=== PATIENT | female | born 1980 | race Caucasian/White ===

== ENCOUNTER 2020-01-27 12:45 | Emergency (ER) | payer MEDICAID, SELFPAY ==
[2020-01-27 12:55] VITALS: BP 124/86; PULSE 84; RESP 16; TEMP 36.6; O2SAT 98; BMI 25.4
--- NOTE | 2020-01-27 13:06 | CT_ITS ---
PROCEDURE: CT HEAD/BRAIN WO CON CLINICAL INDICATION: recheck hx subdural 01/21 continue headache Subdural hematoma follow up COMPARISON: No exams were available for comparison TECHNIQUE: Axial images obtained. All CT scans at the facility use one or more dose reduction, viz: automated exposure control, ma/kV adjustment per patient size (including targeted exams where dose is matched to indication, i.e. head), or iterative reconstruction technique. FINDINGS: No midline shift or mass effect is evident. The exam is follow-up for subdural hematoma however there are no previous studies available at this institution for comparison. There is increased density in the cortical region of the left frontal area which could be due to cortical contusion. There is some subdural I so density noted at this area which may reflect a subacute hematoma. This is difficult to quantitate without IV contrast. However, the there is no midline shift or mass effect. Mucosal thickening is present involving the left sphenoid sinus. No acute calvarial fracture. IMPRESSION: 1. Suspect small subacute subdural hematoma in the left frontal region somewhat difficult to quantitate without IV contrast. There is no midline shift or mass effect. Also suspect cortical contusion in the left frontal area 2. Left sphenoid sinus disease Dictated by: Nelson Garcia MD 01/27/2020 13:47 Nelson Garcia MD in [place] 01/27/2020 13:47
--- NOTE | 2020-01-27 13:06 | HMH.EDHA ---
ED Disposition Clinical Impression: Postconcussion syndrome Disposition: Home, Self-Care Condition on Discharge: Good Instructions: DI for Postconcussion Syndrome Referrals: Sergey Oh MD [Primary Care Provider] - 3 days - Critical Care Critical Care Time: No Attestation: On , the high probability of a clinically significant, sudden or life threatening deterioration of the following system(s) required my full and direct attention, intervention and personal management. The time I documented below is in addition to time spent performing reported procedures but includes the following listed in this critical care notation. Medical Decision Making - Medical Records Medical records reviewed: Yes: I reviewed the patient's medical records. - Anmol Inquiry Pt receiving controlled substance: No Vital Signs: 01/27/20 12:55 Temperature 98 F Temperature Source Oral Pulse Rate [Radial] 84 Respiratory Rate 16 Blood Pressure [Right Arm] 124/86 Blood Pressure Mean [Right Arm] 98 Blood Pressure Position [Right Arm] Sitting 02 Sat by Pulse Oximetry 98 Oxygen Delivery Method Room Air - Lab Data Lab results reviewed: Yes: I reviewed the patient's lab results. Lab Results 01/27/20 12:49: Urine HCG, Qual Negative - CT Data CT Scan: Head Time Received: 14:[address] Reviewed: Yes: I have reviewed the patient's CT results Findings Narrative: 1. Suspect small subacute subdural hematoma in the left frontal region somewhat difficult to quantitate without IV contrast. There is no midline shift or mass effect. Also suspect cortical contusion in the left frontal area 2. Left sphenoid sinus disease Medical Decision Narrative: Patient with subacute subdural. No acute findings. Likely postconcussive syndrome. Advised follow-up with primary care provider. I discussed this with her PCP, Dr. Oh, who agrees with plan and will follow up with the patient. Patient is neurologically intact at discharge. Headache HPI - General Chief Complaint: Headache Stated Complaint: referred by steve for head CT Time Seen by Provider: 01/27/20 13:06 Mode of Arrival: Ambulatory Limitations: No Limitations Description of Symptoms (Recalled from ER Triage Doc. by RN): to ed per pvt car pt sent by pcp for repeat head ct. pt states hx of subdural hematoma dx 01/21 due to fall at [facility] ed transferred to and d/ravi 01/22. pt states she continues with pressure type headache and hearing a continuous buzzing sound. c/o salena connell. states no relief of headache with tylenol - History of Present Illness HPI Narrative: This is a 39-year-old female with a past medical history significant for hypothyroidism who presents to the emergency department for concern of persistent headaches and hearing disturbances post fall on January 20. She had a subdural hemorrhage at that time, was discharged after admission at [facility] and advised to follow-up outpatient. However she has had persistent headaches and hearing disturbances and is sent here by her primary care provider for CT scan of the head. She denies any lateralizing motor or sensory symptoms, confusion, visual disturbances. Not take blood thinners. No exacerbating or alleviating factors. - Related Data Previous Rx's Medication Instructions Recorded levothyroxine 100 mcg tablet 100 mcg PO DAILY #120 tab 01/27/20 Allergies Allergy/AdvReac Type Severity Reaction Status Date / Time No Known Allergies Allergy Verified 01/27/20 11:17 [facility] History - Hepatitis A Screen Drug use history?: No High risk sexual behaviors?: No History of sexually transmitted infection?: No Currently employed?: No Childcare worker?: No Do you have indoor plumbing?: Yes Do you have electricity?: Yes Attestation statement:: This patient has been screened for Hepatitis A risk factors. I have reviewed the patient's past medical history: Yes Medical History: Reports
[2020-01-27 13:28] LABS: Urine Pregnancy, HCG Qual. Negative (Negative)
--- NOTE | 2020-01-27 15:11 | PC.NURSE ---
dr hammonds just spoke with dr wilson
[2020-01-27 15:20] VITALS: BP 122/74; PULSE 78; RESP 16; TEMP 36.6; O2SAT 98
== END 2020-01-27 15:21 | disposition home or self-care (01) ==
PROVIDERS: Emergency Provider Emergency Medicine; PCP Family Medicine
DX: G44.319 Acute post-traumatic headache, not intractable (principal); F07.81 Postconcussional syndrome; S06.5X9D Traumatic subdural hemorrhage with loss of consciousness of unspecified duration, subsequent encounter; E03.9 Hypothyroidism, unspecified; F17.210 Nicotine dependence, cigarettes, uncomplicated; Z85.850 Personal history of malignant neoplasm of thyroid
CPT/HCPCS: 70450; 81025; 99282

== ENCOUNTER 2020-02-25 10:31 | Emergency (ER) | payer MEDICAID, SELFPAY ==
[2020-02-25 10:36] VITALS: BP 132/81; PULSE 86; RESP 18; TEMP 36.6; O2SAT 99; BMI 25.4
[2020-02-25 10:54] VITALS: BP 132/81; PULSE 86; RESP 18; TEMP 36.6; O2SAT 99; BMI 25.2
--- NOTE | 2020-02-25 10:56 | HMH.EDUTC ---
[facility] [place] Clinical Impression: Generalized pruritus Disposition: Home, Self-Care Condition on Discharge: Good Instructions: DI for Scabies Additional Instructions: Use the medications as prescribed. Follow up with your primary care doctor. Don't pick at your skin or the irritated places on your skin. GO TO THE ER FOR ANY WORSENING SYMPTOMS OR CONCERNS Prescriptions: diphenhydrAMINE HCL [Diphenhydramine HCl] 25 mg PO Q6HP PRN #30 cap PRN Reason: Itching Transmission Status: Received by [id number] Permethrin [Elimite] 1 applicatio TP ONCE #1 bottle Transmission Status: Received by [id number] Referrals: Sergey Oh MD [Primary Care Provider] - Time of Disposition: 11:07 Medical Decision Making - Medical Records Medical records reviewed: No: I reviewed the patient's medical records. - Anmol Inquiry Pt receiving controlled substance: No Vital Signs: 02/25/20 10:36 02/25/20 10:54 02/25/20 11:27 Temperature 97.9 F 97.9 F 98.2 F Temperature Source Oral Oral Oral Pulse Rate 84 Pulse Rate [Radial] 86 86 Respiratory Rate 18 18 16 Blood Pressure 0/0 L Blood Pressure [Right Arm] 132/81 132/81 Blood Pressure Mean [Right Arm] 98 98 Blood Pressure Source Automatic Cuff Blood Pressure Source [Right Arm] Automatic Cuff Automatic Cuff Blood Pressure Position Sitting Blood Pressure Position [Right Arm] Sitting Sitting 02 Sat by Pulse Oximetry 99 99 Oxygen Delivery Method Room Air Room Air Room Air [facility] HPI - General Stated complaint: Possible parasite in skin Time Seen by Provider: 02/25/20 10:56 Mode of Arrival: Ambulatory Source of Information: Patient Limitations: No Limitations Description of Symptoms (Recalled from Triage Doc. by RN): States she has something under her skin that showed up after she showered. - History of Present Illness Provider Complaint: She states that she has a parasite under her skin. She has had itching of her arms, upper back and multiple areas on arms and legs. She denies any fever or chills. - Related Data Previous Rx's Medication Instructions Recorded levothyroxine 100 mcg tablet 100 mcg PO DAILY #120 tab 01/27/20 Permethrin [Elimite] 1 applicatio TP ONCE #1 bottle 02/25/20 diphenhydrAMINE HCL 25 mg PO Q6HP PRN #30 cap 02/25/20 [Diphenhydramine HCl] Allergies Allergy/AdvReac Type Severity Reaction Status Date / Time No Known Allergies Allergy Verified 01/27/20 11:17 [facility] History - Hepatitis A Screen Attestation statement:: This patient has been screened for Hepatitis A risk factors. I have reviewed the patient's past medical history: Yes Medical History: Reports:: Cancer (thyroid cancer dx 08/2019) Other Medical History: Reports: Hypothyroidism Laterality Cases: Right: Arthroscopy Knee, Bilateral: Tonsillectomy Other Surgeries: Yes: Cholecystectomy, Comment: total thyroidectomy - Social History Smoking Status: Current every day smoker # Packs/Day (cigarettes): 1 Alcohol Intake: current Alcohol Intake Frequency:: holidays/special occasions only Substance Use Type: denies use Occupational Status: unemployed Household Members: family ROS Obtained: Yes All systems reviewed & no additional complaints - Constitutional Constitutional: Denies chills, Denies fever(s) - Eyes Eyes: Denies eye discharge - ENT Ears, Nose, Mouth, and Throat: Denies dizziness, Denies otalgia, Denies sore throat - Cardiovascular Cardiovascular: Denies chest pain - Respiratory Respiratory: No chest congestion, No cough - Integumentary/Breasts Skin/Breast: Reports as per HPI Physical Exam - General General appearance: alert, in no apparent distress - Head Head exam: atraumatic, normocephalic, normal inspection - Eye Eye exam: Present: normal appearance, PERRL, EOMI - ENT ENT exam: Present: normal exam, normal oropharynx, mucous membranes moist, TM's normal bilaterally, normal ext
[2020-02-25 11:27] VITALS: BP 0/0; PULSE 84; RESP 16; TEMP 36.8; O2SAT 98
--- NOTE | 2020-02-25 11:29 | PC.NURSE ---
Pt upset at discharge and advises that she will not sign papers because she wanted us to remove parasite from her skin. No evidence of any bigs on pt skin at this time. Advise pt Fletcher had called medicine in for her she replies with Fine fuck you whatever and leaves without signing d/c papers.
== END 2020-02-25 11:30 | disposition home or self-care (01) ==
PROVIDERS: Emergency Provider Nurse Practitioner Family; PCP Family Medicine
DX: L29.8 Other pruritus (principal)
CPT/HCPCS: 99201

== ENCOUNTER → 2020-04-07 16:06 | Outpatient (CLI) | payer MEDICAID, SELFPAY ==
[2020-04-07 16:22] LABS: Amphetamine/Metha Screen,Urine Positive ng/ml (<1000)
[2020-04-07 16:23] LABS: Barbiturates Screen,Urine Negative ng/ml (<200); Benzodiazepines Screen,Urine Negative ng/ml (<200)
[2020-04-07 16:24] LABS: Cannabinoid Screen,Urine Negative ng/ml (<50); Cocaine Screen,Urine Negative ng/ml (<300)
[2020-04-07 16:25] LABS: Methadone Screen,Urine Negative ng/ml (<300)
[2020-04-07 16:26] LABS: Opiate Screen,Urine Negative ng/ml (<300); Phencyclidine Screen,Urine Negative ng/ml (<25)
[2020-04-11 10:49] LABS: Neisseria gonorrhoeae, NAA Negative (Negative)
== END ==
PROVIDERS: Visit Provider Family Medicine
DX: L29.9 Pruritus, unspecified (principal); N89.8 Other specified noninflammatory disorders of vagina; Z79.899 Other long term (current) drug therapy
CPT/HCPCS: 80305; 87491; 87591

== ENCOUNTER → 2021-06-22 19:49 | Outpatient (CLI) | payer MEDICAID, SELFPAY ==
[2021-06-22 19:24] LABS: Opiate Screen,Urine Negative ng/ml (<300)
[2021-06-22 19:25] LABS: Phencyclidine Screen,Urine Negative ng/ml (<25)
[2021-06-22 19:36] LABS: Barbiturates Screen,Urine Negative ng/ml (<200)
[2021-06-22 19:37] LABS: Benzodiazepines Screen,Urine Negative ng/ml (<200)
[2021-06-22 19:38] LABS: Amphetamine/Metha Screen,Urine Negative ng/ml (<1000); Cannabinoid Screen,Urine Positive ng/ml (<50)
[2021-06-22 19:39] LABS: Cocaine Screen,Urine Negative ng/ml (<300); Methadone Screen,Urine Negative ng/ml (<300)
== END ==
PROVIDERS: Visit Provider Family Medicine
DX: F19.11 Other psychoactive substance abuse, in remission (principal); C73 Malignant neoplasm of thyroid gland
CPT/HCPCS: 80305; 84443

== ENCOUNTER → 2022-05-16 15:54 | Outpatient (CLI) | payer MEDICAID, SELFPAY ==
--- NOTE | 2022-05-16 16:02 | XR_ITS ---
FINAL REPORT CLINICAL HISTORY: pulm lesion FINDINGS: PA and lateral views of the chest are obtained. There is no prior exam for comparison. The cardiac and mediastinal silhouettes are within normal limits. The lungs are hyperinflated but clear. There is no pleural effusion, pneumothorax, or acute osseous abnormality. IMPRESSION: No radiographic evidence of acute cardiac or pulmonary disease. Reviewed, Interpreted and Dictated by Linh Vines MD Transcribed by Kasia Mon Authenticated and [facility]
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
== END ==
PROVIDERS: PCP Family Medicine; Visit Provider Family Medicine
DX: J98.4 Other disorders of lung (principal); T14.8XXA Other injury of unspecified body region, initial encounter
CPT/HCPCS: 71046; 73030

== ENCOUNTER → 2023-01-13 23:38 | Outpatient (CLI) | payer SELFPAY ==
[2023-01-13 18:26] LABS: Alanine Aminotransferase 23 U/L (12-78); Albumin Level 4.2 g/dl (3.5-5.0); Albumin/Globulin Ratio 1.4 (1.1-1.8); Alkaline Phosphatase 94 U/L (38-126); Anion Gap 10.1 mEq/L (5-15); Aspartate Amino Transferase 40 U/L (14-36); Blood Urea Nitrogen 12 mg/dl (7-17); Calcium 8.7 mg/dl (8.4-10.2); Carbon Dioxide 32 mmol/L (22.0-30.0); Chloride 105 mmol/L (98-107); Estimated Glomerular Filt Rate 91 ml/min (>60); GFR (African American) 110 ML/MIN (>60); Globulin 3.1 g/dL (1.3-3.2); Glucose 77 mg/dl (74-100); Potassium 4.1 mmoL/L (3.5-5.1); Sodium 143 mmol/L (136-145); Total Protein,Serum 7.3 g/dl (6.3-8.2)
[2023-01-13 18:33] LABS: Bilirubin,Total 0.1 mg/dl (0.2-1.3)
[2023-01-13 18:39] LABS: T4 (Thyroxine) 13.4 ug/dl (5.53-11.0)
== END ==
PROVIDERS: PCP Family Medicine; Visit Provider Family Medicine
DX: Z00.00 Encounter for general adult medical examination without abnormal findings (principal)
CPT/HCPCS: 80053; 84436; 84443

== ENCOUNTER 2024-09-07 13:08 | Outpatient (CLI) | payer OTHER, SELFPAY ==
--- OUTSIDE RECORDS SUMMARY | 2024-09-07 13:24 | XMS_ITS | Encounter Summary ---
Author Organization Healthcare Address [address] [place] [address] Care Team Providers Care Kennel Staff Member Name Role Phone Sergey Oh MD Primary Care Provider [phone] Jean Mak MD Unavailable [phone] Encounter Details Date Type Department Care Team (Late st Contact Info) Description 12/06/2023 Orders Only External Location [address] [place] [address] Provider, External Social History Tobacco Use Types Packs/Day Years Used Date Smoking Tobacco: Every Day Cigarettes 1 32 Started: 03/31/1994 Passive Smoke Exposure: Current Smokeless Tobacco: Never Comments:Vaping Alcohol Use Standard Drinks/Week Comments Not Currently 2 (1 standard drink = 0.6 oz pur e alcohol) Occasional PHQ-2 Answer Date Recorded Patient Health Questionnaire-2 Score 0 09/04/2023 PHQ-2A Answer Date Recorded Patient Health Questionnaire-2 Score 1 07/11/2022 Education Answer Date Recorded What is the highest level of school you have completed or the highest degree you have received? 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 [phone] 09/23/2024 10:00 AM EDT Clinical Support [facility] [address] [facility] [address] [place] [phone] 09/23/2024 10:50 AM EDT Office Visit [facility] [address] [place] [phone] Moris Valente MD [address] [place], [place] [phone] 09/29/2024 9:40 AM EDT Office Visit [facility] [address] [facility] [address] [place] [phone] Danny Coon MD [address] [place] [phone] 09/29/2024 11:30 AM EDT Appointment [facility] Radiology [address] [place] [phone] 12/23/2024 2:00 PM EDT Office Visit [facility] [address], [address] [place] [phone] Radha Montelongo, BILLING AND QUALITY TECHNICIAN [address] [facility] [address] [place] [address] documented as of this encounter Procedures Procedure Name Priority Date/Time Associated Diagnosis Comments CT THORACIC OUTSIDE IMAGES 12/06/2023 5:26 PM EDT documented in this encounter Results * CT THORACIC OUTSIDE IMAGES (12/06/2023 5:26 PM EDT) Anatomical Region Laterality Modality Computed Tomogra phy 12/06/2023 5:26 PM EDT us External Provider IMG CT PROCEDURES Final Result documented in this encounter Visit Diagnoses Not on filedocumented in this encounter Additional Health Concerns Assessment Noted Time PHQ-9 Depression Total Score: 11 022 9:07 AM EDT A fall risk assessment has been complete d for the patient 10/29/2023 12:12 PM EDT A Body Mass Index follow-up plan has been documented for the patient 09/10/2023 11:55 AM EDT documented as of this encounter Care Teams Kennel Staff Member Relationship Specialty Start Date End Date Sergey Oh MD PCP - General 11/13/21 Jean Mak MD [address] [place] [address] [phone] Surgeon Otolaryngology 11/21/21 documented as of this encounter
--- OUTSIDE RECORDS SUMMARY | 2024-09-07 13:24 | XMS_ITS | Encounter Summary ---
Author Organization Healthcare Address [address] [place] [address] Care Team Providers Care Dope Heater Name Role Phone Sergey Oh MD Primary Care Provider [phone] Jean Mak MD Unavailable [phone] Encounter Details Date Type Department Care Team (Late st Contact Info) Description 12/11/2023 Orders Only External Location [address] [place] [address] Provider, External Social History Tobacco Use Types [...] Info) Description 09/23/2024 8:40 AM EDT Appointment [facility] [address] [phone] 09/23/2024 10:00 AM EDT Clinical Support [facility] [address] [facility] [address] [place] [phone] 09/23/2024 10:50 AM EDT Office Visit [facility] [address] [place] [phone] Moris Valente MD [address] [place], [place] [phone] 09/29/2024 9:40 AM EDT Office Visit [facility] [address] [facility] [address] [place] [phone] Danny Coon MD [address] [place] [phone] 09/29/2024 11:30 AM EDT Appointment [facility] Radiology [address] [place] [phone] 12/23/2024 2:00 PM EDT Office Visit [facility] [address] [place] [phone] Radha Montelongo, LITHOPONE MILL WORKER [address] [facility] [address] [place] [phone] documented as of this encounter Procedures Procedure Name Priority Date/Time Associated Diagnosis Comments XR THORACIC OUTSIDE IMAGES 12/11/2023 10:31 PM EDT documented in this encounter Results * XR THORACIC OUTSIDE IMAGES (12/11/2023 10:31 PM EDT) Anatomical Region Laterality Modality Radiographic Jeniffer ging 12/11/2023 10:3 1 PM EDT us External Provider IMG XR PROCEDURES Final Result documented in this encounter [...] documented as of this encounter Care Teams Dope Heater Relationship Specialty Start Date End Date Sergey Oh MD PCP - General 11/13/21 Jean Mak MD [address] [place] [address] [phone] Surgeon Otolaryngology 11/21/21 documented as of this encounter
--- OUTSIDE RECORDS SUMMARY | 2024-09-07 13:24 | XMS_ITS | Data Portability ---
Author Organization [facility] Address [address] [place] [address] Assessment No assessment recorded. 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 Referral None recorde d. Procedures nebuliz er treatme nt (PROC) 2024 025 [email or web address] Not available 06/18/2024 16:45:16 Surgeries None recorde d. Imaging XR, thoraci c spine, 2 view 2024 025 [facility] [address], [place], [address], 05/27/2024 14:48:25 XR, lumbar spine, 2 view 2024 025 [facility]), [facility] [address], [place], [address], 05/27/2024 14:48:25 Medication Orders hydroco done 7.5 mg-acet aminoph en 325 mg tablet 2024 025 [facility], [address] [place] [address], [place], [address], 06/18/2024 16:54:41 ceftria xone 1 gram solutio n for injecti on 2024 025 [email or web address] Not available 06/23/2024 16:06:41 ipratro pium 0.5 mg-albu terol 3 mg (2.5 mg base)/3 mL nebuliz ation soln 2024 [facility] [place] [facility], [address] [place] [address], [address], 06/18/2024 16:26:12 hydroco done 7.5 mg-acet aminoph en 325 mg tablet 2024 025 [facility] [place] [facility], [address] [place] [address], [place], [address], 05/27/2024 13:47:00 ketorol ac 60 mg/2 mL intramu scular solutio n 2024 025 [email or web address] Not available 06/28/2024 08:31:55 ketorol ac 10 mg tablet 2024 025 [facility] [place] [facility], [address] [place] [address], [address], 05/27/2024 14:07:59 hydroco done 7.5 mg-acet aminoph en 325 mg tablet [address], [address], 03/25/2024 10:29:34 olanzap ine 10 mg tablet [address], [address], 05/27/2024 13:52:26 Ventoli n HFA 90 mcg/act uation aerosol inhaler 2023 024 [facility], [address] [place], [address], 03/04/2024 17:01:03 hydroco done 7.5 mg-acet aminoph en 325 mg tablet 2023 024 MARK [facility], [address] [place], [address], 03/04/2024 17:01:01 Patient TargetsNo targets recorded. Patient InstructionsNo instructions recorded. Reason for Referral None Reported. Results Created Date Observation Date Name Description Value Unit Range Abnormal Flag Note LastModifiedBy Organization Detail LastModifiedTime 01/20/20 24 12/06/2023 CT, abdom en + pelvi s, w/ contr ast No observ ation record ed. [email or web address] Not Available 2023 08:01:47 01/20/20 24 12/06/2023 CT, abdom en + pelvi s, w/ contr ast No observ ation record ed. [email or web address] Not Available 2023 08:01:48 01/20/20 24 12/11/2023 CT, abdom en + pelvi s, w/ contr ast No observ ation record ed. [email or web address] Not Available 12/30 16:34:15 02/16/20 24 02/13/2024 MAMMO , scree kendall, digit al, bilat eral [facility] Name: MARJAN FERNY Caruso [facility] Phys: [address] [employer] [employer]) ,[place] [address] : 1980 Age: 43 Sex: F Acct: [id number] Loc: G.MAMM PHONE #: [phone] Exam Date: 2023 Status : DEP CLI FAX #: Rad# [id number] Unit# [id number] Admit Date: 2023 EXAMS: CPT CODE: [id number] SCN DIG BREAST TOMOSY N ALLEN 19345 BILATE RAL DIGITA L SCREEN ING MAMMOG AMANDO WITH CAD AND 3D TOMOSY NTHESI S, 2023: CLINIC AL HISTOR Y: Routin e screen ing. No breast proble ms. [place] al aunt with breast carcin tiffany COMPAR DOMINICK: Prior mammog amando, 022 and 07/01/19 21 FINDIN GS: Bilate ral digita l MLO and CC views with CAD and 3D tomosy nthesi s were perfor med by Bree kebede, RT. These demons trate scatte red fibrog landul ar densit ies, unchan ged in config uratio n from prior exams. There is no domina nt mass, chioma ectura l distor tion, or suspic ious calcif icatio n, bilate rally. IMPRES LAMONTE: STABLE NEGATI VE MAMMOG ROSALINDA. RECOMM END ANNUAL SCREEN ING MAMMOG AMANDO. CAT1 - CATEGO RY 1, NEGATI VE 1YR - 1 YEAR DISCLA MINA: *The patien t with a palpab le abnorm ality, unexpl ained by breast imagin benji, should be manage d on clinic al basis by the attend ing physic blanca. *Niki kebede najma leblanc has a false negati ve rate of 15%. *The patien t was notifi ed by mail of the result s of this examin ation. *The patien t's inform ation was entere d into a remind er system with a target due date for the next mammog aliyah. *The mammog aliyah was review ed by a radiol ogist and CAD. Electr onical ly Signed by CHEIKH KILLIAN MD on 2023 at 1739 Report ed and signed by: CHEIKH KILLIAN MD PAGE 1 Signed Report (SALOMON NUED) [facility] Name: FERNY INGRAM [facility] [place] Phys: Cisco ([employer]) ,[place] [address] : 1980 Age: 43 Sex: F Acct: [id number] Loc: G.MAMM PHONE #: [phone] Exam Date: 2023 Status : DEP CLI FAX #: Rad# [id number] Unit# [id number] Admit Date: 2023 EXAMS: CPT CODE: [id number] SCN DIG BREAST TOMOSY N ALLEN 26200 CC: Altaf Peck (Apple ton) ; VINCENT MAYER MD; Sergey Oh MD Dictat ed Date/T sinan: 2023 (1739) Techno logist : JARRET BECKET T Transc ribed Date/T sinan: 2023 (1739) Transc riptio nist: DR.HAG SHANIA Johnson onic Signat ure Date/T sinan: 2023 (1739) Printe d Date/T sinan: 2023 (1714) BATCH NO: N/A PAGE 2 Signed Report CC'ed Logic: Orderi ng Provid er: APPLET ON ALTAF Attend ing Provid er: APPLET ON ALTAF Referr ing Provid er: APPLET ON ALTAF Consul ting Provid er: MORENO ARANA [address] [place], [address], 03/16/2024 12:50:29 05/27/19 25 05/27/2024 XR, thora cic spine , 2 view No observ ation record ed. [address] (Centralized Scheduling) [address] [place] [address] [place], [address], 05/28/2024 12:57:58 05/27/19 25 05/27/2024 XR, lumba r spine , 2 view No observ ation record ed. [address] (Centralized Scheduling) [address] [place] [address] [place], [address], 05/28/2024 12:57:59 Result Notes None recorded. Problems Name Problem SNOMED Code Status Onset Date Resolution Date Notes Provider Name and Address Organization Details Recorded Time Sinusitis 86368392 Completed 201705/19/2020 MAURICE Cox - [facility] 1 14:56:18 Malignant tumor of thyroid gland 629655268 Active Lori MAURICE Burrows - [facility] 3 14:13:49 Suspected COVID-19 107547361 Completed 05/19/2020 Removal Reason: Problem added by user [email or web address] from the COVID-19 watch flag Shi Sneed null, [place] - [facility] 1 14:56:55 History of hepatitis B 484049092 Active 2020 Lori rosenberg, [place] - [facility] 3 14:13:41 Cervical intraepit helial neoplasia grade III with severe dysplasia 597136830 Active 2022 MAURICE Win - [facility] 3 14:13:36 Adult health examinati on Completed 201609/15/2017 Riddhi Knox MD [address], [place], [address], [place] - [facility] 8 17:07:52 Malignant neoplasm of rectum 894966804 Active 2023 Rosalee [place]berg, [place] - [facility] 4 17:03:09 Problem Notes None recorded. Procedures Surgical History Date Name Laterality Status Provider Name and Address Organization Details Recorded Time 02/02/20 24 IV Infusion completed Rosalee Florentino [place] - [facility] 02/02/2024 17:07:58 12/19/19 24 Medication Reconcilliation completed Daria Sullivan [place] - [facility] 12/19/2023 16:26:21 07/22/19 24 Date of Last Pap Smear completed Avelina Lamas APRN [address], [place], [address], [place] - [facility] 07/29/2023 08:30:14 04/24/19 23 Cold Knife Cone completed Lori Langley [place] - [facility] 05/02/2022 14:15:02 04/04/19 23 Colposcopy completed Avelina Lamas APRN [address], [place], [address], [place] - [facility] 04/04/2022 13:08:25 04/04/19 23 Colposcopy completed Avelina Lamas APRN [address], [place], [address], [place] - [facility] 04/04/2022 13:08:55 04/04/19 23 Colposcopy completed Avelina Lamas APRN [address], [place], [address], [place] - [facility] 04/04/2022 13:09:12 09/21/19 22 Date of Last Mammogram completed Avelina Lamas, [employer] [address], [place], [address], [place] - [facility] 03/13/2022 09:55:52 08/15/19 21 Colposcopy cancelled Miguelina Durand [place] - [facility] 07/26/2020 08:35:54 06/03/19 21 Systolic B/P less than 130 mm Hg completed Avelina Lamas, [employer] [address], [place], [address], [place] - [facility] 06/05/2020 06:02:52 06/03/19 21 Diastolic B/P less than 80 mm Hg completed Avelina Lamas, [employer] [address], [place], [address], [place] - [facility] 06/05/2020 06:02:56 05/19/19 21 Systolic B/P less than 130 mm Hg completed Shi Naren [place] - [facility] 05/19/2020 15:01:32 05/19/19 21 Diastolic B/P less than 80 mm Hg completed Shi Priceshruthi RICHARDS - [facility] 05/19/2020 15:01:35 03/29/20 02 delivery completed Archana Frederick MAURICE - [facility] 06/02/2020 16:11:04 03/29/20 01 Tubal Ligation completed Isabela Martinez MAURICE - [facility] 04/05/2016 10:34:26 03/31/18 99 Cholecystectomy, laparoscopic completed Isabela Martinez MAURICE - [facility] 04/05/2016 10:33:43 03/31/18 80 Tonsillectomy completed Isabela Martinez MAURICE - [facility] 04/05/2016 10:34:43 thyroidectomy completed Archana Frederick MAURICE - [facility] 06/02/2020 16:18:00 excision of lymph node completed Archana RICHARDS - [facility] 03/12/2022 15:32:16 Knee Surgery completed Archana RICHARDS - [facility] 07/22/2023 16:25:32 Imaging Results None recorded. Procedure Notes None recorded. Medical Equipment None Reported. Allergies No known drug allergies Medications Name Sig Start Date Stop Date Status Note LastModified by Organization Details LastModified Time cyclobenz aprine 10 mg tablet TAKE ONE (1) TABLET THREE (3) TIMES A DAY BY ORAL ROUTE FOR 14 DAYS. active Not Available Not Available No t Available fluconazo le 100 mg tablet TAKE 1 TABLET BY MOUTH ONCE DAILY 02/01 completed Not Available Not Available Not Available methocarb nalini 500 mg tablet 07/21 completed Not Available Not Available Not Available Nicotrol NS 10 mg/mL nasal spray ADMINIST ER ONE (1) SPRAY INTO EACH NOSTRIL EVERY ONE (1) HOUR IF NEEDED (NICOTIN E CRAVINGS ). 06/28 completed Not Available Not Available Not Available levothyro xine 137 mcg tablet TAKE 1 TABLET BY MOUTH DAILY 07/21 completed Not Available Not Available Not Available ipratropi um 0.5 mg-albute rol 3 mg (2.5 mg base)/3 mL nebulizat ion soln INHALE THREE (3) ML FOUR (4) TIMES A DAY BY NEBULIZA TION ROUTE DIRECTED FOR 30 DAYS. active Not Available Not Available No t Available Depo-Medr ol 40 mg/mL suspensio n for injection Take 40 mg by injectio n route. 05/19 completed Not Available Not Available Not Available albuterol sulfate 2.5 mg/3 mL (0.083 %) solution for nebulizat ion INHALE 3ML VIA NEBULIZE R EVERY SIX HOURS active Not Available Not Available No t Available loperamid e 2 mg capsule active Not Available Not Available Not Available Cortispor in 3.5 mg/mL-10, 000 unit/mL-1 % ear drops,medhat pension instill 4 drops into affected ear(s) by otic route 3 times per day 07/30 completed Cortispo rin 3.5-10,0 00-1 mg/mL-un it/mL-% otic drops,montoya spension ;Recorde d Status: Recorded on: 03/20/20 11 4:05PM;D iscontin ued Status: Disconti nued on: 07/31/19 12 1:41PM;U ser: gillisa; Indicati on: Otitis Externa - ( 00);Prin lisbet: 03/20/20 11 Not Available Not Available Not Available azithromy jered 250 mg tablet 03/06 completed Not Available Not Available Not Available pravastat in 40 mg tablet take 1 tablet (40 mg) by oral route once daily for 30 days 10/21 completed pravasta tin 40 mg oral tablet;R ecorded Status: Recorded on: 03/18/20 13 9:41AM;D iscontin ued Status: Disconti nued on: 10/22/19 15 3:12PM;U ser: [email or web address] ;Est. Completi on: 06/17/19 14;Indic ation: Hypercho lesterol emia - ();Prin lisbet: 03/30/20 13 Not Available Not Available Not Available ibuprofen 800 mg tablet TAKE 1 TABLET BY MOUTH THREE TIMES DAILY FOR 15 DAYS NEEDED 03/12 completed Not Available Not Available Not Available hydrocodo ne 5 mg-acetam inophen 325 mg tablet TAKE 1 TO 2 TABLETS BY MOUTH EVERY 6 HOURS NEEDED FOR PAIN 02/01 completed Not Available Not Available Not Available meloxicam 15 mg tablet Take 1 tablet every day by oral route. 05/19 completed Not Available Not Available Not Available ondansetr on HCl 4 mg tablet 01/30 completed Not Available Not Available Not Available prednison e 20 mg tablet 03/06 completed Not Available Not Available Not Available betametha aris, augmented 0.05 % topical cream 09/15 completed Not Available Not Available Not Available sertralin e 100 mg tablet 1 tab daily 09/15 completed Not Available Not Available Not Available permethri n 5 % topical cream APPLY FROM THE NECK DOWN AND LEAVE ON FOR 8 TO 12 HOURS. IF NOT RESOLVED REPEAT IN 14 DAYS 05/19 completed Not Available Not Available Not Available penicilli n V potassium 500 mg tablet take 1 tablet (500 mg) by oral route 2 times per day for 10 days 01/13 completed penicill in V potassiu m 500 mg oral tablet;R ecorded Status: Recorded on: 07/31/19 12 1:53PM;D iscontin ued Status: Disconti nued on: 01/14/20 12 4:53PM;U ser: gillisa; Est. Completi on: 08/10/19 12;Print ed: 05/02/20 12 Not Available Not Available Not Available olanzapin e 10 mg tablet TAKE ONE (1) TABLET EVERY DAY BY ORAL ROUTE AFTER A MEAL FOR 30 DAYS. 05/27 completed Not Available Not Available Not Available Calcium Antacid 200 mg (as calcium carbonate 500 mg) chewable tablet CHEW 2 TABLETS PO BID 05/19 completed Not Available Not Available Not Available metronida zole 500 mg tablet TAKE 1 TABLET BY MOUTH TWICE DAILY 05/02 completed Not Available Not Available Not Available hydroxyzi ne HCl 50 mg tablet TAKE ONE (1) TABLET BY MOUTH TWICE DAILY AT BEDTIME active Not Available Not Available No t Available prochlorp erazine maleate 10 mg tablet active Not Available Not Available Not Available tramadol 50 mg tablet TAKE 1 TABLET BY MOUTH EVERY 4 HOURS NEEDED FOR PAIN OR CRAMPS OR SEVERE PAIN 07/21 completed Not Available Not Available Not Available Robitussi n-DM 10 mg-100 mg/5 mL oral syrup take 10 millilit ers by oral route every 4 hours as needed 07/30 completed Hawkituss in-DM 10-100 mg/5 mL oral syrup;Re corded Status: Recorded on: 03/20/20 11 4:05PM;D iscontin ued Status: Disconti nued on: 07/31/19 12 1:41PM;U ser: gillisa; Indicati on: Cough - ([phone]);Prin lisbet: 03/20/20 11 Not Available Not Available Not Available ondansetr on 8 mg disintegr ating tablet PLACE ONE (1) TABLET TWICE A DAY BY TRANSLIN GUAL ROUTE NEEDED FOR 7 DAYS, FOR NAUSEA. 06/28 completed Not Available Not Available Not Available ketorolac 10 mg tablet TAKE ONE (1) TABLET FOUR (4) TIMES A DAY BY ORAL ROUTE AFTER MEAL(S) FOR FIVE (5) DAYS. active Not Available Not Available No t Available levothyro xine 100 mcg tablet TAKE 1 TABLET BY MOUTH EVERY DAY IN THE MORNING ON AN EMPTY STOMACH 03/12 completed Not Available Not Available Not Available levothyro xine 88 mcg tablet TAKE 1 TABLET BY MOUTH EVERY MORNING BEFORE BREAKFAS T 05/19 completed Not Available Not Available Not Available ceftriaxo ne 1 gram solution for injection Take 1 g by injectio n route. 06/23 completed Not Available Not Available Not Available famotidin e 20 mg tablet 06/28 completed Not Available Not Available Not Available dicyclomi ne 20 mg tablet 04/19 completed Not Available Not Available Not Available lorazepam 2 mg tablet TAKE 1 TABLET BY MOUTH EVERY NIGHT AT BEDTIME NEEDED FOR ANXIETY 07/21 completed Not Available Not Available Not Available benzonata te 100 mg capsule 01/30 completed Not Available Not Available Not Available hydrocodo ne 7.5 mg-acetam inophen 325 mg tablet TAKE ONE (1) TABLET BY MOUTH THREE (3) TIMES DAILY AFTER MEALS active Not Available Not Available No t Available pantopraz ole 40 mg tablet,de layed release 07/21 completed Not Available Not Available Not Available cyanocoba josee (vit B-12) 1,000 mcg/mL injection solution Inject 1 mL every month by subcutan eous route for 1 day. 06/28 completed Not Available Not Available Not Available oseltamiv ir 75 mg capsule 01/30 completed Not Available Not Available Not Available calcitrio l 0.5 mcg capsule TAKE 1 CAPSULE BY MOUTH DAILY 05/19 completed Not Available Not Available Not Available levothyro xine 125 mcg tablet TAKE 1 TABLET BY MOUTH EVERY DAY active Not Available Not Available No t Available tobramyci n 0.3 % eye drops 04/05 completed Not Available Not Available Not Available Lincocin 300 mg/mL injection solution Take 1 mL by injectio n route. 06/02 completed Not Available Not Available Not Available ranitidin e 150 mg tablet Take 1 tablet twice a day by oral route as needed. 05/19 completed Not Available Not Available Not Available dexametha sone 4 mg tablet 06/23 completed Not Available Not Available Not Available clotrimaz ole-betam ethasone 1 %-0.05 % topical cream APPLY TOPICALL Y TO THE AFFECTED AND SURROUND ING AREAS TWICE DAILY IN THE MORNING AND IN THE EVENING FOR 2 WEEKS 07/21 completed Not Available Not Available Not Available albendazo le 200 mg tablet TAKE 4 TABLETS BY MOUTH 1 TIME FOR 1 DOSE 05/19 completed Not Available Not Available Not Available promethaz ine 25 mg tablet Take 1 tablet every 6-8 hours by oral route. 04/19 completed Not Available Not Available Not Available ibuprofen 200 mg tablet Pt is taking 5 tablets 1000mg daily 01/13 completed ibuprofe n 200 mg oral tablet;R ecorded Status: Recorded on: 07/31/19 12 1:41PM;D iscontin ued Status: Disconti nued on: 01/14/20 12 4:53PM;U ser: earlywin ec Not Available Not Available Not Available betametha sone dipropion ate 0.05 % topical cream APPLY A THIN LAYER TO THE AFFECTED AREA(S) BY TOPICAL ROUTE ONCE DAILY 05/19 completed Not Available Not Available Not Available omeprazol e 20 mg capsule,d elayed release take 1 capsule (20 mg) by oral route once daily before a meal 07/30 completed omeprazo le 20 mg oral capsule, delayed release( DR/EC);R ecorded Status: Recorded on: 03/20/20 11 4:06PM;D iscontin ued Status: Disconti nued on: 07/31/19 12 1:41PM;U ser: [email or web address]; Est. Completi on: 05/19/19 12;Indic ation: Gastroes ophageal Reflux - (.[phone]);Prin lisbet: 03/20/20 11 Not Available Not Available Not Available Banophen 25 mg capsule TK 1 C PO Q 6 H PRN 05/19 completed Not Available Not Available Not Available tenofovir disoproxi l fumarate 300 mg tablet TAKE 1 TABLET BY MOUTH ONCE DAILY active Not Available Not Available No t Available mupirocin 2 % topical ointment JONATHAN EXT AA Q 12 H FOR 5 DAYS 05/19 completed Not Available Not Available Not Available ergocalci ferol (vitamin D2) 1,250 mcg (50,000 unit) capsule TAKE ONE (1) CAPSULE BY MOUTH ONE (1) TIME PER WEEK. active Not Available Not Available No t Available dexametha sone sodium phosphate 4 mg/mL injection solution Inject 1 mL by intramus cular route. 06/02 completed Not Available Not Available Not Available ibuprofen 600 mg tablet TAKE 1 TABLET BY MOUTH EVERY 6 HOURS WITH FOOD NEEDED FOR PAIN OR CRAMPS 05/21 completed Not Available Not Available Not Available levofloxa jered 500 mg tablet Take 1 tablet every day by oral route. 04/24 completed Not Available Not Available Not Available methylpre dnisolone 4 mg tablets in a dose pack FOLLOW PACKAGE DIRECTIO NS 03/12 completed Not Available Not Available Not Available ketorolac 60 mg/2 mL intramusc ular solution Inject 2 mL every 6 hours by intramus cular route for 1 day. 06/28 completed Not Available Not Available Not Available ondansetr on 4 mg disintegr ating tablet 04/19 completed Not Available Not Available Not Available fluticaso ne propionat e 50 mcg/actua tion nasal spray,medhat pension [place] 1 spray every day by intranas al route. 05/19 completed Not Available Not Available Not Available doxycycli ne hyclate 100 mg tablet TAKE 1 TABLET BY MOUTH TWICE A DAY 05/19 completed Not Available Not Available Not Available levothyro xine 112 mcg tablet TAKE 1 TABLET BY MOUTH ONCE DAILY 11/03 completed Not Available Not Available Not Available amoxicill in 875 mg-potass ium clavulana te 125 mg tablet TAKE 1 TABLET BY MOUTH EVERY 12 HOURS FOR 7 DAYS 06/02 completed Not Available Not Available Not Available Ventolin HFA 90 mcg/actua tion aerosol inhaler INHALE TWO (2) PUFFS FOUR (4) TIMES DAILY NEEDED FOR SHORTNES S OF BREATH OR WHEEZING active Not Available Not Available No t Available olanzapin e 5 mg disintegr ating tablet 05/27 completed Not Available Not Available Not Available Bactrim DS 800 mg-160 mg tablet take 1 tablet by oral route 2 times per day for 10 days 10/21 completed Bactrim DS 800-160 mg oral tablet;R ecorded Status: Recorded on: 02/24/20 14 2:08PM;D iscontin ued Status: Disconti nued on: 10/22/19 15 3:12PM;U ser: [email or web address];Es t. Completi on: 03/05/20 14;Print ed: 02/24/20 14 Not Available Not Available Not Available azithromy jered 500 mg tablet TAKE 1 TABLET BY MOUTH DAILY FOR 3 DAYS 03/12 completed Not Available Not Available Not Available nicotine (polacril ex) 4 mg buccal lozenge DISSOLVE 1 LOZENGE BY MOUTH EVERY 2 HOURS IF NEEDED 07/21 completed Not Available Not Available Not Available clobetaso l 0.05 % lotion APPLY A THIN LAYER TO THE AFFECTED AREA(S) BY TOPICAL ROUTE TWO (2) TIMES PER DAY 02/01 completed Not Available Not Available Not Available lactulose 10 gram/15 mL oral solution TAKE 15 ML THREE (3) TIMES A DAY BY ORAL ROUTE DIRECTED FOR FIVE (5) DAYS. 02/01 completed Not Available Not Available Not Available Paxil 1 qd 04/19 completed paxil 20mg;Rec orded Status: Recorded on: 10/20/19 09 10:04AM; Disconti nued Status: Disconti nued on: 04/19/19 11 2:04PM;U ser: [email or web address] anderson;Est. Completi on: 02/17/20 09;Indic ation: - (-5) Not Available Not Available Not Available Tums 04/19 completed Not Available Not Available Not Available Prilosec OTC 01/30 completed Not Available Not Available Not Available varenicli ne tartrate 0.5 mg (11)-1 mg (42) tablets in a dose pack TAKE 0.5 MG EACH MORNING FOR 3 DAYS, THEN 0.5 MG TWICE DAILY FOR 4 DAYS, THEN ONE (1) MG TWICE DAILY FOR 3 WEEKS DIRECTED ON PACKAGE 06/28 completed Not Available Not Available Not Available Durezol 0.05 % eye drops 04/05 completed Not Available Not Available Not Available Besivance 0.6 % eye drops,medhat pension 04/05 completed Not Available Not Available Not Available Chantix Continuin g Month Box 1 mg tablet Take 1 tablet twice a day by oral route for 28 days. 05/19 completed Not Available Not Available Not Available Vitals Date Recorded Body height Body mass index (BMI) Body weight Heart rate Oxygen saturation Oxygen saturation in Arterial blood by Pulse oximetry Respiratory rate Systolic blood pressure Diastolic blood pressure Provider Name and Address Organization Details Last Updated DateTime 5 162.56 cm 24.7 kg/m2 26881.3 g 98 /min 94 % 94 % 18 /min 110 mm[Hg] 78 mm[Hg] Daria Walker [facility] 5 13:39:51 Date Recorded Body height Body mass index (BMI) Body weight Body temperature Heart rate Oxygen saturation Oxygen saturation in Arterial blood by Pulse oximetry Respiratory rate Systolic blood pressure Diastolic blood pressure Provider Name and Address Organization Details Last Updated DateTime 5 162.56 cm 25.2 kg/m2 03511.0 8 g 97.5 [degF] 90 /min 95 % 95 % 18 /min 114 mm[Hg] 76 mm[Hg] Daria Walker [facility] 5 16:14:55 Date Recorded Body height Body mass index (BMI) Body weight Body temperature Heart rate Oxygen saturation Oxygen saturation in Arterial blood by Pulse oximetry Respiratory rate Systolic blood pressure Diastolic blood pressure Provider Name and Address Organization Details Last Updated DateTime 4 162.56 cm 25 kg/m2 28424.9 9 g 98.2 [degF] 94 /min 97 % 97 % 18 /min 100 mm[Hg] 72 mm[Hg] Vincent Mayer MD [address], [place], [address], [place] - [facility] 4 16:49:18 Date Recorded Body height Body mass index (BMI) Body weight Body temperature Heart rate Oxygen saturation Oxygen saturation in Arterial blood by Pulse oximetry Respiratory rate Systolic blood pressure Diastolic blood pressure Provider Name and Address Organization Details Last Updated DateTime 4 162.56 cm 23.5 kg/m2 14562.1 5 g 97.8 [degF] 53 /min 91 % 91 % 18 /min 110 mm[Hg] 76 mm[Hg] Daria Walker [facility] 4 10:03:54 Social History Question Answer Notes LastModified by Organizat ion Details LastModified Time Tobacco Smoking Status Current Every Day Smoker Isabela rosenberg, [place] - [facility] 04/05/2016 10:31:38 Do You Have An Advance Directive? No Information not available 04/05/2016 Are You Blind Or Do You Have Difficulty Seeing? No [email or web address] Information not available 06/02/2020 Is Blood Transfusion Acceptable In An Emergency? Yes Information not available 06/02/2020 What Is Your Level Of Caffeine Consumption? Heavy Information not available 04/05/2016 How Much Tobacco Do You Chew? None Information not available 04/05/2016 In The 14 Days Before Symptom Onset, Have You Had Close Contact With A Laboratory-confir med COVID-19 While That Case Was Ill? No [email or web address] Information not available 03/12/2022 In The 14 Days Before Symptom Onset, Have You Had Close Contact With A Person Who Is Under Investigation For COVID-19 While That Person Was Ill? No [email or web address] Information not available 03/12/2022 Have You Been To An Area Known To Be High Risk For COVID-19? No [email or web address] Information not available 03/12/2022 Are You Deaf Or Do You Have Serious Difficulty Hearing? No [email or web address] Information not available 06/02/2020 What Type Of Diet Are You Following? REGULAR [email or web address] Information not available 06/02/2020 Have You Processed Blood Or Body Fluids From An Ebola Virus Disease Patient Without Appropriate PPE? No [email or web address] Information not available 03/12/2022 Do You Reside In Or Have You Traveled To An Area Where Ebola Virus Transmission Is Active? No [email or web address] Information not available 03/12/2022 What Is The Highest Grade Or Level Of School You Have Completed Or The Highest Degree You Have Received? [id number] [email or web address] Information not available 06/02/2020 How Many Days Of Moderate To Strenuous Exercise, Like A Brisk Walk, Did You Do In The Last 7 Days? 0 Information not available 06/02/2020 On Those Days That You Engage In Moderate To Strenuous Exercise, How Many Minutes, On Average, Do You Exercise? 0 [email or web address] Information not available 06/02/2020 Have There Been Any Changes To Your Family Or Social Situation? No [email or web address] Information no t available 03/12/2022 How Hard Is It For You To Pay For The Very Basics Like Food, Housing, Medical Care, And Heating? Not Very Hard Information not available 03/12/2022 What Is The Fluoride Status Of Your Home? Fluoridated [email or web address] Information not available 03/12/2022 Hard Of Hearing Or Deaf In One Or Both Ears? No Information not available 04/05/2016 Have You Recently Or Are You Planning To Travel To An Area With Zika Virus? No [email or web address] Information not available 03/12/2022 Legally Blind In One Or Both Eyes? No Information no t available 04/05/2016 Live Alone Or With Others? With Others Information not available 04/05/2016 Last Menstrual Period? 10/29/2021 [email or web address] Information not available 03/12/2022 Do You Have A Medical Power Of Welcome Wagon Hostess? No Information not available 03/12/2022 What Was The Date Of Your Most Recent Tobacco Screening? 06/18/2024 Information not available 06/18/2024 How Many Children Do You Have? 4 Information not available 04/05/2016 What Is Your Current Pack Years? 20-29packyears [email or web address] Information not available 03/12/2022 Performs Monthly Self-breast Exam? Yes [email or web address] Information no t available 06/02/2020 Do You Use Protection During Sex? Always [email or web address] Information not available 06/02/2020 Do You Use Protection Against STDs? No [email or web address] Information not available 03/12/2022 What Is Your Relationship Status? Information not available 03/12/2022 Seat Belts Used Routinely Yes Information not available 04/05/2016 Are You Sexually Active? Yes [email or web address] Information not available 06/02/2020 Do You Have Smoke And Carbon Monoxide Detectors In Your Home? Yes [email or web address] Information not available 03/12/2022 At What Age Did You Start Smoking Tobacco? 11 [email or web address] Information not available 06/02/2020 Are You Passively Exposed To Smoke? Yes [email or web address] Information no t available 03/12/2022 How Much Tobacco Do You Smoke? 1 PPD Information not available 04/05/2016 General Stress Level Low Information not available 06/02/2020 Do You Use Sunscreen Routinely? No [email or web address] Information not available 06/02/2020 Has Tobacco Cessation Counseling Been Provided? Yes [email or web address] Information not available 07/22/2023 On What Date Was Tobacco Cessation Counseling Provided? 06/18/2024 Information not available 06/18/2024 How Many Years Have You Smoked Tobacco? 30 Information not available 03/12/2022 Do You Have Difficulty Walking Or Climbing Stairs? No [email or web address] Information not available 06/02/2020 What Contraceptive Method Was Reported At Start Of This Visit? Female Sterilization [email or web address] Information not available 03/12/2022 What Contraceptive Method Was Reported At End Of This Visit? Female Sterilization [email or web address] Information not available 03/12/2022 Do You Want To Talk About Contraception Or Prevention During Your Visit Today? No - I Do Not Want To Talk About Contraception Today Because I Am Here For Something Else Information not available 03/12/2022 How Was The Contraceptive Method Provided? Provided On Site [email or web address] Information no t available 03/12/2022 Do You Have Any Future Plans To Get ? No, I Don't Want To Become [email or web address] Information not available 03/12/2022 Sex: Female Functional Status Question Answer Note LastModified by [employer] ion Details LastModified Time Do you or have you ever used smokeless tobacco? Never used smokeless tobacco [email or web address] Information not available 06/02/2020 Are you currently employed? No Information not available 04/05/2016 Do you have transportation difficulties? No [email or web address] Information not available 03/12/2022 Are you able to care for yourself? Yes Information n ot available 04/05/2016 Do you have difficulty dressing or bathing? No [email or web address] Information not available 06/02/2020 Do you or have you ever used e-cigarettes or vape? Current user of electronic cigarettes [email or web address] Information not available 03/12/2022 What is your exercise level? None Information not available 04/05/2016 Do you use any illicit or recreational drugs? No [email or web address] Information not available 03/12/2022 Do you or have you ever used any other forms of tobacco or nicotine? Yes [email or web address] Information not available 03/12/2022 What is your level of alcohol consumption? Occasional Information not available 04/05/2016 What is your status? Not [email or web address] Information no t available 03/12/2022 Are you able to walk? [email or web address] Information not available 06/02/2020 Do you have difficulty doing errands alone? No [email or web address] Information not available 06/02/2020 Mental Status Question Answer Note LastModified by Organizat ion Details LastModified Time Do you feel stressed (tense, restless, nervous, or anxious, or unable to sleep at night)? [id number] [email or web address] Information not available 06/02/2020 Do you have difficulty concentrating, remembering or making decisions? No Information no t available 06/02/2020 Family History Relationship Description Onset Age of this Age Resolved Age Notes LastModified by Organization Details LastModified Time Mother Congestive heart failure [email or web address] Not available 2016 08:11:25 Mother Essential hypertension [email or web address] Not available 08:11:34 Mother Hypercholest erolemia [email or web address] Not available 2016 08:13:32 Mother Malignant neoplasm of lung [email or web address] Not available 2021 15:28:55 Father Family history of stroke [email or web address] Not available 2016 08:11:57 Father Stented artery [email or web address] Not available 2016 08:12:10 Father Hypercholest erolemia [email or web address] Not available 2016 08:13:32 Paternal Aunt Malignant tumor of breast [email or web address] Not available 2016 08:12:41 Maternal Grandmother Myocardial infarction [email or web address] Not available 04/19 08:13:14 Maternal Aunt Myocardial infarction [email or web address] Not available 04/19 08:13:14 Maternal Grandfather Malignant neoplasm of lung [email or web address] Not available 2016 08:13:53 Medical History Condition Response Pancreatitis N Coronary Artery Disease N Other N Gout N Atrial Fibrillation N congenital heart disease N Blood Diseases N Kidney Stones N Hyperthyroidism N Blood Transfusion N Rheumatoid arthritis N Erectile Dysfunction N amputation N Colonoscopy N Skin Lesions N COPD N Depression N Pneumonia N Incontinence N Murmur N Edema N Alzheimer's Disease N Migraine Headaches N Tobacco Abuse N Anxiety Disorder N Hemorrhoids N Muscle, Joint, or Bone Problems N Obesity N Vision or Eye Problems N Arthritis N Restless Leg Syndrome N Polyps N Infertility N Mental Disorder N Carpal Tunnel N Acid Reflux (GERD) Y Cancer N Varicosities N Stroke N Tendonitis N Crohn's Disease N Hypercholesterolemia N Skin Cancer N Headaches N Fibromyalgia N Anal Fissure N Irritable Bowel Syndrome N Kidney Disease N Heart Problems N Ear or Hearing Problems N Hospitalizations N Gallstones N Kidney or Bladder Problems N Goiter N Acne N Skin Problems N Eating Disorder N Mack's Esophagus N Hypertriglyceridemia N MRSA exposure N Constipation Y Embolism N Vitamin B12 Deficiency N Deviated Septum N Tuberculosis N AIDS/HIV N Myocardial Infarction N Asthma N Mitral Valve Disorders N Vertigo N Hepatitis N Thyroid Cancer N Neuropathy N Pulmonary Embolism N History of DVT N Herniated Disc N Chronic Ear Infections N Chicken Pox N Autism Spectrum Disorder (ASD) N Von Willebrands Disease N Thrombophilias N Breast Cancer N Hernia N Plantar Fasciitis N Hospital Admission Other Than N Lung Disease N Hypothyroidism N Defects or Inherited Disease N Developmental or Behavioral Disorders N Breast Problem N Difficulty Swallowing N Ovarian Cyst N Anesthesia Complications N Testosterone Deficiency N Meniere's disease N Head Injury/Concussion N Interstitial Cystitis N Congenital Anomalies N Hypoglycemia N Blood clot N Vitamin D Deficiency N Cellulitis N Endometriosis N Fracture N Bladder or Kidney Problems N Liver Disease N Panic Disorder N Schizophrenia N Concussion N Spina Bifida N Allergies/Hayfever N Osteoarthritis N Parkinson's Disease N Disc Protrusion N STI N Esophagitis N Angina N Thyroid Problems N GI Problems N ADD/ADHD N Anemia N Multiple Sclerosis N Abnormal PAP N Lumbago N Mental Illness N Psychiatric Illness N Diabetes N Ovarian Cancer N Bedwetting N Degenerative Disc Disease N Seizures/Epilepsy N Congestive Heart Failure (CHF) N Hyperlipidemia N Syncope N Insomnia N Eczema N Abuse/Domestic Violence N Attention Deficient Disorder N Diverticulitis N Dementia N Ulcerative colitis N Cerebrovascular Disease N Depression N Guillain-Harmony N Sleep Apnea N Aneurysm N Bronchitis N Heart Disease N Suicidal Ideation N Pre-Eclampsia N Hypertension N Osteoporosis N Gynecological History Statement/Question Response Abnormal Pap Y Date of Last Mammogram 09/20/2021 Date of LMP 10/15/2023 On BCP's at Conception? N Post Menopausal Bleeding N STIs/STDs N Colposcopy 04/04/2022 HPV Vaccine N Current Control Method Tubal Ligat ion Age at First Child 14 Last Annual Exam/Provider 07-22-23/MAY Sexually Active? Y Date of Last Cervical Culture 03/12/2022 Menses Monthly N Date of Last Pap Smear 07/22/2023 Sexual Problems? N LMP Approximate Desired Control Method Sterilizati on Hormone Replacement Therapy N Obstetrics History GPAL:G 5 P 1 3 0 4 Type Value Full Term 1 Premature 3 Living 4 Total 5 Immunizations Vaccine Type Date Status Note Provider Nam e and Address Organization Details Recorded Time Tdap 6 completed Not Available [facility] 05/01/2019 02:21:37 Influenza, split virus, quadrivalent, preservative 7 completed Not Available [facility] 04/17/2019 03:54:43 Influenza, split virus, trivalent, preservative 4 completed Daria Sullivan null, [place] - [facility] 02/20/2024 14:53:30 COVID-19, mRNA, LNP-S, PF, 100 mcg/0.5mL dose or 50 mcg/0.25mL dose 2 completed Archana Frederick null, [place] - [facility] 07/22/2023 16:21:29 Pneumococcal conjugate PCV20, polysaccharide NPC113 conjugate, adjuvant, PF 2 completed Archana Frederick null, [place] - [facility] 07/22/2023 16:21:29 Influenza, split virus, quadrivalent, PF 2 completed Archana rosenberg, [place] - [facility] 07/22/2023 16:21:29 Tdap 4 completed Avelina Lamas, [employer] [address], [place], [address], [place] - [facility] 07/23/2023 05:21:42 Hep A, adult 4 completed Avelina Lamas, [employer] [address], [place], [address], [place] - [facility] 07/23/2023 05:22:06 Past Encounters Encounter ID Performer Location Encounter Start Date Encounter Closed Date Diagnosis/Indication Diagnosis SNOMED-CT Code Diagnosis ICD10 Code Diagnosis Note [id number] Gregory Elizalde DO [address] [place] [address] 04/05/2016 10:05:22 04/05/2016 11:01:43 Epigastric pain 87026441 R10.13 Start Prilosec 20mg twice daily. [id number] Gregory Elizalde DO [address] [place] [id number] 04/19/2016 07:52:22 04/19/2016 08:44:27 Type B viral hepatitis 53276977 B19.10 [id number] Riddhi Knox MD [address] [place] [id number] 04/25/2016 08:30:39 04/25/2016 09:40:52 Adult health examination 747039340 Z00.00 [id number] Riddhi Knox MD [address] [place] [id number] 01/30/2017 14:56:11 01/30/2017 15:56:54 Influenza vaccine needed 2579407714 106 Z23 Major depr essive disorder 123903735 F32.9 Hyperglycemia 27847921 R 73.9 [id number] Cody Swann MD [address] [place] [id number] 03/06/2017 10:38:42 03/06/2017 11:11:28 Upper respiratory infection 68824431 J06.9 Acute bron chitis with bronchospasm 02536568 J20.9 Pruritic rash 68547173 L 28.2 [id number] Riddhi Knox MD [address] [place] [id number] 04/24/2017 15:36:54 04/24/2017 16:35:48 Adult health examination 161850669 Z00.00 Sinusitis 11317811 J32.9 Hyperlipid emia screening 415779542 Z13.354 [id number] Riddhi Knox MD [address] [place] [id number] 05/14/2017 08:59:46 05/14/2017 09:49:48 Blood glucose outside reference range 429748231 R73.09 Mixed hyperlipidemia 267 568404 E78.2 Tobacco user 714311633 Z 72.0 [id number] Riddhi Knox MD [address] [place] [id number] 09/15/2017 16:51:43 09/15/2017 17:34:12 Pain of multiple joints 29031522 M25.50 Nicotine dependence 5629 4008 F17.200 Lateral epicondylitis 20 3258357 M77.12 Pruritic rash 79274850 L 28.2 [id number] Riddhi Knox MD [address] [place] [id number] 10/13/2017 16:55:14 10/13/2017 17:48:28 Pain of multiple joints 76735842 M25.50 Gastroesop hageal reflux disease without esophagitis 674795656 K21.9 Asthma 103400456 J45.90 9 Nicotine dependence 5629 4008 F17.412 [id number] Karen Durán [employer] [facility] [address] [facility] [facility] [place] [id number] 05/19/2020 14:24:48 05/19/2020 15:15:26 Viral screening 649023993 Z11.52 Body mass index 20-24 - normal 385617667 Z68.22 Streptococ kasey sore throat 95767010 J02.0 [id number] CASSIUS Matt BEHAVIORAL PEDIATRICIAN [address] [place] [address] [place] [id number] 06/02/2020 16:01:47 06/02/2020 16:56:06 Routine gynecologic examination done 5926134440 9101 Z01.419 Examinatio n of blood pressure 168804675 Z01.30 BP goal < 140/90 Depression screening 171 676581 Z13.31 Diet education 17065526 Z71.3 8575-2184 calorie diet recommende d with emphasis on low saturated fat, low carbohydra te, and adequate protein intake. She does not require dietary consult. Counseling 035487441 Z71 .82 Exercise counsellin benji. Patient encouraged to exercise 30 minutes 5 days a week. Screening for malignant neoplasm of cervix 382846911 Z12.4 Z11.51 Z11.8 History of tubal ligation 184700069 Z98.51 Screening mammography 24 069902 Z12.31 Malignant tumor of thyroid gland 263731430 C73 History of hepatitis B 707089152 Z86.19 Body mass index 20-24 - normal 732438070 Z68.23 Venereal d isease screening 834751333 Z11.3 Cigarette smoker 0701811 7 F17.210 Tobacco use discourage d. Techniques for quitting smoking discussed including pharmaceut icals (Nicotine patches, gum, Zyban, and Chantix) and behavioral therapy (Otoniel Almeida). Immediate and terminal computer operator cardiovasc ular and respirator y benefits of smoking cessation discussed. Lung cancer risk reduction also discussed. [id number] CASSIUS Matt BEHAVIORAL PEDIATRICIAN [address] [place] [address] [place] [id number] 03/12/2022 14:53:10 03/12/2022 16:15:31 Routine gynecologic examination done 6629741805 9101 Z01.419 Examinatio n of blood pressure 203018201 Z01.30 BP goal < 140/90 Depression screening 171 445639 Z13.31 Diet education 50614614 Z71.3 5245-0364 calorie diet recommende d with an emphasis on reducing sugar and refined carbohydra [place], avoiding highly processed foods and decreasing saturated fats. She does not require dietary consult. Counseling 736360709 Z71 .82 Exercise counseleric urban Patient encouraged to exercise 30 minutes 5 days a week. Vaccine de clined by patient 6226332821 02 Z28.21 Screening for malignant neoplasm of cervix 683943835 Z12.4 Z11.8 Abnormal u terine bleeding 9662869354 9100 N93.9 Screening for malignant neoplasm of breast 163985929 Z12.39 Body mass index 20-24 - normal 521253279 Z68.23 History of tubal ligation 235838059 Z98.51 History of malignant neoplasm of thyroid 618055808 Z85.850 Cigarette smoker 7519403 7 F17.210 Tobacco use discourage d. Techniques for quitting smoking discussed including pharmaceut icals (Nicotine patches, gum, Zyban, and Chantix) and behavioral therapy (Otoniel Almeida). Immediate and terminal computer operator cardiovasc ular and respirator y benefits of smoking cessation discussed. Lung cancer risk reduction also discussed. [id number] CASSIUS Matt BEHAVIORAL PEDIATRICIAN [address] [place] [address] [place] [id number] 04/04/2022 11:08:39 04/04/2022 12:07:54 High grade squamous intraepithelial lesion on cervical Papanicolaou smear 8870797607 9107 R87.613 R87.810 Malignant tumor of thyroid gland 121008821 C73 [id number] DO Jose E Dorsey BEHAVIORAL PEDIATRICIAN [address] [place] [address] [place] [id number] 04/19/2022 11:43:37 04/19/2022 12:06:06 Pre-surgery evaluation 095773204 Z01.818 High grade squamous intraepithelial lesion on cervical Papanicolaou smear 7441851848 9107 R87.613 Cervical intraepithelial neoplasia grade III with severe dysplasia 642869159 D06.9 Scheduled for [facility] [place] [id number] DO Jose E Dorsey BEHAVIORAL PEDIATRICIAN [address] [place] [address] [place] [id number] 05/02/2022 14:03:40 05/02/2022 14:35:56 Surgical follow-up 005556404 Z09 Cervical intraepithelial neoplasia grade III with severe dysplasia 496594632 D06.9 [id number] DO Leslie [place] BEHAVIORAL PEDIATRICIAN [address] [place] [address] [place] [id number] 05/21/2022 13:57:29 05/21/2022 14:56:25 Surgical follow-up 380648829 Z09 Candidiasis of skin 4988 3006 B37.2 [id number] CASSIUS Matt BEHAVIORAL PEDIATRICIAN [address] [place] [address] [place] [id number] 07/22/2023 16:03:21 07/22/2023 17:13:03 Screening for malignant neoplasm of cervix 024674946 Z12.4 Z11.8 History of tubal ligation 877076121 Z98.51 History of dysplasia of cervix 517578208 Z87.410 JERED 3 in 2021 Dyspareunia 98943142 N94 .10 Menopausal syndrome 1237 07715 N95.9 Cigarette smoker 1487381 7 F17.210 Tobacco use discourage d. Techniques for quitting smoking discussed including pharmaceut icals (Nicotine patches, gum, Zyban, and Chantix) and behavioral therapy (Otoniel Almeida). Immediate and terminal computer operator cardiovasc ular and respirator y benefits of smoking cessation discussed. Lung cancer risk reduction also discussed. History of hepatitis B 051323718 Z86.19 History of malignant neoplasm of thyroid 330643197 Z85.267 [id number] Vincent Mayer MD [address] [address] 10/14/2023 09:10:06 10/14/2023 10:42:44 Abdominal pain 72340095 R10.9 XR showed significan t constipati on [id number] Vincent Mayer MD [address] [place] [address] 10/16/2023 10:36:23 10/16/2023 12:43:15 Menometrorrhagia 923632532 N92.1 [id number] Vincent Mayer MD [address] [place] [address] 11/04/2023 16:42:17 11/04/2023 17:44:28 Abdominal pain 80656746 R10.9 Pt is following with ObGyn at this time; imaging reviewed with Pt; no anatomic abnormalit ies at this time. Will continue to follow closely. [id number] MD Jose E Ortiz BEHAVIORAL PEDIATRICIAN [address] [facility] [place] [id number] 11/13/2023 13:41:41 11/13/2023 14:29:43 History of dysplasia of cervix 723298185 Z87.410 Contact de rmatitis caused by urushiol from [place] 527343752 L25.5 Postmenopa usal bleeding 38818152 N95.0 Screening for malignant neoplasm of colon 633241717 Z12.11 Screening for malignant neoplasm of breast 990400792 Z12.39 [id number] Vincent Mayer MD [address] [address] 12/19/2023 16:23:07 12/31/2023 14:36:58 Pain due to neoplastic disease 6318319745 9102 G89.3 [id number] Vincent Mayer MD [address] [place] [address] 01/02/2024 09:11:10 01/02/2024 10:29:44 Malignant tumor of thyroid gland 088583319 C73 actively following with Onc; chemo regimen to be decided in the next 2 weeks. Pain due t o neoplastic disease 1989264734 9102 G89.3 Long-term drug therapy 207514438 Z79.430 [id number] Vincent Mayer MD [address] [address] 01/12/2024 13:57:05 01/12/2024 15:40:14 Pain due to neoplastic disease 1663394578 9102 G89.3 Chemotherapy 903723445 Z 51.11 [id number] Vincent Mayer MD [address] [place] [address] 02/02/2024 16:30:31 02/04/2024 11:43:12 Chemotherapy 431195748 Z51.11 Pt tolerated well [id number] Vincent Mayer MD [address] [place] [address] 02/20/2024 14:34:57 02/20/2024 14:53:38 Influenza vaccine needed 7720786743 106 Z23 [id number] Vincent Mayer MD [address] [place] [address] 03/04/2024 16:42:19 03/04/2024 17:02:28 Asthma 488422553 J45.909 Pain due t o neoplastic disease 6711451904 9102 G89.3 [id number] Vincent Mayer MD [address] [place] [address] 03/25/2024 09:58:39 03/25/2024 10:35:14 Pain due to neoplastic disease 3496708754 9102 G89.3 Chronic anxiety 95116944 9 F41.9 [id number] Vincent Mayer MD [facility] [address] [place] [address] 05/27/2024 13:32:48 05/27/2024 14:48:25 Chronic back pain 198200123 G89.29 Pain due t o neoplastic disease 4883815411 9102 G89.3 [id number] Vincent Mayer MD [facility] [address] [place] [address] 06/18/2024 16:04:50 06/18/2024 16:45:54 Bronchitis 73094595 J40 Pain due t o neoplastic disease 9719568908 9102 G89.3 refill requested so Pt does not have to return in 4 days Health Concerns Section Related Observation LastModified by Organization Detai ls LastModified Time None Recorded Concern Status LastModified by Organization Details LastModified Time None Recorded Advance Directives Directive N: Payers Insurance Date Sequence Insurance Name Policy Number Policy Bernard Covered Member ID Bernard Member ID Guarantor Name 07/22/2023 1 [employer] [place] (MEDICA[place]PLACEMENT - [place]MO) Latrice Finnegan [id number] Latrice Finnegan 05/19/2020 1 *SELF PAY* Ca kervin Finnegan 04/19/[address] [facility] [id number] Latrice Finnegan [id number] Latrice Finnegan 06/18/2024 1 [place] [id number] Latrice Finnegan [id number] Latrice Finnegan 06/29/2024 1 [facility] Latrice Finnegan [id number] Latrice Finnegan 06/29/[address] 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 Primary is unknown at this time but workup is pending for pulmonary and renal lesions. Pt states next cycle of chemo to start in about a week . Pt following closely with Onc at this time. Pt describes polyarticular pain as dull and grinding, without radiation, constant with a waxing and waning course, worst in low back and knees, associated swelling with knees, relieved by rest, NSAIDs, warmth. Denies recent imaging. KAY reviewed and appropriate. Vincent Mayer MD [address], [place], [address], [facility] 03/25/2024 13:30:14 03/25/2024 text/html Pt presents for f/u opiate therapy for metastatic cancer. Primary is unknown at this time but workup is pending for pulmonary and renal lesions. Pt states next cycle of chemo to start in about a week . Pt following closely with Onc at this time. Pt describes polyarticular pain as dull and grinding, without radiation, constant with a waxing and waning course, worst in low back and knees, associated swelling with knees, relieved by rest, NSAIDs, warmth. Denies recent imaging. KAY reviewed and appropriate. Vincent Mayer MD [address], [place], [address], [facility] 03/25/2024 10:46:47 05/27/2024 text/html Pt presents for f/u opiate therapy for metastatic cancer. Primary is unknown at this time but workup is pending for pulmonary and renal lesions. Pt states next cycle of chemo to start in about a week . Pt following closely with Onc at this time. Pt describes polyarticular pain as dull and grinding, without radiation, constant with a waxing and waning course, worst in low back and knees, associated swelling with knees, relieved by rest, NSAIDs, warmth. Denies recent imaging. KAY reviewed and appropriate. Vincent Mayer MD [address], [place], [address], [facility] 05/27/2024 14:40:14 06/18/2024 text/html Pt presents for 3-5 days of worsening cough (mostly dry, occasionally productive of donald sputum, no hemoptysis), associated congestion and sore throat. Pt endorses subjective fevers and chills, intermittent wheezing and SoB but denies arthralgias, diarrhea, rashes, lymphadenopathy. Pt is not a smoker. States did get Flu and Covid vaccs; endorses multiple sick contacts. Vincent Mayer MD [address], [place], [address], [facility] 06/18/2024 18:36:50 OBGyn Episode No OBEpisode recorded.
--- OUTSIDE RECORDS SUMMARY | 2024-09-07 13:24 | XMS_ITS ---
Author Organization [facility] Address [address] 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 Hepatitis B 01/15/2024 Overview (01/15/2024): not infectious Hearing trouble 01/15/2024 Fractured hand 01/15/2024 Overview (01/15/2024): Left Diverticulitis 01/15/2024 Anemia 01/15/2024 Colon cancer 01/15/2024 Cancer Staging:Clinical stage from 01/15/2024:Stage IIA(cT3, cN0, cM0) - Unsigned Cyst of uterus 01/15/2024 Depression 01/15/2024 Drug abuse 01/15/2024 Cluster headaches 01/15/2024 Postconcussion syndrome 01/25/2023 01/26/20 23 Second hand smoke exposure 03/13/2022 Dysphonia 02/25/2022 Recurrent thyroid cancer 12/10/2021 Chronic viral hepatitis 11/27/20[address] lung nodules on CT 11/23/2021 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 Past Treatment and Therapy Plans Infusion Treatment 1 Plan Name Start Date Discontinue Date Treatment Medications Discontinue Reason Plan Provider THYROTROPIN GEOFFREY (THYROGEN) 11/19/2021 01/15/2024 No medications scheduled. Therapy Complete Austin Rhodes MD Oncology Treatment Plan Name Start Date Discontinue Date Treatment Medications Discontinue Reason Plan Provider Cycles [id number]: Leucovorin + Fluorouracil + OXALIplatin Every 14 Days x 2 Every 28 Days 4 06/23/2024 5-FU (Adrucil) infusion - for home use ([facility] supplied) CADD 100MLfluoroura cil (Adrucil)OXALI platin (Eloxatin) IVPB Therapy Complete Franchesca Delacruz MD 3 of 3 cycles started Lifetime Dose Tracking * Chemical Lifetime Dose Automatic Entry Manual Entr y Fluoro Time 0.053 minutes 0.053 minutes 0 minutes Air Kerma 0.15 mGy 0.15 mGy 0 mGy
--- OUTSIDE RECORDS SUMMARY | 2024-09-07 13:24 | XMS_ITS | Encounter Summary ---
Author Organization Healthcare Address [address] [place] [address] Care Team Providers Care Disbursing Officer Name Role Phone Sergey Oh MD Primary Care Provider [phone] Jean Mak MD Unavailable [phone] Encounter Details Date Type Department Care Team (Late st Contact Info) Description 12/13/2023 Orders Only External Location [address] [place] [address] Provider, External Social History Tobacco Use Types [...] Info) Description 09/23/2024 8:40 AM EDT Appointment [facility] [place] [address] [phone] 09/23/2024 10:00 AM EDT Clinical Support [facility] [address] [facility] [place] [address] [place] [address] 09/23/2024 10:50 AM EDT Office Visit [facility] [address] [place] [address] Moris Valente MD [address] [place], [place] [phone] 09/29/2024 9:40 AM EDT Office Visit [facility] [address] [facility] [place] [address] [place] [address] Danny Coon MD [address] [facility] [address] [place] [address] 09/29/2024 11:30 AM EDT Appointment [facility] [address] [place] [address] 12/23/2024 2:00 PM EDT Office Visit [facility] [address], [address] [place] [phone] Radha Montelongo, CABLE INSPECTOR [address] [facility] [address] [place] [address] documented as of this encounter Procedures Procedure Name Priority Date/Time Associated Diagnosis Comments XR OUTSIDE IMAGES 12/13/2023 9:56 AM EDT documented in this encounter Results * XR OUTSIDE IMAGES (12/13/2023 9:56 AM EDT) Anatomical Region Laterality Modality Radiographic Jeniffer ging 12/13/2023 9:56 AM EDT us External Provider IMG XR PROCEDURES [...] documented as of this encounter Care Teams Disbursing Officer Relationship Specialty Start Date End Date Sergey Oh MD PCP - General 11/13/21 Jean Mak MD [address] [place] [address] [phone] Surgeon Otolaryngology 11/21/21 documented as of this encounter
--- OUTSIDE RECORDS SUMMARY | 2024-09-07 13:24 | XMS_ITS | Encounter Summary ---
Author Organization Healthcare Address [address] [place] [address] Care Team Providers Care Timber Buyer Name Role Phone Sergey Oh MD Primary Care Provider [phone] Jean Mak MD Unavailable [phone] Reason for Visit * Reason Comments Med Refill Encounter Details Date Type Department Care Team (Late st Contact Info) Description 05/12/2024 Refill [facility] [address] [place] [address] Danny Coon MD [facility] [address] [address] Social History Tobacco Use Types Packs/Day Years Used Date Smoking Tobacco: Every Day Cigarettes 1 32 Started: 03/31/1994 Passive Smoke Exposure: Current Smokeless Tobacco: Never Comments:Vaping Alcohol Use Standard Drinks/Week Comments Yes 2 (1 standard drink = 0.6 oz pur e alcohol) Occasional PHQ-2 Answer Date Recorded Patient Health Questionnaire-2 Score 0 01/19/2024 PHQ-9 Answer Date Recorded Patient Health Questionnaire-9 Score 0 01/15/2024 PHQ-2A Answer Date Recorded Patient Health Questionnaire-2 [...] on file documented as of this encounter Miscellaneous Notes * Telephone Encounter - Archana Vargas RN - 05/12/2024 3:51 PM EST Patient needs appointment with Dr Coon. documented in this encounter Plan of Treatment Upcoming Encounters Date Type Department Care Team ([facility] Contact Info) Description 09/23/2024 8:40 AM EDT Appointment [facility] [place] [address] [address] 09/23/2024 10:00 AM EDT Clinical Support [facility] [address] [address] 09/23/2024 10:50 AM EDT Office Visit [facility] [address] [place] [phone] Moris Valente MD [address] [place] [address] 09/29/2024 9:40 AM EDT Office Visit [facility] [address] [phone] Danny Coon MD [address] [facility] [address] [place] [address] 09/29/2024 11:30 AM EDT Appointment [facility] Radiology [address] [place] [address] 12/23/2024 2:00 PM EDT Office Visit [place] [facility] [address], [address] [place] [address] [place] [address] Radha Montelongo D, MERCHANDISE COORDINATOR [address] [place] [address] documented as of this encounter Visit Diagnoses Not on filedocumented in this encounter Additional Health Concerns Assessment Noted Time PHQ-9 Depression Total Score: 0 01/15/20 8:53 AM EDT A fall risk assessment has been complete d for the patient 04/17/2024 11:15 AM EST A Body Mass Index follow-up plan has been documented for the patient 01/22/2024 3:29 PM EDT documented as of this encounter Care Teams Timber Buyer Relationship Specialty Start Date End Date Sergey Oh MD PCP - General 11/13/21 Jean Mak MD [address] [facility] Cancer [address] [phone] Surgeon Otolaryngology 11/21/21 documented as of this encounter
--- OUTSIDE RECORDS SUMMARY | 2024-09-07 13:24 | XMS_ITS | Encounter Summary ---
Author Organization Healthcare Address [address] [place] [address] Care Team Providers Care Carbon Sequestration Plant Engineer Name Role Phone Pcp, No Primary Care Provider Sergey Oswald MD Primary Care Provider [phone] Jean Mak MD Unavailable [phone] Encounter Details Date Type Department Care Team (Late st Contact Info) Description 08/09/2021 Orders Only External Location [address] [place] [address] Provider, External Social History Tobacco Use Types Packs/Day Years Used Date Smoking Tobacco: Never Assessed Comments Unknown Sex and Gender Information Value Date Recorded Sex Assigned at Female 02/19/2022 3:22 PM EST Legal Sex Female 8:15 PM EDT Gender Identity Female 02/19/2022 3:22 PM EST Sexual Orientation Straight 02/19/2022 3: 22 PM EST documented as of this encounter Plan of Treatment Upcoming Encounters Date Type Department Care Team (Late Contact Info) Description 09/23/2024 8:40 AM EDT Appointment [facility] [address] [place] [address] 09/23/2024 10:00 AM EDT Clinical Support [facility] [address] [facility] 2nd [place] [address] 09/23/2024 10:50 AM EDT Office Visit [facility] [address] [place] [address] Moris Valente MD [address] [place] [address] 09/29/2024 9:40 AM EDT Office Visit [facility] [address] [facility], [address] [place] [address] Danny Coon MD [address] [place] [address] 09/29/2024 11:30 AM EDT Appointment [facility] [address] [place] [phone] 12/23/2024 2:00 PM EDT Office Visit [facility] [address] [place] [address] Radha Montelongo D, MANAGER TAX [address] [facility] [address] [place] [phone] documented as of this encounter Procedures Procedure Name Priority Date/Time Associated Diagnosis Comments US OUTSIDE IMAGES 08/09/2021 3:14 PM EDT documented in this encounter Results * US OUTSIDE IMAGES (08/09/2021 3:14 PM EDT) Anatomical Region Laterality Modality Ultrasound 08/09/2021 3:14 PM EDT us External Provider IMG US PROCEDURES Final Result documented in this encounter Visit Diagnoses Not on filedocumented in this encounter Care Teams Carbon Sequestration Plant Engineer Relationship Specialty Start Date End Date Pcp, No [address] [place] [address] PCP - General Family Medicine 03/31/21 11/12/21 Sergey Oh MD [address] [place] [address] PCP - General 11/13/21 Jean Mak MD [address] [facility] [address] [place] [address] Surgeon Otolaryngology 11/21/21 documented as of this encounter
--- OUTSIDE RECORDS SUMMARY | 2024-09-07 13:24 | XMS_ITS | Clinical Summary ---
Author Organization [facility] Address [address] [place] [address] Care Team Providers Care Traffic Control Flagger Name Role Phone Sergey Oh MD Primary Care Provider [phone] Jean Mak MD Unavailable [phone] Allergies No known active allergies Medications albuterol 108 (90 Base) MCG/ACT inhaler INHALE 2 PUFFS BY MOUTH FOUR TIMES DAILY NEEDED FOR SHORTNESS OF BREATH OR WHEEZING 09/19/19 24 Active HYDROcodone-acetam inophen ([place]) 7.5-325 MG tablet TAKE ONE (1) TABLET THREE (3) TIMES A DAY BY ORAL ROUTE AFTER MEAL(S) FOR 30 DAYS. Active ergocalciferol (Drisdol) 1.25 MG (48821 UT) capsule Take 1 capsule (50,000 Units) by mouth 1 (one) time per week. 12 capsule 3 02/04/20 24 Active OLANZapine zydis (ZyPREXA ZYDIS) 5 MG disintegrating tablet Take 1 tablet (5 mg) by mouth every night. 30 tablet 02/19/20 24 Active cyclobenzaprine (Flexeril) 10 MG tablet Take 1 tablet (10 mg) by mouth 3 (three) times a day if needed for muscle spasms. Active hydrOXYzine HCl (Atarax) 50 MG tablet Take by mouth. Activ e tenofovir disoproxil fumarate (Viread) 300 MG tabletIndications: Chronic viral hepatitis B without delta agent and without coma (CMS/HCC) Take 1 tablet (300 mg) by mouth daily. 30 tablet 11 06/22/19 25 026 Active ipratropium-albute rol (Duo-Neb) 0.5-2.5 mg/3 mL nebulizer solution Inhale 3 mL 4 times a day by nebulization route as directed for 30 days. 06/19/19 25 Active ketorolac (Toradol) 10 MG tablet TAKE ONE (1) TABLET FOUR (4) TIMES A DAY BY ORAL ROUTE AFTER MEAL(S) FOR FIVE (5) DAYS. Active levothyroxine (Synthroid, Levoxyl) 125 MCG tablet Take 1 tablet by mouth daily. 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); Multiple lung nodules on CT; Post-surgical hypothyroidism; Vitamin D deficiency 06/30/2024 3:15 PM EDT Clinical Support [facility] [address] [phone] 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 Results Follow-Up [facility] [address] [phone] Danny Coon MD 06/30/2024 Results Follow-Up [facility] [address] [phone] Danny Coon MD 06/30/2024 Travel 06/24/2024 10:20 AM EDT Office Visit [facility] [address] [place] [address] Moris Valente MD Malignant neoplasm of sigmoid colon (CMS/HCC) (Primary Dx) 06/24/2024 7:59 AM EDT - 06/24/2024 11:59 PM EDT Hospital Encounter [facility] [address] [place] [phone] Malignant neoplasm of sigmoid colon (CMS/HCC); Multiple lung nodules on CT; Papillary microcarcinoma of thyroid (CMS/HCC) Discharge Disposition: Home or Self Care 06/24/2024 Travel 06/22/2024 Results Follow-Up [facility] [address], [address] [place] [address] Radha Montelongo APRN 06/21/2024 2:00 PM EDT Office Visit [facility] [address], [address] [place] [address] Radha Montelongo, CORD CUTTER Chronic viral hepatitis B without delta agent and without coma (CMS/HCC) (Primary Dx); Cirrhosis of liver without ascites, unspecified hepatic cirrhosis type (CMS/HCC) 06/21/2024 Travel from Last 3 Months Immunizations Immunization Administration Dates Next Due Hep A, Adult 05/21/2023 Influenza, injectable, quadrivalent 01/30/2017 Influenza, injectable, quadrivalent, preservativ e free 11/16/2021 Influenza, seasonal, injectable 02/20/2024 Pneumococcal 20-cosme Conj Vaccine 11/16/2021 Tdap 06/29/2015,02/23/2014 Family History Medical History Relation Name Comments Hypercholesterolemia Father Brian Serrano Hypertension Father Brian Serrano Thyroid disease Father Brian Serrano Hypercholesterolemia Mother Zara Cárdenas Hypertension Mother Zara Cárdenas Lung cancer Mother Zara Cárdenas Malig Hyperthermia Neg Hx Thyroid cancer Neg Hx Relation Name Status Comments Father Brian Serrnao Mother Zara Cárdenas Social History Tobacco Use Types Packs/Day Years Used Date Smoking Tobacco: Every Day Cigarettes 1 32 Started: 03/31/1994 Passive Smoke Exposure: Current Smokeless Tobacco: Never Tobacco Cessation:Ready to Q uit: Yes; Counseling Given: Yes Comments:Vaping Alcohol Use Standard Drinks/Week Comments Yes 2 (1 standard drink = 0.6 oz pur e alcohol) Occasional PHQ-2 Answer Date Recorded Patient Health Questionnaire-2 Score 0 06/21/2024 PHQ-9 Answer Date Recorded Patient Health Questionnaire-9 Score 0 06/21/2024 PHQ-2A Answer Date Recorded Patient Health Questionnaire-2 [...] file Not on file Not on file Last Filed Vital Signs Vital Sign Reading Time Taken Comments Blood Pressure 101/70 06/30/2024 2:55 PM EDT Pulse 86 06/30/2024 2:55 PM EDT Temperature 36.8 C (98.2 F) 06/30/2024 2:55 PM EDT Respiratory Rate 16 06/30/2024 2:55 PM EDT Oxygen Saturation 94% 06/30/2024 2:55 PM EDT Inhaled Oxygen Concentration - - Weight 66.9 kg (147 lb 7.8 oz) 06/30/2024 2:55 P M EDT Height 157.5 cm (5' 2 ) 06/30/2024 2:55 PM EDT Body Mass Index 26.98 06/30/2024 2:55 PM EDT Plan of Treatment Upcoming Encounters Date Type Department Care Team ([facility] st Contact Info) Description 09/23/2024 8:40 AM EDT [facility]ointment [facility], [address] [place] [phone] 09/23/2024 10:00 AM EDT Clinical Support [facility] [address] [phone] 09/23/2024 10:50 AM EDT Office Visit [facility] 800 [place] [address] Moris Valente MD 800 [place] [address] 09/29/2024 9:40 AM EDT Office Visit [facility] [address] [phone] Danny Coon MD [address] [place] [phone] 09/29/2024 11:30 AM EDT Appointment [facility] [address] [place] [phone] 12/23/2024 2:00 PM EDT [facility] Visit [facility] [address], [address] [place] [address] Radha Montelongo D, CORD CUTTER [address] [place] [phone] Health Maintenance Due Date Last Done Comments [facility]-HIV Screening 1978 [facility]-Infant/Child/Adol SDOH Screenings 1978 [facility]- SDOH Screenings 1996 [facility]-Adult SDOH Screenings 1996 [facility]-Hepatitis B Vaccines (1 of 3 - 19+ 3-dose series) 1997 06/21/2024, 06/21/2024, 02/16/2024, Additional history exists [facility]-Zoster Vaccines (1 of 2) 1997 [facility]-Pap Smear 1999 [facility]-Cervical Cancer Screening 2008 [facility]-HPV/Cotest 2008 [id number] Vaccine (2 - Moderna risk series) 12/14/2021 11/16/2021 CT Colonography 2023 Colonoscopy 2023 FIT-DNA 2023 FIT 2023 FOBT 2023 Sigmoidoscopy 2023 [facility]-Colorectal Cancer Screening 2023 [facility]-Hepatitis A Vaccines (2 of 2 - Risk 2-dose series) 11/19/2023 05/21/2023 [facility]-Depression Screening 06/21/2025 025, 06/21/2024, 01/08/2022 [facility]-DTaP,Tdap,and Td Vaccines (3 - Td or Tdap) 06/28/2025 06/29/2015, 02/23/2014 [facility]-Hepatitis C Screening Completed 11/02/2021 [facility]-Pneumococcal Vaccine: Pediatrics (0 to 5 Years) and At-Risk Patients (6 to 49 Years) Completed 11/16/2021 [facility]-Influenza Vaccine Completed 02/20/2024 , 11/16/2021, 01/30/2017 [facility]-Obesity Intervention Completed 025, 01/19/2024, 09/04/2023, Additional history exists HPV Vaccines Aged Out No longer eligi ble based on patient's age to complete this topic [facility]-HIB Vaccines Aged Out No longer e ligible based on patient's age to complete this topic [facility]-IPV Vaccines Aged Out No longer e ligible based on patient's age to complete this topic [facility]-Rotavirus Vaccines Aged Out No lo nger eligible based on patient's age to complete this topic Medical Devices Implanted Type Area Carbon Brushes Assembler Device Identifier Shelf Expiration Date Model / Serial / Lot Port Clearvue Power 8fr - [id number] Implanted:Qt y: 1 on 01/22/2024 by lCay in, Whitney Smith MD at [facility] Catheter Right: Subclavian [employer]-[id number] MEDIPORT 05/28/2025 [id number] / / [id number] Procedures Procedure Name Priority Date/Time Associated Diagnosis Comments THYROGLOBULIN (INHOUSE- REFLEX ONLY) Routine 06/30/2024 3:08 PM EDT Papillary microcarcinoma of thyroid (CMS/HCC) THYROGLOBULIN ANTIBODY AND THYROGLOBULIN (MARIA TERESA OR LC-MSMS) Routine 06/30/2024 3:08 PM EDT Papillary microcarcinoma of thyroid (CMS/HCC) TSH Routine 06/30/2024 3:08 PM EDT Papillary microcarcinoma of thyroid (CMS/HCC) FREE T4, PLASMA Routine 06/30/2024 3:08 PM EDT Papillary microcarcinoma of thyroid (CMS/HCC) CT ABDOMEN PELVIS W IV CONTRAST Routine 06/24/2024 9:02 AM EDT Malignant neoplasm of sigmoid colon (CMS/HCC) Multiple lung nodules on CT Papillary microcarcinoma of thyroid (CMS/HCC) CT CHEST W IV CONTRAST Routine 06/24/2024 9:02 AM EDT Malignant neoplasm of sigmoid colon (CMS/HCC) Multiple lung nodules on CT Papillary microcarcinoma of thyroid (CMS/HCC) COMPREHENSIVE METABOLIC PANEL, PLASMA Routine 06/21/2024 2:49 PM EDT Chronic viral hepatitis B without delta agent and without coma (CMS/HCC) CBC W/O DIFFERENTIAL Routine 06/21/2024 2:49 PM EDT Chronic viral hepatitis B without delta agent and without coma (CMS/HCC) PROTHROMBIN TIME(PT) / INR Routine 06/21/2024 2:49 PM EDT Chronic viral hepatitis B without delta agent and without coma (CMS/HCC) ALPHA FETOPROTEIN, SERUM Routine 06/21/2024 2:49 PM EDT Chronic viral hepatitis B without delta agent and without coma (CMS/HCC) HEPATITIS B SURFACE ANTIGEN Routine 06/21/2024 2:49 PM EDT Chronic viral hepatitis B without delta agent and without coma (CMS/HCC) HEPATITIS B VIRUS (HBV) QUANTITATIVE PCR Routine 06/21/2024 2:49 PM EDT Chronic viral hepatitis B without delta agent and without coma (CMS/HCC) HEPATITIS BE VIRUS ANTIBODY (SO) Routine 06/21/2024 2:49 PM EDT Chronic viral hepatitis B without delta agent and without coma (CMS/HCC) HEPATITIS BE VIRUS ANTIGEN (SO) Routine 06/21/2024 2:49 PM EDT Chronic viral hepatitis B without delta agent and without coma (CMS/HCC) HEPATITIS B SURFACE ANTIBODY, QUANTITATIVE Routine 06/21/2024 2:49 PM EDT Chronic viral hepatitis B without delta agent and without coma (CMS/HCC) ACUTE HEPATITIS PANEL Routine 11/02/2021 2:42 PM EDT Thyroid cancer (CMS/HCC) from Last 3 Months or Most Recently Relevant to Health Maintenance Results * Thyroglobulin Antibody and Thyroglobulin (MARIA TERESA or LC-MSMS) (06/30/2024 3:08 PM EDT) Thyroglobulin Antibody <1.0 <4.0 IU/mL 06/30/2024 5:[address] [facility] Blood Venous blood specimen / Unknown Venipuncture / Unknown 06/30/2024 3:08 PM EDT 06/30/2024 3:24 PM EDT us Danny Coon MD LAB BLOOD ORDERABLES Final Resu lt Performing Organization Address [facility]/[place] [address] * Thyroglobulin (06/30/2024 3:08 PM EDT) Thyroglobulin (Inhouse) 0.2 <=31.8 ng/mL 06/30/2024 5:[address] [facility] Blood Venous blood specimen / Unknown Venipuncture / Unknown 06/30/2024 3:08 PM EDT 06/30/2024 3:[address] [facility] - 06/30/2024 5:59 PM EDT Performed by [employer] [place] 2nd generation TG chemiluminescent immunoassay. Results obtained with different test methods or kits cannot be used interchangeably. us Danny Coon MD LAB BLOOD ORDERABLES Final Resu lt Performing Organization Address [facility]/ZIP Co de Phone Number [facility] [address] [place] [address] * (ABNORMAL) Thyroid Stimulating Hormone, Plasma (06/30/2024 3:08 PM EDT) Thyroid Stimulating Hormone, Plasma 0.06(L) 0.40 - 4.20 uIU/mL 06/30/2024 4:[address] [facility] Blood Venous blood specimen / Unknown Venipuncture / Unknown 06/30/2024 3:08 PM EDT 06/30/2024 3:[address] [facility] - 06/30/2024 4:01 PM EDT Trimester Specific Ranges TSH ( IU/mL) 1st Trimester 0.1 - 3.0 2nd Trimester 0.19 - 4.06 3rd Trimester 0.3 - 3.7 us Danny Coon MD LAB BLOOD ORDERABLES Final Resu lt Performing Organization Address [facility] [place] [address] * Free T4, Plasma (06/30/2024 3:08 PM EDT) Free T4, Plasma 1.6 0.8 - 1.7 ng/dL 06/30/2024 4:01 PM EDT [facility] Blood Venous blood specimen / Unknown Venipuncture / Unknown 06/30/2024 3:08 PM EDT 06/30/2024 3:24 PM EDT Narrative [facility] - 06/30/2024 4:01 PM EDT Free T4 Trimester Specific Ranges 1st Trimester 0.9 - 1.50 ng/dL 2nd Trimester 0.7 - 1.40 ng/dL 3rd Trimester 0.7 - 1.24 ng/dL us Danny Coon MD LAB BLOOD ORDERABLES Final Resu lt Performing Organization Address [facility] [place] [address] * CT Abdomen Pelvis w IV Contrast (06/24/2024 9:02 AM EDT) Anatomical Region Laterality Modality Abdomen, Pelvis Computed Tomogra phy Impressions 06/24/2024 9:53 AM EDT Presumed post procedural changes along the right lobe of the liver. No evidence of metastatic disease within the abdomen or pelvis CRITICAL RESULT: No. COMMUNICATION: Per this written report. Drafted by Porter Ha MD on 06/24/2024 9:46 AM Final report signed by Porter Ha MD on 06/24/2024 9:53 AM Narrative 06/24/2024 9:53 AM EDT CLINICAL INDICATION: colon cancer thyroid cancer TECHNIQUE: Multiple axial CT images were obtained from lung bases through pubic symphysis following administration of IV contrast, Omnipaque 300, 100 mL. Delayed images of abdomen and kidneys were also obtained. Reformatted images in the coronal and sagittal planes were generated from the axial data set to facilitate diagnostic accuracy. Total DLP (Dose-Length Product): 382.51 mGy.cm. Please note: The reported value represents the total of one or more individual components during the CT acquisition on this date and at this time, and as such, the same value may appear in more than one CT report depending on the interpreting/reporting physicians. COMPARISON: Outside CT from January 25, 2024 FINDINGS: Lower Chest: Please see separate report Solid Abdominal Organs: Contour deformity along the right peripheral liver with presumed surgical clips consistent with prior wedge resection (series 3 image 33). No discrete liver lesion is detected. Absent gallbladder. Unremarkable pancreas. Unremarkable spleen. Unremarkable adrenal glands. No hydronephrosis. No suspicious renal mass. Small left renal cyst is noted. GI Tract/Mesentery/Peritoneum: Large and small bowel appear normal in caliber. Sigmoid anastomosis is noted. No obvious recurrent mass at the anastomosis. No mesenteric mass. Pelvic Viscera: Unremarkable urinary bladder. Unremarkable uterus and ovaries. Lymph Nodes/Vasculature: Aortoiliac vasculature is normal in caliber. Mild atherosclerotic changes are present. No lymphadenopathy. Free Fluid: No ascites Musculoskeletal and Body Wall: No clearly aggressive bone lesions. Diastasis of rectus abdominis with broad-based herniation of fat within the epigastric region (series 3 image 85). Procedure Note Porter Ha MD - 06/24/2024 CLINICAL INDICATION: colon cancer thyroid cancer TECHNIQUE: Multiple axial CT images were obtained from lung bases through pubicsymphysis following administration of IV contrast, Omnipaque 300, 100 mL.Delayed images of abdomen and kidneys were also obtained. Reformattedimages in the coronal and sagittal planes were generated from the axialdata set to facilitate diagnostic accuracy. Total DLP (Dose-Length Product): 382.51 mGy.cm. Please note: The reportedvalue represents the total of one or more individual components during theCT acquisition on this date and at this time, and as such, the same valuemay appear in more than one CT report depending on theinterpreting/reporting physicians. COMPARISON: Outside CT from January 25, 2024 FINDINGS: Lower Chest: Please see separate report Solid Abdominal Organs: Contour deformity along the right peripheral liverwith presumed surgical clips consistent with prior wedge resection (series3 image 33). No discrete liver lesion is detected. Absent gallbladder.Unremarkable pancreas. Unremarkable spleen. Unremarkable adrenal glands.No hydronephrosis. No suspicious renal mass. Small left renal cyst isnoted. GI Tract/Mesentery/Peritoneum: Large and small bowel appear normal incaliber. Sigmoid anastomosis is noted. No obvious recurrent mass at theanastomosis. No mesenteric mass. Pelvic Viscera: Unremarkable urinary bladder. Unremarkable uterus andovaries. Lymph Nodes/Vasculature: Aortoiliac vasculature is normal in caliber. Mildatherosclerotic changes are present. No lymphadenopathy. Free Fluid: No ascites Musculoskeletal and Body Wall: No clearly aggressive bone lesions.Diastasis of rectus abdominis with broad-based herniation of fat withinthe epigastric region (series 3 image 85). IMPRESSION: Presumed post procedural changes along the right lobe of the liver. Noevidence of metastatic disease within the abdomen or pelvis CRITICAL RESULT: No. COMMUNICATION: Per this written report. Drafted by Porter Ha MD on 06/24/2024 9:46 AM Final report signed by Porter Ha MD on 06/24/2024 9:53 AM Broderick Taylor MD IMG CT PROCEDURES Final Resu lt * CT Chest w IV Contrast (06/24/2024 9:02 AM EDT) Anatomical Region Laterality Modality Chest Computed Tomogra phy Impressions 06/24/2024 10:29 AM EDT New tiny right lower lobe nodule and marginal increase in size of precarinal lymph node. Short-term Follow-up CT chest in 3 months recommended. CRITICAL RESULT: No. COMMUNICATION: Per this written report. Drafted by Georgi Ortiz MD on 06/24/2024 10:21 AM Final report signed by Georgi Ortiz MD on 06/24/2024 10:29 AM Narrative 06/24/2024 10:29 AM EDT CLINICAL INDICATION: thyroid cancer colon cancer TECHNIQUE: Multiple CT helical images were obtained from thoracic inlet through upper abdomen with administration of IV contrast. 90 mL of Omnipaque-300 were administered intravenously. Total DLP (Dose-Length Product): 382.51 mGy.cm. Please note: The reported value represents the total of one or more individual components during the CT acquisition on this date and at this time, and as such, the same value may appear in more than one CT report depending on the interpreting/reporting physicians. COMPARISON: 03/18/2024 FINDINGS: Mediastinum and Pleura: Stable or marginal increase in size of the mediastinal and right hilar lymph nodes. For instance, there is a 0.9 cm precarinal lymph node, previously 0.7 cm and a 0.9 cm right hilar lymph node which is stable. No pleural effusion. Moderate coronary artery calcification. Lungs: Moderate centrilobular emphysema. Mild diffuse bronchial wall thickening. There is a new tiny 3 mm right lower lobe nodule adjacent to the fissure (series 2 image 75). There are few tiny nodules that are stable such as a 5 mm right lower lobe nodule (series 2 image 81) and additional tiny right lung base nodule (series 2 image 89). Some mucous plugging in the left lower lobe. Small to debris in the distal trachea is concerning for aspiration. Upper Abdomen: Please see separate report for findings of the concurrently performed abdominal CT. Musculoskeletal: No suspicious lytic or sclerotic lesion. Procedure Note Georgi Ortiz MD - 06/24/2024 CLINICAL INDICATION: thyroid cancer colon cancer TECHNIQUE: Multiple CT helical images were obtained from thoracic inlet through upperabdomen with administration of IV contrast. 90 mL of Omnipaque-300 wereadministered intravenously. Total DLP (Dose-Length Product): 382.51 mGy.cm. Please note: The reportedvalue represents the total of one or more individual components during theCT acquisition on this date and at this time, and as such, the same valuemay appear in more than one CT report depending on theinterpreting/reporting physicians. COMPARISON: 03/18/2024 FINDINGS: Mediastinum and Pleura: Stable or marginal increase in size of themediastinal and right hilar lymph nodes. For instance, there is a 0.9 cmprecarinal lymph node, previously 0.7 cm and a 0.9 cm right hilar lymphnode which is stable. No pleural effusion. Moderate coronary arterycalcification. Lungs: Moderate centrilobular emphysema. Mild diffuse bronchial wallthickening. There is a new tiny 3 mm right lower lobe nodule adjacent tothe fissure (series 2 image 75). There are few tiny nodules that arestable such as a 5 mm right lower lobe nodule (series 2 image 81) andadditional tiny right lung base nodule (series 2 image 89). Some mucousplugging in the left lower lobe. Small to debris in the distal trachea isconcerning for aspiration. Upper Abdomen: Please see separate report for findings of the concurrentlyperformed abdominal CT. Musculoskeletal: No suspicious lytic or sclerotic lesion. IMPRESSION: New tiny right lower lobe nodule and marginal increase in size ofprecarinal lymph node. Short-term Follow-up CT chest in 3 monthsrecommended. CRITICAL RESULT: No. COMMUNICATION: Per this written report. Drafted by Georgi Ortiz MD on 06/24/2024 10:21 AM Final report signed by Georgi Ortiz MD on 06/24/2024 10:29 AM Broderick Taylor MD IMG CT PROCEDURES Final Resu lt * Hepatitis B Surface Antibody, Quantitative (06/21/2024 2:49 PM EDT) [facility] Hepatitis B Surface Antibody, Quantitative <8.00 NonReactiv e: <8, Grayzone: 8 - <12, Reactive: >= 12 mIU/mL 06/21/2024 6:[address] [facility] Comment: Nonreactive. Individual is considered not immune to HBV infection. Blood Venous blood specimen / Unknown Venipuncture / Unknown 06/21/2024 2:49 PM EDT 06/21/2024 2:49 PM EDT Radha Montelongo CORD CUTTER LAB BLOOD ORDERABLES Final Result [facility] [address] [place] [address] * Alpha Fetoprotein, Serum (06/21/2024 2:49 PM EDT) Alpha Fetoprotein, Serum <2.3 <10.0 ng/mL 06/21/2024 5:[address] [facility] Blood Venous blood specimen / Unknown Venipuncture / Unknown 06/21/2024 2:49 PM EDT 06/21/2024 2:[address] [facility] - 06/21/2024 5:34 PM EDT Performed by [employer] electrochemiluminescent immunoassay which is traceable to the [address] [place] [address] IRP WHO Reference standard 72/255. Results obtained with different test methods or kits cannot be used interchangeably. [employer] LAB BLOOD ORDERABLES Final Result Performing Organization Address [facility] [place] [address] * Hepatitis B Virus (HBV) Quantitative PCR (06/21/2024 2:49 PM EDT) [facility] Hepatitis B Virus (HBV) Quantitative Interpretation Not Detected Not Detected 06/24/2024 5:05 AM EDT [facility] Blood Venous blood specimen / Unknown Venipuncture / Unknown 06/21/2024 2:49 PM EDT 06/21/2024 2:[address] [facility] - 06/24/2024 5:05 AM EDT The [employer] M2000 HBV Assay is a Real Time in vitro nucleic acid amplification of Hepatitis B Virus (HBV) DNA in human serum in HBV infected individuals. It is intended to quantify HBV in patients who are infected with this virus. The dynamic range for this test is 1.0 to 9.0 log10 and/or 10 to 1,000,000,000 IU/mL. The limit of detection (LOD) for this assay is 10 IU/mL. This assay is FDA approved for clinical use. us Radha D Jayda CORD CUTTER LAB BLOOD ORDERABLES Final Result Performing Organization Address [facility] [place] [address] * (ABNORMAL) Hepatitis B e antibody (06/21/2024 2:49 PM EDT) [facility] Hepatitis Be Antibody Positive(A ) Negative 06/23/2024 10:54 PM EDT [facility] ([facility]) Blood Venous blood specimen / Unknown Venipuncture / Unknown 06/21/2024 2:49 PM EDT 06/21/2024 2:49 PM EDT Narrative [facility] (DEA) - 06/23/2024 10:54 PM EDT The anti-HBe is reactive, which is consistent with recent or remote hepatitis B infection. Anti-HBe can be present in a small proportion of chronic HBV infections, but its presence usually indicates resolution. If HBeAg is also positive, this may represent the transition between the appearance of anti-HBe and decline of HBeAg and retesting in a month may be useful. Performed By: [employer] [address] [place] [address] Electronic Imaging System Operator: Jose Gan MD, PhD CLIA Number: [id number] Radha Montelongo [facility] BLOOD ORDERABLES Final Result Performing Organization Address [facility] Co de Phone Number [facility]) [address] [place] [address] * Hepatitis B e antigen (06/21/2024 2:49 PM EDT) [facility] Hepatitis Be Antigen Negative Negative 06/23/2024 10:56 PM EDT [facility] (DEA) Blood Venous blood specimen / Unknown Venipuncture / Unknown 06/21/2024 2:49 PM EDT 06/21/2024 2:49 PM EDT Narrative [facility] ([facility]A) - 06/23/2024 10:56 PM EDT Performed By: [employer] [address] [place] [address] Electronic Imaging System Operator: Jose Gan MD, PhD CLIA Number: [id number] Radha Jesus Montelongo [facility] BLOOD ORDERABLES Final Result Performing Organization Address City/[facility]/ZIP Co de Phone Number [facility]) [address] [place] [address] * (ABNORMAL) Hepatitis B Surface Antigen (06/21/2024 2:49 PM EDT) Hepatitis B Surf Antigen Positive(A ) Negative 06/22/2024 10:[address] [facility] Blood Venous blood specimen / Unknown Venipuncture / Unknown 06/21/2024 2:49 PM EDT 06/21/2024 2:49 PM EDT us Rdaha Gilesrel [facility] BLOOD ORDERABLES Final Result Performing Organization Address City/[facility]/ZIP Co de Phone Number [facility] [address] [place] [address] * Prothrombin Time/INR (06/21/2024 2:49 PM EDT) Prothrombin Time 12.9 12.0 - 14.3 sec LAB COAGULATION METHOD 06/21/2024 4:[address] [facility] INR 1.0 0.9 - 1.1 LAB COAGULATION METHOD 06/21/2024 4:[address] [facility] Blood Venous blood specimen / Unknown Venipuncture / Unknown 06/21/2024 2:49 PM EDT 06/21/2024 2:[address] [facility] - 06/21/2024 4:20 PM EDT OPTIMAL INR RANGES FOR PATIENT ON ORAL ANTICOAGULANT THERAPY Prevention of venous thromboembolism INR 2.0 to 3.0 In patients with heart disease: Atrial fibrillation INR 2.0 to 3.0 Valvular heart disease INR 2.0 to 3.0 Tissue heart valves INR 2.0 to 3.0 Mechanical prosthetic valves INR 2.5 to 3.5 Prevention of recurrent AZ INR 2.5 to 3.5 us Radha Gilesrel [facility] BLOOD ORDERABLES Final Result Performing Organization Address City/[facility]/ZIP Co de Phone Number [facility] [address] [place] [address] * (ABNORMAL) CBC W/O Differential (06/21/2024 2:49 PM EDT) WBC Count 6.38 3.70 - 10.30 10*3/uL LAB HEMATOLOGY METHOD 06/21/2024 4:[address] [facility] RBC Count 4.87 3.90 - 5.20 10*6/uL LAB HEMATOLOGY METHOD 06/21/2024 4:[address] [facility] HGB 14.3 11.2 - 15.7 g/dL LAB HEMATOLOGY METHOD 06/21/2024 4:[address] [facility] HCT 44.8 34.0 - 45.0 % LAB HEMATOLOGY METHOD 06/21/2024 4:[address] [facility] Platelet Count 253 155 - 369 10*3/uL LAB HEMATOLOGY METHOD 06/21/2024 4:[address] [facility] MCV 92 79 - 98 fL LAB HEMATOLOGY METHOD 06/21/2024 4:[address] [facility] MCH 29.4 26.0 - 32.0 pg LAB HEMATOLOGY METHOD 06/21/2024 4:[address] [facility] MCHC 31.9 30.7 - 35.5 g/dL LAB HEMATOLOGY METHOD 06/21/2024 4:[address] [facility] RDW 16.9(H) 11.5 - 14.5 % LAB HEMATOLOGY METHOD 06/21/2024 4:[address] [facility] MPV 10.0 8.8 - 12.5 fL LAB HEMATOLOGY METHOD 06/21/2024 4:[address] [facility] nRBC 0.0 <=0.0 per 100 WBCs LAB HEMATOLOGY METHOD 06/21/2024 4:[address] [facility] Blood Venous blood specimen / Unknown Venipuncture / Unknown 06/21/2024 2:49 PM EDT 06/21/2024 2:49 PM EDT us Radha Montelongo APRN LAB BLOOD ORDERABLES Final Result [facility] [address] [place] [address] * (ABNORMAL) Comprehensive Metabolic Panel, Plasma (06/21/2024 2:49 PM EDT) Pathologist [facility] Glucose, Plasma 78 74 - 99 mg/dL 06/21/2024 4:[address] [facility] BUN, Plasma 15 7 - 21 mg/dL 06/21/2024 4:[address] [facility] Creatinine, Plasma 0.76 0.60 - 1.10 mg/dL 06/21/2024 4:[address] [facility] BUN/Creatinine Ratio 20 06/21/2024 4:[address] [facility] Sodium, Plasma 140 136 - 145 mmol/L 06/21/2024 4:[address] [facility] Potassium, Plasma 4.2 3.6 - 4.9 mmol/L 06/21/2024 4:[address] [facility] Chloride, Plasma 99 97 - 107 mmol/L 06/21/2024 4:[address] [facility] CO2, Plasma 27 22 - 29 mmol/L 06/21/2024 4:[address] [facility] Anion Gap 14 6 - 16 mmol/L 06/21/2024 4:[address] [facility] Total Calcium, Plasma 9.7 8.9 - 10.2 mg/dL 06/21/2024 4:[address] [facility] Total Protein 7.8 6.3 - 7.9 g/dL 06/21/2024 4:[address] [facility] Albumin, Plasma 4.3 3.5 - 5.2 g/dL 06/21/2024 4:[address] [facility] AST, Plasma 38(H) 10 - 35 U/L 06/21/2024 4:[address] [facility] Comment:Hemolyzed, result ma y be falsely increased. ALT, Plasma 33 10 - 35 U/L 06/21/2024 4:[address] [facility] Alkaline Phosphatase, Plasma 148(H) 35 - 104 U/L 06/21/2024 4:[address] [facility] Total Bilirubin, Plasma <0.2(L) 0.2 - 1.1 mg/dL 06/21/2024 4:[address] [facility] eGFRcr 98.0 mL/min/1.7 3m*2 06/21/2024 4:[address] [facility] Comment:Reported eGFRcr in m L/min/1.73m2 is based the CKD-EPI 2020 equation that does not use a race coefficient. Blood Venous blood specimen / Unknown Venipuncture / Unknown 06/21/2024 2:49 PM EDT 06/21/2024 2:49 PM EDT Radha Montelongo APRN LAB BLOOD ORDERABLES Final Result Performing Organization Address [facility] Co de Phone Number [facility] [address] [place] [address] * (ABNORMAL) Hepatitis panel, acute (11/02/2021 2:42 PM EDT) Hepatitis B Surf Antigen Positive(A) Negative 11/02/2021 6:08 PM EDT [facility] Hepatitis C Antibody Negative Negative 11/02/2021 6:08 PM EDT [facility] Hepatitis A Antibody IgM Negative Negative 11/02/2021 6:08 PM EDT [facility] Hepatitis B Core Antibody IgM Negative Negative 11/02/2021 6:08 PM EDT [facility] Blood Venous blood specimen / Unknown Venipuncture / Unknown 11/02/2021 2:42 PM EDT 11/02/2021 2:50 PM EDT Jean Mak MD LAB BLOOD ORDERABLES Final R esult Performing Organization Address City/[facility] Co de Phone Number [facility] [address] [place] [address] from Last 3 Months or Most Recently Relevant to Health Maintenance Insurance [facility] MEDICA[facility] Advance Directives * Full Code (Latest Code Status on File) Date Activated Date Inactivated Comments 12/10/2021 3:22 PM 12/11/2021 9:56 PM Question Answer Comments Patient has decision-making capacity? Yes Care Teams Traffic Control Flagger Relationship Specialty Start Date End Date Sergey Oh MD PCP - General 11/13/21 Jean Mak MD 800 [facility] [address] [address] Surgeon Otolaryngology 11/21/21
--- OUTSIDE RECORDS SUMMARY | 2024-09-07 13:24 | XMS_ITS | Encounter Summary ---
Author Organization Healthcare Address [address] [place] [address] Care Team Providers Care Postage Machine Operator Name Role Phone Pcp, No Primary Care Provider Sergey Oswald MD Primary Care Provider [phone] Jean Mka MD Unavailable [phone] Encounter Details Date Type Department Care Team (Late st Contact Info) Description 10/13/2018 Orders Only External Location [address] [place] [address] Provider, External Social History Tobacco [...] Info) Description 09/23/2024 8:40 AM EDT Appointment [facility] [address] [place] [address] 09/23/2024 10:00 AM EDT Clinical Support [facility] 800 [facility] 2nd [place] [address] 09/23/2024 10:50 AM EDT Office Visit [facility] [address] [place] [address] Moris Valente MD 800 [place] [address] 09/29/2024 9:40 AM EDT Office Visit [facility] 800 [facility], 2nd [place] [phone] Danny Coon MD [address] [place] [phone] 09/29/2024 11:30 AM EDT Appointment [facility] Radiology [address] [place] [address] 12/23/2024 2:00 PM EDT Office Visit [place] [facility] [address]nd [place] [phone] Radha Montelongo, ROOFING PLANT SUPERVISOR [address] [facility] [address] [place] [phone] documented as of this encounter Procedures Procedure Name Priority Date/Time Associated Diagnosis Comments XR THORACIC OUTSIDE IMAGES 10/13/2018 11:01 PM EDT documented in this encounter Results * XR THORACIC OUTSIDE IMAGES (10/13/2018 11:01 PM EDT) Anatomical Region Laterality Modality Radiographic Jeniffer ging 10/13/2018 11:0 1 PM EDT us External Provider IMG XR PROCEDURES Final Result documented in this encounter Visit Diagnoses Not on filedocumented in this encounter Care Teams Postage Machine Operator Relationship Specialty Start Date End Date Pcp, No [address] [place] [address] PCP - General Family Medicine 03/31/21 11/12/21 Sergey Oh MD 800 [place], [place] [phone] PCP - General 11/13/21 Jean Mak MD 800 [facility] [address] [place] [phone] Surgeon Otolaryngology 11/21/21 documented as of this encounter
--- OUTSIDE RECORDS SUMMARY | 2024-09-07 13:24 | XMS_ITS | Encounter Summary ---
Author Organization Healthcare Address [address] [place] [address] Care Team Providers Care Barber Name Role Phone Sergey Oh MD Primary Care Provider [phone] Jean Mak MD Unavailable [phone] Encounter Details Date Type Department Care Team (Late st Contact Info) Description 01/08/2024 Lab Requisition [facility] 800 [place] [address] Broderick Taylor MD [address] [address] Polyp of colon Social History Tobacco Use Types Packs/Day Years [...] Upcoming Encounters Date Type Department Care Team ([facility] Contact Info) Description 09/23/2024 8:40 AM EDT Appointment [facility] [address] [place] [address] 09/23/2024 10:00 AM EDT Clinical Support [facility] [address] [place] [phone] 09/23/2024 10:50 AM EDT Office Visit [facility] [address] [place] [phone] Moris Valente MD 800 [place] [address] 09/29/2024 9:40 AM EDT Office Visit [facility] 800 [facility] [address]nd [place] [phone] Danny Coon MD [address] [facility] [address] [place] [phone] 09/29/2024 11:30 AM EDT Appointment [facility] Radiology [address] [place] [phone] 12/23/2024 2:00 PM EDT Office Visit [place] [facility] [address], [address]nd [place] [phone] Radha Montelongo, BUILDING MAINTENANCE CUSTODIAN [address] [facility] [address] [place] [phone] documented as of this encounter Procedures Procedure Name Priority Date/Time Associated Diagnosis Comments SURGICAL PATHOLOGY CONSULT Routine 01/08/2024 10:42 AM EDT Polyp of colon documented in this encounter Results * Surgical Pathology Consult (01/08/2024 10:42 AM EDT) Case Report Sugical Pathology Consult Case: [id number] Authorizing Provider: Broderick Taylor MD Collected: 01/08/20241041 Ordering Location: [facility] Received: 01/08/20241041 Pathologist: Dimas Becker DO Specimen: Sigmoid Colon, [id number] 1:22 PM EDT [facility] Final Diagnosis OUTSIDE SLIDES; [id number], A-C; 12/12/23 A. COLON, POLYP AT 25 CM, BIOPSY: - TUBULAR ADENOMA. B. COLON, DESIGNATED FLAT POLYP AT 25 CM, BIOPSY: - COLONIC MUCOSA WITH LYMPHOID AGGREGATE. C. LARGE INTESTINE, SIGMOID COLON, RESECTION: - ADENOCARCINOMA, MODERATELY TO POORLY DIFFERENTIATED, AJCC: pT3N0. - EXTRAMURAL LARGE VESSEL (VENOUS) INVASION IDENTIFIED. - TUMOR BUDDING PRESENT (REPORTED HIGH, >10). - MACROSCOPIC TUMOR PERFORATION NOT IDENTIFIED (PER REPORT). - MARGINS NEGATIVE FOR INVASIVE TUMOR. - TUMOR FOCUS PRESENT WITHIN LARGE VESSEL IN MESENTERIC MARGIN. - TWENTY-ONE LYMPH NODES NEGATIVE FOR METASTATIC CARCINOMA (0/21). - TUMOR ASSOCIATED WITH MURAL ABSCESS. MMR BY IHC (PER REPORT): - INTACT NUCLEAR EXPRESSION OF ALL FOUR PROTEINS (MLH1, PMS2, MSH2 AND MSH6). 1:22 PM EDT [facility] at 1321 EDT Clinical Information K63.5 - Polyp of colon [ICD-10-CM] 1:22 PM EDT [facility] Special and Immunohistochemical Stains Special Stain: A2-1 Elastic Trichrome IHC: A2-2 CDX-2: Positive in tumor cells. A3-1 CK7: Focal/rare positive cells. A3-2 CK20: Positive in tumor cells. A3-3 CDX-2: Positive in tumor cells. A3-4 SATB2: Positive in tumor cells. A3-5 PAX8: Negative in tumor cells. A3-6 TTF-1: Negative in tumor cells. All controls show appropriate reactivity. All immunohistochemis try, in situ hybridization, and histochemical tests were developed by and are performed at the [facility], [address] [place] [address]. All tests reported here, except those addressing HER2 (breast) and PD-L1 expression as predictive markers, have not been cleared by or approved by the US Food and Drug Administration (FDA). The FDA has determined that such clearance or approval is not necessary. The laboratory is regulated under CLIA as qualified to perform high-complexity testing. The tests are used for clinical purposes. They should not be regarded as investigational or for research. This assay has not been validated on decalcified tissues. Results should be interpreted with caution given the likelihood of false negativity on decalcified specimens. 1:22 PM EDT [facility] Gross Description A. [id number] Received along with a corresponding pathology report from [facility] ([place]) are 47 slide(s) labeled outside case: [id number] collected on 12/12/23. Also received 2 blocks as noted per Dr. Becker on 01/15/2024. 1:22 PM EDT [facility] Intradepartmental Consultation with Agreement Dr. Palmer (vascular invasion, staging and mesenteric margin). 1:22 PM EDT [facility] Note: A resident was involved in the service. I attest I examined the relevant preparations for the specimens and confirmed the diagnosis or interpretation. 1:22 PM EDT [facility] Tissue Sigmoid colon structure / Unknown 01/08/2024 10:42 AM EDT 01/08/2024 10:42 AM EDT us Broderick Taylor MD LAB PATHOLOGY [place] [address] documented in this encounter Visit Diagnoses Diagnosis Polyp of colon Benign neoplasm of colon documented in this encounter Additional Health Concerns Assessment Noted Time PHQ-9 Depression Total Score: 11 022 9:07 AM EDT A fall risk assessment has been complete d for the patient 10/29/2023 12:12 PM EDT A Body Mass Index follow-up plan has been documented for the patient 09/10/2023 11:55 AM EDT documented as of this encounter Care Teams Barber Relationship Specialty Start Date End Date Sergey hO MD PCP - General 11/13/21 Jean Mak MD 800 [facility] [address] [address] Surgeon Otolaryngology 11/21/21 documented as of this encounter
--- OUTSIDE RECORDS SUMMARY | 2024-09-07 13:24 | XMS_ITS | Encounter Summary ---
Author Organization Healthcare Address [address] [place] [address] Care Team Providers Care Logistics Engineer Name Role Phone Pcp, No Primary Care Provider Sergey Oswald MD Primary Care Provider [phone] Jean Mak MD Unavailable [phone] Encounter Details Date Type Department Care Team (Late st Contact Info) Description 06/06/2016 Orders Only External Location 800 [place] [address] Provider, External Social History Tobacco [...] Info) Description 09/23/2024 8:40 AM EDT Appointment [facility] [address] [place] [address] 09/23/2024 10:00 AM EDT Clinical Support [facility] 800 [facility] 2nd [place] [address] 09/23/2024 10:50 AM EDT Office Visit [facility] [address] [place] [address] Moris Valente MD 800 [place] [address] 09/29/2024 9:40 AM EDT Office Visit [facility] 800 [facility], 2nd [place] [phone] Danny Coon MD [address] [place] [phone] 09/29/2024 11:30 AM EDT Appointment [facility] Rad[facility] [address] [place] [phone] 12/23/2024 2:00 PM EDT Office Visit [place] [facility] [address], [address] [place] [phone] Radha Montelongo D, SWEAT BAND SEPARATOR [address] [facility] [address] [place] [phone] documented as of this encounter Procedures Procedure Name Priority Date/Time Associated Diagnosis Comments XR OUTSIDE IMAGES 06/06/2016 11:19 PM EST documented in this encounter Results * XR OUTSIDE IMAGES (06/06/2016 11:19 PM EST) Anatomical Region Laterality Modality Radiographic Jeniffer ging 06/06/2016 11:1 9 PM EST us External Provider IMG XR PROCEDURES Final Result documented in this encounter Visit Diagnoses Not on filedocumented in this encounter Care Teams Logistics Engineer Relationship Specialty Start Date End Date Pcp, No 800 [place] [address] PCP - General Family Medicine 03/31/21 11/12/21 Sergey Oh MD 800 [place], [place] [phone] PCP - General 11/13/21 Jean Mak MD 800 [facility] 2nd [place] [address] Surgeon Otolaryngology 11/21/21 documented as of this encounter
--- OUTSIDE RECORDS SUMMARY | 2024-09-07 13:24 | XMS_ITS | Encounter Summary ---
Author Organization Healthcare Address [address] [place] [address] Care Team Providers Care Sewage Plant Attendant Name Role Phone Pcp, No Primary Care Provider Sergey Oswald MD Primary Care Provider [phone] Jean Mak MD Unavailable [phone] Encounter Details Date Type Department Care Team (Late st Contact Info) Description 08/11/2020 Orders Only External Location 800 [place] [address] Provider, External Social History Tobacco [...] Info) Description 09/23/2024 8:40 AM EDT Appointment [facility] [address]nd [place] [address] 09/23/2024 10:00 AM EDT Clinical Support Pav [facility] 800 [facility] 2nd [place] [address] 09/23/2024 10:50 AM EDT Office Visit [facility] [address] [place] [address] Moris Valente MD 800 [place] [address] 09/29/2024 9:40 AM EDT Office Visit [facility] 800 [facility], 2nd [place] [phone] Danny Coon MD [address] [place] [address] 09/29/2024 11:30 AM EDT Appointment [facility] [address] [place] [phone] 12/23/2024 2:00 PM EDT Office Visit [place] [facility] [address] [place] [phone] Radha Montelongo D, SALES SERVICE COORDINATOR [address] [facility] [address] [place] [phone] documented as of this encounter Procedures Procedure Name Priority Date/Time Associated Diagnosis Comments CT NEURO OUTSIDE IMAGES 08/11/2020 10:22 PM EDT documented in this encounter Results * CT NEURO OUTSIDE IMAGES (08/11/2020 10:22 PM EDT) Anatomical Region Laterality Modality Computed Tomogra phy 08/11/2020 10:2 2 PM EDT us External Provider IMG CT PROCEDURES Final Result documented in this encounter Visit Diagnoses Not on filedocumented in this encounter Care Teams Sewage Plant Attendant Relationship Specialty Start Date End Date Pcp, No 800 [place] [address] PCP - General Family Medicine 03/31/21 11/12/21 Sergey Oh MD 800 [place] [address] PCP - General 11/13/21 Jean Mak MD 800 [facility] [address] [phone] Surgeon Otolaryngology 11/21/21 documented as of this encounter
--- OUTSIDE RECORDS SUMMARY | 2024-09-07 13:24 | XMS_ITS | Encounter Summary ---
Author Organization Healthcare Address [address] [place] [address] Care Team Providers Care Reconditioner Name Role Phone Sergey Oh MD Primary Care Provider [phone] Jean Mak MD Unavailable [phone] Encounter Details Date Type Department Care Team (Late st Contact Info) Description 12/06/2023 Orders Only External Location 800 [place] [address] Provider, External Social History Tobacco Use Types [...] Info) Description 09/23/2024 8:[address] [facility] [address] [phone] 09/23/2024 10:00 AM EDT Clinical Support Pav [facility] 800 [facility] [address]nd [place] [phone] 09/23/2024 10:50 AM EDT Office Visit [facility] 800 [place] [phone] Moris Valente MD 800 [place], [place] [phone] 09/29/2024 9:40 AM EDT Office Visit [facility] [address] [facility] [address] [place] [phone] Danny Coon MD [address] [facility] [address] [place] [phone] 09/29/2024 11:30 AM EDT Appointment [facility] [address] [place] [phone] 12/23/2024 2:00 PM EDT Office Visit [place] [facility] [address], [address]nd [place] [phone] Radha Montelongo, BUSINESS INTEGRATION ANALYST [address] [facility] [address] [place] [phone] documented as of this encounter Procedures Procedure Name Priority Date/Time Associated Diagnosis Comments XR ABDOMEN OUTSIDE IMAGES 12/06/2023 2:57 PM EDT documented in this encounter Results * XR ABDOMEN OUTSIDE IMAGES (12/06/2023 2:57 PM EDT) Anatomical Region Laterality Modality Radiographic Jeniffer ging 12/06/2023 2:57 PM EDT us External Provider IMG XR [...] documented as of this encounter Care Teams Reconditioner Relationship Specialty Start Date End Date Sergey Oh MD PCP - General 11/13/21 Jean Mak MD [address] [place] [address] [address] Surgeon Otolaryngology 11/21/21 documented as of this encounter
--- OUTSIDE RECORDS SUMMARY | 2024-09-07 13:24 | XMS_ITS | Clinical Summary ---
Author Organization [facility] DIAG X R Address [address] [place] [address] [place] [address] Phone Care Team Providers Care Portable Track Crew Chief Name Role Phone Riddhi Knox Dia Primary Care Provider [phone] Allergies No known active allergies Medications albuterol (PROVENTIL) 2.5 mg /3 mL (0.083 %) Inhl Solution for Nebulization INHALE 3ML VIA NEBULIZER EVERY SIX HOURS Active albuterol (PROVENTIL HFA;VENTOLIN HFA) 90 mcg/actuation Inhl HFA Aerosol Inhaler INHALE 2 PUFFS BY MOUTH FOUR TIMES DAILY NEEDED FOR SHORTNESS OF BREATH OR WHEEZING Active LEVOthyroxine (SYNTHROID) 112 mcg Oral Tablet Take 125 mcg by mouth daily. 4 Active tenofovir disoproxil fumarate (VIREAD) 300 mg Oral Tablet Take 1 Tablet by mouth daily. 4 Active calcium carbonate/vitamin D3 (VITAMIN D-3 ORAL) Take 25 mcg by mouth daily. Active CALCIUM-MAGNESIUM -ZINC ORAL Take 2 Tablets by mouth daily. Active BLACK COHOSH ORAL Take 540 mg by mouth daily. 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 Post-surgical hypothyroidism 10/23/2019 Malignant neoplasm of thyroid gland 09/22/2019 Surgical History Surgery Date Site/Laterality Comments CHOLECYSTECTOMY SECTION TONSILLECTOMY KNEE SURGERY Right TUBAL LIGATION CERVIX SURGERY conization UPPER GASTROINTESTINAL ENDOSCOPY Medical History Medical History Date Comments Cancer (HCC) 2019 thyroid with met s to neck lymph nodes Cirrhosis of liver (HCC) Hepatitis B COPD (chronic obstructive pu lmonary disease) (HCC) Arthritis neck and hands Thyroid disease Family History Medical History Relation Name Comments High Cholesterol Father Hypertension Father Stroke Father Cancer Mother lung Heart Disease Mother chf High Cholesterol Mother Hypertension Mother Anesth Problems Neg Hx Relation Name Status Comments Father Mother Social History Tobacco Use Types Packs/Day Years Used Date Smoking Tobacco: Every Day Cigarettes 1 34.4 Started: 03/31/1990 Smokeless Tobacco: Never Alcohol Use Standard Drinks/Week Comments Yes 0 (1 standard drink = 0.6 oz pur e alcohol) special occasions Sexually Active Control Partners Comments Yes Post-menopausal Male Comments No Sex and Gender Information Value Date Recorded Sex Assigned at Not on file Legal Sex Female 9:01 PM EDT Gender Identity Not on file Sexual Orientation Not on file Obstetrics History Para Term AB IAB SAB Ectopic Multiple Livin g Live Births 5 4 1 3 1 1 4 4 Date Outcome GA Total Labor Labor/2nd/3rd Weight Sex Type Anes PTL Michelle A1 A5 Name Clin SAB Term Vag-S pont Living Vag-S pont Living Vag-S pont Living CSP Living Last Filed Vital Signs Vital Sign Reading Time Taken Comments Blood Pressure 104/60 12/04/2023 8:33 AM EDT Pulse 70 11/27/2023 12:55 PM EDT Temperature 36.6 C (97.8 F) 11/27/2023 12:55 PM EDT Respiratory Rate 16 11/27/2023 12:55 PM EDT Oxygen Saturation 99% 11/27/2023 12:55 PM EDT Inhaled Oxygen Concentration - - Weight 65.8 kg (145 lb) 12/04/2023 8:33 AM EDT Height 162.6 cm (5' 4 ) 12/04/2023 8:33 AM EDT Body Mass Index 24.89 12/04/2023 8:33 AM EDT Plan of Treatment Health Maintenance Due Date Last Done Comments Annual Wellness Exam 1981 Hepatitis B Vaccine (1 of 3 - 19+ 3-dose series) 1997 Cervical Cancer Screening 1999 Pap Smear 1999 HPV/Pap Cotest 2008 Breast Cancer Screening 2018 Cologuard 2023 Colon Cancer Screening 2023 Colonoscopy 2023 FIT 2023 Sigmoidoscopy 2023 Virtual Colonography 2023 Hepatitis A Vaccine (2 of 2 - Risk 2-dose series) 11/19/2023 05/21/2023 COVID-19 Vaccine (2 - 2023-2 5 season) 2023 11/16/2021 Influenza Vaccine (Season Ended) 2024 11/16/2021, 01/30/2017 DTaP/TDaP/Td (3 - Td or Tdap) 06/28/2025, 02/23/2014 Pneumococcal Vaccine 0-49 Completed 11/16/2021 Meningococcal B Vaccine Aged Out No l onger eligible based on patient's age to complete this topic Insurance [address] [place] [address] [place] [facility] [address] [place] [address] MEDICAID Care Teams Portable Track Crew Chief Relationship Specialty Start Date End Date Riddhi Knox [address] [place] [id number] PCP - General Fine Arts Model 03/01/13
--- OUTSIDE RECORDS SUMMARY | 2024-09-07 13:24 | XMS_ITS | Encounter Summary ---
Author Organization Healthcare Address [address] [place] [address] Care Team Providers Care Rhythmic Gymnastics Coach Name Role Phone Sergey Oh MD Primary Care Provider [phone] Jean Mak MD Unavailable [phone] Encounter Details Date Type Department Care Team (Late st Contact Info) Description 06/22/2024 Results Follow-Up [facility] Medicine Specialties [address], [address] [place] [address] Radha Montelongo D, PERIODONTIST [address] [place] [address] Social History Tobacco Use Types Packs/Day Years [...] Upcoming Encounters Date Type Department Care Team ([facility] st Contact Info) Description 09/23/2024 8:40 AM EDT Appointment [facility] [address] [address] 09/23/2024 10:00 AM EDT Clinical Support [facility] Res[facility] [address] [address] 09/23/2024 10:50 AM EDT Office Visit [facility] [address] [place] [address] Moris Valente MD 800 [place] [address] 09/29/2024 9:40 AM EDT Office Visit [facility] Res[facility] [address] [phone] Danny Coon MD 2[address] [facility] 125 [place] [address] 09/29/2024 11:30 AM EDT Appointment [facility] A Radiology [address] [place] [address] 12/23/2024 2:00 PM EDT Office Visit [facility] Medicine [facility] [address] [facility] 2nd [facility] [place] [address] Radha Montelongo, PERIODONTIST [address] [facility] [address] [place] [address] documented as of this encounter Visit Diagnoses Not on filedocumented in this encounter Additional Health Concerns Assessment Noted Time PHQ-9 Depression Total Score: 0 06/22/19 25 1:53 PM EDT A fall risk assessment has been complete d for the patient 06/21/2024 1:54 PM EDT A Body Mass Index follow-up plan has been documented for the patient 06/23/2024 9:55 AM EDT documented as of this encounter Care Teams Rhythmic Gymnastics Coach Relationship Specialty Start Date End Date Sergey Oh MD PCP - General 11/13/21 Jean Mak MD 800 [facility] Cancer [address] [address] Surgeon Otolaryngology 11/21/21 documented as of this encounter
--- OUTSIDE RECORDS SUMMARY | 2024-09-07 13:24 | XMS_ITS | Encounter Summary ---
Author Organization Healthcare Address [address] [place] [address] Care Team Providers Care Supervisor Fusing Room Name Role Phone Sergey Oh MD Primary Care Provider [phone] Jean Mak MD Unavailable [phone] Encounter Details Date Type Department Care Team (Late st Contact Info) Description 12/06/2023 Orders Only External Location [address] [place] [address] Daryl Pina MD [address] [place] [address] Social History Tobacco Use Types Packs/Day Years [...] Upcoming Encounters Date Type Department Care Team ([facility] st Contact Info) Description 09/23/2024 8:40 AM EDT Appointment [facility] [address] [place] [address] 09/23/2024 10:00 AM EDT Clinical Support [facility] Res[facility] [address] [phone] 09/23/2024 10:50 AM EDT Office Visit [facility] [address] [place] [phone] Moris Valente MD 800 [place] [address] 09/29/2024 9:40 AM EDT Office Visit [facility] Respiratory 800 [facility] 2nd [place] [address] Danny Coon MD [address] [place] [address] 09/29/2024 11:30 AM EDT Appointment [facility] A Radiology [address] [place] [address] 12/23/2024 2:00 PM EDT Office Visit [facility] Medicine Specialties [address] [place] [address] Radha Montelongo, ADJUNCT WRITING INSTRUCTOR [address] [facility] [address] [place] [phone] documented as of this encounter Procedures Procedure Name Priority Date/Time Associated Diagnosis Comments CT OUTSIDE IMAGES 12/06/2023 6:42 PM EDT documented in this encounter Results * CT OUTSIDE IMAGES (12/06/2023 6:42 PM EDT) Anatomical Region Laterality Modality Computed Tomogra phy 12/06/2023 6:42 PM EDT Daryl Pian MD IMG CT PROCEDURES Final Res ult documented in this encounter Visit Diagnoses Not [...] documented as of this encounter Care Teams Supervisor Fusing Room Relationship Specialty Start Date End Date Sergey Oh MD PCP - General 11/13/21 Jean Mak MD 800 [facility] Cancer [address] [phone] Surgeon Otolaryngology 11/21/21 documented as of this encounter
--- OUTSIDE RECORDS SUMMARY | 2024-09-07 13:24 | XMS_ITS | Encounter Summary ---
Author Organization Healthcare Address [address] [place] [address] Care Team Providers Care Extrusion Process Operator Name Role Phone Pcp, No Primary Care Provider Sergey Oswald MD Primary Care Provider [phone] Jean Mak MD Unavailable [phone] Encounter Details Date Type Department Care Team (Late st Contact Info) Description 06/30/2020 Orders Only External Location 800 [place] [address] Provider, External Social History Tobacco [...] Info) Description 09/23/2024 8:40 AM EDT Appointment [facility] [address]nd [place] [address] 09/23/2024 10:00 AM EDT Clinical Support Pav [facility] Head[facility] Neck & Respiratory 800 [facility] 2nd [place] [address] 09/23/2024 10:50 AM EDT Office Visit [facility] 800 [place] [address] Moris Vaelnte MD 800 [place] [address] 09/29/2024 9:40 AM EDT Office Visit Pav [facility] Neck [facility] Respiratory 800 [facility], 2nd [place] [address] Danny Coon MD [address] [place] [address] 09/29/2024 11:30 AM EDT Appointment [facility] A Radiology [address] [place] [address] 12/23/2024 2:00 PM EDT Office Visit [facility] Medicine Specialties [address], [address] [place] [address] Radha Montelongo, NO EXPERIENCE [address] [facility] [address] [place] [phone] documented as of this encounter Procedures Procedure Name Priority Date/Time Associated Diagnosis Comments MAMMOGRAPHY OUTSIDE IMAGES 06/30/2020 1:31 PM EDT documented in this encounter Results * MAMMOGRAPHY OUTSIDE IMAGES (06/30/2020 1:31 PM EDT) Anatomical Region Laterality Modality Breast Mammography 06/30/2020 1:31 PM EDT External Provider IMG BI PROCEDURES Final Result documented in this encounter Visit Diagnoses Not on filedocumented in this encounter Care Teams Extrusion Process Operator Relationship Specialty Start Date End Date Pcp, No 800 [place] [address] PCP - General Family Medicine 03/31/21 11/12/21 Sergey Oh MD 800 [place] [address] PCP - General 11/13/21 Jean Mak MD 800 [facility] [address] [place] [phone] Surgeon Otolaryngology 11/21/21 documented as of this encounter
--- OUTSIDE RECORDS SUMMARY | 2024-09-07 13:24 | XMS_ITS | Encounter Summary ---
Author Organization Healthcare Address [address] [place] [address] Care Team Providers Care Air Bag Curer Name Role Phone Pcp, No Primary Care Provider Sergey Oswald MD Primary Care Provider [phone] Jean Mak MD Unavailable [phone] Encounter Details Date Type Department Care Team (Late st Contact Info) Description 07/05/2020 Orders Only External Location 800 [place] [address] Provider, External Social History Tobacco [...] Info) Description 09/23/2024 8:40 AM EDT Appointment [facility] [address]nd [place] [address] 09/23/2024 10:00 AM EDT Clinical Support Pav [facility] Head[facility] Respiratory 800 [facility] 2nd [place] [address] 09/23/2024 10:50 AM EDT Office Visit [facility] 800 [place] [address] Moris Valente MD 800 [place] [address] 09/29/2024 9:40 AM EDT Office Visit Pav [facility] Head[facility] Neck & Respiratory 800 [facility], 2nd [place] [address] Danny Coon MD [address] [place] [address] 09/29/2024 11:30 AM EDT Appointment [facility] A Radiology [address] [place] [address] 12/23/2024 2:00 PM EDT Office Visit [place] [facility] Medicine Specialties [address], [address]nd [place] [address] Radha Montelongo, DIRECTOR OF CARDIAC CATH LAB [address] [facility] [address] [place] [address] documented as of this encounter Procedures Procedure Name Priority Date/Time Associated Diagnosis Comments US BREAST OUTSIDE IMAGES 07/05/2020 1:11 PM EDT documented in this encounter Results * US BREAST OUTSIDE IMAGES (07/05/2020 1:11 PM EDT) Anatomical Region Laterality Modality Breast Mammography 07/05/2020 1:11 PM EDT us External Provider IMG BI PROCEDURES Final Result documented in this encounter Visit Diagnoses Not on filedocumented in this encounter Care Teams Air Bag Curer Relationship Specialty Start Date End Date Pcp, No 800 [place] [address] PCP - General Family Medicine 03/31/21 11/12/21 Sergey Oh MD 800 [place], [place] [phone] PCP - General 11/13/21 Jean Mak MD 800 [facility] 2nd [place] [address] Surgeon Otolaryngology 11/21/21 documented as of this encounter
--- OUTSIDE RECORDS SUMMARY | 2024-09-07 13:24 | XMS_ITS | Encounter Summary ---
Author Organization Healthcare Address [address] [place] [address] Care Team Providers Care Prepress Supervisor Name Role Phone Sergey Oh MD Primary Care Provider [phone] Jean Mak MD Unavailable [phone] Encounter Details Date Type Department Care Team (Late st Contact Info) Description 11/23/2021 Lab Requisition [facility] H Lab 800 [place] [address] Jean Mak MD 800 [facility] 2nd [place] [address] Malignant neoplasm of thyroid gland (CMS/HCC) Social History Tobacco Use Types Packs/Day Years Used Date Smoking Tobacco: Every Day Cigarettes 2 30.4 Started: 1994 Smokeless Tobacco: Former Comments:Vaping Alcohol Use Standard Drinks/Week Comments Yes 0 (1 standard drink = 0.6 oz pur e alcohol) PHQ-2 Answer Date Recorded Patient Health Questionnaire-2 Score 2 11/02/2021 Education Answer Date Recorded What is the highest level of school you have completed or the highest degree you have received? Associate degree: academic program 11/14/2021 Comments Unknown Sex and Gender Information Value [...] file Not on file Not on file COVID-19 Exposure Response Date Recorded In the last 10 days, have yo u been in contact with someone who was confirmed or suspected to have Coronavirus/COVID-19? No / Unsure 11/23/2021 8:59 AM EDT documented as of this encounter Plan of Treatment Upcoming Encounters Date Type Department Care Team ([facility] st Contact Info) Description 09/23/2024 8:40 AM EDT Appointment [facility] CT [address] [address] 09/23/2024 10:00 AM EDT Clinical Support Pav [facility] Head[facility] Neck [facility] Respiratory [address] [phone] 09/23/2024 10:50 AM EDT Office Visit [facility] 800 [place] [address] Moris Valente MD 800 [place], [place] [phone] 09/29/2024 9:40 AM EDT Office Visit Pav [facility] Head[facility] Neck [facility] Respiratory [address] [address] Danny Coon MD 2195 [facility] 125 [place] [address] 09/29/2024 11:30 AM EDT Appointment [facility] A Radiology [address] [place] [address] 12/23/2024 2:00 PM EDT Office Visit [place] [facility] Medicine Specialties [address] [place] [address] Radha Montelongo, CASSIUS [address] [facility] [address] [place] [phone] documented as of this encounter Procedures Procedure Name Priority Date/Time Associated Diagnosis Comments SURGICAL PATHOLOGY CONSULT Routine 11/23/2021 10:54 AM EDT Malignant neoplasm of thyroid gland (CMS/HCC) documented in this encounter Results * Surgical Pathology Consult (11/23/2021 10:54 AM EDT) Case Report Sugical Pathology Consult Case: [id number] Authorizing Provider: Jean Mak MD Collected: 11/23/2021 1056 Ordering Location: [facility] Lab Received: 11/23/2021 1055 Pathologist: Sona Montiel MD Specimen: Thyroid, [id number] 11/27/2021 5:00 PM EDT [facility] Final Diagnosis A. 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 B. LYMPH NODES, RIGHT NECK LEVELS 2A, 3, 4 AND 5, DISSECTION: - SIX OF TWENTY LYMPH NODES POSITIVE FOR METASTATIC CARCINOMA (6+/20). - NEGATIVE FOR EXTRANODAL EXTENSION. C. THYROID, LEFT LOBE, HEMITHYROIDECTOMY : - PAPILLARY THYROID CARCINOMA, MULTIFOCAL (SEE CHECKLIST FOR DETAILS). - METASTATIC PAPILLARY THYROID CARCINOMA INVOLVING ONE OF TWO PERITHYROIDAL LYMPH NODES (1+/2) D. LYMPH NODES, LEFT NECK LEVELS 3, 4, AND 5, DISSECTION: - TWO OF TEN LYMPH NODES ARE POSITIVE FOR METASTATIC CARCINOMA (2+/10). - NEGATIVE FOR EXTRANODAL EXTENSION. 11/27/2021 5:00 PM EDT [facility] at 1700 EDT Synoptic Checklist THYROID GLAND THYROID GLAND: RESECTION - All Specimens 8th Edition - Protocol posted: 09/27/2020 SPECIMEN Procedure: Total thyroidectomy TUMOR Tumor Focality: Multifocal Tumor Characteristics: Tumor Site: Right lobe Tumor Site: Left lobe Tumor Size: Greatest Dimension (Centimeters): 0.4 cm Histologic Type: Papillary carcinoma, classic (usual, conventional) Angioinvasion (vascular invasion): Not identified Lymphatic Invasion: Not identified Perineural Invasion: Not identified Extrathyroidal Extension: Not identified Margin Status: All margins negative for carcinoma Distance from Invasive Carcinoma to Closest Margin: Less than 1 mm REGIONAL LYMPH NODES Regional Lymph Node Status: : Tumor present in regional lymph node(s) Number of Lymph Nodes with Tumor: 10 Donaldo Level(s) Involved: Level Donaldo Level(s) Involved: Right Lateral Level II Donaldo Level(s) Involved: Right Lateral Level III Donaldo Level(s) Involved: Right Lateral Level IV Donaldo Level(s) Involved: Right Lateral Level V Donaldo Level(s) Involved: Left Lateral Level III Donaldo Level(s) Involved: Left Lateral Level IV Donaldo Level(s) Involved: Left Lateral Level V Size of Largest Metastatic Deposit: 1.5 cm Extranodal Extension (LEX): Not identified Number of Lymph Nodes Examined: 33 Donaldo Level(s) Examined: Level Donaldo Level(s) Examined: Right Lateral Level II Donaldo Level(s) Examined: Right Lateral Level III Donaldo Level(s) Examined: Right Lateral Level IV Donaldo Level(s) Examined: Right Lateral Level V Donaldo Level(s) Examined: Left Lateral Level III Donaldo Level(s) Examined: Left Lateral Level IV Donaldo Level(s) Examined: Left Lateral Level V PATHOLOGIC STAGE CLASSIFICATION (pTNM, AJCC 8th Edition) Reporting of pT, pN, and (when applicable) pM categories is based on information available to the pathologist at the time the report is issued. As per the AJCC (Chapter 1, 8th Ed.) it is the managing physician s responsibility to establish the final pathologic stage based upon all pertinent information, including but potentially not limited to this pathology report. TNM Descriptors: m (multiple primary tumors) pT Category: pT1a pN Category: pN1b ADDITIONAL FINDINGS Additional Findings: Adenomatoid nodule(s) or nodular follicular disease Additional Findings: Parathyroid gland(s) present Number of Parathyroid Glands: 1 Location of Parathyroid Gland(s): RIGHT Comment(s): 3 FOCI OF ptc IN RIGHT LOBE AND 2 FOCI IN LEFT LOBE. 11/27/2021 5:00 PM EDT [facility] Clinical Information C73 - Malignant neoplasm of thyroid gland [ICD-10-CM] 11/27/2021 5:00 PM EDT [facility] Gross Description A. [id number] Received along with a corresponding pathology report from [facility] are 39 slide(s) labeled outside case: [id number] collected on 09/09/2019. 11/27/2021 5:00 PM EDT [facility] Note: A resident was involved in the service. I attest I examined the relevant preparations for the specimens and confirmed the diagnosis or interpretation. 11/27/2021 5:00 PM EDT [facility] Tissue Thyroid structure / Unknown 11/23/2021 10:54 AM EDT 11/23/2021 10:55 AM EDT us Jean Mak MD LAB PATHOLOGY ORDERABLES Fin al Result [facility] 800 [place] [address] documented in this encounter Visit Diagnoses Diagnosis Malignant neoplasm of thyroid gland (CMS/HCC) Malignant neoplasm of thyroid gland documented in this encounter Additional Health Concerns Assessment Noted Time A fall risk assessment has been complete d for the patient 11/23/2021 12:37 PM EDT documented as of this encounter Care Teams Prepress Supervisor Relationship Specialty Start Date End Date Sergey Oh MD PCP - General 11/13/21 Jean Mak MD 800 [facility] Cancer [address] [address] Surgeon Otolaryngology 11/21/21 documented as of this encounter
--- OUTSIDE RECORDS SUMMARY | 2024-09-07 13:24 | XMS_ITS | Encounter Summary ---
Author Organization Healthcare Address [address] [place] [address] Care Team Providers Care Photo Tech Name Role Phone Pcp, No Primary Care Provider Sergey Oswald MD Primary Care Provider [phone] Jean Mak MD Unavailable [phone] Encounter Details Date Type Department Care Team (Late st Contact Info) Description 05/22/2021 Orders Only External Location 800 [place] [address] Provider, External Social History Tobacco [...] Info) Description 09/23/2024 8:40 AM EDT Appointment [facility] [address]nd [place] [address] 09/23/2024 10:00 AM EDT Clinical Support [facility] Respiratory [address] [facility] 2nd [place] [address] 09/23/2024 10:50 AM EDT Office Visit [facility] 800 [place] [address] Moris Valente MD 800 [place] [address] 09/29/2024 9:40 AM EDT Office Visit [facility] Head[facility] Neck [facility] Respiratory 800 [facility], 2nd [place] [address] Danny Coon MD [address] [place] [address] 09/29/2024 11:30 AM EDT Appointment [facility] A Radiology [address] [place] [address] 12/23/2024 2:00 PM EDT Office Visit [place] [facility] Medicine Specialties [address], [address] [place] [address] Radha Montelongo, CREW CALLER [address] [facility] [address] [place] [address] documented as of this encounter Procedures Procedure Name Priority Date/Time Associated Diagnosis Comments XR OUTSIDE IMAGES 05/22/2021 5:02 PM EST documented in this encounter Results * XR OUTSIDE IMAGES (05/22/2021 5:02 PM EST) Anatomical Region Laterality Modality Radiographic Jeniffer ging 05/22/2021 5:02 PM EST us External Provider IMG XR PROCEDURES Final Result documented in this encounter Visit Diagnoses Not on filedocumented in this encounter Care Teams Photo Tech Relationship Specialty Start Date End Date Pcp, No 800 [place] [address] PCP - General Family Medicine 03/31/21 11/12/21 Sergey Oh MD 800 [place] [address] PCP - General 11/13/21 Jean Mak MD 800 [facility] 2nd [place] [address] Surgeon Otolaryngology 11/21/21 documented as of this encounter
--- OUTSIDE RECORDS SUMMARY | 2024-09-07 13:24 | XMS_ITS | Encounter Summary ---
Author Organization Healthcare Address [address] [place] [address] Care Team Providers Care Nurse Practitioner Home Assessments Name Role Phone Pcp, No Primary Care Provider Sergey Oswald MD Primary Care Provider [phone] Jean Mak MD Unavailable [phone] Encounter Details Date Type Department Care Team (Late st Contact Info) Description 02/12/2017 Orders Only External Location 800 [place] [address] Provider, External Social History Tobacco [...] Info) Description 09/23/2024 8:40 AM EDT Appointment [facility] [address], [address]nd [place] [address] 09/23/2024 10:00 AM EDT Clinical Support Pav [facility] Respiratory 800 [facility] 2nd [place] [address] 09/23/2024 10:50 AM EDT Office Visit [facility] 800 [place] [address] Moris Valente MD 800 [place] [address] 09/29/2024 9:40 AM EDT Office Visit Pav [facility] Head, Neck & Respiratory 800 [facility], 2nd [place] [address] Danny Coon MD [address] [place] [address] 09/29/2024 11:30 AM EDT Appointment PAV A Radiology [address] [place] [address] 12/23/2024 2:00 PM EDT Office Visit [facility] [address], 2nd [place] [address] Rdaha Montelongo D, HARBOR PILOT [address] [facility] [address] [place] [address] documented as of this encounter Procedures Procedure Name Priority Date/Time Associated Diagnosis Comments XR OUTSIDE IMAGES 02/12/2017 12:23 AM EST documented in this encounter Results * XR OUTSIDE IMAGES (02/12/2017 12:23 AM EST) Anatomical Region Laterality Modality Radiographic Jeniffer ging 02/12/2017 12:2 3 AM EST us External Provider IMG XR PROCEDURES Final Result documented in this encounter Visit Diagnoses Not on filedocumented in this encounter Care Teams Nurse Practitioner Home Assessments Relationship Specialty Start Date End Date Pcp, No 800 [place] [address] PCP - General Family Medicine 03/31/21 11/12/21 Sergey Oh MD 800 [place], [place] [phone] PCP - General 11/13/21 Jean Mak MD 800 [facility] 2nd [place] [address] Surgeon Otolaryngology 11/21/21 documented as of this encounter
--- OUTSIDE RECORDS SUMMARY | 2024-09-07 13:24 | XMS_ITS | Encounter Summary ---
Author Organization Healthcare Address [address] [place] [address] Care Team Providers Care Tool And Die Maker/Designer Name Role Phone Sergey Oh MD Primary Care Provider [phone] Jean Mak MD Unavailable [phone] Encounter Details Date Type Department Care Team (Late st Contact Info) Description 12/13/2023 Orders Only External Location 800 [place] [address] Provider, External Social History Tobacco Use Types [...] Info) Description 09/23/2024 8:40 AM EDT Appointment [facility] [address] [address] 09/23/2024 10:00 AM EDT Clinical Support Pav CC Head, Neck & Respiratory 800 [facility] 2nd [place] [address] 09/23/2024 10:50 AM EDT Office Visit [facility] 800 [place] [address] Moris Valente MD 800 [place], [place] [phone] 09/29/2024 9:40 AM EDT Office Visit Pav CC Head, Neck & Respiratory 800 [facility] 2nd [place] [address] Danny Coon MD [address] [facility] [address] [place] [address] 09/29/2024 11:30 AM EDT Appointment [facility] A Radiology [address] [place] [address] 12/23/2024 2:00 PM EDT Office Visit [place] [facility] [address], 2nd [place] [address] Radha Montelongo, PATIENT ADMITTING CLERK [address] [facility] [address] [place] [address] documented as of this encounter Procedures Procedure Name Priority Date/Time Associated Diagnosis Comments XR OUTSIDE IMAGES 12/13/2023 10:49 AM EDT documented in this encounter Results * XR OUTSIDE IMAGES (12/13/2023 10:49 AM EDT) Anatomical Region Laterality Modality Radiographic Jeniffer ging 12/13/2023 10:4 9 AM EDT us External Provider IMG XR [...] documented as of this encounter Care Teams Tool And Die Maker/Designer Relationship Specialty Start Date End Date Sergey Oh MD PCP - General 11/13/21 Jean Mak MD [address] [place] [address] [phone] Surgeon Otolaryngology 11/21/21 documented as of this encounter
--- OUTSIDE RECORDS SUMMARY | 2024-09-07 13:24 | XMS_ITS | Encounter Summary ---
Author Organization Healthcare Address [address] [place] [address] Care Team Providers Care Terra Cotta Mason Name Role Phone Pcp, No Primary Care Provider Sergey Oswald MD Primary Care Provider [phone] Jean Mak MD Unavailable [phone] Encounter Details Date Type Department Care Team (Late st Contact Info) Description 10/29/2021 Lab Requisition P[facility] H Lab 800 [place] [address] Jean Mak MD 800 [facility] 2nd [place] [address] Localized swelling, mass and lump, neck Social History Tobacco Use Types Packs/Day Years Used Date Smoking Tobacco: Never Assessed PHQ-2 Answer Date Recorded Patient Health Questionnaire-2 Score 2 11/02/2021 Comments Unknown Sex and Gender Information Value [...] 8:40 AM EDT Appointment [facility] [address], 2nd [place] [address] 09/23/2024 10:00 AM EDT Clinical Support Pav CC Head, Neck & Respiratory 800 [facility], 2nd [place] [address] 09/23/2024 10:50 AM EDT Office Visit [facility] 800 [place] [address] Moris Valente MD 800 [place], [place] [phone] 09/29/2024 9:40 AM EDT Office Visit Pav CC Head, Neck & Respiratory 800 [facility], 2nd [place] [address] Danny Coon MD [facility] 125 [place] [address] 09/29/2024 11:30 AM EDT Appointment PAV A Radiology [address] [place] [address] 12/23/2024 2:00 PM EDT Office Visit [place] [facility] [address], 2nd [place] [address] Radha Montelongo D, DIRECTOR OF ALUMNI RELATIONS [address] [facility] [address] [place] [address] documented as of this encounter Procedures Procedure Name Priority Date/Time Associated Diagnosis Comments CYTOLOGY CONSULT Routine 10/29/2021 10:3 1 AM EDT Localized swelling, mass and lump, neck documented in this encounter Results * Cytology Consult (10/29/2021 10:31 AM EDT) Case Report Cytology Case: [id number] Authorizing Provider: Jean Mak MD Collected: 10/29/2021 1031 Ordering Location: [facility] Lab Received: 10/29/2021 1031 Pathologist: Sourav Olvera MD Specimen: Neck, FNA, [id number] 10/30/2021 12:43 PM EDT [facility] Final Diagnosis A. NECK, RIGHT, FINE NEEDLE ASPIRATION (OUTSIDE CASE [id number], COLLECTED 09/04/2021): - MARKEDLY ATYPICAL CELLS, SUSPICIOUS FOR INVOLVEMENT BY PAPILLARY THYROID CARCINOMA 10/30/2021 12:43 PM EDT [facility]ALTH[facility]ARE [facility] at 1243 EDT Clinical Information R22.1 - Localized swelling, mass and lump, neck [ICD-10-CM] 10/30/2021 12:43 PM EDT [facility] Gross Description A. [id number] For clinical data and diagnosis (SUSPICIOUS) for this specimen ([id number]/FN A) see final report issued by [facility] Pathology Department. 10/30/2021 12:43 PM EDT [facility] Fine Needle Aspirate Neck structure / Unknown 10/29/2021 10:31 AM EDT 10/29/2021 10:31 AM EDT us Jean Mak MD LAB PATHOLOGY ORDERABLES Fin al Result [facility] 800 [place] [address] documented in this encounter Visit Diagnoses Diagnosis Localized swelling, mass and lump, neck Swelling, mass, or lump in head and neck documented in this encounter Care Teams Terra Cotta Mason Relationship Specialty Start Date End Date Pcp, No 800 [place] [address] PCP - General Family Medicine 03/31/21 11/12/21 Sergey Oh MD [address] [place] [address] PCP - General 11/13/21 Jean Mak MD [address] [place] [address] [address] Surgeon Otolaryngology 11/21/21 documented as of this encounter
--- OUTSIDE RECORDS SUMMARY | 2024-09-07 13:25 | XMS_ITS | Encounter Summary ---
Author Organization Healthcare Address [address] [place] [address] Care Team Providers Care Civil Technician Name Role Phone Pcp, No Primary Care Provider Sergey Oswald MD Primary Care Provider [phone] Jean Mak MD Unavailable [phone] Encounter Details Date Type Department Care Team (Late st Contact Info) Description 11/24/2019 Orders Only External Location 800 [place] [address] Provider, External Social History Tobacco [...] Info) Description 09/23/2024 8:40 AM EDT Appointment [facility] [address], [address]nd [place] [address] 09/23/2024 10:00 AM EDT Clinical Support Pav CC Head, Neck & Respiratory 800 [facility] 2nd [place] [address] 09/23/2024 10:50 AM EDT Office Visit [facility] 800 [place] [address] Moris Valente MD 800 [place] [address] 09/29/2024 9:40 AM EDT Office Visit Pav CC Head, Neck & Respiratory 800 [facility], 2nd [place] [address] Danny Coon MD [address] [place] [address] 09/29/2024 11:30 AM EDT Appointment [facility] A Radiology [address] [place] [address] 12/23/2024 2:00 PM EDT Office Visit [place] [facility] [address], 2nd [place] [address] Radha Montelongo D, CAR ESCORT [address] [facility] [address] [place] [address] documented as of this encounter Procedures Procedure Name Priority Date/Time Associated Diagnosis Comments NM OUTSIDE IMAGES 11/24/2019 11:02 AM EDT documented in this encounter Results * NM OUTSIDE IMAGES (11/24/2019 11:02 AM EDT) Anatomical Region Laterality Modality Nuclear Medicine 11/24/2019 11:0 2 AM EDT us External Provider IMG NM PROCEDURES Final Result documented in this encounter Visit Diagnoses Not on filedocumented in this encounter Care Teams Civil Technician Relationship Specialty Start Date End Date Pcp, No 800 [place] [address] PCP - General Family Medicine 03/31/21 11/12/21 Sergey Oh MD 800 [place], [place] [phone] PCP - General 11/13/21 Jean Mak MD 800 [facility] 2nd [place] [address] Surgeon Otolaryngology 11/21/21 documented as of this encounter
--- OUTSIDE RECORDS SUMMARY | 2024-09-07 13:25 | XMS_ITS | Encounter Summary ---
Author Organization Healthcare Address [address] [place] [address] Care Team Providers Care Compensator Name Role Phone Pcp, No Primary Care Provider Sergey Oswald MD Primary Care Provider [phone] Jean Mak MD Unavailable [phone] Encounter Details Date Type Department Care Team (Late st Contact Info) Description 01/22/2020 Orders Only External Location 800 [place] [address] Provider, External Social History Tobacco [...] Info) Description 09/23/2024 8:40 AM EDT Appointment [facility] [address], 2nd [place] [address] 09/23/2024 10:00 AM EDT Clinical Support Pav CC Head, Neck & Respiratory 800 [facility] 2nd [place] [address] 09/23/2024 10:50 AM EDT Office Visit [facility] 800 [place] [address] Moris Valente MD 800 [place] [address] 09/29/2024 9:40 AM EDT Office Visit Pav CC Head, Neck & Respiratory 800 [facility], 2nd [place] [address] Danny Coon MD [address] [place] [address] 09/29/2024 11:30 AM EDT Appointment [facility] A Radiology [address] [place] [address] 12/23/2024 2:00 PM EDT Office Visit [place] [facility] [address], 2nd [place] [address] Radha Montelongo D, JIGGER OPERATOR [address] [facility] [address] [place] [address] documented as of this encounter Procedures Procedure Name Priority Date/Time Associated Diagnosis Comments CT NEURO OUTSIDE IMAGES 01/22/2020 5:45 PM EDT documented in this encounter Results * CT NEURO OUTSIDE IMAGES (01/22/2020 5:45 PM EDT) Anatomical Region Laterality Modality Computed Tomogra phy 01/22/2020 5:45 PM EDT us External Provider IMG CT PROCEDURES Final Result documented in this encounter Visit Diagnoses Not on filedocumented in this encounter Care Teams Compensator Relationship Specialty Start Date End Date Pcp, No 800 [place] [address] PCP - General Family Medicine 03/31/21 11/12/21 Sergey Oh MD 800 [place], [place] [address] PCP - General 11/13/21 Jean Mak MD 800 [facility] 2nd [place] [address] Surgeon Otolaryngology 11/21/21 documented as of this encounter
--- OUTSIDE RECORDS SUMMARY | 2024-09-07 13:25 | XMS_ITS | Encounter Summary ---
Author Organization Healthcare Address [address] [place] [address] Care Team Providers Care Display Artist Name Role Phone Pcp, No Primary Care Provider Sergey Oswald MD Primary Care Provider [phone] Jean Mak MD Unavailable [phone] Encounter Details Date Type Department Care Team (Late st Contact Info) Description 11/19/2019 Orders Only External Location 800 [place] [address] Provider, External Social History Tobacco [...] Info) Description 09/23/2024 8:40 AM EDT Appointment [facility] [address], 2nd [place] [address] 09/23/2024 10:00 AM EDT Clinical Support Pav CC Head, Neck & Respiratory 800 [facility] 2nd [place] [address] 09/23/2024 10:50 AM EDT Office Visit [facility] 800 [place] [address] Moris Valente MD 800 [place] [address] 09/29/2024 9:40 AM EDT Office Visit Pav CC Head, Neck & Respiratory 800 [facility], 2nd [place] [address] Danny Coon MD [address] [place] [address] 09/29/2024 11:30 AM EDT Appointment [facility] A Radiology [address] [place] [address] 12/23/2024 2:00 PM EDT Office Visit [place] [facility] [address], 2nd [place] [address] Radha Montelongo, SUPERVISOR HARVESTING [address] [facility] [address] [place] [address] documented as of this encounter Procedures Procedure Name Priority Date/Time Associated Diagnosis Comments NM OUTSIDE IMAGES 11/19/2019 2:46 PM EDT documented in this encounter Results * NM OUTSIDE IMAGES (11/19/2019 2:46 PM EDT) Anatomical Region Laterality Modality Nuclear Medicine 11/19/2019 2:46 PM EDT External Provider IMG NM PROCEDURES Final Result documented in this encounter Visit Diagnoses Not on filedocumented in this encounter Care Teams Display Artist Relationship Specialty Start Date End Date Pcp, No 800 [place] [address] PCP - General Family Medicine 03/31/21 11/12/21 Sergey Oh MD 800 [place], [place] [phone] PCP - General 11/13/21 Jean Mak MD 800 [facility] 2nd [place] [address] Surgeon Otolaryngology 11/21/21 documented as of this encounter
--- OUTSIDE RECORDS SUMMARY | 2024-09-07 13:25 | XMS_ITS | Encounter Summary ---
Author Organization Healthcare Address [address] [place] [address] Care Team Providers Care Master Electrician Name Role Phone Pcp, No Primary Care Provider Sergey Oswald MD Primary Care Provider [phone] Jean Mak MD Unavailable [phone] Encounter Details Date Type Department Care Team (Late st Contact Info) Description 11/19/2019 Orders Only External Location 800 [place] [address] Provider, External Social History Tobacco [...] Info) Description 09/23/2024 8:40 AM EDT Appointment [facility] [address], 2nd [place] [address] 09/23/2024 10:00 AM EDT Clinical Support Pav CC Head, Neck & Respiratory 800 [facility] 2nd [place] [address] 09/23/2024 10:50 AM EDT Office Visit [facility] 800 [place] [address] Moris Valente MD 800 [place] [address] 09/29/2024 9:40 AM EDT Office Visit Pav CC Head, Neck & Respiratory [facility], 2nd [place] [address] Danny Coon MD [address] [place] [address] 09/29/2024 11:30 AM EDT Appointment [facility] A Radiology [address] [place] [address] 12/23/2024 2:00 PM EDT Office Visit [place] [facility] [address], 2nd [place] [address] Radha Montelongo, MACHINE HOSE CUTTER [address] [facility] [address] [place] [address] documented as of this encounter Procedures Procedure Name Priority Date/Time Associated Diagnosis Comments NM OUTSIDE IMAGES 11/19/2019 9:41 AM EDT documented in this encounter Results * NM OUTSIDE IMAGES (11/19/2019 9:41 AM EDT) Anatomical Region Laterality Modality Nuclear Medicine 11/19/2019 9:41 AM EDT us External Provider IMG NM PROCEDURES Final Result documented in this encounter Visit Diagnoses Not on filedocumented in this encounter Care Teams Master Electrician Relationship Specialty Start Date End Date Pcp, No 800 [place] [address] PCP - General Family Medicine 03/31/21 11/12/21 Sergey Oh MD 800 [place], [place] [phone] PCP - General 11/13/21 Jean Mak MD 800 [facility] 2nd [place] [address] Surgeon Otolaryngology 11/21/21 documented as of this encounter
--- OUTSIDE RECORDS SUMMARY | 2024-09-07 13:25 | XMS_ITS | Encounter Summary ---
Author Organization Healthcare Address [address] [place] [address] Care Team Providers Care Tubing Oiler Name Role Phone Sergey Oh MD Primary Care Provider [phone] Jean Mak MD Unavailable [phone] Encounter Details Date Type Department Care Team (Late st Contact Info) Description 06/30/2024 Results Follow-Up Pav CC Head, Neck & Respiratory [address], 2nd [place] [address] Danny Coon MD [address] [place] [address] 125 [place] [address] Social History Tobacco Use Types Packs/Day [...] Info) Description 09/23/2024 8:40 AM EDT Appointment [facility] [address] [facility] 2nd [place] [address] 09/23/2024 10:00 AM EDT Clinical Support Pav CC Head, Neck & Respiratory [address] [address] 09/23/2024 10:50 AM EDT Office Visit [facility] 800 [place] [address] Moris Valente MD 800 [place] [address] 09/29/2024 9:40 AM EDT Office Visit Pav CC Head, Neck & Respiratory [address] [address] Danny Coon MD 2195 [facility] 125 [place] [address] 09/29/2024 11:30 AM EDT Appointment [facility] A Radiology [address] [place] [address] 12/23/2024 2:00 PM EDT Office Visit [place] [facility] [address] [facility] 2nd [facility] [place] [address] Radha Montelongo, MARKETING SUPPORT COORDINATOR [address] [facility] [address] [place] [address] documented as of this encounter Visit Diagnoses Not on filedocumented in this encounter Additional Health Concerns Assessment Noted Time PHQ-9 Depression Total Score: 0 03/24/20 25 1:53 PM EDT A fall risk assessment has been complete d for the patient 06/30/2024 2:58 PM EDT A Body Mass Index follow-up plan has been documented for the patient 06/23/2024 9:55 AM EDT documented as of this encounter Care Teams Tubing Oiler Relationship Specialty Start Date End Date Sergey Oh MD PCP - General 11/13/21 Jean Mak MD 800 [facility] Cancer [address] [address] Surgeon Otolaryngology 11/21/21 documented as of this encounter
--- OUTSIDE RECORDS SUMMARY | 2024-09-07 13:25 | XMS_ITS | Encounter Summary ---
Author Organization Healthcare Address [address] [place] [address] Care Team Providers Care Gate Watchman Name Role Phone Pcp, No Primary Care Provider Sergey Oswald MD Primary Care Provider [phone] Jean Mak MD Unavailable [phone] Encounter Details Date Type Department Care Team (Late st Contact Info) Description 10/31/2021 Lab Requisition PAV H Lab 800 [place] [address] Jean Mak MD 800 [facility] [address] [place] [address] Nontoxic single thyroid nodule Social History Tobacco Use Types Packs/Day Years Used Date Smoking Tobacco: Never Assessed PHQ-2 Answer Date Recorded Patient Health Questionnaire-2 Score 2 11/02/2021 Comments Unknown Sex and Gender Information Value Date Recorded Sex Assigned at Female 02/19/2022 3:22 PM EST Legal Sex Female 8:15 PM EDT Gender Identity Female 02/19/2022 3:22 PM EST Sexual Orientation Straight 02/19/2022 3: 22 PM EST COVID-19 Exposure Response Date Recorded In the last 10 days, have yo u been in contact with someone who was confirmed or suspected to have Coronavirus/COVID-19? No / Unsure 11/02/2021 12:45 PM EDT documented as of this encounter Functional Status * Over the past 2 weeks, how often have you been bothered by any of the following problems? Question Answer Date of Assessment Author Little interest or pleasure in doing things Not at all 11/02/2021 1:13 PM EDT Suzanna Hathaway Feeling down, depressed, or hopeless More than half the days 11/02/2021 1:13 PM EDT Anna Hathaway Patient Health Questionnaire-2 Score 2 11/02/2021 1:13 PM EDT Reyna Hathaway * Calculated C-SSRS Risk Score (Lifetime/Recent) Answer Date of Assessment Author No Risk Indicated 11/02/2021 1:13 PM EDT Anna Aguilar * Question Answer Date of Assessment Author 1. Wish to be (Past 1 Month) No 11/02/2021 1:13 PM EDT Suzanna Hathaway 2. Non-Specific Active Suici juanis Thoughts (Past 1 Month) No 11/02/2021 1:13 PM EDT Kendal Hathaway 6. Suicidal Behavior (Lifetime) No 1:13 PM EDT Anna Hathaway documented as of this encounter Plan of Treatment Upcoming Encounters Date Type Department Care Team (Late st Contact Info) Description 09/23/2024 8:40 AM EDT Appointment [facility] [address], [address] [place] [address] 09/23/2024 10:00 AM EDT Clinical Support Pav CC Head, Neck & Respiratory [address] [address] 09/23/2024 10:50 AM EDT Office Visit [facility] 800 [place] [address] Moris Valente MD 800 [place] [address] 09/29/2024 9:40 AM EDT Office Visit Pav CC Head, Neck & Respiratory [address] [address] Danny Coon MD [address] [place] [address] 09/29/2024 11:30 AM EDT Appointment [facility] A Radiology [address] [place] [address] 12/23/2024 2:00 PM EDT Office Visit [place] [facility] [address], 2nd [place] [address] Radha Montelongo, HEALTH AND SAFETY ADVISOR [address] [place] [address] documented as of this encounter Visit Diagnoses Diagnosis Nontoxic single thyroid nodule Nontoxic uninodular goiter documented in this encounter Care Teams Gate Watchman Relationship Specialty Start Date End Date Pcp, No 800 [place] [address] PCP - General Family Medicine 03/31/21 11/12/21 Sergey Oh MD 800 [place] [address] PCP - General 11/13/21 Jean Mak MD 800 [facility] 2nd [place] [address] Surgeon Otolaryngology 11/21/21 documented as of this encounter
--- OUTSIDE RECORDS SUMMARY | 2024-09-07 13:25 | XMS_ITS | Encounter Summary ---
Author Organization Healthcare Address [address] [place] [address] Care Team Providers Care Automotive Glass Specialist Name Role Phone Sergey Oh MD Primary Care Provider [phone] Jean Mak MD Unavailable [phone] Encounter Details Date Type Department Care Team (Late st Contact Info) Description 10/21/2023 Orders Only External Location 800 [place] [address] Provider, External Social History Tobacco Use Types [...] 09/23/2024 8:40 AM EDT Appointment [facility] [address] [phone] 09/23/2024 10:00 AM EDT Clinical Support [facility] [address] [facility] 2nd [place] [address] 09/23/2024 10:50 AM EDT Office Visit [facility] [address] [place] [address] Moris Valente MD 800 [place], [place] [phone] 09/29/2024 9:40 AM EDT Office Visit [facility] [address] [facility] 2nd [place] [address] Danny Coon MD [address] [facility] [address] [place] [address] 09/29/2024 11:30 AM EDT Appointment [facility] A Radiology [address] [place] [address] 12/23/2024 2:00 PM EDT Office Visit [facility] [address], [address]nd [place] [address] Radha Montelongo, SENIOR INFORMATICA DEVELOPER [address] [facility] [address] [place] [address] documented as of this encounter Procedures Procedure Name Priority Date/Time Associated Diagnosis Comments US OUTSIDE IMAGES 10/21/2023 3:51 PM EDT documented in this encounter Results * US OUTSIDE IMAGES (10/21/2023 3:51 PM EDT) Anatomical Region Laterality Modality Ultrasound 10/21/2023 3:51 PM EDT us External Provider IMG US PROCEDURES Final Result documented in this encounter Visit Diagnoses Not on filedocumented in this encounter Additional Health Concerns Assessment Noted Time PHQ-9 Depression Total Score: 11 022 9:07 AM EDT A fall risk assessment has been complete d for the patient 09/04/2023 12:57 PM EDT A Body Mass Index follow-up plan has been documented for the patient 09/10/2023 11:55 AM EDT documented as of this encounter Care Teams Automotive Glass Specialist Relationship Specialty Start Date End Date Sergey Oh MD PCP - General 11/13/21 Jean Mak MD [address] [place] [address] [phone] Surgeon Otolaryngology 11/21/21 documented as of this encounter
--- OUTSIDE RECORDS SUMMARY | 2024-09-07 13:25 | XMS_ITS | Encounter Summary ---
Author Organization Healthcare Address [address] [place] [address] Care Team Providers Care Medical Case Manager Name Role Phone Pcp, No Primary Care Provider Sergey Oswald MD Primary Care Provider [phone] Jean Mak MD Unavailable [phone] Encounter Details Date Type Department Care Team (Late st Contact Info) Description 09/04/2021 Orders Only External Location 800 [place] [address] Cristian Griffith MD [address] [place] [address] Social History Tobacco Use Types Packs/Day Years [...] Info) Description 09/23/2024 8:40 AM EDT Appointment [facility] CT [address], 2nd [place] [address] 09/23/2024 10:00 AM EDT Clinical Support [facility] [address] , 2nd [place] [address] 09/23/2024 10:50 AM EDT Office Visit [facility] [address] [place] [address] Moris Valente MD 800 [place], [place] [phone] 09/29/2024 9:40 AM EDT Office Visit [facility] Res[facility] 800 [facility], 2nd [place] [address] Danny Coon MD [address] [place] [address] 09/29/2024 11:30 AM EDT Appointment [facility] A Radiology [address] [place] [address] 12/23/2024 2:00 PM EDT Office Visit [place] [facility] [address], 2nd [place] [address] Radha Montelongo D, MACHINE SETTER [address] [facility] [address] [place] [address] documented as of this encounter Procedures Procedure Name Priority Date/Time Associated Diagnosis Comments US ABDOMEN 09/04/2021 1:38 PM EDT documented in this encounter Results * US Abdomen (09/04/2021 1:38 PM EDT) Anatomical Region Laterality Modality Abdomen Ultrasound 09/04/2021 1:38 PM EDT us Cristian Griffith MD IMG US PROCEDURES Final Re sult documented in this encounter Visit Diagnoses Not on filedocumented in this encounter Care Teams Medical Case Manager Relationship Specialty Start Date End Date Pcp, No 800 [place] [address] PCP - General Family Medicine 03/31/21 11/12/21 Sergey Oh MD 800 [place], [place] [phone] PCP - General 11/13/21 Jean Mak MD 800 [facility] Cancer [address] [address] Surgeon Otolaryngology 11/21/21 documented as of this encounter
--- OUTSIDE RECORDS SUMMARY | 2024-09-07 13:25 | XMS_ITS | Encounter Summary ---
Author Organization Healthcare Address [address] [place] [address] Care Team Providers Care Java Lead Name Role Phone Pcp, No Primary Care Provider Sergey Oswald MD Primary Care Provider [phone] Jean Mak MD Unavailable [phone] Encounter Details Date Type Department Care Team (Late st Contact Info) Description 09/20/2021 Orders Only External Location 800 [place] [address] Cristian Griffith MD [address] [place] [address] Social History Tobacco Use Types Packs/Day Years [...] Info) Description 09/23/2024 8:40 AM EDT Appointment [facility] CT [address] 2nd [place] [address] 09/23/2024 10:00 AM EDT Clinical Support [facility] [address] , 2nd [place] [address] 09/23/2024 10:50 AM EDT Office Visit [facility] [address] [place] [address] Moris Valente MD 800 [place], [place] [phone] 09/29/2024 9:40 AM EDT Office Visit [facility] Res[facility] 800 [facility], 2nd [place] [address] Danny Coon MD [address] [place] [address] 09/29/2024 11:30 AM EDT Appointment [facility] Rad[facility] [address] [place] [address] 12/23/2024 2:00 PM EDT Office Visit [place] [facility] [address], [address]nd [place] [address] Radha Montelongo D, MAIL EXAMINER [address] [facility] [address] [place] [address] documented as of this encounter Procedures Procedure Name Priority Date/Time Associated Diagnosis Comments MAMMOGRAPHY OUTSIDE IMAGES UPLOAD 09/20/2021 3:55 PM EDT documented in this encounter Results * Mammography Outside Images Upload (09/20/2021 3:55 PM EDT) Anatomical Region Laterality Modality Mammography 09/20/2021 3:55 PM EDT us Cristian Griffith MD IMG BI PROCEDURES Final Re sult documented in this encounter Visit Diagnoses Not on filedocumented in this encounter Care Teams Java Lead Relationship Specialty Start Date End Date Pcp, No 800 [place] [address] PCP - General Family Medicine 03/31/21 11/12/21 Sergey Oh MD 800 [place], [place] [phone] PCP - General 11/13/21 Jean Mak MD [address] [place] [address] [address] Surgeon Otolaryngology 11/21/21 documented as of this encounter
--- OUTSIDE RECORDS SUMMARY | 2024-09-07 13:25 | XMS_ITS | Encounter Summary ---
Author Organization Healthcare Address [address] [place] [address] Care Team Providers Care Armorer Technician Name Role Phone Pcp, No Primary Care Provider Sergey Oswald MD Primary Care Provider [phone] Jean Mak MD Unavailable [phone] Encounter Details Date Type Department Care Team (Late st Contact Info) Description 08/30/2019 Orders Only External Location 800 [place] [address] Provider, External Social History Tobacco [...] Info) Description 09/23/2024 8:40 AM EDT Appointment [facility] [address], [address]nd [place] [address] 09/23/2024 10:00 AM EDT Clinical Support [facility] 800 [facility] 2nd [place] [address] 09/23/2024 10:50 AM EDT Office Visit [facility] 800 [place] [address] Moris Valente MD 800 [place] [address] 09/29/2024 9:40 AM EDT Office Visit [facility] Res[facility] 800 [facility], 2nd [place] [address] Danny Coon MD [address] [place] [address] 09/29/2024 11:30 AM EDT Appointment [facility] A Radiology [address] [place] [address] 12/23/2024 2:00 PM EDT Office Visit [place] [facility] [address], 2nd [place] [address] Radha Montelongo, PIPE WELDER [address] [facility] [address] [place] [address] documented as of this encounter Procedures Procedure Name Priority Date/Time Associated Diagnosis Comments XR MSK OUTSIDE IMAGES 08/30/2019 8:40 PM EDT documented in this encounter Results * XR MSK OUTSIDE IMAGES (08/30/2019 8:40 PM EDT) Anatomical Region Laterality Modality Radiographic Jeniffer ging 08/30/2019 8:40 PM EDT us External Provider IMG XR PROCEDURES Final Result documented in this encounter Visit Diagnoses Not on filedocumented in this encounter Care Teams Armorer Technician Relationship Specialty Start Date End Date Pcp, No [address] [place] [address] PCP - General Family Medicine 03/31/21 11/12/21 Sergey Oh MD 800 [place], [place] [phone] PCP - General 11/13/21 Jean Mak MD 800 [facility] 2nd [place] [address] Surgeon Otolaryngology 11/21/21 documented as of this encounter
--- OUTSIDE RECORDS SUMMARY | 2024-09-07 13:25 | XMS_ITS | Encounter Summary ---
Author Organization Healthcare Address [address] [place] [address] Care Team Providers Care Gaming Host Name Role Phone Pcp, No Primary Care Provider Sergey Oswald MD Primary Care Provider [phone] Jean Mak MD Unavailable [phone] Encounter Details Date Type Department Care Team (Late st Contact Info) Description 02/14/2020 Orders Only External Location 800 [place] [address] Provider, External Social History Tobacco [...] Info) Description 09/23/2024 8:40 AM EDT Appointment [facility] [address], [address]nd [place] [address] 09/23/2024 10:00 AM EDT Clinical Support [facility] Respiratory 800 [facility] 2nd [place] [address] 09/23/2024 10:50 AM EDT Office Visit [facility] 800 [place] [address] Moris Valente MD 800 [place] [address] 09/29/2024 9:40 AM EDT Office Visit [facility] Respiratory 800 [facility], 2nd [place] [address] Danny Coon MD [address] [place] [address] 09/29/2024 11:30 AM EDT Appointment [facility] A Radiology [address] [place] [address] 12/23/2024 2:00 PM EDT Office Visit [place] [facility] [address], [address]nd [place] [address] Radha Montelongo, NETWORK OPERATIONS CENTER TECHNICIAN [address] [facility] [address] [place] [address] documented as of this encounter Procedures Procedure Name Priority Date/Time Associated Diagnosis Comments XR MSK OUTSIDE IMAGES 02/14/2020 9:34 PM EST documented in this encounter Results * XR MSK OUTSIDE IMAGES (02/14/2020 9:34 PM EST) Anatomical Region Laterality Modality Radiographic Jeniffer ging 02/14/2020 9:34 PM EST us External Provider IMG XR PROCEDURES Final Result documented in this encounter Visit Diagnoses Not on filedocumented in this encounter Care Teams Gaming Host Relationship Specialty Start Date End Date Pcp, No 800 [place] [address] PCP - General Family Medicine 03/31/21 11/12/21 Sergey Oh MD 800 [place], [place] [phone] PCP - General 11/13/21 Jean Mak MD 800 [facility] [address]nd [place] [address] Surgeon Otolaryngology 11/21/21 documented as of this encounter
--- OUTSIDE RECORDS SUMMARY | 2024-09-07 13:25 | XMS_ITS | Encounter Summary ---
Author Organization Healthcare Address [address] [place] [address] Care Team Providers Care Noc Analyst Name Role Phone Pcp, No Primary Care Provider Sergey Oswald MD Primary Care Provider [phone] Jean Mak MD Unavailable [phone] Encounter Details Date Type Department Care Team (Late st Contact Info) Description 01/22/2020 Orders Only External Location 800 [place] [address] Provider, External Social History Tobacco [...] Info) Description 09/23/2024 8:40 AM EDT Appointment [facility] [address], [address] [place] [address] 09/23/2024 10:00 AM EDT Clinical Support Pav [facility] Res[facility] 800 [facility] 2nd [place] [address] 09/23/2024 10:50 AM EDT Office Visit [facility] 800 [place] [address] Moris Valenet MD 800 [place] [address] 09/29/2024 9:40 AM EDT Office Visit Pav [facility] Respiratory 800 [facility], 2nd [place] [address] Danny Coon MD [address] [place] [address] 09/29/2024 11:30 AM EDT Appointment [facility] Radiology [address] [place] [address] 12/23/2024 2:00 PM EDT Office Visit [place] [facility] [address], [address] [place] [address] Radha Montelongo, SUPERINTENDENT LOCAL [address] [facility] [address] [place] [address] documented as of this encounter Procedures Procedure Name Priority Date/Time Associated Diagnosis Comments XR MSK OUTSIDE IMAGES 01/22/2020 5:54 PM EDT documented in this encounter Results * XR MSK OUTSIDE IMAGES (01/22/2020 5:54 PM EDT) Anatomical Region Laterality Modality Radiographic Jeniffer ging 01/22/2020 5:54 PM EDT us External Provider IMG XR PROCEDURES Final Result documented in this encounter Visit Diagnoses Not on filedocumented in this encounter Care Teams Noc Analyst Relationship Specialty Start Date End Date Pcp, No 800 [place] [address] PCP - General Family Medicine 03/31/21 11/12/21 Sergey Oh MD 800 [place], [place] [phone] PCP - General 11/13/21 Jean Mak MD 800 [facility] 2nd [place] [address] Surgeon Otolaryngology 11/21/21 documented as of this encounter
--- OUTSIDE RECORDS SUMMARY | 2024-09-07 13:25 | XMS_ITS | Encounter Summary ---
Author Organization Healthcare Address [address] [place] [address] Care Team Providers Care Compensation Consultant Name Role Phone Sergey Oh MD Primary Care Provider [phone] Jean Mak MD Unavailable [phone] Encounter Details Date Type Department Care Team (Late st Contact Info) Description 06/30/2024 Results Follow-Up Pav [facility] Res[facility] [address], [address]nd [place] [address] Danny Coon MD [address] [place] [address] 125 [place] [address] Social History Tobacco Use Types [...] Upcoming Encounters Date Type Department Care Team ([facility] st Contact Info) Description 09/23/2024 8:40 AM EDT Appointment [facility] [address] [facility] [place] [facility] 2nd [place] [address] 09/23/2024 10:00 AM EDT Clinical Support [facility] [address] [address] 09/23/2024 10:50 AM EDT Office Visit [facility] 800 [place] [address] Moris Valente MD 800 [place] [address] 09/29/2024 9:40 AM EDT Office Visit [facility] Res[facility] [address] [address] Danny Coon MD [address] [facility] 125 [place] [address] 09/29/2024 11:30 AM EDT Appointment [facility] A Radiology [address] [place] [address] 12/23/2024 2:00 PM EDT Office Visit [place] [facility] [address] [facility] [place] [facility] 2nd [facility] [place] [address] Radha Montelongo, STAGE HAND [address] [facility] [address] [place] [address] documented as of this encounter Visit Diagnoses [...] documented as of this encounter Care Teams Compensation Consultant Relationship Specialty Start Date End Date Sergey Oh MD PCP - General 11/13/21 Jean Mak MD 800 [facility] Cancer [address] [address] Surgeon Otolaryngology 11/21/21 documented as of this encounter
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
--- OUTSIDE RECORDS SUMMARY | 2024-09-07 13:25 | XMS_ITS | Encounter Summary ---
Author Organization Healthcare Address [address] [place] [address] Care Team Providers Care Rn Cardiac Name Role Phone Pcp, No Primary Care Provider Sergey Oswald MD Primary Care Provider [phone] Jean Mak MD Unavailable [phone] Encounter Details Date Type Department Care Team (Late st Contact Info) Description 07/15/2019 Orders Only External Location [address] [place] [address] Provider, External Social History Tobacco [...] Info) Description 09/23/2024 8:40 AM EDT Appointment [facility] [address] [place] [address] 09/23/2024 10:00 AM EDT Clinical Support [facility] [address] [facility] 2nd [place] [address] 09/23/2024 10:50 AM EDT Office Visit [facility] [address] [place] [address] Moris Valente MD [address] [place] [address] 09/29/2024 9:40 AM EDT Office Visit [facility] [address] [facility], 2nd [place] [address] Danny Coon MD [address] [place] [address] 09/29/2024 11:30 AM EDT Appointment [facility] A Radiology [address] [place] [phone] 12/23/2024 2:00 PM EDT Office Visit [facility] [address], [address] [place] [address] Radha Montelongo D, POWER LINE INSTALLER AND REPAIRER [address] [facility] [address] [place] [address] documented as of this encounter Procedures Procedure Name Priority Date/Time Associated Diagnosis Comments CT NEURO OUTSIDE IMAGES 07/15/2019 11:55 AM EDT documented in this encounter Results * CT NEURO OUTSIDE IMAGES (07/15/2019 11:55 AM EDT) Anatomical Region Laterality Modality Computed Tomogra phy 07/15/2019 11:5 5 AM EDT us External Provider IMG CT PROCEDURES Final Result documented in this encounter Visit Diagnoses Not on filedocumented in this encounter Care Teams Rn Cardiac Relationship Specialty Start Date End Date Pcp, No [address] [place] [address] PCP - General Family Medicine 03/31/21 11/12/21 Sergey Oh MD [address] [place] [address] PCP - General 11/13/21 Jean Mak MD [address] [place] [address] [facility] 2nd [place] [address] Surgeon Otolaryngology 11/21/21 documented as of this encounter
--- OUTSIDE RECORDS SUMMARY | 2024-09-07 13:25 | XMS_ITS | Clinical Summary ---
Author Organization [facility] Address [address] [place] [address] Care Team Providers Care Health Informatics Instructor Name Role Phone Melia Knox Primary Care Provider [phone] Medications OTHER - BILL ONLY Ac tive OTHER - BILL ONLY Ac tive OTHER - BILL ONLY Ac tive Social History Tobacco Use Types Packs/Day Years Used Date Smoking Tobacco: Never Assessed Alcohol Use Standard Drinks/Week Comments Not Asked 0 (1 standard drink = 0.6 oz pur e alcohol) Comments Unknown Sex and Gender Information Value Date Recorded Sex Assigned at Not on file Legal Sex Female 4:21 PM EST Gender Identity Not on file Sexual Orientation Not on file Plan of Treatment Health Maintenance Due Date Last Done Comments Cologuard 1978 Colonoscopy 1978 Colorectal Cancer Screening 1978 FIT 1978 Lipid Screening 1996 Tetanus Vaccination (Every 10 Years) 1996 Cervical Cancer Screening 1999 COVID-19 Vaccine ( season) 2023 Depression Screening 03/31/2024 Influenza Vaccination (Season Ended) 2024 Care Teams Health Informatics Instructor Relationship Specialty Start Date End Date Melia Knox [address] [facility] [place] [address] PCP - General Family Medicine 09/29/17
--- OUTSIDE RECORDS SUMMARY | 2024-09-07 13:25 | XMS_ITS | Encounter Summary ---
Author Organization Healthcare Address [address] [place] [address] Care Team Providers Care Groundhand Name Role Phone Pcp, No Primary Care Provider Sergey Oswald MD Primary Care Provider [phone] Jean Mak MD Unavailable [phone] Encounter Details Date Type Department Care Team (Late st Contact Info) Description 01/23/2020 Orders Only External Location [address] [place] [address] Provider, External Social History Tobacco [...] Info) Description 09/23/2024 8:40 AM EDT Appointment [facility] [address] [place] [address] 09/23/2024 10:00 AM EDT Clinical Support [facility] [address] [facility] 2nd [place] [address] 09/23/2024 10:50 AM EDT Office Visit [facility] [address] [place] [address] Moris Valente MD [address] [place] [address] 09/29/2024 9:40 AM EDT Office Visit [facility] [address] [facility], 2nd [place] [address] Danny Coon MD [address] [place] [address] 09/29/2024 11:30 AM EDT Appointment [facility] Radiology [address] [place] [address] 12/23/2024 2:00 PM EDT Office Visit [facility] [address], [address] [place] [address] Radha Montelongo D, ASSOCIATE PROFESSOR OF BIBLICAL STUDIES [address] [facility] [address] [place] [address] documented as of this encounter Procedures Procedure Name Priority Date/Time Associated Diagnosis Comments CT OUTSIDE IMAGES 01/23/2020 12:07 AM EDT documented in this encounter Results * CT OUTSIDE IMAGES (01/23/2020 12:07 AM EDT) Anatomical Region Laterality Modality Computed Tomogra phy 01/23/2020 12:0 7 AM EDT External Provider IMG CT PROCEDURES Final Result documented in this encounter Visit Diagnoses Not on filedocumented in this encounter Care Teams Groundhand Relationship Specialty Start Date End Date Pcp, No [address] [place] [address] PCP - General Family Medicine 03/31/21 11/12/21 Sergey Oh MD [address] [place], [place] [phone] PCP - General 11/13/21 Jean Mak MD 800 [facility] [address] [place] [phone] Surgeon Otolaryngology 11/21/21 documented as of this encounter
--- NOTE | 2024-09-07 13:30 | CT_ITS ---
FINAL REPORT TECHNIQUE: Pre-and postcontrast axial CT images of the abdomen and pelvis were obtained. Coronal reformatted images were also obtained and reviewed. This study was performed with techniques to keep radiation doses as low as reasonably achievable (ALARA). Individualized dose reduction techniques using automated exposure control or adjustment of mA and/or kV according to the patient's size were employed. CLINICAL HISTORY: RUQ pain; colon cancer COMPARISON: None FINDINGS: Preinfusion images demonstrate no kidney stones. Calcified granulomas are seen in the liver and spleen. Postinfusion images demonstrate scar in the right middle lobe and left lung base. There is mild fatty infiltration of the liver. No intra or extrahepatic biliary ductal dilatation is noted. The gallbladder is surgically absent. The spleen, pancreas, adrenal glands, and kidneys are unremarkable. There is a fat-containing hernia in the midline anterior abdominal wall. Dense vascular calcifications are noted at the iliac bifurcation. The appendix is unremarkable. There are postoperative changes from prior proximal sigmoid anastomosis. IMPRESSION: Mild fatty liver. Fat-containing midline abdominal wall hernia. Reviewed, Interpreted and Dictated by Monico Camacho MD Transcribed by Nannette Michaud Authenticated and [facility]
[2024-09-07] MEDS: SODIUM CHLORIDE 0.9% 10ML SYR (RAD ONLY) 10 ML IV (13:55)
[2024-09-07] MEDS: IOPAMIDOL-370 (76%);100ML BOTTLE 75 ML IV (13:55)
== END 2024-09-07 23:59 | disposition home or self-care (01) ==
LOC: RAD 13:08
PROVIDERS: PCP Family Medicine; Visit Provider Family Medicine
DX: K76.0 Fatty (change of) liver, not elsewhere classified (principal); K43.9 Ventral hernia without obstruction or gangrene; K75.3 Granulomatous hepatitis, not elsewhere classified; Z90.49 Acquired absence of other specified parts of digestive tract
CPT/HCPCS: 74178; Q9967

== ENCOUNTER 2024-11-01 12:25 | Outpatient (CLI) | payer OTHER, SELFPAY ==
--- OUTSIDE RECORDS SUMMARY | 2024-09-23 07:48 | XMS_ITS | Encounter Summary ---
Author Organization [facility] Address [address] 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) Procedures CT Soft Tissue Neck w IV Contrast Danny Coon MD [address] [facility] [address] [place] [address] Phone: tel: fax: Referral ID Status Reason Start Date Expiration Date Visits Re quested Visits Authorized [id number] Closed 06/30/2024 12/30/2025 1 1 * Imaging (Routine) - Closed Specialty Diagnoses / Procedures Referred By Contsarah t Referred To Contact Radiology Diagnoses Malignant neoplasm of sigmoid colon (CMS/HCC) Procedures CT Abdomen Pelvis w IV Contrast Broderick Taylor MD [address] [facility] [address] [place] [address] Phone: tel: fax: Referral ID Status Reason Start Date Expiration Date Visits Re quested Visits Authorized [id number] Closed 06/24/2024 12/24/2025 1 1 * Imaging (Routine) - Closed Specialty Diagnoses / Procedures Referred By Contac t Referred To Contact Radiology Diagnoses Malignant neoplasm of sigmoid colon (CMS/HCC) Procedures CT Chest w IV Contrast Broderick Taylor MD [address] [place] [facility] [address] [place] [address] Phone: tel: fax: Referral ID Status Reason Start Date Expiration Date Visits Re quested Visits Authorized [id number] Closed 06/24/2024 12/24/2025 1 1 Reason for Visit * Imaging (Routine) - Closed Specialty Diagnoses / Procedures Referred By Dhruv kebede Referred To Contact Radiology Diagnoses Malignant neoplasm of sigmoid colon (CMS/HCC) Procedures CT Abdomen Pelvis w IV Contrast Broderick Taylor MD [address] [place] [address] [address] Phone: tel: fax: Referral ID Status Reason Start Date Expiration Date Visits Re quested Visits Authorized [id number] Closed 06/24/2024 12/24/2025 1 1 Encounter Details Date Type Department Care Team (Latest Contact Info) Description 09/23/2024 7:48 AM EDT - 09/23/2024 11:59 PM EDT Hospital Encounter [facility] 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) Discharge Disposition: Home or Self Care Social History Tobacco Use Types Packs/Day Years Used Date Smoking Tobacco: Every Day Cigarettes 1 32.2 Started: 03/31/1994 Passive Smoke Exposure: Current Smokeless Tobacco: Never Comments:Vaping Alcohol Use Standard Drinks/Week Comments Yes 2 (1 standard drink = 0.6 oz pur e alcohol) Occasional PHQ-2 Answer Date Recorded Patient Health Questionnaire-2 Score 0 09/23/2024 PHQ-9 Answer Date Recorded Patient Health Questionnaire-9 [...] on file documented as of this encounter Functional Status * Over the past 2 weeks, how often have you been bothered by any of the following problems? Question Answer Date of Assessment Author Little interest or pleasure in doing things Not at all 09/23/2024 11:05 AM EDT Hailey Cai Feeling down, depressed, or hopeless Not at all 09/23/2024 11:05 AM EDT Hailey Cai Patient Health Questionnaire -2 Score 0 09/23/2024 11:05 AM EDT Hailey Cai * Question Answer Date of Assessment Author Thoughts that you would be b anel off or hurting yourself in some way Not at all 09/23/2024 11:05 AM EDT Hailey Cai documented as of this encounter Medications at Time of Discharge albuterol 108 (90 Base) MCG/ACT inhaler INHALE 2 PUFFS BY MOUTH FOUR TIMES DAILY NEEDED FOR SHORTNESS OF BREATH OR WHEEZING 4 cyclobenzaprine (Flexeril) 10 MG tablet Take 1 tablet (10 mg) by mouth 3 (three) times a day if needed for muscle spasms. ergocalciferol (Drisdol) 1.25 MG (04911 UT) capsule Take 1 capsule (50,000 Units) by mouth 1 (one) time per week. 12 capsule 3 4 HYDROcodone-acetami nophen (Barnum) 7.5-325 MG tablet TAKE ONE (1) TABLET THREE (3) TIMES A DAY BY ORAL ROUTE AFTER MEAL(S) FOR 30 DAYS. hydrOXYzine HCl (Atarax) 50 MG tablet Take by mouth. ipratropium-albuter ol (Duo-Neb) 0.5-2.5 mg/3 mL nebulizer solution Inhale 3 mL 4 times a day by nebulization route as directed for 30 days. 5 ketorolac (Toradol) 10 MG tablet TAKE ONE (1) TABLET FOUR (4) TIMES A DAY BY ORAL ROUTE AFTER MEAL(S) FOR FIVE (5) DAYS. loperamide (Imodium) 2 MG capsule OLANZapine zydis (ZyPREXA ZYDIS) 5 MG disintegrating tablet Take 1 tablet (5 mg) by mouth every night. 30 tablet 4 prochlorperazine (Compazine) 10 MG tablet tenofovir disoproxil fumarate (Viread) 300 MG tabletIndications:C hronic viral hepatitis B without delta agent and without coma (CMS/HCC) Take 1 tablet (300 mg) by mouth daily. 30 tablet 5 06/22/19 26 levothyroxine (Synthroid, Levoxyl) 125 MCG tablet Take 1 tablet by mouth daily. 30 tablet 5 10/07/19 25 documented as of this encounter Miscellaneous Notes * Sara Mckeon - 09/23/2024 7:51 AM EDT Images from the original note were not included. 1639 Caring for Yourself after Contrast Imaging If you had ORAL contrast: ? You can go back to your normal diet and activities as tolerated. ? Drink plenty of fluids, unless told otherwise. If you had IV contrast: ? You can go back to your normal diet and activities as tolerated. ? Drink plenty of fluids, unless told otherwise. ? Leave a bandage on the site for 30 minutes (where the IV was inserted or blood was drawn). If you had Intravesical (bladder) contrast: ? Return to normal diet and activity. What you need to know about delayed reaction to IV contrast What is IV Contrast? ? Contrast is a dye that is put into your body through an IV. ? It is used for imaging scans such as CT scans and MRIs. ? The contrast makes blood vessels, organs and other parts of your body show up better on the scan. What do I need to do after IV contrast? ? Drink lots of fluids. This will help flush the contrast out of your system. ? Drink 2-3 extra glasses or bottles of water within 4 hours of your scan. What is a contrast reaction? ? A contrast reaction is a bad side effect from the contrast dye. ? It is rare but it does happen. ? They can be mild - such as sneezing, itching, or hives. ? They can be severe - such as trouble breathing, throat swelling, and irregular heart beat. When do these reactions happen? ? They often happen right after the contrast is injected. ? Some happen hours after going home. Go to the nearest Emergency Department right away if you have any of these symptoms after you leavethe clinic or hospital. ? Sneezing ? Itching in your mouth, throat, eyes, ears, or skin ? Rash or hives ? Throwing up or stomach sickness ? High heart rate or ?racing? of your heart ? Feeling dizzy or woozy ? Feeling short of breath or like you can?t take a deep breath ? Feeling very anxious for no other reason It is very important that these reactions be treated. Tell the doctor or nurse that you are having a reaction to IV contrast dye. Do not ignore any sign of a reaction! All reactions must be assessed by a doctor. Call 911 if you are alone and your reaction is more than mild sneezing or itching. If you have a mild reaction, call to speak with a Radiologist, explain that you havehad a contrast reaction, as this needs to be added to your medical record. documented in this encounter Plan of Treatment Upcoming Encounters Date Type Department Care Team (Late st Contact Info) Description 12/23/2024 11:00 AM EDT Office Visit [facility] [address] [place] [phone] Edison Skaggs MD [address] [place] [address] 12/23/2024 11:00 AM EDT Clinical Support [facility] [address] [place] [phone] 12/23/2024 2:00 PM EDT Office Visit [facility] [address] [place] [address] Radha Montelongo D, RESHIPPING CLERK [address] [place] [address] 12/29/2024 1:00 PM EDT Clinical Support [facility] [address] [facility]nd [place] [address] 12/29/2024 1:30 PM EDT Office Visit [facility] [address] [facility] [address] [place] [phone] Danny Coon MD [address] [facility] [address] [place] [address] documented as of this encounter Procedures Procedure Name Priority Date/Time Associated Diagnosis Comments CT ABDOMEN PELVIS W IV CONTRAST Routine 09/23/2024 8:36 AM EDT Malignant neoplasm of sigmoid colon (CMS/HCC) CT CHEST W IV CONTRAST Routine 09/23/2024 8:36 AM EDT Malignant neoplasm of sigmoid colon (CMS/HCC) CT SOFT TISSUE NECK W IV CONTRAST Routine 09/23/2024 8:36 AM EDT 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 Patient is status post total thyroidectomy and right-sided neck dissection. No soft tissue at the thyroidectomy bed. No enlarged lymph nodes. Denny Leon M.D. This report has been electronically signed and verified by the Radiologist whose name is printed above. This report contains privileged and confidential information and is intended solely for the use of the individual or entity to which it is addressed. If you are not the intended recipient of this report, you are hereby notified that any copying, distribution, dissemination or action taken in relation to the contents of this report is strictly prohibited and may be unlawful. If you have received this report in error, please notify the sender immediately at [phone] and permanently delete the original report and destroy any copies or printouts. 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 09/23/24 (note in progress): 43-year-old woman who presents for follow up after completion of adjuvant FOLFOX for high risk stage II colon cancer. She continues to have some occasional abdominal pain, but otherwise feels well, weight stable, appetite good, bowel mvmnts normal... Indication: Thyroid cancer. Technique: Contrast-enhanced CT of the neck with, as well as sagittal reformats Comparison: Neck CT from 07/20/2022. Findings: Patient is status post total thyroidectomy and right-sided neck dissection. No soft tissue at the thyroidectomy bed. No enlarged lymph nodes. No enhancing masses or focal fluid collections involving floor of the mouth, base of the tongue, pharynx, or the larynx. Subglottic larynx is patent. Neck vessels are patent. No inflammatory changes around the parotid or the submandibular glands. Emphysematous changes of the lungs. Posterior paraspinal musculature appear unremarkable. No suspicious osseous lesions. Degenerative changes of the cervical spine. 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 Indication: Thyroid cancer. Technique: Contrast-enhanced CT of the neck with, as well as sagittalreformats Comparison: Neck CT from 07/20/2022. Findings: Patient is status post total thyroidectomy and right-sided neckdissection. No soft tissue at the thyroidectomy bed. No enlarged lymphnodes. No enhancing masses or focal fluid collections involving floor of themouth, base of the tongue, pharynx, or the larynx. Subglottic larynx ispatent. Neck vessels are patent. No inflammatory changes around the parotid or the submandibular glands. Emphysematous changes of the lungs. Posterior paraspinal musculatureappear unremarkable. No suspicious osseous lesions. Degenerative changesof the cervical spine. IMPRESSION: Overall, no significant change since prior study. Patient is status post total thyroidectomy and right-sided neckdissection. No soft tissue at the thyroidectomy bed. No enlarged lymphnodes. Denny Leon M.D. This report has been electronically signed and verified by the Radiologistwhose name is printed above. This report contains privileged and confidential information and isintended solely for the use of the individual or entity to which it isaddressed. If you are not the intended recipient of this report, you arehereby notified that any copying, distribution, dissemination or actiontaken in relation to the contents of this report is strictly prohibitedand may be unlawful. If you have received this report in error, pleasenotify the sender immediately at [phone] and permanently delete theoriginal report and destroy any copies or printouts. us Danny Coon MD IM CT PROCEDURES Final Result * CT Abdomen Pelvis w IV Contrast (09/23/2024 8:36 AM EDT) Anatomical Region Laterality Modality Abdomen, Pelvis Computed Tomogra phy Impressions 09/23/2024 11:38 AM EDT Chest: Mild increase in size and number in bilateral lung nodules compared to prior dated June 24, 2024 concerning for metastatic disease progression. Recommend attention on follow-up. Abdomen/Pelvis: No evidence of recurrent or metastatic disease in the abdomen or pelvis. CRITICAL RESULT: No. COMMUNICATION: Per this written report. By electronically signing this report, I, the attending physician, attest that I have personally reviewed the images/data for the above examination(s) and agree with the final edited report. Drafted by Gala Love DO on 09/23/2024 9:28 AM Final report signed by Geno Henriquez DO on 09/23/2024 11:38 AM Narrative 09/23/2024 11:38 AM EDT CLINICAL INDICATION: colon cancer surveillance TECHNIQUE: Multiple axial CT images were obtained from thoracic inlet through pubic symphysis following administration of IV contrast, Omnipaque 300, 100 mL. Reformatted images in the coronal and sagittal planes were generated from the axial data set to facilitate diagnostic accuracy. Total DLP (Dose-Length Product): 1638.66 mGy.cm (accession [id number]), 1638.66 mGy.cm (accession [id number]) Please note: The reported value represents the total of one or more individual components during the CT acquisition on this date and at this time, and as such, the same value may appear in more than one CT report depending on the interpreting/reporting physicians. COMPARISON: CT chest abdomen pelvis dated June 14, 2024 CT abdomen pelvis from outside hospital dated January 25, 2024 FINDINGS: Chest: Lymph Nodes and Mediastinum: No substantial change in right paratracheal lymph node measures 10 mm (series 4 image 145) and right hilar lymph node measuring 8 mm (series 4 image 169). No new suspicious lymph nodes in the chest. Cardiovascular: The heart is normal in caliber. Thoracic great vessels are patent. Right chest wall Port-A-Cath with tip in the lower SVC. Lungs and Pleura: Redemonstration of multiple bilateral less than 5 mm nodules, with some demonstrating slight interval enlargement and some new from prior dated June 24, 2024. For example, right lung nodule measures 6 mm (series 3 image 48), compared to prior in which it measured 3 mm when remeasured similarly. There are two new nodules in the posterior right lower lobe measuring less than 5 mm (series 3 images 66 and 67). A medial left lower lobe pulmonary nodule is unchanged measuring 6 mm (series 3 image 54). Upper lobe predominant emphysematous changes. No pleural effusions or suspicious thickening. Musculoskeletal and Body Wall: No clearly aggressive bone lesions. Abdomen/Pelvis: Solid Abdominal Organs: Contour deformity along the right peripheral liver with presumed surgical clips consistent with prior wedge resection. No discrete liver lesion detected. Cholecystectomy. Splenic granulomas in otherwise unremarkable spleen. No intra or extrahepatic biliary ductal dilatation. Homogeneous enhancement of the pancreas. No contour deforming pancreatic mass. Small left renal cyst. No suspicious renal lesions. No hydronephrosis. No definite renal calculi. GI Tract/Mesentery/Peritoneum: Expected postsurgical changes of sigmoidectomy with colorectal anastomosis. No suspicious findings along the anastomosis. No suspicious peritoneal/mesenteric findings. Otherwise, the large and small bowel appear normal in caliber. No evidence of inflammatory change. Normal appendix. Pelvic Viscera: No suspicious pelvic mass lesions. Lymph Nodes/Vasculature: No lymphadenopathy by CT size criteria. The aortoiliac vasculature is patent and normal in caliber with moderate atherosclerosis. Free Fluid: No ascites. Musculoskeletal and Body Wall: No aggressive or suspicious findings. Small supraumbilical fat-containing hernia. Procedure Note Geno Henriquez, DO - 09/23/2024 CLINICAL INDICATION: colon cancer surveillance TECHNIQUE: Multiple axial CT images were obtained from thoracic inlet through pubicsymphysis following administration of IV contrast, Omnipaque 300, 100 mL.Reformatted images in the coronal and sagittal planes were generated fromthe axial data set to facilitate diagnostic accuracy. Total DLP (Dose-Length Product): 1638.66 mGy.cm (accession [id number]),1638.66 mGy.cm (accession [id number]) Please note: The reported valuerepresents the total of one or more individual components during the CTacquisition on this date and at this time, and as such, the same value mayappear in more than one CT report depending on the interpreting/reportingphysicians. COMPARISON: CT chest abdomen pelvis dated June 14, 2024 CT abdomen pelvis from outside hospital dated January 25, 2024 FINDINGS: Chest: Lymph Nodes and Mediastinum: No substantial change in right paratracheallymph node measures 10 mm (series 4 image 145) and right hilar lymph nodemeasuring 8 mm (series 4 image 169). No new suspicious lymph nodes in thechest. Cardiovascular: The heart is normal in caliber. Thoracic great vessels arepatent. Right chest wall Port-A-Cath with tip in the lower SVC. Lungs and Pleura: Redemonstration of multiple bilateral less than 5 mmnodules, with some demonstrating slight interval enlargement and some newfrom prior dated June 24, 2024. For example, right lung nodule measures 6mm (series 3 image 48), compared to prior in which it measured 3 mm whenremeasured similarly. There are two new nodules in the posterior rightlower lobe measuring less than 5 mm (series 3 images 66 and 67). A medialleft lower lobe pulmonary nodule is unchanged measuring 6 mm (series 3image 54). Upper lobe predominant emphysematous changes. No pleuraleffusions or suspicious thickening. Musculoskeletal and Body Wall: No clearly aggressive bone lesions. Abdomen/Pelvis: Solid Abdominal Organs: Contour deformity along the right peripheral liverwith presumed surgical clips consistent with prior wedge resection. Nodiscrete liver lesion detected. Cholecystectomy. Splenic granulomas inotherwise unremarkable spleen. No intra or extrahepatic biliary ductaldilatation. Homogeneous enhancement of the pancreas. No contour deformingpancreatic mass. Small left renal cyst. No suspicious renal lesions. Nohydronephrosis. No definite renal calculi. GI Tract/Mesentery/Peritoneum: Expected postsurgical changes ofsigmoidectomy with colorectal anastomosis. No suspicious findings alongthe anastomosis. No suspicious peritoneal/mesenteric findings. Otherwise,the large and small bowel appear normal in caliber. No evidence ofinflammatory change. Normal appendix. Pelvic Viscera: No suspicious pelvic mass lesions. Lymph Nodes/Vasculature: No lymphadenopathy by CT size criteria. Theaortoiliac vasculature is patent and normal in caliber with moderateatherosclerosis. Free Fluid: No ascites. Musculoskeletal and Body Wall: No aggressive or suspicious findings. Smallsupraumbilical fat-containing hernia. IMPRESSION: Chest: Mild increase in size and number in bilateral lung nodules compared toprior dated June 24, 2024 concerning for metastatic disease progression.Recommend attention on follow-up. Abdomen/Pelvis: No evidence of recurrent or metastatic disease in the abdomen or pelvis. CRITICAL RESULT: No. COMMUNICATION: Per this written report. By electronically signing this report, I, the attending physician, attestthat I have personally reviewed the images/data for the aboveexamination(s) and agree with the final edited report. Drafted by Gala Love DO on 09/23/2024 9:28 AM Final report signed by Geno Henriquez DO on 09/23/2024 11:38 AM us Broderick Taylor MD IMG CT PROCEDURES Final Resu lt * CT Chest w IV Contrast (09/23/2024 8:36 AM EDT) Anatomical Region Laterality Modality Chest Computed Tomogra phy Impressions 09/23/2024 11:38 AM EDT Chest: Mild increase in size and number in bilateral lung nodules compared to prior dated June 24, 2024 concerning for metastatic disease progression. Recommend attention on follow-up. Abdomen/Pelvis: No evidence of recurrent or metastatic disease in the abdomen or pelvis. CRITICAL RESULT: No. COMMUNICATION: Per this written report. By electronically signing this report, I, the attending physician, attest that I have personally reviewed the images/data for the above examination(s) and agree with the final edited report. Drafted by Gala Love DO on 09/23/2024 9:28 AM Final report signed by Geno Henriquez DO on 09/23/2024 11:38 AM Narrative 09/23/2024 11:38 AM EDT CLINICAL INDICATION: colon cancer surveillance TECHNIQUE: Multiple axial CT images were obtained from thoracic inlet through pubic symphysis following administration of IV contrast, Omnipaque 300, 100 mL. Reformatted images in the coronal and sagittal planes were generated from the axial data set to facilitate diagnostic accuracy. Total DLP (Dose-Length Product): 1638.66 mGy.cm (accession [id number]), 1638.66 mGy.cm (accession [id number]) Please note: The reported value represents the total of one or more individual components during the CT acquisition on this date and at this time, and as such, the same value may appear in more than one CT report depending on the interpreting/reporting physicians. COMPARISON: CT chest abdomen pelvis dated June 14, 2024 CT abdomen pelvis from outside hospital dated January 25, 2024 FINDINGS: Chest: Lymph Nodes and Mediastinum: No substantial change in right paratracheal lymph node measures 10 mm (series 4 image 145) and right hilar lymph node measuring 8 mm (series 4 image 169). No new suspicious lymph nodes in the chest. Cardiovascular: The heart is normal in caliber. Thoracic great vessels are patent. Right chest wall Port-A-Cath with tip in the lower SVC. Lungs and Pleura: Redemonstration of multiple bilateral less than 5 mm nodules, with some demonstrating slight interval enlargement and some new from prior dated June 24, 2024. For example, right lung nodule measures 6 mm (series 3 image 48), compared to prior in which it measured 3 mm when remeasured similarly. There are two new nodules in the posterior right lower lobe measuring less than 5 mm (series 3 images 66 and 67). A medial left lower lobe pulmonary nodule is unchanged measuring 6 mm (series 3 image 54). Upper lobe predominant emphysematous changes. No pleural effusions or suspicious thickening. Musculoskeletal and Body Wall: No clearly aggressive bone lesions. Abdomen/Pelvis: Solid Abdominal Organs: Contour deformity along the right peripheral liver with presumed surgical clips consistent with prior wedge resection. No discrete liver lesion detected. Cholecystectomy. Splenic granulomas in otherwise unremarkable spleen. No intra or extrahepatic biliary ductal dilatation. Homogeneous enhancement of the pancreas. No contour deforming pancreatic mass. Small left renal cyst. No suspicious renal lesions. No hydronephrosis. No definite renal calculi. GI Tract/Mesentery/Peritoneum: Expected postsurgical changes of sigmoidectomy with colorectal anastomosis. No suspicious findings along the anastomosis. No suspicious peritoneal/mesenteric findings. Otherwise, the large and small bowel appear normal in caliber. No evidence of inflammatory change. Normal appendix. Pelvic Viscera: No suspicious pelvic mass lesions. Lymph Nodes/Vasculature: No lymphadenopathy by CT size criteria. The aortoiliac vasculature is patent and normal in caliber with moderate atherosclerosis. Free Fluid: No ascites. Musculoskeletal and Body Wall: No aggressive or suspicious findings. Small supraumbilical fat-containing hernia. Procedure Note Geno Henriquez, DO - 09/23/2024 CLINICAL INDICATION: colon cancer surveillance TECHNIQUE: Multiple axial CT images were obtained from thoracic inlet through pubicsymphysis following administration of IV contrast, Omnipaque 300, 100 mL.Reformatted images in the coronal and sagittal planes were generated fromthe axial data set to facilitate diagnostic accuracy. Total DLP (Dose-Length Product): 1638.66 mGy.cm (accession [id number]),1638.66 mGy.cm (accession [id number]) Please note: The reported valuerepresents the total of one or more individual components during the CTacquisition on this date and at this time, and as such, the same value mayappear in more than one CT report depending on the interpreting/reportingphysicians. COMPARISON: CT chest abdomen pelvis dated June 14, 2024 CT abdomen pelvis from outside hospital dated January 25, 2024 FINDINGS: Chest: Lymph Nodes and Mediastinum: No substantial change in right paratracheallymph node measures 10 mm (series 4 image 145) and right hilar lymph nodemeasuring 8 mm (series 4 image 169). No new suspicious lymph nodes in thechest. Cardiovascular: The heart is normal in caliber. Thoracic great vessels arepatent. Right chest wall Port-A-Cath with tip in the lower SVC. Lungs and Pleura: Redemonstration of multiple bilateral less than 5 mmnodules, with some demonstrating slight interval enlargement and some newfrom prior dated June 24, 2024. For example, right lung nodule measures 6mm (series 3 image 48), compared to prior in which it measured 3 mm whenremeasured similarly. There are two new nodules in the posterior rightlower lobe measuring less than 5 mm (series 3 images 66 and 67). A medialleft lower lobe pulmonary nodule is unchanged measuring 6 mm (series 3image 54). Upper lobe predominant emphysematous changes. No pleuraleffusions or suspicious thickening. Musculoskeletal and Body Wall: No clearly aggressive bone lesions. Abdomen/Pelvis: Solid Abdominal Organs: Contour deformity along the right peripheral liverwith presumed surgical clips consistent with prior wedge resection. Nodiscrete liver lesion detected. Cholecystectomy. Splenic granulomas inotherwise unremarkable spleen. No intra or extrahepatic biliary ductaldilatation. Homogeneous enhancement of the pancreas. No contour deformingpancreatic mass. Small left renal cyst. No suspicious renal lesions. Nohydronephrosis. No definite renal calculi. GI Tract/Mesentery/Peritoneum: Expected postsurgical changes ofsigmoidectomy with colorectal anastomosis. No suspicious findings alongthe anastomosis. No suspicious peritoneal/mesenteric findings. Otherwise,the large and small bowel appear normal in caliber. No evidence ofinflammatory change. Normal appendix. Pelvic Viscera: No suspicious pelvic mass lesions. Lymph Nodes/Vasculature: No lymphadenopathy by CT size criteria. Theaortoiliac vasculature is patent and normal in caliber with moderateatherosclerosis. Free Fluid: No ascites. Musculoskeletal and Body Wall: No aggressive or suspicious findings. Smallsupraumbilical fat-containing hernia. IMPRESSION: Chest: Mild increase in size and number in bilateral lung nodules compared toprior dated June 24, 2024 concerning for metastatic disease progression.Recommend attention on follow-up. Abdomen/Pelvis: No evidence of recurrent or metastatic disease in the abdomen or pelvis. CRITICAL RESULT: No. COMMUNICATION: Per this written report. By electronically signing this report, I, the attending physician, paulie I have personally reviewed the images/data for the aboveexamination(s) and agree with the final edited report. 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) documented in this encounter Administered Medications Inactive Administered Medications - up to 3 most recent administrations Medication Order MAR Action Action Date Dose Rate Site iohexol (OMNIPaque) 300 MG/ML injection 100 mL 100 mL, Intravenous, Once in imaging, 1 dose, Starting on Peg 09/23/24 at 0751, Until Peg 09/23/24 at 0836, Routine, Imaging Protocol Orders Given 09/23/2024 8:36 AM EDT 100 mL iohexol (OMNIPaque) 9 MG/ML oral contrast 500 mL 500 mL, Oral, Once in imaging, 1 dose, Starting on Peg 09/23/24 at 0751, Until Peg 09/23/24 at 0755, Routine, Imaging Protocol Orders Given 09/23/2024 7:55 AM EDT 500 mL documented in this encounter Additional Health Concerns Assessment Noted Time PHQ-9 Depression Total Score: 0 06/22/19 1:53 PM EDT A fall risk assessment has been complete d for the patient 09/23/2024 11:05 AM EDT A Body Mass Index follow-up plan has been documented for the patient 06/23/2024 9:55 AM EDT documented as of this encounter Care Teams Photostat Operator Helper Relationship Specialty Start Date End Date Sergey Oh MD PCP - General 11/13/21 Jean Mak MD [address] [place] [address] [phone] Surgeon Otolaryngology 11/21/21 documented as of this encounter
--- OUTSIDE RECORDS SUMMARY | 2024-09-23 10:00 | XMS_ITS | Encounter Summary ---
Author Organization Healthcare Address [address] [place] [address] Care Team Providers Care Machine Stemmer Name Role Phone Sergey Oh MD Primary Care Provider [phone] Jean Mak MD Unavailable [phone] Reason for Visit * Reason Comments Labs Peripheral stick, le ft arm Encounter Details Date Type Department Care Team (Latest Contact Info) Description 09/23/2024 10:00 AM EDT Clinical Support [facility] [address] [place] [address] Vitamin D deficiency; Post-surgical hypothyroidism; Malignant neoplasm of sigmoid colon (CMS/HCC) Social History Tobacco Use Types Packs/Day [...] as of this encounter Miscellaneous Notes * Progress Notes - Archana Vargas RN - 09/23/2024 10:00 AM EDT Got blood return. But unable to draw enough blood for labs. Flushed port and deassecced documented in this encounter Plan of Treatment Upcoming Encounters Date Type Department Care Team (Late st Contact Info) Description 12/23/2024 11:00 AM EDT Office Visit [facility] On[facility] [address] [place] [address] Edison Skaggs MD [address] [place] [address] 12/23/2024 11:00 AM EDT Clinical Support [facility] [address] [place] [phone] 12/23/2024 2:00 PM EDT Office Visit [facility] [address] [place] [address] Radha Montelongo D, PANEL SEWER [address] [facility] [address] [place] [address] 12/29/2024 1:00 PM EDT Clinical Support [facility] [address] [facility] [place] [phone] 12/29/2024 1:30 PM EDT Office Visit [facility] [address] [facility] [address] [place] [phone] Danny Coon MD [address] [facility] [address] [place] [phone] (work) documented as of this encounter Procedures Procedure Name Priority Date/Time Associated Diagnosis Comments VITAMIN D 25 HYDROXY Routine 09/23/2024 10:34 AM EDT Vitamin D deficiency CBC WITH AUTO DIFFERENTIAL Routine 09/23/2024 10:34 AM EDT Malignant neoplasm of sigmoid colon (CMS/HCC) TSH Routine 09/23/2024 10:34 AM EDT Post-surgical hypothyroidism FREE T4, PLASMA Routine 09/23/2024 10:34 AM EDT Post-surgical hypothyroidism COMPREHENSIVE METABOLIC PANEL, PLASMA Routine 09/23/2024 10:34 AM EDT Malignant neoplasm of sigmoid colon (CMS/HCC) documented in this encounter Results * (ABNORMAL) Comprehensive metabolic panel (09/23/2024 10:34 AM EDT) Glucose, Plasma 83 74 - 99 mg/dL 09/23/2024 11:35 AM EDT [facility] BUN, Plasma 16 7 - 21 mg/dL 09/23/2024 11:35 AM EDT [facility] Creatinine, Plasma 0.79 0.60 - 1.10 mg/dL 09/23/2024 11:35 AM EDT [facility] BUN/Creatinine Ratio 20 09/23/2024 11:35 AM EDT [facility] Sodium, Plasma 140 136 - 145 mmol/L 09/23/2024 11:35 AM EDT [facility] Potassium, Plasma 4.1 3.6 - 4.9 mmol/L 09/23/2024 11:35 AM EDT [facility] Chloride, Plasma 100 97 - 107 mmol/L 09/23/2024 11:35 AM EDT [facility] CO2, Plasma 27 22 - 29 mmol/L 09/23/2024 11:35 AM EDT [facility] Anion Gap 13 6 - 16 mmol/L 09/23/2024 11:35 AM EDT [facility] Total Calcium, Plasma 8.8(L) 8.9 - 10.2 mg/dL 09/23/2024 11:35 AM EDT [facility] Total Protein 7.0 6.3 - 7.9 g/dL 09/23/2024 11:35 AM EDT [facility] Albumin, Plasma 4.2 3.5 - 5.2 g/dL 09/23/2024 11:35 AM EDT [facility] AST, Plasma 29 10 - 35 U/L 09/23/2024 11:35 AM EDT [facility] ALT, Plasma 26 10 - 35 U/L 09/23/2024 11:35 AM EDT [facility] Alkaline Phosphatase, Plasma 151(H) 35 - 104 U/L 09/23/2024 11:35 AM EDT [facility] Total Bilirubin, Plasma 0.3 0.2 - 1.1 mg/dL 09/23/2024 11:35 AM EDT [facility] eGFRcr 93.6 mL/min/1.7 3m*2 09/23/2024 11:35 AM EDT [facility] Comment:Reported eGFRcr in m L/min/1.73m2 is based the CKD-EPI 2020 equation that does not use a race coefficient. Blood Venous blood specimen / Unknown Venipuncture / Unknown 09/23/2024 10:34 AM EDT 09/23/2024 10:56 AM EDT us Caroline Means MD LAB BLOOD ORDERABLES Final Resul t [facility] [address] [place] [address] * (ABNORMAL) CBC and Differential (09/23/2024 10:34 AM EDT) WBC Count 8.04 3.70 - 10.30 10*3/uL LAB HEMATOLOGY METHOD 09/23/2024 11:11 AM EDT [facility] RBC Count 4.50 3.90 - 5.20 10*6/uL LAB HEMATOLOGY METHOD 09/23/2024 11:11 AM EDT [facility] HGB 12.8 11.2 - 15.7 g/dL LAB HEMATOLOGY METHOD 09/23/2024 11:11 AM EDT [facility] HCT 40.1 34.0 - 45.0 % LAB HEMATOLOGY METHOD 09/23/2024 11:11 AM EDT [facility] Platelet Count 266 155 - 369 10*3/uL LAB HEMATOLOGY METHOD 09/23/2024 11:11 AM EDT [facility] MCV 89 79 - 98 fL LAB HEMATOLOGY METHOD 09/23/2024 11:11 AM EDT [facility] MCH 28.4 26.0 - 32.0 pg LAB HEMATOLOGY METHOD 09/23/2024 11:11 AM EDT [facility] MCHC 31.9 30.7 - 35.5 g/dL LAB HEMATOLOGY METHOD 09/23/2024 11:11 AM EDT [facility] RDW 16.7(H) 11.5 - 14.5 % LAB HEMATOLOGY METHOD 09/23/2024 11:11 AM EDT [facility] MPV 9.3 8.8 - 12.5 fL LAB HEMATOLOGY METHOD 09/23/2024 11:11 AM EDT [facility] nRBC 0.0 <=0.0 per 100 WBCs LAB HEMATOLOGY METHOD 09/23/2024 11:11 AM EDT [facility] Differential Type Automated LAB HEMATOLOGY METHOD 09/23/2024 11:11 AM EDT [facility] Neutrophils % 55 % LAB HEMATOLOGY METHOD 09/23/2024 11:11 AM EDT [facility] Lymphocytes % 29 % LAB HEMATOLOGY METHOD 09/23/2024 11:11 AM EDT [facility] Monocytes % 9 % LAB HEMATOLOGY METHOD 09/23/2024 11:11 AM EDT [facility] Eosinophils % 6 % LAB HEMATOLOGY METHOD 09/23/2024 11:11 AM EDT [facility] Basophils % 1 % LAB HEMATOLOGY METHOD 09/23/2024 11:11 AM EDT [facility] Immature Granulocytes % 0 % LAB HEMATOLOGY METHOD 09/23/2024 11:11 AM EDT [facility] Neutrophils Absolute 4.45 1.60 - 6.10 10*3/uL LAB HEMATOLOGY METHOD 09/23/2024 11:11 AM EDT [facility] Lymphocytes Absolute 2.30 1.20 - 3.90 10*3/uL LAB HEMATOLOGY METHOD 09/23/2024 11:11 AM EDT [facility] Monocytes Absolute 0.73 0.30 - 0.90 10*3/uL LAB HEMATOLOGY METHOD 09/23/2024 11:11 AM EDT [facility] Eosinophils Absolute 0.50 0.00 - 0.50 10*3/uL LAB HEMATOLOGY METHOD 09/23/2024 11:11 AM EDT [facility] Basophils Absolute 0.05 0.00 - 0.10 10*3/uL LAB HEMATOLOGY METHOD 09/23/2024 11:11 AM EDT [facility] Immature Granulocytes Absolute 0.01 0.00 - 0.06 10*3/uL LAB HEMATOLOGY METHOD 09/23/2024 11:11 AM EDT [facility] Blood Venous blood specimen / Unknown Venipuncture / Unknown 09/23/2024 10:34 AM EDT 09/23/2024 10:59 AM EDT Narrative [facility] - 09/23/2024 11:11 AM EDT Therapeutic decision making should be based on absolute values, rather than percentages. us Caroline Means MD LAB BLOOD ORDERABLES Final Resul t [facility] [address] [place] [address] * Free T4, Plasma (09/23/2024 10:34 AM EDT) Free T4, Plasma 1.6 0.8 - 1.7 ng/dL 09/23/2024 11:35 AM EDT [facility] Blood Venous blood specimen / Unknown Venipuncture / Unknown 09/23/2024 10:34 AM EDT 09/23/2024 10:56 AM EDT Narrative [facility] - 09/23/2024 11:35 AM EDT Free T4 Trimester Specific Ranges 1st Trimester 0.9 - 1.50 ng/dL 2nd Trimester 0.7 - 1.40 ng/dL 3rd Trimester 0.7 - 1.24 ng/dL us Danny Coon MD LAB BLOOD ORDERABLES Final Resu lt [facility] [address] [place] [address] * (ABNORMAL) Thyroid Stimulating Hormone, Plasma (09/23/2024 10:34 AM EDT) Thyroid Stimulating Hormone, Plasma 0.08(L) 0.40 - 4.20 uIU/mL 09/23/2024 11:35 AM EDT [facility] Blood Venous blood specimen / Unknown Venipuncture / Unknown 09/23/2024 10:34 AM EDT 09/23/2024 10:56 AM EDT Narrative [facility] - 09/23/2024 11:35 AM EDT Trimester Specific Ranges TSH ( IU/mL) 1st Trimester 0.1 - 3.0 2nd Trimester 0.19 - 4.06 3rd Trimester 0.3 - 3.7 us Danny Coon MD LAB BLOOD ORDERABLES Final Resu lt [facility] [address] [place] [address] * Vitamin D 25 Hydroxy (09/23/2024 10:34 AM EDT) Vitamin D 25 Hydroxy 31.9 20.0 - 80.0 ng/mL 09/23/2024 12:53 PM EDT [facility] Blood Venous blood specimen / Unknown Venipuncture / Unknown 09/23/2024 10:34 AM EDT 09/23/2024 10:56 AM EDT [facility] - 09/23/2024 12:53 PM EDT Testing performed on [employer], standardized against NIST SRM 2972. When testing samples from patients whose predominant form of vitamin D is vitamin D2, such as patients receiving vitamin D2 supplementation, results that are subtherapeutic should be confirmed with another method, such as LC-MS/MS, before being used for patient management. Vitamin D, 25-Hydroxy reference range, age 18 years and up: Deficiency: <12 ng/mL Insufficiency: 12 to 19 ng/mL Sufficiency: 20 to 80 ng/mL Possible toxicity: >100 ng/mL us Danny Coon MD LAB BLOOD ORDERABLES Final Resu lt [facility] [address] [place] [address] documented in this encounter Visit Diagnoses Diagnosis Vitamin D deficiency Post-surgical hypothyroidism Postsurgical hypothyroidism Malignant neoplasm of sigmoid colon (CMS/HCC) Malignant neoplasm of sigmoid colon documented in this encounter Additional Health Concerns Assessment Noted Time PHQ-9 Depression Total Score: 0 06/22/19 25 1:53 PM EDT A fall risk assessment has been complete d for the patient 09/23/2024 11:05 AM EDT A Body Mass Index follow-up plan has been documented for the patient 06/23/2024 9:55 AM EDT documented as of this encounter Care Teams Machine Stemmer Relationship Specialty Start Date End Date Sergey Oh MD PCP - General 11/13/21 Jean Mak MD [address] [facility] [address] [place] [phone] Surgeon Otolaryngology 11/21/21 documented as of this encounter
--- OUTSIDE RECORDS SUMMARY | 2024-09-23 10:50 | XMS_ITS | Encounter Summary ---
Author Organization Healthcare Address [address] [place] [address] Care Team Providers Care English Faculty Member Name Role Phone Sergey Oh MD Primary Care Provider [phone] Jean Mak MD Unavailable [phone] Reason for Visit * Reason Comments Follow-up Malignant neoplasm o f sigmoid colon Encounter Details Date Type Department Care Team (Latest Contact Info) Description 09/23/2024 10:50 AM EDT Office Visit [facility] [address] [place] [phone] Moris Valente MD [address] [place] [id number] Malignant neoplasm of sigmoid colon (CMS/HCC) (Primary Dx); Encounter for follow-up surveillance of colon cancer Social History Tobacco Use Types Packs/Day Years [...] on file documented as of this encounter Last Filed Vital Signs Vital Sign Reading Time Taken Comments Blood Pressure 108/76 09/23/2024 11:01 AM EDT Pulse 82 09/23/2024 11:01 AM EDT Temperature 36.6 C (97.9 F) 09/23/2024 11:01 AM EDT Respiratory Rate 16 09/23/2024 11:01 AM EDT Oxygen Saturation 95% 09/23/2024 11:01 AM EDT Inhaled Oxygen Concentration - - Weight 70.9 kg (156 lb 4.9 oz) 09/23/2024 11:01 AM EDT Height 157.5 cm (5' 2 ) 09/23/2024 11:01 AM EDT Body Mass Index 28.59 09/23/2024 11:01 AM EDT documented in this encounter Functional Status * Over the [...] Hailey Cai documented as of this encounter Miscellaneous Notes * Progress Notes - Moris Valente MD - 09/23/2024 10:50 AM EDT General Medical Oncology Clinic Note: Cancer Staging Colon cancer (CMS/HCC) Staging form: Colon and Rectum, AJCC 8th Edition - Clinical stage from 01/15/2024: Stage IIA (cT3, cN0, cM0) - Unsigned Papillary microcarcinoma of thyroid (CMS/HCC) Staging form: Thyroid - Differentiated, AJCC 8th Edition - Clinical stage from 09/09/2019: Stage I (cT1a, cN1b, cM0, Age at diagnosis: < 55 years) - Signed by Jean Mak MD on 11/04/2021 Treatment Plans No treatment plans exist Referring provider: No referring provider defined for this encounter. Subjective Interval history: Mrs. Finnegan is a 43-year-old woman who presents for follow up after completion of adjuvant FOLFOX for high risk stage II colon cancer. She continues to have some occasional abdominal pain, but otherwise feels well, weight stable, appetite good, bowel mvmnts normal. Now new concerns. Review of systems: A 14 point review of systems is conducted and is negative except as documented above in the HPI. Oncology History Overview Note Mrs. Finnegan is a 43-year-old female with a history of papillary thyroid carcinoma and a new diagnosis of adenocarcinoma of the colon. 09/09/19: Total thyroidectomy with bilateral modified neck dissection. Followed by radioactive iodine ablation. 11/23/21: 13 mm right level 3 node clinically evident on exam. Underwent biopsy and confirmed positive metastatic disease of the thyroid. 12/10/21: Right side neck dissection, 5 nodes-resected. 10/01/23: Neck ultrasound negative for recurrence. 10/29/23: Last visit with thyroid Oncology, continues on levothyroxine 125 mcg daily with a goal TSHof around 0.1. 12/06/23: Patient presented to her local ER in [facility] with 2-3 weeks of progressive abdominal pain and malaise. CT imaging revealed suspected sigmoid diverticulitis with 2 areas of localized perforation. Several subcentimeter pulmonary nodules were also noted, many of which has been followed previously given her smoking history, the largest was a right lower lobe lesion 7 mm in size ofthe cavitary nature. There was some nodularity to the liver but no discrete lesions. There was alsoan area of thickening and inflammatory changes noted in the mid transverse colon on CT. 12/12/23: Patient went to the operating room for colectomy for presumed sigmoid diverticulitis. Intraoperatively sigmoid diverticulitis with diverticular abscess was noted with inflammatory response in the left lower quadrant and adhesions from the omentum. Flexible sigmoidoscopy performed at the time was not able to pass said adhesions and so only the distal colon was examined. Patient underwent sigmoid colectomy with final pathology showing invasive adenocarcinoma moderately to poorly differentiated, 2.8 cm primary tumor with invasion into the pericolic fat, lymphovascular invasion present, perineural invasion present, 21 lymph nodes examined all negative for tumor final pathologic stagingT3, N0. MMR intact by IHC. 01/15/24: Initial med-onc consultation. Consented for FOLFOX. Papillary microcarcinoma of thyroid (CMS/HCC) 09/09/2019 Cancer Staged Staging form: Thyroid - Differentiated, AJCC 8th Edition, Clinical stage from 09/09/2019: Stage I (cT1a, cN1b, cM0, Age at diagnosis: < 55 years) - Signed by Jean Mak MD on 11/04/2021 09/09/2019 Surgery total thyroidectomy with central, left, and right neck dissection [facility]. Dr. Zelalem Lazar. Path: 10 lymph nodes involving left, right, and central neck were found to be positive, with largest node 1.5 cm. 10/2019 - 11/19/2019 Radiation Therapy I131: 128.8 miCu residual uptake in the anterior neck therapeutic treatment. 09/04/2021 Imaging 06/2021 Pt notes new right level 3 anterior neck mass 09/04/21 Dr. Cristian Griffith performed ultrasound FNA of 15mm cystic neck mass in the right neck. [facility] Path: follicular cells in a background of colloid and macrophages. [facility] read highly suspicious for PTC. 11/23/2021 - Radiation Therapy I 131 scan. NO tracer in neck at all, No distant disease, no formal therapy after scan with 5 mCu Disease is non I131 avid MRI scan only tumor seen is level [address] chest. 4mm middle and lower lobe nodules. NO LAD. Colon cancer (CMS/HCC) 01/15/2024 Initial Diagnosis Colon cancer (CMS/HCC) 02/05/2024 - 04/17/2024 Chemotherapy leucovorin (Wellcovorin) 656 mg in dextrose 5 % 100 mL IVPB, 400 mg/m2 = 656 mg, Intravenous, Once,1 of 1 cycle Administration: 656 mg (02/05/2024) OXALIplatin (Eloxatin) 140 mg in dextrose 5 % 250 mL chemo IVPB, 85 mg/m2 = 140 mg, Intravenous, Once, 3 of 3 cycles Administration: 140 mg (02/05/2024), 140 mg (02/19/2024), 140 mg (03/04/2024), 140 mg (03/18/2024), 140 mg (2024), 140 mg (04/15/2024) fluorouracil (Adrucil) chemo injection 650 mg, 400 mg/m2 = 650 mg, Intravenous, Once, 1 of 1 cycle Administration: 650 mg (02/05/2024) fluorouracil (Adrucil) 3,950 mg in sodium chloride 0.9 % 100 mL chemo infusion - for home use, 2,400 mg/m2 = 3,950 mg, Intravenous, Over 46 hours, 3 of 3 cycles Administration: 3,950 mg (02/05/2024), 3,950 mg (02/19/2024), 3,950 mg (03/04/2024), 3,950 mg (03/18/2024), 3,950 mg (2024), 3,950 mg (04/15/2024) Past medical history: Past Medical History: Diagnosis Date Anemia When i was in low grade school 1-4 Arthritis Colon cancer (CMS/HCC) Colon cancer (CMS/HCC) COPD (chronic obstructive pulmonary disease) (CMS/HCC) Cyst of uterus DDD (degenerative disc disease), cervical 01/21/2024 Dental disease 01/21/2024 full upper plate. 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 Hyperlipidemia Hypothyroidism IV drug abuse Left breast mass 7 mm Lung cancer (CMS/HCC) Nicotine addiction Ovarian cyst Traumatic subdural hematoma (CMS/HCC) 12/2019 with left nasal bone fracture Family history: Family History Problem Relation Name Age of Onset Lung cancer Mother Zara Cárdenas Hypercholesterolemia Mother Zara Cárdenas Hypertension Mother Zara Cárdenas Hypertension Father Brian Serrano Hypercholesterolemia Father Brian Serrano Thyroid disease Father Brian Serrano Thyroid cancer Neg Hx Malig Hyperthermia Neg Hx Social history: Social History Socioeconomic History Marital status: Spouse name: Gal Manuel Number of children: 4 Years of education: Not on file Highest education level: Associate degree: academic program Occupational History Occupation: Unemployed 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 Tobacco Use Smoking status: Every Day Current packs/day: 1.00 Average packs/day: 1 pack/day for 32.1 years (32.1 ttl pk-yrs) Types: Cigarettes Start date: 03/31/1994 Passive exposure: Current Smokeless tobacco: Never Tobacco comments: Vaping Vaping Use Vaping status: Former Start date: 03/31/2021 Substances: Nicotine, Flavoring Devices: Refillable tank Substance and Sexual Activity Alcohol use: Yes Alcohol/week: 2.0 standard drinks of alcohol Types: 2 Shots of liquor per week Comment: Occasional Drug use: Not Currently Types: Marijuana Comment: 01/21/24 no use for last 2 months Sexual activity: Not Currently Partners: Male control/protection: Female Sterilization Comment: Tubes tied Other Topics Concern Occupational Exposure No Social History Narrative Not on file Social Drivers of Health Financial Resource Strain: Not on file Food Insecurity: Not on file Transportation Needs: Not on file Physical Activity: Not on file Stress: Not on file Social Connections: Not on file Intimate Partner Violence: Not on file Housing Stability: Not on file Objective Medications: Reviewed and updated in this Epic encounter Vitals: 09/23/24 1101 BP: 108/76 Pulse: 82 Resp: 16 Temp: 36.6 ??C (97.9 ??F) SpO2: 95% Physical exam: Physical Exam Constitutional: General: She is not in acute distress. HENT: Head: Normocephalic and atraumatic. Mouth/Throat: Mouth: Mucous membranes are moist. Pharynx: Oropharynx is clear. Eyes: General: No scleral icterus. Pupils: Pupils are equal, round, and reactive to light. Cardiovascular: Rate and Rhythm: Normal rate and regular rhythm. Heart sounds: No murmur heard. Pulmonary: Effort: Pulmonary effort is normal. No respiratory distress. Breath sounds: No wheezing. Chest: Chest wall: No tenderness. Abdominal: Tenderness: There is no abdominal tenderness. There is no guarding. Musculoskeletal: General: No swelling or deformity. Skin: General: Skin is warm and dry. Comments: R chest port site clean, no erythema or induration Neurological: General: No focal deficit present. Mental Status: She is alert and oriented to person, place, and time. Psychiatric: Mood and Affect: Mood normal. Behavior: Behavior normal. Radiology: Reports of recent scans 09/24/24 reviewed by me personally with findings as described above in the onc history and below in the assessment. Laboratory studies: Recent laboratory studies reviewed by me personally. Normal CBC & CMP. Assessment and Plan Adenocarcinoma of the sigmoid colon Stage: IIA - pT3, pN0, cM0 Pathologic/genetic features: Perforation, lymphovascular and perineural invasion present. MMR intact. Next generation sequencing not obtained at this time given presumed early stage disease. Treatment history: Sigmoid colectomy 12/12/2023 FOLFOX 02/05/24 - 04/15/24 Cancer management: 43-year-old female with recent diagnosis of adenocarcinoma of the sigmoid colon status post colectomy with negative lymph nodes. No clear evidence of metastatic disease on CT scan of the chest abdomen and pelvis, though she does have several small subcentimeter pulmonary nodules, some of which havebeen stable for quite some time and has been serially monitored given her smoking and thyroid cancer history, the of the smaller lesions were reported to be new. The largest lesion is 7 mm and cavitary in nature, personal review of prior CT scans of the chest reveals that this lesion was there backin October and roughly 6 mm in size. These lesions are too small to further characterize reliably via PET scan. We discussed briefly with thoracic surgery who noted that none of them are at present safely amenable to biopsy or wedge resection. We will opt to monitor these very closely for the time being and we will still consider her disease localized. It was also noteworthy that her CT scan in November did note an area of colonic thickening and inflammatory changes in the mid transverse colon that was not visualized on intraoperative colonoscopy due to difficulty passing inflammatory adhesions in the left lower quadrant of the abdomen. Overall, Ms. Finnegan has stage II A disease based on present data. We discussed that the benefit ofadjuvant chemotherapy is unclear in this setting for all comers, however in her particular situation, I believe she is of particularly high-risk for disease recurrence given the high-risk pathologic features noted above, lack of complete evaluation of the colon, unclear nature of small pulmonary lesions, personal history of thyroid cancer, and ongoing tobacco use. After discussing this with the patient we agreed it would be best to pursue adjuvant chemotherapy to lessen her risk of recurrence and she was consented for adjuvant FOLFOX and completed 3 months of treatment in March 2024. She returned today for repeat surveillance imaging with special attention to the pulmonary nodules of unclear etiology. The majority of her lung nodules remain stable, a few have subtly increased in size, the largest from 3 to 6 mm. Abdomen and pelvis showed no evidence of metastatic disease. We discussed these findings and will continue with surveillance with clinic visit and repeat imaging in 3 months. 2. Tobacco use - Complicates care currently given now her 2nd cancer. Discussed cessation, she was very motivated. Started Chantix. 3. Papillary thyroid cancer - pT1, N1, M0 Previously followed with Dr. Rhodes, now Dr. Coon, status post thyroidectomy and neck dissection followed by radioactive iodine with recurrence in 2021 followed by repeat right neck dissection, most recent ultrasound and thyroid studies showing no evidence ofdisease recurrence. Continues on levothyroxine. 4. Chemotherapy induced nausea and vomiting - resolved after treatment 5. Atypical Chest pain Port malfunction - resolved, CT angio previously ordered and negative. No evidence of port related DVT Patient was seen and examined with attending physician, Dr. Means, who assisted with formulation of the plan as described. Moris Valenet MD Fellow, Hematology and Oncology I, Caroline Means MD, saw and evaluated the patient. I discussed the case with the medical student and resident/fellow and agree with the findings and plan as documented. I personally performed the Exam and Medical Decision Making. documented in this encounter Plan of Treatment Upcoming Encounters Date Type Department Care Team (Late st Contact Info) Description 12/23/2024 11:00 AM EDT Office Visit [facility] [address] [place] [phone] Edison Skaggs MD [address] [place] [address] 12/23/2024 11:00 AM EDT Clinical Support [facility] [address] [place] [phone] 12/23/2024 2:00 PM EDT Office Visit [facility] [address] [place] [phone] Radha Montelongo D, BILINGUAL ACCOUNT MANAGER [address] [facility] [address] [place] [phone] 12/29/2024 1:00 PM EDT Clinical Support [facility] [address] [facility]nd [place] [phone] 12/29/2024 1:30 PM EDT Office Visit [facility] [address] [place] [address], [address] [place] [phone] Danny Coon MD [address] [facility] [address] [place] [phone] documented as of this encounter Results * (ABNORMAL) CEA (10/06/2024 11:21 AM EDT) CEA, Serum 21.9(H) <4.0 ng/mL 10/06/2024 1:00 PM EDT [facility] Blood Venous blood specimen / Unknown Venipuncture / Unknown 10/06/2024 11:21 AM EDT 10/06/2024 11:32 AM EDT Narrative [facility] - 10/06/2024 1:00 PM EDT Normal range for smokers: < 5.5 ng/ml Normal range for non-smokers: <=4.0 ng/ml Performed by [employer] electrochemiluminescent immunoassay. Results obtained with different test methods or kits cannot be used interchangeably. us Caroline Means MD LAB BLOOD ORDERABLES Final Resul t [facility] [address] [place] [address] * (ABNORMAL) Comprehensive metabolic panel (09/23/2024 10:34 AM EDT) Glucose, Plasma 83 74 - 99 mg/dL 09/23/2024 11:35 AM EDT [facility] BUN, Plasma 16 7 - 21 mg/dL 09/23/2024 11:35 AM EDT [facility] Creatinine, Plasma 0.79 0.60 - 1.10 mg/dL 09/23/2024 11:35 AM EDT [facility] BUN/Creatinine Ratio 20 09/23/2024 11:35 AM EDT [facility] Sodium, Plasma 140 136 - 145 mmol/L 09/23/2024 11:35 AM EDT [facility] Potassium, Plasma 4.1 3.6 - 4.9 mmol/L 09/23/2024 11:35 AM EDT [facility] Chloride, Plasma 100 97 - 107 mmol/L 09/23/2024 11:35 AM EDT [facility] CO2, Plasma 27 22 - 29 mmol/L 09/23/2024 11:35 AM EDT [facility] Anion Gap 13 6 - 16 mmol/L 09/23/2024 11:35 AM EDT [facility] Total Calcium, Plasma 8.8(L) 8.9 - 10.2 mg/dL 09/23/2024 11:35 AM EDT [facility] Total Protein 7.0 6.3 - 7.9 g/dL 09/23/2024 11:35 AM EDT [facility] Albumin, Plasma 4.2 3.5 - 5.2 g/dL 09/23/2024 11:35 AM EDT [facility] AST, Plasma 29 10 - 35 U/L 09/23/2024 11:35 AM EDT [facility] ALT, Plasma 26 10 - 35 U/L 09/23/2024 11:35 AM EDT [facility] Alkaline Phosphatase, Plasma 151(H) 35 - 104 U/L 09/23/2024 11:35 AM EDT [facility] Total Bilirubin, Plasma 0.3 0.2 - 1.1 mg/dL 09/23/2024 11:35 AM EDT [facility] eGFRcr 93.6 mL/min/1.7 3m*2 09/23/2024 11:35 AM EDT [facility] Comment:Reported eGFRcr in m L/min/1.73m2 is based the CKD-EPI 2020 equation that does not use a race coefficient. Blood Venous blood specimen / Unknown Venipuncture / Unknown 09/23/2024 10:34 AM EDT 09/23/2024 10:56 AM EDT us Caroline Means MD LAB BLOOD ORDERABLES Final Resul t [facility] [address] [place] [address] * (ABNORMAL) CBC and Differential (09/23/2024 10:34 AM EDT) WBC Count 8.04 3.70 - 10.30 10*3/uL LAB HEMATOLOGY METHOD 09/23/2024 11:11 AM EDT [facility] RBC Count 4.50 3.90 - 5.20 10*6/uL LAB HEMATOLOGY METHOD 09/23/2024 11:11 AM EDT [facility] HGB 12.8 11.2 - 15.7 g/dL LAB HEMATOLOGY METHOD 09/23/2024 11:11 AM EDT [facility] HCT 40.1 34.0 - 45.0 % LAB HEMATOLOGY METHOD 09/23/2024 11:11 AM EDT [facility] Platelet Count 266 155 - 369 10*3/uL LAB HEMATOLOGY METHOD 09/23/2024 11:11 AM EDT [facility] MCV 89 79 - 98 fL LAB HEMATOLOGY METHOD 09/23/2024 11:11 AM EDT [facility] MCH 28.4 26.0 - 32.0 pg LAB HEMATOLOGY METHOD 09/23/2024 11:11 AM EDT [facility] MCHC 31.9 30.7 - 35.5 g/dL LAB HEMATOLOGY METHOD 09/23/2024 11:11 AM EDT [facility] RDW 16.7(H) 11.5 - 14.5 % LAB HEMATOLOGY METHOD 09/23/2024 11:11 AM EDT [facility] MPV 9.3 8.8 - 12.5 fL LAB HEMATOLOGY METHOD 09/23/2024 11:11 AM EDT [facility] nRBC 0.0 <=0.0 per 100 WBCs LAB HEMATOLOGY METHOD 09/23/2024 11:11 AM EDT [facility] Differential Type Automated LAB HEMATOLOGY METHOD 09/23/2024 11:11 AM EDT [facility] Neutrophils % 55 % LAB HEMATOLOGY METHOD 09/23/2024 11:11 AM EDT [facility] Lymphocytes % 29 % LAB HEMATOLOGY METHOD 09/23/2024 11:11 AM EDT [facility] Monocytes % 9 % LAB HEMATOLOGY METHOD 09/23/2024 11:11 AM EDT [facility] Eosinophils % 6 % LAB HEMATOLOGY METHOD 09/23/2024 11:11 AM EDT [facility] Basophils % 1 % LAB HEMATOLOGY METHOD 09/23/2024 11:11 AM EDT [facility] Immature Granulocytes % 0 % LAB HEMATOLOGY METHOD 09/23/2024 11:11 AM EDT [facility] Neutrophils Absolute 4.45 1.60 - 6.10 10*3/uL LAB HEMATOLOGY METHOD 09/23/2024 11:11 AM EDT [facility] Lymphocytes Absolute 2.30 1.20 - 3.90 10*3/uL LAB HEMATOLOGY METHOD 09/23/2024 11:11 AM EDT [facility] Monocytes Absolute 0.73 0.30 - 0.90 10*3/uL LAB HEMATOLOGY METHOD 09/23/2024 11:11 AM EDT [facility] Eosinophils Absolute 0.50 0.00 - 0.50 10*3/uL LAB HEMATOLOGY METHOD 09/23/2024 11:11 AM EDT [facility] Basophils Absolute 0.05 0.00 - 0.10 10*3/uL LAB HEMATOLOGY METHOD 09/23/2024 11:11 AM EDT [facility] Immature Granulocytes Absolute 0.01 0.00 - 0.06 10*3/uL LAB HEMATOLOGY METHOD 09/23/2024 11:11 AM EDT [facility] Blood Venous blood specimen / Unknown Venipuncture / Unknown 09/23/2024 10:34 AM EDT 09/23/2024 10:59 AM EDT Narrative [facility] - 09/23/2024 11:11 AM EDT Therapeutic decision making should be based on absolute values, rather than percentages. us Caroline Means MD LAB BLOOD ORDERABLES Final Resul t [facility] [address] [place] [address] documented in this encounter Visit Diagnoses Diagnosis Malignant neoplasm of sigmoid colon (CMS/HCC)- Primary Malignant neoplasm of sigmoid colon Encounter for follow-up surveillance of colon cancer documented in this encounter Additional Health Concerns Assessment Noted Time PHQ-9 Depression Total Score: 0 06/22/19 25 1:53 PM EDT A fall risk assessment has been complete d for the patient 09/23/2024 11:05 AM EDT A Body Mass Index follow-up plan has been documented for the patient 06/23/2024 9:55 AM EDT documented as of this encounter Care Teams English Faculty Member Relationship Specialty Start Date End Date Sergey Oh MD PCP - General 11/13/21 Jean Mak MD [address] [facility] [address] [place] [phone] Surgeon Otolaryngology 11/21/21 documented as of this encounter
--- OUTSIDE RECORDS SUMMARY | 2024-09-29 10:59 | XMS_ITS | Encounter Summary ---
Author Organization Healthcare Address [address] [place] [address] Care Team Providers Care County Health Officer Name Role Phone Sergey Oh MD Primary Care Provider Jean Mak MD Unavailable [phone] Reason for Referral * Imaging (Routine) - Closed Specialty Diagnoses / Procedures Referred By Contac delio Referred To Contact Radiology Diagnoses Chronic viral hepatitis B without delta agent and without coma (CMS/HCC) Procedures US Liver Screen Radha Montelongo, SLED MAKER [address] [address] Phone: tel: fax: Referral ID Status Reason Start Date Expiration Date Visits Re quested Visits Authorized [id number] Closed 06/21/2024 12/21/2025 1 1 Reason for Visit * Imaging (Routine) - Closed Specialty Diagnoses / Procedures Referred By Contsarah kebede Referred To Contact Radiology Diagnoses Chronic viral hepatitis B without delta agent and without coma (CMS/HCC) Procedures US Liver Screen Radha Montelongo, SLED MAKER [address] [address] Phone: tel: fax: Referral ID Status Reason Start Date Expiration Date Visits Re quested Visits Authorized [id number] Closed 06/21/2024 12/21/2025 1 1 Encounter Details Date Type Department Care Team (Latest Contact Info) Description 09/29/2024 10:59 AM EDT - 09/29/2024 11:59 PM EDT Hospital Encounter [facility] Radiology [address] [place] [address] Chronic viral hepatitis B without delta agent and without coma (CMS/HCC) Discharge Disposition: Home or Self Care [...] on file documented as of this encounter Medications at Time of Discharge albuterol 108 (90 Base) MCG/ACT inhaler INHALE 2 PUFFS BY MOUTH FOUR TIMES DAILY NEEDED FOR SHORTNESS OF BREATH OR WHEEZING 4 cyclobenzaprine (Flexeril) 10 MG tablet Take 1 tablet (10 mg) by mouth 3 (three) times a day if needed for muscle spasms. ergocalciferol (Drisdol) 1.25 MG (03329 UT) capsule Take 1 capsule (50,000 Units) by mouth 1 (one) time per week. 12 capsule 3 4 HYDROcodone-acetami nophen ([place]) 7.5-325 MG tablet TAKE ONE (1) TABLET [...] mg) by mouth daily. 30 tablet 11 5 06/22/19 26 levothyroxine (Synthroid, Levoxyl) 125 MCG tablet Take 1 tablet by mouth daily. 30 tablet 5 10/07/19 25 documented as of this encounter Plan of Treatment Upcoming Encounters Date Type Department Care Team (Late st Contact Info) Description 12/23/2024 11:00 AM EDT Office Visit [facility] Multidisciplinary Oncology Clinic [address] [place] [phone] Edison Skaggs MD [address] [place] [address] 12/23/2024 11:00 AM EDT Clinical Support [facility] Multidisciplinary Oncology Clinic [address] [place] [phone] 12/23/2024 2:00 PM EDT Office Visit [facility] Medicine Specialties [address] [place] [address] Radha Montelongo D, SLED MAKER [address] [place] [address] 12/29/2024 1:00 PM EDT Clinical Support [facility] [address] [facility], 2nd [place] [address] 12/29/2024 1:30 PM EDT Office Visit [facility] [address] [facility], [address]nd [place] [address] Danny Coon MD [address] [place] [address] documented as of this encounter Procedures Procedure Name Priority Date/Time Associated Diagnosis Comments US LIVER SCREEN Routine 09/29/2024 11:29 AM EDT Chronic viral hepatitis B without delta agent and without coma (CMS/HCC) documented in this encounter Results * US Liver Screen (09/29/2024 11:29 AM EDT) Anatomical Region Laterality Modality Abdomen, Liver Ultrasound Impressions 09/29/2024 1:12 PM EDT Morphologic changes of chronic liver disease. No sonographically detectable hepatic lesion. No splenomegaly or ascites. Category Score US-1 Negative. No US evidence of HCC. No observation or Only definitely benign observation(s). Continue with regular screening. Visualization Score Vis B. Moderate limitations. Limitations may obscure small masses. The above scoring system and recommendations are based on Ultrasound LI-RADS version 2017. [email or web address]/-/[email or web address] CRITICAL RESULT: No. COMMUNICATION: Per this written report. Drafted by Dilan Ruiz MD on 09/29/2024 1:09 PM Final report signed by Dilan Ruiz MD on 09/29/2024 1:12 PM Narrative 09/29/2024 1:12 PM EDT CLINICAL INDICATION: hcc screening TECHNIQUE: Multiplanar static and cine randle scale ultrasound images of the abdomen were obtained, accompanied by selective color Doppler ultrasound images. COMPARISON: CT dated 09/23/2024 FINDINGS: Grayscale: Liver: The liver is coarse and heterogenous consistent with parenchymal disease. This limits the visualization of focal lesions though no focal lesions are detected. Few tiny echogenic foci which may represent calcific granulomas. Portal Vein: There is antegrade flow within the main portal vein. Gallbladder: The gallbladder is absent Common Duct: 6 mm Spleen: The spleen is normal in size measuring 9.4 cm. Echogenic foci favored to represent costal granulomas. Free Fluid: There is no ascites Other: N/A Procedure Note Dilan Ruiz MD - 09/29/2024 CLINICAL INDICATION: hcc screening TECHNIQUE: Multiplanar static and cine randle scale ultrasound images of the abdomenwere obtained, accompanied by selective color Doppler ultrasound images. COMPARISON: CT dated 09/23/2024 FINDINGS: Grayscale: Liver: The liver is coarse and heterogenous consistent with parenchymaldisease. This limits the visualization of focal lesions though no focallesions are detected. Few tiny echogenic foci which may represent calcificgranulomas. Portal Vein: There is antegrade flow within the main portal vein. Gallbladder: The gallbladder is absent Common Duct: 6 mm Spleen: The spleen is normal in size measuring 9.4 cm. Echogenic focifavored to represent costal granulomas. Free Fluid: There is no ascites Other: N/A IMPRESSION: Morphologic changes of chronic liver disease. No sonographicallydetectable hepatic lesion. No splenomegaly or ascites. Category Score US-1 Negative. No US evidence of HCC. No observation orOnly definitely benign observation(s). Continue with regular screening. Visualization Score Vis B. Moderate limitations. Limitations may obscuresmall masses. The above scoring system and recommendations are based on UltrasoundLI-RADS version 2017. [email or web address]/-/[email or web address] CRITICAL RESULT: No. COMMUNICATION: Per this written report. Drafted by Dilan Ruiz MD on 09/29/2024 1:09 PM Final report signed by Dilan Ruiz MD on 09/29/2024 1:12 PM us Radha Montelongo SLED MAKER IMG US PROCEDURES Final Re sult documented in this encounter Visit Diagnoses Diagnosis Chronic viral hepatitis B without delta agent and without coma (CMS/HCC) documented in this encounter Additional Health Concerns Assessment Noted Time PHQ-9 Depression Total Score: 0 06/22/19 25 1:53 PM EDT A fall risk assessment has been complete d for the patient 09/23/2024 11:05 AM EDT A Body Mass Index follow-up plan has been documented for the patient 06/23/2024 9:55 AM EDT documented as of this encounter Care Teams County Health Officer Relationship Specialty Start Date End Date Sergey Oh MD PCP - General 11/13/21 Jean Mak MD [address] [place] [address] [address] Surgeon Otolaryngology 11/21/21 documented as of this encounter
--- OUTSIDE RECORDS SUMMARY | 2024-10-06 10:00 | XMS_ITS | Encounter Summary ---
Author Organization [facility] Address [address] 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); Multiple lung nodules on CT; Post-surgical hypothyroidism; Vasomotor symptoms due to menopause; Vitamin D deficiency Social History Tobacco Use Types Packs/Day Years [...] 3:22 PM EST Sexual Orientation Straight 02/19/2022 3 :22 PM EST Occupation Industry Job Start Date Job End Date Unemployed Not on file Not on file 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 Not on file Not on file Not on file documented as of this encounter Last Filed Vital Signs Vital Sign Reading Time Taken Comments Blood Pressure 101/76 10/06/2024 10:02 AM EDT Pulse 94 10/06/2024 10:02 AM EDT Temperature 36.6 C (97.9 F) 10/06/2024 10:02 AM EDT Respiratory Rate 16 10/06/2024 10:0 2 AM EDT Oxygen Saturation 96% 10/06/2024 10: 02 AM EDT Inhaled Oxygen Concentration - - Weight 68.9 kg (151 lb 14.4 oz) 025 10:02 AM EDT Height 157.5 cm (5' 2 ) 10/06/2024 10:0 2 AM EDT Body Mass Index 27.78 10/06/2024 10:02 AM EDT documented in this encounter Miscellaneous Notes * Progress Notes - Danny Coon MD - 10/06/2024 10:00 AM EDT Reason for visit: Follow-up on Hypothyroidism and Thyroid cancer. Thyroid Related Surgeries: Date: 09/09/2019, [facility], [place], [place]. Type: Total Thyroidectomy Node Resection: Left Modified, Right Modified, and Central Neck Pathology Description: Pathology is reported as showing bilateral, multifocal papillary thyroid microcarcinoma (foci at 4 mm or smaller). All foci were intrathyroidal without vascular or lymphatic invasion and the surgical margins were negative. There were 33 resected bilateral cervical lymph nodesand 10 contained metastases. Positive nodes were seen in right levels 2a to 6 and left levels 3 to 5, with the largest tumor deposit measuring 1.5 cm and there was no extranodal extension. Pathology Results: Papillary Carcinoma: Typical Type Resection Extent: R0: No residual tumor Complications: Hypocalcemia Thyroid Related Surgeries: Date: 12/10/2021, [facility] Node Resection: Right Modified Pathology Description: Pathology reported that one metastatic right level 3 node was seen out of 5 total right neck nodes resected. Pathology Results: Papillary Carcinoma: Typical Type Resection Extent: R0: No residual tumor Complications: Right jugular vein incised and repaired. Radioiodine Therapy Date: 11/19/2019, [facility], [place], [place]. 131I Therapy Dose (MCi): 128.8 mCi Prep Method Thyrogen:Thyrogen [Thyrogen given days #1&2] and 131I Tx on day 3 Diet: Diet Unknwon Iodine Exposure: Possible Intent: Initial ablative, Thyroglobulin level: Not Done ng/ml, and - TG antibodies Subjective Anita Finnegan is a 44 y.o. female. The Patient's last visit at [facility] was on 06/30/2024. She was diagnosed w/ stage II A colon cancer in 2023. She is S/P colectomy on December 12, 2023 and FOLFOX from 02/05/24 to 04/15/24. I reviewed the office note in [facility] by Dr. Moris Valente / Dr. Caroline Means (Oncology) dated 09/23/24. THE PLAN IS TO CONTINUE SURVEILLANCE. She was counseled about smoking cessation and was prescribed Chantix. She reports swallowing problem sometimes. She denies voice change. There is lump feeling in the posterior L neck which she had since she was 7 yo. There is no perioral numbness / tingling. The patient reports hot flashes and heat intolerance. The patient denies tremulousness and palpitations. The patient is on Levothyroxine (generic) 125 mcg daily. She has a cyst on the R ovary and a fibroid (she was considering having a hysterectomy but this hadto be put off d/t her colon ca DX). She says she has a follow-up scheduled with gynecology. Objective Visit Vitals BP 101/76 (BP Location: Right arm) Pulse 94 Temp 36.6 ??C (97.9 ??F) (Oral) Resp 16 Ht 1.575 m (5' 2 ) Wt 68.9 kg (151 lb 14.4 oz) LMP 04/07/2022 (Approximate) Comment: last period a couple years ago SpO2 96% BMI 27.78 kg/m?? OB Status Postmenopausal Smoking Status Every Day BSA 1.74 m?? 06/30/24 wt 66.9 kg (147 lb 7.8 oz) 01/27/23 Wt 61.4 kg (135 lb 5.8 oz) PE Constitutional: Appearance: not ill-appearing. HENT: NL voice. Eyes: Extraocular Movements: intact. Neck: Thyroidectomy and neck dissection scars. Cardiovascular: Heart Rate: hi-Normal. NL S1 S2. Pulmonary: Effort: Pulmonary effort is normal. No crackles. Musculoskeletal: Right lower leg: No edema. Left lower leg: No edema. Lymphadenopathy: Cervical: No cervical adenopathy. Small knot L posterior neck (had it for yrs). Skin: Warm. Neurological: Mental Status: alert. No tremor. Tests Reviewed Lab Results Component Value Date TSH 0.08 (L) 09/23/2024 FREET4 1.6 09/23/2024 WBC 8.04 09/23/2024 HGB 12.8 09/23/2024 HCT 40.1 09/23/2024 NA 140 09/23/2024 K 4.1 09/23/2024 CREATININE 0.79 09/23/2024 CALCIUM 8.8 (L) 09/23/2024 ALBUMIN 4.2 09/23/2024 AST 29 09/23/2024 ALT 26 09/23/2024 TSH Thyroglobulin Thyroglobulin Antibody 11/02/2021 4.08 11/19/2021 0.30 (L) 11/23/2021 7.66 (H) 1.3 <1.0 01/18/2022 0.28 (L) 0.1 <1.0 04/10/2022 0.08 (L) 0.2 <1.0 01/27/2023 0.20 (L) 05/21/2023 1.88 0.1 <1.0 10/29/2023 17.40 (H) 0.2 <1.0 02/04/2024 0.10 (L) 06/30/2024 0.06 (L) 0.[address] neck w/ IV contrast 09/24/24 Patient is status post total thyroidectomy and [...] lesions. Degenerative changes of the cervical spine. CT Chest w/ IV contrast 09/24/24 Lymph Nodes and Mediastinum: No substantial change in right paratracheal lymph node measures 10 mm (series 4 image 145) and right hilar lymph node measuring 8 mm (series 4 image 169). No new suspicious lymph nodes in the chest. Cardiovascular: The heart is normal in caliber. Thoracic great vessels are patent. Right chest [id number]-[id number]-[id number] with tip in the lower SVC. Lungs [...] A medial left lower lobe pulmonary nodule isunchanged measuring 6 mm (series 3 image 54). Upper lobe predominant emphysematous changes. No pleural effusions or suspicious thickening. Musculoskeletal and Body Wall: No clearly aggressive bone lesions. CT ABDOMEN PELVIS W IV CONTRAST 09/24/24 Solid Abdominal Organs: Contour deformity along the right peripheral liver with presumed surgical clips consistent with prior wedge resection. No discrete liver lesion detected. Cholecystectomy. Splenic granulomas in otherwise unremarkable spleen. No intra or extrahepatic biliary ductal dilatation.Homogeneous enhancement of the pancreas. No contour deforming [...] or suspicious findings. Small supraumbilical fat-containing hernia. 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 This was followed by a 128.8 mCi I-131 ablationshowing only thyroid bed activity (thyroglobulin not obtained, Thyrogen preparation). The patient was subsequently non-compliant with levothyroxine and sustained a prolonged period of hypothyroidism prior to noting a palpable right neck metastatic lymph node in mid-2021. She was first seen in this clinic on 11/14/21. The patient underwent a Thyrogen-prepped 5 mCi I-131 scanning and thyroglobulin assessment on 11/23/21 demonstrating the absence of iodine avidity in the 13 mm right level 3 metastati c node evident on neck examination and verified positive by biopsy (stimulated thyroglobulin 1.3 ng/mL). The patient underwent a right neck dissection on 12/10/21 and Pathology reported that one metastatic right level 3 node was seen out of 5 total right neck nodes resected. Structural imaging studies have been monitored. Neck ultrasound on 04/03/22 denoted an enlarged left neck node that proved to be benign lymphoid tissue on biopsy. Last neck US on 10/29/23 was reported (-) for recurrence. Neck CT with IV contrast in 08/2024 reported no soft tissue at the thyroidectomy bed. No enlarged lymph nodes. A non-contrast Chest CT on 11/21/21 revealed a 4 mm lung nodule in the right middle lobe and the right lower lobe that were iodine non-avid on the I-131 scan and stable on a 03/13/[address] However, a new tiny nodule versus soft tissue surrounding the bronchus of the right apex was reported on CTof chest on 03/13/22. Chest CT on 11/03/23 showed a new RLL nodule. Chest CT on 06/24/24 showed a new tiny RLL nodule and marginal increase in size of precarinal lymph node. Chest CT in 08/2024 REPORTED mild increase in size and number in bilateral lung nodules compared to prior dated June 24, 2024 concerning for metastatic disease progression. Recommend attention on follow-up. Tg on LT4 0.1-0.2, last 1 in 06/2024, recheck. Lung Nodules: As above. Less likely thyroid cancer related given her thyroglobulin level but will continue to monitor. Hypothyroidism: Her levothyroxine dosage is 125 mcg daily. Goal TSH around 0.1- 0.5. TSH suppressed in 08/2024. She is agreeable to decrease levothyroxine 125 mcg by half tablet weekly and not decrease it to 112 mcg daily. Vasomotor symptoms Decrease levothyroxine as above. Discussed clonidine but the concern is low blood pressure. Will follow-up with Face Worker. D def w/ Osteopenia on DXA 07/03/23: Ensure taking adequate ca and D. She has a h/o D def w/ 25OHD 12.8 on 05/21/23 (she was prescribed Ergocalciferol 50k IU wkly x 3 months by Radha Montelongo APRN, [facility]resent a RX in 01/2024). 25 hydroxy vitamin-D 31.9 on 09/23/2024, at goal. She also has a h/o borderline low serum calcium. RTC: 3 months. Tests ordered: Tg TSH and Free T4 3 months. Thyroglobulin today. Electronically signed by: Danny Coon MD [facility] [address] [place] [address]. [address] [place]. [address] PHONE [phone] FAX: [phone] documented in this encounter Plan of Treatment Upcoming Encounters Date Type Department Care Team (Late st Contact Info) Description 12/23/2024 11:00 AM EDT Office Visit [facility] Multidisciplinary Oncology Clinic [address] [place] [address] Edison Skaggs MD [address] [place] [address] 12/23/2024 11:00 AM EDT Clinical Support [facility] Multidisciplinary Oncology Clinic [address] [place] [address] 12/23/2024 2:00 PM EDT Office Visit [facility] Medicine Specialties [address], [address] [place] [phone] Jayda Radha D, DRIFT MINER [address] [place] [address] 12/29/2024 1:00 PM EDT Clinical Support [facility] [address] [facility], [address] [place] [address] 12/29/2024 1:30 PM EDT Office Visit [facility] [address] [facility], [address] [place] [address] Danny Coon MD [address] [facility] [address] [place] [address] Scheduled Orders Name Type Priority Associated Diagnoses Orde r Schedule Free T4, Plasma Lab Routine Post-surgical hypothyroidism Expected: 12/29/2024 (Approximate), Expires: 04/13/2026 Thyroid Stimulating Hormone, Plasma Lab Routine Post-surgical hypothyroidism Expected: 12/29/2024 (Approximate), Expires: 04/13/2026 Thyroglobulin Antibody and Thyroglobulin (MARIA TERESA or LC-MSMS) Lab Routine 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) Expected: 12/29/2024 (Approximate), Expires: 04/13/2026 documented as of this encounter Results * Thyroglobulin Antibody and Thyroglobulin (MARIA TERESA or LC-MSMS) (10/06/2024 11:21 AM EDT) Thyroglobulin Antibody <1.0 <4.0 IU/mL 10/06/2024 12:51 PM EDT [facility] Blood Venous blood specimen / Unknown Venipuncture / Unknown 10/06/2024 11:21 AM EDT 10/06/2024 11:32 AM EDT us Danny Coon MD LAB BLOOD ORDERABLES Final Resu lt [facility] [address] [place] [address] documented in this encounter Visit Diagnoses Diagnosis 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)- Primary Multiple lung nodules on CT Post-surgical hypothyroidism Postsurgical hypothyroidism Vasomotor symptoms due to menopause Vitamin D deficiency documented in this encounter Additional Health Concerns Assessment Noted Time PHQ-9 Depression Total Score: 0 06/22/19 25 1:53 PM EDT A fall risk assessment has been complete d for the patient 10/06/2024 10:03 AM EDT A Body Mass Index follow-up plan has been documented for the patient 06/23/2024 9:55 AM EDT documented as of this encounter Care Teams Service Secretary Relationship Specialty Start Date End Date Sergey Oh MD PCP - General 11/13/21 Jean Mak MD [address] [facility] Cancer [address] [address] Surgeon Otolaryngology 11/21/21 documented as of this encounter
--- OUTSIDE RECORDS SUMMARY | 2024-10-06 11:15 | XMS_ITS | Encounter Summary ---
Author Organization Healthcare Address [address] [place] [address] Care Team Providers Care Rug Hooker Name Role Phone Sergey Oh MD Primary Care Provider [phone] Jean Mak MD Unavailable [phone] Reason for Visit * Reason Comments Labs Peripheral stick [place] Encounter Details Date Type Department Care Team (Latest Contact Info) Description 10/06/2024 11:15 AM EDT Clinical Support [facility] [address], [address]nd [place] [address] Papillary microcarcinoma of thyroid (CMS/HCC); Malignant neoplasm of sigmoid colon (CMS/HCC) Social [...] Upcoming Encounters Date Type Department Care Team ([facility] st Contact Info) Description 12/23/2024 11:00 AM EDT Office Visit [facility] [address] [place] [phone] Edison Skaggs MD 800 [place] [address] 12/23/2024 11:00 AM EDT Clinical Support [facility] [address] [place] [phone] 12/23/2024 2:00 PM EDT Office Visit [facility] Medicine Specialties [address], 2nd [place] [address] Radha Montelongo D, TRAVEL COUNSELOR [address] [facility] [address] [place] [address] 12/29/2024 1:00 PM EDT Clinical Support [facility] [address] [place] [phone] 12/29/2024 1:30 PM EDT Office Visit [facility] [address] [place] [phone] Danny Coon MD 2195 [facility] 125 [place] [address] documented as of this encounter Procedures Procedure Name Priority Date/Time Associated Diagnosis Comments THYROGLOBULIN ANTIBODY AND THYROGLOBULIN (MARIA TERESA OR LC-MSMS) Routine 10/06/2024 11:21 AM EDT Papillary microcarcinoma of thyroid (CMS/HCC) THYROGLOBULIN (INHOUSE- REFLEX ONLY) Routine 10/06/2024 11:21 AM EDT Papillary microcarcinoma of thyroid (CMS/HCC) CEA, SERUM Routine 10/06/2024 11:21 AM EDT Malignant neoplasm of sigmoid colon (CMS/HCC) documented in this encounter Results * Thyroglobulin (10/06/2024 11:21 AM EDT) Thyroglobulin (Inhouse) 0.1 <=31.8 ng/mL 10/06/2024 1:32 PM EDT [facility] Blood Venous blood specimen / Unknown Venipuncture / Unknown 10/06/2024 11:21 AM EDT 10/06/2024 11:32 AM EDT Narrative [facility] - 10/06/2024 1:32 PM EDT Performed by Fransico Fairview 2nd generation TG chemiluminescent immunoassay. Results obtained with different test methods or kits cannot be used interchangeably. us Danny Coon MD LAB BLOOD ORDERABLES Final Resu lt Performing Organization Address City/[facility]/ZIP Co de Phone Number [facility] [address] [place] [address] * (ABNORMAL) CEA (10/06/2024 11:21 AM EDT) CEA, Serum 21.9(H) <4.0 ng/mL 10/06/2024 1:00 PM EDT [facility] Blood Venous blood specimen / Unknown Venipuncture / Unknown 10/06/2024 11:21 AM EDT 10/06/2024 11:32 AM EDT Narrative [facility] - 10/06/2024 1:00 PM EDT Normal range for smokers: < 5.5 ng/ml Normal range for non-smokers: <=4.0 ng/ml Performed by Brendon electrochemiluminescent immunoassay. Results obtained with different test methods or kits cannot be used interchangeably. us Caroline Means MD LAB BLOOD ORDERABLES Final Resul t Performing Organization Address City/[facility]/ZIP Co de Phone Number [facility] [address] [place] [address] * Thyroglobulin Antibody and Thyroglobulin (MARIA TERESA or LC-MSMS) (10/06/2024 11:21 AM EDT) Thyroglobulin Antibody <1.0 <4.0 IU/mL 10/06/2024 12:51 PM EDT [facility] Blood Venous blood specimen / Unknown Venipuncture / Unknown 10/06/2024 11:21 AM EDT 10/06/2024 11:32 AM EDT us Danny Coon MD LAB BLOOD ORDERABLES Final Resu lt [facility] [address] [place] [address] documented in this encounter Visit Diagnoses Diagnosis Papillary microcarcinoma of thyroid (CMS/HCC) Malignant neoplasm of sigmoid colon (CMS/HCC) Malignant [...] documented as of this encounter Care Teams Rug Hooker Relationship Specialty Start Date End Date Sergey Oh MD PCP - General 11/13/21 Jean Mak MD 800 [facility] [place] [facility] [address] [place] [phone] Surgeon Otolaryngology 11/21/21 documented as of this encounter
--- OUTSIDE RECORDS SUMMARY | 2024-11-01 12:28 | XMS_ITS ---
Author Organization [facility] Address [address] [place] [address] Care Team Providers Care Dry Wall Finisher Name Role Phone Sergey Oh MD Primary Care Provider [phone] Jean Mak MD Unavailable [phone] Active Problems Problem Noted Date Diagnosed Date [...] 5-FU (Adrucil) infusion - for home use ([facility] supplied) CADD 100MLfluoroura cil (Adrucil)OXALI platin (Eloxatin) IVPB Therapy Complete Franchesca Delacruz MD 3 of 3 cycles started Lifetime Dose Tracking * Chemical Lifetime Dose Automatic Entry Manual Entr y Fluoro Time 0.053 minutes 0.053 minutes 0 minutes Air Kerma 0.15 mGy 0.15 mGy 0 mGy
--- OUTSIDE RECORDS SUMMARY | 2024-11-01 12:28 | XMS_ITS | Encounter Summary ---
Author Organization Healthcare Address [address] [id number] Care Team Providers Care Power Regulator Name Role Phone Pcp, No Primary Care Provider Sergey Oswald MD Primary Care Provider [phone] Jean Mak MD Unavailable [phone] Encounter Details Date Type Department Care Team (Late Contact Info) Description 06/06/2016 Orders Only External Location [address] [place] [phone] Provider, External Social History Tobacco Use Types [...] Department Care Team (Late Contact Info) Description 12/23/2024 11:00 AM EDT Office Visit [facility] Multidisciplinary Oncology Clinic 800 [place] [phone] Edison Skaggs MD 800 [place] [address] 12/23/2024 11:00 AM EDT Clinical Support [facility] Mult[facility]isciplinary Oncology Clinic 800 [place] [phone] 12/23/2024 2:00 PM EDT Office Visit [place] [facility] [address], 2[address] [place] [address] Radha Montelongo, DYNAMITER [address] [facility] [address] [place] [phone] 12/29/2024 1:00 PM EDT Clinical Support [facility] 800 [facility], 2nd [place] [address] 12/29/2024 1:30 PM EDT Office Visit [facility] 800 [facility], [address] [place] [phone] Danny Coon MD 2195 [facility] [address] [place] [address] documented as of this encounter Procedures Procedure [...] on filedocumented in this encounter Care Teams Power Regulator Relationship Specialty Start Date End Date Pcp, No 800 [place] [address] PCP - General Family Medicine 03/31/21 11/12/21 Sergey Oh MD 800 [place] [address] PCP - General 11/13/21 Jean Mak MD 800 [facility] 2nd [place] [phone] Surgeon Otolaryngology 11/21/21 documented as of this encounter
--- OUTSIDE RECORDS SUMMARY | 2024-11-01 12:28 | XMS_ITS | Encounter Summary ---
Author Organization Healthcare Address [address] [place] [address] Care Team Providers Care Scarfing Machine Operator Name Role Phone Sergey Oh MD Primary Care Provider [phone] Jean Mak MD Unavailable [phone] Encounter Details Date Type Department Care Team (Late st Contact Info) Description 12/06/2023 Orders Only External Location 800 [place] [address] Daryl Pina MD [address] [place] [address] Social History Tobacco Use Types Packs/Day [...] Upcoming Encounters Date Type Department Care Team ([facility] Contact Info) Description 12/23/2024 11:00 AM EDT Office Visit [facility] [address] [place] [phone] Edison Skaggs MD 800 [place] [address] 12/23/2024 11:00 AM EDT Clinical Support [facility] [address] [place] [phone] 12/23/2024 2:00 PM EDT Office Visit [facility] Medicine Specialties [address], 2nd [place] [address] Radha Montelongo D, ACCESS SERVICES ASSISTANT [address] [facility] [address] [place] [address] 12/29/2024 1:00 PM EDT Clinical Support [facility] [address] [address] 12/29/2024 1:30 PM EDT Office Visit [facility] [address] [phone] Danny Coon MD 2195 [facility] 125 [place] [address] documented as of this encounter Procedures Procedure Name Priority Date/Time Associated Diagnosis Comments CT OUTSIDE IMAGES 12/06/2023 6:42 PM EDT documented in this encounter Results * CT OUTSIDE IMAGES (12/06/2023 6:42 PM EDT) Anatomical Region Laterality Modality Computed Tomogra phy 12/06/2023 6:42 PM EDT Daryl Pina MD IMG CT PROCEDURES Final Res ult [...] documented as of this encounter Care Teams Scarfing Machine Operator Relationship Specialty Start Date End Date Sergey Oh MD PCP - General 11/13/21 Jean Mak MD [address] [place] [address] [address] Surgeon Otolaryngology 11/21/21 documented as of this encounter
--- OUTSIDE RECORDS SUMMARY | 2024-11-01 12:28 | XMS_ITS | Encounter Summary ---
Author Organization Healthcare Address [address] [place] [address] Care Team Providers Care Tissue Coordinator Name Role Phone Sergey Oh MD Primary Care Provider [phone] Jean Mak MD Unavailable Encounter Details Date Type Department Care Team (Late st Contact Info) Description 06/22/2024 Results [facility] [place] [facility] [address], [address]nd [place] [address] Radha Montelongo D, CHIEF PROJECTIONIST [address] [place] [address] Social History Tobacco Use Types [...] Hailey Cai documented as of this encounter Plan of Treatment Upcoming Encounters Date Type Department Care Team (Late st Contact Info) Description 12/23/2024 11:00 AM EDT Office Visit [facility] On[facility] Clinic 800 [place] [address] Edison Skaggs MD 800 [place] [address] 12/23/2024 11:00 AM EDT Clinical Support [facility] 800 [place] [address] 12/23/2024 2:00 PM EDT Office Visit [facility] Medicine Specialties [address], 2nd [place] [address] Radha Montelongo, CHIEF PROJECTIONIST [address] [place] [address] 12/29/2024 1:00 PM EDT Clinical Support [facility] 800 [facility], 2nd [place] [phone] 12/29/2024 1:30 PM EDT Office Visit [facility] 800 [facility], 2nd [place] [phone] Danny Coon MD [address] [place] [address] documented as of this encounter Visit Diagnoses [...] documented as of this encounter Care Teams Tissue Coordinator Relationship Specialty Start Date End Date Sergey Oh MD PCP - General 11/13/21 Jean Mak MD 800 [facility] 2nd [place] [address] Surgeon Otolaryngology 11/21/21 documented as of this encounter
--- OUTSIDE RECORDS SUMMARY | 2024-11-01 12:28 | XMS_ITS | Encounter Summary ---
Author Organization Healthcare Address [address] [place] [address] Care Team Providers Care Pattern Finisher Name Role Phone Sergey Oh MD Primary Care Provider [phone] Jean Mak MD Unavailable [phone] Encounter Details Date Type Department Care Team (Late st Contact Info) Description 12/06/2023 Orders Only External Location 800 [place] [address] Provider, External Social History Tobacco Use Types [...] Upcoming Encounters Date Type Department Care Team ([facility] st Contact Info) Description 12/23/2024 11:00 AM EDT Office Visit [facility] [address] [place] [phone] Edison Skaggs MD 800 [place] [address] 12/23/2024 11:00 AM EDT Clinical Support [facility] [address] [place] [phone] 12/23/2024 2:00 PM EDT Office Visit [facility] Medicine Specialties [address], 2nd [place] [address] Radha Montelongo D, BEHAVIORAL INSTRUCTOR [address] [facility] [address] [place] [address] 12/29/2024 1:00 PM EDT Clinical Support [facility] [address] [place] [address] 12/29/2024 1:30 PM EDT Office Visit [facility] [address] [place] [phone] Danny Coon MD 2195 [facility] 125 [place] [address] documented as of this encounter Procedures Procedure [...] documented as of this encounter Care Teams Pattern Finisher Relationship Specialty Start Date End Date Sergey Oh MD PCP - General 11/13/21 Jean Mak MD 800 [facility] Cancer [address] [address] Surgeon Otolaryngology 11/21/21 documented as of this encounter
--- OUTSIDE RECORDS SUMMARY | 2024-11-01 12:28 | XMS_ITS | Encounter Summary ---
Author Organization Healthcare Address [address] [id number] Care Team Providers Care Bottle House Quality Control Technician Name Role Phone Pcp, No Primary Care Provider Sergey Oswald MD Primary Care Provider [phone] Jean Mak MD Unavailable [phone] Encounter Details Date Type Department Care Team (Late Contact Info) Description 05/22/2021 Orders Only External Location [address] [place] [phone] Provider, External Social History Tobacco Use Types [...] Description 12/23/2024 11:00 AM EDT Office Visit [facility] Multidisciplinary Oncology Clinic 800 [place] [phone] Edison Skaggs MD 800 [place] [address] 12/23/2024 11:00 AM EDT Clinical Support [facility] Multidisciplinary Oncology Clinic [address] [place] [phone] 12/23/2024 2:00 PM EDT Office Visit [place] [facility] [address], 2nd [place] [address] Radha Montelongo, DINING ROOM HOST/HOSTESS [address] [facility] [address] [place] [address] 12/29/2024 1:00 PM EDT Clinical Support [facility] 800 [facility], 2nd [place] [address] 12/29/2024 1:30 PM EDT Office Visit [facility] 800 [facility], [address] [place] [address] Danny Coon MD 2195 [facility] 125 [place] [address] documented as of this encounter Procedures Procedure [...] on filedocumented in this encounter Care Teams Bottle House Quality Control Technician Relationship Specialty Start Date End Date Pcp, No 800 [place] [address] PCP - General Family Medicine 03/31/21 11/12/21 Sergey Oh MD 800 [place] [address] PCP - General 11/13/21 Jean Mak MD 800 [facility] 2nd [place] [address] Surgeon Otolaryngology 11/21/21 documented as of this encounter
--- OUTSIDE RECORDS SUMMARY | 2024-11-01 12:28 | XMS_ITS | Encounter Summary ---
Author Organization Healthcare Address [address] [place] [address] Care Team Providers Care Pharmacovigilance Scientist Name Role Phone Sergey Oh MD Primary Care Provider [phone] Jean Mak MD Unavailable [phone] Encounter Details Date Type Department Care Team (Latest Contact Info) Description 09/29/2024 Travel Social History Tobacco Use Types Packs/Day Years [...] EDT Office Visit [facility] [address] [place] [phone] Edison Skaggs MD 800 [place] [address] 12/23/2024 11:00 AM EDT Clinical Support [facility] [address] [place] [phone] 12/23/2024 2:00 PM EDT Office Visit [facility] Medicine Specialties [address], 2nd [place] [address] Radha Montelongo D, INTERPRETATIVE DANCER [address] [facility] [address] [place] [address] 12/29/2024 1:00 PM EDT Clinical Support [facility] [address] [place] [phone] 12/29/2024 1:30 PM EDT Office Visit [facility] [address] [place] [phone] Danny Coon MD [address] [place] [address] 125 [place] [phone] documented as of this encounter Visit Diagnoses [...] documented as of this encounter Care Teams Pharmacovigilance Scientist Relationship Specialty Start Date End Date Sergey Oh MD PCP - General 11/13/21 Jean Mak MD 800 [facility] [address] [address] Surgeon Otolaryngology 11/21/21 documented as of this encounter
--- OUTSIDE RECORDS SUMMARY | 2024-11-01 12:28 | XMS_ITS | Encounter Summary ---
Author Organization Healthcare Address [address] [place] [address] Care Team Providers Care Guide Domestic Tour Name Role Phone Sergey Oh MD Primary Care Provider [phone] Jean Mak MD Unavailable [phone] Encounter Details Date Type Department Care Team (Late st Contact Info) Description 12/11/2023 Orders Only External Location 800 [place] [address] Provider, External Social History Tobacco Use Types [...] Upcoming Encounters Date Type Department Care Team ([facility] st Contact Info) Description 12/23/2024 11:00 AM EDT Office Visit [facility] [address] [place] [phone] Edison Skaggs MD 800 [place] [address] 12/23/2024 11:00 AM EDT Clinical Support [facility] [address] [place] [phone] 12/23/2024 2:00 PM EDT Office Visit [facility] Medicine Specialties [address], 2nd [place] [address] Radha Montelongo D, MOTHERS HELPER [address] [facility] [address] [place] [address] 12/29/2024 1:00 PM EDT Clinical Support [facility] [address] [place] [phone] 12/29/2024 1:30 PM EDT Office Visit [facility] [address] [place] [phone] Danny Coon MD 2195 [facility] 125 [place] [address] documented as of this encounter Procedures Procedure [...] documented as of this encounter Care Teams Guide Domestic Tour Relationship Specialty Start Date End Date Sergey Oh MD PCP - General 11/13/21 Jean Mak MD 800 [facility] Cancer [address] [address] Surgeon Otolaryngology 11/21/21 documented as of this encounter
--- OUTSIDE RECORDS SUMMARY | 2024-11-01 12:28 | XMS_ITS | Encounter Summary ---
Author Organization Healthcare Address [address] [id number] Care Team Providers Care Automobile Mechanic Name Role Phone Pcp, No Primary Care Provider Sergey Oswald MD Primary Care Provider [phone] Jean Mak MD Unavailable [phone] Encounter Details Date Type Department Care Team (Late Contact Info) Description 08/11/2020 Orders Only External Location [address] [place] [phone] Provider, External Social History Tobacco Use Types [...] Description 12/23/2024 11:00 AM EDT Office Visit [facility] Multidisciplinary Oncology Clinic [address] [place] [phone] Edison Skaggs MD 800 [place] [address] 12/23/2024 11:00 AM EDT Clinical Support [facility] Multidisciplinary Oncology Clinic [address] [place] [phone] 12/23/2024 2:00 PM EDT Office Visit [place] [facility] [address], 2nd [place] [phone] Radha Montelongo, CLERK OF SCALES [address] [facility] [address] [place] [phone] 12/29/2024 1:00 PM EDT Clinical Support [facility] 800 [facility], 2nd [place] [phone] 12/29/2024 1:30 PM EDT Office Visit [facility] 800 [facility], [address]nd [place] [address] Danny Coon MD 2195 [facility] 125 [place] [phone] documented as of this encounter Procedures Procedure [...] on filedocumented in this encounter Care Teams Automobile Mechanic Relationship Specialty Start Date End Date Pcp, No 800 [place] [address] PCP - General Family Medicine 03/31/21 11/12/21 Sergey hO MD 800 [place] [address] PCP - General 11/13/21 Jean Mak MD 800 [facility] 2nd [place] [phone] Surgeon Otolaryngology 11/21/21 documented as of this encounter
--- OUTSIDE RECORDS SUMMARY | 2024-11-01 12:28 | XMS_ITS | Encounter Summary ---
Author Organization Healthcare Address [address] [place] [address] Care Team Providers Care Extraction Machine Operator Name Role Phone Sregey Oh MD Primary Care Provider [phone] Jean Mak MD Unavailable [phone] Encounter Details Date Type Department Care Team (Late st Contact Info) Description 12/13/2023 Orders Only External Location 800 [place] [address] Provider, External Social History Tobacco Use Types [...] Upcoming Encounters Date Type Department Care Team ([facility] st Contact Info) Description 12/23/2024 11:00 AM EDT Office Visit [facility] [address] [place] [phone] Edison Skaggs MD 800 [place] [address] 12/23/2024 11:00 AM EDT Clinical Support [facility] [address] [place] [phone] 12/23/2024 2:00 PM EDT Office Visit [facility] Medicine Specialties [address], 2nd [place] [address] Radha Montelongo D, FOUNDRY TENDER [address] [place] [address] 12/29/2024 1:00 PM EDT Clinical Support [facility] [address] [place] [phone] 12/29/2024 1:30 PM EDT Office Visit [facility] [address] [place] [phone] Danny Coon MD 2195 [facility] 125 [place] [address] documented as of this encounter Procedures Procedure [...] documented as of this encounter Care Teams Extraction Machine Operator Relationship Specialty Start Date End Date Sergey Oh MD PCP - General 11/13/21 Jean Mak MD [address] [place] [address] [address] Surgeon Otolaryngology 11/21/21 documented as of this encounter
--- OUTSIDE RECORDS SUMMARY | 2024-11-01 12:28 | XMS_ITS | Encounter Summary ---
Author Organization Healthcare Address [address] [id number] Care Team Providers Care Cafeteria Assistant Name Role Phone Sergey Oh MD Primary Care Provider [phone] Jean Mak MD Unavailable [phone] Encounter Details Date Type Department Care Team (Late st Contact Info) Description 01/08/2024 Lab Requisition [facility] 800 [place] [address] Broderick Taylor MD 800 [facility] 134 [place] [address] Polyp of colon Social History Tobacco [...] ([facility] st Contact Info) Description 12/23/2024 11:00 AM EDT Office Visit [facility] Multidisciplinary Oncology Clinic [address] [place] [phone] Edison Skaggs MD 800 [place] [address] 12/23/2024 11:00 AM EDT Clinical Support [facility] Multidisciplinary Oncology Clinic [address] [place] [phone] 12/23/2024 2:00 PM EDT Office Visit [facility] Medicine [facility]ties [address], 2nd [place] [address] Radha Montelongo D, WOODWORKING MACHINE OPERATOR [address] [facility] [address] [place] [address] 12/29/2024 1:00 PM EDT Clinical Support [facility] [address] [address] 12/29/2024 1:30 PM EDT Office Visit [facility] [address] [place] [address] Danny Coon MD 2195 [facility] 125 [place] [address] documented as of this encounter Procedures Procedure Name Priority Date/Time Associated Diagnosis Comments SURGICAL PATHOLOGY CONSULT Routine 01/08/2024 10:42 AM EDT Polyp of colon documented in this encounter Results * Surgical Pathology Consult (01/08/2024 10:42 AM EDT) Case Report Sugical Pathology Consult Case: [id number] Authorizing Provider: Broderick Taylor MD Collected: 01/08/20241041 Ordering Location: [facility] Lab Received: 01/08/20241041 Pathologist: Dimas Becker DO Specimen: Sigmoid Colon, [id number] 1:22 PM EDT [facility] Final Diagnosis OUTSIDE SLIDES; [id number], A-C; 12/12/23 A. COLON, POLYP AT 25 [...] PMS2, MSH2 AND MSH6). 1:22 PM EDT [facility] at 1321 EDT Clinical Information K63.5 - Polyp of colon [ICD-10-CM] 1:22 PM EDT [facility] Special and Immunohistochemical Stains Special Stain: [...] developed by and are performed at the [facility], [address] [place] [address]. All tests reported here, except those addressing [...] negativity on decalcified specimens. 1:22 PM EDT [facility] Gross Description A. [id number] Received along with a corresponding pathology report from [facility] ([place]) are 47 slide(s) labeled outside case: [id number] collected on 12/12/23. Also received 2 blocks as noted per Dr. Becker on 01/15/2024. 1:22 PM EDT [facility] Intradepartmental Consultation with Agreement Dr. Palmer (vascular invasion, staging and mesenteric margin). 1:22 PM EDT [facility] Note: A resident was involved in the service. I attest I examined the relevant preparations for the specimens and confirmed the diagnosis or interpretation. 1:22 PM EDT [facility] Tissue Sigmoid colon structure / Unknown 01/08/2024 10:42 AM EDT 01/08/2024 10:42 AM EDT Broderick Taylor MD LAB PATHOLOGY ORDERABLES Fin al Result [facility] 800 [place] [address] documented in this encounter Visit Diagnoses Diagnosis [...] documented as of this encounter Care Teams Cafeteria Assistant Relationship Specialty Start Date End Date Sergey Oh MD PCP - General 11/13/21 Jean Mak MD [address] [place] [address] [address] Surgeon Otolaryngology 11/21/21 documented as of this encounter
--- OUTSIDE RECORDS SUMMARY | 2024-11-01 12:28 | XMS_ITS | Encounter Summary ---
Author Organization Healthcare Address [address] [id number] Care Team Providers Care Ammunition And Explosives Handler Name Role Phone Pcp, No Primary Care Provider Sergey Oswald MD Primary Care Provider [phone] Jean Mak MD Unavailable [phone] Encounter Details Date Type Department Care Team (Late Contact Info) Description 02/12/2017 Orders Only External Location [address] [place] [phone] Provider, External Social History Tobacco Use Types [...] Description 12/23/2024 11:00 AM EDT Office Visit [facility] Multidisciplinary Oncology Clinic 800 [place] [phone] Edison Skaggs MD 800 [place] [address] 12/23/2024 11:00 AM EDT Clinical Support [facility] Multidisciplinary Oncology Clinic 800 [place] [phone] 12/23/2024 2:00 PM EDT Office Visit [place] [facility] [address] [place] [address] Radha Montelongo, AUTOMATIC GLUING MACHINE OPERATOR [address] [facility] [address] [place] [phone] 12/29/2024 1:00 PM EDT Clinical Support [facility] 800 [facility], 2nd [place] [address] 12/29/2024 1:30 PM EDT Office Visit [facility] 800 [facility], [address] [place] [address] Danny Coon MD 2195 [facility] 125 [place] [address] documented as of this encounter Procedures Procedure [...] on filedocumented in this encounter Care Teams Ammunition And Explosives Handler Relationship Specialty Start Date End Date Pcp, No 800 [place] [address] PCP - General Family Medicine 03/31/21 11/12/21 Sergey Oh MD 800 [place] [address] PCP - General 11/13/21 Jean Mak MD 800 [facility] 2nd [place] [phone] Surgeon Otolaryngology 11/21/21 documented as of this encounter
--- OUTSIDE RECORDS SUMMARY | 2024-11-01 12:28 | XMS_ITS | Encounter Summary ---
Author Organization Healthcare Address [address] [place] [address] Care Team Providers Care Sand Mill Operator Core Sand Name Role Phone Sergey Oh MD Primary Care Provider [phone] Jean Mak MD Unavailable Encounter Details Date Type Department Care Team (Late st Contact Info) Description 12/06/2023 Orders Only External Location 800 [place] [address] Provider, External Social History Tobacco Use Types [...] Upcoming Encounters Date Type Department Care Team ([facility] st Contact Info) Description 12/23/2024 11:00 AM EDT Office Visit [facility] [address] [place] [phone] Edison Skaggs MD 800 [place] [address] 12/23/2024 11:00 AM EDT Clinical Support [facility] [address] [place] [address] 12/23/2024 2:00 PM EDT Office Visit [facility] Medicine Specialties [address] 2[address] [place] [phone] Radha Montelongo D, RDA [address] [facility] [address] [place] [address] 12/29/2024 1:00 PM EDT Clinical Support [facility] [address] [place] [phone] 12/29/2024 1:30 PM EDT Office Visit [facility] [address] [place] [phone] Danny Coon MD 2195 [facility] 125 [place] [address] documented as of this encounter Procedures Procedure [...] documented as of this encounter Care Teams Sand Mill Operator Core Sand Relationship Specialty Start Date End Date Sergey Oh MD PCP - General 11/13/21 Jean Mak MD 800 [facility] Cancer [address] [address] Surgeon Otolaryngology 11/21/21 documented as of this encounter
--- OUTSIDE RECORDS SUMMARY | 2024-11-01 12:28 | XMS_ITS | Encounter Summary ---
Author Organization Healthcare Address [address] [id number] Care Team Providers Care Residential Appraiser Name Role Phone Pcp, No Primary Care Provider Sergey Oswald MD Primary Care Provider [phone] Jean Mak MD Unavailable [phone] Encounter Details Date Type Department Care Team (Late Contact Info) Description 10/13/2018 Orders Only External Location [address] [place] [phone] Provider, External Social History Tobacco Use Types [...] Description 12/23/2024 11:00 AM EDT Office Visit [facility] Multidisciplinary Oncology Clinic 800 [place] [phone] Edison Skaggs MD 800 [place] [address] 12/23/2024 11:00 AM EDT Clinical Support [facility] Multidisciplinary Oncology Clinic [address] [place] [phone] 12/23/2024 2:00 PM EDT Office Visit [place] [facility] [address] 2nd [place] [address] Radha Montelongo, CLINICAL TRAINING SPECIALIST [address] [facility] [address] [place] [phone] 12/29/2024 1:00 PM EDT Clinical Support [facility] 800 [facility], 2nd [place] [address] 12/29/2024 1:30 PM EDT Office Visit [facility] 800 [facility], [address]nd [place] [address] Danny Coon MD 2195 [facility] 125 [place] [phone] documented as of this encounter Procedures Procedure [...] on filedocumented in this encounter Care Teams Residential Appraiser Relationship Specialty Start Date End Date Pcp, No 800 [place] [address] PCP - General Family Medicine 03/31/21 11/12/21 Sergey Oh MD 800 [place] [address] PCP - General 11/13/21 Jean Mak MD 800 [facility] 2nd [place] [address] Surgeon Otolaryngology 11/21/21 documented as of this encounter
--- OUTSIDE RECORDS SUMMARY | 2024-11-01 12:28 | XMS_ITS | Encounter Summary ---
Author Organization Healthcare Address [address] [place] [address] Care Team Providers Care Powder Blender Name Role Phone Sergey Oh MD Primary Care Provider [phone] Jean Mak MD Unavailable [phone] Encounter Details Date Type Department Care Team (Late st Contact Info) Description 12/13/2023 Orders Only External Location 800 [place] [address] Provider, External Social History Tobacco Use Types [...] Upcoming Encounters Date Type Department Care Team ([facility] st Contact Info) Description 12/23/2024 11:00 AM EDT Office Visit [facility] [address] [place] [phone] Edison Skaggs MD 800 [place] [address] 12/23/2024 11:00 AM EDT Clinical Support [facility] [address] [place] [phone] 12/23/2024 2:00 PM EDT Office Visit [facility] Medicine Specialties [address]nd [place] [address] Radha Montelongo D, AGRICULTURAL PURCHASING AGENT [address] [facility] [address] [place] [address] 12/29/2024 1:00 PM EDT Clinical Support [facility] [address] [place] [phone] 12/29/2024 1:30 PM EDT Office Visit [facility] [address] [place] [phone] Danny Coon MD 2195 [facility] 125 [place] [address] documented as of this encounter Procedures Procedure [...] documented as of this encounter Care Teams Powder Blender Relationship Specialty Start Date End Date Sergey Oh MD PCP - General 11/13/21 Jean Mak MD [address] [place] [address] [address] Surgeon Otolaryngology 11/21/21 documented as of this encounter
--- OUTSIDE RECORDS SUMMARY | 2024-11-01 12:28 | XMS_ITS | Encounter Summary ---
Author Organization Healthcare Address [address] [place] [address] Care Team Providers Care Cheese Cutter Name Role Phone Sergey Oh MD Primary Care Provider [phone] Jean Mak MD Unavailable [phone] Reason for Visit * Reason Comments Med Refill Encounter Details Date Type Department Care Team (Late st Contact Info) Description 05/12/2024 Refill [facility] [address]nd [place] [address] Danny Coon MD [facility]5 [facility] 125 [place] [address] Social History Tobacco Use Types [...] Upcoming Encounters Date Type Department Care Team ([facility] st Contact Info) Description 12/23/2024 11:00 AM EDT Office Visit [facility] Multidisciplinary Oncology Clinic 800 [place] [address] Edison Skaggs MD 800 [place] [address] 12/23/2024 11:00 AM EDT Clinical Support [facility] 800 [place] [address] 12/23/2024 2:00 PM EDT Office Visit [facility] [address] 2nd [place] [address] Radha Montelongo D, E COMMERCE MERCHANT [address] [facility] [address] [place] [address] 12/29/2024 1:00 PM EDT Clinical Support [facility] 800 [facility] 2nd [place] [phone] 12/29/2024 1:30 PM EDT Office Visit [facility] [address] [phone] Danyn Coon MD 2195 [facility] 125 [place] [address] documented as of this encounter Visit Diagnoses [...] documented as of this encounter Care Teams Cheese Cutter Relationship Specialty Start Date End Date Sergey Oh MD PCP - General 11/13/21 Jean Mak MD [address] [place] [address] [address] Surgeon Otolaryngology 11/21/21 documented as of this encounter
--- OUTSIDE RECORDS SUMMARY | 2024-11-01 12:28 | XMS_ITS | Encounter Summary ---
Author Organization Healthcare Address [address] [place] [address] Care Team Providers Care Machine Deicer Element Winder Name Role Phone Sergey Oh MD Primary Care Provider [phone] Jean Mak MD Unavailable [phone] Encounter Details Date Type Department Care Team (Late st Contact Info) Description 11/23/2021 Lab Requisition [facility] 800 [place] [address] Jean Mak MD 800 [facility] [address] [place] [address] Malignant neoplasm of thyroid gland (CMS/HCC) Social History Tobacco Use Types Packs/Day Years Used Date Smoking Tobacco: Every Day Cigarettes 2 30.6 Started: 1994 Smokeless Tobacco: Former Comments:Vaping Alcohol [...] 12/23/2024 11:[address] EDT [address] [facility] Multidisciplinary Oncology Clinic [address] [place] [address] Edison Skaggs MD 800 [place] [address] 12/23/2024 11:00 AM EDT Clinical Support [facility] Multidisciplinary Oncology Clinic [address] [place] [phone] 12/23/2024 2:00 PM EDT Office Visit [facility] Medicine Specialties [address] 2[address] [place] [address] Radha Montelongo D, INTERNAL CONTROL ANALYST [address] [facility] [address] [place] [address] 12/29/2024 1:00 PM EDT Clinical Support [facility] [address] [address] 12/29/2024 1:30 PM EDT Office Visit [facility] [address] [address] Danny Coon MD 2195 [facility] 125 [place] [address] documented as of this encounter Procedures Procedure Name Priority Date/Time Associated Diagnosis Comments SURGICAL PATHOLOGY CONSULT Routine 11/23/2021 10:54 AM EDT Malignant neoplasm of thyroid gland (CMS/HCC) documented in this encounter Results * Surgical Pathology Consult (11/23/2021 10:54 AM EDT) Case Report Sugical Pathology Consult Case: [id number] Authorizing Provider: Jean Mak MD Collected: 11/23/2021 1054 Ordering Location: [facility] Lab Received: 11/23/2021 1055 Pathologist: Sona Montiel MD Specimen: Thyroid, [id number] 11/27/2021 5:00 PM EDT [facility] Final Diagnosis A. THYROID, RIGHT LOBE, HEMITHYROIDECTOMY : (OUTSIDE CASE #[id number], COLLECTED DATED: 09/09/2019) - PAPILLARY THYROID CARCINOMA, [...] FOR EXTRANODAL EXTENSION. 11/27/2021 5:00 PM EDT [facility] at 1700 EDT Synoptic Checklist THYROID [...] IN LEFT LOBE. 11/27/2021 5:00 PM EDT [facility] Clinical Information C73 - Malignant neoplasm of thyroid gland [ICD-10-CM] 11/27/2021 5:00 PM EDT [facility] Gross Description A. [id number] Received along with a corresponding pathology report from [facility] are 39 slide(s) labeled outside case: [id number] collected on 09/09/2019. 11/27/2021 5:00 PM EDT [facility] Note: A resident was involved in the service. I attest I examined the relevant preparations for the specimens and confirmed the diagnosis or interpretation. 11/27/2021 5:00 PM EDT [facility] Tissue Thyroid structure / Unknown 11/23/2021 10:54 AM EDT 11/23/2021 10:55 AM EDT us Jean Mak MD LAB PATHOLOGY ORDERABLES [facility] 800 [place] [address] documented in this encounter Visit Diagnoses Diagnosis Malignant neoplasm of thyroid gland (CMS/HCC) Malignant neoplasm of thyroid gland documented in this encounter Additional Health Concerns Assessment Noted Time A fall risk assessment has been complete d for the patient 11/23/2021 12:37 PM EDT documented as of this encounter Care Teams Machine Deicer Element Winder Relationship Specialty Start Date End Date Sergey Oh MD PCP - General 11/13/21 Jean Mak MD 800 [facility] Cancer [address] [address] Surgeon Otolaryngology 11/21/21 documented as of this encounter
--- OUTSIDE RECORDS SUMMARY | 2024-11-01 12:28 | XMS_ITS | Clinical Summary ---
Author Organization [facility] Address [address] [place] [address] Care Team Providers Care Thermometer Production Worker Name Role Phone Sergey Oh MD Primary Care Provider [phone] Jean Mak MD Unavailable [phone] Allergies No known active allergies Medications albuterol 108 (90 Base) MCG/ACT inhaler INHALE 2 PUFFS BY MOUTH FOUR TIMES DAILY NEEDED FOR SHORTNESS OF BREATH OR WHEEZING 09/19/19 24 Active HYDROcodone-acetam inophen ([place]) 7.5-325 MG tablet TAKE ONE (1) TABLET THREE (3) TIMES A DAY BY ORAL ROUTE AFTER MEAL(S) FOR 30 DAYS. Active ergocalciferol (Drisdol) 1.25 MG (63588 UT) capsule Take 1 capsule (50,000 Units) by mouth 1 (one) time per week. 12 capsule 3 02/04/20 24 Active OLANZapine zydis (ZyPREXA ZYDIS) 5 MG disintegrating tablet Take 1 tablet (5 mg) by mouth every night. 30 tablet 02/19/20 24 Active Additional Information Patient not taking.Reported on 10/06/2024 cyclobenzaprine (Flexeril) 10 MG tablet Take 1 [...] AFTER MEAL(S) FOR FIVE (5) DAYS. Active loperamide (Imodium) 2 MG capsule Active prochlorperazine (Compazine) 10 MG tablet Active levothyroxine (Synthroid, Levoxyl) 125 MCG tablet Take 1 tablet by mouth daily. 90 tablet 1 10/07/19 25 Active levothyroxine (Synthroid, Levoxyl) 125 MCG tablet Take 1 tablet by mouth daily. 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); Multiple lung nodules on CT; Post-surgical hypothyroidism; Vasomotor symptoms due to menopause; Vitamin D deficiency 10/06/2024 Results Follow-Up [facility] [address] [phone] Danny Coon MD 10/06/2024 Results Follow-Up [facility] [address] [address] Danny Coon MD 10/06/2024 Travel 09/29/2024 10:59 AM EDT - 09/29/2024 11:59 PM EDT Hospital Encounter [facility] [address] [place] [address] Chronic viral hepatitis B without delta agent and without coma (CMS/HCC) Discharge Disposition: Home or Self Care 09/29/2024 Travel 09/23/2024 10:50 AM EDT Office Visit [facility] [address] [place] [address] Moris Valente MD Malignant neoplasm of sigmoid colon (CMS/HCC) (Primary Dx); Encounter for follow-up surveillance of colon cancer 09/23/2024 10:00 AM EDT Clinical Support [facility] [address] [facility], [address]nd [place] [address] Vitamin D deficiency; Post-surgical hypothyroidism; Malignant neoplasm of sigmoid colon (CMS/HCC) 09/23/2024 7:48 AM EDT - 09/23/2024 11:59 PM EDT Hospital Encounter [facility] 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) Discharge Disposition: Home or Self Care 09/23/2024 Travel 09/14/2024 Orders Only [facility] [address] [facility], [address]nd [place] [address] Archana Vargas RN from Last 3 Months Immunizations Immunization Administration [...] Hx Relation Name Status Comments Father Brian Serrano Mother Zara Cárdenas Social History Tobacco Use [...] Mass Index 27.78 10/06/2024 10:02 AM EDT Plan of Treatment Upcoming Encounters Date Type Department Care Team (Late st Contact Info) Description 12/23/2024 11:00 AM EDT Office Visit [facility] Multidisciplinary Oncology Clinic [address] [place] [phone] Edison Skaggs MD [address] [place] [address] 12/23/2024 11:00 AM EDT Clinical Support [facility] [address] [place] [address] 12/23/2024 2:00 PM EDT [facility] [address] [place] [address] Radha Montelongo, SIGNAL OPERATOR LINGUIST [address] [place] [address] 12/29/2024 1:00 PM EDT Clinical Support [facility] [address] [facility], [address]nd [place] [address] 12/29/2024 1:30 PM EDT Office Visit [facility] [address] [facility], [address]nd [place] [address] Danny Coon MD [address] [facility] [address] [place] [address] Health Maintenance Due Date Last Done Comments [facility]-HIV Screening 1978 [facility]-/Child/Adol SDOH Screenings 1978 [facility]- SDOH Screenings 1996 [facility]-Adult SDOH Screenings 1996 [facility]-Hepatitis B Vaccines (1 of 3 - 19+ 3-dose series) 1997 09/29/2024, 06/21/2024, 06/21/2024, Additional history exists [facility]-Zoster Vaccines (1 of 2) 1997 [facility]-Pap Smear 1999 [facility]-Cervical Cancer Screening 2008 [facility]-HPV/Cotest 2008 [id number]-69 Vaccine (2 - Moderna risk series) 12/14/2021 11/16/2021 CT Colonography 2023 Colonoscopy 2023 FIT-DNA 2023 FIT 2023 FOBT 2023 Sigmoidoscopy 2023 [facility]-Colorectal Cancer Screening 2023 [facility]-Hepatitis A Vaccines (2 of 2 - Risk 2-dose series) 11/19/2023 05/21/2023 [facility]-Influenza Vaccine (#1) 11/29/202402/19, 11/16/2021, 01/30/2017 [facility]-DTaP,Tdap,and Td Vaccines (3 - Td or Tdap) 06/28/2025 06/29/2015, 02/23/2014 [facility]-Depression Screening 09/23/2025 025, 06/21/2024, 01/08/2022 [facility]-Hepatitis C Screening Completed 11/02/2021 [facility]-Pneumococcal Vaccine: Pediatrics (0 to 5 Years) and At-Risk Patients (6 to 49 Years) Completed 11/16/2021 [facility]-Obesity Intervention Completed 025, 01/19/2024, 09/04/2023, Additional [...] this topic Medical Devices Implanted Type Area Chemist Inorganic Device Identifier Shelf Expiration Date Model / Serial / Lot Port Clearvue Power 8fr - [id number] Implanted:Qt y: 1 on 01/22/2024 by Clay in, Whitney Smith MD at [facility] Catheter Right: Subclavian Bard Perip[employer] V[employer]-[id number] MEDIPORT 05/28/2025 [id number] / / [id number] Procedures Procedure Name Priority Date/Time Associated Diagnosis Comments THYROGLOBULIN (INHOUSE- REFLEX ONLY) Routine 10/06/2024 11:21 AM EDT Papillary microcarcinoma of thyroid (CMS/HCC) CEA, SERUM Routine 10/06/2024 11:21 AM EDT Malignant neoplasm of sigmoid colon (CMS/HCC) THYROGLOBULIN ANTIBODY AND THYROGLOBULIN (MARIA TERESA OR LC-MSMS) Routine 10/06/2024 11:21 AM EDT Papillary microcarcinoma of thyroid (CMS/HCC) US LIVER SCREEN Routine 09/29/2024 11:29 AM EDT Chronic viral hepatitis B without delta agent and without coma (CMS/HCC) COMPREHENSIVE METABOLIC PANEL, PLASMA Routine 09/23/2024 10:34 AM EDT Malignant neoplasm of sigmoid colon (CMS/HCC) CBC WITH AUTO DIFFERENTIAL Routine 09/23/2024 10:34 AM EDT Malignant neoplasm of sigmoid colon (CMS/HCC) FREE T4, PLASMA Routine 09/23/2024 10:34 AM EDT Post-surgical hypothyroidism TSH Routine 09/23/2024 10:34 AM EDT Post-surgical hypothyroidism VITAMIN D 25 HYDROXY Routine 09/23/2024 10:34 AM EDT Vitamin D deficiency CT SOFT TISSUE NECK W IV CONTRAST Routine 09/23/2024 8:36 AM EDT 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) CT ABDOMEN PELVIS W IV CONTRAST Routine 09/23/2024 8:36 AM EDT Malignant neoplasm of sigmoid colon (CMS/HCC) CT CHEST W IV CONTRAST Routine 09/23/2024 8:36 AM EDT Malignant neoplasm of sigmoid colon (CMS/HCC) ACUTE HEPATITIS PANEL Routine 11/02/2021 2:42 PM EDT Thyroid cancer (CMS/HCC) from Last 3 Months or Most Recently Relevant to Health Maintenance Results * Thyroglobulin Antibody and Thyroglobulin (MARIA TERESA or LC-MSMS) (10/06/2024 11:21 AM EDT) Thyroglobulin Antibody <1.0 <4.0 IU/mL 10/06/2024 12:51 PM EDT [facility] Blood Venous blood specimen / Unknown Venipuncture / Unknown 10/06/2024 11:21 AM EDT 10/06/2024 11:32 AM EDT us Danny Coon MD LAB BLOOD ORDERABLES Final Resu lt Performing Organization Address City/[facility]/[place] [address] * Thyroglobulin (10/06/2024 11:21 AM EDT) Thyroglobulin (Inhouse) 0.1 <=31.8 ng/mL 10/06/2024 1:32 PM EDT [facility] Blood Venous blood specimen / Unknown Venipuncture / Unknown 10/06/2024 11:21 AM EDT 10/06/2024 11:32 AM EDT Narrative [facility] - 10/06/2024 1:32 PM EDT Performed by Buxfer 2nd generation TG chemiluminescent immunoassay. Results obtained with different test methods or kits cannot be used interchangeably. us Danny Coon MD LAB BLOOD ORDERABLES Final Resu lt Performing Organization Address [facility] [place] [address] * (ABNORMAL) CEA (10/06/2024 11:21 AM EDT) CEA, Serum 21.9(H) <4.0 ng/mL 10/06/2024 1:00 PM EDT [facility] Blood Venous blood specimen / Unknown Venipuncture / Unknown 10/06/2024 11:21 AM EDT 10/06/2024 11:32 AM EDT Narrative [facility] - 10/06/2024 1:00 PM EDT Normal range for smokers: < 5.5 ng/ml Normal range for non-smokers: <=4.0 ng/ml Performed by Brendon electrochemiluminescent immunoassay. Results obtained with different test methods or kits cannot be used interchangeably. us Caroline Means MD LAB BLOOD ORDERABLES Final Resul t [facility] [address] [place] [address] * US Liver Screen (09/29/2024 11:29 AM [...] are based on Ultrasound LI-RADS version 2017. [email or web address] CRITICAL RESULT: No. COMMUNICATION: Per [...] recommendations are based on UltrasoundLI-RADS version 2017. [email or web address] -[email or web address] .[email or web address] CRITICAL RESULT: No. COMMUNICATION: Per this written report. Drafted by Dilan Ruiz MD on 09/29/2024 1:09 PM Final report signed by Dilan Ruiz MD on 09/29/2024 1:12 PM us Radha Montelongo SIGNAL OPERATOR LINGUIST IMG US PROCEDURES Final Re sult * Vitamin D 25 Hydroxy (09/23/2024 10:34 AM EDT) Vitamin D 25 Hydroxy 31.9 20.0 - 80.0 ng/mL 09/23/2024 12:53 PM EDT [facility] Blood Venous blood specimen / Unknown Venipuncture / Unknown 09/23/2024 10:34 AM EDT 09/23/2024 10:56 AM EDT Narrative [facility] - 09/23/2024 12:53 PM EDT Testing performed on [employer], standardized against NIST SRM 2972. When testing [...] MD LAB BLOOD ORDERABLES Final Resu lt [facility] [address] [place] [address] * (ABNORMAL) CBC and Differential (09/23/2024 10:34 AM EDT) WBC Count 8.04 3.70 - 10.30 10*3/uL LAB HEMATOLOGY METHOD 09/23/2024 11:11 AM EDT [facility] RBC Count 4.50 3.90 - 5.20 10*6/uL LAB HEMATOLOGY METHOD 09/23/2024 11:11 AM EDT [facility] HGB 12.8 11.2 - 15.7 g/dL LAB HEMATOLOGY METHOD 09/23/2024 11:11 AM EDT [facility] HCT 40.1 34.0 - 45.0 % LAB HEMATOLOGY METHOD 09/23/2024 11:11 AM EDT [facility] Platelet Count 266 155 - 369 10*3/uL LAB HEMATOLOGY METHOD 09/23/2024 11:11 AM EDT [facility] MCV 89 79 - 98 fL LAB HEMATOLOGY METHOD 09/23/2024 11:11 AM EDT [facility] MCH 28.4 26.0 - 32.0 pg LAB HEMATOLOGY METHOD 09/23/2024 11:11 AM EDT [facility] MCHC 31.9 30.7 - 35.5 g/dL LAB HEMATOLOGY METHOD 09/23/2024 11:11 AM EDT [facility] RDW 16.7(H) 11.5 - 14.5 % LAB HEMATOLOGY METHOD 09/23/2024 11:11 AM EDT [facility] MPV 9.3 8.8 - 12.5 fL LAB HEMATOLOGY METHOD 09/23/2024 11:11 AM EDT [facility] nRBC 0.0 <=0.0 per 100 WBCs LAB HEMATOLOGY METHOD 09/23/2024 11:11 AM EDT [facility] Differential Type Automated LAB HEMATOLOGY METHOD 09/23/2024 11:11 AM EDT [facility] Neutrophils % 55 % LAB HEMATOLOGY METHOD 09/23/2024 11:11 AM EDT [facility] Lymphocytes % 29 % LAB HEMATOLOGY METHOD 09/23/2024 11:11 AM EDT [facility] Monocytes % 9 % LAB HEMATOLOGY METHOD 09/23/2024 11:11 AM EDT [facility] Eosinophils % 6 % LAB HEMATOLOGY METHOD 09/23/2024 11:11 AM EDT [facility] Basophils % 1 % LAB HEMATOLOGY METHOD 09/23/2024 11:11 AM EDT [facility] Immature Granulocytes % 0 % LAB HEMATOLOGY METHOD 09/23/2024 11:11 AM EDT [facility] Neutrophils Absolute 4.45 1.60 - 6.10 10*3/uL LAB HEMATOLOGY METHOD 09/23/2024 11:11 AM EDT [facility] Lymphocytes Absolute 2.30 1.20 - 3.90 10*3/uL LAB HEMATOLOGY METHOD 09/23/2024 11:11 AM EDT [facility] Monocytes Absolute 0.73 0.30 - 0.90 10*3/uL LAB HEMATOLOGY METHOD 09/23/2024 11:11 AM EDT [facility] Eosinophils Absolute 0.50 0.00 - 0.50 10*3/uL LAB HEMATOLOGY METHOD 09/23/2024 11:11 AM EDT [facility] Basophils Absolute 0.05 0.00 - 0.10 10*3/uL LAB HEMATOLOGY METHOD 09/23/2024 11:11 AM EDT [facility] Immature Granulocytes Absolute 0.01 0.00 - 0.06 10*3/uL LAB HEMATOLOGY METHOD 09/23/2024 11:11 AM EDT [facility] Blood Venous blood specimen / Unknown Venipuncture / Unknown 09/23/2024 10:34 AM EDT 09/23/2024 10:59 AM EDT [facility] - 09/23/2024 11:11 AM EDT Therapeutic decision making should be based on absolute values, rather than percentages. us Caroline Maens MD LAB BLOOD ORDERABLES Final Resul t Performing Organization Address [facility] Co de Phone Number [facility] [address] [place] [address] * (ABNORMAL) Thyroid Stimulating Hormone, Plasma (09/23/2024 10:34 AM EDT) Thyroid Stimulating Hormone, Plasma 0.08(L) 0.40 - 4.20 uIU/mL 09/23/2024 11:35 AM EDT [facility] Blood Venous blood specimen / Unknown Venipuncture / Unknown 09/23/2024 10:34 AM EDT 09/23/2024 10:56 AM EDT Narrative [facility] - 09/23/2024 11:35 AM EDT Trimester Specific Ranges TSH ( IU/mL) 1st Trimester 0.1 - 3.0 2nd Trimester 0.19 - 4.06 3rd Trimester 0.3 - 3.7 us Danny Coon MD LAB BLOOD ORDERABLES Final Resu lt Performing Organization Address [facility] Co de Phone Number [facility] [address] [place] [address] * Free T4, Plasma (09/23/2024 10:34 AM EDT) Free T4, Plasma 1.6 0.8 - 1.7 ng/dL 09/23/2024 11:35 AM EDT [facility] Blood Venous blood specimen / Unknown Venipuncture / Unknown 09/23/2024 10:34 AM EDT 09/23/2024 10:56 AM EDT Narrative [facility] - 09/23/2024 11:35 AM EDT Free T4 Trimester Specific Ranges 1st Trimester 0.9 - 1.50 ng/dL 2nd Trimester 0.7 - 1.40 ng/dL 3rd Trimester 0.7 - 1.24 ng/dL us Danny Coon MD LAB BLOOD ORDERABLES Final Resu lt Performing Organization Address City/[facility]/ZIP Co de Phone Number [facility] [address] [place] [address] * (ABNORMAL) Comprehensive metabolic panel (09/23/2024 10:34 AM EDT) Glucose, Plasma 83 74 - 99 mg/dL 09/23/2024 11:35 AM EDT [facility] BUN, Plasma 16 7 - 21 mg/dL 09/23/2024 11:35 AM EDT [facility] Creatinine, Plasma 0.79 0.60 - 1.10 mg/dL 09/23/2024 11:35 AM EDT [facility] BUN/Creatinine Ratio 20 09/23/2024 11:35 AM EDT [facility] Sodium, Plasma 140 136 - 145 mmol/L 09/23/2024 11:35 AM EDT [facility] Potassium, Plasma 4.1 3.6 - 4.9 mmol/L 09/23/2024 11:35 AM EDT [facility] Chloride, Plasma 100 97 - 107 mmol/L 09/23/2024 11:35 AM EDT [facility] CO2, Plasma 27 22 - 29 mmol/L 09/23/2024 11:35 AM EDT [facility] Anion Gap 13 6 - 16 mmol/L 09/23/2024 11:35 AM EDT [facility] Total Calcium, Plasma 8.8(L) 8.9 - 10.2 mg/dL 09/23/2024 11:35 AM EDT [facility] Total Protein 7.0 6.3 - 7.9 g/dL 09/23/2024 11:35 AM EDT [facility] Albumin, Plasma 4.2 3.5 - 5.2 g/dL 09/23/2024 11:35 AM EDT [facility] AST, Plasma 29 10 - 35 U/L 09/23/2024 11:35 AM EDT [facility] ALT, Plasma 26 10 - 35 U/L 09/23/2024 11:35 AM EDT [facility] Alkaline Phosphatase, Plasma 151(H) 35 - 104 U/L 09/23/2024 11:35 AM EDT [facility] Total Bilirubin, Plasma 0.3 0.2 - 1.1 mg/dL 09/23/2024 11:35 AM EDT [facility] eGFRcr 93.6 mL/min/1.7 3m*2 09/23/2024 11:35 AM EDT [facility] Comment:Reported eGFRcr in m L/min/1.73m2 is based the CKD-EPI 2020 equation that does not use a race coefficient. Blood Venous blood specimen / Unknown Venipuncture / Unknown 09/23/2024 10:34 AM EDT 09/23/2024 10:56 AM EDT us Caroline Means MD LAB BLOOD ORDERABLES Final Resul t [facility] [address] [place] [address] * CT Abdomen Pelvis w IV Contrast [...] Total DLP (Dose-Length Product): 1638.66 mGy.cm (accession [id number]), 1638.66 mGy.cm (accession [id number]) Please note: The reported value represents the [...] supraumbilical fat-containing hernia. Procedure Note Geno Henriquez, - 09/23/2024 CLINICAL INDICATION: colon cancer surveillance TECHNIQUE: Multiple axial CT images were obtained from thoracic inlet through pubicsymphysis following administration of IV contrast, Omnipaque 300, 100 mL.Reformatted images in the coronal and sagittal planes were generated fromthe axial data set to facilitate diagnostic accuracy. Total DLP (Dose-Length Product): 1638.66 mGy.cm (accession [id number]),1638.66 mGy.cm (accession [id number]) Please note: The reported valuerepresents the total [...] MD IMAle CT PROCEDURES Final Resu lt * CT [...] Total DLP (Dose-Length Product): 1638.66 mGy.cm (accession [id number]), 1638.66 mGy.cm (accession [id number]) Please note: The reported value represents the [...] Total DLP (Dose-Length Product): 1638.66 mGy.cm (accession [id number]),1638.66 mGy.cm (accession [id number]) Please note: The reported valuerepresents the total [...] CT PROCEDURES Final Resu lt * CT Soft Tissue Neck w IV [...] error, please notify the sender immediately at [phone] and permanently delete the original report and destroy any copies or printouts. Narrative 09/24/2024 7:53 AM EDT [facility] - Phone Outpatient NAME: Latrice Finnegan DATE OF EXAM: 09/23/2024 Patient No: [id number] Physician: Harper^Rosa Date of : 1980 Past [...] changes of the cervical spine. Procedure Note Denny Leon MD - 09/24/2024 [facility] - Phone Outpatient NAME: Latrice Finnegan DATE OF EXAM: 09/23/2024 Patient No: [id number] Physician: Jaymie^Danny^Rosa Date of : 1980 Past [...] in error, pleasenotify the sender immediately at [phone] and permanently delete theoriginal report and destroy any copies or printouts. us Danny Coon MD IMG CT PROCEDURES Final Result * (ABNORMAL) Hepatitis panel, acute (11/02/2021 2:42 PM EDT) Hepatitis B Surf Antigen Positive(A) Negative 11/02/2021 6:08 PM EDT [facility] Hepatitis C Antibody Negative Negative 11/02/2021 6:08 PM EDT [facility] Hepatitis A Antibody IgM Negative Negative 11/02/2021 6:08 PM EDT [facility] Hepatitis B Core Antibody IgM Negative Negative 11/02/2021 6:08 PM EDT [facility] Blood Venous blood specimen / Unknown Venipuncture / Unknown 11/02/2021 2:42 PM EDT 11/02/2021 2:50 PM EDT us Jean Mak MD LAB BLOOD ORDERABLES Final R esult [facility] [address] [place] [address] from Last 3 Months or Most Recently Relevant to Health Maintenance Insurance [facility] MEDICAID Advance Directives * Full Code (Latest Code Status on File) Date Activated Date Inactivated Comments 12/10/2021 3:22 PM 12/11/2021 9:56 PM Question Answer Comments Patient has decision-making capacity? Yes Care Teams Thermometer Production Worker Relationship Specialty Start Date End Date Sergey Oh MD PCP - General 11/13/21 Jean Mak MD [address] [place] [address] [address] Surgeon Otolaryngology 11/21/21
--- OUTSIDE RECORDS SUMMARY | 2024-11-01 12:28 | XMS_ITS | Clinical Summary ---
Author Organization [facility] Address [address] [place] [address] [place] [address] Phone Care Team Providers Care Pinball Machine Repairer Name Role Phone Riddhi Knox Dia Primary Care Provider [phone] Allergies No known active allergies Medications albuterol [...] Date Smoking Tobacco: Every Day Cigarettes 1 34.6 Started: 03/31/1990 Smokeless Tobacco: Never Alcohol Use [...] 2023-2 5 season) 2023 11/16/2021 Influenza Vaccine (#1) 2024 , 01/30/2017 DTaP/TDaP/Td (3 - Td or Tdap) 06/28/2025, 02/23/2014 Pneumococcal Vaccine 0-49 Completed 11/16/2021 Meningococcal B Vaccine Aged Out No l onger eligible based on patient's age to complete this topic Insurance [address] [place] [address] [place] [facility] [address] [place] [address] MEDICAID Care Teams Pinball Machine Repairer Relationship Specialty Start Date End Date Riddhi Knox [address] [place] [id number] PCP - General Can Cutter 03/01/13
--- OUTSIDE RECORDS SUMMARY | 2024-11-01 12:29 | XMS_ITS | Encounter Summary ---
Author Organization Healthcare Address [address] [place] [address] Care Team Providers Care Computer Aide Name Role Phone Sergey Oh MD Primary Care Provider [phone] Jean Mak MD Unavailable [phone] Encounter Details Date Type Department Care Team (Latest Contact Info) Description 09/23/2024 Travel Social History Tobacco Use Types Packs/Day [...] ([facility] st Contact Info) Description 12/23/2024 11:00 AM EDT Office Visit [facility] Multidisciplinary Oncology Clinic [address] [place] [address] Edison Skgags MD [address] [place] [address] 12/23/2024 11:00 AM EDT Clinical Support [facility] Mult[facility] Oncology Clinic [address] [place] [phone] 12/23/2024 2:00 PM EDT Office Visit [facility] [address] [place] [address] Radha Montelongo, SALES SUPERVISOR [address] [facility] [address] [place] [address] 12/29/2024 1:00 PM EDT Clinical Support [facility] [address] [facility] 2nd [place] [address] 12/29/2024 1:30 PM EDT Office Visit [facility] [address] [facility] [address] [place] [address] Danny Coon MD [address] [facility] [address] [place] [phone] documented as of this encounter Visit Diagnoses [...] documented as of this encounter Care Teams Computer Aide Relationship Specialty Start Date End Date Sergey Oh MD PCP - General 11/13/21 Jean Mak MD [address] [place] [address] [address] Surgeon Otolaryngology 11/21/21 documented as of this encounter
--- OUTSIDE RECORDS SUMMARY | 2024-11-01 12:29 | XMS_ITS | Encounter Summary ---
Author Organization Healthcare Address [address] [id number] Care Team Providers Care Kitchen Chef Name Role Phone Pcp, No Primary Care Provider Sergey Oswald MD Primary Care Provider [phone] Jean Mak MD Unavailable [phone] Encounter Details Date Type Department Care Team (Late Contact Info) Description 11/24/2019 Orders Only External Location [address] [place] [phone] Provider, External Social History Tobacco Use Types [...] Description 12/23/2024 11:00 AM EDT Office Visit [facility] Multidisciplinary Oncology Clinic 800 [place] [phone] Edison Skaggs MD 800 [place] [address] 12/23/2024 11:00 AM EDT Clinical Support [facility] Multidisciplinary Oncology Clinic 800 [place] [phone] 12/23/2024 2:00 PM EDT Office Visit [place] [facility] [address], 2nd [place] [address] Radha Montelongo, WILDLIFE BIOLOGIST [address] [facility] [address] [place] [address] 12/29/2024 1:00 PM EDT Clinical Support [facility] 800 [facility], 2nd [place] [address] 12/29/2024 1:30 PM EDT Office Visit [facility] 800 [facility], 2nd [place] [address] Danny Coon MD 2195 [facility] 125 [place] [address] documented as of this encounter Procedures Procedure Name Priority Date/Time Associated Diagnosis Comments NM OUTSIDE IMAGES 11/24/2019 11:02 AM EDT documented in this encounter Results * NM OUTSIDE IMAGES (11/24/2019 11:02 AM EDT) Anatomical Region Laterality Modality Nuclear Medicine 11/24/2019 11:0 2 AM EDT External Provider IMG NM PROCEDURES Final Result documented in this encounter Visit Diagnoses Not on filedocumented in this encounter Care Teams Kitchen Chef Relationship Specialty Start Date End Date Pcp, No 800 [place] [address] PCP - General Family Medicine 03/31/21 11/12/21 Sergey Oh MD 800 [place] [address] PCP - General 11/13/21 Jean Mak MD 800 [facility] 2nd [place] [address] Surgeon Otolaryngology 11/21/21 documented as of this encounter
--- OUTSIDE RECORDS SUMMARY | 2024-11-01 12:29 | XMS_ITS | Encounter Summary ---
Author Organization Healthcare Address [address] [id number] Care Team Providers Care Air Dispatcher Name Role Phone Pcp, No Primary Care Provider Sergey Oswald MD Primary Care Provider [phone] Jean Mak MD Unavailable [phone] Encounter Details Date Type Department Care Team (Late Contact Info) Description 06/30/2020 Orders Only External Location [address] [place] [phone] Provider, External Social History Tobacco Use Types [...] Description 12/23/2024 11:00 AM EDT Office Visit [facility] Multidisciplinary Oncology Clinic 800 [place] [address] Edison Skaggs MD 800 [place] [address] 12/23/2024 11:00 AM EDT Clinical Support [facility] Multidisciplinary Oncology Clinic [address] [place] [phone] 12/23/2024 2:00 PM EDT Office Visit [place] [facility] [address], 2nd [place] [phone] Radha Montelongo, ASSISTANT WOMEN'S ROWING COACH [address] [facility] [address] [place] [address] 12/29/2024 1:00 PM EDT Clinical Support [facility] 800 [facility], 2nd [place] [address] 12/29/2024 1:30 PM EDT Office Visit [facility] 800 [facility], [address]nd [place] [address] Danny Coon MD [address] [facility] 125 [place] [address] documented as of this encounter Procedures Procedure Name Priority Date/Time Associated Diagnosis Comments MAMMOGRAPHY OUTSIDE IMAGES 06/30/2020 1:31 PM EDT documented in this encounter Results * MAMMOGRAPHY OUTSIDE IMAGES (06/30/2020 1:31 PM EDT) Anatomical Region Laterality Modality Breast Mammography 06/30/2020 1:31 PM EDT us External Provider IMG BI PROCEDURES Final Result documented in this encounter Visit Diagnoses Not on filedocumented in this encounter Care Teams Air Dispatcher Relationship Specialty Start Date End Date Pcp, No 800 [place] [address] PCP - General Family Medicine 03/31/21 11/12/21 Sergey Oh MD 800 [place] [address] PCP - General 11/13/21 Jean Mak MD 800 [facility] [address]nd [place] [address] Surgeon Otolaryngology 11/21/21 documented as of this encounter
--- OUTSIDE RECORDS SUMMARY | 2024-11-01 12:29 | XMS_ITS | Encounter Summary ---
Author Organization Healthcare Address [address] [id number] Care Team Providers Care Supervisor Paint Name Role Phone Pcp, No Primary Care Provider Sergey Oswald MD Primary Care Provider [phone] Jean Mak MD Unavailable [phone] Encounter Details Date Type Department Care Team (Late Contact Info) Description 07/05/2020 Orders Only External Location [address] [place] [phone] Provider, External Social History Tobacco Use Types [...] Description 12/23/2024 11:00 AM EDT Office Visit [facility] Multidisciplinary Oncology Clinic 800 [place] [phone] Edison Skaggs MD 800 [place] [address] 12/23/2024 11:00 AM EDT Clinical Support [facility] Multidisciplinary Oncology Clinic [address] [place] [phone] 12/23/2024 2:00 PM EDT Office Visit [place] [facility] [address], 2nd [place] [address] Radha Montelongo, PORCELAIN ENAMEL REPAIRER [address] [facility] [address] [place] [phone] 12/29/2024 1:00 PM EDT Clinical Support [facility] 800 [facility], 2nd [place] [address] 12/29/2024 1:30 PM EDT Office Visit [facility] [address] [address] Danny Coon MD 2195 [facility] 125 [place] [address] documented as of this encounter Procedures Procedure [...] on filedocumented in this encounter Care Teams Supervisor Paint Relationship Specialty Start Date End Date Pcp, No 800 [place] [address] PCP - General Family Medicine 03/31/21 11/12/21 Sergey Oh MD 800 [place] [address] PCP - General 11/13/21 Jean Mak MD 800 [facility] 2nd [place] [address] Surgeon Otolaryngology 11/21/21 documented as of this encounter
--- OUTSIDE RECORDS SUMMARY | 2024-11-01 12:29 | XMS_ITS | Encounter Summary ---
Author Organization Healthcare Address [address] [id number] Care Team Providers Care Vision Impaired Teacher Name Role Phone Pcp, No Primary Care Provider Sergey Oswald MD Primary Care Provider [phone] Jean Mak MD Unavailable [phone] Encounter Details Date Type Department Care Team (Late Contact Info) Description 08/09/2021 Orders Only External Location [address] [place] [phone] Provider, External Social History Tobacco Use Types [...] Description 12/23/2024 11:00 AM EDT Office Visit [facility] Multidisciplinary Oncology Clinic [address] [place] [phone] Edison Skaggs MD 800 [place] [address] 12/23/2024 11:00 AM EDT Clinical Support [facility] Multidisciplinary Oncology Clinic [address] [place] [phone] 12/23/2024 2:00 PM EDT Office Visit [place] [facility] [address], 2nd [place] [address] Radha Montelongo, CARDIOPULMONARY TECHNICIAN AND EEG TECH [address] [facility] [address] [place] [phone] 12/29/2024 1:00 PM EDT Clinical Support [facility] 800 [facility], 2nd [place] [address] 12/29/2024 1:30 PM EDT Office Visit [facility] 800 [facility], 2nd [place] [address] Danny Coon MD 2195 [facility] 125 [place] [address] documented as of this encounter Procedures Procedure [...] on filedocumented in this encounter Care Teams Vision Impaired Teacher Relationship Specialty Start Date End Date Pcp, No 800 [place] [address] PCP - General Family Medicine 03/31/21 11/12/21 Sergey Oh MD 800 [place] [address] PCP - General 11/13/21 Jean Mak MD 800 [facility] 2nd [place] [address] Surgeon Otolaryngology 11/21/21 documented as of this encounter
--- OUTSIDE RECORDS SUMMARY | 2024-11-01 12:29 | XMS_ITS | Encounter Summary ---
Author Organization Healthcare Address [address] [place] [address] Care Team Providers Care Operating Room Assistant Name Role Phone Pcp, No Primary Care Provider Sergey Oswald MD Primary Care Provider [phone] Jean Mak MD Unavailable [phone] Encounter Details Date Type Department Care Team (Late st Contact Info) Description 09/20/2021 Orders Only External Location 800 [place] [phone] Cristian Griffith MD [address] [place] [address] Social History Tobacco Use Types Packs/Day Years [...] Office Visit [facility] 800 [place] [address] Edison Skaggs MD 800 [place], [place] [phone] 12/23/2024 11:00 AM EDT Clinical Support [facility]cology [facility] 800 [place] [phone] 12/23/2024 2:00 PM EDT Office Visit [place] [facility] [address], 2nd [place] [address] Radha Montelongo, CLINICAL TRAINING SPECIALIST [address] [place] [address] 12/29/2024 1:00 PM EDT Clinical Support [facility] 800 [facility], 2nd [place] [address] 12/29/2024 1:30 PM EDT Office Visit [facility] 800 [facility], [address]nd [place] [address] Danny Coon MD 2195 [facility] 125 [place] [address] documented as of this encounter Procedures Procedure Name Priority Date/Time Associated Diagnosis Comments MAMMOGRAPHY OUTSIDE IMAGES UPLOAD 09/20/2021 3:55 PM EDT documented in this encounter Results * Mammography Outside Images Upload (09/20/2021 3:55 PM EDT) Anatomical Region Laterality Modality Mammography 09/20/2021 3:55 PM EDT Cristian Griffith MD IMG BI PROCEDURES Final Re sult documented in this encounter Visit Diagnoses Not on filedocumented in this encounter Care Teams Operating Room Assistant Relationship Specialty Start Date End Date Pcp, No 800 [place] [address] PCP - General Family Medicine 03/31/21 11/12/21 Sergey Oh MD 800 [place] [address] PCP - General 11/13/21 Jean Mak MD 800 [facility] 2nd [place] [address] Surgeon Otolaryngology 11/21/21 documented as of this encounter
--- OUTSIDE RECORDS SUMMARY | 2024-11-01 12:29 | XMS_ITS | Encounter Summary ---
Author Organization Healthcare Address [address] [id number] Care Team Providers Care Grain Roaster Name Role Phone Pcp, No Primary Care Provider Sergey Oswald MD Primary Care Provider [phone] Jean Mak MD Unavailable [phone] Encounter Details Date Type Department Care Team (Late Contact Info) Description 01/22/2020 Orders Only External Location [address] [place] [phone] Provider, External Social History Tobacco Use Types [...] Description 12/23/2024 11:00 AM EDT Office Visit [facility] Multidisciplinary Oncology Clinic 800 [place] [phone] Edison Skaggs MD 800 [place] [address] 12/23/2024 11:00 AM EDT Clinical Support [facility] Multidisciplinary Oncology Clinic [address] [place] [phone] 12/23/2024 2:00 PM EDT Office Visit [place] [facility] [address], 2nd [place] [phone] Radha Montelongo, CONTRACTING EXECUTIVE [address] [place] [address] 12/29/2024 1:00 PM EDT Clinical Support [facility] 800 [facility], 2nd [place] [address] 12/29/2024 1:30 PM EDT Office Visit [facility] 800 [facility], [address]nd [place] [address] Danny Coon MD 2195 [facility] 125 [place] [address] documented as of this encounter Procedures Procedure Name Priority Date/Time Associated Diagnosis Comments CT NEURO OUTSIDE IMAGES 01/22/2020 5:45 PM EDT documented in this encounter Results * CT NEURO OUTSIDE IMAGES (01/22/2020 5:45 PM EDT) Anatomical Region Laterality Modality Computed Tomogra phy 01/22/2020 5:45 PM EDT External Provider IMG CT PROCEDURES Final Result documented in this encounter Visit Diagnoses Not on filedocumented in this encounter Care Teams Grain Roaster Relationship Specialty Start Date End Date Pcp, No 800 [place] [address] PCP - General Family Medicine 03/31/21 11/12/21 Sergey Oh MD 800 [place] [address] PCP - General 11/13/21 Jean Mak MD 800 [facility] 2nd [place] [address] Surgeon Otolaryngology 11/21/21 documented as of this encounter
--- OUTSIDE RECORDS SUMMARY | 2024-11-01 12:29 | XMS_ITS | Encounter Summary ---
Author Organization Healthcare Address [address] [place] [address] Care Team Providers Care Monkey Trainer Name Role Phone Sergey Oh MD Primary Care Provider [phone] Jean Mak MD Unavailable Encounter Details Date Type Department Care Team (Late st Contact Info) Description 10/06/2024 Results Follow-Up [facility] [address], 2nd [place] [phone] Danny Coon MD 2195 [facility] 125 [place] [address] Social History Tobacco Use Types [...] Upcoming Encounters Date Type Department Care Team ([facility] st Contact Info) Description 12/23/2024 11:00 AM EDT Office Visit [facility] Oncology [facility] [address] [place] [address] Edison Skaggs MD 800 [place] [address] 12/23/2024 11:00 AM EDT Clinical Support [facility] [address] [place] [address] 12/23/2024 2:00 PM EDT Office Visit [facility] Medicine Specialties [address], 2nd [place] [address] Radha Montelongo D, TALENT ACQUISITION DIRECTOR [address] [place] [address] 12/29/2024 1:00 PM EDT Clinical Support [facility] [address] [address] 12/29/2024 1:30 PM EDT Office Visit [facility] [address] [address] Danny Coon MD [address] [place] [address] documented as of this encounter Visit Diagnoses [...] documented as of this encounter Care Teams Monkey Trainer Relationship Specialty Start Date End Date Sergey Oh MD PCP - General 11/13/21 Jean Mak MD 800 [facility] Cancer [address] [address] Surgeon Otolaryngology 11/21/21 documented as of this encounter
--- OUTSIDE RECORDS SUMMARY | 2024-11-01 12:29 | XMS_ITS | Encounter Summary ---
Author Organization Healthcare Address [address] [place] [address] Care Team Providers Care Senior Chemical Engineer Name Role Phone Pcp, No Primary Care Provider Sergey Oswald MD Primary Care Provider [phone] Jean Mak MD Unavailable [phone] Encounter Details Date Type Department Care Team (Late st Contact Info) Description 10/31/2021 Lab Requisition [facility] H [facility] 800 [place] [address] Jean Mak MD 800 [facility] [address] [place] [phone] Nontoxic single thyroid nodule Social History Tobacco [...] Description 12/23/2024 11:00 AM EDT Office Visit [facility] Multidisciplinary Oncology Clinic 800 [place] [phone] Edison Skaggs MD 800 [place] [address] 12/23/2024 11:00 AM EDT Clinical Support [facility] 800 [place] [address] 12/23/2024 2:00 PM EDT Office Visit [place] [facility] [address], 2nd [place] [address] Radha Montelongo, FOOD STAND MANAGER [address] [place] [address] 12/29/2024 1:00 PM EDT Clinical Support [facility] 800 [facility], 2nd [place] [address] 12/29/2024 1:30 PM EDT Office Visit [facility] 800 [facility], 2nd [place] [address] Danny Coon MD 2195 [facility] [address] 125 [place] [address] documented as of this encounter Visit Diagnoses Diagnosis Nontoxic single thyroid nodule Nontoxic uninodular goiter documented in this encounter Care Teams Senior Chemical Engineer Relationship Specialty Start Date End Date Pcp, No 800 [place] [address] PCP - General Family Medicine 03/31/21 11/12/21 Sergey Oh MD 800 [place] [address] PCP - General 11/13/21 Jean Mak MD 800 [facility] 2nd [place] [address] Surgeon Otolaryngology 11/21/21 documented as of this encounter
--- OUTSIDE RECORDS SUMMARY | 2024-11-01 12:29 | XMS_ITS | Encounter Summary ---
Author Organization Healthcare Address [address] [id number] Care Team Providers Care Vascular Manager Name Role Phone Pcp, No Primary Care Provider Sergey Oswald MD Primary Care Provider [phone] Jean Mak MD Unavailable [phone] Encounter Details Date Type Department Care Team (Late Contact Info) Description 01/23/2020 Orders Only External Location [address] [place] [phone] Provider, External Social History Tobacco Use Types [...] Description 12/23/2024 11:00 AM EDT Office Visit [facility] Multidisciplinary Oncology Clinic 800 [place] [phone] Edison Skaggs MD 800 [place] [address] 12/23/2024 11:00 AM EDT Clinical Support [facility] Multidisciplinary Oncology Clinic [address] [place] [phone] 12/23/2024 2:00 PM EDT Office Visit [place] [facility] [address], 2nd [place] [address] Radha Montelongo, ROOFING PLANT SUPERVISOR [address] [place] [address] 12/29/2024 1:00 PM EDT Clinical Support [facility] 800 [facility], 2nd [place] [address] 12/29/2024 1:30 PM EDT Office Visit [facility] 800 [facility], 2nd [place] [address] Danny Coon MD 2195 [facility] 125 [place] [address] documented as of this encounter Procedures Procedure [...] on filedocumented in this encounter Care Teams Vascular Manager Relationship Specialty Start Date End Date Pcp, No 800 [place] [address] PCP - General Family Medicine 03/31/21 11/12/21 Sergey Oh MD 800 [place] [address] PCP - General 11/13/21 Jean Mak MD 800 [facility] 2nd [place] [address] Surgeon Otolaryngology 11/21/21 documented as of this encounter
--- OUTSIDE RECORDS SUMMARY | 2024-11-01 12:29 | XMS_ITS | Encounter Summary ---
Author Organization Healthcare Address [address] [place] [address] Care Team Providers Care Central Sterile Technician Name Role Phone Sergey Oh MD Primary Care Provider [phone] Jean Mak MD Unavailable [phone] Encounter Details Date Type Department Care Team (Late st Contact Info) Description 10/21/2023 Orders Only External Location 800 [place] [address] Provider, External Social History Tobacco Use Types [...] EDT Office Visit [facility] [address] [place] [phone] Edison Skaggs MD 800 [place] [address] 12/23/2024 11:00 AM EDT Clinical Support [facility] [address] [place] [phone] 12/23/2024 2:00 PM EDT Office Visit [facility] Medicine Specialties [address], 2nd [place] [address] Radha Montelongo D, CUSTOM LEATHER PRODUCTS MAKER [address] [facility] [address] [place] [address] 12/29/2024 1:00 PM EDT Clinical Support [facility] [address] [place] [phone] 12/29/2024 1:30 PM EDT Office Visit [facility] [address] [place] [phone] Danny Coon MD 2195 [facility] 125 [place] [address] documented as of this encounter Procedures Procedure [...] documented as of this encounter Care Teams Central Sterile Technician Relationship Specialty Start Date End Date Sergey Oh MD PCP - General 11/13/21 Jean Mak MD 800 [facility] Cancer [address] [phone] Surgeon Otolaryngology 11/21/21 documented as of this encounter
--- OUTSIDE RECORDS SUMMARY | 2024-11-01 12:29 | XMS_ITS | Encounter Summary ---
Author Organization Healthcare Address [address] [place] [address] Care Team Providers Care Document Advisor Name Role Phone Pcp, No Primary Care Provider Sergey Oswald MD Primary Care Provider [phone] Jean Mak MD Unavailable [phone] Encounter Details Date Type Department Care Team (Late Contact Info) Description 10/29/2021 Lab Requisition [facility] H Lab 800 [place] [phone] Jean Mak MD 800 [facility] Cancer [address] [address] Localized swelling, mass and lump, neck Social [...] Office Visit [facility]cology [facility] 800 [place] [address] Edison Skaggs MD 800 [place] [address] 12/23/2024 11:00 AM EDT Clinical Support [facility] 800 [place] [phone] 12/23/2024 2:00 PM EDT Office Visit [place] [facility] Medicine [facility] [address], 2[address] [place] [address] Radha Montelongo D, OUTSIDE SALESPERSON [address] [place] [phone] 12/29/2024 1:00 PM EDT Clinical Support [facility] 800 [facility], 2nd [place] [address] 12/29/2024 1:30 PM EDT Office Visit [facility] 800 [facility], [address]nd [place] [phone] Danny Coon MD 2195 [facility] 125 [place] [phone] documented as of this encounter Procedures Procedure Name Priority Date/Time Associated Diagnosis Comments CYTOLOGY CONSULT Routine 10/29/2021 10:3 1 AM EDT Localized swelling, mass and lump, neck documented in this encounter Results * Cytology Consult (10/29/2021 10:31 AM EDT) Case Report Cytology Case: [id number] Authorizing Provider: Jean Mak MD Collected: 10/29/2021 1031 Ordering Location: [facility] Lab Received: 10/29/2021 1031 Pathologist: Sourav Olvera MD Specimen: Neck, FNA, [id number] 10/30/2021 12:43 PM EDT [facility] Final Diagnosis A. 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 [id number] For clinical data and diagnosis (SUSPICIOUS) for this specimen ([id number]/FN A) see final report issued by [facility] Pathology Department. 10/30/2021 12:43 PM EDT [facility] Fine Needle Aspirate Neck structure / Unknown 10/29/2021 10:31 AM EDT 10/29/2021 10:31 AM EDT Jean Mak MD LAB PATHOLOGY ORDERABLES Fin al Result [facility] 800 [place] [address] documented in this encounter Visit Diagnoses Diagnosis Localized swelling, mass and lump, neck Swelling, mass, or lump in head and neck documented in this encounter Care Teams Document Advisor Relationship Specialty Start Date End Date Pcp, No 800 [place] [address] PCP - General Family Medicine 03/31/21 11/12/21 Sergey Oh MD [address] [place] [address] PCP - General 11/13/21 Jean Mak MD [address] [place] [address] [address] Surgeon Otolaryngology 11/21/21 documented as of this encounter
--- OUTSIDE RECORDS SUMMARY | 2024-11-01 12:29 | XMS_ITS | Encounter Summary ---
Author Organization Healthcare Address [address] [id number] Care Team Providers Care Receiving Associate Store Name Role Phone Pcp, No Primary Care Provider Sergey Oswald MD Primary Care Provider [phone] Jean Mak MD Unavailable [phone] Encounter Details Date Type Department Care Team (Late Contact Info) Description 11/19/2019 Orders Only External Location [address] [place] [phone] Provider, External Social History Tobacco Use Types [...] Description 12/23/2024 11:00 AM EDT Office Visit [facility] Multidisciplinary Oncology Clinic 800 [place] [phone] Edison Skaggs MD 800 [place] [address] 12/23/2024 11:00 AM EDT Clinical Support [facility] Multid[facility] Oncology Clinic 800 [place] [phone] 12/23/2024 2:00 PM EDT Office Visit [place] [facility] [address], 2nd [place] [address] Radha Montelongo, FIBERGLASS PRODUCT TESTER [address] [facility] [address] [place] [address] 12/29/2024 1:00 PM EDT Clinical Support [facility] 800 [facility], 2nd [place] [address] 12/29/2024 1:30 PM EDT Office Visit [facility] 800 [facility], [address]nd [place] [address] Danny Coon MD 2195 [facility] 125 [place] [address] documented as of this encounter Procedures Procedure [...] on filedocumented in this encounter Care Teams Receiving Associate Store Relationship Specialty Start Date End Date Pcp, No 800 [place] [address] PCP - General Family Medicine 03/31/21 11/12/21 Sergey Oh MD 800 [place] [address] PCP - General 11/13/21 Jean Mak MD 800 [facility] [address]nd [place] [address] Surgeon Otolaryngology 11/21/21 documented as of this encounter
--- OUTSIDE RECORDS SUMMARY | 2024-11-01 12:29 | XMS_ITS | Encounter Summary ---
Author Organization Healthcare Address [address] [place] [address] Care Team Providers Care Executive Housekeeper Name Role Phone Sergey Oh MD Primary Care Provider [phone] Jean Mak MD Unavailable [phone] Encounter Details Date Type Department Care Team (Latest Contact Info) Description 10/06/2024 Travel Social History Tobacco Use Types Packs/Day [...] EDT Office Visit [facility] [address] [place] [address] Edison Skaggs MD 800 [place] [address] 12/23/2024 11:00 AM EDT Clinical Support [facility] [address] [place] [phone] 12/23/2024 2:00 PM EDT Office Visit [facility] Medicine Specialties [address], 2nd [place] [address] Radha Montelongo D, MASTER NAVAL PARACHUTIST [address] [facility] [address] [place] [address] 12/29/2024 1:00 PM EDT Clinical Support [facility] [address] [place] [address] 12/29/2024 1:30 PM EDT Office Visit [facility] [address] [place] [phone] Danny Coon MD [address] [place] [address] 125 [place] [phone] documented as of this encounter Visit Diagnoses [...] documented as of this encounter Care Teams Executive Housekeeper Relationship Specialty Start Date End Date Sergey Oh MD PCP - General 11/13/21 Jean Mak MD 800 [facility] Cancer [address] [address] Surgeon Otolaryngology 11/21/21 documented as of this encounter
--- OUTSIDE RECORDS SUMMARY | 2024-11-01 12:29 | XMS_ITS | Encounter Summary ---
Author Organization Healthcare Address [address] [id number] Care Team Providers Care Secondary Teacher Name Role Phone Pcp, No Primary Care Provider Sergey Oswald MD Primary Care Provider [phone] Jean Mak MD Unavailable [phone] Encounter Details Date Type Department Care Team (Late Contact Info) Description 08/30/2019 Orders Only External Location [address] [place] [phone] Provider, External Social History Tobacco Use Types [...] 11:00 AM EDT Office Visit [facility] Multidisciplinary Oncology Clinic 800 [place] [phone] Edison Skaggs MD 800 [place] [address] 12/23/2024 11:00 AM EDT Clinical Support [facility] Multidisciplinary Oncology Clinic 800 [place] [phone] 12/23/2024 2:00 PM EDT Office Visit [place] [facility] [address], 2nd [place] [phone] Radha Montelongo, STUMP BLOWER [address] [facility] [address] [place] [phone] 12/29/2024 1:00 PM EDT Clinical Support [facility] 800 [facility], 2nd [place] [address] 12/29/2024 1:30 PM EDT Office Visit [facility] 800 [facility], 2nd [place] [address] Danny Coon MD 2195 [facility] 125 [place] [address] documented as of this encounter Procedures Procedure Name Priority Date/Time Associated Diagnosis Comments XR MSK OUTSIDE IMAGES 08/30/2019 8:40 PM EDT documented in this encounter Results * XR MSK OUTSIDE IMAGES (08/30/2019 8:40 PM EDT) Anatomical Region Laterality Modality Radiographic Jeniffer ging 08/30/2019 8:40 PM EDT External Provider IMG XR PROCEDURES Final Result documented in this encounter Visit Diagnoses Not on filedocumented in this encounter Care Teams Secondary Teacher Relationship Specialty Start Date End Date Pcp, No 800 [place] [address] PCP - General Family Medicine 03/31/21 11/12/21 Sergey Oh MD 800 [place] [address] PCP - General 11/13/21 Jean Mak MD 800 [facility] [address]nd [place] [phone] Surgeon Otolaryngology 11/21/21 documented as of this encounter
--- OUTSIDE RECORDS SUMMARY | 2024-11-01 12:29 | XMS_ITS | Clinical Summary ---
Author Organization [facility] Address [address] [place] [address] Care Team Providers Care Sewer And Drain Technician Name Role Phone Melia Knox Primary Care Provider [phone] Medications OTHER - BILL ONLY Ac tive [...] season) 2023 Depression Screening 03/31/2024 Influenza Vaccination (#1) 2024 Care Teams Sewer And Drain Technician Relationship Specialty Start Date End Date Melia Knox 7 [facility] [place] [address] PCP - General Family Medicine 09/29/17
--- OUTSIDE RECORDS SUMMARY | 2024-11-01 12:29 | XMS_ITS | Encounter Summary ---
Author Organization Healthcare Address [address] [id number] Care Team Providers Care Concrete Floater Name Role Phone Pcp, No Primary Care Provider Sergey Oswald MD Primary Care Provider [phone] Jean Mak MD Unavailable [phone] Encounter Details Date Type Department Care Team (Late Contact Info) Description 02/14/2020 Orders Only External Location [address] [place] [phone] Provider, External Social History Tobacco Use Types [...] Description 12/23/2024 11:00 AM EDT Office Visit [facility] Multidisciplinary Oncology Clinic 800 [place] [phone] Edison Skaggs MD 800 [place] [address] 12/23/2024 11:00 AM EDT Clinical Support [facility] Multidisciplinary Oncology Clinic [address] [place] [phone] 12/23/2024 2:00 PM EDT Office Visit [place] [facility] [address], 2nd [place] [address] Radha Montelongo, BLOCKER POLISHING [address] [facility] [address] [place] [phone] 12/29/2024 1:00 PM EDT Clinical Support [facility] [address] [facility], 2nd [place] [address] 12/29/2024 1:30 PM EDT Office Visit [facility] [address] [facility], [address]nd [place] [address] Danny Coon MD 2195 [facility] [address] [place] [address] documented as of this encounter Procedures Procedure [...] on filedocumented in this encounter Care Teams Concrete Floater Relationship Specialty Start Date End Date Pcp, No 800 [place] [address] PCP - General Family Medicine 03/31/21 11/12/21 Sergey Oh MD 800 [place] [address] PCP - General 11/13/21 Jean Mak MD 800 [facility] [address]nd [place] [address] Surgeon Otolaryngology 11/21/21 documented as of this encounter
--- OUTSIDE RECORDS SUMMARY | 2024-11-01 12:29 | XMS_ITS | Encounter Summary ---
Author Organization Healthcare Address [address] [place] [address] Care Team Providers Care Paralegal Name Role Phone Pcp, No Primary Care Provider Sergey Oswald MD Primary Care Provider [phone] Jean Mak MD Unavailable [phone] Encounter Details Date Type Department Care Team (Late st Contact Info) Description 09/04/2021 Orders Only External Location 800 [place] [phone] Cristian Griffith MD [address] [place] [address] Social History Tobacco Use Types Packs/Day Years [...] Office Visit [facility] 800 [place] [phone] Edison Skaggs MD 800 [place], [place] [address] 12/23/2024 11:00 AM EDT Clinical Support [facility] 800 [place] [address] 12/23/2024 2:00 PM EDT Office Visit [place] [facility] [address], 2nd [place] [address] Radha Montelongo, SEWER BUILDER [address] [place] [address] 12/29/2024 1:00 PM EDT Clinical Support [facility] 800 [facility], 2nd [place] [address] 12/29/2024 1:30 PM EDT Office Visit [facility] 800 [facility], [address]nd [place] [address] Danny Coon MD 2195 [facility] 125 [place] [address] documented as of this encounter [...] on filedocumented in this encounter Care Teams Paralegal Relationship Specialty Start Date End Date Pcp, No 800 [place] [address] PCP - General Family Medicine 03/31/21 11/12/21 Sergey Oh MD 800 [place] [address] PCP - General 11/13/21 Jean Mak MD 800 [facility] 2nd [place] [address] Surgeon Otolaryngology 11/21/21 documented as of this encounter
--- OUTSIDE RECORDS SUMMARY | 2024-11-01 12:29 | XMS_ITS | Encounter Summary ---
Author Organization Healthcare Address [address] [id number] Care Team Providers Care Baker Name Role Phone Pcp, No Primary Care Provider Sergey Oswald MD Primary Care Provider [phone] Jean Mak MD Unavailable [phone] Encounter Details Date Type Department Care Team (Late Contact Info) Description 07/15/2019 Orders Only External Location [address] [place] [phone] Provider, External Social History Tobacco Use Types [...] [facility] 800 [place] [phone] Edison Skaggs MD 800 [place] [address] 12/23/2024 11:00 AM EDT Clinical Support [facility] Multidisciplinary Oncology Clinic [address] [place] [phone] 12/23/2024 2:00 PM EDT Office Visit [place] [facility] [address], 2nd [place] [address] Radha Montelongo, TRAP OPERATOR [address] [facility] [address] [place] [address] 12/29/2024 1:00 PM EDT Clinical Support [facility] 800 [facility], 2nd [place] [address] 12/29/2024 1:30 PM EDT Office Visit [facility] 800 [facility], [address]nd [place] [address] Danny Coon MD 2195 [facility] 125 [place] [address] documented as of this encounter Procedures Procedure Name Priority Date/Time Associated Diagnosis Comments CT NEURO OUTSIDE IMAGES 07/15/2019 11:55 AM EDT documented in this encounter Results * CT NEURO OUTSIDE IMAGES (07/15/2019 11:55 AM EDT) Anatomical Region Laterality Modality Computed Tomogra phy 07/15/2019 11:5 5 AM EDT External Provider IMG CT PROCEDURES Final Result documented in this encounter Visit Diagnoses Not on filedocumented in this encounter Care Teams Baker Relationship Specialty Start Date End Date Pcp, No 800 [place] [address] PCP - General Family Medicine 03/31/21 11/12/21 Sergey Oh MD 800 [place] [address] PCP - General 11/13/21 Jean Mak MD 800 [facility] [address]nd [place] [address] Surgeon Otolaryngology 11/21/21 documented as of this encounter
--- OUTSIDE RECORDS SUMMARY | 2024-11-01 12:29 | XMS_ITS | Encounter Summary ---
Author Organization Healthcare Address [address] [id number] Care Team Providers Care Structural Architect Name Role Phone Pcp, No Primary Care Provider Sergey Oswald MD Primary Care Provider [phone] Jean Mak MD Unavailable [phone] Encounter Details Date Type Department Care Team (Late Contact Info) Description 11/19/2019 Orders Only External Location [address] [place] [phone] Provider, External Social History Tobacco Use Types [...] 12/23/2024 11:00 AM EDT Office Visit [facility] Multidisciplinary Oncology Clinic 800 [place] [phone] Edison Skaggs MD 800 [place] [address] 12/23/2024 11:00 AM EDT Clinical Support [facility] Multidisciplinary Oncology Clinic 800 [place] [phone] 12/23/2024 2:00 PM EDT Office Visit [place] [facility] [address], 2nd [place] [address] Radha Montelongo, ROPE LAYING MACHINE OPERATOR [address] [facility] [address] [place] [address] 12/29/2024 1:00 PM EDT Clinical Support [facility] 800 [facility], [address] [place] [address] 12/29/2024 1:30 PM EDT Office Visit [facility] 800 [facility], [address] [place] [address] Danny Coon MD 2[address] [facility] 125 [place] [address] documented as of this encounter Procedures Procedure Name Priority Date/Time Associated Diagnosis Comments NM OUTSIDE IMAGES 11/19/2019 9:41 AM EDT documented in this encounter Results * NM OUTSIDE IMAGES (11/19/2019 9:41 AM EDT) Anatomical Region Laterality Modality Nuclear Medicine 11/19/2019 9:41 AM EDT External Provider IMG NM PROCEDURES Final Result documented in this encounter Visit Diagnoses Not on filedocumented in this encounter Care Teams Structural Architect Relationship Specialty Start Date End Date Pcp, No 800 [place] [address] PCP - General Family Medicine 03/31/21 11/12/21 Sergey Oh MD 800 [place] [address] PCP - General 11/13/21 Jean Mak MD 800 [facility] 2nd [place] [address] Surgeon Otolaryngology 11/21/21 documented as of this encounter
--- OUTSIDE RECORDS SUMMARY | 2024-11-01 12:29 | XMS_ITS | Encounter Summary ---
Author Organization Healthcare Address [address] [place] [address] Care Team Providers Care Healthcare Management Consultant Name Role Phone Sergey Oh MD Primary Care Provider [phone] Jean Mak MD Unavailable [phone] Encounter Details Date Type Department Care Team (Late st Contact Info) Description 10/06/2024 Results Follow-Up [facility] [address], [address]nd [place] [address] Danny Coon MD 2195 [facility] 125 [place] [address] Social History Tobacco Use Types [...] Upcoming Encounters Date Type Department Care Team ([facility] st Contact Info) Description 12/23/2024 11:00 AM EDT Office Visit [facility] [address] [place] [address] Edison Skaggs MD 800 [place] [address] 12/23/2024 11:00 AM EDT Clinical Support [facility] [address] [place] [address] 12/23/2024 2:00 PM EDT Office Visit [facility] Medicine Specialties [address], 2nd [place] [address] Radha Montelongo D, FUR FINISHER [address] [place] [address] 12/29/2024 1:00 PM EDT Clinical Support [facility] [address] [address] 12/29/2024 1:30 PM EDT Office Visit [facility] [address] [address] Danny Coon MD [address] 125 [place] [address] documented as of this encounter Visit Diagnoses [...] documented as of this encounter Care Teams Healthcare Management Consultant Relationship Specialty Start Date End Date Sergey Oh MD PCP - General 11/13/21 Jean Mak MD 800 [facility] Cancer [address] [address] Surgeon Otolaryngology 11/21/21 documented as of this encounter
--- OUTSIDE RECORDS SUMMARY | 2024-11-01 12:29 | XMS_ITS | Encounter Summary ---
Author Organization Healthcare Address [address] [id number] Care Team Providers Care Picker Tender Helper Name Role Phone Pcp, No Primary Care Provider Sergey Oswald MD Primary Care Provider [phone] Jean Mak MD Unavailable [phone] Encounter Details Date Type Department Care Team (Late Contact Info) Description 01/22/2020 Orders Only External Location [address] [place] [phone] Provider, External Social History Tobacco Use Types [...] Description 12/23/2024 11:00 AM EDT Office Visit [facility] Multidisciplinary Oncology Clinic 800 [place] [phone] Edison Skaggs MD 800 [place] [address] 12/23/2024 11:00 AM EDT Clinical Support [facility] Multidisciplinary Oncology Clinic [address] [place] [phone] 12/23/2024 2:00 PM EDT Office Visit [place] [facility] [address], 2nd [place] [address] Radha Montelongo, DRESSING ROOM PORTER [address] [facility] D201 [place] [address] 12/29/2024 1:00 PM EDT Clinical Support [facility] 800 [facility], 2nd [place] [address] 12/29/2024 1:30 PM EDT Office Visit [facility] 800 [facility], [address]nd [place] [address] Danny Coon MD 2195 [facility] 125 [place] [address] documented as of this encounter Procedures Procedure Name Priority Date/Time Associated Diagnosis Comments XR MSK OUTSIDE IMAGES 01/22/2020 5:54 PM EDT documented in this encounter Results * XR MSK OUTSIDE IMAGES (01/22/2020 5:54 PM EDT) Anatomical Region Laterality Modality Radiographic Jeniffer ging 01/22/2020 5:54 PM EDT External Provider IMG XR PROCEDURES Final Result documented in this encounter Visit Diagnoses Not on filedocumented in this encounter Care Teams Picker Tender Helper Relationship Specialty Start Date End Date Pcp, No 800 [place] [address] PCP - General Family Medicine 03/31/21 11/12/21 Sergey Oh MD 800 [place] [address] PCP - General 11/13/21 Jean Mak MD 800 [facility] [address]nd [place] [address] Surgeon Otolaryngology 11/21/21 documented as of this encounter
--- OUTSIDE RECORDS SUMMARY | 2024-11-01 12:29 | XMS_ITS | Encounter Summary ---
Author Organization Healthcare Address [address] [place] [address] Care Team Providers Care Telegraphic Service Dispatcher Name Role Phone Sergey Oh MD Primary Care Provider [phone] Jean Mak MD Unavailable [phone] Encounter Details Date Type Department Care Team (Late st Contact Info) Description 09/14/2024 Orders Only [facility] [address] 2nd [place] [address] Archana Vargas, RN [facility] Social History Tobacco Use Types Packs/Day Years [...] Upcoming Encounters Date Type Department Care Team ([facility] Contact Info) Description 12/23/2024 11:00 AM EDT Office Visit [facility] 800 [place] [address] Edison Skaggs MD 800 [place] [address] 12/23/2024 11:00 AM EDT Clinical Support [facility] [address] [place] [address] 12/23/2024 2:00 PM EDT Office Visit [place] [facility] [address], [address]nd [place] [address] Radha Montelongo D, BULK PIGMENT REDUCER [address] [facility] [address] [place] [address] 12/29/2024 1:00 PM EDT Clinical Support [facility] [address] [address] 12/29/2024 1:30 PM EDT Office Visit [facility] [address] [phone] Danny Coon MD 2195 [facility] 125 [place] [address] documented as of this encounter Visit Diagnoses [...] documented as of this encounter Care Teams Telegraphic Service Dispatcher Relationship Specialty Start Date End Date Sergey Oh MD PCP - General 11/13/21 Jean Mak MD [address] [place] [address] [phone] Surgeon Otolaryngology 11/21/21 documented as of this encounter
[2024-11-05 19:10] LABS: Histoplasma Antibody Quant Negative (Neg:<1:1)
== END 2024-11-01 23:59 | disposition home or self-care (01) ==
LOC: LAB 12:26
PROVIDERS: PCP Family Medicine; Visit Provider Internal Medicine Pulmonary Disease
DX: J84.10 Pulmonary fibrosis, unspecified (principal); R91.1 Solitary pulmonary nodule; J43.9 Emphysema, unspecified
CPT/HCPCS: 36415; 82103; 82104; 86606; 86612; 86698

== ENCOUNTER 2024-12-27 07:41 | Outpatient (CLI) | payer OTHER, SELFPAY ==
--- OUTSIDE RECORDS SUMMARY | 2024-12-23 11:00 | XMS_ITS | Encounter Summary ---
Author Organization [facility] Address [address] [id number] Care Team Providers Care Chicken Picker Name Role Phone Sergey Oh MD Primary Care Provider [phone] Jean Mak MD Unavailable [phone] Reason for Referral * Imaging (Routine) - Pending Review Specialty Diagnoses / Procedures Referred By Contac t Referred To Contact Radiology Diagnoses History of colon cancer, stage II Procedures CT Chest w IV Contrast Franchesca Delacruz MD [address] [address] Phone: tel: fax: Referral ID Status Reason Start Date Expiration Date V isits Requested Visits Authorized [id number] Pending Review 12/23/2024 06/24/2026 1 1 * Imaging (Routine) - Pending Review Specialty Diagnoses / Procedures Referred By Contac t Referred To Contact Radiology Diagnoses History of colon cancer, stage II Procedures CT Abdomen Pelvis w IV Contrast Franchesca Delacruz MD [address] [address] Phone: tel: fax: Referral ID Status Reason Start Date Expiration Date V isits Requested Visits Authorized [id number] Pending Review 12/23/2024 06/24/2026 1 1 * Imaging (Routine) - Pending Review Specialty Diagnoses / Procedures Referred By Contac t Referred To Contact Radiology Diagnoses History of colon cancer, stage II Procedures CT Chest w IV Contrast Broderick Taylor MD [address] [place] [phone] Phone: tel: fax: Referral ID Status Reason Start Date Expiration Date V isits Requested Visits Authorized [id number] Pending Review 12/22/2024 06/23/2026 1 1 * Imaging (Routine) - Pending Review Specialty Diagnoses / Procedures Referred By Dhruv kebede Referred To Contact Radiology Diagnoses History of colon cancer, stage II Procedures CT Abdomen Pelvis w IV Contrast Broderick Taylor MD [address] [place] [phone] Phone: tel: fax: Referral ID Status Reason Start Date Expiration Date V isits Requested Visits Authorized [id number] Pending Review 12/22/2024 06/23/2026 1 1 Reason for Visit * Reason Comments Follow-up 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 Encounter Details Date Type Department Care Team (Latest Contact Info) Description 12/23/2024 11:00 AM EDT Office Visit [facility] Multidisciplinary Oncology Clinic [address] [place] [phone] Edison Skaggs MD [address] [place] [phone] History of colon cancer, stage II (Primary Dx) Social History Tobacco Use Types Packs/Day Years Used Date Smoking Tobacco: Every Day Cigarettes 1 32.3 Started: 03/31/1994 Passive Smoke Exposure: Current Smokeless [...] all 12/23/2024 11:46 AM EDT Cassie Felton documented as of this encounter Plan of Treatment Upcoming Encounters Date Type Department Care Team (Late st Contact Info) Description 12/29/2024 1:00 PM EDT Clinical Support [facility] [address] [place] [phone] 12/29/2024 1:30 PM EDT Office Visit [facility] [address] [place] [phone] Danny Coon MD [address] [place] [phone] 03/10/2025 10:50 AM EST Clinical Support [facility] [address] [place] [phone] 03/10/2025 11:00 AM EST Office Visit [facility] [address] [place] [phone] Edison Skaggs MD [address] [place] [address] [phone] Scheduled Orders Name Type Priority Associated Diagnoses Orde r Schedule CT Abdomen Pelvis w IV Contrast Imaging Routine History of colon cancer, stage II Expected: 12/23/2024 (Approximate), Expires: 06/25/2026 CT Chest w IV Contrast Imaging Routine History of colon cancer, stage II Expected: 12/23/2024 (Approximate), Expires: 06/25/2026 CT Abdomen Pelvis w IV Contrast Imaging Routine History of colon cancer, stage II Expected: 03/24/2025 (Approximate), Expires: 06/26/2026 CT Chest w IV Contrast Imaging Routine History of colon cancer, stage II Expected: 03/24/2025 (Approximate), Expires: 06/26/2026 documented as of this encounter Results * (ABNORMAL) CEA (12/23/2024 10:57 AM EDT) CEA, Serum 16.6(H) <4.0 ng/mL 12/23/2024 12:25 PM EDT [facility] Blood Venous blood specimen / Unknown (Port) Long-term Catheter / Unknown 12/23/2024 10:57 AM EDT 12/23/2024 11:44 AM EDT Narrative [facility] - 12/23/2024 12:25 PM EDT Normal range for smokers: < 5.5 ng/ml Normal range for non-smokers: <=4.0 ng/ml Performed by Brendon electrochemiluminescent immunoassay. Results obtained with different test methods or kits cannot be used interchangeably. us Broderick Taylor MD LAB BLOOD ORDERABLES Final R esult [facility] [address] [place] [address] documented in this encounter Visit Diagnoses Diagnosis [...] documented as of this encounter Care Teams Chicken Picker Relationship Specialty Start Date End Date Sergey Oh MD PCP - General 11/13/21 Jean Mak MD 800 [facility] [address] [address] Surgeon Otolaryngology 11/21/21 documented as of this encounter
--- OUTSIDE RECORDS SUMMARY | 2024-12-23 11:00 | XMS_ITS | Encounter Summary ---
Author Organization Healthcare Address [address] [place] [address] Care Team Providers Care Financial Compliance Manager Name Role Phone Sergey Oh MD Primary Care Provider [phone] Jean Mak MD Unavailable [phone] Encounter Details Date Type Department Care Team (Latest Contact Info) Description 12/23/2024 11:00 AM EDT Clinical Support [facility] Multidisciplinary Oncology Clinic [address] [place] [address] History of colon cancer, stage II Social [...] Miscellaneous Notes * Clinician Note - Carmita Villalobos, RN - 12/23/2024 11:00 AM EDT Port labs documented in this encounter Plan of Treatment Upcoming Encounters Date Type Department Care Team (Late st Contact Info) Description 12/29/2024 1:00 PM EDT Clinical Support [facility] [address] [place] [phone] 12/29/2024 1:30 PM EDT Office Visit [facility] [address] [place] [phone] Danny Coon MD [address] [place] [phone] 03/10/2025 10:50 AM EST Clinical Support [facility] [address] [place] [phone] 03/10/2025 11:00 AM EST Office Visit [facility] [address] [place] [phone] Edison Skaggs MD 800 [place], [place] [phone] documented as of this encounter Procedures Procedure Name Priority Date/Time Associated Diagnosis Comments CEA, SERUM Routine 12/23/2024 10:57 AM EDT History of colon cancer, stage II documented in this encounter Results * (ABNORMAL) CEA (12/23/2024 10:57 AM EDT) CEA, Serum 16.6(H) <4.0 ng/mL 12/23/2024 12:25 PM EDT [facility] Blood Venous blood specimen / Unknown (Port) Long-term Catheter / Unknown 12/23/2024 10:57 AM EDT 12/23/2024 11:44 AM EDT Narrative [facility] - 12/23/2024 12:25 PM EDT Normal range for smokers: < 5.5 ng/ml Normal range for non-smokers: <=4.0 ng/ml Performed by Brendon electrochemiluminescent immunoassay. Results obtained with different test methods or kits cannot be used interchangeably. us Broderick Tyalor MD LAB BLOOD ORDERABLES Final R esult [facility] [address] [place] [address] documented in this encounter Visit Diagnoses Diagnosis [...] documented as of this encounter Care Teams Financial Compliance Manager Relationship Specialty Start Date End Date Sergey Oh MD PCP - General 11/13/21 Jean Mak MD 800 [facility] [address] [phone] Surgeon Otolaryngology 11/21/21 documented as of this encounter
--- OUTSIDE RECORDS SUMMARY | 2024-12-27 07:43 | XMS_ITS | Encounter Summary ---
Author Organization Healthcare Address [address] [place] [address] Care Team Providers Care Mechanical Technician Name Role Phone Pcp, No Primary Care Provider Sergey Oswald MD Primary Care Provider [phone] Jean Mak MD Unavailable [phone] Encounter Details Date Type Department Care Team (Late Contact Info) Description 10/13/2018 Orders Only External Location 800 [place] [phone] Provider, External Social History Tobacco Use Types [...] Department Care Team (Late Contact Info) Description 12/29/2024 1:00 PM EDT Clinical Support [facility] 800 [facility], 2nd [place] [phone] 12/29/2024 1:30 PM EDT Office Visit [facility] 800 [facility], 2nd [place] [phone] Danny Coon MD [address] [phone] 03/10/2025 10:50 AM EST Clinical Support [facility] [address] [place] [address] 03/10/2025 11:00 AM EST Office Visit [facility] [address] [place] [address] Edison Skaggs MD 800 [place] [address] documented as of this encounter Procedures Procedure [...] on filedocumented in this encounter Care Teams Mechanical Technician Relationship Specialty Start Date End Date Pcp, No 800 [place] [address] PCP - General Family Medicine 03/31/21 11/12/21 Sergey Oh MD [address] [place] [address] PCP - General 11/13/21 Jean Mak MD 800 [facility] [address] [place] [phone] Surgeon Otolaryngology 11/21/21 documented as of this encounter
--- OUTSIDE RECORDS SUMMARY | 2024-12-27 07:43 | XMS_ITS | Encounter Summary ---
Author Organization Healthcare Address [address] [place] [address] Care Team Providers Care Office Auditor Name Role Phone Sergey Oh MD Primary Care Provider [phone] Jean Mak MD Unavailable [phone] Reason for Visit * Reason Comments Med Refill Encounter Details Date Type Department Care Team (Late st Contact Info) Description 05/12/2024 Refill [facility] [address] [place] [address] Danny Coon MD [facility] [address] [phone] Social History Tobacco Use Types [...] Upcoming Encounters Date Type Department Care Team ([facility] st Contact Info) Description 12/29/2024 1:00 PM EDT Clinical Support [facility] [address] [place] [phone] 12/29/2024 1:30 PM EDT Office Visit [facility] [address] [place] [phone] Danny Coon MD [address] [place] [phone] 03/10/2025 10:50 AM EST Clinical Support [facility] [address] [place] [phone] 03/10/2025 11:00 AM EST Office Visit [facility] [address] [place] [phone] Edison Skaggs MD 800 [place] [address] documented as of this encounter Visit Diagnoses [...] documented as of this encounter Care Teams Office Auditor Relationship Specialty Start Date End Date Sergey Oh MD PCP - General 11/13/21 Jean Mak MD [address] [phone] Surgeon Otolaryngology 11/21/21 documented as of this encounter
--- OUTSIDE RECORDS SUMMARY | 2024-12-27 07:43 | XMS_ITS | Encounter Summary ---
Author Organization Healthcare Address [address] [place] [address] Care Team Providers Care In Room Dining Server Name Role Phone Pcp, No Primary Care Provider Sergey Oswald MD Primary Care Provider [phone] Jean Mak MD Unavailable [phone] Encounter Details Date Type Department Care Team (Late Contact Info) Description 02/12/2017 Orders Only External Location [address] [place] [phone] Provider, External Social History Tobacco Use Types [...] [facility] 800 [facility], 2nd [place] [phone] 12/29/2024 1:30 PM EDT Office Visit [facility] 800 [facility], [address] [place] [phone] Danny Coon MD [address] [phone] 03/10/2025 10:50 AM EST Clinical Support [facility] [address] [place] [phone] 03/10/2025 11:00 AM EST Office Visit [facility] [address] [place] [phone] Edison Skaggs MD 800 [place] [address] documented as of this encounter Procedures Procedure [...] on filedocumented in this encounter Care Teams In Room Dining Server Relationship Specialty Start Date End Date Pcp, No 800 [place] [address] PCP - General Family Medicine 03/31/21 11/12/21 Sergey Oh MD [address] [place] [address] PCP - General 11/13/21 Jean Mak MD [address] [place] [address] Cancer Ctr [address] [place] [address] Surgeon Otolaryngology 11/21/21 documented as of this encounter
--- OUTSIDE RECORDS SUMMARY | 2024-12-27 07:43 | XMS_ITS | Encounter Summary ---
Author Organization Healthcare Address [address] [place] [address] Care Team Providers Care Records Clerk Name Role Phone Sergey Oh MD Primary Care Provider [phone] Jean Mak MD Unavailable [phone] Encounter Details Date Type Department Care Team (Late st Contact Info) Description 11/23/2021 Lab Requisition [facility] 800 [place] [address] Jean Mak MD 800 [facility] [address] [place] [phone] Malignant neoplasm of thyroid gland (CMS/HCC) Social History Tobacco Use Types Packs/Day Years Used Date Smoking Tobacco: Every Day Cigarettes 2 30.7 Started: 1994 Smokeless Tobacco: Former Comments:Vaping Alcohol [...] [facility] [address] [phone] 12/29/2024 1:30 PM EDT Office Visit [facility] [address] [phone] Danny Coon MD [address] [phone] 03/10/2025 10:50 AM EST Clinical Support [facility] Multidisciplinary Oncology Clinic [address] [place] [phone] 03/10/2025 11:00 AM EST Office Visit [facility] Multidisciplinary Oncology Clinic [address] [place] [phone] Edison Skaggs MD 800 [place], [place] [phone] documented as of this encounter Procedures Procedure Name Priority Date/Time Associated Diagnosis Comments SURGICAL PATHOLOGY CONSULT Routine 11/23/2021 10:54 AM EDT Malignant neoplasm of thyroid gland (CMS/HCC) documented in this encounter Results * Surgical Pathology Consult (11/23/2021 10:54 AM EDT) Case Report Sugical Pathology Consult Case: [id number] Authorizing Provider: Jean Mak MD Collected: 11/23/2021 1053 Ordering Location: [facility] Lab Received: 11/23/2021 1055 Pathologist: Sona Montiel MD Specimen: Thyroid, [id number] 11/27/2021 5:00 PM EDT [facility] Final Diagnosis A. THYROID, RIGHT LOBE, HEMITHYROIDECTOMY : (OUTSIDE CASE #[id number], COLLECTED DATED: 09/09/2019) - PAPILLARY THYROID CARCINOMA, [...] FOR EXTRANODAL EXTENSION. 11/27/2021 5:00 PM EDT [email or web address] at 1700 EDT Synoptic Checklist THYROID [...] IN LEFT LOBE. 11/27/2021 5:00 PM EDT [email or web address] Clinical Information C73 - Malignant neoplasm of thyroid gland [ICD-10-CM] 11/27/2021 5:00 PM EDT [email or web address] Gross Description A. [id number] Received along with a corresponding pathology report from [facility] are 39 slide(s) labeled outside case: [id number] collected on 09/09/2019. 11/27/2021 5:00 PM EDT [email or web address] Note: A resident was involved in the service. I attest I examined the relevant preparations for the specimens and confirmed the diagnosis or interpretation. 11/27/2021 5:00 PM EDT [email or web address] Tissue Thyroid structure / Unknown 11/23/2021 10:54 AM EDT 11/23/2021 10:55 AM EDT us Jean Mak MD LAB PATHOLOGY ORDERABLES Fin al Result [facility] [address] [place] [address] documented in this encounter Visit Diagnoses Diagnosis Malignant neoplasm of thyroid gland (CMS/HCC) Malignant neoplasm of thyroid gland documented in this encounter Additional Health Concerns Assessment Noted Time A fall risk assessment has been complete d for the patient 11/23/2021 12:37 PM EDT documented as of this encounter Care Teams Records Clerk Relationship Specialty Start Date End Date Sergey Oh MD PCP - General 11/13/21 Jean Mak MD 800 [facility] [address] [phone] Surgeon Otolaryngology 11/21/21 documented as of this encounter
--- OUTSIDE RECORDS SUMMARY | 2024-12-27 07:43 | XMS_ITS ---
Author Organization [facility] Address [address] 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 Cancer [...] 5-FU (Adrucil) infusion - for home use ([facility] supplied) CADD 100MLfluoroura cil (Adrucil)OXALI platin (Eloxatin) IVPB Therapy Complete Franchesca Delacruz MD 3 of 3 cycles started Lifetime Dose Tracking * Chemical Lifetime Dose Automatic Entry Manual Entr y Fluoro Time 0.053 minutes 0.053 minutes 0 minutes Air Kerma 0.15 mGy 0.15 mGy 0 mGy Resolved Problems Problem Noted Date Diagnosed Date Resolved Date Second hand smoke exposure 03/13/2022 0 12/19/2024 Dysphonia 02/25/2022 12/19/[address] 11/23/2021 12/19/2024 Arthritis 11/13/2021 12/19/2024
--- OUTSIDE RECORDS SUMMARY | 2024-12-27 07:43 | XMS_ITS | Encounter Summary ---
Author Organization Healthcare Address [address] [place] [address] Care Team Providers Care Toll Bridge Operator Name Role Phone Sergey Oh MD Primary Care Provider [phone] Jean Mak MD Unavailable [phone] Reason for Visit * Reason Comments Med Refill Encounter Details Date Type Department Care Team (Late st Contact Info) Description 12/17/2024 Refill Pav [facility] Head, Neck & Respiratory [address], [address]nd [place] [address] Danny Coon MD [facility] [address] Social History Tobacco Use Types [...] Upcoming Encounters Date Type Department Care Team ([facility] st Contact Info) Description 12/29/2024 1:00 PM EDT Clinical Support Pav CC Head, Neck & Respiratory 800 [facility], [address]nd [place] [address] 12/29/2024 1:30 PM EDT Office Visit Pav [facility] Head[facility] Neck & Respiratory [address] [address] [place] [address] [place] [phone] 03/10/2025 10:50 AM EST Clinical Support [facility] [address] [place] [phone] 03/10/2025 11:00 AM EST Office Visit [facility] [address] [place] [address] Edison Skaggs MD [address] [place] [address] documented as of this encounter Visit Diagnoses [...] documented as of this encounter Care Teams Toll Bridge Operator Relationship Specialty Start Date End Date Sergey Oh MD PCP - General 11/13/21 Jean Mak MD [address] [place], [place] [address]ach Cancer [address] [address] Surgeon Otolaryngology 11/21/21 documented as of this encounter
--- OUTSIDE RECORDS SUMMARY | 2024-12-27 07:43 | XMS_ITS | Clinical Summary ---
Author Organization [facility] Address [address] [place] [address] Care Team Providers Care Right Of Way Cutter Name Role Phone Sergey Oh MD Primary Care Provider [phone] Jean Mak MD Unavailable [phone] Allergies No known active allergies Medications albuterol 108 (90 Base) MCG/ACT inhaler INHALE 2 PUFFS BY MOUTH FOUR TIMES DAILY NEEDED FOR SHORTNESS OF BREATH OR WHEEZING 024 Active HYDROcodone-aceta minophen ([place]) 7.5-325 MG tablet TAKE ONE (1) TABLET THREE (3) TIMES A DAY BY ORAL ROUTE AFTER MEAL(S) FOR 30 DAYS. Active OLANZapine zydis (ZyPREXA ZYDIS) 5 MG disintegrating tablet Take 1 tablet (5 mg) by mouth every night. 30 tablet 024 Active Additional Information Patient not taking.Reported on 12/23/2024 cyclobenzaprine (Flexeril) 10 MG tablet Take 1 tablet (10 mg) by mouth 3 (three) times a day if needed for muscle spasms. Active hydrOXYzine HCl (Atarax) 50 MG tablet Take by mouth. Activ e tenofovir disoproxil fumarate (Viread) 300 MG tabletIndications :Chronic viral hepatitis B without delta agent and without coma (CMS/HCC) Take 1 tablet (300 mg) by mouth daily. 30 tablet 11 025 2025 Active ipratropium-albut armando (Duo-Neb) 0.5-2.5 mg/3 mL nebulizer solution Inhale 3 mL 4 times a day by nebulization route as directed for 30 days. 025 Active ketorolac (Toradol) 10 MG tablet TAKE ONE (1) TABLET FOUR (4) TIMES A DAY BY ORAL ROUTE AFTER MEAL(S) FOR FIVE (5) DAYS. Active loperamide (Imodium) 2 MG capsule Active prochlorperazine (Compazine) 10 MG tablet Active levothyroxine (Synthroid, Levoxyl) 125 MCG tablet Take 1 tablet by mouth daily. 90 tablet 1 025 Active ergocalciferol 1.25 MG (10704 UT) capsule TAKE ONE (1) CAPSULE BY MOUTH ONE (1) TIME PER WEEK. 12 capsule 3 025 Active docusate sodium (Colace) 100 MG capsule take one (1) capsule by mouth once daily Active ergocalciferol (Drisdol) 1.25 MG (55270 UT) capsule Take 1 capsule (50,000 Units) by mouth 1 (one) time per week. 12 capsule 3 024 2024 Discontinued polyethylene glycol-electrolyt es (Nulytely) 420 g solution Take 4,000 mL by mouth 1 time for 1 dose. 4000 mL 025 2024 bisacodyl (Dulcolax) 5 MG EC tablet Take 4 tablets by mouth 1 time for 1 dose. Do not crush, chew, or split. 4 tablet 025 2024 Active Problems Problem Noted Date Diagnosed Date [...] left nasal bone fracture Post-surgical hypothyroidism 10/23/2019 Resolved Problems Problem Noted Date Diagnosed Date Resolved Date Second hand smoke exposure 03/13/2022 0 12/19/2024 Dysphonia 02/25/2022 12/19/[address] 11/23/2021 12/19/2024 Arthritis 11/13/2021 12/19/2024 Encounters Date Type Department Care Team Description 12/23/2024 11:00 AM EDT Clinical Support [facility] [address] [place] [address] History of colon cancer, stage II 12/23/2024 11:00 AM EDT Office Visit [facility] [address] [place] [address] Edison Skaggs MD History of colon cancer, stage II (Primary Dx) 12/23/2024 Travel 12/17/2024 Refill Pav CC Head, Neck & Respiratory 800 [facility], 2nd [place] [address] Danny Coon MD 10/06/2024 11:15 AM EDT Clinical Support Pav CC Head, Neck & Respiratory 800 [facility], 2nd [place] [address] Papillary microcarcinoma of thyroid (CMS/HCC); Malignant neoplasm of sigmoid colon (CMS/HCC) 10/06/2024 10:00 AM EDT Office Visit Pav CC Head, Neck & Respiratory 800 [facility], [address] [place] [address] Danny Coon MD 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); Multiple lung nodules on CT; Post-surgical hypothyroidism; Vasomotor symptoms due to menopause; Vitamin D deficiency 10/06/2024 Results Follow-Up Pav [facility] Head, Neck & Respiratory [address] [facility], [address] [place] [address] Danny Coon MD 10/06/2024 Results Follow-Up Pav [facility] Head[facility] Neck & Respiratory [address] [facility], [address] [place] [address] Danny Coon MD 10/06/2024 Travel 09/29/2024 10:59 AM EDT - 09/29/2024 11:59 PM EDT Hospital Encounter [facility] Radiology [address] [place] [address] Chronic viral hepatitis B without delta agent and without coma (CMS/HCC) Discharge Disposition: Home or Self Care 09/29/2024 Travel from Last 3 Months Immunizations Immunization [...] Mass Index 28.22 12/23/2024 11:38 AM EDT Plan of Treatment Upcoming Encounters Date Type Department Care Team ([facility] Contact Info) Description 12/29/2024 1:00 PM EDT Clinical Support Pav CC Head, Neck & Respiratory [address] [facility], 2nd [place] [address] 12/29/2024 1:30 PM EDT Office Visit Pav CC Head, Neck & Respiratory 800 [facility], 2nd [place] [address] Danny Coon MD [address] [place] [address] 03/10/2025 10:50 AM EST Clinical Support [facility] [address] [place] [address] 03/10/2025 11:00 AM EST Office Visit [facility] [address] [place] [address] Edison Skaggs MD [address] [place], [place] [phone] Health Maintenance Due Date Last Done Comments [facility]-HIV Screening 1978 [facility]-Infant/Child/Adol SDOH Screenings 1978 [facility]- SDOH Screenings 1996 [facility]-Adult SDOH Screenings 1996 [facility]-Hepatitis B Vaccines (1 of 3 - 19+ 3-dose series) 1997 09/29/2024, 06/21/2024, 06/21/2024, Additional history exists [facility]-Zoster Vaccines (1 of 2) 1997 [facility]-Pap Smear 1999 [facility]-Cervical Cancer Screening 2008 [facility]-HPV/Cotest 2008 [facility]-YUWDA-05 Vaccine (2 - Moderna risk series) 12/14/2021 11/16/2021 CT Colonography 2023 Colonoscopy 2023 FIT-DNA 2023 FIT 2023 FOBT 2023 Sigmoidoscopy 2023 [facility]-Colorectal Cancer Screening 2023 [facility]-Hepatitis A Vaccines (2 of 2 - Risk 2-dose series) 11/19/2023 05/21/2023 [facility]-Influenza Vaccine (#1) 11/29/202402/19, 11/16/2021, 01/30/2017 [facility]-DTaP,Tdap,and Td Vaccines (3 - Td or Tdap) 06/28/2025 06/29/2015, 02/23/2014 [facility]-Depression Screening 12/23/2025 025, 06/21/2024, 01/08/2022 [facility]-Hepatitis C Screening Completed [...] this topic Medical Devices Implanted Type Area Curriculum Writer Device Identifier Shelf Expiration Date Model / Serial / Lot Port Clearvue Power 8fr - [id number] Implanted:Qt y: 1 on 01/22/2024 by Clay in, Whitney Smith MD at [facility] Catheter Right: Subclavian Bard [employer] V[employer]-[id number] MEDIPORT 05/28/2025 [id number] / / [id number] Procedures Procedure Name Priority Date/Time Associated Diagnosis Comments CEA, SERUM Routine 12/23/2024 10:57 AM EDT History of colon cancer, stage II THYROGLOBULIN (INHOUSE- REFLEX ONLY) Routine 10/06/2024 11:21 [...] Recently Relevant to Health Maintenance Results * (ABNORMAL) CEA (12/23/2024 10:57 AM EDT) Only the most recent of2 resultswithin the time period is included. CEA, Serum 16.6(H) <4.0 ng/mL 12/23/2024 12:25 PM EDT [facility] Blood Venous blood specimen / Unknown (Port) Long-term Catheter / Unknown 12/23/2024 10:57 AM EDT 12/23/2024 11:44 AM EDT Narrative [facility] - 12/23/2024 12:25 PM EDT Normal range for smokers: < 5.5 ng/ml Normal range for non-smokers: <=4.0 ng/ml Performed by Brendon electrochemiluminescent immunoassay. Results obtained with different test methods or kits cannot be used interchangeably. Broderick Taylor MD LAB BLOOD ORDERABLES Final R esult Performing Organization Address City/[facility]/ZIP Co de Phone Number [facility] [address] [place] [address] * Thyroglobulin Antibody and Thyroglobulin (MARIA TERESA or LC-MSMS) (10/06/2024 11:21 AM EDT) Thyroglobulin Antibody <1.0 <4.0 IU/mL 10/06/2024 12:51 PM EDT [facility] Blood Venous blood specimen / Unknown Venipuncture / Unknown 10/06/2024 11:21 AM EDT 10/06/2024 11:32 AM EDT Danny Coon MD LAB BLOOD ORDERABLES Final Resu lt [facility] [address] [place] [address] * Thyroglobulin (10/06/2024 11:21 AM EDT) Thyroglobulin (Inhouse) 0.1 <=31.8 ng/mL 10/06/2024 1:32 PM EDT [facility] Blood Venous blood specimen / Unknown Venipuncture / Unknown 10/06/2024 11:21 AM EDT 10/06/2024 11:32 AM EDT Narrative [facility] - 10/06/2024 1:32 PM EDT Performed by Fransico Rose 2nd generation TG chemiluminescent immunoassay. Results obtained with different test methods or kits cannot be used interchangeably. us Danny Coon MD LAB BLOOD ORDERABLES Final Resu lt [facility] [address] [place] [address] * US Liver Screen (09/29/2024 11:29 AM [...] are based on Ultrasound LI-RADS version 2017. [email or web address] CRITICAL RESULT: No. COMMUNICATION: Per [...] recommendations are based on UltrasoundLI-RADS version 2017. [email or web address] CRITICAL RESULT: No. COMMUNICATION: Per this written report. Drafted by Dilan Ruiz MD on 09/29/2024 1:09 PM Final report signed by Dilan Ruiz MD on 09/29/2024 1:12 PM us Radha Montelongo PAPER LATCHER IMG US PROCEDURES Final Re sult * (ABNORMAL) Hepatitis panel, acute (11/02/2021 2:42 PM EDT) Hepatitis B Surf Antigen Positive(A) Negative 11/02/2021 6:08 PM EDT [facility] Hepatitis C Antibody Negative Negative 11/02/2021 6:08 PM EDT [facility] Hepatitis A Antibody IgM Negative Negative 11/02/2021 6:08 PM EDT [facility] Hepatitis B Core Antibody IgM Negative Negative 11/02/2021 6:08 PM EDT [facility] Blood Venous blood specimen / Unknown Venipuncture / Unknown 11/02/2021 2:42 PM EDT 11/02/2021 2:50 PM EDT us Jean Mak MD LAB BLOOD ORDERABLES Final R esult Performing Organization Address City/State/[facility] Co de Phone Number [facility] [address] [place] [address] from Last 3 Months or Most Recently Relevant to Health Maintenance Insurance [facility] MEDICAID Advance Directives * Full Code (Latest Code Status on File) Date Activated Date Inactivated Comments 12/10/2021 3:22 PM 12/11/2021 9:56 PM Question Answer Comments Patient has decision-making capacity? Yes Care Teams Right Of Way Cutter Relationship Specialty Start Date End Date Sergey Oh MD PCP - General 11/13/21 Jean Mak MD 800 [facility] Cancer [address] [address] Surgeon Otolaryngology 11/21/21
--- OUTSIDE RECORDS SUMMARY | 2024-12-27 07:43 | XMS_ITS | Clinical Summary ---
Author Organization [facility] Address [address] [place] [address] [place] [address] Phone Care Team Providers Care Hide Cleaner Name Role Phone LisetteRiddhi logan Dia Primary Care Provider [phone] Allergies No known active allergies Medications albuterol [...] Date Smoking Tobacco: Every Day Cigarettes 1 34.7 Started: 03/31/1990 Smokeless Tobacco: Never Alcohol Use [...] series) 11/19/2023 05/21/2023 COVID-19 Vaccine (2 - 2024-2 6 season) 2024 11/16/2021 Influenza Vaccine (#1) 2024 , 01/30/2017 DTaP/TDaP/Td (3 - Td or Tdap) 06/28/2025, 02/23/2014 Pneumococcal Vaccine 0-49 Completed 11/16/2021 Meningococcal B Vaccine Aged Out No l onger eligible based on patient's age to complete this topic Insurance [address] [place] [address] [place] [facility] [address] [place] [address] MEDICAID Care Teams Hide Cleaner Relationship Specialty Start Date End Date Riddhi Knox [address] [place] [address] PCP - General Legislative Aide 03/01/13
--- OUTSIDE RECORDS SUMMARY | 2024-12-27 07:43 | XMS_ITS | Encounter Summary ---
Author Organization Healthcare Address [address] [place] [address] Care Team Providers Care Final Coat Sprayer Name Role Phone Pcp, No Primary Care Provider Sergey Oswald MD Primary Care Provider [phone] Jean Mak MD Unavailable [phone] Encounter Details Date Type Department Care Team (Late Contact Info) Description 06/06/2016 Orders Only External Location [address] [place] [address] Provider, External Social History Tobacco Use Types [...] Neck & Respiratory 800 [facility], 2nd [place] [address] 12/29/2024 1:30 PM EDT Office Visit Pav CC Head, Neck & Respiratory 800 [facility], 2nd [place] [address] Danny Coon MD [address] [address] 03/10/2025 10:50 AM EST Clinical Support [facility] [address] [place] [address] 03/10/2025 11:00 AM EST Office Visit [facility] [address] [place] [address] Edison Skaggs MD [address] [place] [address] documented as of this encounter Procedures Procedure [...] on filedocumented in this encounter Care Teams Final Coat Sprayer Relationship Specialty Start Date End Date Pcp, No [address] [place] [address] PCP - General Family Medicine 03/31/21 11/12/21 Sergey Oh MD [address] [place] [address] PCP - General 11/13/21 Jean Mak MD 800 [facility] 2nd [place] [address] Surgeon Otolaryngology 11/21/21 documented as of this encounter
--- OUTSIDE RECORDS SUMMARY | 2024-12-27 07:43 | XMS_ITS | Encounter Summary ---
Author Organization Healthcare Address [address] [place] [address] Care Team Providers Care Manager Financial Planning Name Role Phone Sergey Oh MD Primary Care Provider [phone] Jean Mak MD Unavailable Encounter Details Date Type Department Care Team (Latest Contact Info) Description 12/23/2024 Travel Social History Tobacco Use Types Packs/Day [...] Respiratory 800 [facility], [address] [place] [address] 12/29/2024 1:30 PM EDT Office Visit Pav CC Head, Neck & Respiratory 800 [facility], [address] [place] [address] Danny Coon MD [address] [place] [phone] 03/10/2025 10:50 AM EST Clinical Support [facility] [address] [place] [address] 03/10/2025 11:00 AM EST Office Visit [facility] [address] [place] [address] Edison Skaggs MD 800 [place], [place] [phone] documented as of this encounter Visit Diagnoses [...] documented as of this encounter Care Teams Manager Financial Planning Relationship Specialty Start Date End Date Sergey Oh MD PCP - General 11/13/21 Jean Mak MD [address] [place] [address] [address] [place] [address] Surgeon Otolaryngology 11/21/21 documented as of this encounter
--- OUTSIDE RECORDS SUMMARY | 2024-12-27 07:44 | XMS_ITS | Encounter Summary ---
Author Organization Healthcare Address [address] [place] [address] Care Team Providers Care Retort Furnace Helper Name Role Phone Pcp, No Primary Care Provider Sergey Oswald MD Primary Care Provider [phone] Jean Mak MD Unavailable [phone] Encounter Details Date Type Department Care Team (Late Contact Info) Description 08/09/2021 Orders Only External Location [address] [place] [address] Provider, External Social History Tobacco Use Types [...] Pav CC Head, Neck & Respiratory 800 [facility], 2nd [place] [address] 12/29/2024 1:30 PM EDT Office Visit Pav CC Head, Neck & Respiratory 800 [facility], 2nd [place] [address] Danny Coon MD [address] [address] 03/10/2025 10:50 AM EST Clinical Support [facility] [address] [place] [address] 03/10/2025 11:00 AM EST Office Visit [facility] [address] [place] [address] Edison Skaggs MD 800 [place] [address] documented as of this encounter Procedures Procedure [...] on filedocumented in this encounter Care Teams Retort Furnace Helper Relationship Specialty Start Date End Date Pcp, No [address] [place] [address] PCP - General Family Medicine 03/31/21 11/12/21 Sergey Oh MD [address] [place] [address] PCP - General 11/13/21 Jean Mak MD 800 [facility] [address] [place] [address] Surgeon Otolaryngology 11/21/21 documented as of this encounter
--- OUTSIDE RECORDS SUMMARY | 2024-12-27 07:44 | XMS_ITS | Encounter Summary ---
Author Organization Healthcare Address [address] [place] [address] Care Team Providers Care Car Inspector Name Role Phone Pcp, No Primary Care Provider Sergey Oswald MD Primary Care Provider [phone] Jean Mak MD Unavailable [phone] Encounter Details Date Type Department Care Team (Late Contact Info) Description 01/22/2020 Orders Only External Location 800 [place] [address] Provider, External Social History Tobacco Use Types [...] CC Head, Neck & Respiratory 800 [facility], [address]nd [place] [address] 12/29/2024 1:30 PM EDT Office Visit Pav CC Head, Neck & Respiratory [address] [facility], [address]nd [place] [address] Danny Coon MD [address] [address] 03/10/2025 10:50 AM EST Clinical Support [facility] [address] [place] [address] 03/10/2025 11:00 AM EST Office Visit [facility] [address] [place] [address] Edison Skaggs MD 800 [place] [address] documented as of this encounter Procedures Procedure [...] on filedocumented in this encounter Care Teams Car Inspector Relationship Specialty Start Date End Date Pcp, No [address] [place] [address] PCP - General Family Medicine 03/31/21 11/12/21 Sergey Oh MD [address] [place] [address] PCP - General 11/13/21 Jean Mak MD 800 [facility] [address] [place] [phone] Surgeon Otolaryngology 11/21/21 documented as of this encounter
--- OUTSIDE RECORDS SUMMARY | 2024-12-27 07:44 | XMS_ITS | Encounter Summary ---
Author Organization Healthcare Address [address] [place] [address] Care Team Providers Care Hospital Ward Clerk Name Role Phone Pcp, No Primary Care Provider Sergey Oswald MD Primary Care Provider [phone] Jean Mak MD Unavailable [phone] Encounter Details Date Type Department Care Team (Late Contact Info) Description 02/14/2020 Orders Only External Location 800 [place] [address] Provider, External Social History Tobacco Use Types [...] Head, Neck & Respiratory 800 [facility], 2nd [place] [address] 12/29/2024 1:30 PM EDT Office Visit Pav CC Head, Neck & Respiratory 800 [facility], 2nd [place] [address] Danny Coon MD [address] [address] 03/10/2025 10:50 AM EST Clinical Support [facility] [address] [place] [address] 03/10/2025 11:00 AM EST Office Visit [facility] [address] [place] [phone] Edison Skaggs MD 800 [place] [address] documented as of this encounter Procedures Procedure [...] on filedocumented in this encounter Care Teams Hospital Ward Clerk Relationship Specialty Start Date End Date Pcp, No 800 [place] [address] PCP - General Family Medicine 03/31/21 11/12/21 Sergey Oh MD [address] [place] [address] PCP - General 11/13/21 Jean Mak MD 800 [facility] [address] [place] [phone] Surgeon Otolaryngology 11/21/21 documented as of this encounter
--- OUTSIDE RECORDS SUMMARY | 2024-12-27 07:44 | XMS_ITS | Encounter Summary ---
Author Organization Healthcare Address [address] [place] [address] Care Team Providers Care Manufacturing Assistant Name Role Phone Pcp, No Primary Care Provider Sergey Oswald MD Primary Care Provider [phone] Jean Mak MD Unavailable [phone] Encounter Details Date Type Department Care Team (Late Contact Info) Description 01/23/2020 Orders Only External Location 800 [place] [address] Provider, External Social History Tobacco Use Types [...] CC Head, Neck & Respiratory 800 [facility], 2nd [place] [address] 12/29/2024 1:30 PM EDT Office Visit Pav [facility] Respiratory 800 [facility], 2nd [place] [address] Danny Coon MD [address] [address] 03/10/2025 10:50 AM EST Clinical Support [facility] 800 [place] [address] 03/10/2025 11:00 AM EST Office Visit [facility] 800 [place] [address] Edison Skaggs MD 800 [place] [address] documented as of this encounter Procedures Procedure Name Priority Date/Time Associated Diagnosis Comments CT OUTSIDE IMAGES 01/23/2020 12:07 AM EDT documented in this encounter Results * CT OUTSIDE IMAGES (01/23/2020 12:07 AM EDT) Anatomical Region Laterality Modality Computed Tomogra phy 01/23/2020 12:0 7 AM EDT us External Provider IMG CT PROCEDURES Final Result documented in this encounter Visit Diagnoses Not on filedocumented in this encounter Care Teams Manufacturing Assistant Relationship Specialty Start Date End Date Pcp, No 800 [place] [address] PCP - General Family Medicine 03/31/21 11/12/21 Sergey Oh MD [address] [place] [address] PCP - General 11/13/21 Jean Mak MD 800 [facility] [address] [place] [phone] Surgeon Otolaryngology 11/21/21 documented as of this encounter
--- OUTSIDE RECORDS SUMMARY | 2024-12-27 07:44 | XMS_ITS | Encounter Summary ---
Author Organization Healthcare Address [address] [place] [address] Care Team Providers Care Ludlow Machine Operator Name Role Phone Sergey Oh MD Primary Care Provider [phone] Jean Mak MD Unavailable [phone] Encounter Details Date Type Department Care Team (Late st Contact Info) Description 12/06/2023 Orders Only External Location 800 [place] [address] Daryl Pina MD [address] [place] [address] Social History Tobacco Use Types Packs/Day [...] [facility] Contact Info) Description 12/29/2024 1:00 PM EDT Clinical Support Pav [facility] Head[facility] Neck & Respiratory 800 [facility], 2nd [place] [address] 12/29/2024 1:30 PM EDT Office Visit Pav [facility] Head[facility] Neck & Respiratory [address] [facility], [address] [place] [phone] Danny Coon MD [address] [address] 03/10/2025 10:50 AM EST Clinical Support [facility] [address] [place] [phone] 03/10/2025 11:00 AM EST Office Visit [facility] [address] [place] [phone] Edison Skaggs MD [address] [place] [address] [phone] documented as of this encounter Procedures Procedure Name Priority Date/Time Associated Diagnosis Comments CT OUTSIDE IMAGES 12/06/2023 6:42 PM EDT documented in this encounter Results * CT OUTSIDE IMAGES (12/06/2023 6:42 PM EDT) Anatomical Region Laterality Modality Computed Tomogra phy 12/06/2023 6:42 PM EDT us Daryl Pina MD IMG CT PROCEDURES Final [...] documented as of this encounter Care Teams Ludlow Machine Operator Relationship Specialty Start Date End Date Sergey Oh MD PCP - General 11/13/21 Jean Mak MD [address] [address] Surgeon Otolaryngology 11/21/21 documented as of this encounter
--- OUTSIDE RECORDS SUMMARY | 2024-12-27 07:44 | XMS_ITS | Encounter Summary ---
Author Organization Healthcare Address [address] [place] [id number] Care Team Providers Care In Shop Service Technician Name Role Phone Sergey Oh MD Primary Care Provider [phone] Jean Mak MD Unavailable [phone] Encounter Details Date Type Department Care Team (Late st Contact Info) Description 01/08/2024 Lab Requisition [facility] H Lab 800 [place] [address] Broderick Taylor MD 800 [facility] [address] [place] [address] Polyp of colon Social History [...] Pav [facility] Head[facility] Neck & Respiratory 800 [facility], 2nd [place] [address] 12/29/2024 1:30 PM EDT Office Visit Pav [facility] Head, Neck & Respiratory 800 [facility], [address] [place] [phone] Danny Coon MD [address] [place] [address] 03/10/2025 10:50 AM EST Clinical Support [facility] Mult[facility] On[facility] [address] [place] [phone] 03/10/2025 11:00 AM EST Office Visit [facility] [address] [place] [phone] Edison Skaggs MD 800 [place] [address] documented as of this encounter Procedures Procedure Name Priority Date/Time Associated Diagnosis Comments SURGICAL PATHOLOGY CONSULT Routine 01/08/2024 10:42 AM EDT Polyp of colon documented in this encounter Results * Surgical Pathology Consult (01/08/2024 10:42 AM EDT) Case Report Sugical Pathology Consult Case: [id number] Authorizing Provider: Broderick Taylor MD Collected: 01/08/20241041 Ordering Location: [facility] Received: 01/08/20241041 Pathologist: Dimas Becker DO Specimen: Sigmoid Colon, [id number] 1:22 PM EDT [facility] Final Diagnosis OUTSIDE SLIDES; [id number], A-C; 12/12/23 A. COLON, POLYP AT 25 [...] FOUR PROTEINS (MLH1, PMS2, MSH2 AND MSH6). 4 1:22 PM EDT [facility] at 1321 EDT Clinical Information K63.5 - Polyp of colon [ICD-10-CM] 1:22 PM EDT [facility] Special and Immunohistochemical Stains [...] developed by and are performed at the [facility], [address] [place] [address]. All tests reported here, except those addressing [...] negativity on decalcified specimens. 1:22 PM EDT [facility] Gross Description A. [id number] Received along with a [facility] are 47 slide(s) labeled outside case: [id number] collected on 12/12/23. Also received 2 blocks as noted per Dr. Becker on 01/15/2024. 1:22 PM EDT [facility] Intradepartmental Consultation with Agreement Dr. Palmer (vascular invasion, staging and mesenteric margin). 1:22 PM EDT [facility] Note: A resident was involved in the service. I attest I examined the relevant preparations for the specimens and confirmed the diagnosis or interpretation. 1:22 PM EDT [facility] Tissue Sigmoid colon structure / Unknown 01/08/2024 10:42 AM EDT 01/08/2024 10:42 AM EDT Broderick Taylor MD LAB PATHOLOGY ORDERABLES Fin al Result [facility] [address] [place] [address] documented in this encounter Visit Diagnoses Diagnosis [...] documented as of this encounter Care Teams In Shop Service Technician Relationship Specialty Start Date End Date Sergey Oh MD PCP - General 11/13/21 Jean Mak MD 800 [facility] [address] [place] [phone] Surgeon Otolaryngology 11/21/21 documented as of this encounter
--- OUTSIDE RECORDS SUMMARY | 2024-12-27 07:44 | XMS_ITS | Encounter Summary ---
Author Organization Healthcare Address [address] [place] [address] Care Team Providers Care Construction Secretary Name Role Phone Pcp, No Primary Care Provider Sergey Oswald MD Primary Care Provider [phone] Jean Mak MD Unavailable Encounter Details Date Type Department Care Team (Late Contact Info) Description 11/19/2019 Orders Only External Location 800 [place] [address] Provider, External Social History Tobacco Use Types [...] Pav [facility] Res[facility] 800 [facility], 2nd [place] [address] 12/29/2024 1:30 PM EDT Office Visit Pav [facility] Head[facility] Neck [facility] Respiratory 800 [facility], 2nd [place] [address] Danny Coon MD [address] [address] 03/10/2025 10:50 AM EST Clinical Support [facility] 800 [place] [phone] 03/10/2025 11:00 AM EST Office Visit [facility] [address] [place] [phone] Edison Skaggs MD 800 [place] [address] documented as of this encounter Procedures Procedure [...] on filedocumented in this encounter Care Teams Construction Secretary Relationship Specialty Start Date End Date Pcp, No 800 [place] [address] PCP - General Family Medicine 03/31/21 11/12/21 Sergey Oh MD 800 [place] [address] PCP - General 11/13/21 Jean Mak MD 800 [facility] 2nd [place] [address] Surgeon Otolaryngology 11/21/21 documented as of this encounter
--- OUTSIDE RECORDS SUMMARY | 2024-12-27 07:44 | XMS_ITS | Encounter Summary ---
Author Organization Healthcare Address [address] [place] [address] Care Team Providers Care Clinical Practice Consultant Name Role Phone Pcp, No Primary Care Provider Sergey Oswald MD Primary Care Provider [phone] Jean Mak MD Unavailable [phone] Encounter Details Date Type Department Care Team (Late Contact Info) Description 01/22/2020 Orders Only External Location 800 [place] [address] Provider, External Social History Tobacco Use Types [...] CC Head, Neck & Respiratory 800 [facility], 2nd [place] [address] 12/29/2024 1:30 PM EDT Office Visit Pav [facility] Head[facility] Neck [facility] Respiratory 800 [facility], 2nd [place] [address] Danny Coon MD [address] [address] 03/10/2025 10:50 AM EST Clinical Support [facility] 800 [place] [address] 03/10/2025 11:00 AM EST Office Visit [facility] 800 [place] [address] Edison Skaggs MD 800 [place] [address] documented as of this encounter Procedures Procedure [...] on filedocumented in this encounter Care Teams Clinical Practice Consultant Relationship Specialty Start Date End Date Pcp, No 800 [place] [address] PCP - General Family Medicine 03/31/21 11/12/21 Sergey Oh MD [address] [place] [address] PCP - General 11/13/21 Jean Mak MD 800 [facility] [address] [place] [phone] Surgeon Otolaryngology 11/21/21 documented as of this encounter
--- OUTSIDE RECORDS SUMMARY | 2024-12-27 07:44 | XMS_ITS | Encounter Summary ---
Author Organization Healthcare Address [address] [place] [address] Care Team Providers Care Silvering Applicator Name Role Phone Pcp, No Primary Care Provider Sergey Oswald MD Primary Care Provider [phone] Jean Mak MD Unavailable [phone] Encounter Details Date Type Department Care Team (Late Contact Info) Description 11/19/2019 Orders Only External Location 800 [place] [address] Provider, External Social History Tobacco Use Types [...] Head, Neck & Respiratory 800 [facility], 2nd [place] [address] 12/29/2024 1:30 PM EDT Office Visit Pav CC Head, Neck & Respiratory 800 [facility], 2nd [place] [address] Danny Coon MD [address] [address] 03/10/2025 10:50 AM EST Clinical Support [facility] 800 [place] [phone] 03/10/2025 11:00 AM EST Office Visit [facility] 800 [place] [address] Edison Skaggs MD 800 [place] [address] documented as of this encounter Procedures Procedure Name Priority Date/Time Associated Diagnosis Comments NM OUTSIDE IMAGES 11/19/2019 2:46 PM EDT documented in this encounter Results * NM OUTSIDE IMAGES (11/19/2019 2:46 PM EDT) Anatomical Region Laterality Modality Nuclear Medicine 11/19/2019 2:46 PM EDT us External Provider IMG NM PROCEDURES Final Result documented in this encounter Visit Diagnoses Not on filedocumented in this encounter Care Teams Silvering Applicator Relationship Specialty Start Date End Date Pcp, No 800 [place] [address] PCP - General Family Medicine 03/31/21 11/12/21 Sergey Oh MD 800 [place] [address] PCP - General 11/13/21 Jean Mak MD 800 [facility] 2nd [place] [address] Surgeon Otolaryngology 11/21/21 documented as of this encounter
--- OUTSIDE RECORDS SUMMARY | 2024-12-27 07:44 | XMS_ITS | Encounter Summary ---
Author Organization Healthcare Address [address] [place] [address] Care Team Providers Care Manager Product Support Name Role Phone Pcp, No Primary Care Provider Sergey Oswald MD Primary Care Provider [phone] Jean Mak MD Unavailable [phone] Encounter Details Date Type Department Care Team (Late st Contact Info) Description 10/31/2021 Lab Requisition [facility] H Lab 800 [place] [address] Jean Mak MD 800 [facility] [address] [place] [phone] Nontoxic single thyroid nodule Social History Tobacco [...] Upcoming Encounters Date Type Department Care Team ([facility] st Contact Info) Description 12/29/2024 1:00 PM EDT Clinical Support [facility] Neck [facility] Respiratory [address] [place] [phone] 12/29/2024 1:30 PM EDT Office Visit [facility] Respiratory [address] [place] [phone] [place] [address] [place] [phone] 03/10/2025 10:50 AM EST Clinical Support [facility] [address] [place] [phone] 03/10/2025 11:00 AM EST Office Visit [facility] [address] [place] [phone] Edison Skaggs MD 800 [place] [address] documented as of this encounter Visit Diagnoses Diagnosis Nontoxic single thyroid nodule Nontoxic uninodular goiter documented in this encounter Care Teams Manager Product Support Relationship Specialty Start Date End Date Pcp, No 800 [place] [address] PCP - General Family Medicine 03/31/21 11/12/21 Sergey Oh MD 800 [place] [address] PCP - General 11/13/21 Jean Mak MD 800 [facility] [address] [address] Surgeon Otolaryngology 11/21/21 documented as of this encounter
--- OUTSIDE RECORDS SUMMARY | 2024-12-27 07:44 | XMS_ITS | Encounter Summary ---
Author Organization Healthcare Address [address] [place] [address] Care Team Providers Care Marine Driller Name Role Phone Pcp, No Primary Care Provider Sergey Oswald MD Primary Care Provider [phone] Jean Mak MD Unavailable [phone] Encounter Details Date Type Department Care Team (Late Contact Info) Description 06/30/2020 Orders Only External Location 800 [place] [address] Provider, External Social History Tobacco Use Types [...] Pav CC Head, Neck & Respiratory 800 [facility], 2nd [place] [address] 12/29/2024 1:30 PM EDT Office Visit Pav [facility] Head[facility] Neck & Respiratory 800 [facility], 2nd [place] [address] Danny Coon MD [address] [address] 03/10/2025 10:50 AM EST Clinical Support [facility] 800 [place] [phone] 03/10/2025 11:00 AM EST Office Visit [facility] 800 [place] [phone] Edison Skaggs MD 800 [place] [address] documented as of this encounter Procedures Procedure [...] on filedocumented in this encounter Care Teams Marine Driller Relationship Specialty Start Date End Date Pcp, No 800 [place] [address] PCP - General Family Medicine 03/31/21 11/12/21 Sergey Oh MD [address] [place] [address] PCP - General 11/13/21 Jean Mak MD 800 [facility] [address] [place] [phone] Surgeon Otolaryngology 11/21/21 documented as of this encounter
--- OUTSIDE RECORDS SUMMARY | 2024-12-27 07:44 | XMS_ITS | Encounter Summary ---
Author Organization Healthcare Address [address] [place] [address] Care Team Providers Care Deck Molder Name Role Phone Pcp, No Primary Care Provider Sergey Oswald MD Primary Care Provider [phone] Jean Mak MD Unavailable [phone] Encounter Details Date Type Department Care Team (Late Contact Info) Description 05/22/2021 Orders Only External Location 800 [place] [address] Provider, External Social History Tobacco Use Types [...] Pav [facility] Head[facility] Neck & Respiratory 800 [facility], 2nd [place] [address] 12/29/2024 1:30 PM EDT Office Visit Pav [facility] Head[facility] Neck & Respiratory 800 [facility], 2nd [place] [address] Danny Coon MD [address] [address] 03/10/2025 10:50 AM EST Clinical Support [facility] 800 [place] [phone] 03/10/2025 11:00 AM EST Office Visit [facility] 800 [place] [phone] Edison Skaggs MD 800 [place] [address] documented as of this encounter Procedures Procedure [...] on filedocumented in this encounter Care Teams Deck Molder Relationship Specialty Start Date End Date Pcp, No 800 [place] [address] PCP - General Family Medicine 03/31/21 11/12/21 Sergey Oh MD [address] [place] [address] PCP - General 11/13/21 Jean Mak MD 800 [facility] [address] [place] [phone] Surgeon Otolaryngology 11/21/21 documented as of this encounter
--- OUTSIDE RECORDS SUMMARY | 2024-12-27 07:44 | XMS_ITS | Encounter Summary ---
Author Organization Healthcare Address [address] [place] [address] Care Team Providers Care Independent Freight Agent Name Role Phone Sergey Oh MD Primary Care Provider [phone] Jean Mak MD Unavailable [phone] Encounter Details Date Type Department Care Team (Late st Contact Info) Description 12/06/2023 Orders Only External Location 800 [place] [address] Provider, External Social History Tobacco Use Types [...] Upcoming Encounters Date Type Department Care Team ([facility] st Contact Info) Description 12/29/2024 1:00 PM EDT Clinical Support Pav [facility] Head, Neck & Respiratory 800 [facility], [address] [place] [address] 12/29/2024 1:30 PM EDT Office Visit Pav CC Head, Neck & Respiratory [address] [phone] [place] [address] [place] [phone] 03/10/2025 10:50 AM EST Clinical Support [facility] [address] [place] [phone] 03/10/2025 11:00 AM EST Office Visit [facility] [address] [place] [phone] Edison Skaggs MD 800 [place], [place] [phone] documented as of this encounter Procedures Procedure Name Priority Date/Time Associated Diagnosis Comments CT THORACIC OUTSIDE IMAGES 12/06/2023 5:26 PM EDT documented in this encounter Results * CT THORACIC OUTSIDE IMAGES (12/06/2023 5:26 PM EDT) Anatomical Region Laterality Modality Computed Tomogra phy 12/06/2023 5:26 PM EDT External Provider IMG CT PROCEDURES [...] documented as of this encounter Care Teams Independent Freight Agent Relationship Specialty Start Date End Date Sergey Oh MD PCP - General 11/13/21 Jean Mak MD [address] [place] [address] Surgeon Otolaryngology 11/21/21 documented as of this encounter
--- OUTSIDE RECORDS SUMMARY | 2024-12-27 07:44 | XMS_ITS | Encounter Summary ---
Author Organization Healthcare Address [address] [place] [address] Care Team Providers Care Story Editor Name Role Phone Sergey Oh MD Primary Care Provider [phone] Jean Mak MD Unavailable [phone] Encounter Details Date Type Department Care Team (Late st Contact Info) Description 12/13/2023 Orders Only External Location 800 [place] [address] Provider, External Social History Tobacco Use Types [...] Upcoming Encounters Date Type Department Care Team ([facility] st Contact Info) Description 12/29/2024 1:00 PM EDT Clinical Support Pav [facility] Head, Neck & Respiratory 800 [facility], 2nd [place] [address] 12/29/2024 1:30 PM EDT Office Visit Pav CC Head, Neck & Respiratory [address] [phone] [place] [address] [place] [phone] 03/10/2025 10:50 AM EST Clinical Support [facility] [address] [place] [phone] 03/10/2025 11:00 AM EST Office Visit [facility] [address] [place] [phone] Edison Skaggs MD 800 [place], [place] [phone] documented as of this encounter Procedures Procedure Name Priority Date/Time Associated Diagnosis Comments XR OUTSIDE IMAGES 12/13/2023 9:56 AM EDT documented in this encounter Results * XR OUTSIDE IMAGES (12/13/2023 9:56 AM EDT) Anatomical Region Laterality Modality Radiographic Jeniffer ging 12/13/2023 9:56 AM EDT External Provider IMG XR PROCEDURES Final [...] documented as of this encounter Care Teams Story Editor Relationship Specialty Start Date End Date Sergey Oh MD PCP - General 11/13/21 Jean Mak MD 800 [facility] [address] [address] Surgeon Otolaryngology 11/21/21 documented as of this encounter
--- OUTSIDE RECORDS SUMMARY | 2024-12-27 07:44 | XMS_ITS | Encounter Summary ---
Author Organization Healthcare Address [address] [place] [address] Care Team Providers Care Floorperson Name Role Phone Sergey Oh MD Primary Care Provider [phone] Jean Mak MD Unavailable [phone] Encounter Details Date Type Department Care Team (Late st Contact Info) Description 12/06/2023 Orders Only External Location 800 [place] [address] Provider, External Social History Tobacco Use Types [...] Upcoming Encounters Date Type Department Care Team ([facility] st Contact Info) Description 12/29/2024 1:00 PM EDT Clinical Support Pav [facility] Head[facility] Neck & Respiratory 800 [facility], [address]nd [place] [address] 12/29/2024 1:30 PM EDT Office Visit Pav CC Head[facility] Neck & Respiratory [address] [phone] [place] [address] [place] [phone] 03/10/2025 10:50 AM EST Clinical Support [facility] [address] [place] [phone] 03/10/2025 11:00 AM EST Office Visit [facility] [address] [place] [phone] Edison Skaggs MD 800 [place], [place] [phone] documented as of this encounter Procedures Procedure [...] documented as of this encounter Care Teams Floorperson Relationship Specialty Start Date End Date Sergey Oh MD PCP - General 11/13/21 Jean Mak MD 800 [facility] [address] [address] Surgeon Otolaryngology 11/21/21 documented as of this encounter
--- OUTSIDE RECORDS SUMMARY | 2024-12-27 07:44 | XMS_ITS | Encounter Summary ---
Author Organization Healthcare Address [address] [place] [address] Care Team Providers Care Marine Service Station Attendant Name Role Phone Pcp, No Primary Care Provider Sergey Oswald MD Primary Care Provider [phone] Jean Mak MD Unavailable [phone] Encounter Details Date Type Department Care Team (Late Contact Info) Description 07/05/2020 Orders Only External Location 800 [place] [phone] Provider, External Social History Tobacco Use Types [...] Head, Neck & Respiratory 800 [facility], 2nd [place] [address] 12/29/2024 1:30 PM EDT Office Visit Pav CC Head, Neck & Respiratory 800 [facility], 2nd [place] [address] Danny Coon MD [address] [address] 03/10/2025 10:50 AM EST Clinical Support [facility] [address] [place] [address] 03/10/2025 11:00 AM EST Office Visit [facility] [address] [place] [address] Edison Skaggs MD 800 [place], [place] [phone] documented as of this encounter Procedures Procedure [...] filedocumented in this encounter Care Teams Marine Service Station Attendant Relationship Specialty Start Date End Date Pcp, No 800 [place] [address] PCP - General Family Medicine 03/31/21 11/12/21 Sergey Oh MD [address] [place] [address] PCP - General 11/13/21 Jean Mak MD 800 [facility] [address] [place] [phone] Surgeon Otolaryngology 11/21/21 documented as of this encounter
--- OUTSIDE RECORDS SUMMARY | 2024-12-27 07:44 | XMS_ITS | Encounter Summary ---
Author Organization Healthcare Address [address] [place] [address] Care Team Providers Care Telecommunications Consultant Name Role Phone Pcp, No Primary Care Provider Sergey Oswald MD Primary Care Provider [phone] Jean Mak MD Unavailable [phone] Encounter Details Date Type Department Care Team (Late Contact Info) Description 10/29/2021 Lab Requisition [facility] H Lab [address] [place] [phone] Jean Mak MD 800 [facility] [address] [place] [address] Localized swelling, mass and lump, neck [...] Pav CC Head, Neck & Respiratory 800 [facility], 2nd [place] [address] 12/29/2024 1:30 PM EDT Office Visit Pav CC Head, Neck & Respiratory 800 [facility], 2nd [place] [address] Danny Coon MD 2195 [facility] 125 [place] [address] 03/10/2025 10:50 AM EST Clinical Support [facility] [address] [place] [address] 03/10/2025 11:00 AM EST Office Visit [facility] [address] [place] [phone] Edison Skaggs MD 800 [place] [address] documented as of this encounter Procedures Procedure Name Priority Date/Time Associated Diagnosis Comments CYTOLOGY CONSULT Routine 10/29/2021 10:3 1 AM EDT Localized swelling, mass and lump, neck documented in this encounter Results * Cytology Consult (10/29/2021 10:31 AM EDT) Case Report Cytology Case: [id number] Authorizing Provider: Jean Mak MD Collected: 10/29/2021 1031 Ordering Location: [facility] Lab Received: 10/29/2021 1031 Pathologist: Sourav Olvera MD Specimen: Neck, FNA, [id number] 10/30/2021 12:43 PM EDT [facility] Final Diagnosis A. 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 [id number] For clinical data and diagnosis (SUSPICIOUS) for this specimen ([id number]/FN A) see final report issued by [facility] Pathology Department. 10/30/2021 12:43 PM EDT [facility] Fine Needle Aspirate Neck structure / Unknown 10/29/2021 10:31 AM EDT 10/29/2021 10:31 AM EDT Jean Mak MD LAB PATHOLOGY ORDERABLES Fin al Result [facility] [address] [place] [address] documented in this encounter Visit Diagnoses Diagnosis Localized swelling, mass and lump, neck Swelling, mass, or lump in head and neck documented in this encounter Care Teams Telecommunications Consultant Relationship Specialty Start Date End Date Pcp, No 800 [place] [address] PCP - General Family Medicine 03/31/21 11/12/21 Sergey Oh MD [address] [place] [address] PCP - General 11/13/21 Jean Mak MD [address] [place] [address] [address] [place] [phone] Surgeon Otolaryngology 11/21/21 documented as of this encounter
--- OUTSIDE RECORDS SUMMARY | 2024-12-27 07:44 | XMS_ITS | Encounter Summary ---
Author Organization Healthcare Address [address] [place] [address] Care Team Providers Care Sorting Cows Worker Name Role Phone Pcp, No Primary Care Provider Sergey Oswald MD Primary Care Provider [phone] Jean Mak MD Unavailable [phone] Encounter Details Date Type Department Care Team (Late Contact Info) Description 11/24/2019 Orders Only External Location 800 [place] [phone] Provider, External Social History Tobacco Use Types [...] 800 [facility], 2nd [place] [address] 12/29/2024 1:30 PM EDT Office Visit [facility] CC Head, Neck & Respiratory 800 [facility], 2nd [place] [address] Danny Coon MD [address] [address] 03/10/2025 10:50 AM EST Clinical Support [facility] 800 [place] [phone] 03/10/2025 11:00 AM EST Office Visit [facility] 800 [place] [phone] Edison Skaggs MD 800 [place] [address] documented as of this encounter Procedures Procedure [...] on filedocumented in this encounter Care Teams Sorting Cows Worker Relationship Specialty Start Date End Date Pcp, No 800 [place] [address] PCP - General Family Medicine 03/31/21 11/12/21 Sergey Oh MD [address] [place] [address] PCP - General 11/13/21 Jean Mak MD 800 [facility] 2nd [place] [address] Surgeon Otolaryngology 11/21/21 documented as of this encounter
--- OUTSIDE RECORDS SUMMARY | 2024-12-27 07:44 | XMS_ITS | Encounter Summary ---
Author Organization Healthcare Address [address] [place] [address] Care Team Providers Care Parks Recreation Director Name Role Phone Pcp, No Primary Care Provider Sergey Oswald MD Primary Care Provider [phone] Jean Mak MD Unavailable [phone] Encounter Details Date Type Department Care Team (Late Contact Info) Description 08/30/2019 Orders Only External Location 800 [place] [address] Provider, External Social History Tobacco Use Types [...] Pav CC Head, Neck & Respiratory 800 [facility], 2nd [place] [address] 12/29/2024 1:30 PM EDT Office Visit [facility] CC Head, Neck & Respiratory 800 [facility], 2nd [place] [address] Danny Coon MD [address] [address] 03/10/2025 10:50 AM EST Clinical Support [facility] 800 [place] [address] 03/10/2025 11:00 AM EST Office Visit [facility] 800 [place] [address] Edison Skaggs MD 800 [place] [address] documented as of this encounter Procedures Procedure [...] on filedocumented in this encounter Care Teams Parks Recreation Director Relationship Specialty Start Date End Date Pcp, No 800 [place] [address] PCP - General Family Medicine 03/31/21 11/12/21 Sergey Oh MD [address] [place] [address] PCP - General 11/13/21 Jean Mak MD 800 [facility] [address] [place] [phone] Surgeon Otolaryngology 11/21/21 documented as of this encounter
--- OUTSIDE RECORDS SUMMARY | 2024-12-27 07:44 | XMS_ITS | Encounter Summary ---
Author Organization Healthcare Address [address] [place] [address] Care Team Providers Care Cloth Winder Name Role Phone Pcp, No Primary Care Provider Sergey Oswald MD Primary Care Provider [phone] Jean Mak MD Unavailable [phone] Encounter Details Date Type Department Care Team (Late Contact Info) Description 09/04/2021 Orders Only External Location 800 [place] [phone] Cristian Griffith MD [address] [place] [address] Social History Tobacco Use Types Packs/Day Years [...] & Respiratory 800 [facility], 2nd [place] [address] 12/29/2024 1:30 PM EDT Office Visit [facility] CC Head, Neck & Respiratory 800 [facility], [address] [place] [address] Danny Coon MD 2555 [facility] 125 [place] [address] 03/10/2025 10:50 AM EST Clinical Support [facility] 800 [place] [address] 03/10/2025 11:00 AM EST Office Visit [facility] Multidisciplinary Oncology [facility] 800 [place] [address] Edison Skaggs MD 800 [place] [address] documented as of this encounter Procedures Procedure [...] on filedocumented in this encounter Care Teams Cloth Winder Relationship Specialty Start Date End Date Pcp, No 800 [place] [address] PCP - General Family Medicine 03/31/21 11/12/21 Sergey Oh MD [address] [place] [address] PCP - General 11/13/21 Jean Mak MD 800 [facility] 2nd [place] [address] Surgeon Otolaryngology 11/21/21 documented as of this encounter
--- OUTSIDE RECORDS SUMMARY | 2024-12-27 07:44 | XMS_ITS | Encounter Summary ---
Author Organization Healthcare Address [address] [place] [address] Care Team Providers Care Director Banking Name Role Phone Sergey Oh MD Primary Care Provider [phone] Jean Mak MD Unavailable [phone] Encounter Details Date Type Department Care Team (Late st Contact Info) Description 10/06/2024 Results Follow-Up [facility] CC Head, Neck & Respiratory [address], 2nd [place] [phone] Danny Coon MD 2195 [facility] 125 [place] [address] Social History Tobacco Use Types [...] Upcoming Encounters Date Type Department Care Team ([facility] st Contact Info) Description 12/29/2024 1:00 PM EDT Clinical Support [facility] Head, Neck & Respiratory [address] [place] [phone] 12/29/2024 1:30 PM EDT Office Visit [facility] Head, Neck & Respiratory [address] [place] [phone] [place] [address] [place] [phone] 03/10/2025 10:50 AM EST Clinical Support [facility] [address] [place] [address] 03/10/2025 11:00 AM EST Office Visit [facility] [address] [place] [address] Edison Skaggs MD [address] [place] [address] documented as of this encounter Visit Diagnoses [...] as of this encounter Care Teams Director Banking Relationship Specialty Start Date End Date Sergey Oh MD PCP - General 11/13/21 Jean Mak MD [address] [place] [address] [phone] Surgeon Otolaryngology 11/21/21 documented as of this encounter
--- OUTSIDE RECORDS SUMMARY | 2024-12-27 07:44 | XMS_ITS | Encounter Summary ---
Author Organization Healthcare Address [address] [place] [address] Care Team Providers Care Chemical Equipment Repairer Name Role Phone Pcp, No Primary Care Provider Sergey Oswald MD Primary Care Provider [phone] Jean Mak MD Unavailable [phone] Encounter Details Date Type Department Care Team (Late Contact Info) Description 09/20/2021 Orders Only External Location 800 [place] [address] Cristian Griffith MD [address] [place] [address] Social History Tobacco Use Types Packs/Day Years [...] Pav CC Head, Neck & Respiratory 800 [facility], 2nd [place] [address] 12/29/2024 1:30 PM EDT Office Visit [facility] Head, Neck & Respiratory 800 [facility], [address] [place] [address] Danny Coon MD 2535 [facility] 125 [place] [address] 03/10/2025 10:50 AM EST Clinical Support [facility] 800 [place] [address] 03/10/2025 11:00 AM EST Office Visit [facility] Multidisciplinary Oncology Clinic 800 [place] [address] Edison Skaggs MD 800 [place] [address] documented as of this encounter Procedures Procedure [...] on filedocumented in this encounter Care Teams Chemical Equipment Repairer Relationship Specialty Start Date End Date Pcp, No 800 [place] [address] PCP - General Family Medicine 03/31/21 11/12/21 Sergey Oh MD 800 [place] [address] PCP - General 11/13/21 Jean Mak MD 800 [facility] 2nd [place] [address] Surgeon Otolaryngology 11/21/21 documented as of this encounter
--- OUTSIDE RECORDS SUMMARY | 2024-12-27 07:44 | XMS_ITS | Encounter Summary ---
Author Organization Healthcare Address [address] [place] [address] Care Team Providers Care Healthcare Interpreter Name Role Phone Sergey Oh MD Primary Care Provider [phone] Jean Mak MD Unavailable [phone] Encounter Details Date Type Department Care Team (Late st Contact Info) Description 10/21/2023 Orders Only External Location 800 [place] [address] Provider, External Social History Tobacco Use Types [...] Upcoming Encounters Date Type Department Care Team ([facility] st Contact Info) Description 12/29/2024 1:00 PM EDT Clinical Support [facility] Head, Neck & Respiratory 800 [facility], 2nd [place] [address] 12/29/2024 1:30 PM EDT Office Visit [facility] CC Head, Neck & Respiratory [address] [phone] Danny Coon MD [address] [address] 03/10/2025 10:50 AM EST Clinical Support [facility] [address] [place] [phone] 03/10/2025 11:00 AM EST Office Visit [facility] [address] [place] [phone] Edison Skaggs MD 800 [place], [place] [phone] documented as of this encounter Procedures Procedure [...] as of this encounter Care Teams Healthcare Interpreter Relationship Specialty Start Date End Date Sergey Oh MD PCP - General 8/16/22 Jean Mak MD 800 [facility] Cancer [address] [address] Surgeon Otolaryngology 11/21/21 documented as of this encounter
--- OUTSIDE RECORDS SUMMARY | 2024-12-27 07:44 | XMS_ITS | Encounter Summary ---
Author Organization Healthcare Address [address] [place] [address] Care Team Providers Care Development Mgr Name Role Phone Sergey Oh MD Primary Care Provider [phone] Jean Mak MD Unavailable [phone] Encounter Details Date Type Department Care Team (Late st Contact Info) Description 12/13/2023 Orders Only External Location 800 [place] [address] Provider, External Social History Tobacco Use Types [...] Upcoming Encounters Date Type Department Care Team ([facility] st Contact Info) Description 12/29/2024 1:00 PM EDT Clinical Support Pav CC Head, Neck & Respiratory 800 [facility], [address]nd [place] [address] 12/29/2024 1:30 PM EDT Office Visit [facility] CC Head, Neck & Respiratory [address] [phone] [place] [address] [place] [address] 03/10/2025 10:50 AM EST Clinical Support [facility] [address] [place] [phone] 03/10/2025 11:00 AM EST Office Visit [facility] [address] [place] [phone] Edison Skaggs MD 800 [place], [place] [phone] documented as of this encounter Procedures Procedure [...] documented as of this encounter Care Teams Development Mgr Relationship Specialty Start Date End Date Sergey Oh MD PCP - General 11/13/21 Jean Mak MD 800 [facility] Cancer [address] [address] Surgeon Otolaryngology 11/21/21 documented as of this encounter
--- OUTSIDE RECORDS SUMMARY | 2024-12-27 07:44 | XMS_ITS | Encounter Summary ---
Author Organization Healthcare Address [address] [place] [address] Care Team Providers Care Napper Tender Name Role Phone Pcp, No Primary Care Provider Sergey Oswald MD Primary Care Provider [phone] Jean Mak MD Unavailable [phone] Encounter Details Date Type Department Care Team (Late Contact Info) Description 07/15/2019 Orders Only External Location 800 [place] [address] Provider, External Social History Tobacco Use Types [...] Head, Neck & Respiratory 800 [facility], 2nd [place] [address] 12/29/2024 1:30 PM EDT Office Visit [facility] CC Head, Neck & Respiratory 800 [facility], 2nd [place] [address] Danny Coon MD [address] [address] 03/10/2025 10:50 AM EST Clinical Support [facility] 800 [place] [address] 03/10/2025 11:00 AM EST Office Visit [facility] [address] [place] [address] Edison Skaggs MD 800 [place] [address] documented as of this encounter Procedures Procedure [...] on filedocumented in this encounter Care Teams Napper Tender Relationship Specialty Start Date End Date Pcp, No 800 [place] [address] PCP - General Family Medicine 03/31/21 11/12/21 Sergey Oh MD [address] [place] [address] PCP - General 11/13/21 Jean Mak MD 800 [facility] [address] [place] [phone] Surgeon Otolaryngology 11/21/21 documented as of this encounter
--- OUTSIDE RECORDS SUMMARY | 2024-12-27 07:44 | XMS_ITS | Encounter Summary ---
Author Organization Healthcare Address [address] [place] [address] Care Team Providers Care Manager Talent Name Role Phone Pcp, No Primary Care Provider Sergey Oswald MD Primary Care Provider [phone] Jean Mak MD Unavailable [phone] Encounter Details Date Type Department Care Team (Late Contact Info) Description 08/11/2020 Orders Only External Location 800 [place] [phone] Provider, External Social History Tobacco Use Types [...] CC Head, Neck & Respiratory 800 [facility], 2nd [place] [address] 12/29/2024 1:30 PM EDT Office Visit [facility] CC Head, Neck & Respiratory 800 [facility], 2nd [place] [phone] Danny Coon MD [address] [address] 03/10/2025 10:50 AM EST Clinical Support [facility] 800 [place] [phone] 03/10/2025 11:00 AM EST Office Visit [facility] 800 [place] [address] Edison Skaggs MD 800 [place] [address] documented as of this encounter Procedures Procedure [...] on filedocumented in this encounter Care Teams Manager Talent Relationship Specialty Start Date End Date Pcp, No 800 [place] [address] PCP - General Family Medicine 03/31/21 11/12/21 Sergey Oh MD [address] [place] [address] PCP - General 11/13/21 Jean Mak MD [address] [place] [address] [address] [place] [phone] Surgeon Otolaryngology 11/21/21 documented as of this encounter
--- OUTSIDE RECORDS SUMMARY | 2024-12-27 07:44 | XMS_ITS | Encounter Summary ---
Author Organization Healthcare Address [address] [place] [address] Care Team Providers Care Hide Cooking Operator Name Role Phone Sergey Oh MD Primary Care Provider [phone] Jean Mak MD Unavailable [phone] Encounter Details Date Type Department Care Team (Late st Contact Info) Description 10/06/2024 Results Follow-Up Pav CC Head, Neck & Respiratory [address], 2nd [place] [phone] Danny Coon MD 2195 [facility] 125 [place] [address] Social History Tobacco Use Types [...] Upcoming Encounters Date Type Department Care Team ([facility] st Contact Info) Description 12/29/2024 1:00 PM EDT Clinical Support [facility] CC Head, Neck & Respiratory [address] [place] [phone] 12/29/2024 1:30 PM EDT Office Visit [facility] Head, Neck & Respiratory [address] [place] [phone] [place] [address] [place] [phone] 03/10/2025 10:50 AM EST Clinical Support [facility] [address] [place] [phone] 03/10/2025 11:00 AM EST Office Visit [facility] [address] [place] [phone] Edison Skaggs MD [address] [place] [address] documented as of this encounter Visit Diagnoses [...] documented as of this encounter Care Teams Hide Cooking Operator Relationship Specialty Start Date End Date Sergey Oh MD PCP - General 11/13/21 Jean Mak MD [address] [place] [address] [phone] Surgeon Otolaryngology 11/21/21 documented as of this encounter
--- OUTSIDE RECORDS SUMMARY | 2024-12-27 07:44 | XMS_ITS | Encounter Summary ---
Author Organization Healthcare Address [address] [place] [address] Care Team Providers Care Notched Blade Loader Name Role Phone Sergey Oh MD Primary Care Provider [phone] Jean Mak MD Unavailable Encounter Details Date Type Department Care Team (Late st Contact Info) Description 12/11/2023 Orders Only External Location 800 [place] [address] Provider, External Social History Tobacco Use Types [...] Upcoming Encounters Date Type Department Care Team ([facility] st Contact Info) Description 12/29/2024 1:00 PM EDT Clinical Support [facility] CC Head, Neck & Respiratory 800 [facility], 2nd [place] [address] 12/29/2024 1:30 PM EDT Office Visit [facility] CC Head, Neck & Respiratory [address] [phone] [place] [address] [place] [phone] 03/10/2025 10:50 AM EST Clinical Support [facility] [address] [place] [phone] 03/10/2025 11:00 AM EST Office Visit [facility] [address] [place] [phone] Edison Skaggs MD 800 [place], [place] [phone] documented as of this encounter Procedures Procedure [...] documented as of this encounter Care Teams Notched Blade Loader Relationship Specialty Start Date End Date Sergey Oh MD PCP - General 11/13/21 Jean Mak MD 800 [facility] Cancer [address] [address] Surgeon Otolaryngology 11/21/21 documented as of this encounter
--- OUTSIDE RECORDS SUMMARY | 2024-12-27 07:44 | XMS_ITS | Clinical Summary ---
Author Organization [facility]3] Address [address] [place] [address] Care Team Providers Care Plan Manager Name Role Phone Melia Knox Primary Care Provider [phone] Medications OTHER - BILL ONLY Ac tive [...] 10 Years) 1996 Cervical Cancer Screening 1999 Depression Screening 03/31/2024 COVID-19 Vaccine ( season) 2024 Influenza Vaccination (#1) 2024 Care Teams Plan Manager Relationship Specialty Start Date End Date Melia Knox [facility] [place] [address] PCP - General Family Medicine 09/29/17
== END 2024-12-27 23:59 | disposition home or self-care (01) ==
LOC: RT 07:41
PROVIDERS: PCP Family Medicine; Visit Provider Internal Medicine Pulmonary Disease
DX: J44.9 Chronic obstructive pulmonary disease, unspecified (principal); R94.2 Abnormal results of pulmonary function studies
CPT/HCPCS: 94060; 94618; 94726; 94729

== ENCOUNTER 2025-01-19 09:08 | Outpatient (CLI) | payer OTHER, SELFPAY ==
--- OUTSIDE RECORDS SUMMARY | 2024-12-23 11:00 | XMS_ITS | Encounter Summary ---
Author Organization Healthcare Address [address] [place] [address] Care Team Providers Care Joiner Name Role Phone Sergey Oh MD Primary Care Provider [phone] Jean Mak MD Unavailable [phone] Encounter Details Date Type Department Care Team (Latest Contact Info) Description 12/23/2024 11:00 AM EDT Clinical Support [facility] Multidisciplinary Oncology Clinic [address] [place] [phone] History of colon cancer, stage II Social [...] PM EST Appointment [facility] [address] [place] [phone] 01/31/2025 2:30 PM EST Appointment [facility] [address] [place] [phone] 03/10/2025 8:00 AM EST Appointment [facility] [address] [place] [phone] 03/10/2025 10:50 AM EST Clinical Support [facility] [address] [place] [phone] 03/10/2025 11:00 AM EST Office Visit [facility] [address] [place] [phone] Edison Skaggs MD [address] [place] [address] 06/29/2025 12:30 PM EDT Clinical Support [facility] [address] [place] [phone] 06/29/2025 1:00 PM EDT Office Visit [facility] [address] [place] [phone] Danny Coon MD [address] [place] [phone] documented as of this encounter Procedures Procedure Name Priority Date/Time Associated Diagnosis Comments CEA, SERUM Routine 12/23/2024 10:57 AM EDT History of colon cancer, stage II documented in this encounter Results * (ABNORMAL) CEA (12/23/2024 10:57 AM EDT) CEA, Serum 16.6(H) <4.0 ng/mL 12/23/2024 12:25 PM EDT [facility] Blood Venous blood specimen / Unknown (Port) Long-term Catheter / Unknown 12/23/2024 10:57 AM EDT 12/23/2024 11:44 AM EDT Narrative [facility] - 12/23/2024 12:25 PM EDT Normal range for smokers: < 5.5 ng/ml Normal range for non-smokers: <=4.0 ng/ml Performed by [employer] electrochemiluminescent immunoassay. Results obtained with different test methods or kits cannot be used interchangeably. us Broderick Taylor MD LAB BLOOD ORDERABLES Final R esult [facility] [address] [place] [address] documented in this encounter Visit Diagnoses Diagnosis [...] documented as of this encounter Care Teams Joiner Relationship Specialty Start Date End Date Sergey Oh MD PCP - General 11/13/21 Jean Mak MD [address] [facility] [address] [place] [phone] Surgeon Otolaryngology 11/21/21 documented as of this encounter
--- OUTSIDE RECORDS SUMMARY | 2024-12-23 11:00 | XMS_ITS | Encounter Summary ---
Author Organization [facility] Address [address] [id number] Care Team Providers Care Director Of Testing Name Role Phone Sergey Oh MD Primary Care Provider [phone] Jean Mak MD Unavailable Reason for Referral * Imaging (Routine) - Pending Review Specialty Diagnoses / Procedures Referred By Contac t Referred To Contact Radiology Diagnoses History of colon cancer, stage II Procedures CT Chest w IV Contrast Franchesca Delacruz MD [address] [address] Phone: tel: fax: Referral ID Status Reason Start Date Expiration Date V isits Requested Visits Authorized [id number] Pending Review 12/23/2024 06/24/2026 1 1 * Imaging (Routine) - Pending Review Specialty Diagnoses / Procedures Referred By Contac t Referred To Contact Radiology Diagnoses History of colon cancer, stage II [address] CT Abdomen Pelvis w IV Contrast Franchesca Delacruz MD [address] [address] Phone: tel: fax: Referral ID Status Reason Start Date Expiration Date V isits Requested Visits Authorized [id number] Pending Review 12/23/2024 06/24/2026 1 1 * Imaging (Routine) - Closed Specialty Diagnoses / Procedures Referred By Contac t Referred To Contact Radiology Diagnoses History of colon cancer, stage II [address] CT Chest w IV Contrast Broderick Taylor MD [address] [place] [phone] Phone: tel: fax: Referral ID Status Reason Start Date Expiration Date Visits Re quested Visits Authorized [id number] Closed 12/22/2024 06/23/2026 1 1 * Imaging (Routine) - Closed Specialty Diagnoses / Procedures Referred By Dhruv kebede Referred To Contact Radiology Diagnoses History of colon cancer, stage II Procedures CT Abdomen Pelvis w IV Contrast Broderick Taylor MD [address] [place] [phone] Phone: tel: fax: Referral ID Status Reason Start Date Expiration Date Visits Re quested Visits Authorized [id number] Closed 12/22/2024 06/23/2026 1 1 Reason for Visit * Reason Comments Follow-up 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 [facility] Path: follicular cells in a background [...] and Medical Oncology fellow Pager number : [phone] [facility] HEMATOLOGY/BMT AND CELLULAR THERAPY PROGRAM [address] [place] [phone] Cosigned by Broderick Taylor MD at 12/27/2024 [...] PM EST Appointment [facility] [address] [place] [phone] 01/31/2025 2:30 PM EST Appointment [facility] [address] [place] [address] 03/10/2025 8:00 AM EST Appointment [facility] [address] [place] [address] 03/10/2025 10:50 AM EST Clinical Support [facility] [address] [place] [phone] 03/10/2025 11:00 AM EST Office Visit [facility] [address] [place] [phone] Edison Skaggs MD 800 [place], [place] [phone] 06/29/2025 12:30 PM EDT Clinical Support [facility] [address] [place] [address], [address] [place] [address] 06/29/2025 1:00 PM EDT Office Visit [facility] [address] [place] [phone] Danny Coon MD [address] [phone] Scheduled Orders Name Type Priority [...] Total DLP (Dose-Length Product): 576.01 mGy.cm (accession [id number]), 576.01 mGy.cm (accession [id number]) Please note: The reported value represents the [...] Total DLP (Dose-Length Product): 576.01 mGy.cm (accession [id number]),576.01 mGy.cm (accession [id number]) Please note: The reported valuerepresents the total [...] cm (previously subcentimeter, series 3 image 118 [id number]). A right common iliac lymph node measures [...] Total DLP (Dose-Length Product): 576.01 mGy.cm (accession [id number]), 576.01 mGy.cm (accession [id number]) Please note: The reported value represents the [...] Total DLP (Dose-Length Product): 576.01 mGy.cm (accession [id number]),576.01 mGy.cm (accession [id number]) Please note: The reported valuerepresents the total [...] cm (previously subcentimeter, series 3 image 118 [id number]). A right common iliac lymph node measures [...] AM EDT 12/23/2024 11:44 AM EDT Narrative [facility] - 12/23/2024 12:25 PM EDT Normal range for smokers: < 5.5 ng/ml Normal range for non-smokers: <=4.0 ng/ml Performed by Brendon electrochemiluminescent immunoassay. Results obtained with different test methods or kits cannot be used interchangeably. us Broderick Taylor MD LAB BLOOD ORDERABLES Final R esult [facility] [address] [place] [address] documented in this encounter Visit Diagnoses Diagnosis [...] documented as of this encounter Care Teams Director Of Testing Relationship Specialty Start Date End Date Sergey Oh MD PCP - General 11/13/21 Jean Mak MD 800 [facility] [address] [place] [phone] Surgeon Otolaryngology 11/21/21 documented as of this encounter
--- OUTSIDE RECORDS SUMMARY | 2024-12-29 13:30 | XMS_ITS | Encounter Summary ---
Author Organization [facility] Address [address] 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); Multiple lung nodules on CT; Post-surgical hypothyroidism; Vitamin D deficiency; Elevated alkaline phosphatase level Social History Tobacco Use Types Packs/Day Years Used Date Smoking Tobacco: Every Day Cigarettes 1 32.4 Started: 03/31/1994 Passive Smoke Exposure: Current Smokeless Tobacco: Never Tobacco Cessation:Ready to Q uit: Not Asked; Counseling Given: Not Answered Comments:Vaping Alcohol Use Standard Drinks/Week Comments Yes [...] Sign Reading Time Taken Comments Blood Pressure 102/68 12/29/2024 1:08 PM EDT Pulse 82 12/29/2024 1:08 PM EDT Temperature 36.6 C (97.8 F) 12/29/2024 1:08 PM EDT Respiratory Rate 16 12/29/2024 1:08 PM EDT Oxygen Saturation 95% 12/29/2024 1:08 PM EDT Inhaled Oxygen Concentration - - Weight 69.2 kg (152 lb 8.9 oz) 12/29/2024 1:08 P M EDT Height - - Body Mass Index 27.9 12/23/2024 11:38 AM EDT documented in this encounter Miscellaneous Notes * Progress Notes - Danny Coon MD - 12/29/2024 1:30 PM EDT Reason for visit: Follow-up on Hypothyroidism and Thyroid cancer. Thyroid Related Surgeries: Date: 09/09/2019, [facility], [place], [place]. Type: Total Thyroidectomy Node Resection: Left [...] Complications: Hypocalcemia Thyroid Related Surgeries: Date: 12/10/2021, [facility] Node Resection: Right Modified Pathology Description: Pathology reported that one metastatic right level 3 node was seen out of 5 total right neck nodes resected. Pathology Results: Papillary Carcinoma: Typical Type Resection Extent: R0: No residual tumor Complications: Right jugular vein incised and repaired. Radioiodine Therapy Date: 11/19/2019, [facility], [place], [place]. 131I Therapy Dose (MCi): 128.8 mCi Prep Method Thyrogen:Thyrogen [Thyrogen given days #1&2] and 131I Tx on day 3 Diet: Diet Unknwon Iodine Exposure: Possible Intent: Initial ablative, Thyroglobulin level: Not Done ng/ml, and - TG antibodies Subjective Anita Finnegan is a 44 y.o. female. The Patient's last visit at the [facility] was on 10/06/24. She was diagnosed w/ stage II A colon cancer in 2023. She is S/P colectomy on December 12, 2023 and FOLFOX from 02/05/24 to 04/15/24. I reviewed the F/U note in epic by Dr. Edison Skaggs (Oncology) dated 12/23/24. THE PLAN IS TO CONTINUE SURVEILLANCE. She reports swallowing problem sometimes. She denies voice change. There is lump feeling in the posterior L neck which she had since she was 7 yo. There is no perioral numbness / tingling. The patient denieshot flashes and heat intolerance. The patient denies tremulousness and palpitations. The patient is on Levothyroxine (generic) 125 mcg 6.5 tablets wkly. She has a cyst on the R ovary and a fibroid (she was considering having a hysterectomy but this hadto be put off d/t her colon ca DX). She says she had a follow-up scheduled with gynecology but it was cancelled. She quit smoking in 11/2024. Objective Vitals Blood pressure 102/68, pulse 82, temperature 36.6 ??C (97.8 ??F), temperature source Oral, resp. rate 16, weight 69.2 kg (152 lb 8.9 oz), last menstrual period 04/07/2022, SpO2 95%. Body mass index is 27.9 kg/m??. 06/30/24 wt 66.9 kg (147 lb 7.8 oz) 01/27/23 Wt 61.4 kg (135 lb 5.8 oz) PE Constitutional: Appearance: not ill-appearing. HENT: NL voice. Eyes: Extraocular Movements: intact. Neck: Thyroidectomy and neck dissection scars. Cardiovascular: Heart Rate: Normal. Pulmonary: Effort: Pulmonary effort is normal. Musculoskeletal: Right lower leg: No edema. Left lower leg: No edema. Lymphadenopathy: Cervical: No cervical adenopathy. Small knot L posterior neck (had it for yrs). Neurological: Mental Status: alert. No tremor. Tests [...] 0.10 (L) 06/30/2024 0.06 (L) 0.2 <1.0 09/23/24 0.08 10/06/[address] neck w/ IV contrast 09/24/24 [...] Thoracic great vessels are patent. Right chest [id number]-P-[id number] with tip in the lower SVC. Lungs [...] precarinal lymph node. Chest CT in 08/2024 reported mild increase in size and number in bilateral lung nodules compared to prior dated June 24, 2024 concerning for metastatic disease progression. Recommend attention on follow-up. Tg on LT4 0.1-0.2, last 1 in 09/2024, recheck in 6 months. Lung Nodules: As above. Less likely thyroid cancer related given her thyroglobulin level. She is scheduled for a F/U CT in 02/2025. Hypothyroidism: TSH suppressed in 08/2024, her levothyroxine dosage was decreased to 125 mcg 6.5 tabs weekly. Goal TSH low end of NL. TSH FT4 pending from today. D def w/ Osteopenia on DXA 07/03/23: Ensure taking adequate ca and D. She has a h/o D def w/ 25OHD 12.8 on 05/21/23 (she was prescribed Ergocalciferol 50k IU wkly x 3 months by Radha Montelongo APRN, Iresent a RX in 01/2024). 25 hydroxy vitamin-D 31.9 on 09/23/2024, at goal. Monitor. She also has a h/o borderline low serum calcium. Elevated ALP Check Isoenzymes. RTC: 6 months. Tests ordered: 25OHD Tg TSH and Free T4 6 months. Alkaline Phosphatase Enzymes today. Electronically signed by: Danny Coon MD [facility] [address] [place] [address]. [address] [place]. [address] PHONE [phone] FAX: [phone] documented in this encounter Plan of Treatment Upcoming Encounters Date Type Department Care Team (Late st Contact Info) Description 01/31/2025 12:15 PM EST Appointment [facility] Nuclear Medicine [address] [place] [address] 01/31/2025 2:30 PM EST Appointment [facility] Nuclear Medicine [address] [place] [address] 03/10/2025 8:00 AM EST Appointment [facility] Radiology [address] [place] [address] 03/10/2025 10:50 AM EST Clinical Support [facility] Multidisciplinary Oncology Clinic [address] [place] [address] 03/10/2025 11:00 AM EST Office Visit [facility] Multidisciplinary Oncology Clinic [address] [place] [address] Edison Skaggs MD [address] [place] [address] 06/29/2025 12:30 PM EDT Clinical Support [facility] Res[facility] [address] [facility], 2nd [place] [address] 06/29/2025 1:00 PM EDT Office Visit [facility] Head[facility] Neck [facility] Respiratory [address] [facility], [address]nd [place] [address] Danny Coon MD [address] [facility] [address] [place] [address] Scheduled Orders Name Type Priority Associated Diagnoses Orde r Schedule Free T4, Plasma Lab Routine Post-surgical hypothyroidism Expected: 06/29/2025, Expires: 07/06/2026 Thyroid Stimulating Hormone, Plasma Lab Routine Post-surgical hypothyroidism Expected: 06/29/2025, Expires: 07/06/2026 Thyroglobulin Antibody and Thyroglobulin (MARIA TERESA or LC-MSMS) Lab Routine 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 Expected: 06/29/2025, Expires: 07/06/2026 Vitamin D 25 Hydroxy Lab Routine Vitamin D deficiency Expected: 06/29/2025, Expires: 07/06/2026 documented as of this encounter Results * (ABNORMAL) Alkaline phosphatase, isoenzymes (12/29/2024 1:51 PM EDT) ALKALINE PHOSPHATASE 163(H) 40 - 120 U/L 01/02/2025 1:09 AM EDT [facility] ([facility]) ALKALINE PHOSPHATASE BONE CALC 62(H) 0 - 55 U/L 01/02/2025 1:09 AM EDT [facility] ([facility]) ALKALINE PHOSPHATASE LIVER CALC 101(H) 0 - 94 U/L 01/02/2025 1:09 AM EDT [facility] ([facility]) ALKALINE PHOSPHATASE OTHER CALC 0 U/L 01/02/2025 1:09 AM EDT [facility] ([facility]) Blood Blood sample taken from central line / Unknown (Port) Long-term Catheter / Unknown 12/29/2024 1:51 PM EDT 12/29/2024 5:19 PM EDT Narrative [facility] ([facility]) - 01/02/2025 1:09 AM EDT INTERPRETIVE INFORMATION: Alk-Phosphatase Liver Calc Bone Specific Alkaline Phosphatase (8709970) and 5'-nucleotidase (0564978) may be useful in identifying disorders of bone and liver, respectively. This test was developed and its performance characteristics determined by [facility]. It has not been cleared or approved by the U.S. Food and Drug Administration. This test was performed in a CLIA-certified laboratory and is intended for clinical purposes. 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- Primary Multiple lung nodules on CT Post-surgical hypothyroidism Postsurgical hypothyroidism Vitamin D deficiency Elevated alkaline phosphatase level documented in this encounter Additional Health Concerns Assessment Noted Time PHQ-9 Depression Total Score: 0 06/22/19 25 1:53 PM EDT A fall risk assessment has been complete d for the patient 12/29/2024 1:10 PM EDT A Body Mass Index follow-up plan has been documented for the patient 06/23/2024 9:55 AM EDT documented as of this encounter Care Teams Child Nutrition Manager Relationship Specialty Start Date End Date Sergey Oh MD PCP - General 11/13/21 Jean Mak MD 800 [facility] Cancer [address] [address] Surgeon Otolaryngology 11/21/21 documented as of this encounter
--- OUTSIDE RECORDS SUMMARY | 2025-01-11 14:33 | XMS_ITS | Encounter Summary ---
Author Organization [facility] Address [address] [place] [address] Care Team Providers Care Fax Machine Repairer Name Role Phone Sergey Oh MD Primary Care Provider [phone] Jean Mak MD Unavailable [phone] Reason for Referral * Imaging (Routine) - Closed Specialty Diagnoses / Procedures Referred By Contac t Referred To Contact Radiology Diagnoses History of colon cancer, stage II Procedures [address] Chest w IV Contrast Broderick Taylor MD [address] [address] Phone: tel: fax: Referral ID Status Reason Start Date Expiration Date Visits Re quested Visits Authorized [id number] Closed 12/22/2024 06/23/2026 1 1 * Imaging (Routine) - Closed Specialty Diagnoses / Procedures Referred By Contac t Referred To Contact Radiology Diagnoses History of colon cancer, stage II Procedures CT Abdomen Pelvis w IV Contrast Broderick Taylor MD [address] [address] Phone: tel: fax: Referral ID Status Reason Start Date Expiration Date Visits Re quested Visits Authorized [id number] Closed 12/22/2024 06/23/2026 1 1 Reason for Visit * Imaging (Routine) - Closed Specialty Diagnoses / Procedures Referred By Contsarah t Referred To Contact Radiology Diagnoses History of colon cancer, stage II [address] Chest w IV Contrast Broderick Taylor MD 800 [facility] [place] [facility] [address] [place] [address] Phone: tel: fax: Referral ID Status Reason Start Date Expiration Date Visits Re quested Visits Authorized [id number] Closed 12/22/2024 06/23/2026 1 1 Encounter Details Date Type Department Care Team (Latest Contact Info) Description 01/11/2025 2:33 PM EDT - 01/11/2025 11:59 PM EDT Hospital Encounter [facility] [address] [place] [address] History of colon cancer, stage [...] mouth once daily 12/03/2024 ergocalciferol 1.25 MG (79336 UT) capsule TAKE ONE (1) CAPSULE BY MOUTH ONE (1) TIME PER WEEK. 12 capsule 3 12/22/2024 HYDROcodone-acet aminophen ([place]) 7.5-325 MG tablet TAKE ONE (1) TABLET [...] from the original note were not included. 7798 Caring for Yourself after Contrast Imaging If [...] Info) Description 01/31/2025 12:15 PM EST Appointment [facility] Nuclear Medicine [address] [place] [phone] 01/31/2025 2:30 PM EST Appointment [facility] Nuclear Medicine [address] [place] [address] 03/10/2025 8:00 AM EST Appointment [facility] Radiology [address] [place] [address] 03/10/2025 10:50 AM EST Clinical Support [facility] [address] [place] [address] 03/10/2025 11:00 AM EST Office Visit [facility] [address] [place] [address] Edison Skaggs MD 800 [place] [address] 06/29/2025 12:30 PM EDT Clinical Support [facility] [address] [place] [address], [address] [place] [address] 06/29/2025 1:00 PM EDT Office Visit [facility] [address] [place] [phone] Danny Coon MD [address] [address] documented as of this encounter [...] Total DLP (Dose-Length Product): 576.01 mGy.cm (accession [id number]), 576.01 mGy.cm (accession [id number]) Please note: The reported value represents the [...] Total DLP (Dose-Length Product): 576.01 mGy.cm (accession [id number]),576.01 mGy.cm (accession [id number]) Please note: The reported valuerepresents the total [...] cm (previously subcentimeter, series 3 image 118 [id number]). A right common iliac lymph node measures [...] Total DLP (Dose-Length Product): 576.01 mGy.cm (accession [id number]), 576.01 mGy.cm (accession [id number]) Please note: The reported value represents the [...] Total DLP (Dose-Length Product): 576.01 mGy.cm (accession [id number]),576.01 mGy.cm (accession [id number]) Please note: The reported valuerepresents the total [...] cm (previously subcentimeter, series 3 image 118 [id number]). A right common iliac lymph node measures [...] documented as of this encounter Care Teams Fax Machine Repairer Relationship Specialty Start Date End Date Sergey Oh MD PCP - General 11/13/21 Jean Mak MD 800 [facility] Cancer [address] [phone] Surgeon Otolaryngology 11/21/21 documented as of this encounter
[2025-01-19 20:06] LABS: Alanine Aminotransferase 19 U/L (12-78); Albumin Level 4.1 g/dl (3.5-5.0); Albumin/Globulin Ratio 1.4 (1.1-1.8); Alkaline Phosphatase 171 U/L (38-126); Anion Gap 16.0 mEq/L (5-15); Aspartate Amino Transferase 25 U/L (14-36); Bilirubin,Total 0.6 mg/dl (0.2-1.3); Blood Urea Nitrogen 9 mg/dl (7-17); Calcium 9.7 mg/dl (8.4-10.2); Carbon Dioxide 32 mmol/L (22.0-30.0); Chloride 99 mmol/L (98-107); Creatinine,Serum 0.80 mg/dl (0.52-1.04); Estimated Glomerular Filt Rate 77 ml/min (>60); GFR (African American) 93 ML/MIN (>60); Globulin 3.0 g/dL (1.3-3.2); Glucose 87 mg/dl (74-100); Potassium 4.0 mmoL/L (3.5-5.1); Sodium 143 mmol/L (136-145); Total Protein,Serum 7.1 g/dl (6.3-8.2)
[2025-01-19 20:48] LABS: Hepatitis C Ab Qual. W/ RFX NEGATIVE (Negative)
--- OUTSIDE RECORDS SUMMARY | 2025-01-21 09:26 | XMS_ITS | Encounter Summary ---
Author Organization [facility] Address [address] [place] [address] Care Team Providers Care Microgrinder Operator Name Role Phone Sergey Oh MD Primary Care Provider [phone] Jean Mak MD Unavailable [phone] Encounter Details Date Type Department Care Team [...] things Not at all 12/23/2024 11:46 AM Cassie Jackson Feeling down, depressed, or hopeless Not at all 12/23/2024 11:46 AM Cassie Jackson Patient Health Questionnaire -2 Score 0 12/23/2024 11:46 AM Cassie Jackson * Question Answer Date of Assessment Author Feeling bad about yourself - or that you are a failure or have let yourself or your family down Not at all 12/23/2024 11:46 AM Cassie Fontaine Thoughts that you would be better off or hurting yourself in some way Not at all 12/23/2024 11:46 AM Cassie Jackson * How difficult have these problems made it for you to do your work, take care of things at home, or get along with other people? Answer Date of Assessment Author Not difficult at all 12/23/2024 11:46 AM Cassie Fontaine * How difficult have these problems made it for you to do your work, take care of things at home, or get along with other people? Answer Date of Assessment Author Not difficult at all 12/23/2024 11:46 AM Cassie Fontaine documented as of this encounter Plan of Treatment Upcoming Encounters Date Type Department Care Team (Late st Contact Info) Description 01/31/2025 12:15 PM EST Appointment [facility] H Nuclear Medicine [address] [place] [address] 01/31/2025 2:30 PM EST Appointment [facility] Nuclear Medicine [address] [place] [address] 03/10/2025 8:00 AM EST Appointment [facility] Radiology [address] [place] [address] 03/10/2025 10:50 AM EST Clinical Support [facility] Multidisciplinary Oncology Clinic [address] [place] [address] 03/10/2025 11:00 AM EST Office Visit [facility] [address] [place] [phone] Edsion Skaggs MD [address] [place] [address] 06/29/2025 12:30 PM EDT Clinical Support [facility] 800 [facility], 2nd [place] [phone] 06/29/2025 1:00 PM EDT Office Visit [facility] 800 [facility], [address] [place] [phone] Danny Coon MD 2195 [facility] 125 [place] [phone] documented as of this encounter Visit Diagnoses [...] documented as of this encounter Care Teams Microgrinder Operator Relationship Specialty Start Date End Date Sergey Oh MD PCP - General 11/13/21 Jean aMk MD [address] [place] [address] [facility] [address] [place] [address] Surgeon Otolaryngology 11/21/21 documented as of this encounter
--- OUTSIDE RECORDS SUMMARY | 2025-01-21 09:26 | XMS_ITS | Encounter Summary ---
Author Organization [facility] Address [address] [place] [address] Care Team Providers Care Board Of Directors Name Role Phone Sergey Oh MD Primary Care Provider [phone] Jean Mak MD Unavailable [phone] Reason for Visit * Reason Comments Med Refill Encounter Details Date Type Department Care Team (Late st Contact Info) Description 12/17/2024 Refill [facility] [address], [address] [place] [address] Danny Coon MD [facility] [address] [address] Social History Tobacco Use Types [...] Upcoming Encounters Date Type Department Care Team ([facility] st Contact Info) Description 01/31/2025 12:15 PM EST Appointment [facility] Nuclear Medicine [address] [place] [address] 01/31/2025 2:30 PM EST Appointment [facility] Nuclear Medicine [address] [place] [address] 03/10/2025 8:00 AM EST Appointment [facility] G Radiology [address] [place] [address] 03/10/2025 10:50 AM EST Clinical Support [facility] [address] [place] [phone] 03/10/2025 11:00 AM EST Office Visit [facility] [address] [place] [phone] Edison Skaggs MD 800 [place] [address] 06/29/2025 12:30 PM EDT Clinical Support [facility] [address] [place] [phone] 06/29/2025 1:00 PM EDT Office Visit [facility] [address] [place] [phone] Danny Coon MD [address] [address] documented as of this encounter Visit Diagnoses [...] documented as of this encounter Care Teams Board Of Directors Relationship Specialty Start Date End Date Sergey Oh MD PCP - General 11/13/21 Jean Mak MD 800 [facility] Cancer [address] [address] Surgeon Otolaryngology 11/21/21 documented as of this encounter
--- OUTSIDE RECORDS SUMMARY | 2025-01-21 09:26 | XMS_ITS | Encounter Summary ---
Author Organization [facility] Address [address] [place] [address] Care Team Providers Care Doctor Of Chiropractic Name Role Phone Sergey Oh MD Primary Care Provider [phone] Jean Mak MD Unavailable [phone] Reason for Visit * Reason Comments Med Refill Encounter Details Date Type Department Care Team (Late st Contact Info) Description 05/12/2024 Refill [facility] [address], [address] [place] [address] Danny Coon MD [facility] [address] [address] Social History Tobacco Use Types [...] Upcoming Encounters Date Type Department Care Team ([facility] st Contact Info) Description 01/31/2025 12:15 PM EST Appointment [facility] Nuclear Medicine [address] [place] [phone] 01/31/2025 2:30 PM EST Appointment [facility] Nuclear Medicine 800 [place] [address] 03/10/2025 8:00 AM EST Appointment [facility] G Radiology [address] [place] [address] 03/10/2025 10:50 AM EST Clinical Support [facility] [address] [place] [phone] 03/10/2025 11:00 AM EST Office Visit [facility] [address] [place] [phone] Edison Skaggs MD 800 [place] [address] 06/29/2025 12:30 PM EDT Clinical Support [facility] [address] [place] [phone] 06/29/2025 1:00 PM EDT Office Visit [facility] [address] [place] [phone] [place] [address] [place] [phone] documented as of this encounter Visit Diagnoses [...] documented as of this encounter Care Teams Doctor Of Chiropractic Relationship Specialty Start Date End Date Sergey Oh MD PCP - General 11/13/21 Jean Mak MD 800 [facility] Cancer [address] [address] Surgeon Otolaryngology 11/21/21 documented as of this encounter
--- OUTSIDE RECORDS SUMMARY | 2025-01-21 09:27 | XMS_ITS | Encounter Summary ---
Author Organization [facility] Address [address] [place] [address] Care Team Providers Care Order Caller Name Role Phone Segrey Oh MD Primary Care Provider [phone] Jean Mak MD Unavailable [phone] Encounter Details Date Type Department Care Team (Late st Contact Info) Description 01/03/2025 Telephone [facility] [address] [place] [phone] Edison Skaggs MD [address] [place] [address] Social History Tobacco Use Types Packs/Day Years [...] encounter Miscellaneous Notes * Telephone Encounter - Suha Valera - 01/04/2025 9:49 AM EDT Scheduled for 01/11 * Telephone Encounter - Suha Valera - 01/04/2025 9:48 AM EDT Requested * Telephone Encounter - Michelle Harris - 01/03/2025 4:53 PM EDT Patient Phone Message Reason for Call: Patient is needing her CT abdomen and pelvis scheduled sooner than 03-10. She can keep the appt with Alnimer and labs on 03-10. Please call patient with new appt and time. Best contact number and optimal time of day to reach caller: [phone] Note: Please do not reply to this message. Follow-up communication and further actions as a result of this message need to be communicated with the patient directly, if the patient is not active onMyChart. If the patient is active on MyChart, they will receive notification of the communication/outcome via PushCallhart. documented in this encounter Plan of Treatment Upcoming Encounters Date Type Department Care Team (Late st Contact Info) Description 01/31/2025 12:15 PM EST Appointment [facility] Nuclear Medicine [address] [place] [address] 01/31/2025 2:30 PM EST Appointment [facility] Nuclear Medicine [address] [place] [address] 03/10/2025 8:00 AM EST Appointment [facility] G Radiology [address] [place] [address] 03/10/2025 10:50 AM EST Clinical Support [facility] [address] [place] [phone] 03/10/2025 11:00 AM EST Office Visit [facility] [address] [place] [phone] Edison Skaggs MD 800 [place] [address] 06/29/2025 12:30 PM EDT Clinical Support [facility] [address] [phone] 06/29/2025 1:00 PM EDT Office Visit [facility] [address] [place] [phone] Danny Coon MD [address] [address] documented as of this encounter [...] documented as of this encounter Care Teams Order Caller Relationship Specialty Start Date End Date Sergey Oh MD PCP - General 11/13/21 Jean Mak MD [address] [place] [address] [phone] Surgeon Otolaryngology 11/21/21 documented as of this encounter
--- OUTSIDE RECORDS SUMMARY | 2025-01-21 09:27 | XMS_ITS | Clinical Summary ---
Author Organization Healthcare Address [address] [place] [address] Care Team Providers Care Mill Oiler Name Role Phone Sergey Oh MD Primary Care Provider [phone] Jean Mak MD Unavailable [phone] Allergies No known active allergies Medications albuterol 108 (90 Base) MCG/ACT inhaler INHALE 2 PUFFS BY MOUTH FOUR TIMES DAILY NEEDED FOR SHORTNESS OF BREATH OR WHEEZING 024 Active HYDROcodone-aceta minophen (Leflore) 7.5-325 MG tablet TAKE ONE (1) TABLET THREE (3) TIMES A DAY BY ORAL ROUTE AFTER MEAL(S) FOR 30 DAYS. Active cyclobenzaprine (Flexeril) 10 MG tablet Take 1 tablet (10 mg) by mouth 3 (three) times a day if needed for muscle spasms. Active tenofovir disoproxil fumarate (Viread) 300 MG tabletIndications :Chronic viral hepatitis B without delta agent and without coma (CMS/HCC) Take 1 tablet (300 mg) by mouth daily. 30 tablet 11 025 2025 Active ipratropium-albut armando (Duo-Neb) 0.5-2.5 mg/3 mL nebulizer solution Inhale 3 mL 4 times a day by nebulization route as directed for 30 days. 025 Active prochlorperazine (Compazine) 10 MG tablet Active ergocalciferol 1.25 MG (13993 UT) capsule TAKE ONE (1) CAPSULE BY MOUTH ONE (1) TIME PER WEEK. 12 capsule 3 Active docusate sodium (Colace) 100 MG capsule take one (1) capsule by mouth once daily Active levothyroxine (Synthroid, Levoxyl) 125 MCG tablet Take 1 tablet by mouth daily. 90 tablet 1 Active OLANZapine zydis (ZyPREXA ZYDIS) 5 MG disintegrating tablet Take 1 tablet (5 mg) by mouth every night. 30 tablet 024 2024 Discontinued hydrOXYzine HCl (Atarax) 50 MG tablet Take by mouth. 2024 Discontinued ketorolac (Toradol) 10 MG tablet TAKE ONE (1) TABLET FOUR (4) TIMES A DAY BY ORAL ROUTE AFTER MEAL(S) FOR FIVE (5) DAYS. 2024 Discontinued loperamide (Imodium) 2 MG capsule 2024 Discontinued levothyroxine (Synthroid, Levoxyl) 125 MCG tablet Take 1 tablet by mouth daily. 90 tablet 1 025 2024 Discontinued(R eorder) polyethylene glycol-electrolyt es (Nulytely) 420 g solution [...] Encounters Date Type Department Care Team Description 01/19/2025 Orders Only [facility] CC Hematology/BMT and Cellular Therapy Program 750 [facility], [address] [place] [phone] Edison Skaggs MD Malignant neoplasm of ascending colon (CMS/HCC) (Primary Dx) 01/11/2025 2:33 PM EDT - 01/11/2025 11:59 PM EDT Hospital Encounter [facility] 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); Multiple lung nodules on CT; Post-surgical hypothyroidism; Vitamin D deficiency; Elevated alkaline phosphatase level 12/29/2024 Travel 12/23/2024 11:00 AM EDT Clinical Support [facility] [address] [place] [phone] History of colon cancer, stage II 12/23/2024 11:00 AM EDT Office Visit [facility] [address] [place] [phone] Edison Skaggs MD History of colon cancer, stage II (Primary Dx) 12/23/2024 Travel 12/17/2024 Refill [facility] Res[facility] [address] [address] Danny Coon MD from Last 3 Months Immunizations Immunization Administration [...] oz) 12/29/2024 1:08 P M EDT Height 157.5 cm (5' 2.01 ) 12/23/2024 11:38 AM E DT Body Mass Index 27.9 12/23/2024 11:38 AM EDT Plan of Treatment Upcoming Encounters Date Type Department Care Team (Late st Contact Info) Description 01/31/2025 12:15 PM EST Appointment [facility] H Nuclear Medicine 800 [place] [address] 01/31/2025 2:30 PM EST Appointment [facility] H Nuclear Medicine [address] [place] [address] 03/10/2025 8:00 AM EST Appointment [facility] G Radiology [address] [place] [address] 03/10/2025 10:50 AM EST Clinical Support [facility] [address] [place] [address] 03/10/2025 11:00 AM EST Office Visit [facility] [address] [place] [address] Edison Skaggs MD 800 [place] [address] 06/29/2025 12:30 PM EDT Clinical Support [facility] Res[facility] 800 [facility], 2nd [place] [address] 06/29/2025 1:00 PM EDT Office Visit [facility] [address] [phone] Danny Coon MD [address] [address] Health Maintenance Due Date Last Done Comments [facility]-HIV Screening 1978 [facility]-/Child/Adol SDOH Screenings 1978 [facility]- SDOH Screenings 1996 [facility]-Adult SDOH Screenings 1996 [facility]-Hepatitis B Vaccines (1 of 3 - 19+ 3-dose series) 1997 09/29/2024, 06/21/2024, 06/21/2024, Additional history exists [facility]-Zoster Vaccines (1 of 2) 1997 [facility]-Pap Smear 1999 [facility]-Cervical Cancer Screening 2008 [facility]-HPV/Cotest 2008 [facility]-OLPWX-01 Vaccine (2 - Moderna risk series) 12/14/2021 [...] this topic Medical Devices Implanted Type Area Stable Hand Device Identifier Shelf Expiration Date Model / Serial / Lot Port Clearvue Power 8fr - [id number] Implanted:Qt y: 1 on 01/22/2024 by [place] in, Whitney Smith MD at [facility] Catheter Right: Subclavian Bard Perip[employer]-[id number] MEDIPORT 05/28/2025 [id number] / / [id number] Procedures Procedure Name Priority Date/Time Associated Diagnosis Comments CT CHEST W IV CONTRAST Routine 01/11/2025 3:08 PM EDT History of colon cancer, stage II CT ABDOMEN PELVIS W IV CONTRAST Routine 01/11/2025 3:08 PM EDT History of colon cancer, stage II ALKALINE PHOSPHATASE, ISOENZYMES Routine 12/29/2024 1:51 PM EDT Elevated alkaline phosphatase level FREE T4, PLASMA Routine 12/29/2024 1:51 PM EDT Post-surgical hypothyroidism TSH Routine 12/29/2024 1:51 PM EDT Post-surgical hypothyroidism CEA, SERUM Routine 12/23/2024 10:57 AM EDT History of colon cancer, stage II ACUTE HEPATITIS PANEL Routine 11/02/2021 2:42 PM EDT Thyroid cancer (CMS/HCC) from Last 3 Months or Most Recently Relevant to Health Maintenance Results * CT Abdomen Pelvis w IV Contrast [...] Total DLP (Dose-Length Product): 576.01 mGy.cm (accession [id number]), 576.01 mGy.cm (accession [id number]) Please note: The reported value represents the [...] Total DLP (Dose-Length Product): 576.01 mGy.cm (accession [id number]),576.01 mGy.cm (accession [id number]) Please note: The reported valuerepresents the total [...] cm (previously subcentimeter, series 3 image 118 dry022). A right common iliac lymph node measures [...] on 01/11/2025 4:15 PM Broderick Taylor MD IMAle CT PROCEDURES Final Resu lt * CT Chest w IV Contrast (01/11/2025 [...] Total DLP (Dose-Length Product): 576.01 mGy.cm (accession [id number]), 576.01 mGy.cm (accession [id number]) Please note: The reported value represents the [...] Total DLP (Dose-Length Product): 576.01 mGy.cm (accession [id number]),576.01 mGy.cm (accession [id number]) Please note: The reported valuerepresents the total [...] cm (previously subcentimeter, series 3 image 118 [id number]). A right common iliac lymph node measures [...] IMG CT PROCEDURES Final Resu lt * (ABNORMAL) Alkaline phosphatase, isoenzymes (12/29/2024 1:51 PM EDT) ALKALINE PHOSPHATASE 163(H) 40 - 120 U/L 01/02/2025 1:09 AM EDT [facility] ([facility]Plan) ALKALINE PHOSPHATASE BONE CALC 62(H) 0 - 55 U/L 01/02/2025 1:09 AM EDT [facility] ([facility]) ALKALINE PHOSPHATASE LIVER CALC 101(H) 0 - 94 U/L 01/02/2025 1:09 AM EDT [facility] ([facility]) ALKALINE PHOSPHATASE OTHER CALC 0 U/L 01/02/2025 1:09 AM EDT [facility] ([facility]) Blood Blood sample taken from central line / Unknown (Port) Long-term Catheter / Unknown 12/29/2024 1:51 PM EDT 12/29/2024 5:19 PM EDT Narrative [facility] ([facility]Plan) - 01/02/2025 1:09 AM EDT INTERPRETIVE INFORMATION: Alk-Phosphatase Liver Calc Bone Specific Alkaline Phosphatase (6100333) and 5'-nucleotidase (0152447) may be useful in identifying disorders of bone and liver, respectively. This test was developed and its performance characteristics determined by [facility]. It has not been cleared or approved by the U.S. Food and Drug Administration. This test was performed in a CLIA-certified laboratory and is intended for clinical purposes. Performed By: [facility] [address] [place] [address] Clerk Entry Level: Jose Gan MD, PhD CLIA Number: [id number] us Danny Coon MD LAB BLOOD ORDERABLES Final Resu lt Performing Organization Address City/[facility]/ZIP Co de Phone Number [facility] ([place]) [address] [place] [address] * (ABNORMAL) Thyroid Stimulating Hormone, Plasma (12/29/2024 1:51 PM EDT) Thyroid Stimulating Hormone, Plasma 0.01(L) 0.40 - 4.20 uIU/mL 12/29/2024 3:18 PM EDT [facility] Blood Blood sample taken from central line / Unknown (Port) Long-term Catheter / Unknown 12/29/2024 1:51 PM EDT 12/29/2024 2:36 PM EDT Narrative [facility] - 12/29/2024 3:18 PM EDT Trimester Specific Ranges TSH ( IU/mL) 1st Trimester 0.1 - 3.0 2nd Trimester 0.19 - 4.06 3rd Trimester 0.3 - 3.7 us Danny Coon MD LAB BLOOD ORDERABLES Final Resu lt [facility] [address] [place] [address] * Free T4, Plasma (12/29/2024 1:51 PM EDT) Free T4, Plasma 1.5 0.8 - 1.7 ng/dL 12/29/2024 3:18 PM EDT [facility] Blood Blood sample taken from central line / Unknown (Port) Long-term Catheter / Unknown 12/29/2024 1:51 PM EDT 12/29/2024 2:36 PM EDT Narrative [facility] - 12/29/2024 3:18 PM EDT Free T4 Trimester Specific Ranges 1st Trimester 0.9 - 1.50 ng/dL 2nd Trimester 0.7 - 1.40 ng/dL 3rd Trimester 0.7 - 1.24 ng/dL us Danny Coon MD LAB BLOOD ORDERABLES Final Resu lt Performing Organization Address [facility] [place] [address] * (ABNORMAL) CEA (12/23/2024 10:57 AM EDT) CEA, Serum 16.6(H) <4.0 ng/mL 12/23/2024 12:25 PM EDT [facility] Blood Venous blood specimen / Unknown (Port) Long-term Catheter / Unknown 12/23/2024 10:57 AM EDT 12/23/2024 11:44 AM EDT Narrative [facility] - 12/23/2024 12:25 PM EDT Normal range for smokers: < 5.5 ng/ml Normal range for non-smokers: <=4.0 ng/ml Performed by [facility] electrochemiluminescent immunoassay. Results obtained with different test methods or kits cannot be used interchangeably. us Broderick Taylor MD LAB BLOOD ORDERABLES Final R esult Performing Organization Address [facility] [place] [address] * (ABNORMAL) Hepatitis panel, acute (11/02/2021 2:42 PM EDT) Hepatitis B Surf Antigen Positive(A) Negative 11/02/2021 6:08 PM EDT [facility] Hepatitis C Antibody Negative Negative 11/02/2021 6:08 PM EDT [facility] Hepatitis A Antibody IgM Negative Negative 11/02/2021 6:08 PM EDT [facility] Hepatitis B Core Antibody IgM Negative Negative 11/02/2021 6:08 PM EDT [facility] Blood Venous blood specimen / Unknown Venipuncture / Unknown 11/02/2021 2:42 PM EDT 11/02/2021 2:50 PM EDT us Jean Mak MD LAB BLOOD ORDERABLES Final R esult [facility] [address] [place] [address] from Last 3 Months or Most Recently Relevant to Health Maintenance Insurance [facility] MEDICAID Advance Directives * Full Code (Latest Code Status on File) Date Activated Date Inactivated Comments 12/10/2021 3:22 PM 12/11/2021 9:56 PM Question Answer Comments Patient has decision-making capacity? Yes Care Teams Mill Oiler Relationship Specialty Start Date End Date Sergey Oh MD PCP - General 11/13/21 Jean Mak MD 800 [facility] Cancer [address] [address] Surgeon Otolaryngology 11/21/21
--- OUTSIDE RECORDS SUMMARY | 2025-01-21 09:27 | XMS_ITS | Encounter Summary ---
Author Organization Healthcare Address [address] [place] [id number] Care Team Providers Care Glass Artist Name Role Phone Sergey Oh MD Primary Care Provider [phone] Jean Mak MD Unavailable [phone] Encounter Details Date Type Department Care Team (Late st Contact Info) Description 01/08/2024 Lab Requisition [facility] H Lab 800 [place] [address] Broderick Taylor MD 800 [facility] [address] [place] [address] Polyp of colon Social History [...] Upcoming Encounters Date Type Department Care Team ([facility] st Contact Info) Description 01/31/2025 12:15 PM EST Appointment [facility] H Nuclear Medicine [address] [place] [phone] 01/31/2025 2:30 PM EST Appointment [facility] H Nuclear Medicine 800 [place] [address] 03/10/2025 8:00 AM EST Appointment P[facility] G Radiology [address] [place] [address] 03/10/2025 10:50 AM EST Clinical Support [facility] Multidisciplinary Oncology Clinic [address] [place] [address] 03/10/2025 11:00 AM EST Office Visit [facility] Multidisciplinary Oncology Clinic [address] [place] [phone] Edison Skaggs MD 800 [place] [address] 06/29/2025 12:30 PM EDT Clinical Support [facility] Res[facility] [address] [place] [phone] 06/29/2025 1:00 PM EDT Office Visit [facility] Head[facility] Neck [facility] Respiratory [address] [place] [address] [place] [address] [place] [phone] documented as of this encounter Procedures Procedure Name Priority Date/Time Associated Diagnosis Comments SURGICAL PATHOLOGY CONSULT Routine 01/08/2024 10:42 AM EDT Polyp of colon documented in this encounter Results * Surgical Pathology Consult (01/08/2024 10:42 AM EDT) Case Report Sugical Pathology Consult Case: [id number] Authorizing Provider: Broderick Taylor MD Collected: 01/08/20241041 Ordering Location: [facility] Lab Received: 01/08/20241041 Pathologist: Dimas Becker DO Specimen: Sigmoid Colon, [id number] 1:22 PM EDT [facility] Final Diagnosis OUTSIDE SLIDES; [id number], A-C; 12/12/23 A. COLON, POLYP AT 25 [...] PMS2, MSH2 AND MSH6). 1:22 PM EDT [facility] at 1321 EDT Clinical Information K63.5 - Polyp of colon [ICD-10-CM] 1:22 PM EDT [facility] Special and Immunohistochemical Stains Special [...] developed by and are performed at the [facility], [address] [place] [address]. All tests reported here, except those addressing [...] negativity on decalcified specimens. 1:22 PM EDT [facility] Gross Description A. [id number] Received along with a corresponding pathology report from [facility] ([place]) are 47 slide(s) labeled outside case: [id number] collected on 12/12/23. Also received 2 blocks as noted per Dr. Becker on 01/15/2024. 1:22 PM EDT [facility] Intradepartmental Consultation with Agreement Dr. Palmer (vascular invasion, staging and mesenteric margin). 1:22 PM EDT [facility] Note: A resident was involved in the service. I attest I examined the relevant preparations for the specimens and confirmed the diagnosis or interpretation. 1:22 PM EDT [facility] Tissue Sigmoid colon structure / Unknown 01/08/2024 10:42 AM EDT 01/08/2024 10:42 AM EDT Broderick Taylor MD LAB PATHOLOGY ORDERABLES Fin al Result [facility] 800 [place] [address] documented in this encounter Visit Diagnoses Diagnosis [...] documented as of this encounter Care Teams Glass Artist Relationship Specialty Start Date End Date Sergey Oh MD PCP - General 11/13/21 Jean Mak MD 800 [facility] Cancer [address] [phone] Surgeon Otolaryngology 11/21/21 documented as of this encounter
--- OUTSIDE RECORDS SUMMARY | 2025-01-21 09:27 | XMS_ITS | Encounter Summary ---
Author Organization Healthcare Address [address] [place] [address] Care Team Providers Care Automotive General Manager Name Role Phone Sergey Oh MD Primary Care Provider [phone] Jean Mak MD Unavailable [phone] Encounter Details Date Type Department Care Team (Latest Contact Info) Description 12/29/2024 Travel Social History Tobacco Use Types Packs/Day [...] EST Appointment [facility] H Nuclear Medicine 800 [place] [address] 01/31/2025 2:30 PM EST Appointment [facility] H Nuclear Medicine 800 [place] [address] 03/10/2025 8:00 AM EST Appointment [facility] G Radiology [address] [place] [address] 03/10/2025 10:50 AM EST Clinical Support [facility] [address] [place] [phone] 03/10/2025 11:00 AM EST Office Visit [facility] [address] [place] [phone] Edison Skaggs MD [address] [place] [address] 06/29/2025 12:30 PM EDT Clinical Support [facility] Res[facility] [address] [place] [phone] 06/29/2025 1:00 PM EDT Office Visit [facility] Res[facility] [address] [place] [phone] Danny Coon MD [address] [phone] documented as of this encounter Visit Diagnoses [...] as of this encounter Care Teams Automotive General Manager Relationship Specialty Start Date End Date Sergey Oh MD PCP - General 11/13/21 Jean Mak MD 800 [facility] Cancer [address] [address] Surgeon Otolaryngology 11/21/21 documented as of this encounter
--- OUTSIDE RECORDS SUMMARY | 2025-01-21 09:27 | XMS_ITS ---
Author Organization [facility] Address [address] [place] [address] Care Team Providers Care Canal Equipment Maintenance Supervisor Name Role Phone Sergey Oh MD Primary Care Provider [phone] Jean Mak MD Unavailable [phone] Active Problems Problem Noted Date Diagnosed Date [...] 5-FU (Adrucil) infusion - for home use ([facility] supplied) CADD 100MLfluoroura cil (Adrucil)OXALI platin [...]
--- OUTSIDE RECORDS SUMMARY | 2025-01-21 09:27 | XMS_ITS | Encounter Summary ---
Author Organization Healthcare Address [address] [place] [address] Care Team Providers Care Basket Assembler Name Role Phone Sergey Oh MD Primary Care Provider [phone] Jean Mak MD Unavailable [phone] Encounter Details Date Type Department Care Team (Late st Contact Info) Description 12/13/2023 Orders Only External Location 800 [place] [address] Provider, External Social History Tobacco Use Types [...] Upcoming Encounters Date Type Department Care Team ([facility] st Contact Info) Description 01/31/2025 12:15 PM EST Appointment [facility] H Nuclear Medicine 800 [place] [address] 01/31/2025 2:30 PM EST Appointment [facility] H Nuclear Medicine [address] [place] [address] 03/10/2025 8:00 AM EST Appointment [facility] G Radiology [address] [place] [address] 03/10/2025 10:50 AM EST Clinical Support [facility] [address] [place] [phone] 03/10/2025 11:00 AM EST Office Visit [facility] [address] [place] [phone] Edison Skaggs MD 800 [place] [address] 06/29/2025 12:30 PM EDT Clinical Support [facility] [address] [place] [phone] 06/29/2025 1:00 PM EDT Office Visit [facility] [address] [place] [phone] Danny Coon MD [address] [phone] documented as of this encounter Procedures Procedure [...] Noted Time PHQ-9 Depression Total Score: 11 10/21/2 022 9:07 AM EDT A fall risk assessment has been complete d for the patient 10/29/2023 12:12 PM EDT A Body Mass Index follow-up plan has been documented for the patient 09/10/2023 11:55 AM EDT documented as of this encounter Care Teams Basket Assembler Relationship Specialty Start Date End Date Sergey Oh MD PCP - General 11/13/21 Jean Mak MD 800 [facility] Cancer [address] [phone] Surgeon Otolaryngology 11/21/21 documented as of this encounter
--- OUTSIDE RECORDS SUMMARY | 2025-01-21 09:27 | XMS_ITS | Encounter Summary ---
Author Organization Healthcare Address [address] [place] [address] Care Team Providers Care Spike Machine Heater Name Role Phone Pcp, No Primary Care Provider Sergey Oswald MD Primary Care Provider [phone] Jean Mak MD Unavailable [phone] Encounter Details Date Type Department Care Team (Late Contact Info) Description 06/06/2016 Orders Only External Location 800 [place] [phone] Provider, External Social History Tobacco Use Types [...] Department Care Team (Late Contact Info) Description 01/31/2025 12:15 PM EST Appointment [facility] H Nuclear Medicine 800 [place] [phone] 01/31/2025 2:30 PM EST Appointment [facility] Nuclear Medicine 800 [place] [address] 03/10/2025 8:00 AM EST Appointment [facility] Radiology [address] [place] [phone] 03/10/2025 10:50 AM EST Clinical Support [facility] [address] [place] [address] 03/10/2025 11:00 AM EST Office Visit [facility] [address] [place] [phone] Edison Skaggs MD 800 [place] [address] 06/29/2025 12:30 PM EDT Clinical Support [facility] [address] [phone] 06/29/2025 1:00 PM EDT Office Visit [facility] [address] [phone] Danny Coon MD 2195 [facility] [address] [place] [phone] documented as of this encounter Procedures Procedure [...] on filedocumented in this encounter Care Teams Spike Machine Heater Relationship Specialty Start Date End Date Pcp, No [address] [place] [address] PCP - General Family Medicine 03/31/21 11/12/21 Sergey Oh MD [address] [place] [address] PCP - General 11/13/21 Jean Mak MD [address] [place] [address] [facility] [address] [place] [address] Surgeon Otolaryngology 11/21/21 documented as of this encounter
--- OUTSIDE RECORDS SUMMARY | 2025-01-21 09:27 | XMS_ITS | Encounter Summary ---
Author Organization Healthcare Address [address] [place] [address] Care Team Providers Care Senior Marketing Specialist Name Role Phone Sergey Oh MD Primary Care Provider Jean Mak MD Unavailable [phone] Encounter Details Date Type Department Care Team (Late st Contact Info) Description 12/06/2023 Orders Only External Location 800 [place] [address] Provider, External Social History Tobacco Use Types [...] Upcoming Encounters Date Type Department Care Team ([facility] st Contact Info) Description 01/31/2025 12:15 PM EST Appointment [facility] H Nuclear Medicine 800 [place] [address] 01/31/2025 2:30 PM EST Appointment [facility] Nuclear Medicine 800 [place] [address] 03/10/2025 8:00 AM EST Appointment [facility] G Radiology [address] [place] [address] 03/10/2025 10:50 AM EST Clinical Support [facility] [address] [place] [phone] 03/10/2025 11:00 AM EST Office Visit [facility] [address] [place] [phone] Edison Skaggs MD 800 [place] [address] 06/29/2025 12:30 PM EDT Clinical Support [facility] [address] [place] [phone] 06/29/2025 1:00 PM EDT Office Visit [facility] [address] [place] [phone] Danny Coon MD [address] [phone] documented as of this encounter Procedures Procedure [...] documented as of this encounter Care Teams Senior Marketing Specialist Relationship Specialty Start Date End Date Sergey Oh MD PCP - General 11/13/21 Jean Mak MD 800 [facility] Cancer [address] [address] Surgeon Otolaryngology 11/21/21 documented as of this encounter
--- OUTSIDE RECORDS SUMMARY | 2025-01-21 09:27 | XMS_ITS | Clinical Summary ---
Author Organization [facility] DI[facility] R Address [address] [place] [address] [place] [address] Phone Care Team Providers Care Interpreter Deaf Name Role Phone Riddhi Knox Dia Primary Care Provider [phone] Allergies No known active allergies Medications albuterol [...] Date Smoking Tobacco: Every Day Cigarettes 1 34.8 Started: 03/31/1990 Smokeless Tobacco: Never Alcohol Use [...] to complete this topic Insurance [address] [place] [address] [place] [facility] [address] [place] [address] MEDICAID Care Teams Interpreter Deaf Relationship Specialty Start Date End Date Riddhi Knox [address] [place] [address] PCP - General Gym Manager 03/01/13
--- OUTSIDE RECORDS SUMMARY | 2025-01-21 09:27 | XMS_ITS | Encounter Summary ---
Author Organization Healthcare Address [address] [place] [address] Care Team Providers Care Media Consultant Name Role Phone Pcp, No Primary Care Provider Sergey Oswald MD Primary Care Provider [phone] Jean Mak MD Unavailable [phone] Encounter Details Date Type Department Care Team (Late Contact Info) Description 10/13/2018 Orders Only External Location 800 [place] [address] Provider, External Social History Tobacco Use Types [...] EST Appointment [facility] Nuclear Medicine [address] [place] [address] 01/31/2025 2:30 PM EST Appointment [facility] Nuclear Medicine 800 [place] [address] 03/10/2025 8:00 AM EST Appointment P[facility] Radiology [address] [place] [address] 03/10/2025 10:50 AM EST Clinical Support [facility] [address] [place] [address] 03/10/2025 11:00 AM EST Office Visit [facility] [address] [place] [phone] Edison Skaggs MD 800 [place] [address] 06/29/2025 12:30 PM EDT Clinical Support [facility] [address] [address] 06/29/2025 1:00 PM EDT Office Visit [facility] [address] [phone] aDnny Coon MD 2195 [facility] 125 [place] [phone] documented as of this encounter Procedures Procedure [...] on filedocumented in this encounter Care Teams Media Consultant Relationship Specialty Start Date End Date Pcp, No 800 [place] [address] PCP - General Family Medicine 03/31/21 11/12/21 Sergey Oh MD [address] [place] [address] PCP - General 11/13/21 Jean Mak MD [address] [place] [address] [facility] [address] [place] [address] Surgeon Otolaryngology 11/21/21 documented as of this encounter
--- OUTSIDE RECORDS SUMMARY | 2025-01-21 09:27 | XMS_ITS | Encounter Summary ---
Author Organization Healthcare Address [address] [place] [address] Care Team Providers Care Tapper Helper Name Role Phone Sergey Oh MD Primary Care Provider [phone] Jean Mak MD Unavailable [phone] Encounter Details Date Type Department Care Team (Late st Contact Info) Description 11/23/2021 Lab Requisition [facility] H Lab 800 [place] [address] Jean Mak MD 800 [facility] [address] [place] [address] Malignant neoplasm of thyroid gland (CMS/HCC) Social History Tobacco Use Types Packs/Day Years Used Date Smoking Tobacco: Every Day Cigarettes 2 30.8 Started: 1994 Smokeless Tobacco: Former Comments:Vaping Alcohol [...] Upcoming Encounters Date Type Department Care Team ([facility] st Contact Info) Description 01/31/2025 12:15 PM EST Appointment [facility] Nuclear Medicine 800 [place] [address] 01/31/2025 2:30 PM EST Appointment [facility] Nuclear Medicine [address] [place] [phone] 03/10/2025 8:00 AM EST Appointment [facility] G Radiology [address] [place] [address] 03/10/2025 10:50 AM EST Clinical Support [facility] [address] [place] [phone] 03/10/2025 11:00 AM EST Office Visit [facility] [address] [place] [phone] Edison Skaggs MD 800 [place] [address] 06/29/2025 12:30 PM EDT Clinical Support [facility] [address] [place] [phone] 06/29/2025 1:00 PM EDT Office Visit [facility] [address] [place] [phone] Danny Coon MD [address] [address] documented as of this encounter Procedures Procedure Name Priority Date/Time Associated Diagnosis Comments SURGICAL PATHOLOGY CONSULT Routine 11/23/2021 10:54 AM EDT Malignant neoplasm of thyroid gland (CMS/HCC) documented in this encounter Results * Surgical Pathology Consult (11/23/2021 10:54 AM EDT) Case Report Sugical Pathology Consult Case: [id number] Authorizing Provider: Jean Mak MD Collected: 11/23/2021 1054 Ordering Location: [facility] Lab Received: 11/23/2021 1055 Pathologist: Sona Montiel MD Specimen: Thyroid, [id number] 11/27/2021 5:00 PM EDT [facility] Final Diagnosis A. THYROID, RIGHT LOBE, HEMITHYROIDECTOMY : (OUTSIDE CASE #[id number], COLLECTED DATED: 09/09/2019) - PAPILLARY THYROID CARCINOMA, [...] FOR EXTRANODAL EXTENSION. 11/27/2021 5:00 PM EDT [facility] at 1700 EDT Synoptic Checklist THYROID [...] IN LEFT LOBE. 11/27/2021 5:00 PM EDT [facility] Clinical Information C73 - Malignant neoplasm of thyroid gland [ICD-10-CM] 11/27/2021 5:00 PM EDT [facility] Gross Description A. [id number] Received along with a corresponding pathology report from [facility] are 39 slide(s) labeled outside case: [id number] collected on 09/09/2019. 11/27/2021 5:00 PM EDT [facility] Note: A resident was involved in the service. I attest I examined the relevant preparations for the specimens and confirmed the diagnosis or interpretation. 11/27/2021 5:00 PM EDT [facility] Tissue Thyroid structure / Unknown 11/23/2021 10:54 AM EDT 11/23/2021 10:55 AM EDT Jean Mak MD LAB PATHOLOGY ORDERABLES Fin yosvany Result [facility] [address] [place] [address] documented in this encounter Visit Diagnoses Diagnosis Malignant neoplasm of thyroid gland (CMS/HCC) Malignant neoplasm of thyroid gland documented in this encounter Additional Health Concerns Assessment Noted Time A fall risk assessment has been complete d for the patient 11/23/2021 12:37 PM EDT documented as of this encounter Care Teams Tapper Helper Relationship Specialty Start Date End Date Sergey Oh MD PCP - General 11/13/21 Jean Mak MD [address] [place] [address] [address] Surgeon Otolaryngology 11/21/21 documented as of this encounter
--- OUTSIDE RECORDS SUMMARY | 2025-01-21 09:27 | XMS_ITS | Encounter Summary ---
Author Organization Healthcare Address [address] [place] [address] Care Team Providers Care Legal Job Titles Name Role Phone Pcp, No Primary Care Provider Sergey Oswald MD Primary Care Provider [phone] Jean Mak MD Unavailable [phone] Encounter Details Date Type Department Care Team (Late Contact Info) Description 02/12/2017 Orders Only External Location [address] [place] [phone] Provider, External Social History Tobacco Use Types [...] EST Appointment [facility] Nuclear Medicine 800 [place] [address] 01/31/2025 2:30 PM EST Appointment [facility] Nuclear Medicine 800 [place] [address] 03/10/2025 8:00 AM EST Appointment [facility] Radiology [address] [place] [address] 03/10/2025 10:50 AM EST Clinical Support [facility] [address] [place] [address] 03/10/2025 11:00 AM EST Office Visit [facility] [address] [place] [address] Edison Skaggs MD 800 [place] [address] 06/29/2025 12:30 PM EDT Clinical Support [facility] [address] [phone] 06/29/2025 1:00 PM EDT Office Visit [facility] [address] [phone] Danny Coon MD 2195 [facility] 125 [place] [phone] documented as of this encounter Procedures Procedure [...] on filedocumented in this encounter Care Teams Legal Job Titles Relationship Specialty Start Date End Date Pcp, No [address] [place] [address] PCP - General Family Medicine 03/31/21 11/12/21 Sergey Oh MD [address] [place] [address] PCP - General 11/13/21 Jean Mak MD [address] [place] [address] [facility] [address]nd [place] [address] Surgeon Otolaryngology 11/21/21 documented as of this encounter
--- OUTSIDE RECORDS SUMMARY | 2025-01-21 09:27 | XMS_ITS | Encounter Summary ---
Author Organization Healthcare Address [address] [place] [address] Care Team Providers Care Dive Superintendent Name Role Phone Sergey Oh MD Primary Care Provider [phone] Jean Mak MD Unavailable Encounter Details Date Type Department Care Team (Late st Contact Info) Description 01/19/2025 Orders Only [facility] CC Hematology/BMT and Cellular Therapy Program [address] [place] [address] [place] [address] Edison Skaggs MD 800 [place] [address] Malignant neoplasm of ascending colon (CMS/HCC) (Primary Dx) Social History Tobacco Use Types [...] EST Appointment [facility] Nuclear Medicine 800 [place] [address] 01/31/2025 2:30 PM EST Appointment [facility] Nuclear Medicine 800 [place] [address] 03/10/2025 8:00 AM EST Appointment [facility] Radiology [address] [place] [address] 03/10/2025 10:50 AM EST Clinical Support [facility] [address] [place] [phone] 03/10/2025 11:00 AM EST Office Visit [facility] [address] [place] [phone] Edison Skaggs MD [address] [place] [address] 06/29/2025 12:30 PM EDT Clinical Support [facility] [address] [place] [address] 06/29/2025 1:00 PM EDT Office Visit [facility] [address] [place] [phone] Danny Coon MD [address] [phone] Scheduled Orders Name Type Priority Associated Diagnoses Orde r Schedule CEA Lab Routine Malignant neoplasm of ascending colon (CMS/HCC) Expected: 01/20/2025 (Approximate), Expires: 07/23/2026 [facility] Only Initial Draw Lab Routine Malignant neoplasm of ascending colon (CMS/HCC) Expected: 01/20/2025, Expires: 07/23/2026 [facility] Only Nay Managed Subsequent Draws Lab Routine Malignant neoplasm of ascending colon (CMS/HCC) Expected: 01/20/2025 (Approximate), Expires: 07/23/2026 documented as of this encounter Visit Diagnoses Diagnosis Malignant neoplasm of ascending colon (CMS/HCC)- Primary Malignant neoplasm of ascending colon documented in this encounter Additional Health Concerns Assessment Noted Time PHQ-9 Depression Total Score: 0 06/22/19 1:53 PM EDT A fall risk assessment has been complete d for the patient 12/29/2024 1:10 PM EDT A Body Mass Index follow-up plan has been documented for the patient 06/23/2024 9:55 AM EDT documented as of this encounter Care Teams Dive Superintendent Relationship Specialty Start Date End Date Sergey Oh MD PCP - General 11/13/21 Jean Mak MD 800 [facility] Cancer [address] [address] Surgeon Otolaryngology 11/21/21 documented as of this encounter
--- OUTSIDE RECORDS SUMMARY | 2025-01-21 09:27 | XMS_ITS | Encounter Summary ---
Author Organization Healthcare Address [address] [place] [address] Care Team Providers Care Er Manager Name Role Phone Sergey Oh MD Primary Care Provider [phone] Jean Mak MD Unavailable [phone] Encounter Details Date Type Department Care Team (Latest Contact Info) Description 01/11/2025 Travel Social History Tobacco Use Types Packs/Day [...] EST Appointment [facility] Nuclear Medicine 800 [place] [address] 01/31/2025 2:30 PM EST Appointment [facility] H Nuclear Medicine 800 [place] [address] 03/10/2025 8:00 AM EST Appointment [facility] G Radiology [address] [place] [address] 03/10/2025 10:50 AM EST Clinical Support [facility] [address] [place] [phone] 03/10/2025 11:00 AM EST Office Visit [facility] [address] [place] [phone] Edison Skaggs MD [address] [place] [address] 06/29/2025 12:30 PM EDT Clinical Support [facility] [address] [place] [phone] 06/29/2025 1:00 PM EDT Office Visit [facility] [address] [place] [phone] Danny Coon MD [address] [phone] documented as of this encounter Visit Diagnoses [...] documented as of this encounter Care Teams Er Manager Relationship Specialty Start Date End Date Sergey Oh MD PCP - General 11/13/21 Jean Mak MD 800 [facility] Cancer [address] [address] Surgeon Otolaryngology 11/21/21 documented as of this encounter
--- OUTSIDE RECORDS SUMMARY | 2025-01-21 09:28 | XMS_ITS | Encounter Summary ---
Author Organization Healthcare Address [address] [place] [address] Care Team Providers Care Aircraft Assembler Name Role Phone Pcp, No Primary Care Provider Sergey Oswald MD Primary Care Provider [phone] Jean Mak MD Unavailable [phone] Encounter Details Date Type Department Care Team (Late Contact Info) Description 08/11/2020 Orders Only External Location 800 [place] [address] Provider, External Social History Tobacco Use Types [...] EST Appointment [facility] Nuclear Medicine 800 [place] [phone] 01/31/2025 2:30 PM EST Appointment [facility] Nuclear Medicine 800 [place] [address] 03/10/2025 8:00 AM EST Appointment [facility] G Radiology [address] [place] [phone] 03/10/2025 10:50 AM EST Clinical Support [facility] 800 [place] [address] 03/10/2025 11:00 AM EST Office Visit [facility] [address] [place] [phone] Edison Skaggs MD 800 [place] [address] 06/29/2025 12:30 PM EDT Clinical Support [facility] [address] [address] 06/29/2025 1:00 PM EDT Office Visit [facility] [address] [phone] Danny Coon MD [address] [phone] documented as of this encounter Procedures Procedure [...] on filedocumented in this encounter Care Teams Aircraft Assembler Relationship Specialty Start Date End Date Pcp, No 800 [place] [address] PCP - General Family Medicine 03/31/21 11/12/21 Sergey Oh MD [address] [place] [address] PCP - General 11/13/21 Jean Mak MD [address] [place] [address] [facility] [address]nd [place] [address] Surgeon Otolaryngology 11/21/21 documented as of this encounter
--- OUTSIDE RECORDS SUMMARY | 2025-01-21 09:28 | XMS_ITS | Encounter Summary ---
Author Organization Healthcare Address [address] [place] [address] Care Team Providers Care Glass Block Bender Name Role Phone Sergey Oh MD Primary Care Provider [phone] Jean Mak MD Unavailable [phone] Encounter Details Date Type Department Care Team (Late st Contact Info) Description 12/06/2023 Orders Only External Location 800 [place] [address] Provider, External Social History Tobacco Use Types [...] Upcoming Encounters Date Type Department Care Team ([facility] st Contact Info) Description 01/31/2025 12:15 PM EST Appointment [facility] H Nuclear Medicine 800 [place] [address] 01/31/2025 2:30 PM EST Appointment [facility] H Nuclear Medicine 800 [place] [address] 03/10/2025 8:00 AM EST Appointment [facility] G Radiology [address] [place] [address] 03/10/2025 10:50 AM EST Clinical Support [facility] [address] [place] [phone] 03/10/2025 11:00 AM EST Office Visit [facility] [address] [place] [phone] Edison Skaggs MD 800 [place] [address] 06/29/2025 12:30 PM EDT Clinical Support [facility] [address] [address] 06/29/2025 1:00 PM EDT Office Visit [facility] [address] [place] [phone] Danny Coon MD [address] [phone] documented as of this encounter Procedures Procedure [...] as of this encounter Care Teams Glass Block Bender Relationship Specialty Start Date End Date Sergey Oh MD PCP - General 11/13/21 Jean Mak MD [address] [facility] Cancer [address] [address] Surgeon Otolaryngology 11/21/21 documented as of this encounter
--- OUTSIDE RECORDS SUMMARY | 2025-01-21 09:28 | XMS_ITS | Encounter Summary ---
Author Organization Healthcare Address [address] [place] [address] Care Team Providers Care Spooling Operator Name Role Phone Pcp, No Primary Care Provider Sergey Oswald MD Primary Care Provider [phone] Jean Mak MD Unavailable [phone] Encounter Details Date Type Department Care Team (Late Contact Info) Description 05/22/2021 Orders Only External Location 800 [place] [address] Provider, External Social History Tobacco Use Types [...] EST Appointment [facility] Nuclear Medicine 800 [place] [address] 01/31/2025 2:30 PM EST Appointment [facility] H Nuclear Medicine [address] [place] [address] 03/10/2025 8:00 AM EST Appointment [facility] G Radiology [address] [place] [phone] 03/10/2025 10:50 AM EST Clinical Support [facility] 800 [place] [address] 03/10/2025 11:00 AM EST Office Visit [facility] [address] [place] [phone] Edison Skaggs MD 800 [place] [address] 06/29/2025 12:30 PM EDT Clinical Support [facility] [address] [address] 06/29/2025 1:00 PM EDT Office Visit [facility] [address] [phone] Danny Coon MD [address] [phone] documented as of this encounter Procedures Procedure [...] on filedocumented in this encounter Care Teams Spooling Operator Relationship Specialty Start Date End Date Pcp, No 800 [place] [address] PCP - General Family Medicine 03/31/21 11/12/21 Sergey Oh MD [address] [place] [address] PCP - General 11/13/21 Jean Mak MD [address] [place] [address] [facility] [address]nd [place] [address] Surgeon Otolaryngology 11/21/21 documented as of this encounter
--- OUTSIDE RECORDS SUMMARY | 2025-01-21 09:28 | XMS_ITS | Encounter Summary ---
Author Organization Healthcare Address [address] [place] [address] Care Team Providers Care Volleyball Assistant Coach Name Role Phone Sergey Oh MD Primary Care Provider [phone] Jean Mak MD Unavailable [phone] Encounter Details Date Type Department Care Team (Late st Contact Info) Description 12/13/2023 Orders Only External Location 800 [place] [address] Provider, External Social History Tobacco Use Types [...] Upcoming Encounters Date Type Department Care Team ([facility] st Contact Info) Description 01/31/2025 12:15 PM EST Appointment [facility] H Nuclear Medicine 800 [place] [address] 01/31/2025 2:30 PM EST Appointment [facility] H Nuclear Medicine 800 [place] [address] 03/10/2025 8:00 AM EST Appointment P[facility] G Radiology [address] [place] [address] 03/10/2025 10:50 AM EST Clinical Support [facility] [address] [place] [phone] 03/10/2025 11:00 AM EST Office Visit [facility] [address] [place] [phone] Edison Skaggs MD 800 [place] [address] 06/29/2025 12:30 PM EDT Clinical Support [facility] [address] [place] [phone] 06/29/2025 1:00 PM EDT Office Visit [facility] [address] [place] [phone] Danny Coon MD [address] [phone] documented as of this encounter Procedures Procedure [...] documented as of this encounter Care Teams Volleyball Assistant Coach Relationship Specialty Start Date End Date Sergey Oh MD PCP - General 11/13/21 Jean Mak MD 800 [facility] Cancer [address] [address] Surgeon Otolaryngology 11/21/21 documented as of this encounter
--- OUTSIDE RECORDS SUMMARY | 2025-01-21 09:28 | XMS_ITS | Encounter Summary ---
Author Organization Healthcare Address [address] [place] [address] Care Team Providers Care Scale Technician Name Role Phone Sergey Oh MD Primary Care Provider [phone] Jean Mak MD Unavailable Encounter Details Date Type Department Care Team (Late st Contact Info) Description 12/11/2023 Orders Only External Location 800 [place] [address] Provider, External Social History Tobacco Use Types [...] EST Appointment [facility] Nuclear Medicine 800 [place] [address] 01/31/2025 2:30 PM EST Appointment [facility] H Nuclear Medicine 800 [place] [address] 03/10/2025 8:00 AM EST Appointment [facility] G Radiology [address] [place] [address] 03/10/2025 10:50 AM EST Clinical Support [facility] [address] [place] [phone] 03/10/2025 11:00 AM EST Office Visit [facility] [address] [place] [phone] Edison Skaggs MD 800 [place] [address] 06/29/2025 12:30 PM EDT Clinical Support [facility] [address] [place] [phone] 06/29/2025 1:00 PM EDT Office Visit [facility] [address] [place] [phone] Danny Coon MD [address] [phone] documented as of this encounter Procedures Procedure [...] documented as of this encounter Care Teams Scale Technician Relationship Specialty Start Date End Date Sergey Oh MD PCP - General 11/13/21 Jean Mak MD 800 [facility] Cancer [address] [address] Surgeon Otolaryngology 11/21/21 documented as of this encounter
--- OUTSIDE RECORDS SUMMARY | 2025-01-21 09:28 | XMS_ITS | Encounter Summary ---
Author Organization Healthcare Address [address] [place] [address] Care Team Providers Care Hull Line Crew Member Name Role Phone Sergey Oh MD Primary Care Provider [phone] Jean Mak MD Unavailable [phone] Encounter Details Date Type Department Care Team (Late st Contact Info) Description 12/06/2023 Orders Only External Location 800 [place] [address] Daryl Pina MD [address] [place] [address] Social History Tobacco Use Types Packs/Day [...] Upcoming Encounters Date Type Department Care Team ([facility] Contact Info) Description 01/31/2025 12:15 PM EST Appointment P[facility] H Nuclear Medicine 800 [place] [address] 01/31/2025 2:30 PM EST Appointment [facility] H Nuclear Medicine 800 [place] [address] 03/10/2025 8:00 AM EST Appointment P[facility] G Radiology [address] [place] [address] 03/10/2025 10:50 AM EST Clinical Support [facility] [address] [place] [phone] 03/10/2025 11:00 AM EST Office Visit [facility] [address] [place] [phone] Edison Skaggs MD 800 [place] [address] 06/29/2025 12:30 PM EDT Clinical Support [facility] [address] [place] [phone] 06/29/2025 1:00 PM EDT Office Visit [facility] [address] [place] [phone] Danny Coon MD [address] [phone] documented as of this encounter Procedures Procedure [...] documented as of this encounter Care Teams Hull Line Crew Member Relationship Specialty Start Date End Date Sergey Oh MD PCP - General 11/13/21 Jean Mak MD [address] [place] [address] [phone] Surgeon Otolaryngology 11/21/21 documented as of this encounter
--- OUTSIDE RECORDS SUMMARY | 2025-01-21 09:29 | XMS_ITS | Encounter Summary ---
Author Organization Healthcare Address [address] [place] [address] Care Team Providers Care Barrel Planer Name Role Phone Pcp, No Primary Care Provider Sergey Oswald MD Primary Care Provider [phone] Jean Mak MD Unavailable [phone] Encounter Details Date Type Department Care Team (Late Contact Info) Description 08/30/2019 Orders Only External Location [address] [place] [phone] Provider, External Social History Tobacco Use Types [...] EST Appointment [facility] Nuclear Medicine 800 [place] [phone] 01/31/2025 2:30 PM EST Appointment [facility] Nuclear Medicine 800 [place] [address] 03/10/2025 8:00 AM EST Appointment [facility] Radiology [address] [place] [phone] 03/10/2025 10:50 AM EST Clinical Support [facility] 800 [place] [address] 03/10/2025 11:00 AM EST Office Visit [facility] 800 [place] [phone] Edison Skaggs MD 800 [place] [address] 06/29/2025 12:30 PM EDT Clinical Support [facility] [address] [address] 06/29/2025 1:00 PM EDT Office Visit [facility] [address] [phone] Danny Coon MD 2195 [facility] 125 [place] [phone] documented as of this encounter Procedures Procedure [...] on filedocumented in this encounter Care Teams Barrel Planer Relationship Specialty Start Date End Date Pcp, No 800 [place] [address] PCP - General Family Medicine 03/31/21 11/12/21 Sergey Oh MD [address] [place] [address] PCP - General 11/13/21 Jean Mak MD [address] [place] [address] [facility] [address] [place] [phone] Surgeon Otolaryngology 11/21/21 documented as of this encounter
--- OUTSIDE RECORDS SUMMARY | 2025-01-21 09:29 | XMS_ITS | Encounter Summary ---
Author Organization [facility] Address [address] 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 Procedures NM Bone Scan Whole Body Danny Coon MD [address] [address] Phone: tel: fax: Referral ID Status Reason Start Date Expiration Date V isits Requested Visits Authorized [id number] Authorized 01/12/2025 07/14/2026 2 2 Encounter Details Date Type Department Care Team ([facility] Contact Info) Description 10/06/2024 Results Follow-Up [facility] 800 [facility], 2nd [place] [phone] Danny Coon MD [address] [facility] 125 [place] [address] Social History Tobacco Use Types [...] as of this encounter Miscellaneous Notes * Addendum Note - Danny Coon MD - 01/12/2025 10:54 AM EDTAddended by: DANNY COON on: 01/12/2025 10:54 AM Modules accepted: Orders documented in this encounter Plan of Treatment Upcoming Encounters Date Type Department Care Team (Late st Contact Info) Description 01/31/2025 12:15 PM EST Appointment [facility] Nuclear Medicine [address] [place] [phone] 01/31/2025 2:30 PM EST Appointment [facility] Nuclear Medicine [address] [place] [phone] 03/10/2025 8:00 AM EST Appointment [facility] G Radiology [address] [place] [phone] 03/10/2025 10:50 AM EST Clinical Support [facility] [address] [place] [phone] 03/10/2025 11:00 AM EST Office Visit [facility] [address] [place] [phone] Edison Skaggs MD 800 [place] [address] 06/29/2025 12:30 PM EDT Clinical Support [facility] [address] [place] [phone] 06/29/2025 1:00 PM EDT Office Visit [facility] [address] [place] [phone] Danny oCon MD [address] [place] [phone] Scheduled Orders Name Type Priority Associated Diagnoses Orde r Schedule NM Bone Scan Whole Body Imaging Routine Elevated alkaline phosphatase level 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 Expected: 01/12/2025 (Approximate), Expires: 07/16/2026 documented as of this encounter Visit Diagnoses Diagnosis Elevated alkaline phosphatase level- Primary Malignant neoplasm of sigmoid colon (CMS/HCC) Malignant neoplasm of sigmoid colon 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
--- OUTSIDE RECORDS SUMMARY | 2025-01-21 09:29 | XMS_ITS | Encounter Summary ---
Author Organization Healthcare Address [address] [place] [address] Care Team Providers Care Senior Infrastructure Engineer Name Role Phone Pcp, No Primary Care Provider Sergey Oswald MD Primary Care Provider [phone] Jean Mak MD Unavailable [phone] Encounter Details Date Type Department Care Team (Late Contact Info) Description 06/30/2020 Orders Only External Location 800 [place] [phone] Provider, External Social History Tobacco Use Types [...] EST Appointment [facility] Nuclear Medicine 800 [place] [phone] 01/31/2025 2:30 PM EST Appointment [facility] Nuclear Medicine 800 [place] [address] 03/10/2025 8:00 AM EST Appointment [facility] G Radiology [address] [place] [phone] 03/10/2025 10:50 AM EST Clinical Support [facility] 800 [place] [address] 03/10/2025 11:00 AM EST Office Visit [facility] [address] [place] [phone] Edison Skaggs MD 800 [place] [address] 06/29/2025 12:30 PM EDT Clinical Support [facility] [address] [address] 06/29/2025 1:00 PM EDT Office Visit [facility] [address] [phone] Danny Coon MD [address] [phone] documented as of this encounter Procedures Procedure [...] on filedocumented in this encounter Care Teams Senior Infrastructure Engineer Relationship Specialty Start Date End Date Pcp, No 800 [place] [address] PCP - General Family Medicine 03/31/21 11/12/21 Sergey Oh MD [address] [place] [address] PCP - General 11/13/21 Jean Mak MD [address] [place] [address] [facility] [address] [place] [phone] Surgeon Otolaryngology 11/21/21 documented as of this encounter
--- OUTSIDE RECORDS SUMMARY | 2025-01-21 09:29 | XMS_ITS | Encounter Summary ---
Author Organization Healthcare Address [address] [place] [address] Care Team Providers Care Automobile Sales Consultant Name Role Phone Pcp, No Primary Care Provider Sergey Oswald MD Primary Care Provider [phone] Jean Mak MD Unavailable [phone] Encounter Details Date Type Department Care Team (Late Contact Info) Description 01/22/2020 Orders Only External Location 800 [place] [phone] Provider, External Social History Tobacco Use Types [...] EST Appointment [facility] Nuclear Medicine 800 [place] [phone] 01/31/2025 2:30 PM EST Appointment [facility] Nuclear Medicine 800 [place] [address] 03/10/2025 8:00 AM EST Appointment [facility] Radiology [address] [place] [phone] 03/10/2025 10:50 AM EST Clinical Support [facility] 800 [place] [address] 03/10/2025 11:00 AM EST Office Visit [facility] 800 [place] [phone] Edison Skaggs MD 800 [place] [address] 06/29/2025 12:30 PM EDT Clinical Support [facility] [address] [phone] 06/29/2025 1:00 PM EDT Office Visit [facility] [address] [phone] Danny Coon MD 2195 [facility] 125 [place] [phone] documented as of this encounter Procedures Procedure [...] filedocumented in this encounter Care Teams Automobile Sales Consultant Relationship Specialty Start Date End Date Pcp, No 800 [place] [address] PCP - General Family Medicine 03/31/21 11/12/21 Sergey Oh MD [address] [place] [address] PCP - General 11/13/21 Jean Mak MD [address] [place] [address] [facility] [address] [place] [phone] Surgeon Otolaryngology 11/21/21 documented as of this encounter
--- OUTSIDE RECORDS SUMMARY | 2025-01-21 09:29 | XMS_ITS | Encounter Summary ---
Author Organization Healthcare Address [address] [place] [address] Care Team Providers Care Build Engineer Name Role Phone Pcp, No Primary Care Provider Sergey Oswald MD Primary Care Provider [phone] Jean Mak MD Unavailable [phone] Encounter Details Date Type Department Care Team (Late Contact Info) Description 01/22/2020 Orders Only External Location 800 [place] [phone] Provider, External Social History Tobacco Use Types [...] EST Appointment [facility] Nuclear Medicine 800 [place] [phone] 01/31/2025 2:30 PM EST Appointment [facility] Nuclear Medicine 800 [place] [address] 03/10/2025 8:00 AM EST Appointment [facility] Radiology [address] [place] [phone] 03/10/2025 10:50 AM EST Clinical Support [facility] 800 [place] [address] 03/10/2025 11:00 AM EST Office Visit [facility] [address] [place] [phone] Edison Skaggs MD 800 [place] [address] 06/29/2025 12:30 PM EDT Clinical Support [facility] [address] [address] 06/29/2025 1:00 PM EDT Office Visit [facility] [address] [phone] Danny Coon MD 2195 [facility] 125 [place] [phone] documented as of this encounter Procedures Procedure [...] on filedocumented in this encounter Care Teams Build Engineer Relationship Specialty Start Date End Date Pcp, No 800 [place] [address] PCP - General Family Medicine 03/31/21 11/12/21 Sergey Oh MD [address] [place] [address] PCP - General 11/13/21 Jean Mak MD [address] [place] [address] [facility] [address] [place] [phone] Surgeon Otolaryngology 11/21/21 documented as of this encounter
--- OUTSIDE RECORDS SUMMARY | 2025-01-21 09:29 | XMS_ITS | Encounter Summary ---
Author Organization Healthcare Address [address] [place] [address] Care Team Providers Care Rn Renal Name Role Phone Pcp, No Primary Care Provider Sergey Oswald MD Primary Care Provider [phone] eJan Mak MD Unavailable [phone] Encounter Details Date Type Department Care Team (Late Contact Info) Description 07/15/2019 Orders Only External Location 800 [place] [phone] Provider, External Social History Tobacco Use Types [...] EST Appointment [facility] Nuclear Medicine 800 [place] [phone] 01/31/2025 2:30 PM EST Appointment [facility] Nuclear Medicine 800 [place] [address] 03/10/2025 8:00 AM EST Appointment [facility] Radiology [address] [place] [phone] 03/10/2025 10:50 AM EST Clinical Support [facility] 800 [place] [address] 03/10/2025 11:00 AM EST Office Visit [facility] 800 [place] [address] Edison Skaggs MD 800 [place] [address] 06/29/2025 12:30 PM EDT Clinical Support [facility] [address] [address] 06/29/2025 1:00 PM EDT Office Visit [facility] [address] [phone] Danny Coon MD 2195 [facility] 125 [place] [phone] documented as of this encounter Procedures Procedure [...] filedocumented in this encounter Care Teams Rn Renal Relationship Specialty Start Date End Date Pcp, No 800 [place] [address] PCP - General Family Medicine 03/31/21 11/12/21 Sergey Oh MD [address] [place] [address] PCP - General 11/13/21 Jean Mak MD [address] [place] [address] [facility] [address] [place] [phone] Surgeon Otolaryngology 11/21/21 documented as of this encounter
--- OUTSIDE RECORDS SUMMARY | 2025-01-21 09:29 | XMS_ITS | Encounter Summary ---
Author Organization Healthcare Address [address] [place] [address] Care Team Providers Care Supervisor Paste Plant Name Role Phone Pcp, No Primary Care Provider Sergey Oswald MD Primary Care Provider [phone] Jean Mak MD Unavailable [phone] Encounter Details Date Type Department Care Team (Late st Contact Info) Description 10/31/2021 Lab Requisition [facility] H Lab 800 [place] [address] Jean Mak MD 800 [facility] [address] [place] [phone] Nontoxic single thyroid nodule Social History Tobacco [...] Info) Description 01/31/2025 12:15 PM EST Appointment [facility] Nuclear Medicine 800 [place] [address] 01/31/2025 2:30 PM EST Appointment [facility] Nuclear Medicine [address] [place] [address] 03/10/2025 8:00 AM EST Appointment [facility] Radiology [address] [place] [address] 03/10/2025 10:50 AM EST Clinical Support [facility] Multidisciplinary Oncology Clinic [address] [place] [address] 03/10/2025 11:00 AM EST Office Visit [facility] Multidisciplinary Oncology Clinic [address] [place] [phone] Edison Skaggs MD 800 [place] [address] 06/29/2025 12:30 PM EDT Clinical Support [facility] 800 [facility], 2nd [place] [address] 06/29/2025 1:00 PM EDT Office Visit [facility] Res[facility] 800 [facility], [address] [place] [address] Danny Coon MD 2195 [facility] 125 [place] [phone] documented as of this encounter Visit Diagnoses Diagnosis Nontoxic single thyroid nodule Nontoxic uninodular goiter documented in this encounter Care Teams Supervisor Paste Plant Relationship Specialty Start Date End Date Pcp, No 800 [place] [address] PCP - General Family Medicine 03/31/21 11/12/21 Sergey Oh MD [address] [place] [address] PCP - General 11/13/21 Jean Mak MD 800 [facility] [address] [place] [phone] Surgeon Otolaryngology 11/21/21 documented as of this encounter
--- OUTSIDE RECORDS SUMMARY | 2025-01-21 09:29 | XMS_ITS | Encounter Summary ---
Author Organization Healthcare Address [address] [place] [address] Care Team Providers Care Chain Saw Driver Name Role Phone Pcp, No Primary Care Provider Sergey Oswald MD Primary Care Provider [phone] Jean Mak MD Unavailable [phone] Encounter Details Date Type Department Care Team (Late Contact Info) Description 08/09/2021 Orders Only External Location 800 [place] [phone] Provider, External Social History Tobacco Use Types [...] EST Appointment [facility] Nuclear Medicine [address] [place] [phone] 01/31/2025 2:30 PM EST Appointment [facility] Nuclear Medicine 800 [place] [address] 03/10/2025 8:00 AM EST Appointment [facility] G Radiology [address] [place] [phone] 03/10/2025 10:50 AM EST Clinical Support [facility] 800 [place] [address] 03/10/2025 11:00 AM EST Office Visit [facility] [address] [place] [phone] Edison Skaggs MD 800 [place] [address] 06/29/2025 12:30 PM EDT Clinical Support [facility] [address] [address] 06/29/2025 1:00 PM EDT Office Visit [facility] [address] [phone] Danny Coon MD [address] [phone] documented as of this encounter Procedures Procedure [...] on filedocumented in this encounter Care Teams Chain Saw Driver Relationship Specialty Start Date End Date Pcp, No 800 [place] [address] PCP - General Family Medicine 03/31/21 11/12/21 Sergey Oh MD [address] [place] [address] PCP - General 11/13/21 Jean Mak MD [address] [place] [address] [facility] 2nd [place] [address] Surgeon Otolaryngology 11/21/21 documented as of this encounter
--- OUTSIDE RECORDS SUMMARY | 2025-01-21 09:29 | XMS_ITS | Encounter Summary ---
Author Organization Healthcare Address [address] [place] [address] Care Team Providers Care Incident Response Consultant Name Role Phone Pcp, No Primary Care Provider Sergey Oswald MD Primary Care Provider [phone] Jean Mak MD Unavailable [phone] Encounter Details Date Type Department Care Team (Late Contact Info) Description 02/14/2020 Orders Only External Location 800 [place] [address] Provider, External Social History Tobacco Use Types [...] EST Appointment [facility] Nuclear Medicine 800 [place] [phone] 01/31/2025 2:30 PM EST Appointment [facility] Nuclear Medicine [address] [place] [address] 03/10/2025 8:00 AM EST Appointment [facility] Radiology [address] [place] [phone] 03/10/2025 10:50 AM EST Clinical Support [facility] 800 [place] [address] 03/10/2025 11:00 AM EST Office Visit [facility] [address] [place] [phone] Edison Skaggs MD 800 [place] [address] 06/29/2025 12:30 PM EDT Clinical Support [facility] [address] [phone] 06/29/2025 1:00 PM EDT Office Visit [facility] [address] [phone] Danny Coon MD 2195 [facility] 125 [place] [phone] documented as of this encounter Procedures Procedure [...] on filedocumented in this encounter Care Teams Incident Response Consultant Relationship Specialty Start Date End Date Pcp, No 800 [place] [address] PCP - General Family Medicine 03/31/21 11/12/21 Sergey Oh MD [address] [place] [address] PCP - General 11/13/21 Jean Mak MD [address] [place] [address] [facility] 2nd [place] [address] Surgeon Otolaryngology 11/21/21 documented as of this encounter
--- OUTSIDE RECORDS SUMMARY | 2025-01-21 09:29 | XMS_ITS | Encounter Summary ---
Author Organization Healthcare Address [address] [place] [address] Care Team Providers Care Marina Manager Name Role Phone Pcp, No Primary Care Provider Sergey Oswald MD Primary Care Provider [phone] Jean Mak MD Unavailable [phone] Encounter Details Date Type Department Care Team (Late Contact Info) Description 10/29/2021 Lab Requisition [facility] H Lab 800 [place] [phone] Jean Mak MD 800 [facility] Cancer [address] [address] Localized swelling, mass and lump, [...] EST Appointment [facility] H Nuclear Medicine 800 [place] [phone] 01/31/2025 2:30 PM EST Appointment [facility] Nuclear Medicine 800 [place] [address] 03/10/2025 8:00 AM EST Appointment [facility] G Radiology [address] [place] [address] 03/10/2025 10:50 AM EST Clinical Support [facility] [address] [place] [phone] 03/10/2025 11:00 AM EST Office Visit [facility] [address] [place] [phone] Edison Skaggs MD 800 [place] [address] 06/29/2025 12:30 PM EDT Clinical Support [facility] [address] [place] [phone] 06/29/2025 1:00 PM EDT Office Visit [facility] [address] [place] [phone] Danny Coon MD [address] [phone] documented as of this encounter Procedures Procedure Name Priority Date/Time Associated Diagnosis Comments CYTOLOGY CONSULT Routine 10/29/2021 10:3 1 AM EDT Localized swelling, mass and lump, neck documented in this encounter Results * Cytology Consult (10/29/2021 10:31 AM EDT) Case Report Cytology Case: [id number] Authorizing Provider: Jean Mak MD Collected: 10/29/2021 1031 Ordering Location: [facility] Lab Received: 10/29/2021 1031 Pathologist: Sourav Olvera MD Specimen: Neck, FNA, [id number] 10/30/2021 12:43 PM EDT [facility] Final Diagnosis A. 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 [id number] For clinical data and diagnosis (SUSPICIOUS) for this specimen ([id number]/FN [id number]) see final report issued by [facility] Pathology Department. 10/30/2021 12:43 PM EDT [facility] Fine Needle Aspirate Neck structure / Unknown 10/29/2021 10:31 AM EDT 10/29/2021 10:31 AM EDT us Jean Mak MD LAB PATHOLOGY ORDERABLES Fin al Result [facility] 800 [place] [address] documented in this encounter Visit Diagnoses Diagnosis Localized swelling, mass and lump, neck Swelling, mass, or lump in head and neck documented in this encounter Care Teams Marina Manager Relationship Specialty Start Date End Date Pcp, No 800 [place] [address] PCP - General Family Medicine 03/31/21 11/12/21 Sergey Oh MD [address] [place] [address] PCP - General 11/13/21 Jean Mak MD [address] [place] [address] [facility] [address] [place] [phone] Surgeon Otolaryngology 11/21/21 documented as of this encounter
--- OUTSIDE RECORDS SUMMARY | 2025-01-21 09:29 | XMS_ITS | Encounter Summary ---
Author Organization Healthcare Address [address] [place] [address] Care Team Providers Care Family Dentist Name Role Phone Sergey Oh MD Primary Care Provider [phone] Jean Mak MD Unavailable [phone] Encounter Details Date Type Department Care Team (Late st Contact Info) Description 10/06/2024 Results Follow-Up [facility] [address] , [address] [place] [phone] Danny Coon MD 2195 [facility] 125 [place] [address] Social History Tobacco Use Types [...] Upcoming Encounters Date Type Department Care Team ([facility] st Contact Info) Description 01/31/2025 12:15 PM EST Appointment [facility] Nuclear Medicine 800 [place] [address] 01/31/2025 2:30 PM EST Appointment [facility] Nuclear Medicine 800 [place] [address] 03/10/2025 8:00 AM EST Appointment [facility] G Radiology [address] [place] [address] 03/10/2025 10:50 AM EST Clinical Support [facility] [address] [place] [phone] 03/10/2025 11:00 AM EST Office Visit [facility] 800 [place] [address] Edison Skaggs MD 800 [place] [address] 06/29/2025 12:30 PM EDT Clinical Support [facility] [address] [place] [phone] 06/29/2025 1:00 PM EDT Office Visit [facility] [address] [place] [phone] Danny Coon MD [address] [place] [phone] documented as of this encounter Visit [...] documented as of this encounter Care Teams Family Dentist Relationship Specialty Start Date End Date Sergey Oh MD PCP - General 11/13/21 Jean Mak MD 800 [facility] Cancer [address] [address] Surgeon Otolaryngology 11/21/21 documented as of this encounter
--- OUTSIDE RECORDS SUMMARY | 2025-01-21 09:29 | XMS_ITS | Encounter Summary ---
Author Organization Healthcare Address [address] [place] [address] Care Team Providers Care Gyroscopic Engineering Technician Name Role Phone Pcp, No Primary Care Provider Sergey Oswald MD Primary Care Provider [phone] Jean Mak MD Unavailable [phone] Encounter Details Date Type Department Care Team (Late Contact Info) Description 07/05/2020 Orders Only External Location [address] [place] [address] Provider, External Social History Tobacco Use Types [...] EST Appointment [facility] Nuclear Medicine 800 [place] [phone] 01/31/2025 2:30 PM EST Appointment [facility] Nuclear Medicine 800 [place] [address] 03/10/2025 8:00 AM EST Appointment [facility] G Radiology [address] [place] [phone] 03/10/2025 10:50 AM EST Clinical Support [facility] 800 [place] [address] 03/10/2025 11:00 AM EST Office Visit [facility] [address] [place] [phone] Edison Skaggs MD 800 [place] [address] 06/29/2025 12:30 PM EDT Clinical Support [facility] [address] [address] 06/29/2025 1:00 PM EDT Office Visit [facility] [address] [phone] Danny Coon MD [address] [phone] documented as of this encounter Procedures Procedure [...] on filedocumented in this encounter Care Teams Gyroscopic Engineering Technician Relationship Specialty Start Date End Date Pcp, No 800 [place] [address] PCP - General Family Medicine 03/31/21 11/12/21 Sergey Oh MD [address] [place] [address] PCP - General 11/13/21 Jean Mak MD [address] [place] [address] [facility] [address] [place] [address] Surgeon Otolaryngology 11/21/21 documented as of this encounter
--- OUTSIDE RECORDS SUMMARY | 2025-01-21 09:29 | XMS_ITS | Encounter Summary ---
Author Organization Healthcare Address [address] [place] [address] Care Team Providers Care Tank Crewmember Name Role Phone Pcp, No Primary Care Provider Sergey Oswald MD Primary Care Provider [phone] Jean Mak MD Unavailable [phone] Encounter Details Date Type Department Care Team (Late st Contact Info) Description 09/04/2021 Orders Only External Location 800 [place] [address] Cristian Griffith MD [address] [place] [address] Social History Tobacco Use Types Packs/Day Years [...] EST Appointment [facility] Nuclear Medicine [address] [place] [phone] 01/31/2025 2:30 PM EST Appointment [facility] Nuclear Medicine [address] [place] [address] 03/10/2025 8:00 AM EST Appointment [facility] G Radiology [address] [place] [address] 03/10/2025 10:50 AM EST Clinical Support [facility] [address] [place] [address] 03/10/2025 11:00 AM EST Office Visit [facility] [address] [place] [phone] Edison Skaggs MD 800 [place], [place] [phone] 06/29/2025 12:30 PM EDT Clinical Support [facility] [address] [phone] 06/29/2025 1:00 PM EDT Office Visit [facility] [address] [phone] Danny Coon MD [address] [address] documented as of this encounter [...] on filedocumented in this encounter Care Teams Tank Crewmember Relationship Specialty Start Date End Date Pcp, No 800 [place] [address] PCP - General Family Medicine 03/31/21 11/12/21 Sergey Oh MD [address] [place] [phone] PCP - General 11/13/21 Jean Mak MD 800 [facility] [address] [place] [phone] Surgeon Otolaryngology 11/21/21 documented as of this encounter
--- OUTSIDE RECORDS SUMMARY | 2025-01-21 09:30 | XMS_ITS | Clinical Summary ---
Author Organization [facility] Address [address] [place] [address] Care Team Providers Care Rehabilitation Assistant Name Role Phone Melia Knox Primary Care Provider [phone] Medications OTHER - BILL ONLY Ac tive [...] 2024 Influenza Vaccination (#1) 2024 Care Teams Rehabilitation Assistant Relationship Specialty Start Date End Date Melia Knox [facility] [place] [address] PCP - General Family Medicine 09/29/17
--- OUTSIDE RECORDS SUMMARY | 2025-01-21 09:30 | XMS_ITS | Encounter Summary ---
Author Organization Healthcare Address [address] [place] [address] Care Team Providers Care Manager Of Broadcast Content Name Role Phone Sergey Oh MD Primary Care Provider [phone] Jean Mak MD Unavailable [phone] Encounter Details Date Type Department Care Team (Late st Contact Info) Description 10/21/2023 Orders Only External Location [address] [place] [address] Provider, External Social History Tobacco Use Types [...] ([facility] st Contact Info) Description 01/31/2025 12:15 PM EST Appointment [facility] H Nuclear Medicine [address] [place] [address] 01/31/2025 2:30 PM EST Appointment [facility] Nuclear Medicine [address] [place] [address] 03/10/2025 8:00 AM EST Appointment [facility] G Radiology [address] [place] [address] 03/10/2025 10:50 AM EST Clinical Support [facility] [address] [place] [address] 03/10/2025 11:00 AM EST Office Visit [facility] [address] [place] [phone] Edison Skaggs MD 800 [place] [address] 06/29/2025 12:30 PM EDT Clinical Support [facility] [address] [place] [phone] 06/29/2025 1:00 PM EDT Office Visit [facility] [address] [place] [phone] Danny Coon MD [address] [phone] documented as of this encounter Procedures Procedure [...] as of this encounter Care Teams Manager Of Broadcast Content Relationship Specialty Start Date End Date Sergey Oh MD PCP - General 11/13/21 Jean Mak MD 800 [facility] Cancer [address] [address] Surgeon Otolaryngology 11/21/21 documented as of this encounter
--- OUTSIDE RECORDS SUMMARY | 2025-01-21 09:30 | XMS_ITS | Encounter Summary ---
Author Organization Healthcare Address [address] [place] [address] Care Team Providers Care Entry Clerk Name Role Phone Pcp, No Primary Care Provider Sergey Oswald MD Primary Care Provider [phone] Jean Mak MD Unavailable [phone] Encounter Details Date Type Department Care Team (Late Contact Info) Description 01/23/2020 Orders Only External Location 800 [place] [address] Provider, External Social History Tobacco Use Types [...] EST Appointment [facility] Nuclear Medicine 800 [place] [address] 01/31/2025 2:30 PM EST Appointment [facility] Nuclear Medicine 800 [place] [address] 03/10/2025 8:00 AM EST Appointment [facility] Radiology [address] [place] [address] 03/10/2025 10:50 AM EST Clinical Support [facility] [address] [place] [address] 03/10/2025 11:00 AM EST Office Visit [facility] [address] [place] [address] Edison Skaggs MD 800 [place] [address] 06/29/2025 12:30 PM EDT Clinical Support [facility] [address] [address] 06/29/2025 1:00 PM EDT Office Visit [facility] [address] [phone] Danny Coon MD 2195 [facility] [address] [place] [phone] documented as of this encounter Procedures Procedure [...] on filedocumented in this encounter Care Teams Entry Clerk Relationship Specialty Start Date End Date Pcp, No 800 [place] [address] PCP - General Family Medicine 03/31/21 11/12/21 Sergey Oh MD [address] [place] [address] PCP - General 11/13/21 Jean Mak MD [address] [place] [address] [facility] [address] [place] [address] Surgeon Otolaryngology 11/21/21 documented as of this encounter
--- OUTSIDE RECORDS SUMMARY | 2025-01-21 09:30 | XMS_ITS | Encounter Summary ---
Author Organization Healthcare Address [address] [place] [address] Care Team Providers Care Registered Nurse Maternity Name Role Phone Pcp, No Primary Care Provider Sergey Oswald MD Primary Care Provider [phone] Jean Mak MD Unavailable [phone] Encounter Details Date Type Department Care Team (Late Contact Info) Description 11/19/2019 Orders Only External Location 800 [place] [phone] Provider, External Social History Tobacco Use Types [...] EST Appointment [facility] Nuclear Medicine [address] [place] [phone] 01/31/2025 2:30 PM EST Appointment [facility] Nuclear Medicine 800 [place] [address] 03/10/2025 8:00 AM EST Appointment [facility] Radiology [address] [place] [address] 03/10/2025 10:50 AM EST Clinical Support [facility] [address] [place] [address] 03/10/2025 11:00 AM EST Office Visit [facility] [address] [place] [phone] Edison Skaggs MD 800 [place] [address] 06/29/2025 12:30 PM EDT Clinical Support [facility] [address] [phone] 06/29/2025 1:00 PM EDT Office Visit [facility] [address] [phone] Danny Coon MD 2195 [facility] 125 [place] [phone] documented as of this encounter Procedures Procedure [...] on filedocumented in this encounter Care Teams Registered Nurse Maternity Relationship Specialty Start Date End Date Pcp, No [address] [place] [address] PCP - General Family Medicine 03/31/21 11/12/21 Sergey Oh MD [address] [place] [address] PCP - General 11/13/21 Jean Mak MD [address] [place] [address] [facility] [address] [place] [address] Surgeon Otolaryngology 11/21/21 documented as of this encounter
--- OUTSIDE RECORDS SUMMARY | 2025-01-21 09:30 | XMS_ITS | Encounter Summary ---
Author Organization Healthcare Address [address] [place] [address] Care Team Providers Care Knife Setter Name Role Phone Pcp, No Primary Care Provider Sergey Oswald MD Primary Care Provider [phone] Jean Mak MD Unavailable [phone] Encounter Details Date Type Department Care Team (Late st Contact Info) Description 09/20/2021 Orders Only External Location [address] [place] [address] Cristian Griffith MD [address] [place] [address] Social History Tobacco Use Types Packs/Day Years [...] EST Appointment [facility] H Nuclear Medicine [address] [place] [address] 01/31/2025 2:30 PM EST Appointment [facility] H Nuclear Medicine [address] [place] [address] 03/10/2025 8:00 AM EST Appointment [facility] G Radiology [address] [place] [address] 03/10/2025 10:50 AM EST Clinical Support [facility] [address] [place] [address] 03/10/2025 11:00 AM EST Office Visit [facility] [address] [place] [address] Edison Skaggs MD 800 [place], [place] [phone] 06/29/2025 12:30 PM EDT Clinical Support [facility] [address] [phone] 06/29/2025 1:00 PM EDT Office Visit [facility] [address] [phone] Danny Coon MD [address] [address] documented as of this encounter [...] on filedocumented in this encounter Care Teams Knife Setter Relationship Specialty Start Date End Date Pcp, No 800 [place] [address] PCP - General Family Medicine 03/31/21 11/12/21 Sergey Oh MD [address] [place] [address] PCP - General 11/13/21 Jean Mak MD 800 [facility] [address] [place] [phone] Surgeon Otolaryngology 11/21/21 documented as of this encounter
--- OUTSIDE RECORDS SUMMARY | 2025-01-21 09:30 | XMS_ITS | Encounter Summary ---
Author Organization Healthcare Address [address] [place] [address] Care Team Providers Care Assistant County Engineer Name Role Phone Pcp, No Primary Care Provider Sergey Oswald MD Primary Care Provider [phone] Jean Mak MD Unavailable [phone] Encounter Details Date Type Department Care Team (Late Contact Info) Description 11/24/2019 Orders Only External Location 800 [place] [address] Provider, External Social History Tobacco Use Types [...] EST Appointment [facility] H Nuclear Medicine [address] [place] [address] 01/31/2025 2:30 PM EST Appointment [facility] H Nuclear Medicine 800 [place] [address] 03/10/2025 8:00 AM EST Appointment PAV Radiology [address] [place] [phone] 03/10/2025 10:50 AM EST Clinical Support [facility] [address] [place] [address] 03/10/2025 11:00 AM EST Office Visit [facility] [address] [place] [phone] Edison Skaggs MD 800 [place] [address] 06/29/2025 12:30 PM EDT Clinical Support [facility] [address] [address] 06/29/2025 1:00 PM EDT Office Visit [facility] [address] [phone] Danny Coon MD 2195 [facility] 125 [place] [address] documented as of this encounter Procedures Procedure [...] on filedocumented in this encounter Care Teams Assistant County Engineer Relationship Specialty Start Date End Date Pcp, No 800 [place] [address] PCP - General Family Medicine 03/31/21 11/12/21 Sergey Oh MD [address] [place] [address] PCP - General 11/13/21 Jean Mak MD [address] [place] [address] [facility] [address]nd [place] [address] Surgeon Otolaryngology 11/21/21 documented as of this encounter
--- OUTSIDE RECORDS SUMMARY | 2025-01-21 09:30 | XMS_ITS | Encounter Summary ---
Author Organization Healthcare Address [address] [place] [address] Care Team Providers Care Harness Rigger Name Role Phone Pcp, No Primary Care Provider Sergey Oswald MD Primary Care Provider [phone] Jean Mak MD Unavailable [phone] Encounter Details Date Type Department Care Team (Late Contact Info) Description 11/19/2019 Orders Only External Location 800 [place] [address] Provider, External Social History Tobacco Use Types [...] EST Appointment [facility] Nuclear Medicine [address] [place] [address] 01/31/2025 2:30 PM EST Appointment [facility] H Nuclear Medicine 800 [place] [address] 03/10/2025 8:00 AM EST Appointment P[facility] Radiology [address] [place] [phone] 03/10/2025 10:50 AM EST Clinical Support [facility] [address] [place] [address] 03/10/2025 11:00 AM EST Office Visit [facility] [address] [place] [phone] Edison Skaggs MD 800 [place] [address] 06/29/2025 12:30 PM EDT Clinical Support [facility] [address] [phone] 06/29/2025 1:00 PM EDT Office Visit [facility] [address] [phone] Danny Coon MD 2195 [facility] 125 [place] [address] documented as of this encounter Procedures Procedure [...] on filedocumented in this encounter Care Teams Harness Rigger Relationship Specialty Start Date End Date Pcp, No [address] [place] [address] PCP - General Family Medicine 03/31/21 11/12/21 Sergey Oh MD [address] [place] [address] PCP - General 11/13/21 Jean Mak MD [address] [place] [address] [facility] [address]nd [place] [address] Surgeon Otolaryngology 11/21/21 documented as of this encounter
[2025-01-21 10:21] LABS: Hepatitis B Surface Antigen Confirm. indicated (Negative)
== END 2025-01-19 23:59 ==
LOC: LAB.DROPOF 01-21 09:08
PROVIDERS: PCP Family Medicine; Visit Provider Family Medicine
DX: C73 Malignant neoplasm of thyroid gland (principal); Z11.59 Encounter for screening for other viral diseases
CPT/HCPCS: 80053; 86803; 87340; 87389

== ENCOUNTER 2025-01-25 08:52 | Outpatient (CLI) | payer OTHER, SELFPAY ==
--- OUTSIDE RECORDS SUMMARY | 2024-12-23 11:00 | XMS_ITS | Encounter Summary ---
Author Organization Healthcare Address [address] [place] [address] Care Team Providers Care Atlassian Administrator Name Role Phone Sergey Oh MD Primary Care Provider [phone] Jean Mak MD Unavailable [phone] Encounter Details Date Type Department Care Team (Latest Contact Info) Description 12/23/2024 11:00 AM EDT Clinical Support [facility] Multidisciplinary Oncology Clinic [address] [place] [phone] History of colon cancer, stage II Social History Tobacco Use Types Packs/Day Years Used Date Smoking Tobacco: Every Day Cigarettes 1 32.4 Started: 03/31/1994 Passive Smoke Exposure: Current Smokeless Tobacco: Never Comments:Vaping Alcohol Use Standard Drinks/Week Comments Yes 2 (1 standard drink = 0.6 oz pur e alcohol) Occasional PHQ-2 Answer Date Recorded Patient Health Questionnaire-2 Score 0 12/23/2024 PHQ-9 Answer Date Recorded Patient Health Questionnaire-9 [...] as of this encounter Miscellaneous Notes * Clinician Note - Carmita Villalobos RN - 12/23/2024 11:00 AM EDT Port labs documented in this encounter Plan of Treatment Upcoming Encounters Date Type Department Care Team (Late st Contact Info) Description 01/31/2025 12:15 PM EST Appointment [facility] [address] [place] [phone] 01/31/2025 2:30 PM EST Appointment [facility] [address] [place] [phone] 03/10/2025 8:00 AM EST Appointment [facility] [address] [place] [phone] 03/10/2025 10:50 AM EST Clinical Support [facility] [address] [place] [phone] 03/10/2025 11:00 AM EST Office Visit [facility] [address] [place] [phone] Edison Skaggs MD [address] [place] [address] 06/29/2025 12:30 PM EDT Clinical Support [facility] [address] [place] [phone] 06/29/2025 1:00 PM EDT Office Visit [facility] [address] [place] [phone] Danny Coon MD [address] [place] [phone] documented as of this encounter Procedures Procedure Name Priority Date/Time Associated Diagnosis Comments CEA, SERUM Routine 12/23/2024 10:57 AM EDT History of colon cancer, stage II documented in this encounter Results * (ABNORMAL) CEA (12/23/2024 10:57 AM EDT) CEA, Serum 16.6(H) <4.0 ng/mL 12/23/2024 12:25 PM EDT [facility] Blood Venous blood specimen / Unknown (Port) Long-term Catheter / Unknown 12/23/2024 10:57 AM EDT 12/23/2024 11:44 AM EDT Narrative [facility] - 12/23/2024 12:25 PM EDT Normal range for smokers: < 5.5 ng/ml Normal range for non-smokers: <=4.0 ng/ml Performed by [employer] electrochemiluminescent immunoassay. Results obtained with different test methods or kits cannot be used interchangeably. us Broderick Taylor MD LAB BLOOD ORDERABLES Final R esult [facility] [address] [place] [address] documented in this encounter Visit Diagnoses Diagnosis History of colon cancer, stage II Personal history of malignant neoplasm of large intestine documented in this encounter Additional Health Concerns Assessment Noted Time PHQ-9 Depression Total Score: 0 06/22/19 1:53 PM EDT A fall risk assessment has been complete d for the patient 12/23/2024 11:47 AM EDT A Body Mass Index follow-up plan has been documented for the patient 06/23/2024 9:55 AM EDT documented as of this encounter Care Teams Atlassian Administrator Relationship Specialty Start Date End Date Sergey Oh MD PCP - General 11/13/21 Jean Mak MD [address] [facility] [address] [place] [phone] Surgeon Otolaryngology 11/21/21 documented as of this encounter
--- OUTSIDE RECORDS SUMMARY | 2024-12-23 11:00 | XMS_ITS | Encounter Summary ---
Author Organization [facility] Address 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 Name Role Phone Sergey Oh MD Primary Care Provider [phone] Jean Mak MD Unavailable [phone] Reason for Referral * Imaging (Routine) - Pending Review Specialty Diagnoses / Procedures Referred By Contac t Referred To Contact Radiology Diagnoses History of colon cancer, stage II Procedures CT Chest w IV Contrast Franchesca Delacruz MD [address] [address] Phone: tel: fax: Referral ID Status Reason Start Date Expiration Date V isits Requested Visits Authorized [id number] Pending Review 12/23/2024 06/24/2026 1 1 * Imaging (Routine) - Pending Review Specialty Diagnoses / Procedures Referred By Contac t Referred To Contact Radiology Diagnoses History of colon cancer, stage II Procedures CT Abdomen Pelvis w IV Contrast Franchesca Delacruz MD [address] [address] Phone: tel: fax: Referral ID Status Reason Start Date Expiration Date V isits Requested Visits Authorized [id number] Pending Review 12/23/2024 06/24/2026 1 1 * Imaging (Routine) - Closed Specialty Diagnoses / Procedures Referred By Contac t Referred To Contact Radiology Diagnoses History of colon cancer, stage II Procedures CT Chest w IV Contrast Broderick Taylor MD [address] [place] [phone] Phone: tel: fax: Referral ID Status Reason Start Date Expiration Date Visits Re quested Visits Authorized [id number] Closed 12/22/2024 06/23/2026 1 1 * Imaging (Routine) - Closed Specialty Diagnoses / Procedures Referred By Dhruv kebede Referred To Contact Radiology Diagnoses History of colon cancer, stage II Procedures CT Abdomen Pelvis w IV Contrast Broderick Taylor MD [address] [place] [phone] Phone: tel: fax: Referral ID Status Reason Start Date Expiration Date Visits Re quested Visits Authorized [id number] Closed 12/22/2024 06/23/2026 1 1 Reason for Visit * Reason Comments 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 Multidisciplinary Oncology Clinic [address] [place] [phone] Edison Skaggs MD [address] [place] [phone] History of colon cancer, stage II (Primary Dx) Social History Tobacco Use Types Packs/Day Years [...] Sign Reading Time Taken Comments Blood Pressure 131/90 12/23/2024 11:38 AM EDT Pulse 85 12/23/2024 11:38 AM EDT Temperature 36.7 C (98 F) 12/23/2024 11:38 AM EDT Respiratory Rate 16 12/23/2024 11:38 AM EDT Oxygen Saturation 99% 12/23/2024 11:38 AM EDT Inhaled Oxygen Concentration - - Weight 70 kg (154 lb 5.2 oz) 12/23/2024 11:38 AM EDT Height 157.5 cm (5' 2.01 ) 12/23/2024 11:38 AM E DT Body Mass Index 28.22 12/23/2024 11:38 AM EDT documented in this encounter Functional Status * Over the past 2 weeks, how often have you been bothered by any of the following problems? Question Answer Date of Assessment Author Little interest or pleasure in doing things Not at all 12/23/2024 11:46 AM EDT Cassie Rebollar Feeling down, depressed, or hopeless Not at all 12/23/2024 11:46 AM EDT Cassie Rebollar Patient Health Questionnaire -2 Score 0 12/23/2024 11:46 AM EDT Cassie Rebollar * Question Answer Date of Assessment Author Feeling bad about yourself - or that you are a failure or have let yourself or your family down Not at all 12/23/2024 11:46 AM EDT Cassie Felton Thoughts that you would be better off or hurting yourself in some way Not at all 12/23/2024 11:46 AM EDT Cassie Rebollar * How difficult have these problems made it for you to do your work, take care of things at home, or get along with other people? Answer Date of Assessment Author Not difficult at all 12/23/2024 11:46 AM EDT Cassie Felton * How difficult have these problems made it for you to do your work, take care of things at home, or get along with other people? Answer Date of Assessment Author Not difficult at all 12/23/2024 11:46 AM HORACIOT Cassie Felton documented as of this encounter Miscellaneous Notes * Progress Notes - Edison Skaggs MD - 12/23/2024 11:00 AM EDT General Medical Oncology Clinic Note: [...] good, bowel mvmnts normal. Now new concerns. She denies any new symptoms , her CEA continues to be slightly up but below 20 and thus no concerning Per the NCCN guidelines will continue follow up with CT scan every 3 months for the first two years She had surgery about 1 year ago Also, will schedule her for follow up colonoscopy Review of systems: A 14 point review [...] levothyroxine 125 mcg daily with a goal TSH of around 0.1. 12/06/23: Patient presented to her local ER in [facility] with 2-3 weeks of progressive abdominal pain [...] cystic neck mass in the right neck. [facility] Path: follicular cells in a background of [...] packs/day: 1.00 Average packs/day: 1 pack/day for 32.3 years (32.3 ttl pk-yrs) Types: Cigarettes Start date: 03/31/1994 [...] Reviewed and updated in this Epic encounter There were no vitals filed for this visit. 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 No clear evidence of metastatic disease on CT scan of the chest abdomen and pelvis, though she had several small subcentimeter pulmonary nodules, some of which have been stable for quite some time and has been serially monitored given her smoking and thyroid cancer history, the of the smaller lesions were reported to be new. The largest lesion is 7 mm and cavitary in nature,personal review of prior CT scans of the chest reveals that this lesion was there back in October/2023 and roughly 6 mm in size. These lesions are too small to further characterize reliably via PET scan. We discussed briefly with thoracic surgery who noted that none of them are at present safely amenable to biopsy or wedge resection. We will opt to monitor these very closely for the time being andwe will still consider her disease localized. It was also noteworthy that her CT scan in November/2023 did note an area of colonic thickening and inflammatory changes in the mid transverse colon that was not visualized on intraoperative colonoscopy due to difficulty passing inflammatory adhesions in the left lower quadrant of the abdomen. Overall, Ms. Finnegan has stage II A disease. We discussed that the benefit of adjuvant chemotherapyis unclear in this setting for all comers, however in her particular situation, I believe she is ofparticularly high-risk for disease recurrence given the high-risk [...] treatment in March 2024. She returned today on for follow up. CT CAP will be scheduled ( last one was done on 09/23 and it was not concerning for any recurrence). Will schedule the patient on another CT CAP and will bereferred for follow up colonoscopy ( close to 1 year from her surgical resection) RTC in 3 months 2. Tobacco use - Complicates care currently [...] seen and examined with attending physician, Dr. Taylor, who assisted with formulation of the plan as described. Edison Skaggs MD, PGY5 Hematology and Medical Oncology fellow Pager number : [phone] [facility] HEMATOLOGY/BMT AND CELLULAR THERAPY PROGRAM [address] [place] [phone] Cosigned by Broderick Taylor MD at 12/27/2024 11:39 AM EDT Associated attestation - Broderick Taylor MD - 12/27/2024 11:39 AM EDT I saw and evaluated the patient with the resident/fellow. I discussed the case with the resident/fellow and agree with the findings and plan as documented. * Progress Notes - Broderick Taylor MD - 12/23/2024 11:00 AM EDT error documented in this encounter Plan of Treatment Upcoming Encounters Date Type Department Care Team (Late st Contact Info) Description 01/31/2025 12:15 PM EST Appointment [facility] [address] [place] [phone] 01/31/2025 2:30 PM EST Appointment [facility] [address] [place] [address] 03/10/2025 8:00 AM EST Appointment [facility] [address] [place] [address] 03/10/2025 10:50 AM EST Clinical Support [facility] [address] [place] [phone] 03/10/2025 11:00 AM EST Office Visit [facility] [address] [place] [phone] Edison Skaggs MD [address] [place], [place] [phone] 06/29/2025 12:30 PM EDT Clinical Support [facility] [address] [place] [address], [address] [place] [address] 06/29/2025 1:00 PM EDT Office Visit [facility] [address] [place] [phone] Danny Coon MD [address] [phone] Scheduled Orders Name Type Priority Associated Diagnoses Orde r Schedule CT Abdomen Pelvis w IV Contrast Imaging Routine History of colon cancer, stage II Expected: 03/24/2025 (Approximate), Expires: 06/26/2026 CT Chest w IV Contrast Imaging Routine History of colon cancer, stage II Expected: 03/24/2025 (Approximate), Expires: 06/26/2026 documented as of this encounter Results * CT Chest w IV Contrast (01/11/2025 3:08 PM EDT) Anatomical Region Laterality Modality Chest Computed Tomogra phy Impressions 01/11/2025 4:15 PM EDT Chest: Stable to decreased conspicuity of the multiple bilateral pulmonary nodules. Abdomen/Pelvis: Increased retrocrural and retroperitoneal adenopathy. Recommend close attention on follow-up. CRITICAL RESULT: No. COMMUNICATION: Per this written report. Drafted by Lori Richardson MD on 01/11/2025 3:49 PM Final report signed by Lori Richardson MD on 01/11/2025 4:15 PM Narrative 01/11/2025 4:15 PM EDT CLINICAL INDICATION: Colon cancer, stage II/III, monitor TECHNIQUE: Multiple axial CT images were obtained from thoracic inlet through pubic symphysis following administration of IV contrast, Omnipaque 300, 100 mL. Reformatted images in the coronal and sagittal planes were generated from the axial data set to facilitate diagnostic accuracy. Total DLP (Dose-Length Product): 576.01 mGy.cm (accession [id number]), 576.01 mGy.cm (accession [id number]) Please note: The reported value represents the total of one or more individual components during the CT acquisition on this date and at this time, and as such, the same value may appear in more than one CT report depending on the interpreting/reporting physicians. COMPARISON: CT chest/abdomen/pelvis from 09/23/2024 FINDINGS: Chest: Lymph Nodes and Mediastinum: A right paratracheal lymph node is stable, measuring 10 mm (series 4 image 152). A right hilar lymph node is stable, measuring 8 mm (series 4 image 173). Increased retrocrural adenopathy, described below. Status post thyroidectomy. Cardiovascular: The heart is normal in caliber. Thoracic great vessels are patent. A right approach port terminates in the superior vena cava. Lungs and Pleura: Central airways are patent. Emphysematous change is most prominent in the upper lobes. Stable to decreased conspicuity of the multiple bilateral pulmonary nodules. For example a previously noted right upper lobe 6 mm pulmonary nodule is not conspicuous. A left lower lobe nodule measures 5 mm (previously 6 mm, series 3 image 53). Right lower lobe nodules now measure 3 mm (previously 4 to 5 mm, series 3 image 65 and 62). A right lower lobe nodule measures 5 mm (previously 6 mm, series 3 image 68). Additional nodules are stable to less conspicuous (for example series 3 image 76 and 71). No pleural effusions or suspicious thickening. Musculoskeletal and Body Wall: No clearly aggressive bone lesions. Abdomen/Pelvis: Solid Abdominal Organs: Unchanged contour deformity along the surface of the right hemiliver, compatible with a prior wedge resection. No new hepatic lesions. Gallbladder is surgically absent. No intrahepatic or extrahepatic biliary ductal dilatation. Adrenal glands are unremarkable. Left renal cyst is stable. No suspicious renal mass. No hydronephrosis. Pancreatic recommend homogeneous. No pancreatic ductal dilatation. The spleen is nonenlarged. GI Tract/Mesentery/Peritoneum: Stomach is unremarkable. Postoperative change associated with prior sigmoidectomy and colorectal anastomosis. No evidence of anastomotic complication. Small and large bowel maintain normal caliber and contour. No bowel obstruction. Appendix is unremarkable. No suspicious mesenteric or peritoneal findings. Pelvic Viscera: Urinary bladder is unremarkable. Uterus and adnexa are unremarkable. No pelvic mass. Lymph Nodes/Vasculature: Increased retrocrural adenopathy, with an index node measuring 1.8 cm (previously 1.0 cm, series 3 image 40). Increased retroperitoneal adenopathy. For example left para-aortic lymph notes measure up to 1.6 cm (previously subcentimeter, series 3 image 118 and 100). A right common iliac lymph node measures 9 mm (not previously measurable, series 3 image 151). Aorta and IVC maintain normal caliber and contour. Portosplenic confluence is patent. Free Fluid: No ascites. Musculoskeletal and Body Wall: Small fat-containing ventral abdominal hernia. No clearly aggressive osseous lesions. Procedure Note Lori Richardson MD - 01/11/2025 CLINICAL INDICATION: Colon cancer, stage II/III, monitor TECHNIQUE: Multiple axial CT images were obtained from thoracic inlet through pubicsymphysis following administration of IV contrast, Omnipaque 300, 100 mL.Reformatted images in the coronal and sagittal planes were generated fromthe axial data set to facilitate diagnostic accuracy. Total DLP (Dose-Length Product): 576.01 mGy.cm (accession [id number]),576.01 mGy.cm (accession [id number]) Please note: The reported valuerepresents the total of one or more individual components during the CTacquisition on this date and at this time, and as such, the same value mayappear in more than one CT report depending on the interpreting/reportingphysicians. COMPARISON: CT chest/abdomen/pelvis from 09/23/2024 FINDINGS: Chest: Lymph Nodes and Mediastinum: A right paratracheal lymph node is stable,measuring 10 mm (series 4 image 152). A right hilar lymph node is stable,measuring 8 mm (series 4 image 173). Increased retrocrural adenopathy,described below. Status post thyroidectomy. Cardiovascular: The heart is normal in caliber. Thoracic great vessels arepatent. A right approach port terminates in the superior vena cava. Lungs and Pleura: Central airways are patent. Emphysematous change is mostprominent in the upper lobes. Stable to decreased conspicuity of themultiple bilateral pulmonary nodules. For example a previously noted rightupper lobe 6 mm pulmonary nodule is not conspicuous. A left lower lobenodule measures 5 mm (previously 6 mm, series 3 image 53). Right lowerlobe nodules now measure 3 mm (previously 4 to 5 mm, series 3 image 65 and62). A right lower lobe nodule measures 5 mm (previously 6 mm, series 3image 68). Additional nodules are stable to less conspicuous (for exampleseries 3 image 76 and 71). No pleural effusions or suspiciousthickening. Musculoskeletal and Body Wall: No clearly aggressive bone lesions. Abdomen/Pelvis: Solid Abdominal Organs: Unchanged contour deformity along the surface ofthe right hemiliver, compatible with a prior wedge resection. No newhepatic lesions. Gallbladder is surgically absent. No intrahepatic orextrahepatic biliary ductal dilatation. Adrenal glands are unremarkable.Left renal cyst is stable. No suspicious renal mass. No hydronephrosis.Pancreatic recommend homogeneous. No pancreatic ductal dilatation. Thespleen is nonenlarged. GI Tract/Mesentery/Peritoneum: Stomach is unremarkable. Postoperativechange associated with prior sigmoidectomy and colorectal anastomosis. Noevidence of anastomotic complication. Small and large bowel maintainnormal caliber and contour. No bowel obstruction. Appendix isunremarkable. No suspicious mesenteric or peritoneal findings. Pelvic Viscera: Urinary bladder is unremarkable. Uterus and adnexa areunremarkable. No pelvic mass. Lymph Nodes/Vasculature: Increased retrocrural adenopathy, with an indexnode measuring 1.8 cm (previously 1.0 cm, series 3 image 40). Increasedretroperitoneal adenopathy. For example left para-aortic lymph notesmeasure up to 1.6 cm (previously subcentimeter, series 3 image 118 wal701). A right common iliac lymph node measures 9 mm (not previouslymeasurable, series 3 image 151). Aorta and IVC maintain normal caliber andcontour. Portosplenic confluence is patent. Free Fluid: No ascites. Musculoskeletal and Body Wall: Small fat-containing ventral abdominalhernia. No clearly aggressive osseous lesions. IMPRESSION: Chest: Stable to decreased conspicuity of the multiple bilateral pulmonarynodules. Abdomen/Pelvis: Increased retrocrural and retroperitoneal adenopathy. Recommend closeattention on follow-up. CRITICAL RESULT: No. COMMUNICATION: Per this written report. Drafted by Lori Richardson MD on 01/11/2025 3:49 PM Final report signed by Lori Richardson MD on 01/11/2025 4:15 PM Broderick Taylor MD IMG CT PROCEDURES Final Resu lt * CT Abdomen Pelvis w IV Contrast (01/11/2025 3:08 PM EDT) Anatomical Region Laterality Modality Abdomen, Pelvis Computed Tomogra phy Impressions 01/11/2025 4:15 PM EDT Chest: Stable to decreased conspicuity of the multiple bilateral pulmonary nodules. Abdomen/Pelvis: Increased retrocrural and retroperitoneal adenopathy. Recommend close attention on follow-up. CRITICAL RESULT: No. COMMUNICATION: Per this written report. Drafted by Lori Richardson MD on 01/11/2025 3:49 PM Final report signed by Lori Richardson MD on 01/11/2025 4:15 PM Narrative 01/11/2025 4:15 PM EDT CLINICAL INDICATION: Colon cancer, stage II/III, monitor TECHNIQUE: Multiple axial CT images were obtained from thoracic inlet through pubic symphysis following administration of IV contrast, Omnipaque 300, 100 mL. Reformatted images in the coronal and sagittal planes were generated from the axial data set to facilitate diagnostic accuracy. Total DLP (Dose-Length Product): 576.01 mGy.cm (accession [id number]), 576.01 mGy.cm (accession [id number]) Please note: The reported value represents the total of one or more individual components during the CT acquisition on this date and at this time, and as such, the same value may appear in more than one CT report depending on the interpreting/reporting physicians. COMPARISON: CT chest/abdomen/pelvis from 09/23/2024 FINDINGS: Chest: Lymph Nodes and Mediastinum: A right paratracheal lymph node is stable, measuring 10 mm (series 4 image 152). A right hilar lymph node is stable, measuring 8 mm (series 4 image 173). Increased retrocrural adenopathy, described below. Status post thyroidectomy. Cardiovascular: The heart is normal in caliber. Thoracic great vessels are patent. A right approach port terminates in the superior vena cava. Lungs and Pleura: Central airways are patent. Emphysematous change is most prominent in the upper lobes. Stable to decreased conspicuity of the multiple bilateral pulmonary nodules. For example a previously noted right upper lobe 6 mm pulmonary nodule is not conspicuous. A left lower lobe nodule measures 5 mm (previously 6 mm, series 3 image 53). Right lower lobe nodules now measure 3 mm (previously 4 to 5 mm, series 3 image 65 and 62). A right lower lobe nodule measures 5 mm (previously 6 mm, series 3 image 68). Additional nodules are stable to less conspicuous (for example series 3 image 76 and 71). No pleural effusions or suspicious thickening. Musculoskeletal and Body Wall: No clearly aggressive bone lesions. Abdomen/Pelvis: Solid Abdominal Organs: Unchanged contour deformity along the surface of the right hemiliver, compatible with a prior wedge resection. No new hepatic lesions. Gallbladder is surgically absent. No intrahepatic or extrahepatic biliary ductal dilatation. Adrenal glands are unremarkable. Left renal cyst is stable. No suspicious renal mass. No hydronephrosis. Pancreatic recommend homogeneous. No pancreatic ductal dilatation. The spleen is nonenlarged. GI Tract/Mesentery/Peritoneum: Stomach is unremarkable. Postoperative change associated with prior sigmoidectomy and colorectal anastomosis. No evidence of anastomotic complication. Small and large bowel maintain normal caliber and contour. No bowel obstruction. Appendix is unremarkable. No suspicious mesenteric or peritoneal findings. Pelvic Viscera: Urinary bladder is unremarkable. Uterus and adnexa are unremarkable. No pelvic mass. Lymph Nodes/Vasculature: Increased retrocrural adenopathy, with an index node measuring 1.8 cm (previously 1.0 cm, series 3 image 40). Increased retroperitoneal adenopathy. For example left para-aortic lymph notes measure up to 1.6 cm (previously subcentimeter, series 3 image 118 and 100). A right common iliac lymph node measures 9 mm (not previously measurable, series 3 image 151). Aorta and IVC maintain normal caliber and contour. Portosplenic confluence is patent. Free Fluid: No ascites. Musculoskeletal and Body Wall: Small fat-containing ventral abdominal hernia. No clearly aggressive osseous lesions. Procedure Note Lori Richardson MD - 01/11/2025 CLINICAL INDICATION: Colon cancer, stage II/III, monitor TECHNIQUE: Multiple axial CT images were obtained from thoracic inlet through pubicsymphysis following administration of IV contrast, Omnipaque 300, 100 mL.Reformatted images in the coronal and sagittal planes were generated fromthe axial data set to facilitate diagnostic accuracy. Total DLP (Dose-Length Product): 576.01 mGy.cm (accession [id number]),576.01 mGy.cm (accession [id number]) Please note: The reported valuerepresents the total of one or more individual components during the CTacquisition on this date and at this time, and as such, the same value mayappear in more than one CT report depending on the interpreting/reportingphysicians. COMPARISON: CT chest/abdomen/pelvis from 09/23/2024 FINDINGS: Chest: Lymph Nodes and Mediastinum: A right paratracheal lymph node is stable,measuring 10 mm (series 4 image 152). A right hilar lymph node is stable,measuring 8 mm (series 4 image 173). Increased retrocrural adenopathy,described below. Status post thyroidectomy. Cardiovascular: The heart is normal in caliber. Thoracic great vessels arepatent. A right approach port terminates in the superior vena cava. Lungs and Pleura: Central airways are patent. Emphysematous change is mostprominent in the upper lobes. Stable to decreased conspicuity of themultiple bilateral pulmonary nodules. For example a previously noted rightupper lobe 6 mm pulmonary nodule is not conspicuous. A left lower lobenodule measures 5 mm (previously 6 mm, series 3 image 53). Right lowerlobe nodules now measure 3 mm (previously 4 to 5 mm, series 3 image 65 and62). A right lower lobe nodule measures 5 mm (previously 6 mm, series 3image 68). Additional nodules are stable to less conspicuous (for exampleseries 3 image 76 and 71). No pleural effusions or suspiciousthickening. Musculoskeletal and Body Wall: No clearly aggressive bone lesions. Abdomen/Pelvis: Solid Abdominal Organs: Unchanged contour deformity along the surface ofthe right hemiliver, compatible with a prior wedge resection. No newhepatic lesions. Gallbladder is surgically absent. No intrahepatic orextrahepatic biliary ductal dilatation. Adrenal glands are unremarkable.Left renal cyst is stable. No suspicious renal mass. No hydronephrosis.Pancreatic recommend homogeneous. No pancreatic ductal dilatation. Thespleen is nonenlarged. GI Tract/Mesentery/Peritoneum: Stomach is unremarkable. Postoperativechange associated with prior sigmoidectomy and colorectal anastomosis. Noevidence of anastomotic complication. Small and large bowel maintainnormal caliber and contour. No bowel obstruction. Appendix isunremarkable. No suspicious mesenteric or peritoneal findings. Pelvic Viscera: Urinary bladder is unremarkable. Uterus and adnexa areunremarkable. No pelvic mass. Lymph Nodes/Vasculature: Increased retrocrural adenopathy, with an indexnode measuring 1.8 cm (previously 1.0 cm, series 3 image 40). Increasedretroperitoneal adenopathy. For example left para-aortic lymph notesmeasure up to 1.6 cm (previously subcentimeter, series 3 image 118 [id number]). A right common iliac lymph node measures 9 mm (not previouslymeasurable, series 3 image 151). Aorta and IVC maintain normal caliber andcontour. Portosplenic confluence is patent. Free Fluid: No ascites. Musculoskeletal and Body Wall: Small fat-containing ventral abdominalhernia. No clearly aggressive osseous lesions. IMPRESSION: Chest: Stable to decreased conspicuity of the multiple bilateral pulmonarynodules. Abdomen/Pelvis: Increased retrocrural and retroperitoneal adenopathy. Recommend closeattention on follow-up. CRITICAL RESULT: No. COMMUNICATION: Per this written report. Drafted by Lori Richardson MD on 01/11/2025 3:49 PM Final report signed by Lori Richardson MD on 01/11/2025 4:15 PM Broderick Taylor MD IM CT PROCEDURES Final Resu lt * (ABNORMAL) CEA (12/23/2024 10:57 AM EDT) CEA, Serum 16.6(H) <4.0 ng/mL 12/23/2024 12:25 PM EDT [facility] Blood Venous blood specimen / Unknown (Port) Long-term Catheter / Unknown 12/23/2024 10:57 AM EDT 12/23/2024 11:44 AM EDT Narrative [facility] - 12/23/2024 12:25 PM EDT Normal range for smokers: < 5.5 ng/ml Normal range for non-smokers: <=4.0 ng/ml Performed by Brendon electrochemiluminescent immunoassay. Results obtained with different test methods or kits cannot be used interchangeably. us Broderick Taylor MD LAB BLOOD ORDERABLES Final R esult [facility] [address] [place] [address] documented in this encounter Visit Diagnoses Diagnosis History of colon cancer, stage II- Primary Personal history of malignant neoplasm of large intestine History of colon cancer, stage II Personal [...] documented as of this encounter Care Teams Ribbon Sweatband Operator Relationship Specialty Start Date End Date Sergey Oh MD PCP - General 11/13/21 Jean Mak MD 800 [facility] [address] [place] [phone] Surgeon Otolaryngology 11/21/21 documented as of this encounter
--- OUTSIDE RECORDS SUMMARY | 2024-12-29 13:30 | XMS_ITS | Encounter Summary ---
Author Organization [facility] Address [address] [place] [address] Care Team Providers Care Sde Name Role Phone Sergey Oh MD Primary Care Provider [phone] Jean Mak MD Unavailable [phone] Encounter Details Date Type Department Care Team (Late st Contact Info) Description 12/29/2024 1:30 PM EDT Office Visit [facility] Head[facility] Respiratory [address] [place] [address] Danny Coon MD 2195 [facility] 125 [place] [address] Malignant neoplasm of thyroid metastatic [...] Thyroid cancer. Thyroid Related Surgeries: Date: 09/09/2019, [facility], [place], [place]. Type: Total Thyroidectomy Node Resection: Left [...] Complications: Hypocalcemia Thyroid Related Surgeries: Date: 12/10/2021, [facility] Node Resection: Right Modified Pathology Description: Pathology reported that one metastatic right level 3 node was seen out of 5 total right neck nodes resected. Pathology Results: Papillary Carcinoma: Typical Type Resection Extent: R0: No residual tumor Complications: Right jugular vein incised and repaired. Radioiodine Therapy Date: 11/19/2019, [facility], [place], [place]. 131I Therapy Dose (MCi): 128.8 mCi [...] Thoracic great vessels are patent. Right chest [id number]-F-Esmq with tip in the lower SVC. Lungs [...] today. Electronically signed by: Danny Coon MD [facility] [address] [place] [address]. [address] [place]. [address] PHONE [phone] FAX: [phone] documented in this encounter Plan of Treatment Upcoming Encounters Date Type Department Care Team (Late st Contact Info) Description 01/31/2025 12:15 PM EST Appointment [facility] Nuclear Medicine [address] [place] [address] 01/31/2025 2:30 PM EST Appointment [facility] Nuclear Medicine [address] [place] [address] 03/10/2025 8:00 AM EST Appointment [facility] Radiology [address] [place] [address] 03/10/2025 10:50 AM EST Clinical Support [facility] Multidisciplinary Oncology Clinic [address] [place] [address] 03/10/2025 11:00 AM EST Office Visit [facility] Multidisciplinary Oncology Clinic [address] [place] [address] Edison Skaggs MD [address] [place] [address] 06/29/2025 12:30 PM EDT Clinical Support [facility] Res[facility] 800 [facility], 2nd [place] [address] 06/29/2025 1:00 PM EDT Office Visit [facility] Head[facility] Neck & Respiratory [address] [facility], [address] [place] [address] Danny Coon MD [address] [facility] [address] [place] [address] Scheduled Orders Name Type Priority Associated Diagnoses [...] - 120 U/L 01/02/2025 1:09 AM EDT [facility] ([facility]) ALKALINE PHOSPHATASE BONE CALC 62(H) 0 - 55 U/L 01/02/2025 1:09 AM EDT [facility] ([facility]) ALKALINE PHOSPHATASE LIVER CALC 101(H) 0 - 94 U/L 01/02/2025 1:09 AM EDT [facility] ([facility]) ALKALINE PHOSPHATASE OTHER CALC 0 U/L 01/02/2025 1:09 AM EDT [facility]) Blood Blood sample taken from central line / Unknown (Port) Long-term Catheter / Unknown 12/29/2024 1:51 PM EDT 12/29/2024 5:19 PM EDT Narrative [facility] ([facility]) - 01/02/2025 1:09 AM EDT INTERPRETIVE INFORMATION: Alk-Phosphatase Liver Calc Bone Specific Alkaline Phosphatase (2337250) and 5'-nucleotidase (4820213) may be useful in identifying disorders of bone and liver, respectively. This test was developed and its performance characteristics determined by [facility]. It has not been cleared or approved by the U.S. Food and Drug Administration. This test was performed in a CLIA-certified laboratory and is intended for clinical purposes. Performed By: [facility] [address] [place] [address] Residential Tech: Jose Gan MD, PhD CLIA Number: [id number] us Danny Coon MD LAB BLOOD ORDERABLES Final Resu lt [facility] ([facility]) [address] [place] [address] documented in this encounter Visit Diagnoses Diagnosis [...] documented as of this encounter Care Teams Sde Relationship Specialty Start Date End Date Sergey Oh MD PCP - General 11/13/21 Jean Mak MD 800 [facility] Cancer [address] [address] Surgeon Otolaryngology 11/21/21 documented as of this encounter
--- OUTSIDE RECORDS SUMMARY | 2025-01-11 14:33 | XMS_ITS | Encounter Summary ---
Author Organization [facility] Address [address] [place] [address] Care Team Providers Care Director Of Student Financial Services Name Role Phone Sergey Oh MD Primary Care Provider [phone] Jean Mak MD Unavailable [phone] Reason for Referral * Imaging (Routine) - Closed Specialty Diagnoses / Procedures Referred By Contac t Referred To Contact Radiology Diagnoses History of colon cancer, stage II Procedures CT Chest w IV Contrast Broderick Taylor MD [address] [address] Phone: tel: fax: Referral ID Status Reason Start Date Expiration Date Visits Re quested Visits Authorized [id number] Closed 12/22/2024 06/23/2026 1 1 * Imaging (Routine) - Closed Specialty Diagnoses / Procedures Referred By Contac t Referred To Contact Radiology Diagnoses History of colon cancer, stage II Procedures CT Abdomen Pelvis w IV Contrast Broderick Taylor MD [address] [address] Phone: tel: fax: Referral ID Status Reason Start Date Expiration Date Visits Re quested Visits Authorized [id number] Closed 12/22/2024 06/23/2026 1 1 Reason for Visit * Imaging (Routine) - Closed Specialty Diagnoses / Procedures Referred By Contsarah t Referred To Contact Radiology Diagnoses History of colon cancer, stage II Procedures CT Chest w IV Contrast Broderick Taylor MD 800 [facility] [place] [facility] [place] [address] Phone: tel: fax: Referral ID Status Reason Start Date Expiration Date Visits Re quested Visits Authorized [id number] Closed 12/22/2024 06/23/2026 1 1 Encounter Details Date Type Department Care Team (Latest Contact Info) Description 01/11/2025 2:33 PM EDT - 01/11/2025 11:59 PM EDT Hospital Encounter [facility] CT [address] [place] [address] History of colon cancer, stage II Discharge Disposition: Home or Self Care Social [...] NEEDED FOR SHORTNESS OF BREATH OR WHEEZING 09/19/2023 cyclobenzaprine (Flexeril) 10 MG tablet Take 1 tablet (10 mg) by mouth 3 (three) times a day if needed for muscle spasms. docusate sodium (Colace) 100 MG capsule take one (1) capsule by mouth once daily 12/03/2024 ergocalciferol 1.25 MG (38241 UT) capsule TAKE ONE (1) CAPSULE BY MOUTH ONE (1) TIME PER WEEK. 12 capsule 3 12/22/2024 HYDROcodone-acet aminophen ([place]) 7.5-325 MG tablet TAKE ONE (1) TABLET THREE (3) TIMES A DAY BY ORAL ROUTE AFTER MEAL(S) FOR 30 DAYS. ipratropium-albu terol (Duo-Neb) 0.5-2.5 mg/3 mL nebulizer solution Inhale 3 mL 4 times a day by nebulization route as directed for 30 days. 06/18/2024 levothyroxine (Synthroid, Levoxyl) 125 MCG tablet Take 1 tablet by mouth daily. 90 tablet 1 01/02/2025 prochlorperazine (Compazine) 10 MG tablet tenofovir disoproxil fumarate (Viread) 300 MG tabletIndication s:Chronic viral hepatitis B without delta agent and without coma (CMS/HCC) Take 1 tablet (300 mg) by mouth daily. 30 tablet 11 06/21/2024 documented as of this encounter Miscellaneous Notes * Sara Mckeon - 01/11/2025 2:34 PM EDT Images from the original note were not included. [id number] Caring for Yourself after Contrast Imaging If [...] Info) Description 01/31/2025 12:15 PM EST Appointment [facility] Nuclear Medicine [address] [place] [address] 01/31/2025 2:30 PM EST Appointment [facility] Nuclear Medicine [address] [place] [address] 03/10/2025 8:00 AM EST Appointment [facility] Radiology [address] [place] [address] 03/10/2025 10:50 AM EST Clinical Support [facility] [address] [place] [address] 03/10/2025 11:00 AM EST Office Visit [facility] [address] [place] [address] Edison Skaggs MD [address] [place] [address] 06/29/2025 12:30 PM EDT Clinical Support [facility] Res[facility] [address] [place] [address], [address] [place] [address] 06/29/2025 1:00 PM EDT Office Visit [facility] Head[facility] Neck [facility] Respiratory [address] [place] [address] Danny Coon MD [address] [address] documented as of this encounter Procedures Procedure Name Priority Date/Time Associated Diagnosis Comments CT ABDOMEN PELVIS W IV CONTRAST Routine 01/11/2025 3:08 PM EDT History of colon cancer, stage II CT CHEST W IV CONTRAST Routine 01/11/2025 3:08 PM EDT History of colon cancer, stage II documented in this encounter Results * CT Chest w [...] Total DLP (Dose-Length Product): 576.01 mGy.cm (accession [id number]), 576.01 mGy.cm (accession [id number]) Please note: The reported value represents the [...] Total DLP (Dose-Length Product): 576.01 mGy.cm (accession [id number]),576.01 mGy.cm (accession [id number]) Please note: The reported valuerepresents the total [...] cm (previously subcentimeter, series 3 image 118 [email or web address]). A right common iliac lymph node measures [...] Total DLP (Dose-Length Product): 576.01 mGy.cm (accession [id number]), 576.01 mGy.cm (accession [id number]) Please note: The reported value represents the [...] Total DLP (Dose-Length Product): 576.01 mGy.cm (accession [id number]),576.01 mGy.cm (accession [id number]) Please note: The reported valuerepresents the total [...] cm (previously subcentimeter, series 3 image 118 [email or web address]). A right common iliac lymph node measures [...] MD IM CT PROCEDURES Final Resu lt documented in this encounter Visit Diagnoses Diagnosis History of colon cancer, stage II Personal history of malignant neoplasm of large intestine documented in this encounter Administered Medications Inactive Administered Medications - up to 3 most recent administrations Medication Order MAR Action Action Date Dose Rate Site iohexol (OMNIPaque) 300 MG/ML injection 100 mL 100 mL, Intravenous, Once in imaging, 1 dose, Starting on 01/11/25 at 1434, Until 01/11/25 at 1501, Routine, Imaging Protocol Orders Given 01/11/2025 3:01 PM EDT 100 mL iohexol (OMNIPaque) 9 MG/ML oral contrast 500 mL 500 mL, Oral, Once in imaging, 1 dose, Starting on 01/11/25 at 1434, Until 01/11/25 at 1437, Routine, Imaging Protocol Orders Given 01/11/2025 2:37 PM EDT 500 mL documented in this encounter Additional Health Concerns Assessment Noted Time PHQ-9 Depression Total Score: 0 06/22/19 1:53 PM EDT A fall risk assessment has been complete d for the patient 12/29/2024 1:10 PM EDT A Body Mass Index follow-up plan has been documented for the patient 06/23/2024 9:55 AM EDT documented as of this encounter Care Teams Director Of Student Financial Services Relationship Specialty Start Date End Date Sergey Oh MD PCP - General 11/13/21 Jean Mak MD 800 [facility] Cancer [address] [phone] Surgeon Otolaryngology 11/21/21 documented as of this encounter
--- OUTSIDE RECORDS SUMMARY | 2025-01-25 08:58 | XMS_ITS | Encounter Summary ---
Author Organization Healthcare Address [address] [place] [address] Care Team Providers Care Appliquer Name Role Phone Sergey Oh MD Primary Care Provider Jean Mak MD Unavailable Reason for Visit * Reason Comments Med Refill Encounter Details Date Type Department Care Team (Late st Contact Info) Description 05/12/2024 Refill [facility] [address] [place] [address] Danny Coon MD [facility] 125 [place] [address] Social History Tobacco Use Types [...] EST Appointment [facility] H Nuclear Medicine [address] [place] [phone] 01/31/2025 2:30 PM EST Appointment P[facility] H Nuclear Medicine 800 [place] [address] 03/10/2025 8:00 AM EST Appointment P[facility] G Radiology [address] [place] [address] 03/10/2025 10:50 AM EST Clinical Support [facility] [address] [place] [phone] 03/10/2025 11:00 AM EST Office Visit [facility] [address] [place] [phone] Edison Skaggs MD 800 [place] [address] 06/29/2025 12:30 PM EDT Clinical Support [facility] [address] [place] [address] 06/29/2025 1:00 PM EDT Office Visit [facility] [address] [place] [address] [place] [address] [place] [phone] documented as of this encounter Visit Diagnoses [...] documented as of this encounter Care Teams Appliquer Relationship Specialty Start Date End Date Sergey Oh MD PCP - General 11/13/21 Jean Mak MD 800 [facility] Cancer [address] [address] Surgeon Otolaryngology 11/21/21 documented as of this encounter
--- OUTSIDE RECORDS SUMMARY | 2025-01-25 08:58 | XMS_ITS | Encounter Summary ---
Author Organization Healthcare Address [address] [place] [address] Care Team Providers Care Book Sewing Machine Operator Name Role Phone Sergey Oh MD Primary Care Provider [phone] Jean Mak MD Unavailable [phone] Reason for Visit * Reason Comments Med Refill Encounter Details Date Type Department Care Team (Late st Contact Info) Description 12/17/2024 Refill [facility] [address] [place] [address] Danny Coon MD [facility] [facility] [address] [address] Social History Tobacco Use Types [...] [facility] st Contact Info) Description 01/31/2025 12:15 PM EST Appointment [facility] H Nuclear Medicine 800 [place] [address] 01/31/2025 2:30 PM EST Appointment P[facility] H Nuclear Medicine 800 [place] [address] 03/10/2025 8:00 AM EST Appointment P[facility] G Radiology [address] [place] [address] 03/10/2025 10:50 AM EST Clinical Support [facility] [address] [place] [address] 03/10/2025 11:00 AM EST Office Visit [facility] [address] [place] [phone] Edison Skaggs MD 800 [place] [address] 06/29/2025 12:30 PM EDT Clinical Support [facility] [address] [place] [phone] 06/29/2025 1:00 PM EDT Office Visit [facility] [address] [place] [phone] Danny Coon MD [address] [address] documented as of this encounter [...] documented as of this encounter Care Teams Book Sewing Machine Operator Relationship Specialty Start Date End Date Sergey Oh MD PCP - General 11/13/21 Jean Mak MD 800 [facility] Cancer [address] [address] Surgeon Otolaryngology 11/21/21 documented as of this encounter
--- OUTSIDE RECORDS SUMMARY | 2025-01-25 08:58 | XMS_ITS | Encounter Summary ---
Author Organization Healthcare Address [address] [place] [address] Care Team Providers Care Group Art Supervisor Name Role Phone Sergey Oh MD Primary Care Provider [phone] Jean Mak MD Unavailable [phone] Encounter Details Date Type Department Care Team (Late st Contact Info) Description 11/23/2021 Lab Requisition P[facility] H Lab 800 [place] [address] Jean Mak MD 800 [facility] [address] [place] [address] Malignant neoplasm of thyroid gland (CMS/HCC) [...] Upcoming Encounters Date Type Department Care Team ([facility] st Contact Info) Description 01/31/2025 12:15 PM EST Appointment P[facility] H Nuclear Medicine 800 [place] [address] 01/31/2025 2:30 PM EST Appointment P[facility] H Nuclear Medicine [address] [place] [address] 03/10/2025 8:00 AM EST Appointment P[facility] G Radiology [address] [place] [address] 03/10/2025 10:50 AM EST Clinical Support [facility] [address] [place] [phone] 03/10/2025 11:00 AM EST Office Visit [facility] [address] [place] [phone] Edison Skaggs MD 800 [place] [address] 06/29/2025 12:30 PM EDT Clinical Support [facility] [address] [place] [address] 06/29/2025 1:00 PM EDT Office Visit [facility] [address] [place] [phone] Danny Coon MD [address] [address] documented as of this encounter Procedures Procedure Name Priority Date/Time Associated Diagnosis Comments SURGICAL PATHOLOGY CONSULT Routine 11/23/2021 10:54 AM EDT Malignant neoplasm of thyroid gland (CMS/HCC) documented in this encounter Results * Surgical Pathology Consult (11/23/2021 10:54 AM EDT) Case Report Sugical Pathology Consult Case: [id number] Authorizing Provider: Jean Mak MD Collected: 11/23/2021 1054 Ordering Location: [facility] Lab Received: 11/23/2021 1055 Pathologist: Sona Montiel MD Specimen: Thyroid, [id number] 11/27/2021 5:00 PM EDT [facility] Final Diagnosis A. THYROID, RIGHT LOBE, HEMITHYROIDECTOMY : (OUTSIDE CASE #[id number], COLLECTED DATED: 09/09/2019) - PAPILLARY THYROID CARCINOMA, [...] FOR EXTRANODAL EXTENSION. 11/27/2021 5:00 PM EDT [facility] at 1700 EDT Synoptic Checklist THYROID [...] IN LEFT LOBE. 11/27/2021 5:00 PM EDT [facility] Clinical Information C73 - Malignant neoplasm of thyroid gland [ICD-10-CM] 11/27/2021 5:00 PM EDT [facility] Gross Description A. [id number] Received along with a corresponding pathology report from [facility] are 39 slide(s) labeled outside case: [id number] collected on 09/09/2019. 11/27/2021 5:00 PM EDT [facility] Note: A resident was involved in the service. I attest I examined the relevant preparations for the specimens and confirmed the diagnosis or interpretation. 11/27/2021 5:00 PM EDT [facility] Tissue Thyroid structure / Unknown 11/23/2021 10:54 AM EDT 11/23/2021 10:55 AM EDT Jean Mak MD LAB PATHOLOGY ORDERABLES Fin yosvany Result [facility] [address] [place] [address] documented in this encounter Visit Diagnoses Diagnosis Malignant neoplasm of thyroid gland (CMS/HCC) Malignant neoplasm of thyroid gland documented in this encounter Additional Health Concerns Assessment Noted Time A fall risk assessment has been complete d for the patient 11/23/2021 12:37 PM EDT documented as of this encounter Care Teams Group Art Supervisor Relationship Specialty Start Date End Date Sergey Oh MD PCP - General 11/13/21 Jean Mak MD [address] [place] [address] [phone] Surgeon Otolaryngology 11/21/21 documented as of this encounter
--- OUTSIDE RECORDS SUMMARY | 2025-01-25 08:58 | XMS_ITS | Clinical Summary ---
Author Organization [facility] Address [address] [facility] [place] [address] [place] [address] Phone Care Team Providers Care Ncqa Specialist Name Role Phone Riddhi Knox Dia Primary Care Provider [phone] Allergies No known active allergies Medications albuterol [...] to complete this topic Insurance [address] [place] [address] [place] [facility] [address] [place] [address] MEDICAID Care Teams Ncqa Specialist Relationship Specialty Start Date End Date Riddhi Knox [address] [place] [address] PCP - General Corporate Development Manager 03/01/13
--- OUTSIDE RECORDS SUMMARY | 2025-01-25 08:58 | XMS_ITS | Encounter Summary ---
Author Organization Healthcare Address [address] [place] [address] Care Team Providers Care Forklift Picker Name Role Phone Pcp, No Primary Care Provider Sergey Oswald MD Primary Care Provider [phone] Jean Mak MD Unavailable [phone] Encounter Details Date Type Department Care Team (Late Contact Info) Description 06/06/2016 Orders Only External Location [address] [place] [phone] Provider, External Social History Tobacco Use Types [...] EST Appointment [facility] Nuclear Medicine [address] [place] [phone] 01/31/2025 2:30 PM EST Appointment [facility] Nuclear Medicine [address] [place] [address] 03/10/2025 8:00 AM EST Appointment [facility] Radiology [address] [place] [phone] 03/10/2025 10:50 AM EST Clinical Support [facility] [address] [place] [address] 03/10/2025 11:00 AM EST Office Visit [facility] [address] [place] [phone] Edison Skaggs MD [address] [place] [address] 06/29/2025 12:30 PM EDT Clinical Support [facility] [address] [phone] 06/29/2025 1:00 PM EDT Office Visit [facility] [address] [phone] Danny Coon MD 2195 [facility] 125 [place] [phone] documented as of this encounter Procedures Procedure [...] on filedocumented in this encounter Care Teams Forklift Picker Relationship Specialty Start Date End Date Pcp, No [address] [place] [address] PCP - General Family Medicine 03/31/21 11/12/21 Sergey Oh MD [address] [place] [address] PCP - General 11/13/21 Jean Mak MD [address] [place] [address] [facility] [address]nd [place] [address] Surgeon Otolaryngology 11/21/21 documented as of this encounter
--- OUTSIDE RECORDS SUMMARY | 2025-01-25 08:58 | XMS_ITS | Encounter Summary ---
Author Organization Healthcare Address [address] [place] [address] Care Team Providers Care Route Delivery Service Driver Name Role Phone Pcp, No Primary Care Provider Sergey Oswald MD Primary Care Provider [phone] Jean Mak MD Unavailable [phone] Encounter Details Date Type Department Care Team (Late Contact Info) Description 02/12/2017 Orders Only External Location [address] [place] [phone] Provider, External Social History Tobacco Use Types [...] EST Appointment [facility] Nuclear Medicine [address] [place] [phone] 01/31/2025 2:30 PM EST Appointment [facility] [address] [place] [address] 03/10/2025 8:00 AM EST Appointment [facility] Radiology [address] [place] [phone] 03/10/2025 10:50 AM EST Clinical Support [facility] [address] [place] [address] 03/10/2025 11:00 AM EST Office Visit [facility] [address] [place] [phone] Edison Skaggs MD 800 [place] [address] 06/29/2025 12:30 PM EDT Clinical Support [facility] [address] [phone] 06/29/2025 1:00 PM EDT Office Visit [facility] [address] [phone] Danny Coon MD 2195 [facility] 125 [place] [phone] documented as of this encounter Procedures Procedure [...] on filedocumented in this encounter Care Teams Route Delivery Service Driver Relationship Specialty Start Date End Date Pcp, No [address] [place] [address] PCP - General Family Medicine 03/31/21 11/12/21 Sergey Oh MD [address] [place] [address] PCP - General 11/13/21 Jean Mak MD [address] [place] [address] [facility] [address]nd [place] [address] Surgeon Otolaryngology 11/21/21 documented as of this encounter
--- OUTSIDE RECORDS SUMMARY | 2025-01-25 08:58 | XMS_ITS | Encounter Summary ---
Author Organization Healthcare Address [address] [place] [address] Care Team Providers Care Enforcement Officer Name Role Phone Pcp, No Primary Care Provider Sergey Oswald MD Primary Care Provider [phone] Jean Mak MD Unavailable [phone] Encounter Details Date Type Department Care Team (Late Contact Info) Description 10/13/2018 Orders Only External Location [address] [place] [phone] Provider, External Social History Tobacco Use Types [...] EST Appointment [facility] Nuclear Medicine [address] [place] [phone] 01/31/2025 2:30 PM EST Appointment [facility] [address] [place] [address] 03/10/2025 8:00 AM EST Appointment [facility] Radiology [address] [place] [phone] 03/10/2025 10:50 AM EST Clinical Support [facility] [address] [place] [address] 03/10/2025 11:00 AM EST Office Visit [facility] [address] [place] [phone] Edison Skaggs MD 800 [place] [address] 06/29/2025 12:30 PM EDT Clinical Support [facility] [address] [phone] 06/29/2025 1:00 PM EDT Office Visit [facility] [address] [phone] Danny Coon MD 2195 [facility] 125 [place] [phone] documented as of this encounter Procedures Procedure [...] on filedocumented in this encounter Care Teams Enforcement Officer Relationship Specialty Start Date End Date Pcp, No [address] [place] [address] PCP - General Family Medicine 03/31/21 11/12/21 Sergey Oh MD [address] [place] [address] PCP - General 11/13/21 Jean Mak MD [address] [place] [address] [facility] [address] [place] [address] Surgeon Otolaryngology 11/21/21 documented as of this encounter
--- OUTSIDE RECORDS SUMMARY | 2025-01-25 08:58 | XMS_ITS | Encounter Summary ---
Author Organization Healthcare Address [address] [place] [address] Care Team Providers Care Coil Tier Name Role Phone Sergey Oh MD Primary Care Provider [phone] Jean Mak MD Unavailable [phone] Encounter Details Date Type Department Care Team [...] Info) Description 01/31/2025 12:15 PM EST Appointment [facility] H Nuclear Medicine [address] [place] [address] 01/31/2025 2:30 PM EST Appointment [facility] Nuclear Medicine [address] [place] [address] 03/10/2025 8:00 AM EST Appointment [facility] Radiology [address] [place] [address] 03/10/2025 10:50 AM EST Clinical Support [facility] Multidisciplinary Oncology Clinic [address] [place] [address] 03/10/2025 11:00 AM EST Office Visit [facility] Multidisciplinary Oncology Clinic [address] [place] [phone] Edison Skaggs MD [address] [place] [address] 06/29/2025 12:30 PM EDT Clinical Support [facility] 800 [facility], [address] [place] [address] 06/29/2025 1:00 PM EDT Office Visit [facility] 800 [facility], [address] [place] [phone] Danny Coon MD 2195 [facility] 125 [place] [phone] documented as of this encounter Visit Diagnoses [...] documented as of this encounter Care Teams Coil Tier Relationship Specialty Start Date End Date Sergey Oh MD PCP - General 11/13/21 Jean Mak MD [address] [place] [address] [facility] [address] [place] [address] Surgeon Otolaryngology 11/21/21 documented as of this encounter
--- OUTSIDE RECORDS SUMMARY | 2025-01-25 08:59 | XMS_ITS | Encounter Summary ---
Author Organization Healthcare Address [address] [place] [address] Care Team Providers Care Hand Bunch Maker Name Role Phone Sergey Oh MD Primary Care Provider [phone] Jean Mak MD Unavailable [phone] Encounter Details Date Type Department Care Team (Late st Contact Info) Description 12/06/2023 Orders Only External Location [address] [place] [address] Daryl Pina MD [address] [place] [address] Social History Tobacco Use Types Packs/Day [...] Upcoming Encounters Date Type Department Care Team ([facility] Contact Info) Description 01/31/2025 12:15 PM EST Appointment [facility] Nuclear Medicine [address] [place] [address] 01/31/2025 2:30 PM EST Appointment [facility] Nuclear Medicine [address] [place] [address] 03/10/2025 8:00 AM EST Appointment [facility] Radiology [address] [place] [address] 03/10/2025 10:50 AM EST Clinical Support [facility] [address] [place] [phone] 03/10/2025 11:00 AM EST Office Visit [facility] [address] [place] [phone] Edison Skaggs MD [address] [place] [address] 06/29/2025 12:30 PM EDT Clinical Support [facility] [address] [place] [phone] 06/29/2025 1:00 PM EDT Office Visit [facility] [address] [place] [phone] Danny Coon MD [address] [phone] documented as of this encounter Procedures Procedure [...] documented as of this encounter Care Teams Hand Bunch Maker Relationship Specialty Start Date End Date Sergey Oh MD PCP - General 11/13/21 Jean Mak MD [address] [place] [address] [phone] Surgeon Otolaryngology 11/21/21 documented as of this encounter
--- OUTSIDE RECORDS SUMMARY | 2025-01-25 08:59 | XMS_ITS | Data Portability ---
Author Organization [facility] Address [address] [place] [address] Assessment No assessment recorded. Plan of Treatment Reminders Order Date Submit Date Provider Last Modified By Organization Details Last Modified Time Details Appointments None recorded . Lab None recorded . Referral None recorded . Procedures nebulize r treatmen t (PROC) 2024 025 [email or web address] Not available 16:45:16 Surgeries None recorded . Imaging XR, thoracic spine, 2 view 2024 025 [email or web address] [facility] (Centralized Scheduling), [address] [place] [address] [place], [address], 5 14:48:25 XR, lumbar spine, 2 view 2024 025 [email or web address] [facility] (Centralized Scheduling), [address] [place] [address] [place], [address], 5 14:48:25 Medication Orders hydrocod one 7.5 mg-aceta minophen 325 mg tablet 2024 025 [facility] [place], [address] [facility], [place], [address], 5 16:54:41 ceftriax one 1 gram solution for injectio n 2024 025 [email or web address] Not available 16:06:41 ipratrop ium 0.5 mg-albut armando 3 mg (2.5 mg base)/3 mL nebuliza tion soln 2024 025 [facility], [address] [place] [address], [address], 5 16:26:12 hydrocod one 7.5 mg-aceta minophen 325 mg tablet [address], [address], 5 13:47:00 ketorola c 60 mg/2 mL intramus cular solution 2024 025 [email or web address] Not available 5 08:31:55 ketorola c 10 mg tablet 2024 025 [facility], [address] [place] [address], [address], 5 14:07:59 hydrocod one 7.5 mg-aceta minophen 325 mg tablet 2023 024 [facility], [address] [place] [address], [address], 4 10:29:34 olanzapi ne 10 mg tablet [address], [address], 5 13:52:26 Ventolin HFA 90 mcg/actu ation aerosol inhaler 2023 024 [facility], [address] [place], [address], 4 17:01:03 hydrocod one 7.5 mg-aceta minophen 325 mg tablet 2023 024 [facility], [address] [place], [address], 17:01:01 Patient TargetsNo targets recorded. Patient InstructionsNo instructions recorded. Reason for Referral None Reported. Results Created Date Observation Date Name Description Value Unit Range Abnormal Flag Note LastModifiedBy Organization Detail LastModifiedTime 01/20/20 24 12/06/2023 CT, abdom en + pelvi s, w/ contr ast No observ ation record ed. [email or web address] Not Available 2023 08:01:47 01/20/20 24 12/06/2023 CT, abdom en + pelvi s, w/ contr ast No observ ation record ed. [email or web address] Not Available 2023 08:01:48 01/20/2012/11/2023 CT, abdom en + pelvi s, w/ contr ast No observ ation record ed. [email or web address] Not Available 12/30 16:34:15 02/16/20 24 02/13/2024 MAMMO , scree kendall, digit al, bilat eral [facility] Name: FERNY INGRAM [address] [place], [place] [address]a [employer] [facility] Phys: [employer] (Apple aly) ,[facility] [place] [address] : 1980 Age: 43 Sex: F Acct: [id number] Loc: G.MAMM PHONE #: Exam Date: 2023 Status : DEP CLI FAX #: Rad# [id number] Unit# [id number] Admit Date: 2023 EXAMS: CPT CODE: [id number] SCN DIG BREAST TOMOSY N ALLEN 29888 BILATE RAL DIGITA L SCREEN ING MAMMOG [...] abnorm ality, unexpl ained by breast imagin g, should be manage d on clinic al basis by the attend ing physic blanca. *Brenina kbeede imagin g has a false negati ve rate of [...] MD PAGE 1 Signed Report (SALOMON NUED) [facility] Name: FERNY INGRAM [facility] Phys: [employer] EDGAR (Apple ton),[place] [address] : 1980 Age: 43 Sex: F Acct: [id number] Loc: G.MAMM PHONE #: [phone] Exam Date: 2023 Status : DEP CLI FAX #: [phone] Rad# [id number] Unit# [id number] Admit Date: 2023 EXAMS: CPT CODE: [id number] SCN DIG BREAST TOMOSY N ALLEN [id number] CC: Altaf Peck MD (Apple ton); VINCENT MAYER MD; Sergey Oh MD Dictat ed Date/T sinan: 2023 (1739) Techno logist : JARRET BECKET T Transc ribed Date/T sinan: 2023 (1739) Transc riptio nist: DR.HAG SHANIA stapleton Signat ure Date/T sinan: 2023 (1739) Printe d Date/T sinan: 2023 (1714) BATCH NO: N/A PAGE 2 Signed Report CC'ed Logic: Orderi ng Provid er: [facility] Attend ing Provid er: [facility] Referr ing Provid er: [facility] Consul ting Provid er: MORENO ARANA [email or web address] [address] [place], [address], 03/16/2024 12:50:29 05/27/19 25 05/27/2024 XR, thora cic spine , 2 view No observ ation record ed. [address] (Centralized Scheduling) [address] [place] [address] [place], [address], 05/28/2024 12:57:58 05/27/19 25 05/27/2024 XR, lumba r spine , 2 view No observ ation record ed. [address] (Centralized Scheduling) [address] [place] [address] [place], [address], 05/28/2024 12:57:59 Result Notes None recorded. Problems Name Problem SNOMED Code Status Onset Date Resolution Date Notes Provider Name and Address Organization Details Recorded Time Malignant neoplasm of thyroid gland 147125339 Active Lori Langley null, [place] - [facility] 3 14:13:49 Suspected COVID-19 158562069 Completed 05/19/2020 Removal Reason: Problem added by user [email or web address] from the COVID-19 watch flag Shi Sneed null, [place] - [facility] 1 14:56:55 Adult health examinati on Completed 201609/15/2017 Riddhi Knox MD [address], [place], [address] [facility] [place] - [facility] 8 17:07:52 Sinusitis 08748711 Completed 201705/19/2020 Karen Durán null, [place] - [facility] 1 14:56:18 History of hepatitis B 900594616 Active 2020 Lori Langley null, [place] - [facility] 3 14:13:41 Cervical intraepit helial neoplasia grade III with severe dysplasia 141133092 Active 2022 Lori Langley null, [place] - [facility] 3 14:13:36 Malignant neoplasm of rectum 672090721 Active 2023 Rosalee Florentino null, [place] - [facility] 4 17:03:09 Problem Notes None recorded. Procedures Surgical History Date Name Laterality Status Provider Name and Address Organization Details Recorded Time 02/02/20 24 IV Infusion completed Rosalee Florentino [place] - [facility] 02/02/2024 17:07:58 12/19/19 24 Medication Reconcilliation completed Daria Sullivan [place] - [facility] 12/19/2023 16:26:21 07/22/19 24 Date of Last Pap Smear completed Avelina Lamas APRN [address], [place], [address], [place] [facility] 07/29/2023 08:30:14 04/24/19 23 Cold Knife Cone completed Lori Langley [place] - [facility] 05/02/2022 14:15:02 04/04/19 23 Colposcopy completed Avelina Lamas APRN [address], [place], [address], [place] [facility] 04/04/2022 13:08:25 04/04/19 23 Colposcopy completed Avelina Lamas APRN [address], [place], [address], [place] [facility] 04/04/2022 13:08:55 04/04/19 23 Colposcopy completed Avelina Lamas APRN [address], [place], [address], [place] [facility] 04/04/2022 13:09:12 09/21/19 22 Date of Last Mammogram completed Avelina Lamas APRN [address], [place], [address], [place] - [facility] 03/13/2022 09:55:52 08/15/19 21 Colposcopy cancelled Miguelina Durand [place] - [facility] 07/26/2020 08:35:54 06/03/19 21 Systolic B/P less than 130 mm Hg completed Avelina Lamas, [employer]TER [address], [place], [address], [place] [facility] 06/05/2020 06:02:52 06/03/19 21 Diastolic B/P less than 80 mm Hg completed Avelina Lamas, [employer] S[employer]TER [address], [place], [address], [place] - [facility] 06/05/2020 06:02:56 05/19/19 21 Systolic B/P less than 130 mm Hg completed Shi Sneed [place] - [facility] 05/19/2020 15:01:32 05/19/19 21 Diastolic B/P less than 80 mm Hg completed Shi Sneed [place] - [facility] 05/19/2020 15:01:35 03/29/20 02 delivery completed Archana Otoniel [place] - [facility] 06/02/2020 16:11:04 03/29/20 01 Tubal Ligation completed Isabela Michelle [place] - [facility] 04/05/2016 10:34:26 03/31/18 99 Cholecystectomy, laparoscopic completed Isabela Michelle [place] - [facility] 04/05/2016 10:33:43 03/31/18 80 Tonsillectomy completed Isabela Martinez [place] - [facility] 04/05/2016 10:34:43 thyroidectomy completed Archana Frederick [place] - [facility] 06/02/2020 16:18:00 excision of lymph node completed Archana Frederick [place] - [facility] 03/12/2022 15:32:16 Knee Surgery completed Archana Frederick [place] - [facility] 07/22/2023 16:25:32 Imaging Results None [...] NEBULIZA TION ROUTE DIRECTED FOR 30 DAYS. 2024 active Not Available Not Available Not Avai lable Depo-Medr ol 40 mg/mL suspensio n for [...] Not Available Not Available Not Available betametha sone, augmented 0.05 % topical cream 09/15 completed [...] gillisa; Est. Completi on: 08/10/19 12;Print ed: 07/31/19 12 Not Available Not Available Not Available [...] hydroxyzi ne HCl 50 mg tablet TAKE 1 TABLET BY MOUTH EVERY 12 HOURS 2024 active Not Available Not Available Not Avai lable prochlorp erazine maleate 10 mg tablet active Not Available Not Available Not Available tramadol 50 mg tablet TAKE 1 TABLET BY MOUTH EVERY 4 HOURS NEEDED FOR PAIN OR CRAMPS OR SEVERE PAIN 07/21 completed Not Available Not Available Not Available Robitussi n-DM 10 mg-100 mg/5 mL oral syrup take 10 millilit ers by oral route every 4 hours as needed 07/30 completed Robituss in-DM 10-100 mg/5 mL oral syrup;Re corded Status: Recorded on: 03/20/20 11 4:05PM;D iscontin ued Status: Disconti nued on: 07/31/19 12 1:41PM;U ser: [email or web address]; Indicati on: Cough - ([phone]);Prin lisbet: 03/20/20 11 Not Available Not [...] 05/19/19 12;Indic ation: Gastroes ophageal Reflux - (09.5308 10);Prin lisbet: 03/20/20 11 Not Available Not [...] e 50 mcg/actua tion nasal spray,med[employer] pension [place] 1 spray every day by intranas al [...] TABLET BY MOUTH DAILY FOR 3 DAYS 12/13 /2022 completed Not Available Not Available Not Available [...] Disconti nued on: 04/19/19 11 2:04PM;U ser: [email or web address];Est. Completi on: 02/17/20 09;Indic ation: - (-5) [...] blood by Pulse oximetry Respiratory rate Systolic And Diastolic Provider Name and Address Organization Details Last Updated DateTime 5 162.56 cm 24.7 kg/m2 67357.3 g 98 /min 94 % 94 % 18 /min 110/78 mm[Hg] Daria Walker [facility] - [facility] 5 13:39:51 Date Recorded Body height Body mass index (BMI) Body weight Body temperature Heart rate Oxygen saturation Oxygen saturation in Arterial blood by Pulse oximetry Respiratory rate Systolic And Diastolic Provider Name and Address Organization Details Last Updated DateTime 5 162.56 cm 25.2 kg/m2 41204.0 8 g 97.5 [degF] 90 /min 95 % 95 % 18 /min 114/76 mm[Hg] Daria Walker [facility] - [facility] 5 16:14:55 Date Recorded Body height Body mass index (BMI) Body weight Body temperature Heart rate Oxygen saturation Oxygen saturation in Arterial blood by Pulse oximetry Respiratory rate Systolic And Diastolic Provider Name and Address Organization Details Last Updated DateTime 4 162.56 cm 25 kg/m2 89710.9 9 g 98.2 [degF] 94 /min 97 % 97 % 18 /min 100/72 mm[Hg] Vincent Mayer MD [address], [place], [address], [place] - [facility] 4 16:49:18 Date Recorded Body height Body mass index (BMI) Body weight Body temperature Heart rate Oxygen saturation Oxygen saturation in Arterial blood by Pulse oximetry Respiratory rate Systolic And Diastolic Provider Name and Address Organization Details Last Updated DateTime 4 162.56 cm 23.5 kg/m2 31745.1 5 g 97.8 [degF] 53 /min 91 % 91 % 18 /min 110/76 mm[Hg] Daria MonSamina [facility] - [facility] 4 10:03:54 Social History Question Answer Notes LastModified by Organizat ion Details LastModified Time Tobacco Smoking Status Current Every Day Smoker Isabela rosenberg, [place] - [facility] 04/05/2016 10:31:38 Do You Have An Advance Directive? No Information not available 04/05/2016 Are You Blind Or Do You Have Difficulty Seeing? No [email or web address] Information not available 06/02/2020 Is Blood Transfusion Acceptable In An Emergency? Yes [email or web address] Information not available 06/02/2020 What Is Your Level Of Caffeine Consumption? Heavy Information not available 04/05/2016 How Much Tobacco Do You Chew? None Information not available 04/05/2016 In The 14 Days Before Symptom Onset, Have You Had Close Contact With A Laboratory-confir med COVID-19 While That Case Was Ill? No [email or web address] Information not available 03/12/2022 In The 14 Days Before Symptom Onset, Have You Had Close Contact With A Person Who Is Under Investigation For COVID-19 While That Person Was Ill? No [email or web address] Information not available 03/12/2022 Have You Been To An Area Known To Be High Risk For COVID-19? No [email or web address] Information not available 03/12/2022 Are You Deaf Or Do You Have Serious Difficulty Hearing? No [email or web address] Information not available 06/02/2020 What Type Of Diet Are You Following? REGULAR [email or web address] Information not available 06/02/2020 Have You Processed Blood Or Body Fluids From An Ebola Virus Disease Patient Without Appropriate PPE? No [email or web address] Information not available 03/12/2022 Do You Reside In Or Have You Traveled To An Area Where Ebola Virus Transmission Is Active? No Information not available 03/12/2022 What Is The Highest Grade Or Level Of School You Have Completed Or The Highest Degree You Have Received? [id number] [email or web address] Information not available 06/02/2020 How Many Days Of Moderate To Strenuous Exercise, Like A Brisk Walk, Did You Do In The Last 7 Days? 0 Information not available 06/02/2020 On Those Days That You Engage In Moderate To Strenuous Exercise, How Many Minutes, On Average, Do You Exercise? 0 [email or web address] Information not available 06/02/2020 Have There Been Any Changes To Your Family Or Social Situation? No [email or web address] Information no t available 03/12/2022 How Hard Is It For You To Pay For The Very Basics Like Food, Housing, Medical Care, And Heating? Not Very Hard [email or web address] Information not available 03/12/2022 What Is The Fluoride Status Of Your Home? Fluoridated [email or web address] Information not available 03/12/2022 Hard Of Hearing Or Deaf In One Or Both Ears? No Information not available 04/05/2016 Have You Recently Or Are You Planning To Travel To An Area With Zika Virus? No [email or web address] Information not available 03/12/2022 Legally Blind In One Or Both Eyes? No Information no t available 04/05/2016 Live Alone Or With Others? With Others Information not available 04/05/2016 Last Menstrual Period? 10/29/2021 [email or web address] Information not available 03/12/2022 Do You Have A Medical Power Of Security Intern? No Information not available 03/12/2022 What Was The Date Of Your Most Recent Tobacco Screening? 06/18/2024 Information not available 06/18/2024 How Many Children Do You Have? 4 Information not available 04/05/2016 What Is Your Current Pack Years? 20-29packyears [email or web address] Information not available 03/12/2022 Performs Monthly Self-breast Exam? Yes [email or web address] Information no t available 06/02/2020 Do You Use Protection During Sex? Always [email or web address] Information not available 06/02/2020 Do You Use Protection Against STDs? No [email or web address] Information not available 03/12/2022 What Is Your Relationship Status? Information not available 03/12/2022 Seat Belts Used Routinely Yes Information not available 04/05/2016 Are You Sexually Active? Yes [email or web address] Information not available 06/02/2020 Do You Have Smoke And Carbon Monoxide Detectors In Your Home? Yes [email or web address] Information not available 03/12/2022 At What Age Did You Start Smoking Tobacco? 11 [email or web address] Information not available 06/02/2020 Are You Passively Exposed To Smoke? Yes [email or web address] Information no t available 03/12/2022 How Much Tobacco Do You Smoke? 1 PPD Information not available 04/05/2016 General Stress Level Low [email or web address] Information not available 06/02/2020 Do You Use Sunscreen Routinely? No [email or web address] Information not available 06/02/2020 Has Tobacco Cessation Counseling Been Provided? Yes [email or web address] Information not available 07/22/2023 On What Date Was Tobacco Cessation Counseling Provided? 06/18/2024 Information not available 06/18/2024 How Many Years Have You Smoked Tobacco? 30 [email or web address] Information not available 03/12/2022 Do You Have Difficulty Walking Or Climbing Stairs? No Information not available 06/02/2020 What Contraceptive Method Was Reported At Start Of This Visit? Female Sterilization [email or web address] Information not available 03/12/2022 What Contraceptive Method Was Reported At End Of This Visit? Female Sterilization [email or web address] Information not available 03/12/2022 Do You Want To Talk About Contraception Or Prevention During Your Visit Today? No - I Do Not Want To Talk About Contraception Today Because I Am Here For Something Else [email or web address] Information not available 03/12/2022 How Was The Contraceptive Method Provided? Provided On Site Information no t available 03/12/2022 Do You Have Any Future Plans To Get ? No, I Don't Want To Become [email or web address] Information not available 03/12/2022 Sex: Female Functional Status Question Answer Note LastModified by OrganPepscanat ion Details LastModified Time Do you or have you ever used smokeless tobacco? Never used smokeless tobacco Information not available 06/02/2020 Are you currently employed? No Information not available 04/05/2016 Do you have transportation difficulties? No Information not available 03/12/2022 Are you able to care for yourself independently? Yes Information not available 04/05/2016 Do you have difficulty dressing, bathing, grooming, or toileting? No [email or web address] Information not available 06/02/2020 Do you or have you ever used e-cigarettes or vape? Current user of electronic cigarettes [email or web address] Information not available 03/12/2022 What is your exercise level? None Information not available 04/05/2016 Do you use any illicit or recreational drugs? No [email or web address] Information not available 03/12/2022 Do you or have you ever used any other forms of tobacco or nicotine? Yes [email or web address] Information not available 03/12/2022 What is your level of alcohol consumption? Occasional Information not available 04/05/2016 What is your status? Not [email or web address] Information no t available 03/12/2022 Are you able to walk independently without assistance or assistive devices? YESWOREST [email or web address] Information not available 06/02/2020 Do you have difficulty doing errands alone? No [email or web address] Information not available 06/02/2020 Mental Status Question Answer Note LastModified by Organizat ion Details LastModified Time Do you feel stressed (tense, restless, nervous, or anxious, or unable to sleep at night)? EM2537-7 [email or web address] Information not available 06/02/2020 Do you have difficulty concentrating, remembering or making decisions? No [email or web address] Information no t available 06/02/2020 Family History Relationship Description Onset Age of this Age Resolved Age Notes LastModified by Organization Details LastModified Time Mother Congestive heart failure [email or web address] Not available 2016 08:11:25 Mother Essential hypertension [email or web address] Not available 08:11:34 Mother Hypercholest erolemia [email or web address] Not available 2016 08:13:32 Mother Malignant neoplasm of lung [email or web address] Not available 2021 15:28:55 Father Family history of stroke [email or web address] Not available 2016 08:11:57 Father Stented artery [email or web address] Not available 2016 08:12:10 Father Hypercholest erolemia [email or web address] Not available 2016 08:13:32 Paternal Aunt Malignant neoplasm of breast [email or web address] Not available 2016 08:12:41 Maternal Grandmother Myocardial infarction [email or web address] Not available 04/19 08:13:14 Maternal Aunt Myocardial infarction [email or web address] Not available 04/19 08:13:14 Maternal Grandfather Malignant neoplasm of lung [email or web address] Not available 2016 08:13:53 Medical History Condition Response Pancreatitis N Coronary Artery Disease N Other N Gout N Atrial Fibrillation N congenital heart disease N Kidney Stones N Blood Diseases N Hyperthyroidism N Rheumatoid arthritis N Blood Transfusion N Erectile Dysfunction N amputation N Colonoscopy N Skin Lesions N Depression N COPD N Pneumonia N Incontinence N Murmur N Edema N Alzheimer's Disease N Migraine Headaches N Tobacco Abuse N Anxiety Disorder N Muscle, Joint, or Bone Problems N Hemorrhoids N Obesity N Vision or Eye Problems N Restless Leg Syndrome N Arthritis N Polyps N Infertility N Mental Disorder N Carpal Tunnel N Acid Reflux (GERD) Y Cancer N Varicosities N Stroke N Tendonitis N Crohn's Disease N Hypercholesterolemia N Skin Cancer N Headaches N Fibromyalgia N Irritable Bowel Syndrome N Anal Fissure N Kidney Disease N Heart Problems N [...] D Deficiency N Cellulitis N Endometriosis N Bladder or Kidney Problems N Fracture N Liver Disease N Schizophrenia N Panic Disorder N Concussion N Spina Bifida N Allergies/Hayfever N Osteoarthritis N Parkinson's Disease N Disc Protrusion N STI N Esophagitis N Angina N Thyroid Problems N GI Problems N ADD/ADHD N Anemia N Multiple Sclerosis N Abnormal PAP N Lumbago N Mental Illness N Psychiatric Illness N Ovarian Cancer N Diabetes N Bedwetting N Degenerative Disc Disease N Seizures/Epilepsy N Congestive Heart Failure (CHF) N Syncope N Hyperlipidemia N Insomnia N Eczema N Abuse/Domestic Violence N Attention Deficient Disorder N Dementia N Diverticulitis N Ulcerative colitis N Cerebrovascular Disease N Depression N Guillain-[place] N Sleep Apnea N Aneurysm N Bronchitis [...] Recorded Time Tdap 6 completed Not Available [facility] 05/01/2019 02:21:37 Influenza, split virus, quadrivalent, preservative 7 completed Not Available [facility] 04/17/2019 03:54:43 Influenza, split virus, trivalent, preservative 4 completed Daria Sullivan null, [place] - [facility] 02/20/2024 14:53:30 COVID-19, mRNA, LNP-S, PF, 100 mcg/0.5mL dose or 50 mcg/0.25mL dose 2 completed Archana Frederick null, [place] - [facility] 07/22/2023 16:21:29 Pneumococcal conjugate PCV20, polysaccharide [id number] conjugate, adjuvant, PF 2 completed Archana Frederick [place] - [facility] 07/22/2023 16:21:29 Influenza, split virus, quadrivalent, PF 2 completed Archana Frederick [place] [facility] 07/22/2023 16:21:29 Tdap 4 completed Avelina Lamas APRN [address], [place], [address], [place] [facility] 07/23/2023 05:21:42 Hep A, adult 4 completed Avelina Lamas APRN [address], [place], [address], [place] [facility] 07/23/2023 05:22:06 Past Encounters Encounter ID Performer Location Encounter Start Date Encounter Closed Date Diagnosis/Indication Diagnosis SNOMED-CT Code Diagnosis ICD10 Code Diagnosis IMO Codes Diagnosis Note [id number] Gregory Elizalde [address] [place] [id number] 04/05/2016 10:05:22 04/05/2016 11:01:43 Epigastric pain 49579064 R10.13 Start Prilosec 20mg twice daily. [id number] Gregory Elizalde DO [address] [place] [id number] 04/19/2016 07:52:22 04/19/2016 08:44:27 Type B viral hepatitis 22075685 B19.10 [id number] Riddhi Knox MD [address] [place] [id number] 04/25/2016 08:30:39 04/25/2016 09:40:52 Adult health examination 130171089 Z00.00 [id number] Riddhi Knox MD [address] [place] [id number] 01/30/2017 14:56:11 01/30/2017 15:56:54 Influenza vaccine needed 6244358062 106 Z23 Major depr essive disorder 711464747 F32.9 Hyperglycemia 09309248 R 73.9 [id number] Cody Swann MD [address] [place] [id number] 03/06/2017 10:38:42 03/06/2017 11:11:28 Upper respiratory infection 00573726 J06.9 Acute bron chitis with bronchospasm 75647792 J20.9 Pruritic rash 37380555 L 28.2 [id number] Riddhi Knox MD [address] [place] [id number] 04/24/2017 15:36:54 04/24/2017 16:35:48 Adult health examination 669379705 Z00.00 Sinusitis 30545046 J32.9 Hyperlipid emia screening 343913459 Z13.560 [id number] Riddhi Knox MD [address] [place] [id number] 05/14/2017 08:59:46 05/14/2017 09:49:48 Blood glucose outside reference range 403473921 R73.09 Mixed hyperlipidemia 267 592282 E78.2 Tobacco user 722881794 Z 72.0 [id number] Riddhi Knox MD [address] [place] [id number] 09/15/2017 16:51:43 09/15/2017 17:34:12 Pain of multiple joints 01524853 M25.50 Nicotine dependence 5629 4008 F17.200 Lateral epicondylitis 20 7319056 M77.12 Pruritic rash 91651467 L 28.2 [id number] Riddhi Knox MD [address] [place] [id number] 10/13/2017 16:55:14 10/13/2017 17:48:28 Pain of multiple joints 51440232 M25.50 Gastroesop hageal reflux disease without esophagitis 716078038 K21.9 Asthma 183213599 J45.90 9 Nicotine dependence 5629 4008 F17.715 [id number] Karen Dur[facility] [address] [place] 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 She does not require dietary consult. Counseling 676268131 Z71 .82 Exercise counsellin g. Patient encouraged to exercise 30 minutes 5 days a week. Screening for malignant neoplasm of cervix 460648306 Z12.4 Z11.51 Z11.8 History of tubal ligation 231140757 Z98.51 Screening mammography 24 591378 Z12.31 Malignant neoplasm of thyroid gland 722150046 C73 History of hepatitis B 933162856 Z86.19 Body mass index 20-24 - normal 260858851 Z68.23 Venereal d isease screening 544004460 Z11.3 Cigarette smoker 2961311 7 F17.210 Tobacco use discourage d. Techniques for quitting smoking discussed including pharmaceut icals (Nicotine patches, gum, Zyban, and Chantix) and behavioral therapy (Otoniel Almeida). 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 Lung cancer risk reduction also discussed. [id number] CASSIUS Matt AGRICULTURAL COMMODITIES INSPECTOR [address] [place] [address] MAURICE Man [address] 7 03/12/2022 14:53:10 03/12/2022 16:15:31 Routine gynecologic examination done 3360078610 9101 Z01.419 Examinatio n of blood pressure 021994830 Z01.30 BP goal < 140/90 Depression screening 171 773652 Z13.31 Diet education 38390693 Z71.3 5703-8529 calorie diet recommende d with an emphasis on reducing sugar and refined carbohydra [place], avoiding highly processed foods and decreasing saturated fats. She does not require dietary consult. Counseling 765523860 Z71 .82 Exercise counseleric urban Patient encouraged to exercise 30 minutes 5 days a week. Vaccine de clined by patient 6105174220 02 Z28.21 Screening for malignant neoplasm of cervix 587710730 Z12.4 Z11.8 Abnormal u terine bleeding 3299160277 9100 N93.9 Screening for malignant neoplasm of breast 488516963 Z12.39 Body mass index 20-24 - normal 627450034 Z68.23 History of tubal ligation 699302493 Z98.51 History of malignant neoplasm of thyroid 151341132 Z85.850 Cigarette smoker 9277370 7 F17.210 Tobacco use discourage d. Techniques for quitting smoking discussed including pharmaceut icals (Nicotine patches, gum, Zyban, and Chantix) and behavioral therapy (Otoniel Almeida). 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 Lung cancer risk reduction also discussed. [id number] CASSIUS Matt AGRICULTURAL COMMODITIES INSPECTOR [address] [place] [address] MAURICE Man [address] 04/04/2022 11:08:39 04/04/2022 12:07:54 High grade squamous intraepithelial lesion on cervical Papanicolaou smear 4086662910 9107 R87.613 R87.810 Malignant neoplasm of thyroid gland 455014414 C73 [id number] DO Jose E Dorsey AGRICULTURAL COMMODITIES INSPECTOR [address] [place] [address] MAURICE Man [address] 7 04/19/2022 11:43:37 04/19/2022 12:06:06 Pre-surgery evaluation 363592446 Z01.818 High grade squamous intraepithelial lesion on cervical Papanicolaou smear 8928111090 9107 R87.613 Cervical intraepithelial neoplasia grade III with severe dysplasia 545060250 D06.9 Scheduled for [facility] [place] [id number] DO Jose E Dorsey AGRICULTURAL COMMODITIES INSPECTOR [address] [place] [address] MAURICE Man [address] 7 05/02/2022 14:03:40 05/02/2022 14:35:56 Surgical follow-up 434969342 Z09 Cervical intraepithelial neoplasia grade III with severe dysplasia 616234463 D06.9 [id number] DO Jose E Dorsey AGRICULTURAL COMMODITIES INSPECTOR [address] [place] [address] MAURICE Man [address] 7 05/21/2022 13:57:29 05/21/2022 14:56:25 Surgical follow-up 644257847 Z09 Candidiasis of skin 4988 3006 B37.2 [id number] CASSIUS Matt AGRICULTURAL COMMODITIES INSPECTOR [address] [place] [address] MAURICE Man [address] 7 07/22/2023 16:03:21 07/22/2023 17:13:03 Screening for malignant neoplasm of cervix 846700891 Z12.4 Z11.8 History of tubal ligation 339682640 Z98.51 History of dysplasia of cervix 123985144 Z87.410 JERED 3 in 2021 Dyspareunia 99558187 N94 .10 Menopausal syndrome 1237 13296 N95.9 Cigarette smoker 3146280 7 F17.210 Tobacco use discourage d. Techniques for quitting smoking discussed including pharmaceut icals (Nicotine patches, gum, Zyban, and Chantix) and behavioral therapy (Otoniel Juan Pablo). Immediate and [facility] cardiovasc ular and respirator y benefits of smoking cessation discussed. Lung cancer risk reduction also discussed. History of hepatitis B 418861158 Z86.19 History of malignant neoplasm of thyroid 183496390 Z85.745 [id number] Vincent Mayer MD [place] [address] [place] [place] [address] 10/14/2023 09:10:06 10/14/2023 10:42:44 Abdominal pain 39912079 R10.9 XR showed significan t constipati on [id number] Vincent Mayer MD [address] [place] [address] 10/16/2023 10:36:23 10/16/2023 12:43:15 Menometrorrhagia 661118236 N92.1 [id number] Vincent Mayer MD [address] [place] [address] 11/04/2023 16:42:17 11/04/2023 17:44:28 Abdominal pain 02213579 R10.9 Pt is following with ObGyn at this time; imaging reviewed with Pt; no anatomic abnormalit ies at this time. Will continue to follow closely. [id number] MD Jose E Ortiz AGRICULTURAL COMMODITIES INSPECTOR [address] [place] [address] [place] [address] 11/13/2023 13:41:41 11/13/2023 14:29:43 History of dysplasia of cervix 549276336 Z87.410 Contact de rmatitis caused by urushiol from [place] 695414085 L25.5 Postmenopa usal bleeding 85998701 N95.0 Screening for malignant neoplasm of colon 402622038 Z12.11 Screening for malignant neoplasm of breast 087054500 Z12.39 [id number] Vincent Mayer MD [address] [place] [address] 12/19/2023 16:23:07 12/31/2023 14:36:58 Pain due to neoplastic disease 2074209030 9102 G89.3 [id number] Vincent Mayer MD [address] [place] [address] 01/02/2024 09:11:10 01/02/2024 10:29:44 Malignant neoplasm of thyroid gland 242250214 C73 actively following with Onc; chemo regimen to be decided in the next 2 weeks. Pain due t o neoplastic disease 3430388089 9102 G89.3 Long-term drug therapy 447593944 Z79.113 [id number] Vincent Mayer MD [address] [place] [address] 01/12/2024 13:57:05 01/12/2024 15:40:14 Pain due to neoplastic disease 1349200097 9102 G89.3 Chemotherapy 998454308 Z 51.11 [id number] Vincent Mayer MD [address] [place] [address] 02/02/2024 16:30:31 02/04/2024 11:43:12 Chemotherapy 876065835 Z51.11 Pt tolerated well [id number] Vincent Mayer MD [address] [place] [address] 02/20/2024 14:34:57 02/20/2024 14:53:38 Influenza vaccine needed 8981259242 106 Z23 [id number] Vincent Mayer MD [address] [place] [address] 03/04/2024 16:42:19 03/04/2024 17:02:28 Asthma 198878066 J45.909 Pain due t o neoplastic disease 5778047083 9102 G89.3 [id number] Vincent Mayer MD [address] [place] [address] 03/25/2024 09:58:39 03/25/2024 10:35:14 Pain due to neoplastic disease 0535613131 9102 G89.3 Chronic anxiety 70790236 9 F41.9 [id number] Vincent Mayer MD [address] [place] [address] 05/27/2024 13:32:48 05/27/2024 14:48:25 Chronic back pain 061444103 G89.29 Pain due t o neoplastic disease 5282486627 9102 G89.3 [id number] Vincent Mayer MD [facility] [address] [address] 06/18/2024 16:04:50 06/18/2024 16:45:54 Bronchitis 66894208 J40 Pain due t o neoplastic disease 6087905737 9102 G89.3 refill requested so Pt does not have to return in 4 days Health Concerns Section Related Observation LastModified by Organization Detai ls LastModified Time None Recorded Concern Status LastModified by Organization Details LastModified Time None Recorded Advance Directives Directive N: Payers Insurance Date Sequence Insurance Name Policy Number Policy Bernard Covered Member ID Bernard Member ID Guarantor Name 07/22/[address] [facility] (MEDICAID REPLACEMENT - HMO) Latrice Finnegan [id number] Latrice Finnegan 05/19/2020 1 *SELF PAY* [place] kervin Finnegan 04/19/2022 1 [place] [id number] Latrice Finnegan [id number] Latrice Finnegan 06/18/2024 1 [place] [id number] Latrice Finnegan [id number] Latrice Finnegan 06/29/2024 1 [facility] Latrice Finnegan [id number] Latrice Finnegan 06/29/2024 [facility] (MEDICAID REPLACEMENT - HMO) [facility] Latrice Finnegan [id number] Latrice Finnegan 06/30/2024 [place] [facility] WRAP [place] (MEDICAID) Latrice Finnegan [id number] Latrice Finnegan 08/22/2020 1 UNSPECIFIED REMIT PAYOR [...] appropriate. Vincent Mayer MD [address], [place], [address], [place] [facility] 03/25/2024 13:30:14 03/25/2024 text/html Pt [...] appropriate. Vincent Mayer MD [address], [place], [address], [facility] - [facility] 03/25/2024 10:46:47 05/27/2024 text/html ROS as noted in the HPI Pt presents for f/u opiate therapy for [...] appropriate. Vincent Mayer MD [address], [place], [address], [facility] - [facility] 05/27/2024 14:40:14 06/18/2024 text/html Pt [...] multiple sick contacts. Vincent Mayer MD [address], [place], [address], [facility] - [facility] 06/18/2024 18:36:50 OBGyn Episode No OBEpisode recorded.
--- OUTSIDE RECORDS SUMMARY | 2025-01-25 08:59 | XMS_ITS | Encounter Summary ---
Author Organization Healthcare Address [address] [place] [address] Care Team Providers Care Tax Services Professional Name Role Phone Sergey Oh MD Primary Care Provider [phone] Jean Mak MD Unavailable [phone] Encounter Details Date Type Department Care Team [...] EST Appointment [facility] Nuclear Medicine [address] [place] [address] 01/31/2025 2:30 PM EST Appointment [facility] Nuclear Medicine [address] [place] [address] 03/10/2025 8:00 AM EST Appointment [facility] G Radiology [address] [place] [address] 03/10/2025 10:50 AM EST Clinical Support [facility] [address] [place] [address] 03/10/2025 11:00 AM EST Office Visit [facility] [address] [place] [phone] Edison Skaggs MD [address] [place] [address] 06/29/2025 12:30 PM EDT Clinical Support [facility] [address] [place] [address] 06/29/2025 1:00 PM EDT Office Visit [facility] [address] [place] [address] Danny Coon MD [address] [phone] documented as of this encounter Visit Diagnoses [...] documented as of this encounter Care Teams Tax Services Professional Relationship Specialty Start Date End Date Sergey Oh MD PCP - General 11/13/21 Jean Mak MD 800 [facility] Cancer [address] [address] Surgeon Otolaryngology 11/21/21 documented as of this encounter
--- OUTSIDE RECORDS SUMMARY | 2025-01-25 08:59 | XMS_ITS | Encounter Summary ---
Author Organization Healthcare Address [address] [place] [address] Care Team Providers Care Client Analyst Name Role Phone Pcp, No Primary Care Provider Sergey Oswald MD Primary Care Provider [phone] Jean Mak MD Unavailable [phone] Encounter Details Date Type Department Care Team (Late Contact Info) Description 06/30/2020 Orders Only External Location [address] [place] [address] Provider, External Social History Tobacco Use Types [...] EST Appointment [facility] Nuclear Medicine [address] [place] [address] 01/31/2025 2:30 PM EST Appointment [facility] Nuclear Medicine [address] [place] [address] 03/10/2025 8:00 AM EST Appointment [facility] Radiology [address] [place] [phone] 03/10/2025 10:50 AM EST Clinical Support [facility] [address] [place] [address] 03/10/2025 11:00 AM EST Office Visit [facility] [address] [place] [address] Edison Skaggs MD 800 [place] [address] 06/29/2025 12:30 PM EDT Clinical Support [facility] [address] [address] 06/29/2025 1:00 PM EDT Office Visit [facility] [address] [phone] Danny Coon MD [address] [phone] documented as of this encounter Procedures Procedure [...] on filedocumented in this encounter Care Teams Client Analyst Relationship Specialty Start Date End Date Pcp, No 800 [place] [address] PCP - General Family Medicine 03/31/21 11/12/21 Sergey Oh MD [address] [place] [address] PCP - General 11/13/21 Jean Mak MD [address] [place] [address] [facility] [address] [place] [phone] Surgeon Otolaryngology 11/21/21 documented as of this encounter
--- OUTSIDE RECORDS SUMMARY | 2025-01-25 08:59 | XMS_ITS | Encounter Summary ---
Author Organization Healthcare Address [address] [place] [address] Care Team Providers Care Otr Owner Operator Truck Driver Name Role Phone Sergey Oh MD Primary Care Provider [phone] Jean Mak MD Unavailable [phone] Encounter Details Date Type Department Care Team (Late st Contact Info) Description 12/13/2023 Orders Only External Location [address] [place] [address] Provider, External Social History Tobacco Use Types [...] Upcoming Encounters Date Type Department Care Team ([facility] st Contact Info) Description 01/31/2025 12:15 PM EST Appointment [facility] Nuclear Medicine [address] [place] [address] 01/31/2025 2:30 PM EST Appointment [facility] Nuclear Medicine [address] [place] [address] 03/10/2025 8:00 AM EST Appointment [facility] Radiology [address] [place] [address] 03/10/2025 10:50 AM EST Clinical Support [facility] [address] [place] [address] 03/10/2025 11:00 AM EST Office Visit [facility] [address] [place] [address] Edison Skaggs MD 800 [place] [address] 06/29/2025 12:30 PM EDT Clinical Support [facility] [address] [place] [address] 06/29/2025 1:00 PM EDT Office Visit [facility] [address] [place] [address] Danny Coon MD [address] [phone] documented as of this encounter Procedures Procedure [...] documented as of this encounter Care Teams Otr Owner Operator Truck Driver Relationship Specialty Start Date End Date Sergey Oh MD PCP - General 11/13/21 Jean Mak MD 800 [facility] Cancer [address] [phone] Surgeon Otolaryngology 11/21/21 documented as of this encounter
--- OUTSIDE RECORDS SUMMARY | 2025-01-25 08:59 | XMS_ITS | Encounter Summary ---
Author Organization Healthcare Address [address] [place] [address] Care Team Providers Care Pier Hand Helper Name Role Phone Sergey Oh MD Primary Care Provider [phone] Jean Mak MD Unavailable [phone] Encounter Details Date Type Department Care Team (Late st Contact Info) Description 01/03/2025 Telephone [facility] [address] [place] [address] Edison Skaggs MD 800 [place] [address] Social History Tobacco Use Types [...] optimal time of day to reach caller: [phone] Note: Please do not reply to this message. Follow-up communication and further actions as a result of this message need to be communicated with the patient directly, if the patient is not active onMyChart. If the patient is active on MyChart, they will receive notification of the communication/outcome via [employer]. documented in this encounter Plan of Treatment Upcoming Encounters Date Type Department Care Team (Late st Contact Info) Description 01/31/2025 12:15 PM EST Appointment [facility] Nuclear Medicine 800 [place] [address] 01/31/2025 2:30 PM EST Appointment [facility] Nuclear Medicine [address] [place] [address] 03/10/2025 8:00 AM EST Appointment [facility] Radiology [address] [place] [address] 03/10/2025 10:50 AM EST Clinical Support [facility] [address] [place] [phone] 03/10/2025 11:00 AM EST Office Visit [facility] [address] [place] [phone] Edison Skaggs MD 800 [place] [address] 06/29/2025 12:30 PM EDT Clinical Support [facility] [address] [phone] 06/29/2025 1:00 PM EDT Office Visit [facility] [address] [place] [phone] Danny Coon MD [address] [address] documented as of this encounter [...] documented as of this encounter Care Teams Pier Hand Helper Relationship Specialty Start Date End Date Sergey Oh MD PCP - General 11/13/21 Jean Mak MD [address] [place] [address] [phone] Surgeon Otolaryngology 11/21/21 documented as of this encounter
--- OUTSIDE RECORDS SUMMARY | 2025-01-25 08:59 | XMS_ITS | Encounter Summary ---
Author Organization Healthcare Address [address] [place] [address] Care Team Providers Care Clinical Research Manager Name Role Phone Pcp, No Primary Care Provider Sergey Oswald MD Primary Care Provider [phone] Jean Mak MD Unavailable Encounter Details Date Type Department Care Team (Late Contact Info) Description 07/05/2020 Orders Only External Location [address] [place] [phone] Provider, External Social History Tobacco Use Types [...] EST Appointment [facility] Nuclear Medicine [address] [place] [phone] 01/31/2025 2:30 PM EST Appointment [facility] Nuclear Medicine [address] [place] [address] 03/10/2025 8:00 AM EST Appointment [facility] Radiology [address] [place] [phone] 03/10/2025 10:50 AM EST Clinical Support [facility] [address] [place] [address] 03/10/2025 11:00 AM EST Office Visit [facility] [address] [place] [phone] Edison Skaggs MD 800 [place] [address] 06/29/2025 12:30 PM EDT Clinical Support [facility] [address] [address] 06/29/2025 1:00 PM EDT Office Visit [facility] [address] [phone] Danny Coon MD [address] [phone] documented as of this encounter Procedures Procedure [...] filedocumented in this encounter Care Teams Clinical Research Manager Relationship Specialty Start Date End Date Pcp, No 800 [place] [address] PCP - General Family Medicine 03/31/21 11/12/21 Sergey Oh MD [address] [place] [address] PCP - General 11/13/21 Jean Mak MD [address] [place] [address] [facility] [address] [place] [phone] Surgeon Otolaryngology 11/21/21 documented as of this encounter
--- OUTSIDE RECORDS SUMMARY | 2025-01-25 08:59 | XMS_ITS | Encounter Summary ---
Author Organization Healthcare Address [address] [place] [address] Care Team Providers Care Keel Press Operator Name Role Phone Sergey Oh MD Primary Care Provider [phone] Jean Mak MD Unavailable [phone] Encounter Details Date Type Department Care Team (Late st Contact Info) Description 01/19/2025 Orders Only [facility] Hematology/BMT and Cellular Therapy Program [address] [place] [address] [place] [address] Edison Skaggs MD 800 [place] [address] Malignant neoplasm of ascending colon [...] EST Appointment [facility] Nuclear Medicine 800 [place] [address] 01/31/2025 2:30 PM EST Appointment [facility] Nuclear Medicine 800 [place] [address] 03/10/2025 8:00 AM EST Appointment [facility] G Radiology [address] [place] [address] 03/10/2025 10:50 AM EST Clinical Support [facility] [address] [place] [phone] 03/10/2025 11:00 AM EST Office Visit [facility] [address] [place] [phone] Edison Skaggs MD [address] [place] [address] 06/29/2025 12:30 PM EDT Clinical Support [facility] [address] [place] [phone] 06/29/2025 1:00 PM EDT Office Visit [facility] [address] [place] [phone] Danny Coon MD [address] [phone] Scheduled Orders Name Type Priority Associated Diagnoses [...] documented as of this encounter Care Teams Keel Press Operator Relationship Specialty Start Date End Date Sergey Oh MD PCP - General 11/13/21 Jean Mak MD 800 [facility] Cancer [address] [address] Surgeon Otolaryngology 11/21/21 documented as of this encounter
--- OUTSIDE RECORDS SUMMARY | 2025-01-25 08:59 | XMS_ITS | Encounter Summary ---
Author Organization Healthcare Address [address] [place] [address] Care Team Providers Care Entry Level Programmer Name Role Phone Sergey Oh MD Primary Care Provider [phone] Jean Mak MD Unavailable [phone] Encounter Details Date Type Department Care Team (Late st Contact Info) Description 12/06/2023 Orders Only External Location [address] [place] [address] Provider, External Social History Tobacco Use Types [...] Upcoming Encounters Date Type Department Care Team ([facility] st Contact Info) Description 01/31/2025 12:15 PM EST Appointment [facility] Nuclear Medicine [address] [place] [address] 01/31/2025 2:30 PM EST Appointment [facility] Nuclear Medicine [address] [place] [address] 03/10/2025 8:00 AM EST Appointment [facility] G Radiology [address] [place] [address] 03/10/2025 10:50 AM EST Clinical Support [facility] [address] [place] [phone] 03/10/2025 11:00 AM EST Office Visit [facility] [address] [place] [phone] Edison Skaggs MD 800 [place] [address] 06/29/2025 12:30 PM EDT Clinical Support [facility] [address] [address] 06/29/2025 1:00 PM EDT Office Visit [facility] [address] [place] [phone] Danny Coon MD [address] [phone] documented as of this encounter Procedures Procedure [...] documented as of this encounter Care Teams Entry Level Programmer Relationship Specialty Start Date End Date Sergey Oh MD PCP - General 11/13/21 Jean Mak MD 800 [facility] Cancer [address] [address] Surgeon Otolaryngology 11/21/21 documented as of this encounter
--- OUTSIDE RECORDS SUMMARY | 2025-01-25 08:59 | XMS_ITS | Encounter Summary ---
Author Organization [facility] Address [address] 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 Procedures NM Bone Scan Whole Body Danny Coon MD [address] [address] Phone: tel: fax: Referral ID Status Reason Start Date Expiration Date V isits Requested Visits Authorized [id number] Authorized 01/12/2025 07/14/2026 2 2 Encounter Details Date Type Department Care Team ([facility] Contact Info) Description 10/06/2024 Results Follow-Up Pav CC Head, Neck & Respiratory 800 [facility], 2nd [place] [phone] Danny Coon MD [address] [facility] [address] [place] [address] Social History Tobacco Use Types [...] PM EST Appointment PAV H Nuclear Medicine [address] [place] [phone] 01/31/2025 2:30 PM EST Appointment P[facility] H Nuclear Medicine [address] [place] [phone] 03/10/2025 8:00 AM EST Appointment PAV G Radiology [address] [place] [phone] 03/10/2025 10:50 AM EST Clinical Support [facility] [address] [place] [phone] 03/10/2025 11:00 AM EST Office Visit [facility] [address] [place] [phone] Edison Skaggs MD 800 [place] [address] 06/29/2025 12:30 PM EDT Clinical Support Pav [facility] Head, Neck & Respiratory [address] [place] [phone] 06/29/2025 1:00 PM EDT Office Visit Pav CC Head, Neck & Respiratory [address] [place] [phone] Danny Coon MD [address] [place] [phone] Scheduled Orders Name Type Priority Associated Diagnoses [...] documented as of this encounter Care Teams Tc Operator Relationship Specialty Start Date End Date Sergey Oh MD PCP - General 11/13/21 Jean Mak MD 800 [facility] Cancer [address] [address] Surgeon Otolaryngology 11/21/21 documented as of this encounter
--- OUTSIDE RECORDS SUMMARY | 2025-01-25 08:59 | XMS_ITS | Encounter Summary ---
Author Organization Healthcare Address [address] [place] [address] Care Team Providers Care Circle Cutting Saw Operator Name Role Phone Pcp, No Primary Care Provider Sergey Oswald MD Primary Care Provider [phone] Jean Mak MD Unavailable [phone] Encounter Details Date Type Department Care Team (Late Contact Info) Description 08/11/2020 Orders Only External Location 800 [place] [phone] Provider, External Social History Tobacco Use Types [...] EST Appointment [facility] H Nuclear Medicine 800 [place] [phone] 01/31/2025 2:30 PM EST Appointment [facility] H Nuclear Medicine 800 [place] [address] 03/10/2025 8:00 AM EST Appointment P[facility] G Radiology [address] [place] [phone] 03/10/2025 10:50 AM EST Clinical Support [facility] [address] [place] [address] 03/10/2025 11:00 AM EST Office Visit [facility] [address] [place] [phone] Edison Skaggs MD 800 [place] [address] 06/29/2025 12:30 PM EDT Clinical Support Pav [facility] Head[facility] Neck & Respiratory [address] [phone] 06/29/2025 1:00 PM EDT Office Visit Pav [facility] Head, Neck & Respiratory [address] [phone] Danny Coon MD [address] [phone] documented as of this encounter Procedures Procedure [...] on filedocumented in this encounter Care Teams Circle Cutting Saw Operator Relationship Specialty Start Date End Date Pcp, No 800 [place] [address] PCP - General Family Medicine 03/31/21 11/12/21 Sergey Oh MD [address] [place] [address] PCP - General 11/13/21 Jean Mak MD [address] [place] [address] [facility] [address]nd [place] [address] Surgeon Otolaryngology 11/21/21 documented as of this encounter
--- OUTSIDE RECORDS SUMMARY | 2025-01-25 08:59 | XMS_ITS | Encounter Summary ---
Author Organization Healthcare Address [address] [place] [address] Care Team Providers Care Transition Program Manager Name Role Phone Sergey Oh MD Primary Care Provider [phone] Jean Mak MD Unavailable [phone] Encounter Details Date Type Department Care Team (Late st Contact Info) Description 12/13/2023 Orders Only External Location 800 [place] [address] Provider, External Social History Tobacco Use Types [...] Upcoming Encounters Date Type Department Care Team ([facility] st Contact Info) Description 01/31/2025 12:15 PM EST Appointment P[facility] H Nuclear Medicine 800 [place] [address] 01/31/2025 2:30 PM EST Appointment [facility] H Nuclear Medicine 800 [place] [address] 03/10/2025 8:00 AM EST Appointment P[facility] G Radiology [address] [place] [address] 03/10/2025 10:50 AM EST Clinical Support [facility] [address] [place] [phone] 03/10/2025 11:00 AM EST Office Visit [facility] [address] [place] [phone] Edison Skaggs MD 800 [place] [address] 06/29/2025 12:30 PM EDT Clinical Support Pav [facility] Head[facility] Neck & Respiratory [address] [place] [phone] 06/29/2025 1:00 PM EDT Office Visit Pav [facility] Head, Neck & Respiratory [address] [place] [phone] Danny Coon MD [address] [phone] documented as of this encounter Procedures Procedure [...] documented as of this encounter Care Teams Transition Program Manager Relationship Specialty Start Date End Date Sergey Oh MD PCP - General 11/13/21 Jean Mak MD [address] [facility] Cancer [address] [address] Surgeon Otolaryngology 11/21/21 documented as of this encounter
--- OUTSIDE RECORDS SUMMARY | 2025-01-25 08:59 | XMS_ITS | Encounter Summary ---
Author Organization Healthcare Address [address] [place] [address] Care Team Providers Care Lobby Porter Name Role Phone Sergey Oh MD Primary Care Provider [phone] Jean Mak MD Unavailable [phone] Encounter Details Date Type Department Care Team (Late st Contact Info) Description 12/11/2023 Orders Only External Location 800 [place] [address] Provider, External Social History Tobacco Use Types [...] Upcoming Encounters Date Type Department Care Team ([facility] st Contact Info) Description 01/31/2025 12:15 PM EST Appointment P[facility] H Nuclear Medicine 800 [place] [address] 01/31/2025 2:30 PM EST Appointment P[facility] H Nuclear Medicine 800 [place] [address] 03/10/2025 8:00 AM EST Appointment PAV G Radiology [address] [place] [address] 03/10/2025 10:50 AM EST Clinical Support [facility] [address] [place] [phone] 03/10/2025 11:00 AM EST Office Visit [facility] [address] [place] [phone] Edison Skaggs MD 800 [place] [address] 06/29/2025 12:30 PM EDT Clinical Support Pav [facility] Head, Neck & Respiratory [address] [place] [phone] 06/29/2025 1:00 PM EDT Office Visit Pav CC Head, Neck & Respiratory [address] [place] [phone] Danny Coon MD [address] [phone] documented as of this encounter Procedures Procedure [...] documented as of this encounter Care Teams Lobby Porter Relationship Specialty Start Date End Date Sergey Oh MD PCP - General 11/13/21 Jean Mak MD 800 [facility] Cancer [address] [address] Surgeon Otolaryngology 11/21/21 documented as of this encounter
--- OUTSIDE RECORDS SUMMARY | 2025-01-25 08:59 | XMS_ITS | Encounter Summary ---
Author Organization Healthcare Address [address] [place] [address] Care Team Providers Care Resident Services Manager Name Role Phone Pcp, No Primary Care Provider Sergey Oswald MD Primary Care Provider [phone] Jean Mak MD Unavailable [phone] Encounter Details Date Type Department Care Team (Late Contact Info) Description 05/22/2021 Orders Only External Location 800 [place] [phone] Provider, External Social History Tobacco Use Types [...] EST Appointment [facility] H Nuclear Medicine 800 [place] [phone] 01/31/2025 2:30 PM EST Appointment [facility] H Nuclear Medicine 800 [place] [address] 03/10/2025 8:00 AM EST Appointment PAV G Radiology [address] [place] [phone] 03/10/2025 10:50 AM EST Clinical Support [facility] 800 [place] [address] 03/10/2025 11:00 AM EST Office Visit [facility] 800 [place] [phone] Edison Skaggs MD 800 [place] [address] 06/29/2025 12:30 PM EDT Clinical Support Pav [facility] Head, Neck & Respiratory [address] [phone] 06/29/2025 1:00 PM EDT Office Visit Pav CC Head, Neck & Respiratory [address] [phone] Danny Coon MD [address] [phone] documented as of this encounter Procedures Procedure [...] on filedocumented in this encounter Care Teams Resident Services Manager Relationship Specialty Start Date End Date Pcp, No 800 [place] [address] PCP - General Family Medicine 03/31/21 11/12/21 Sergey Oh MD [address] [place] [address] PCP - General 11/13/21 Jean Mak MD [address] [place] [address] [facility] [address]nd [place] [address] Surgeon Otolaryngology 11/21/21 documented as of this encounter
--- OUTSIDE RECORDS SUMMARY | 2025-01-25 08:59 | XMS_ITS | Clinical Summary ---
Author Organization Healthcare Address [address] [place] [address] Care Team Providers Care Campaign Consultant Name Role Phone Sergey Oh MD Primary Care Provider [phone] Jean Mak MD Unavailable [phone] Allergies No known active allergies Medications albuterol 108 (90 Base) MCG/ACT inhaler INHALE 2 PUFFS BY MOUTH FOUR TIMES DAILY NEEDED FOR SHORTNESS OF BREATH OR WHEEZING 024 Active HYDROcodone-aceta minophen ([place]) 7.5-325 MG tablet TAKE ONE (1) TABLET [...] 10 MG tablet Active ergocalciferol 1.25 MG (90971 UT) capsule TAKE ONE (1) CAPSULE BY MOUTH ONE (1) TIME PER WEEK. 12 capsule 3 025 Active docusate sodium (Colace) 100 MG capsule take one (1) capsule by mouth once daily Active levothyroxine (Synthroid, Levoxyl) 125 MCG tablet Take 1 tablet by mouth daily. 90 tablet 1 025 Active OLANZapine zydis (ZyPREXA ZYDIS) 5 MG [...] daily. 90 tablet 1 025 2024 Discontinued(R eotraceeer) Active Problems Problem Noted Date Diagnosed Date [...] Care Team Description 01/19/2025 Orders Only PAV Hematology/BMT and Cellular Therapy Program [address] [place] [address] Edison Sakggs MD Malignant neoplasm of ascending colon (CMS/HCC) (Primary Dx) 01/11/2025 2:33 PM EDT - 01/11/2025 11:59 PM EDT Hospital Encounter [facility] 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); Multiple lung nodules on CT; Post-surgical hypothyroidism; Vitamin D deficiency; Elevated alkaline phosphatase level 12/29/2024 Travel 12/23/2024 11:00 AM EDT Clinical Support [facility] 800 [place] [address] History of colon cancer, stage II 12/23/2024 11:00 AM EDT Office Visit [facility] 800 [place] [phone] Edison Skaggs MD History of colon cancer, stage II (Primary Dx) 12/23/2024 Travel 12/17/2024 Refill Pav CC Head, Neck & Respiratory 800 [facility], 2nd [place] [phone] Danny Coon MD from Last 3 Months [...] kg (152 lb 8.9 oz) 12/29/2024 1:08 PM EDT Height 157.5 cm (5' 2.01 ) 12/23/2024 11:38 AM E DT Body Mass Index 27.9 12/23/2024 11:38 AM EDT Plan of Treatment Upcoming Encounters Date Type Department Care Team (Late st Contact Info) Description 01/31/2025 12:15 PM EST Appointment PAV H Nuclear Medicine 800 [place] [address] 01/31/2025 2:30 PM EST Appointment P[facility] H Nuclear Medicine 800 [place] [address] 03/10/2025 8:00 AM EST Appointment PAV G Radiology [address] [place] [address] 03/10/2025 10:50 AM EST Clinical Support [facility] Multidisciplinary Oncology Clinic [address] [place] [phone] 03/10/2025 11:00 AM EST Office Visit [facility] Multidisciplinary Oncology Clinic 800 [place] [address] Edison Skaggs MD 800 [place] [address] 06/29/2025 12:30 PM EDT Clinical Support Pav CC Head, Neck & Respiratory 800 [facility], 2nd [place] [address] 06/29/2025 1:00 PM EDT Office Visit Pav CC Head, Neck & Respiratory 800 [facility], 2nd [place] [phone] Danny Coon MD [address] [place] [address] Health Maintenance Due Date Last Done Comments [facility]-HIV Screening 1978 [facility]-/Child/Adol SDOH Screenings 1978 [facility]- SDOH Screenings 1996 [facility]-Adult SDOH Screenings 1996 [facility]-Hepatitis B Vaccines (1 of 3 - 19+ 3-dose series) 1997 09/29/2024, 06/21/2024, 06/21/2024, Additional history exists [facility]-Zoster Vaccines (1 of 2) 1997 [facility]-Pap Smear 1999 [facility]-Cervical Cancer Screening 2008 [facility]-HPV/Cotest 2008 [facility]-ASVSZ-66 Vaccine (2 - Moderna risk series) 12/14/2021 [...] this topic Medical Devices Implanted Type Area Or Scrub Tech Device Identifier Shelf Expiration Date Model / Serial / Lot Port Clearvue Power 8fr - [id number] Implanted:Qt y: 1 on 01/22/2024 by Clay in, Whitney Smith MD at [facility] Catheter Right: Subclavian Bard Peripherial Vascular-[id number] MEDIPORT 05/28/2025 [id number] / [id number] Procedures Procedure Name Priority Date/Time Associated Diagnosis [...] Total DLP (Dose-Length Product): 576.01 mGy.cm (accession [id number]), 576.01 mGy.cm (accession [id number]) Please note: The reported value represents the [...] Total DLP (Dose-Length Product): 576.01 mGy.cm (accession [id number]),576.01 mGy.cm (accession [id number]) Please note: The reported valuerepresents the total [...] cm (previously subcentimeter, series 3 image 118 [email or web address]). A right common iliac lymph node measures [...] Total DLP (Dose-Length Product): 576.01 mGy.cm (accession [id number]), 576.01 mGy.cm (accession [id number]) Please note: The reported value represents the [...] Total DLP (Dose-Length Product): 576.01 mGy.cm (accession [id number]),576.01 mGy.cm (accession [id number]) Please note: The reported valuerepresents the total [...] cm (previously subcentimeter, series 3 image 118 [id number]). A right common iliac lymph node measures [...] - 120 U/L 01/02/2025 1:[address] [facility] ([facility]) ALKALINE PHOSPHATASE BONE CALC 62(H) 0 - 55 U/L 01/02/2025 1:[address] [facility] ([facility]) ALKALINE PHOSPHATASE LIVER CALC 101(H) 0 - 94 U/L 01/02/2025 1:[address] [facility] ([facility]) ALKALINE PHOSPHATASE OTHER CALC 0 U/L 01/02/2025 1:[address] [facility] ([facility]) Blood Blood sample taken from central line / Unknown (Port) Long-term Catheter / Unknown 12/29/2024 1:51 PM EDT 12/29/2024 5:[address] [facility] ([facility]) - 01/02/2025 1:09 AM EDT INTERPRETIVE INFORMATION: Alk-Phosphatase Liver Calc Bone Specific Alkaline Phosphatase (8319630) and 5'-nucleotidase (6870110) may be useful in identifying disorders of bone and liver, respectively. This test was developed and its performance characteristics determined by [facility]. It has not been cleared or approved by the U.S. Food and Drug Administration. This test was performed in a CLIA-certified laboratory and is intended for clinical purposes. Performed By: [facility] [address] [place] [address] Sap Bw Architect: Jose Gan MD, PhD CLIA Number: [id number] Danny Coon MD LAB BLOOD ORDERABLES Final Resu lt [facility] ([facility] [address] [place] [address] * (ABNORMAL) Thyroid Stimulating Hormone, Plasma (12/29/2024 1:51 PM EDT) Thyroid Stimulating Hormone, Plasma 0.01(L) 0.40 - 4.20 uIU/mL 12/29/2024 3:18 PM EDT [facility] Blood Blood sample taken from central line / Unknown (Port) Long-term Catheter / Unknown 12/29/2024 1:51 PM EDT 12/29/2024 2:36 PM EDT Narrative [facility] - 12/29/2024 3:18 PM EDT Trimester Specific Ranges TSH ( IU/mL) 1st Trimester 0.1 - 3.0 2nd Trimester 0.19 - 4.06 3rd Trimester 0.3 - 3.7 us Danny Coon MD LAB BLOOD ORDERABLES Final Resu lt Performing Organization Address [facility]/ZIP Co de Phone Number [facility] [address] [place] [address] * Free T4, Plasma (12/29/2024 1:51 PM EDT) Free T4, Plasma 1.5 0.8 - 1.7 ng/dL 12/29/2024 3:18 PM EDT [facility] Blood Blood sample taken from central line / Unknown (Port) Long-term Catheter / Unknown 12/29/2024 1:51 PM EDT 12/29/2024 2:36 PM EDT Narrative [facility] - 12/29/2024 3:18 PM EDT Free T4 Trimester Specific Ranges 1st Trimester 0.9 - 1.50 ng/dL 2nd Trimester 0.7 - 1.40 ng/dL 3rd Trimester 0.7 - 1.24 ng/dL us Danny Coon MD LAB BLOOD ORDERABLES Final Resu lt [facility] [address] [place] [address] * (ABNORMAL) CEA (12/23/2024 10:57 AM EDT) CEA, Serum 16.6(H) <4.0 ng/mL 12/23/2024 12:25 PM EDT [facility] Blood Venous blood specimen / Unknown (Port) Long-term Catheter / Unknown 12/23/2024 10:57 AM EDT 12/23/2024 11:44 AM EDT Narrative [facility] - 12/23/2024 12:25 PM EDT Normal range for smokers: < 5.5 ng/ml Normal range for non-smokers: <=4.0 ng/ml Performed by [facility] electrochemiluminescent immunoassay. Results obtained with different test methods or kits cannot be used interchangeably. us Broderick Taylor MD LAB BLOOD ORDERABLES Final R esult Performing Organization Address City/[facility] Co de Phone Number [facility] [address] [place] [address] * (ABNORMAL) Hepatitis panel, acute (11/02/2021 2:42 PM EDT) Hepatitis B Surf Antigen Positive(A) Negative 11/02/2021 6:08 PM EDT [facility] Hepatitis C Antibody Negative Negative 11/02/2021 6:08 PM EDT [facility] Hepatitis A Antibody IgM Negative Negative 11/02/2021 6:08 PM EDT [facility] Hepatitis B Core Antibody IgM Negative Negative 11/02/2021 6:08 PM EDT [facility] Blood Venous blood specimen / Unknown Venipuncture / Unknown 11/02/2021 2:42 PM EDT 11/02/2021 2:50 PM EDT us Jean Mak MD LAB BLOOD ORDERABLES Final R esult Performing Organization Address City/[facility]/ZIP Co de Phone Number [facility] [address] [place] [address] from Last 3 Months or Most Recently Relevant to Health Maintenance Insurance [facility] MEDICAID Advance Directives * Full Code (Latest Code Status on File) Date Activated Date Inactivated Comments 12/10/2021 3:22 PM 12/11/2021 9:56 PM Question Answer Comments Patient has decision-making capacity? Yes Care Teams Campaign Consultant Relationship Specialty Start Date End Date Sergey Oh MD PCP - General 11/13/21 Jean Mak MD 800 [facility] Cancer [address] [address] Surgeon Otolaryngology 11/21/21
--- OUTSIDE RECORDS SUMMARY | 2025-01-25 08:59 | XMS_ITS | Encounter Summary ---
Author Organization Healthcare Address [address] [place] [address] Care Team Providers Care Facilities Operations Technician Name Role Phone Sergey Oh MD Primary Care Provider Jean Mak MD Unavailable [phone] Encounter Details Date Type Department Care Team (Late st Contact Info) Description 12/06/2023 Orders Only External Location [address] [place] [address] Provider, External Social History Tobacco Use Types [...] EST Appointment [facility] H Nuclear Medicine [address] [place] [address] 01/31/2025 2:30 PM EST Appointment P[facility] H Nuclear Medicine [address] [place] [address] 03/10/2025 8:00 AM EST Appointment PAV G Radiology [address] [place] [address] 03/10/2025 10:50 AM EST Clinical Support [facility] [address] [place] [phone] 03/10/2025 11:00 AM EST Office Visit [facility] [address] [place] [phone] Edison Skaggs MD 800 [place] [address] 06/29/2025 12:30 PM EDT Clinical Support [facility] Head, Neck & Respiratory [address] [place] [phone] 06/29/2025 1:00 PM EDT Office Visit Pav CC Head, Neck & Respiratory [address] [place] [phone] Danny Coon MD [address] [phone] documented as of this encounter Procedures Procedure [...] documented as of this encounter Care Teams Facilities Operations Technician Relationship Specialty Start Date End Date Sergey Oh MD PCP - General 11/13/21 Jean Mak MD 800 [facility] [address] [address] Surgeon Otolaryngology 11/21/21 documented as of this encounter
--- OUTSIDE RECORDS SUMMARY | 2025-01-25 08:59 | XMS_ITS | Encounter Summary ---
Author Organization Healthcare Address [address] [place] [address] Care Team Providers Care Architecture Faculty Member Name Role Phone Sergey Oh MD Primary Care Provider [phone] Jean Mak MD Unavailable [phone] Encounter Details Date Type Department Care Team (Late st Contact Info) Description 10/06/2024 Results Follow-Up [facility] [address], 2nd [place] [phone] Danny Coon MD 2195 [facility] 125 [place] [address] Social History Tobacco Use Types [...] Upcoming Encounters Date Type Department Care Team ([facility] st Contact Info) Description 01/31/2025 12:15 PM EST Appointment [facility] Nuclear Medicine [address] [place] [address] 01/31/2025 2:30 PM EST Appointment [facility] Nuclear Medicine [address] [place] [address] 03/10/2025 8:00 AM EST Appointment [facility] G Radiology [address] [place] [address] 03/10/2025 10:50 AM EST Clinical Support [facility] [address] [place] [phone] 03/10/2025 11:00 AM EST Office Visit [facility] [address] [place] [address] Edison Skaggs MD 800 [place] [address] 06/29/2025 12:30 PM EDT Clinical Support [facility] [address] [place] [address] 06/29/2025 1:00 PM EDT Office Visit [facility] [address] [place] [address] Danny Coon MD [address] [place] [address] documented as of this encounter Visit [...] documented as of this encounter Care Teams Architecture Faculty Member Relationship Specialty Start Date End Date Sergey Oh MD PCP - General 11/13/21 Jean Mak MD 800 [facility] Cancer [address] [address] Surgeon Otolaryngology 11/21/21 documented as of this encounter
--- OUTSIDE RECORDS SUMMARY | 2025-01-25 08:59 | XMS_ITS | Encounter Summary ---
Author Organization Healthcare Address [address] [place] [address] Care Team Providers Care Thermodynamicist Name Role Phone Sergey Oh MD Primary Care Provider [phone] Jean Mak MD Unavailable [phone] Encounter Details Date Type Department Care Team [...] EST Appointment [facility] Nuclear Medicine [address] [place] [address] 01/31/2025 2:30 PM EST Appointment [facility] Nuclear Medicine [address] [place] [address] 03/10/2025 8:00 AM EST Appointment [facility] G Radiology [address] [place] [address] 03/10/2025 10:50 AM EST Clinical Support [facility] [address] [place] [phone] 03/10/2025 11:00 AM EST Office Visit [facility] [address] [place] [phone] Edison Skaggs MD [address] [place] [address] 06/29/2025 12:30 PM EDT Clinical Support [facility] [address] [place] [phone] 06/29/2025 1:00 PM EDT Office Visit [facility] [address] [place] [phone] Danny Coon MD [address] [phone] documented as of this encounter Visit Diagnoses [...] documented as of this encounter Care Teams Thermodynamicist Relationship Specialty Start Date End Date Sergey Oh MD PCP - General 11/13/21 Jean Mak MD 800 [facility] Cancer [address] [address] Surgeon Otolaryngology 11/21/21 documented as of this encounter
--- OUTSIDE RECORDS SUMMARY | 2025-01-25 08:59 | XMS_ITS | Encounter Summary ---
Author Organization Healthcare Address [address] [place] [id number] Care Team Providers Care Metrology Technician Name Role Phone Sergey Oh MD Primary Care Provider [phone] Jean Mak MD Unavailable [phone] Encounter Details Date Type Department Care Team (Late st Contact Info) Description 01/08/2024 Lab Requisition [facility] H Lab [address] [place] [address] Broderick Taylor MD 800 [facility] [address] [place] [address] Polyp of colon Social History [...] Upcoming Encounters Date Type Department Care Team ([facility] st Contact Info) Description 01/31/2025 12:15 PM EST Appointment [facility] Nuclear Medicine [address] [place] [address] 01/31/2025 2:30 PM EST Appointment [facility] Nuclear Medicine [address] [place] [address] 03/10/2025 8:00 AM EST Appointment [facility] G Radiology [address] [place] [address] 03/10/2025 10:50 AM EST Clinical Support [facility] Multidisciplinary Oncology Clinic [address] [place] [address] 03/10/2025 11:00 AM EST Office Visit [facility] Multidisciplinary Oncology Clinic [address] [place] [phone] Edison Skaggs MD 800 [place] [address] 06/29/2025 12:30 PM EDT Clinical Support [facility] [address] [place] [phone] 06/29/2025 1:00 PM EDT Office Visit [facility] [address] [place] [phone] [place] [address] [place] [phone] documented as of this encounter Procedures Procedure Name Priority Date/Time Associated Diagnosis Comments SURGICAL PATHOLOGY CONSULT Routine 01/08/2024 10:42 AM EDT Polyp of colon documented in this encounter Results * Surgical Pathology Consult (01/08/2024 10:42 AM EDT) Case Report Sugical Pathology Consult Case: [id number] Authorizing Provider: Broderick Taylor MD Collected: 01/08/20241041 Ordering Location: [facility] Lab Received: 01/08/20241041 Pathologist: Dimas Becker DO Specimen: Sigmoid Colon, [id number] 1:[address] [facility] Final Diagnosis OUTSIDE SLIDES; [id number], A-C; 12/12/23 A. COLON, POLYP AT 25 [...] PMS2, MSH2 AND MSH6). 1:[address] [facility] at 1321 EDT Clinical Information K63.5 - Polyp of colon [ICD-10-CM] 1:[address] [facility] Special and Immunohistochemical Stains Special [...] developed by and are performed at the [facility], [address] [place] [address]. All tests reported here, except those addressing [...] negativity on decalcified specimens. 1:[address] [facility] Gross Description A. [id number] Received along with a corresponding pathology report from [facility] ([place]) are 47 slide(s) labeled outside case: [id number] collected on 12/12/23. Also received 2 blocks as noted per Dr. Becker on 01/15/2024. 1:[address] [facility] Intradepartmental Consultation with Agreement Dr. Palmer (vascular invasion, staging and mesenteric margin). 1:[address] [facility] Note: A resident was involved in the service. I attest I examined the relevant preparations for the specimens and confirmed the diagnosis or interpretation. 1:[address] [facility] Tissue Sigmoid colon structure / Unknown 01/08/2024 10:42 AM EDT 01/08/2024 10:42 AM EDT Broderick Taylor MD LAB PATHOLOGY ORDERABLES Fin al Result [facility] [address] [place] [address] documented in this encounter Visit Diagnoses Diagnosis [...] documented as of this encounter Care Teams Metrology Technician Relationship Specialty Start Date End Date Sergey Oh MD PCP - General 11/13/21 Jean Mak MD 800 [facility] Cancer [address] [phone] Surgeon Otolaryngology 11/21/21 documented as of this encounter
--- OUTSIDE RECORDS SUMMARY | 2025-01-25 08:59 | XMS_ITS ---
Author Organization [facility] Address [address] [place] [address] Care Team Providers Care Planer Chain Offbearer Name Role Phone Sergey Oh MD Primary Care Provider [phone] Jean Mak MD Unavailable [phone] Active Problems Problem Noted Date Diagnosed Date [...] 5-FU (Adrucil) infusion - for home use ([facility] supplied) CADD 100MLfluoroura cil (Adrucil)OXALI platin [...]
--- NOTE | 2025-01-25 09:00 | US_ITS ---
FINAL REPORT TECHNIQUE: Ultrasound images of the abdomen were obtained. CLINICAL HISTORY: Liver and RUQ FINDINGS: The pancreas is obscured by bowel gas. There is fatty infiltration of the liver. The gallbladder is absent. The common duct measures 5 mm. The right kidney measures 10.8 cm in length and is normal in echogenicity without hydronephrosis. The left kidney measures 9.5 cm in length and is normal in echogenicity without hydronephrosis. There are calcified granulomas in the spleen. There is mild plaque of the abdominal aorta. The vena cava is unremarkable. IMPRESSION: Fatty liver. Status postcholecystectomy. Reviewed, Interpreted and Dictated by Monico Camacho MD Transcribed by Callie Mosqueda Authenticated and [facility]
--- OUTSIDE RECORDS SUMMARY | 2025-01-25 09:00 | XMS_ITS | Encounter Summary ---
Author Organization Healthcare Address [address] [place] [address] Care Team Providers Care Accounts Receivable Manager Name Role Phone Pcp, No Primary Care Provider Sergey Oswald MD Primary Care Provider [phone] Jean Mak MD Unavailable [phone] Encounter Details Date Type Department Care Team (Late st Contact Info) Description 10/31/2021 Lab Requisition [facility] H Lab 800 [place] [address] Jean Mak MD 800 [facility] [address] [place] [phone] Nontoxic single thyroid nodule Social History Tobacco [...] Info) Description 01/31/2025 12:15 PM EST Appointment [facility] Nuclear Medicine [address] [place] [address] 01/31/2025 2:30 PM EST Appointment [facility] Nuclear Medicine 800 [place] [address] 03/10/2025 8:00 AM EST Appointment [facility] Radiology [address] [place] [address] 03/10/2025 10:50 AM EST Clinical Support [facility] Multidisciplinary Oncology Clinic [address] [place] [phone] 03/10/2025 11:00 AM EST Office Visit [facility] Multidisciplinary Oncology Clinic [address] [place] [phone] Edison Skaggs MD 800 [place] [address] 06/29/2025 12:30 PM EDT Clinical Support [facility] 800 [facility], 2nd [place] [address] 06/29/2025 1:00 PM EDT Office Visit [facility]ck [facility] Res[facility] 800 [facility], 2nd [place] [phone] Danny Coon MD 2195 [facility] [address] [place] [phone] documented as of this encounter Visit Diagnoses Diagnosis Nontoxic single thyroid nodule Nontoxic uninodular goiter documented in this encounter Care Teams Accounts Receivable Manager Relationship Specialty Start Date End Date Pcp, No 800 [place] [address] PCP - General Family Medicine 03/31/21 11/12/21 Sergey Oh MD [address] [place] [address] PCP - General 11/13/21 Jean Mak MD 800 [facility] [address] [place] [phone] Surgeon Otolaryngology 11/21/21 documented as of this encounter
--- OUTSIDE RECORDS SUMMARY | 2025-01-25 09:00 | XMS_ITS | Encounter Summary ---
Author Organization Healthcare Address [address] [place] [address] Care Team Providers Care Food Sampler Name Role Phone Pcp, No Primary Care Provider Sergey Oswald MD Primary Care Provider [phone] Jean Mak MD Unavailable [phone] Encounter Details Date Type Department Care Team (Late Contact Info) Description 08/09/2021 Orders Only External Location 800 [place] [address] Provider, External Social History Tobacco Use Types [...] EST Appointment [facility] Nuclear Medicine [address] [place] [address] 01/31/2025 2:30 PM EST Appointment [facility] Nuclear Medicine [address] [place] [address] 03/10/2025 8:00 AM EST Appointment [facility] G Radiology [address] [place] [phone] 03/10/2025 10:50 AM EST Clinical Support [facility] 800 [place] [address] 03/10/2025 11:00 AM EST Office Visit [facility] [address] [place] [phone] Edison Skaggs MD 800 [place] [address] 06/29/2025 12:30 PM EDT Clinical Support [facility] [address] [address] 06/29/2025 1:00 PM EDT Office Visit [facility] [address] [phone] Danny Coon MD [address] [phone] documented as of this encounter Procedures Procedure [...] on filedocumented in this encounter Care Teams Food Sampler Relationship Specialty Start Date End Date Pcp, No 800 [place] [address] PCP - General Family Medicine 03/31/21 11/12/21 Sergey Oh MD [address] [place] [address] PCP - General 11/13/21 Jean Mak MD [address] [place] [address] [facility] [address]nd [place] [address] Surgeon Otolaryngology 11/21/21 documented as of this encounter
--- OUTSIDE RECORDS SUMMARY | 2025-01-25 09:00 | XMS_ITS | Encounter Summary ---
Author Organization Healthcare Address [address] [place] [address] Care Team Providers Care Trigonometry Teacher Name Role Phone Pcp, No Primary Care Provider Sergey Oswald MD Primary Care Provider [phone] Jean Mak MD Unavailable [phone] Encounter Details Date Type Department Care Team (Late Contact Info) Description 08/30/2019 Orders Only External Location [address] [place] [address] Provider, External Social History Tobacco Use Types [...] EST Appointment [facility] Nuclear Medicine [address] [place] [phone] 01/31/2025 2:30 PM EST Appointment [facility] Nuclear Medicine [address] [place] [address] 03/10/2025 8:00 AM EST Appointment [facility] Radiology [address] [place] [address] 03/10/2025 10:50 AM EST Clinical Support [facility] [address] [place] [address] 03/10/2025 11:00 AM EST Office Visit [facility] [address] [place] [phone] Edison Skaggs MD 800 [place] [address] 06/29/2025 12:30 PM EDT Clinical Support [facility] [address] [address] 06/29/2025 1:00 PM EDT Office Visit [facility] [address] [phone] Danny Coon MD 2195 [facility] 125 [place] [phone] documented as of this encounter Procedures Procedure [...] on filedocumented in this encounter Care Teams Trigonometry Teacher Relationship Specialty Start Date End Date Pcp, No 800 [place] [address] PCP - General Family Medicine 03/31/21 11/12/21 Sergey Oh MD [address] [place] [address] PCP - General 11/13/21 Jean Mak MD [address] [place] [address] [facility] [address] [place] [address] Surgeon Otolaryngology 11/21/21 documented as of this encounter"
--- OUTSIDE RECORDS SUMMARY | 2025-01-25 09:00 | XMS_ITS | Encounter Summary ---
Author Organization Healthcare Address [address] [place] [address] Care Team Providers Care Nurse Informatics Educator Name Role Phone Pcp, No Primary Care Provider Sergey Oswald MD Primary Care Provider [phone] Jean Mak MD Unavailable [phone] Encounter Details Date Type Department Care Team (Late Contact Info) Description 10/29/2021 Lab Requisition [facility] H Lab 800 [place] [phone] Jean Mak MD 800 [facility] Cancer [address] [address] Localized swelling, mass and lump, [...] EST Appointment [facility] Nuclear Medicine 800 [place] [address] 01/31/2025 2:30 PM EST Appointment [facility] Nuclear Medicine 800 [place] [address] 03/10/2025 8:00 AM EST Appointment [facility] G Radiology [address] [place] [address] 03/10/2025 10:50 AM EST Clinical Support [facility] [address] [place] [address] 03/10/2025 11:00 AM EST Office Visit [facility] [address] [place] [phone] Edison Skaggs MD 800 [place] [address] 06/29/2025 12:30 PM EDT Clinical Support [facility] [address] [place] [phone] 06/29/2025 1:00 PM EDT Office Visit [facility] [address] [place] [phone] Danny Coon MD [address] [phone] documented as of this encounter Procedures Procedure Name Priority Date/Time Associated Diagnosis Comments CYTOLOGY CONSULT Routine 10/29/2021 10:3 1 AM EDT Localized swelling, mass and lump, neck documented in this encounter Results * Cytology Consult (10/29/2021 10:31 AM EDT) Case Report Cytology Case: [id number] Authorizing Provider: Jean Mak MD Collected: 10/29/2021 1031 Ordering Location: [facility] Lab Received: 10/29/2021 1031 Pathologist: Sourav Olvera MD Specimen: Neck, FNA, [id number] 10/30/2021 12:43 PM EDT [facility] Final Diagnosis A. 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 [id number] For clinical data and diagnosis (SUSPICIOUS) for this specimen ([id number]/FN A) see final report issued by [facility] Pathology Department. 10/30/2021 12:43 PM EDT [facility] Fine Needle Aspirate Neck structure / Unknown 10/29/2021 10:31 AM EDT 10/29/2021 10:31 AM EDT us Jean Mak MD LAB PATHOLOGY ORDERABLES Fin al Result [facility] 800 [place] [address] documented in this encounter Visit Diagnoses Diagnosis Localized swelling, mass and lump, neck Swelling, mass, or lump in head and neck documented in this encounter Care Teams Nurse Informatics Educator Relationship Specialty Start Date End Date Pcp, No 800 [place] [address] PCP - General Family Medicine 03/31/21 11/12/21 Sergey Oh MD [address] [place] [address] PCP - General 11/13/21 Jean Mak MD [address] [place] [address] [address] [place] [phone] Surgeon Otolaryngology 11/21/21 documented as of this encounter
--- OUTSIDE RECORDS SUMMARY | 2025-01-25 09:00 | XMS_ITS | Encounter Summary ---
Author Organization Healthcare Address [address] [place] [address] Care Team Providers Care Grinder Set Up Operator Centerless Name Role Phone Pcp, No Primary Care Provider Sergey Oswald MD Primary Care Provider [phone] Jean Mak MD Unavailable [phone] Encounter Details Date Type Department Care Team (Late Contact Info) Description 07/15/2019 Orders Only External Location 800 [place] [address] Provider, External Social History Tobacco Use Types [...] EST Appointment [facility] Nuclear Medicine [address] [place] [phone] 01/31/2025 2:30 PM EST Appointment [facility] Nuclear Medicine 800 [place] [address] 03/10/2025 8:00 AM EST Appointment [facility] Radiology [address] [place] [phone] 03/10/2025 10:50 AM EST Clinical Support [facility] 800 [place] [address] 03/10/2025 11:00 AM EST Office Visit [facility] 800 [place] [address] Edison Skaggs MD 800 [place] [address] 06/29/2025 12:30 PM EDT Clinical Support [facility] [address] [address] 06/29/2025 1:00 PM EDT Office Visit [facility] [address] [phone] Danny Coon MD 2195 [facility] 125 [place] [phone] documented as of this encounter Procedures Procedure [...] on filedocumented in this encounter Care Teams Grinder Set Up Operator Centerless Relationship Specialty Start Date End Date Pcp, No 800 [place] [address] PCP - General Family Medicine 03/31/21 11/12/21 Sergey Oh MD [address] [place] [address] PCP - General 11/13/21 Jean Mak MD [address] [place] [address] [facility] [address] [place] [phone] Surgeon Otolaryngology 11/21/21 documented as of this encounter
--- OUTSIDE RECORDS SUMMARY | 2025-01-25 09:00 | XMS_ITS | Encounter Summary ---
Author Organization Healthcare Address [address] [place] [address] Care Team Providers Care Commissioner Of Conciliation Name Role Phone Pcp, No Primary Care Provider Sergey Oswald MD Primary Care Provider [phone] Jean Mak MD Unavailable [phone] Encounter Details Date Type Department Care Team (Late st Contact Info) Description 09/04/2021 Orders Only External Location 800 [place] [address] Cristian Griffith MD [address] [place] [address] Social History Tobacco Use Types Packs/Day Years [...] EST Appointment [facility] Nuclear Medicine [address] [place] [phone] 01/31/2025 2:30 PM EST Appointment [facility] Nuclear Medicine [address] [place] [phone] 03/10/2025 8:00 AM EST Appointment [facility] G Radiology [address] [place] [phone] 03/10/2025 10:50 AM EST Clinical Support [facility]cology [facility] [address] [place] [phone] 03/10/2025 11:00 AM EST Office Visit [facility] [address] [place] [phone] Edison Skaggs MD 800 [place], [place] [phone] 06/29/2025 12:30 PM EDT Clinical Support [facility] [address] [phone] 06/29/2025 1:00 PM EDT Office Visit [facility] [address] [phone] Danny Coon MD [address] [address] documented as of this encounter [...] on filedocumented in this encounter Care Teams Commissioner Of Conciliation Relationship Specialty Start Date End Date Pcp, No 800 [place] [address] PCP - General Family Medicine 03/31/21 11/12/21 Sergey Oh MD [address] [place] [phone] PCP - General 11/13/21 Jean Mka MD 800 [facility] [address] [place] [phone] Surgeon Otolaryngology 11/21/21 documented as of this encounter
--- OUTSIDE RECORDS SUMMARY | 2025-01-25 09:00 | XMS_ITS | Encounter Summary ---
Author Organization Healthcare Address [address] [place] [address] Care Team Providers Care Pipe Processor Name Role Phone Pcp, No Primary Care Provider Sergey Oswald MD Primary Care Provider [phone] Jean Mak MD Unavailable [phone] Encounter Details Date Type Department Care Team (Late Contact Info) Description 11/19/2019 Orders Only External Location 800 [place] [address] Provider, External Social History Tobacco Use Types [...] EST Appointment [facility] Nuclear Medicine 800 [place] [phone] 01/31/2025 2:30 PM EST Appointment [facility] Nuclear Medicine 800 [place] [address] 03/10/2025 8:00 AM EST Appointment [facility] Radiology [address] [place] [address] 03/10/2025 10:50 AM EST Clinical Support [facility]cology [facility] 800 [place] [address] 03/10/2025 11:00 AM EST Office Visit [facility]cology [facility] 800 [place] [phone] Edison Skaggs MD 800 [place] [address] 06/29/2025 12:30 PM EDT Clinical Support [facility] [address] [phone] 06/29/2025 1:00 PM EDT Office Visit [facility] [address] [phone] Danny Coon MD 2195 [facility] 125 [place] [phone] documented as of this encounter Procedures Procedure [...] on filedocumented in this encounter Care Teams Pipe Processor Relationship Specialty Start Date End Date Pcp, No [address] [place] [address] PCP - General Family Medicine 03/31/21 11/12/21 Sergey Oh MD [address] [place] [address] PCP - General 11/13/21 Jean Mak MD [address] [place] [address] [facility] [address]nd [place] [address] Surgeon Otolaryngology 11/21/21 documented as of this encounter
--- OUTSIDE RECORDS SUMMARY | 2025-01-25 09:00 | XMS_ITS | Encounter Summary ---
Author Organization Healthcare Address [address] [place] [address] Care Team Providers Care Supervisor Sample Name Role Phone Pcp, No Primary Care Provider Sergey Oswald MD Primary Care Provider [phone] Jean Mak MD Unavailable [phone] Encounter Details Date Type Department Care Team (Late Contact Info) Description 11/19/2019 Orders Only External Location [address] [place] [address] Provider, External Social History Tobacco Use Types [...] EST Appointment [facility] Nuclear Medicine [address] [place] [phone] 01/31/2025 2:30 PM EST Appointment [facility] Nuclear Medicine [address] [place] [address] 03/10/2025 8:00 AM EST Appointment [facility] Radiology [address] [place] [address] 03/10/2025 10:50 AM EST Clinical Support [facility] [address] [place] [address] 03/10/2025 11:00 AM EST Office Visit [facility] [address] [place] [address] Edison Skaggs MD 800 [place] [address] 06/29/2025 12:30 PM EDT Clinical Support [facility] [address] [phone] 06/29/2025 1:00 PM EDT Office Visit [facility] [address] [phone] Danny Coon MD 2195 [facility] 125 [place] [phone] documented as of this encounter Procedures Procedure [...] filedocumented in this encounter Care Teams Supervisor Sample Relationship Specialty Start Date End Date Pcp, No [address] [place] [address] PCP - General Family Medicine 03/31/21 11/12/21 Sergey Oh MD [address] [place] [address] PCP - General 11/13/21 Jean Mak MD [address] [place] [address] [facility] [address]nd [place] [address] Surgeon Otolaryngology 11/21/21 documented as of this encounter
--- OUTSIDE RECORDS SUMMARY | 2025-01-25 09:00 | XMS_ITS | Encounter Summary ---
Author Organization Healthcare Address [address] [place] [address] Care Team Providers Care Hot Strip Mill Inspector Name Role Phone Pcp, No Primary Care Provider Sergey Oswald MD Primary Care Provider [phone] Jean Mak MD Unavailable [phone] Encounter Details Date Type Department Care Team (Late Contact Info) Description 02/14/2020 Orders Only External Location [address] [place] [address] Provider, External Social History Tobacco Use Types [...] Appointment [facility] Nuclear Medicine [address] [place] [address] 01/31/2025 2:30 PM EST Appointment [facility] [address] [place] [address] 03/10/2025 8:00 AM EST Appointment [facility] Radiology [address] [place] [address] 03/10/2025 10:50 AM EST Clinical Support [facility] [address] [place] [address] 03/10/2025 11:00 AM EST Office Visit [facility] [address] [place] [address] Edison Skaggs MD 800 [place] [address] 06/29/2025 12:30 PM EDT Clinical Support [facility] [address] [phone] 06/29/2025 1:00 PM EDT Office Visit [facility] [address] [phone] Danny Coon MD 2195 [facility] 125 [place] [address] documented as of this encounter Procedures Procedure [...] on filedocumented in this encounter Care Teams Hot Strip Mill Inspector Relationship Specialty Start Date End Date Pcp, No [address] [place] [address] PCP - General Family Medicine 03/31/21 11/12/21 Sergey Oh MD [address] [place] [address] PCP - General 11/13/21 Jean Mak MD [address] [place] [address] [facility] [address]nd [place] [address] Surgeon Otolaryngology 11/21/21 documented as of this encounter
--- OUTSIDE RECORDS SUMMARY | 2025-01-25 09:00 | XMS_ITS | Encounter Summary ---
Author Organization Healthcare Address [address] [place] [address] Care Team Providers Care Material Assistant Name Role Phone Pcp, No Primary Care Provider Sergey Oswald MD Primary Care Provider [phone] Jean Mak MD Unavailable [phone] Encounter Details Date Type Department Care Team (Late Contact Info) Description 01/22/2020 Orders Only External Location [address] [place] [address] Provider, External Social History Tobacco Use Types [...] EST Appointment [facility] Nuclear Medicine [address] [place] [address] 01/31/2025 2:30 PM EST Appointment [facility] Nuclear Medicine [address] [place] [address] 03/10/2025 8:00 AM EST Appointment [facility] Radiology [address] [place] [address] 03/10/2025 10:50 AM EST Clinical Support [facility] [address] [place] [address] 03/10/2025 11:00 AM EST Office Visit [facility] [address] [place] [phone] Edison Skaggs MD 800 [place] [address] 06/29/2025 12:30 PM EDT Clinical Support [facility] [address] [address] 06/29/2025 1:00 PM EDT Office Visit [facility] [address] [phone] Danny Coon MD 2195 [facility] 125 [place] [address] documented as of this encounter Procedures Procedure [...] on filedocumented in this encounter Care Teams Material Assistant Relationship Specialty Start Date End Date Pcp, No 800 [place] [address] PCP - General Family Medicine 03/31/21 11/12/21 Sergey Oh MD [address] [place] [address] PCP - General 11/13/21 Jean Mak MD [address] [place] [address] [facility] [address] [place] [address] Surgeon Otolaryngology 11/21/21 documented as of this encounter
--- OUTSIDE RECORDS SUMMARY | 2025-01-25 09:00 | XMS_ITS | Encounter Summary ---
Author Organization Healthcare Address [address] [place] [address] Care Team Providers Care Home Appliance Washing Machine Mechanic Name Role Phone Pcp, No Primary Care Provider Sergey Oswald MD Primary Care Provider [phone] Jean Mak MD Unavailable [phone] Encounter Details Date Type Department Care Team (Late Contact Info) Description 01/22/2020 Orders Only External Location [address] [place] [address] Provider, External Social History Tobacco Use Types [...] EST Appointment [facility] Nuclear Medicine [address] [place] [address] 01/31/2025 2:30 PM EST Appointment [facility] Nuclear Medicine [address] [place] [address] 03/10/2025 8:00 AM EST Appointment [facility] Radiology [address] [place] [address] 03/10/2025 10:50 AM EST Clinical Support [facility] [address] [place] [address] 03/10/2025 11:00 AM EST Office Visit [facility] [address] [place] [address] Edison Skaggs MD 800 [place] [address] 06/29/2025 12:30 PM EDT Clinical Support [facility] [address] [phone] 06/29/2025 1:00 PM EDT Office Visit [facility] [address] [phone] Danny Coon MD 2195 [facility] 125 [place] [address] documented as of this encounter Procedures Procedure [...] on filedocumented in this encounter Care Teams Home Appliance Washing Machine Mechanic Relationship Specialty Start Date End Date Pcp, No 800 [place] [address] PCP - General Family Medicine 03/31/21 11/12/21 Sergey Oh MD [address] [place] [address] PCP - General 11/13/21 Jean Mak MD [address] [place] [address] [facility] [address] [place] [address] Surgeon Otolaryngology 11/21/21 documented as of this encounter
--- OUTSIDE RECORDS SUMMARY | 2025-01-25 09:00 | XMS_ITS | Encounter Summary ---
Author Organization Healthcare Address [address] [place] [address] Care Team Providers Care Retail Receiving Clerk Name Role Phone Pcp, No Primary Care Provider Sergey Oswald MD Primary Care Provider [phone] Jean Mak MD Unavailable [phone] Encounter Details Date Type Department Care Team (Late Contact Info) Description 11/24/2019 Orders Only External Location [address] [place] [address] Provider, External Social History Tobacco Use Types [...] EST Appointment [facility] Nuclear Medicine [address] [place] [address] 01/31/2025 2:30 PM EST Appointment [facility] Medicine [address] [place] [address] 03/10/2025 8:00 AM EST Appointment [facility] Radiology [address] [place] [address] 03/10/2025 10:50 AM EST Clinical Support [facility] [address] [place] [address] 03/10/2025 11:00 AM EST Office Visit [facility] [address] [place] [address] Edison Skaggs MD 800 [place] [address] 06/29/2025 12:30 PM EDT Clinical Support [facility] [address] [address] 06/29/2025 1:00 PM EDT Office Visit [facility] [address] [phone] Danny Coon MD 2195 [facility] 125 [place] [address] documented as of this encounter Procedures Procedure [...] on filedocumented in this encounter Care Teams Retail Receiving Clerk Relationship Specialty Start Date End Date Pcp, No 800 [place] [address] PCP - General Family Medicine 03/31/21 11/12/21 Sergey Oh MD [address] [place] [address] PCP - General 11/13/21 Jean Mak MD [address] [place] [address] [facility] [address]nd [place] [address] Surgeon Otolaryngology 11/21/21 documented as of this encounter
--- OUTSIDE RECORDS SUMMARY | 2025-01-25 09:01 | XMS_ITS | Encounter Summary ---
Author Organization Healthcare Address [address] [place] [address] Care Team Providers Care Traveling Representative Name Role Phone Pcp, No Primary Care Provider Sergey Oswald MD Primary Care Provider [phone] Jean Mak MD Unavailable [phone] Encounter Details Date Type Department Care Team (Late Contact Info) Description 01/23/2020 Orders Only External Location [address] [place] [address] Provider, External Social History Tobacco Use Types [...] EST Appointment [facility] Nuclear Medicine [address] [place] [address] 01/31/2025 2:30 PM EST Appointment [facility] Nuclear Medicine [address] [place] [address] 03/10/2025 8:00 AM EST Appointment [facility] Radiology [address] [place] [address] 03/10/2025 10:50 AM EST Clinical Support [facility] [address] [place] [address] 03/10/2025 11:00 AM EST Office Visit [facility] [address] [place] [address] Edison Skaggs MD 800 [place] [address] 06/29/2025 12:30 PM EDT Clinical Support [facility] [address] [address] 06/29/2025 1:00 PM EDT Office Visit [facility] [address] [phone] Danny Coon MD 2195 [facility] 125 [place] [address] documented as of this encounter Procedures Procedure [...] on filedocumented in this encounter Care Teams Traveling Representative Relationship Specialty Start Date End Date Pcp, No 800 [place] [address] PCP - General Family Medicine 03/31/21 11/12/21 Sergey Oh MD [address] [place] [address] PCP - General 11/13/21 Jean Mak MD [address] [place] [address] [facility] [address]nd [place] [address] Surgeon Otolaryngology 11/21/21 documented as of this encounter
--- OUTSIDE RECORDS SUMMARY | 2025-01-25 09:01 | XMS_ITS | Encounter Summary ---
Author Organization Healthcare Address [address] [place] [address] Care Team Providers Care Calcine Furnace Tender Name Role Phone Sergey Oh MD Primary Care Provider [phone] Jean Mak MD Unavailable [phone] Encounter Details Date Type Department Care Team (Late st Contact Info) Description 10/21/2023 Orders Only External Location 800 [place] [address] Provider, External Social History Tobacco Use Types [...] Upcoming Encounters Date Type Department Care Team ([facility] st Contact Info) Description 01/31/2025 12:15 PM EST Appointment [facility] Nuclear Medicine 800 [place] [address] 01/31/2025 2:30 PM EST Appointment [facility] Nuclear Medicine 800 [place] [address] 03/10/2025 8:00 AM EST Appointment [facility] G Radiology [address] [place] [address] 03/10/2025 10:50 AM EST Clinical Support [facility] [address] [place] [address] 03/10/2025 11:00 AM EST Office Visit [facility] [address] [place] [address] Edison Skaggs MD 800 [place] [address] 06/29/2025 12:30 PM EDT Clinical Support [facility] [address] [place] [address] 06/29/2025 1:00 PM EDT Office Visit [facility] [address] [place] [address] Danny Coon MD [address] [phone] documented as of this encounter Procedures Procedure [...] documented as of this encounter Care Teams Calcine Furnace Tender Relationship Specialty Start Date End Date Sergey Oh MD PCP - General 11/13/21 Jean Mak MD 800 [facility] [address] [address] Surgeon Otolaryngology 11/21/21 documented as of this encounter
--- OUTSIDE RECORDS SUMMARY | 2025-01-25 09:01 | XMS_ITS | Encounter Summary ---
Author Organization Healthcare Address [address] [place] [address] Care Team Providers Care Harbor Patrol Police Name Role Phone Pcp, No Primary Care Provider Sergey Oswald MD Primary Care Provider [phone] Jean Mak MD Unavailable [phone] Encounter Details Date Type Department Care Team (Late st Contact Info) Description 09/20/2021 Orders Only External Location [address] [place] [address] Cristian Griffith MD [address] [place] [address] Social History Tobacco Use Types Packs/Day Years [...] EST Appointment [facility] Nuclear Medicine [address] [place] [address] 01/31/2025 2:30 PM EST Appointment [facility] Nuclear Medicine 800 [place] [address] 03/10/2025 8:00 AM EST Appointment [facility] G Radiology [address] [place] [address] 03/10/2025 10:50 AM EST Clinical Support [facility] 800 [place] [address] 03/10/2025 11:00 AM EST Office Visit [facility] [address] [place] [address] Edison Skaggs MD 800 [place], [place] [phone] 06/29/2025 12:30 PM EDT Clinical Support [facility] [address] [phone] 06/29/2025 1:00 PM EDT Office Visit [facility] [address] [phone] Danny Coon MD [address] [address] documented as of this encounter [...] on filedocumented in this encounter Care Teams [employer] Police Relationship Specialty Start Date End Date Pcp, No 800 [place] [address] PCP - General Family Medicine 03/31/21 11/12/21 Sergey Oh MD [address] [place] [address] PCP - General 11/13/21 Jean Mak MD 800 [facility] [address] [place] [phone] Surgeon Otolaryngology 11/21/21 documented as of this encounter
--- OUTSIDE RECORDS SUMMARY | 2025-01-25 09:01 | XMS_ITS | Clinical Summary ---
Author Organization [facility] Address [address] [place] [address] Care Team Providers Care Deckhand Crab Boat Name Role Phone Melia Knox Primary Care Provider [phone] Medications OTHER - BILL ONLY Ac tive [...] 2024 Influenza Vaccination (#1) 2024 Care Teams Deckhand Crab Boat Relationship Specialty Start Date End Date Melia Knox [address] [facility] [place] [address] PCP - General Family Medicine 09/29/17
--- NOTE | 2025-01-26 13:05 | PC.NURSE ---
Pulmonary rehab note Pt did not show for Evaluation for rehab on
== END 2025-01-25 23:59 | disposition home or self-care (01) ==
LOC: RAD 08:53
PROVIDERS: PCP Family Medicine; Visit Provider Family Medicine
DX: C18.9 Malignant neoplasm of colon, unspecified (principal); K76.0 Fatty (change of) liver, not elsewhere classified; M54.9 Dorsalgia, unspecified; R10.11 Right upper quadrant pain; R10.A1 Flank pain, right side; Z90.49 Acquired absence of other specified parts of digestive tract
CPT/HCPCS: 76700

== ENCOUNTER 2025-03-22 09:52 | Outpatient (CLI) | payer OTHER, SELFPAY ==
--- OUTSIDE RECORDS SUMMARY | 2025-01-31 12:15 | XMS_ITS | Encounter Summary ---
Author Organization [facility] Address [address] 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 Procedures NM Bone Scan Whole Body Danny Coon MD [address] [address] Phone: tel: fax: Referral ID Status Reason Start Date Expiration Date Visits Re quested Visits Authorized [id number] Closed 01/12/2025 07/14/2026 2 2 Reason for Visit * Imaging (Routine) - Closed Specialty Diagnoses / Procedures Referred By Contac t Referred To Contact Radiology Diagnoses Elevated alkaline phosphatase level 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 Procedures NM Bone Scan Whole Body Danny Coon MD [address] [address] Phone: tel: fax: Referral ID Status Reason Start Date Expiration Date Visits Re quested Visits Authorized [id number] Closed 01/12/2025 07/14/2026 2 2 Encounter Details Date Type Department Care Team (Latest Contact Info) Description 01/31/2025 12:15 PM EST - 01/31/2025 12:31 PM EST Hospital Encounter [facility] H Nuclear Medicine [address] [place] [address] Abdiel Haji, RN [facility] None Elevated alkaline phosphatase level; Malignant neoplasm of sigmoid colon (CMS/HCC); 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 09/19/2023 cyclobenzaprine (Flexeril) 10 MG tablet Take 1 tablet by mouth 3 times a day as needed for muscle spasms. ergocalciferol 1.25 MG (55952 UT) capsule TAKE ONE (1) CAPSULE BY MOUTH ONE (1) TIME PER WEEK. 12 capsule 3 12/22/2024 ipratropium-albu terol (Duo-Neb) 0.5-2.5 mg/3 mL nebulizer solution Take 3 mL by nebulization 4 times a day as needed. 06/18/2024 levothyroxine (Synthroid, Levoxyl) 125 MCG tablet Take 1 tablet by mouth daily. 90 tablet 1 01/02/2025 tenofovir disoproxil fumarate (Viread) 300 MG tabletIndication s:Chronic viral hepatitis B without delta agent and without coma (CMS/HCC) Take 1 tablet (300 mg) by mouth daily. 30 tablet 11 06/21/2024 6 docusate sodium (Colace) 100 MG capsule take one (1) capsule by mouth once daily 12/03/2024 5 HYDROcodone-acet aminophen ([place]) 7.5-325 MG tablet Take 1 tablet by mouth every 8 hours. 5 prochlorperazine (Compazine) 10 MG tablet 5 documented as of this encounter Plan of Treatment Upcoming Encounters Date Type Department Care Team (Late st Contact Info) Description 03/30/2025 8:30 AM EST Appointment [facility] Infusion Clinic 2 [address] [place] [address] 2025 9:00 AM EST Appointment [facility] Infusion Clinic 2 [address] [place] [address] 04/14/2025 7:45 AM EST Clinical Support [facility] Multidisciplinary Oncology Clinic [address] [place] [address] 04/14/2025 8:00 AM EST Office Visit [facility] Multidisciplinary Oncology Clinic [address] [place] [address] Edison Skaggs MD 800 [place] [address] 04/14/2025 9:30 AM EST Appointment [facility] Infusion [address] [place] [address] 04/16/2025 10:30 AM EST Appointment [facility] Infusion [address] [place] [address] 04/28/2025 8:30 AM EST Appointment [facility] Infusion [address] [place] [address] 04/30/2025 10:00 AM EST Appointment [facility] 1 [address] [place] [address] 06/29/2025 12:30 PM EDT Clinical Support [facility] 800 [facility], 2nd [place] [address] 06/29/2025 1:00 PM EDT Office Visit [facility] 800 [facility], [address]nd [place] [address] Danny Coon MD [address] [facility] [address] [place] [address] documented as of this encounter Procedures Procedure Name Priority Date/Time Associated Diagnosis Comments NM BONE SCAN WHOLE BODY Routine 01/31/2025 3:25 PM EST Elevated alkaline phosphatase level 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 CRITICAL RESULT: No. COMMUNICATION: Per this written report. Drafted by Adán Bowers on 01/31/2025 8:06 PM Final report signed by Adán Bowers on 01/31/2025 8:13 PM Narrative 01/31/2025 8:13 PM EST CLINICAL INDICATION: elevated ALP, Thyroid and colon cancer. . TECHNIQUE: At 2-3 hours following intravenous administration of 25.8 mCi of Tc-99m MDP, whole-body images were acquired in anterior and posterior projections. Regional images of skull, cervical spine, thorax, upper extremities, and post-void pelvis were acquired in multiple projections. COMPARISON/CORRELATION: No comparison. No correlative imaging. FINDINGS: Bones: No sites of focal abnormal radiotracer uptake in axial and appendicular skeleton to suggest osteoblastic sclerotic bone metastatic process. Soft-tissues: Normal. Two kidneys visualized. Radiotracer contamination in the perineum. Procedure Note Adán Bowers MD - 01/31/2025 CLINICAL INDICATION: elevated ALP, Thyroid and colon cancer. . TECHNIQUE: At 2-3 hours following intravenous administration of 25.8 mCi of Tc-99mMDP, whole-body images were acquired in anterior and posteriorprojections. Regional images of skull, cervical spine, thorax, upperextremities, and post-void pelvis were acquired in multiple projections. COMPARISON/CORRELATION: No comparison. No correlative imaging. FINDINGS: Bones: No sites of focal abnormal radiotracer uptake in axial andappendicular skeleton to suggest osteoblastic sclerotic bone metastaticprocess. Soft-tissues: Normal. Two kidneys visualized. Radiotracer contamination in the perineum. IMPRESSION: No sites of focal abnormal radiotracer uptake in axial and appendicularskeleton to suggest osteoblastic sclerotic bone metastatic process. CRITICAL RESULT: No. COMMUNICATION: Per this written report. 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 documented in this encounter Administered Medications Inactive Administered Medications - up to 3 most recent administrations Medication Order MAR Action Action Date Dose Rate Site heparin flush (porcine) 100 UNIT/ML injection 500 Units 500 Units, Intracatheter, Once as needed, Starting on Fri01/31/25 at 1216, Until Fri02/01/25 at 0015, Routine, Intraprocedure, line care Given 01/31/2025 12:24 PM EST 500 Units technetium Tc-99m medronate (Tc-MDP) radio-isotope injection 25 millicurie 25 millicurie, Intravenous, Once, 1 dose, On Fri01/31/25 at 1315, Routine, Imaging NM Protocol Orders Given 01/31/2025 12:20 PM EST 25.8 millicuries documented in this encounter Additional Health Concerns Assessment Noted Time PHQ-9 Depression Total Score: 0 06/22/19 1:53 PM EDT A fall risk assessment has been complete d for the patient 12/29/2024 1:10 PM EDT A Body Mass Index follow-up plan has been documented for the patient 06/23/2024 9:55 AM EDT documented as of this encounter Care Teams Undercutter Operator Relationship Specialty Start Date End Date Sergey Oh MD PCP - General 11/13/21 Jean Mak MD 800 [facility] [address] [address] Surgeon Otolaryngology 11/21/21 documented as of this encounter
--- OUTSIDE RECORDS SUMMARY | 2025-01-31 14:30 | XMS_ITS | Encounter Summary ---
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 ergocalciferol 1.25 MG (65544 UT) capsule TAKE ONE (1) CAPSULE BY [...] (1) capsule by mouth once daily 12/03/2024 HYDROcodone-acet aminophen (Mitchell) 7.5-325 MG tablet Take 1 tablet by mouth every 8 hours. 5 prochlorperazine (Compazine) 10 MG tablet 5 documented as of this encounter Plan of Treatment Upcoming Encounters Date Type Department Care Team (Late st Contact Info) Description 03/30/2025 8:30 AM EST Appointment [facility] [address] [place] [address] 2025 9:00 AM EST Appointment [facility] [address] [place] [address] 04/14/2025 7:45 AM EST Clinical Support [facility] [address] [place] [address] 04/14/2025 8:00 AM EST Office Visit [facility] Mult[facility] On[facility] [address] [place] [address] Edison Skaggs MD [address] [place] [address] 04/14/2025 9:30 AM EST Appointment [facility] [address] [place] [address] 04/16/2025 10:30 AM EST Appointment [facility] [address] [place] [address] 04/28/2025 8:30 AM EST Appointment [facility] [address] [place] [address] 04/30/2025 10:00 AM EST Appointment [facility] [address] [place] [address] 06/29/2025 12:30 PM EDT Clinical Support [facility] [address] [address] 06/29/2025 1:00 PM EDT Office Visit [facility] [address] [address] Danny Coon MD [address] [address] documented as of this encounter Procedures Procedure [...] by Adán Bowers on 01/31/2025 8:13 PM Danny Coon MD IMG NM PROCEDURES Final [...] documented as of this encounter Care Teams Roll Skinner Relationship Specialty Start Date End Date Sergey Oh MD PCP - General 11/13/21 Jean Mak MD [address] [place] [address] [address] Surgeon Otolaryngology 11/21/21 documented as of this encounter
--- OUTSIDE RECORDS SUMMARY | 2025-02-12 17:47 | XMS_ITS | Encounter Summary ---
[facility] Organization [facility] Address [address] [place] [address] Care Team Providers Care Blasting Machine Operator Name Role Phone Sergey Oh MD Primary Care Provider [phone] Jean Mak MD Unavailable [phone] Alice Chou RN Unavailable Unavailable Reason for Referral * Consultation (Routine) - Closed Specialty Diagnoses / Procedures Referred By Dhruv kebede Referred To Contact Pain Medicine Diagnoses Lymph node enlargement Angelito Martin MD [address] [place] [address] Phone: tel: fax: [facility] [address] [place] [address] Phone: tel: fax: Referral ID Status Reason Start Date Expiration Date V isits Requested Visits Authorized [id number] Closed Specialty Services Required 02/14/2025 08/16/2026 1 1 Scheduling Instructions Celiac plexus block within 2 weeks Reason for Visit * Reason Comments Hypotension * Auth/Cert (Routine) Specialty Diagnoses / Procedures Referred By Dhruv kebede Referred To Contact Diagnoses Lymph node enlargement Hypotension Generalized abdominal pain Hypotension, unspecified hypotension type Nausea and vomiting, unspecified vomiting type hypotensive, necrotic lymph nodes Werner Grullon MD [address] [place] [address] Phone: tel: fax: [facility] [address] [place] [address] Phone: tel: Referral ID Status Reason Start Date Expiration Date Visits Re quested Visits Authorized [id number] 1 1 Encounter Details Date Type Department Care Team (Latest Contact Info) Description 02/12/2025 5:47 PM EST - 02/14/2025 2:25 PM EST Hospital Encounter [facility] [address] [place] [address] Jamir Chiu MD [address] [place] [address] Jaylin Vanegas MD [address] [place] [address] Werner Grullon MD [address] [place] [address] Angelito Martin MD [address] [place] [address] Lymph node enlargement (Primary Dx); Hypotension, unspecified hypotension type; Generalized abdominal pain; Nausea and vomiting, unspecified vomiting type Discharge Disposition: Home or Self Care Social History Tobacco Use Types Packs/Day Years Used Date Smoking Tobacco: Every Day Cigarettes 1 32.6 Started: 03/31/1994 Passive Smoke Exposure: Current Smokeless Tobacco: Never Comments:Vaping Alcohol Use Standard Drinks/Week Comments Yes 2 (1 standard drink = 0.6 oz pur e alcohol) Occasional PHQ-2 Answer Date Recorded Patient Health Questionnaire-2 Score 0 02/17/2025 PHQ-9 Answer Date Recorded Patient Health Questionnaire-9 Score 0 06/21/2024 CAGE ASSESSMENT Answer Date Recorded Cage unable to access Not on file 02/12/2025 Maximum number of drinks you had on a given occasion in the last month? 0 drinks 02/12/2025 How many alcoholic Beverages do you typically drink in a week? 0 - 7 per week 02/12/2025 Have you ever felt you should CUT down on your d rinking? 0 02/12/2025 Have you been ANNOYED by peo ple criticizing your drinking? 0 02/12/2025 Have you felt GUILTY about your drinking? 0 02/12/2025 Have you had a drink first t mono in the morning (EYE-BATH MIX OPERATOR) to steady your nerves or to get rid of a hangover? 0 02/12/2025 CAGE Questionnaire Score 0 025 PHQ-2A Answer Date Recorded Patient Health Questionnaire-2 [...] Sign Reading Time Taken Comments Blood Pressure 115/76 02/14/2025 11:59 AM EST Pulse 100 02/14/2025 11:59 AM EST Temperature 37 C (98.6 F) 02/14/2025 11:59 AM EST Respiratory Rate 17 02/14/2025 11:59 AM EST Oxygen Saturation 91% 02/14/2025 11:59 AM EST Inhaled Oxygen Concentration - - Weight 70 kg (154 lb 5.2 oz) 02/14/2025 5:00 AM EST Height 157.5 cm (5' 2.01 ) 02/13/2025 11:[address] Body Mass Index 28.22 02/13/2025 11:00 AM EST documented in this encounter Functional Status * Question Answer Date of Assessment Author Precautions Environmental surveillance 02/14/2025 2:0 0 PM EST Caterina Gregg RN * Over the past 2 weeks, how often have you been bothered by any of the following problems? Question Answer Date of Assessment Author Little interest or pleasure in doing things Not at all 02/17/2025 10:13 AM EST Jamir Shelton Feeling down, depressed, or hopeless Not at all 02/17/2025 10:13 AM Jamir Mcgraw Patient Health Questionnaire -2 Score 0 02/17/2025 10:13 AM Jamir Mcgraw * Question Answer Date of Assessment Author Thoughts that you would be b anel off or hurting yourself in some way Not at all 02/17/2025 10:13 AM Jamir Mcgraw * Calculated C-SSRS Risk Score (Lifetime/Recent) Answer Date of Assessment Author No Risk Indicated 02/14/2025 7:20 AM Caterina Ferguson, ROSHNI * How difficult have these problems made it for you to do your work, take care of things at home, or get along with other people? Answer Date of Assessment Author Not difficult at all 02/17/2025 10:13 AM Jamir Singh * Question Answer Date of Assessment Author 1. Wish to be (Past 1 Month) No 02/14/2025 7:20 AM Vishnu Mayfield RN 2. Non-Specific Active Suici juanis Thoughts (Past 1 Month) No 02/14/2025 7:20 AM Ryan Mayfield, ROSHNI 6. Suicidal Behavior (Lifetime) No 7:20 AM Caterina Mayfield, ROSHNI documented as of this encounter Mental Status * Question Answer Entry Date Author Precautions Environmental surveillance 02/14/2025 2:0 0 PM Caterina Mayfield, ROSHNI documented in this encounter Medications at Time of Discharge albuterol 108 (90 Base) MCG/ACT inhaler Inhale 2 puffs 4 times a day as needed. 09/19/2023 cyclobenzaprine (Flexeril) 10 MG tablet Take 1 tablet by mouth 3 times a day as needed for muscle spasms. ergocalciferol 1.25 MG (09714 UT) capsule TAKE ONE (1) CAPSULE BY MOUTH ONE (1) TIME PER WEEK. 12 capsule 3 12/22/2024 ipratropium-albu terol (Duo-Neb) 0.5-2.5 mg/3 mL nebulizer solution Take 3 mL by nebulization 4 times a day as needed. 06/18/2024 levothyroxine (Synthroid, Levoxyl) 125 MCG tablet Take 1 tablet by mouth daily. 90 tablet 1 01/02/2025 naloxone (Narcan) 4 mg/0.1 mL nasal spray 1. Give 1 spray in nostril for no/slow breathing or cannot wake after opioid use 2. Call 911 3. Repeat in other nostril if symptoms continue 1 each 02/14/2025 polyethylene glycol (Miralax) 17 GM/SCOOP powder Take 17 g by mouth 2 times a day. tenofovir disoproxil fumarate (Viread) 300 MG tabletIndication s:Chronic viral hepatitis B without delta agent and without coma (CMS/HCC) Take 1 tablet (300 mg) by mouth daily. 30 tablet 11 06/21/2024 6 tiotropium-oloda terol (Stiolto Respimat) 2.5-2.5 MCG/ACT aerosol solution inhaler Inhale 2 Inhalations daily. HYDROcodone-acet aminophen (Edson) 7.5-325 MG tablet Take 1 tablet by mouth every 8 hours for 3 days. 9 tablet 02/14/2025 5 documented as of this encounter Miscellaneous Notes * Progress Notes - Nic Hernandez RN - 02/14/2025 2:25 PM EST REFERRAL: A referral was phoned/faxed to: Transitions ([facility]) Outpatient Transitions program is NOT hospice; rather, an added layer of support for patients who have a significant progressive illness. The program consists of a monthly GARNISHER visit to monitor for symptoms and write scripts accordingly. Unlike hospice, this program may be used in tandem with home health The GARNISHER will also monitor disease progression and continue [id number] discussions. Should a patient's condition decline, and they decide to pursue comfort-care only, they could transition to [facility] program at that time. After review by medical records specialist, and if accepted to their program, the ... liaison will contact patient directly to set up date/time of initial home visit. NOTE: Sometimes the availability for initial appointment can be 2-3 weeks out. * Nursing Note - Caterina Gregg, RN - 02/14/2025 2:09 PM EST Patient discharged home with family with her home rollator.. Discharge lounge report called but patient decided to walk out to the front instead. Prior to walking out, Patient educated about medications and post care instructions. Discharge packet was went through thoroughly with patient and family. All IV's and lines are out and all of patient belongings sent with patient. Medications delivered to bedside by [facility]. * Yeny Pink, ROSHNI - 02/14/2025 12:44 PM EST Images from the original note were not included. [id number] Discharge Instructions for Low Blood Pressure (Hypotension) You have been diagnosed with low blood pressure (hypotension). This means your blood pressure is lower than normal. Low blood pressure can make you feel dizzy or faint. This condition is sometimes a side effect of taking certain medicines, including medicines for high blood pressure (hypertension).It can also result from problems such as dehydration. Low blood pressure has many possible causes. Sometimes the cause is unknown, and you will need follow-up visits and tests. Home care These steps can help manage your condition: ? Follow your health care provider?s instructions. Go to all your follow-up appointments. ? Rest in bed and ask for help with daily activities until you feel better. You may need to slowly increase the amount of time you spend sitting or doing light activity. ? Don?t drive while your blood pressure is not controlled. ? Be careful when you get up from sitting or lying down. o Take your time. Sudden movements can cause dizziness or fainting. o When you first sit up after lying down, be sure to sit up for at least 30 seconds or so before getting up to walk. o Place your feet on the floor before standing. ? Tell your provider about the medicines you are taking. Many kinds of medicines set off low blood pressure. ? Limit your alcohol intake to no more than 2 drinks a day for men and 1 drink a day for women. Alcohol can dehydrate you even further. It can also interfere with how well medicines work. ? You can prevent dehydration by drinking plenty of fluids unless instructed otherwise by your provider. ? Learn to take your own blood pressure. Keep a record of your results. Ask your provider which readings mean that you need medical attention. ? Tell your family members to call an ambulance if you become unconscious. Ask them to learn CPR. Follow-up care Make a follow-up appointment, or as advised. Call 911 Call 911 right away if you have: ? Chest pain. ? Shortness of breath. When to get medical advice Contact your health care provider right away if you have any of the following: ? Dizziness or fainting spells ? Black, maroon, or tarry stools ? Irregular heartbeat ? Neck pain or stiffness ? Severe upper back pain ? Diarrhea or vomiting that doesn?t go away ? Inability to eat or drink ? Burning sensation when you pee ? Urine with a strong, unpleasant odor ? Fainting with exercise Last Reviewed Date: 2024 00:00:00 ?? [id number] [employer]. All rights reserved. This information is not intended as a substitute for professional medical care. Always follow your healthcare professional's instructions. * Discharge Summary - Angelito Martin MD - 02/14/2025 12:24 PM EST Hospitalization Admit Date/Time: 02/12/2025 5:47 PM Admitting Attending: Werner Grullon Discharge Date: 02/14/25 Discharge Attending Physician: Angelito Martin MD PCP name and Address: Sergey Oh MD [address] [facility] [address] Referring provider name and address: Oleg Rojas, [address] [address] Chief Concern, Brief History of Present Illness, and Hospital Course Draft Hospital Course Anita Finnegan is a 44 y.o. female with past medical hx significant for thyroid cancer s/p thyroidectomy, colon cancer stage II A s/p sigmoidectomy and adjuvant chemotherapy completed in March2024, COPD who presents with acute on chronic abdominal pain of 3 days duration. 44-year-old femalewho presents for abdominal pain, COPD, anemia, and decreased appetite. [facility] to persistent abdominal pain that began 3 to 4 days ago. The pain, described as a sensation of fullness billie to a fluid sac or balloon, is constant unless she takes medication. It intensifies with movement, such as sitting or walking, and was exacerbated by the bumps encountered during her ambulance ride. The pain, rated as an 8 on a scale of 10, is sharp and pulsating, reminiscent of her previous experience with diverticulitis but more severe. She has been experiencing difficulty eating for the past 6 months, often consuming only one small meal per day, equivalent to a slice of pizza. Despite this, she reports no weight loss. She has not vomited since the beginning of the week and reports no hematemesis but was vomiting multiple times prior to that. She has not had a bowel movement in several days, which she attributes to discontinuingMiraLAX. . She experiences sharp pain during urination but reports no dysuria or hematuria. She reports no fever, chills, chest pain, or new respiratory symptoms. She has a history of thyroid cancer, treated with thyroidectomy at [facility] in 2019, and colon cancer, for which she completed treatment in Mar 2024. She has a history of cholecystectomy, right knee surgery for a fractured patella, cone surgery on her cervix, , and tubal ligation. She has a history of COPD and is under the care of a mottler machine feeder in [place], who has referred her to pulmonary rehabilitation starting Friday. She quit smoking 2 months ago and now vapes. She reports no alcohol or drug use. She lives with her adult children who assist with her care. 02/13/2025: Patient is still lying in bed endorsing severe abdominal pain that is a little bit better. Continues to describe it has a bag. Interventional Radiology consulted awaiting to your recommendations. Interventional Oxy. Concern for possible pain, blasts for interventional pain for celiac plexus nerve block. 02/14/2025: Patient continues to endorse severe abdominal pain. She would like to go home as there is no intervention at this time. Palliative Care was consulted who recommended 5 mg by mouth twice daily at [facility] has well as her home dose medication. Juanita Finnegan is a 44 y.o. female with a known medical history of thyroid cancer s/p thyroidectomy, colon cancer stage II A s/p sigmoidectomy and adjuvant chemotherapy completed in March 2024, COPD who presents with acute on chronic abdominal pain of 3 days duration. Acute on chronic abdominal pain Hypotension likely 2/2 hypovolemia in the context of vomiting and decreased oral intake Malnutrition - The patient reports severe abdominal pain that started 3-4 days ago - hemodynamically stable after IV fluids - Labs with WBC 7.7, Hgb 9.5, normal renal function, albumin 2.8 - was significantly hypotensive is OSH 69/57 but improved significantly after IV fluids. No signs of infection. Lactate and procal are negative. CRP is elevated but could be explained by her colonic malignancy - A CT scan from an outside hospital did not show any infectious process but revealed necrotic lymph nodes, which might be causing the pain. - IV fluids as needed - follow blood cultures - hold off antibiotics for now - PT, OT - nutrition evaluation - Interventional Radiology for possible drainage of necrotic lymph nodes--> outpatient follow up - Interventional pain for celiac nerve block. Normocytic anemia - The patient is slightly anemic with a hemoglobin level of 9.5. - No signs of acute blood loss - monitor Hgb - Start iron ferrous sulfate 325. Colon cancer stage IIA - S/p sigmoidectomy and adjuvant FOLFOX, CEA is 18.0. - CT abdomen shows necrotic retroperitoneal lymph nodes - consider oncology consult in the morning Chronic obstructive pulmonary disease (COPD). - The patient has COPD and is currently using Ventolin and Stiolto for management. - She has a chronic smoker's cough but stopped smoking 2 months ago and now vapes. - Anoro while admitted (stiolto non formulary ) - PRN albuterol Hepatitis B - Consider resuming tenofovir if appropriate Thyroid cancer. - The patient had thyroid cancer in 2019 and underwent a thyroidectomy at [facility]. - She is currently taking levothyroxine for thyroid management. Will continue Surgeries and Procedures Medication List .. albuterol 108 (90 Base) MCG/ACT inhaler Inhale 2 puffs 4 times a day as needed. cyclobenzaprine 10 MG tablet Commonly known as: Flexeril Take 1 tablet by mouth 3 times a day as needed for muscle spasms. ergocalciferol 1.25 MG (49487 UT) capsule Commonly known as: Vitamin D-2 TAKE ONE (1) CAPSULE BY MOUTH ONE (1) TIME PER WEEK. HYDROcodone-acetaminophen 7.5-325 MG tablet Commonly known as: Edson Take 1 tablet by mouth every 8 hours for 3 days. ipratropium-albuterol 0.5-2.5 mg/3 mL nebulizer solution Commonly known as: Duo-Neb Take 3 mL by nebulization 4 times a day as needed. levothyroxine 125 MCG tablet Commonly known as: Synthroid, Levoxyl Take 1 tablet by mouth daily. naloxone 4 mg/0.1 mL nasal spray Commonly known as: Narcan 1. Give 1 spray in nostril for no/slow breathing or cannot wake after opioid use 2. Call 911 3. Repeat in other nostril if symptoms continue polyethylene glycol 17 GM/SCOOP powder Commonly known as: Miralax Take 17 g by mouth 2 times a day. Stiolto Respimat 2.5-2.5 MCG/ACT aerosol solution inhaler Generic drug: tiotropium-olodaterol Inhale 2 Inhalations daily. tenofovir disoproxil fumarate 300 MG tablet Commonly known as: Viread Take 1 tablet (300 mg) by mouth daily. Where to Get Your Medications These medications were sent to [facility] - [place], [place] - [address] [facility] [id number] HYDROcodone-acetaminophen 7.5-325 MG tablet naloxone 4 mg/0.1 mL nasal spray Discharge Diagnosis Medical Problems Active and Resolved Hospital Problems Hospital Recurrent thyroid cancer (CMS/HCC) Colon cancer (CMS/HCC) * (Principal) Hypotension due to hypovolemia Hypotension Lymph node enlargement Post Discharge Instructions PCP interventional radiology Outpatient Follow-Up Future Appointments Date Time Provider Department Center 02/17/2025 8:00 AM Edison Skaggs MD [facility] 02/17/2025 8:05 AM MULTI-D SIMULATION ENGINEER SPICE FUMIGATOR CARLOS Herrera 02/21/2025 1:[address] [facility] VASCULAR INTERVENTIONAL RADIOLOGY JONATHAN 1 [facility] 03/01/2025 11:[address]2 [facility]RAD[facility] 03/10/2025 8:[address] 2 [facility] 03/10/2025 10:50 AM MULTI-D SIMULATION ENGINEER SPICE FUMIGATOR CARLOS KuRiya 06/29/2025 12:30 PM [facility] THYROID RN NAZARIO Churchill 06/29/2025 1:00 PM Danny Coon MD [facility] Test Results Pending At Discharge Pending Labs Order Current Status Blood Culture (Aerobic/Anaerobet Set) Preliminary result Pertinent Physical Exam At Time of DischargePhysical Exam Vitals reviewed. Constitutional: General: She is not in acute distress. Appearance: She is obese. She is not ill-appearing. HENT: Head: Normocephalic and atraumatic. Mouth/Throat: Mouth: Mucous membranes are moist. Eyes: General: No scleral icterus. Cardiovascular: Rate and Rhythm: Normal rate. Pulmonary: Effort: Pulmonary effort is normal. No respiratory distress. Abdominal: General: Abdomen is flat. There is no distension. Palpations: Abdomen is soft. There is no mass. Tenderness: There is abdominal tenderness. Musculoskeletal: General: Normal range of motion. Right lower leg: No edema. Left lower leg: No edema. Skin: General: Skin is warm. Capillary Refill: Capillary refill takes less than 2 seconds. Coloration: Skin is not pale. Findings: No lesion or rash. Neurological: General: No focal deficit present. Mental Status: She is alert and oriented to person, place, and time. Mental status is at baseline. Discharge Disposition/Condition Disposition: Home Condition: Stable (s/sx potential problems absent or manageable) I spent >30 minutes of patient care and instruction time in preparation for this discharge. * Hospital Course - Angelito Martin MD - 02/14/2025 12:24 PM EST Anita Finnegan is a 44 y.o. female with past medical hx significant for thyroid cancer s/p thyroidectomy, colon cancer stage II A s/p sigmoidectomy and adjuvant chemotherapy completed in March2024, COPD who presents with acute on chronic abdominal pain of 3 days duration. 44-year-old femalewho presents for abdominal pain, COPD, anemia, and decreased appetite. [facility] that began 3 to 4 days ago. The pain, described as a sensation of fullness billie to a fluid sac or balloon, is constant unless she takes medication. It intensifies with movement, such as sitting or walking, and was exacerbated by the bumps encountered during her ambulance ride. The pain, rated as an 8 on a scale of 10, is sharp and pulsating, reminiscent of her previous experience with diverticulitis but more severe. She has been experiencing difficulty eating for the past 6 months, often consuming only one small meal per day, equivalent to a slice of pizza. Despite this, she reports no weight loss. She has not vomited since the beginning of the week and reports no hematemesis but was vomiting multiple times prior to that. She has not had a bowel movement in several days, which she attributes to discontinuingMiraLAX. . She experiences sharp pain during urination but reports no dysuria or hematuria. She reports no fever, chills, chest pain, or new respiratory symptoms. She has a history of thyroid cancer, treated with thyroidectomy at [facility] in 2019, and colon cancer, for which she completed treatment in Mar 2024. She has a history of cholecystectomy, right knee surgery for a fractured patella, cone surgery on her cervix, , and tubal ligation. She has a history of COPD and is under the care of a mottler machine feeder in [place], who has referred her to pulmonary rehabilitation starting Friday. She quit smoking 2 months ago and now vapes. She reports no alcohol or drug use. She lives with her adult children who assist with her care. 02/13/2025: Patient is still lying in bed endorsing severe abdominal pain that is a little bit better. Continues to describe it has a bag. Interventional Radiology consulted awaiting to your recommendations. Interventional Oxy. Concern for possible pain, blasts for interventional pain for celiac plexus nerve block. 02/14/2025: Patient continues to endorse severe abdominal pain. She would like to go home as there is no intervention at this time. [facility] Care was consulted who [facility] dose [facility]. Juanita Finnegan is a 44 y.o. female with a known medical history of thyroid cancer s/p thyroidectomy, colon cancer stage II A s/p sigmoidectomy and adjuvant chemotherapy completed in March 2024, COPD who presents with acute on chronic abdominal pain of 3 days duration. Acute on chronic abdominal pain Hypotension likely 2/2 hypovolemia in the context of vomiting and decreased oral intake Malnutrition - The patient reports severe abdominal pain that started 3-4 days ago - hemodynamically stable after IV fluids - Labs with WBC 7.7, Hgb 9.5, normal renal function, albumin 2.8 - was significantly hypotensive is OSH 69/57 but improved significantly after IV fluids. No signs of infection. Lactate and procal are negative. CRP is elevated but could be explained by her colonic malignancy - A CT scan from an outside hospital did not show any infectious process but revealed necrotic lymph nodes, which might be causing the pain. - IV fluids as needed - follow blood cultures - hold off antibiotics for now - PT, OT - nutrition evaluation - Interventional Radiology for possible drainage of necrotic lymph nodes--> outpatient follow up - Interventional pain for celiac nerve block. Normocytic anemia - The patient is slightly anemic with a hemoglobin level of 9.5. - No signs of acute blood loss - monitor Hgb - Start iron ferrous sulfate 325. Colon cancer stage IIA - S/p sigmoidectomy and adjuvant FOLFOX, CEA is 18.0. - CT abdomen shows necrotic retroperitoneal lymph nodes - consider oncology consult in the morning Chronic obstructive pulmonary disease (COPD). - The patient has COPD and is currently using Ventolin and Stiolto for management. - She has a chronic smoker's cough but stopped smoking 2 months ago and now vapes. - Anoro while admitted (stiolto non formulary ) - PRN albuterol Hepatitis B - Consider resuming tenofovir if appropriate Thyroid cancer. - The patient had thyroid cancer in 2019 and underwent a thyroidectomy at [facility]. - She is currently taking levothyroxine for thyroid management. 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 Extremity Examination RLE Assessment: Within Functional Limits Manual Muscle Testing - RLE: Within functional limits Hip flexion: 3+ Knee Extension: 5 Ankle Dorsiflexion: 5 Light Touch: Right Lower Extremity: Intact Left Lower Extremity Examination LLE Assessment: Within Functional Limits Manual Muscle Testing: Within functional limits Hip flexion: 3+ Knee Extension: 5 Ankle Dorsiflexion: 5 Light Touch: Left Lower Extremity: Intact Perception/Coordination Bed Mobility Bed Mobility Exam: Supine to Sit Level of [place]: Independent Bed Mobility Exam: Sit to Supine Level of [place]: Independent Transfers Transfer Interventions: Pt required min initial cues for body positioning and safety. Transfer Exam: Sit to stand Level of [place]: Stand-by assist Physical/Nonphysical Assist: Supervision, Verbal Cues Transfer Exam: Stand to Sit Level of [place]: Stand-by assist Physical/Nonphysical Assist: Supervision, Verbal Cues Balance Postural Appearance Posture: Forward head, Rounded shoulders Static Sitting Balance Static Sitting-Balance Support: No upper extremity support, Feet supported Static Sitting-Level of Assistance: Independent Dynamic Sitting Balance Dynamic Sitting-Balance Support: No upper extremity support, Feet supported Dynamic Sitting-Balance: Lateral weight shifts, Anterior/Posterior weight shifts Level of Assistance: Standby assisst Static Standing Balance Static Standing-Balance Support: No upper extremity supported Static Standing-Level of Assistance: Standby assist Dynamic Standing Balance Dynamic Standing-Balance Support: No upper extremity support Dynamic Standing Level of Assistance: Contact guard (progressing to SBA) Gait Training (8 minutes) Device: No device Assistance: Contact guard assist, Minimal verbal cues (progressing to SBA) Distance: 1x85 feet Gait Analysis: Pt displayed decreased gait speed, increased ELLIS, decreased kevin, and decreased stride length. Gait Training Interventions: Pt required min initial cues for safety. Pt performed 180 degree turn with no LOB episodes. Standardized Assessments Standardized Assessments Standardized Assessments: [facility] 6-Clicks Mobility Assessment [facility] 6-Clicks Mobility Assessment Difficulty patient has turning over in bed (including adjusting bedclothes, sheets, and blankets)?:None Difficulty patient has sitting down on and standing up from a chair with arms (wheelchair, bedside commode, etc.)?: None Difficulty patient has moving from lying on back to sitting on the side of the bed?: None How much help does the patient need moving to and from a bed to a chair (including a wheelchair)?: None How much help does the patient need to walk in hospital room?: None How much help does the patient need climbing 3-5 steps with a railing?: A little [facility] 6-Clicks Mobility Assessment Total : 23 Assessment Pt participated well during PT initial evaluation and intervention. Pt displayed good safety awareness and no LOB with all mobility and transfers. Pt reported no concerns with returning home and has appropriate level of assistance available if needed. Pt reported being at baseline level mobility, balance, and strength, only limited by pain at this time. Pt presents with decreased overall activitytolerance, which is also present at her baseline, pt would benefit from rollator for increased independence and safety with community access, as well as shower chair for energy conservation, as pt reported requiring rest break after showers due to significant fatigue from standing to shower. Following PT initial evaluation, pt with no further skilled acute PT needs. PT will sign off at this time. Diagnosis: Acute on chronic abdominal pain Eval Complexity History Profile: 1 - 2 personal factors and/or comorbidities Clinical Presentation: Stable and/or uncomplicated characteristics Clinical Decision Making: Low complexity PT Recommendations Discharge Destination: Home with assistance Discharge Equipment: Rollator, Shower chair Plan Patient no longer demonstrates need for inpatient physical therapy services. Patient to be discharged from physical therapy. Written by Clemente Sharp on 02/13/25 at 1:59 PM. * Progress Notes - Aurelio Pimentel - 02/13/2025 10:21 AM EST Occupational Therapy Evaluation/Discharge Summary Patient Name: Anita Finnegan Today's Date: 02/13/2025 OT Discharge Recommendations: Home with assistance Equipment Recommended: Shower chair, Rollator History Juanita Finnegan is 44 y.o. female admitted 02/12/2025 for work-up of Hypotension due to hypovolemia. Problem List Active Hospital Problems Diagnosis Date Noted Hypotension due to hypovolemia 02/13/2025 Hypotension 02/13/2025 Lymph node enlargement 02/13/2025 Colon cancer (CMS/HCC) 01/15/2024 Recurrent thyroid cancer (CMS/HCC) 12/10/2021 Procedures Past Medical History Patient has a past medical history of Anemia (When i was in low grade school 1- 4), Arthritis, Coloncancer (CMS/HCC), Colon cancer (CMS/HCC), COPD (chronic obstructive pulmonary disease), Cyst of uterus, DDD (degenerative disc disease), cervical (01/21/2024), Dental disease (01/21/2024), Diverticulitis, Drug abuse, Exercise tolerance finding (01/21/2024), Fractured hand, Headaches, Hearing trouble, Hepatitis B, HPV in female, Hyperlipidemia, Hypothyroidism, IV drug abuse, Left breast mass, Lungcancer (CMS/HCC), Nicotine addiction, Ovarian cyst, and Traumatic subdural hematoma (CMS/HCC) (12/2019). Past Surgical History Patient has a past surgical history that includes Total thyroidectomy (Bilateral, 09/09/2019); Modified radical neck dissection (Bilateral, 09/09/2019); section, classic; Tubal ligation; Tonsillectomy; Cholecystectomy; Knee surgery (Right); Modified radical neck dissection (Right, 12/10/2021); Colon surgery; cervical conization; Colonoscopy; Upper gastrointestinal endoscopy; Portacath placement; and Bladder diverticulectomy. Precautions Medical Precautions: Fall precautions Subjective Patient agreeable to initial OT evaluation this a.m. Participants in Care Family/Caregiver Present: No Chargemaster Analyst: Not Applicable Presentation Oxygen Therapy: None (Room air) Lines and Tubes: Intravenous access Pre-Session: Supine, Head of bed elevated, Lines intact Post-Session: Supine, Head of bed elevated, Lines intact, RN notified, Call light in reach Home Living/Set-up Lives With: Alone, Daughter, Son Home Type: Mobile home Home Layout: One level, Stairs to enter without rails Number of Stairs: 5 Bathroom: Tub/Shower: Walk-in shower Bathroom: Toilet: Standard Prior Level of Function Receives Help From: No assist required prior to admission Level of Mobility: Ambulatory- community Mobility [place]: Independent gait without device History of Falls: No ADL Performance: Independent Patient/Family Goals Statement Objective Pain Patient c/o abdominal pain. RN present. Delirium Screening RASS: Alert and calm Confusion Assessment Method-ICU (CAM-ICU/PCAM-ICU) Feature 3: Altered Level of Consciousness: Negative Cognition Overall Cognitive Status: Within Functional Limits Arousal/Alertness: Appropriate responses to stimuli Mood/Behavior: Alert Orientation Level: Oriented X4 Single Step Commands: Consistently Multi-Step Commands: Consistently Method of Communication: Verbal Right Upper Extremity Examination RUE ROM Assessment RUE Assessment: Within Functional Limits Manual Muscle Testing - RUE: Within functional limits Sensation Light Touch: Right Upper Extremity: Intact Left Upper Extremity Examination LUE ROM Assessment LUE Assessment: Within Functional Limits Manual Muscle Testing - LUE: Within functional limits Sensation Light Touch: Left Upper Extremity: Intact Right Lower Extremity Examination RLE ROM Assessment RLE Assessment: Within Functional Limits Manual Muscle Testing - RLE: Within functional limits Sensation Light Touch: Right Lower Extremity: Intact Left Lower Extremity Examination LLE ROM Assessment LLE Assessment: Within Functional Limits Manual Muscle Testing: Within functional limits Sensation Light Touch: Left Lower Extremity: Intact Bed Mobility Bed Mobility Exam: Supine to Sit Level of [place]: Independent Bed Mobility Exam: Sit to Supine Level of [place]: Independent Transfers Transfer Exam: Sit to stand Level of [place]: Stand-by assist Physical/Nonphysical Assist: Verbal Cues Transfer Exam: Stand to Sit Level of [place]: Stand-by assist Physical/Nonphysical Assist: Verbal Cues Functional Mobility Device: No device Assistance: Standby assist Distance : 85' Therapeutic Activity (10 minutes) Please refer to bed mobility and transfers for intervention details. Patient required verbal cueingand physical assist (hand and feet placement) for set-up, initiation, facilitation, sequencing, andoverall execution of instructed tasks. Therapeutic activity focused on functional task training in order to promote functional strengthening, maximize activity tolerance, and enhance safety awareness. Standardized Assessments Manuel Index Feeding: Independent Bathing: Independent (or in Shower) Grooming: Independent face/hair/teeth/shaving (implements provided) Dressing: Independent (including buttons, zips, laces etc.) Bowels: Continent Bladder: Continent Toilet Use: Independent (on and off, dressing, wiping) Transfers (Bed to Chair and Back): Minor help (verbal or physical) Mobility (on Level Surfaces): Walks with help or one person (verbal or physical) > 50 yards Stairs: Needs help (verbal, physical, carrying aid) Total Score: 85 Assessment Patient reports she is at her baseline of function this a.m. Patient has DME needs upon dishcarge, but no skilled OT needs at this time. OT will complete orders and sign off. OT Findings: Evaluation/Treatment Tolerance: Patient limited by pain, Patient limited by fatigue Barriers to Discharge: Comorbidities Eval Complexity Occupational Profile: Expanded review of medical/therapy records and additional review of physical,cognitive, or psychosocial history Performance Deficits: Body functions, Body structures Clinical Decision Making: Low Overall Eval complexity: Low OT Recommendations Discharge Destination: Home with assistance Discharge Equipment: Shower chair, Rollator Plan Patient no longer demonstrates need for inpatient occupational therapy services. Patient to be discharged from occupational therapy. Written by Aurelio Pimentel on 02/13/25 at 12:28 PM. * Consults - Manuela Pedersen APRN, DNP - 02/13/2025 8:57 AM ESTAssociated Order(s): IP CONSULT TO INTERVENTIONAL RADIOLOGY 02/13/25 Patient: Juanita Finnegan Date of : 1980/44 y.o. Requesting Service: Angelito Martin MD Chief Complaint: Abdominal pain Reason for Consult: Lymph node biopsy History of Present Illness: Anita Finnegan is a 44 y.o. female with a past medical history of thyroid cancer s/p thyroidectomy, colon cancer stage II A s/p sigmoidectomy and adjuvant chemotherapy completed in March 2024, COPD. CT AP on 01/11 noted increased retrocrural and retroperitoneal adenopathy. She presents with acute on chronic abdominal pain of 3 days duration with poor oral intake. OSH hospital CT AP 02/12 noted worsening retrocrural and retroperitoneal adenopathy concern of necrotic lymph node. Patient was hypotensive at the OSH and transferred to . Patient was resuscated with IVF and currently VSS. VIR was consulted for lymph node biopsy. History and admission information obtained from chart review of primary and consulting teams notation, as well as speaking directly to consulting team. The following portions of the chart were reviewed this encounter and updated as appropriate: Review of Systems: Deferred. Past Medical History[1] Surgical History[2] Social History[3] Family History: Personally reviewed and noncontributory. Allergies[4] Objective: All laboratory, images, tracings, and vital sign data are personally reviewed unless otherwise noted. VITALS: Temp: [36.4 ??C (97.6 ??F)-36.8 ??C (98.2 ??F)] 36.4 ??C (97.6 ??F) Heart Rate: [70-87] 87 Resp: [16-20] 20 BP: (95-114)/(60-73) 110/66 There is no height or weight on file to calculate BMI. I & O SUMMARY No intake/output data recorded. No intake/output data recorded. MEDICATIONS: Current Medications[5] LABS (PAST 18Labs in last 18 hours) CBC WBC 6.21 Hb 10.5 (L) Plt 273 Hct 33.0 (L) INR ?? PTT ?? Anti-Xa ?? BMP Na 141 Cl 107 BUN 8 Glu 89 K 4.4 Co2 27 Cr 0.67 Ca 8.7 (L) Mg 1.7 (L) Phos 3.0 Lactate ?? LFT AST 21 AlkPhos 116 (H) T Prot 6.4 ALK 13 Bili 0.2 Alb ?? D.Bili ?? HOURS) EXAM: Deferred. Radiographics/Diagnostics: Imaging personally reviewed and reviewed with attending. === 02/12/25 === CT OUTSIDE IMAGES === 01/22/24 === XR CHEST 1 VIEW - Narrative - CLINICAL INDICATION: Port placement TECHNIQUE: XR CHEST 1 VIEW COMPARISON: Chest radiograph outside images dated December 13, 2023 FINDINGS: Interval placement of right-sided chest wall port with CVC tip terminating at the mid SVC. No pneumothorax. No consolidation or pleural effusion. Interval removal of left PICC line on prior exam. Cardiac silhouette and mediastinal contours are normal. - Impression - Interval placement of right-sided chest wall port with CVC tip terminating at the mid SVC. No pneumothorax. CRITICAL RESULT: No. COMMUNICATION: Per this written report. By electronically signing this report, I, the attending physician, attest that I have personally reviewed the images/data for the above examination(s) and agree with the final edited report. Drafted by Alejandro White MD on 01/22/2024 10:18 AM Final report signed by Cristian Valdez MD on 01/22/2024 10:41 AM No echocardiogram results found for the past 12 months Assessment & Plan: Acute on chronic abdominal pain Concern for necrotic retroperitoneal lymph node Hypotension likely 2/2 hypovolemia in the context of vomiting and decreased oral intake Malnutrition - Severe abdominal pain that started 3-4 days ago - Labs with WBC 7.7, Hgb 9.5, normal renal function, albumin 2.8 - Personally reviewed CT AP on 01/11 noted increased retrocrural and retroperitoneal adenopathy. Increased retrocrural adenopathy, with an index node measuring 1.8 cm. Increased retroperitoneal adenopathy. For example left para- aortic lymph notes measure up to 1.6 cm. A right common iliac lymph node measures 9 mm. - A CT scan from an outside hospital did not show any infectious process but revealed necrotic lymph nodes, - INR ??, Plt 273 - VSS, Afebrile Colon cancer stage II A s/p sigmoidectomy - adjuvant chemotherapy completed in March 2024 PLAN: - Will schedule as outpatient - Will see in clinic prior to procedure. - [facility] clinic outpatient ordered Case discussed with attending physician, Dr. Metzger. Thank you for allowing us to participate in the care of this patient. Manuela Pedersen APRN, DNP Interventional Radiology [phone] [1] Past Medical History: Diagnosis Date Anemia When i was in low grade school 1-4 Arthritis Colon cancer (CMS/HCC) Colon cancer (CMS/HCC) COPD (chronic obstructive pulmonary disease) Cyst of uterus DDD (degenerative disc disease), [...] (CMS/HCC) 12/2019 with left nasal bone fracture [2] Past Surgical History: Procedure Laterality Date BLADDER DIVERTICULECTOMY CERVICAL CONIZATION SECTION, CLASSIC CHOLECYSTECTOMY COLON SURGERY diverticulitis- colon cancer found COLONOSCOPY KNEE SURGERY Right patella repair MODIFIED RADICAL NECK DISSECTION Bilateral 09/09/2019 MODIFIED RADICAL NECK DISSECTION Right 12/10/2021 PORTACATH PLACEMENT TONSILLECTOMY TOTAL THYROIDECTOMY Bilateral 09/09/2019 TUBAL LIGATION UPPER GASTROINTESTINAL ENDOSCOPY [3] Social History Tobacco Use Smoking status: Every Day Current packs/day: 1.00 Average packs/day: 1 pack/day for 32.5 years (32.5 ttl pk-yrs) Types: Cigarettes Start date: 03/31/1994 Passive exposure: Current Smokeless tobacco: Never Tobacco comments: Vaping Vaping Use Vaping status: Former Start date: 03/31/2021 Substances: Nicotine, Flavoring Devices: Refillable tank Substance Use Topics Alcohol use: Yes Alcohol/week: 2.0 standard drinks of alcohol Types: 2 Shots of liquor per week Comment: Occasional Drug use: Not Currently Types: Marijuana Comment: 01/21/24 no use for last 2 months [4] No Known Allergies [5] Current Facility-Administered Medications: acetaminophen (Tylenol) tablet 650 mg, 650 mg, Oral, q8h PRN, Al Werner Barber MD albuterol 108 (90 Base) MCG/ACT inhaler 2 puff, 2 puff, Inhalation, q4h PRN, Al Werner Barber MD cyclobenzaprine (Flexeril) tablet 5 mg, 5 mg, Oral, TID PRN, Al Nimri, Werner W, MD enoxaparin (Lovenox) syringe 40 mg, 40 mg, Subcutaneous, Daily, Werner Grullon MD, 40 mg at 02/13/25 0817 HYDROmorphone (Dilaudid) injection 0.5 mg, 0.5 mg, Intravenous, q4h PRN, Werner Grullon MD levothyroxine (Synthroid, Levoxyl) tablet 125 mcg, 125 mcg, Oral, Daily, Werner Grullon MD, 125 mcg at 02/13/25 0850 magnesium sulfate IVPB 4 g, 4 g, Intravenous, Once, Angelito Martin MD, Last Rate: 25 mL/hr at 02/13/25 0817, 4 g at 02/13/25 0817 ondansetron (Zofran) injection 4 mg, 4 mg, Intravenous, q6h PRN, Werner Grullon MD oxyCODONE (Roxicodone) immediate release tablet 5 mg, 5 mg, Oral, q4h PRN, Werner Grullon MD, 5 mg at 02/13/25 0613 Insert peripheral IV, , , Once AND Saline lock IV, , , Once AND sodium chloride 0.9 % flush10 mL, 10 mL, Intravenous, q12h AND sodium chloride 0.9 % flush 10 mL, 10 mL, Intravenous, PRN,Werner Grullon MD [START ON 02/14/2025] tenofovir disoproxil fumarate (Viread) tablet 300 mg, 300 mg, Oral, Daily, Angelito Martin MD Umeclidinium-Vilanterol (Anoro) 62.5-25 MCG/ACT aerosol powder 1 Inhalation, 1 Inhalation, Inhalation, Daily, Werner Grullon MD Current Outpatient Medications: albuterol 108 (90 Base) MCG/ACT inhaler, INHALE 2 PUFFS BY MOUTH FOUR TIMES DAILY NEEDED FOR SHORTNESS OF BREATH OR WHEEZING, Disp: , Rfl: cyclobenzaprine (Flexeril) 10 MG tablet, Take 1 tablet (10 mg) by mouth 3 (three) times a day if needed for muscle spasms., Disp: , Rfl: docusate sodium (Colace) 100 MG capsule, take one (1) capsule by mouth once daily, Disp: , Rfl: ergocalciferol 1.25 MG (18587 UT) capsule, TAKE ONE (1) CAPSULE BY MOUTH ONE (1) TIME PER WEEK., Disp: 12 capsule, Rfl: 3 HYDROcodone-acetaminophen (Edson) 7.5-325 MG tablet, TAKE ONE (1) TABLET THREE (3) TIMES A DAY BY ORAL ROUTE AFTER MEAL(S) FOR 30 DAYS., Disp: , Rfl: ipratropium-albuterol (Duo-Neb) 0.5-2.5 mg/3 mL nebulizer solution, Inhale 3 mL 4 times a day by nebulization route as directed for 30 days., Disp: , Rfl: levothyroxine (Synthroid, Levoxyl) 125 MCG tablet, Take 1 tablet by mouth daily., Disp: 90 tablet, Rfl: 1 prochlorperazine (Compazine) 10 MG tablet, , Disp: , Rfl: tenofovir disoproxil fumarate (Viread) 300 MG tablet, Take 1 tablet (300 mg) by mouth daily., Disp:30 tablet, Rfl: 11 * Progress Notes - Angelito Martin MD - 02/13/2025 6:41 AM EST Subjective Anita Finnegan is a 44 y.o. female with past medical hx significant for thyroid cancer s/p thyroidectomy, colon cancer stage II A s/p sigmoidectomy and adjuvant chemotherapy completed in March2024, COPD who presents with acute on chronic abdominal pain of 3 days duration. 44-year-old femalewho presents for abdominal pain, COPD, anemia, and decreased appetite. She was transferred from OSHdue to persistent abdominal pain that began 3 to 4 days ago. The pain, described as a sensation of fullness billie to a fluid sac or balloon, is constant unless she takes medication. It intensifies with movement, such as sitting or walking, and was exacerbated by the bumps encountered during her ambulance ride. The pain, rated as an 8 on a scale of 10, is sharp and pulsating, reminiscent of her previous experience with diverticulitis but more severe. She has been experiencing difficulty eating for the past 6 months, often consuming only one small meal per day, equivalent to a slice of pizza. Despite this, she reports no weight loss. She has not vomited since the beginning of the week and reports no hematemesis but was vomiting multiple times prior to that. She has not had a bowel movement in several days, which she attributes to discontinuingMiraLAX. . She experiences sharp pain during urination but reports no dysuria or hematuria. She reports no fever, chills, chest pain, or new respiratory symptoms. She has a history of thyroid cancer, treated with thyroidectomy at [facility] in 2019, and colon cancer, for which she completed treatment in Mar 2024. She has a history of cholecystectomy, right knee surgery for a fractured patella, cone surgery on her cervix, , and tubal ligation. She has a history of COPD and is under the care of a mottler machine feeder in [place], who has referred her to pulmonary rehabilitation starting Friday. She quit smoking 2 months ago and now vapes. She reports no alcohol or drug use. She lives with her adult children who assist with her care. 02/13/2025: Patient is still lying in bed endorsing severe abdominal pain that is a little bit better. Continues to describe it has a bag. Interventional Radiology consulted awaiting to your recommendations. Review of Systems Gastrointestinal: Positive for abdominal distention (noted to have a bad filled especially when standing or moving around) and abdominal pain. All other systems reviewed and are negative. Objective Vitals Temp: [36.5 ??C (97.7 ??F)-36.8 ??C (98.2 ??F)] 36.7 ??C (98.1 ??F) Heart Rate: [70-83] 70 Resp: [16-20] 18 BP: (95-114)/(60-73) 95/60 Physical Exam Vitals reviewed. Exam conducted with a bridge ironworker helper present. Constitutional: General: She is not in acute distress. Appearance: Normal appearance. She is obese. She is not ill-appearing. HENT: Head: Normocephalic and atraumatic. Mouth/Throat: Mouth: Mucous membranes are moist. Eyes: General: No scleral icterus. Pupils: Pupils are equal, round, and reactive to light. Cardiovascular: Rate and Rhythm: Normal rate. Pulses: Normal pulses. Heart sounds: No murmur heard. No friction rub. No gallop. Pulmonary: Effort: Pulmonary effort is normal. Chest: Comments: Right-sided chest wall port no erythema or discharge Abdominal: General: Abdomen is flat. Musculoskeletal: General: Normal range of motion. Right lower leg: No edema. Left lower leg: No edema. Skin: General: Skin is warm. Neurological: General: No focal deficit present. Mental Status: She is alert and oriented to person, place, and time. Mental status is at baseline. Assessment & Plan Hypotension due to hypovolemia Recurrent thyroid cancer (CMS/HCC) Colon cancer (CMS/HCC) Hypotension Juanita Finnegan is a 44 y.o. female with a known medical history of thyroid cancer s/p thyroidectomy, colon cancer stage II A s/p sigmoidectomy and adjuvant chemotherapy completed in March 2024, COPD who presents with acute on chronic abdominal pain of 3 days duration. Acute on chronic abdominal pain Hypotension likely 2/2 hypovolemia in the context of vomiting and decreased oral intake Malnutrition - The patient reports severe abdominal pain that started 3-4 days ago - hemodynamically stable after IV fluids - Labs with WBC 7.7, Hgb 9.5, normal renal function, albumin 2.8 - was significantly hypotensive is OSH 69/57 but improved significantly after IV fluids. No signs of infection. Lactate and procal are negative. CRP is elevated but could be explained by her colonic malignancy - A CT scan from an outside hospital did not show any infectious process but revealed necrotic lymph nodes, which might be causing the pain. - IV fluids as needed - follow blood cultures - hold off antibiotics for now - PT, OT - nutrition evaluation - Interventional Radiology for possible drainage of necrotic lymph nodes--> outpatient follow up - Repeat CT scan with by mouth contrast Normocytic anemia - The patient is slightly anemic with a hemoglobin level of 9.5. - No signs of acute blood loss - monitor Hgb - Start iron ferrous sulfate 325. Colon cancer stage IIA - S/p sigmoidectomy and adjuvant FOLFOX, CEA is 18.0. - CT abdomen shows necrotic retroperitoneal lymph nodes - consider oncology consult in the morning Chronic obstructive pulmonary disease (COPD). - The patient has COPD and is currently using Ventolin and Stiolto for management. - She has a chronic smoker's cough but stopped smoking 2 months ago and now vapes. - Anoro while admitted (stiolto non formulary ) - PRN albuterol Hepatitis B - Consider resuming tenofovir if appropriate Thyroid cancer. - The patient had thyroid cancer in 2019 and underwent a thyroidectomy at [facility]. - She is currently taking levothyroxine for thyroid management. Will continue Medically Ready for Discharge:Anticipated in 2-4 Days * H&P - Werner Grullon MD - 02/13/2025 1:27 AM ESTAssociated Order(s): Consult to [facility] Images from the original note were not included. Consult to [facility] Consult performed by: Werner Grullon MD Consult ordered by: Jaylin Vanegas MD Subjective Chief complaint Abdominal pain- 3 days MANAGER BUSINESS PROCESS History Of Present Illness Verbal consent was obtained to use ambient listening technology to assist in the documentation of the encounter: yes Anita Finnegan is a 44 y.o. female with past medical hx significant for thyroid cancer s/p thyroidectomy, colon cancer stage II A s/p sigmoidectomy and adjuvant chemotherapy completed in March2024, COPD who presents with acute on chronic abdominal pain of 3 days duration. History of Present Illness Reason for Admit: Persistent abdominal pain. The patient is a 44-year-old female who presents for abdominal pain, COPD, anemia, and decreased appetite. She was transferred from [facility] due to persistent abdominal pain that began 3 to 4 days ago. The pain, described as a sensation of fullness billie to a fluid sac or balloon, is constant unless she takes medication. It intensifies with movement, such as sitting or walking, and was exacerbated by the bumps encountered during her ambulance ride. The pain, rated as an 8 on a scale of 10, is sharp and pulsating, reminiscent of her previous experience with diverticulitis but more severe. She has been experiencing difficulty eating for the past 6 months, often consuming only one small meal per day, equivalent to a slice of pizza. Despite this, she reports no weight loss. She has not vomited since the beginning of the week and reports no hematemesis but was vomiting multiple times prior to that. She has not had a bowel movement in several days, which she attributes to discontinuingMiraLAX. . She experiences sharp pain during urination but reports no dysuria or hematuria. She reports no fever, chills, chest pain, or new respiratory symptoms. She has a history of thyroid cancer, treated with thyroidectomy at [facility] in 2019, and colon cancer, for which she completed treatment in Mar 2024. She has a history of cholecystectomy, right knee surgery for a fractured patella, cone surgery on her cervix, , and tubal ligation. She has a history of COPD and is under the care of a mottler machine feeder in [place], who has referred her to pulmonary rehabilitation starting Friday. She quit smoking 2 months ago and now vapes. She reports no alcohol or drug use. She lives with her adult children who assist with her care. SOCIAL HISTORY The patient stopped smoking about 2 months ago and currently vapes. The patient does not drink alcohol or use drugs. The patient lives with her adult children. Medical/Surgical/Social/Family History I have reviewed and updated the patient history. Travel History Relevant International Travel History: Travel Screening Question Response Have you been in contact with someone who was sick? No / Unsure Do you have any of the following new or worsening symptoms? None of these Have you traveled internationally or domestically in the last month? No Travel History Travel since 01/13/25 No documented travel since 01/13/25 Relevant Domestic Travel History: no Immunizations VACCINE / DOSE DATE DATE DATE Flu 01/30/2017 11/16/2021 02/20/2024 Tetanus 02/23/2014 06/29/2015 Pneumovax Shingles Allergies Patient has no known allergies. Outpatient medications in system Home Medications[1] Medications ordered for hospitalization Current Scheduled Medications[2] Current Continuous Medications[3] Current PRN Medications[4] Objective Review of Systems Constitutional: Positive for activity change and appetite change. Respiratory: Negative for cough and shortness of breath. Cardiovascular: Negative for chest pain. Gastrointestinal: Positive for abdominal pain, constipation, nausea and vomiting. Genitourinary: Negative for dysuria. Musculoskeletal: Positive for arthralgias and back pain. Physical Exam Vitals reviewed. Constitutional: General: She is not in acute distress. HENT: Head: Normocephalic and atraumatic. Cardiovascular: Rate and Rhythm: Normal rate. Pulmonary: Effort: Pulmonary effort is normal. Breath sounds: Normal breath sounds. Abdominal: General: Bowel sounds are normal. Palpations: Abdomen is soft. Tenderness: There is abdominal tenderness (mild left sided). Skin: General: Skin is warm and dry. Neurological: Mental Status: She is alert and oriented to person, place, and time. Mental status is at baseline. Psychiatric: Behavior: Behavior normal. Thought Content: Thought content normal. Last Recorded Vitals Blood pressure 102/64, pulse 75, temperature 36.5 ??C (97.7 ??F), resp. rate 16, last menstrual period 04/07/2022, SpO2 91%. Results Review I have reviewed the latest lab and imaging results. Assessment & Plan Hypotension due to hypovolemia Recurrent thyroid cancer (CMS/HCC) Colon cancer (CMS/HCC) Hypotension Assessment & Plan . 44 y.o. female with past medical hx significant for thyroid cancer s/p thyroidectomy, colon cancer stage II A s/p sigmoidectomy and adjuvant chemotherapy completed in March 2024, COPD who presents with acute on chronic abdominal pain of 3 days duration. She is admitted and treated for: Acute on chronic abdominal pain Hypotension likely 2/2 hypovolemia in the context of vomiting and decreased oral intake Malnutrition - The patient reports severe abdominal pain that started 3-4 days ago - hemodynamically stable after IV fluids - Labs with WBC 7.7, Hgb 9.5, normal renal function, albumin 2.8 - was significantly hypotensive is OSH 69/57 but improved significantly after IV fluids. No signs of infection. Lactate and procal are negative. CRP is elevated but could be explained by her colonic malignancy - A CT scan from an outside hospital did not show any infectious process but revealed necrotic lymph nodes, which might be causing the pain. Plan - discussed with ED, will admit - IV fluids as needed - follow blood cultures - hold off antibiotics for now - PT, OT - nutrition evaluation Normocytic anemia - The patient is slightly anemic with a hemoglobin level of 9.5. - No signs of acute blood loss - monitor Hgb - check iron profile, b12 Colon cancer stage IIA - S/p sigmoidectomy and adjuvant FOLFOX - CT abdomen shows necrotic retroperitoneal lymph nodes - check CEA - consider oncology consult in the morning Chronic obstructive pulmonary disease (COPD). - The patient has COPD and is currently using Ventolin and Stiolto for management. - She has a chronic smoker's cough but stopped smoking 2 months ago and now vapes. - Anoro while admitted (stiolto non formulary ) - PRN albuterol Hepatitis B - Consider resuming tenofovir if appropriate Thyroid cancer. - The patient had thyroid cancer in 2019 and underwent a thyroidectomy at [facility]. - She is currently taking levothyroxine for thyroid management. Will continue Venous thromboembolism prophylaxis Patient on enoxaparin Diet Dietary Orders (From admission, onward) Start Ordered 02/13/25125 Adult diet Diet texture: Regular Diet effective now References: IDDSI Diet Texture Guide Question: Diet texture Answer: Regular 02/13/25125 Code Status Full Code [1] (Not in a hospital admission) [2] enoxaparin, 40 mg, Subcutaneous, Daily levothyroxine, 125 mcg, Oral, Daily sodium chloride, 10 mL, Intravenous, q12h [3] [4] PRN medications: acetaminophen, albuterol, cyclobenzaprine, HYDROmorphone, oxyCODONE, Insert peripheral IV AND Saline lock IV AND sodium chloride AND sodium chloride * ED Provider Notes - Juanita Ramirez MD - 02/12/2025 5:47 PM EST Images from the original note were not included. - HPI Chief Complaint Patient presents with Hypotension Anita Finnegan is a 44yo female with history of COPD, thyroid papillary cancer, and colon cancer, presenting with abdominal pain, nausea, and vomiting. Patient states that she developed these symptoms three days ago. Arrived to OSH with BP of 69/57. Was given a total of 3L with adequate response. There was no signs of infection at OSH. Received Zofran, Toradol, and Fentanyl. CT AP remarkablefor retrocrural and retroperitoneal necrotic lymph nodes. On arrival, she complains of generalized abdominal pain. States she last had cancer treatment in May and is in remission. Patient History Past Medical History[1] Surgical History[2] Family History[3] Social History[4] Allergies: Allergies[5] Physical Exam ED Triage Vitals [02/12/25 1758] Temp Heart Rate Resp BP 36.8 ??C (98.2 ??F) 83 20 114/73 SpO2 Temp Source Heart Rate Source Patient Position 98 % Oral Monitor Lying BP Location FiO2 (%) Right arm -- Physical Exam Constitutional: Appearance: Normal appearance. Cardiovascular: Rate and Rhythm: Normal rate and regular rhythm. Pulses: Radial pulses are 2+ on the right side and 2+ on the left side. Pulmonary: Effort: Pulmonary effort is normal. No respiratory distress. Breath sounds: Normal breath sounds. No stridor. No wheezing. Abdominal: General: Abdomen is flat. Palpations: Abdomen is soft. Tenderness: There is generalized abdominal tenderness. Musculoskeletal: Right lower leg: No edema. Left lower leg: No edema. Skin: General: Skin is warm. Neurological: Mental Status: She is alert. Comstock Coma Scale Score: 15 ED Course & MDM - Assessment: 44 y.o. female presents to ED with complaint of abdominal pain, nausea, and vomiting for three days, found to by hypotensive at OSH with CT remarkable for necrotic lymph nodes. It should be noted that the chronic conditions includes COPD, papillary thyroid cancer, and colon cancer, which currently is at goal therapy. This complicates the clinical picture because it Comorbidities: increases the risk for morbidity Differential Diagnosis: gastroenteritis, malignancy, bowel obstruction, hernia, volvulus, electrolyte abnormalities, sepsis, among others In order to fully explore the differential diagnosis the following treatments and tests were ordered: ED Medication Administration from 02/12/2025 0628 to 02/13/2025 0127 Date/Time Order Dose Route Action 02/12/2025 193 EST ketorolac (Toradol) injection 15 mg 15 mg Intravenous Given 02/12/20252023 EST oxyCODONE (Roxicodone) immediate release tablet 5 mg 5 mg Oral Given All Other Orders Ordered Status Ordering Provider 02/13/25 0126 Vital Signs Every 4 hours Placed in And Linked Group Acknowledged WERNER GRULLON 02/13/25 012 Pulse Oximetry Every 4 hours Placed in And Linked Group Acknowledged WERNER GRULLON 02/13/25 012 Full code Continuous Acknowledged WERNER GRULLON 11/125 Adult diet Diet texture: Regular Diet effective now Acknowledged AL WERNER BARBER W 02/13/25125 Okay To Give Nicotine Replacement Until discontinued Acknowledged AL FATOURIWERNER W 02/13/25125 Mobility Orders Until discontinued Acknowledged AL FATOURI WERNER W 02/13/25125 Notify physician (specify parameters) Until discontinued Acknowledged CHICHI LAINEZRIASHUTOSHI W 02/13/25125 Insert peripheral IV Once Placed in And Linked Group Acknowledged AL FATOURIASHUTOSHI W 02/13/25125 Saline lock IV Once Placed in And Linked Group Acknowledged AL NIMRI WERNER W 02/13/25125 Admit to inpatient Once Acknowledged AL ASHUTOSH BARBERI W 02/12/252330 Consult to [facility] Once Specialty: Internal Medicine Provider: (Not yet assigned) JUANITA Navarrete 02/12/252330 ED to floor bed request Once Completed JUANITA RAMIREZ 02/12/252014 Urinalysis with reflex microscopic AND reflex culture (IF UTI SUSPECTED) STAT Final result JAMIR CHIU 02/12/252014 Urinalysis with reflex microscopic (Culture NOT Included) PROCEDURE ONCE Final result JAMIR CHIU 02/12/252014 Urine Jin Panel PROCEDURE ONCE Final result JAMIR CHIU 02/12/251924 CBC w/diff STAT Final result JUANITA RAMIREZ 02/12/251924 Blood Culture (Aerobic/Anaerobet Set) STAT Preliminary result JUANITA RAMIREZ 02/12/251924 CMP STAT Final result JUANITA RAMIREZ 02/12/251924 Magnesium STAT Final result JUANITA RAMIREZ 02/12/251924 Lactic acid, venous STAT Final result JUANITA RAMIREZ 02/12/251924 Lipase STAT Final result JUANITA RAMIREZ 02/12/251924 Hepatitis C Antibody - ED Once Final result JUANITA RAMIREZ 02/12/251924 ED Protocol - HIV 1/2 Antibody/Antigen Screen Once Final result JUANITA RAMIREZ 02/12/251924 ED HIV 1/2 Antibody/Antigen Screen w/Reflex to HIV 1/2 Differentiation PROCEDURE ONCE Final result JUANITA RAMIREZ Clinical Impressions as of 02/13/25 1241 Hypotension, unspecified hypotension type Generalized abdominal pain Nausea and vomiting, unspecified vomiting type Patient was hemodynamically stable, saturating well on room air, afebrile with a GCS of 15 on my initial evaluation. CBC was reviewed and personally interpreted by me as unremarkable for any actionable leukocytosis, anemia, or thrombocytopenia. CMP was reviewed and personally interpreted by me as unremarkable for any actionable electrolyte derangement, elevated creatinine, or transaminitis. Lactate within normal limits at 0.5. Lipase 14. Blood cultures sent given hypotension. Had an interactive discussion with Hospital Medicine about admitting the patient given significant hypotension at outside hospital and new necrotic lymph nodes on CT imaging. After their evaluation, they agreed to admit the patient to their service. Social Determinates of Health Risks (including Economic Stability, Education and level of understanding, Healthcare access and quality and concerning social factors): Lives far away Ultimately, this patient was Was admitted (Admission) The primary encounter diagnosis was Lymph node enlargement. Diagnoses of Hypotension, unspecified hypotension type, Generalized abdominal pain, and Nausea and vomiting, unspecified vomiting type were also pertinent to this visit.. Patient believed to require admission for the listed diagnoses. The Internal Medicine service was consulted for admission and was agreeable to admit to Acute Floor (Med/Surg). ED Prescriptions None Disposition Admit Admitting/Attending Physician: WERNER GRULLON [[id number]] Provider Care Team: JAMAL MODI 9 [[id number]] Are they the primary team?: Yes [1] Follow-Ups: [facility] (Interventional Radiology) Discharge Orders Ambulatory referral to [facility] Authorized - Juanita Ramirez MD PGY-1, Emergency Medicine [1] Past Medical History: Diagnosis Date Anemia When i was in low grade school 1-4 Arthritis Colon cancer (CMS/HCC) Colon cancer (CMS/HCC) COPD (chronic obstructive pulmonary disease) Cyst of uterus DDD (degenerative disc disease), [...] (CMS/HCC) 12/2019 with left nasal bone fracture [2] Past Surgical History: Procedure Laterality Date BLADDER DIVERTICULECTOMY CERVICAL CONIZATION SECTION, CLASSIC CHOLECYSTECTOMY COLON SURGERY diverticulitis- colon cancer found COLONOSCOPY KNEE SURGERY Right patella repair MODIFIED RADICAL NECK DISSECTION Bilateral 09/09/2019 MODIFIED RADICAL NECK DISSECTION Right 12/10/2021 PORTACATH PLACEMENT TONSILLECTOMY TOTAL THYROIDECTOMY Bilateral 09/09/2019 TUBAL LIGATION UPPER GASTROINTESTINAL ENDOSCOPY [3] Family History Problem Relation Name Age of Onset Lung cancer Mother Zara Cárdenas Hypercholesterolemia Mother Zara Cárdenas Hypertension Mother Zara Cárdenas Hypertension Father Brian Serrano Hypercholesterolemia Father Brian Serrano Thyroid disease Father Brian Serrano Thyroid cancer Neg Hx Malig Hyperthermia Neg Hx [4] Tobacco Use Smoking status: Every Day Current packs/day: 1.00 Average packs/day: 1 pack/day for 32.5 years (32.5 ttl pk-yrs) Types: Cigarettes Start date: 03/31/1994 Passive exposure: Current Smokeless tobacco: Never Tobacco comments: Vaping Vaping Use Vaping status: Former Start date: 03/31/2021 Substances: Nicotine, Flavoring Devices: Scandidble tank Substance Use Topics Alcohol use: Yes Alcohol/week: 2.0 standard drinks of alcohol Types: 2 Shots of liquor per week Comment: Occasional Drug use: Not Currently Types: Marijuana Comment: 01/21/24 no use for last 2 months [5] No Known Allergies Juanita Ramirez MD Resident 02/13/25 1243 Cosigned by Jamir Chiu MD at 02/15/2025 7:07 AM EST Associated attestation - Jamir Chiu MD - 02/15/2025 7:07 AM EST I saw and evaluated the patient with the resident/fellow. I discussed the case with the resident/fellow and agree with the findings and plan as documented. * ED Triage Notes - Joselyn Sweet RN - 02/12/2025 5:47 PM EST Patient arrived via [facility] from [place] [facility].. Patient had chief complaint of hypotension.It was found the patient has a necrotic lymph node and there are concerns her stomach cancer is no longer in remission. documented in this encounter Plan of Treatment Upcoming Encounters Date Type Department Care Team ([facility] st Contact Info) Description 03/30/2025 8:30 AM EST Appointment [facility] Infusion Clinic [address] [place] [address] 2025 9:00 AM EST Appointment [facility] Infusion [facility] [address] [place] [address] 04/14/2025 7:45 AM EST Clinical Support [facility] Multidisciplinary Oncology Clinic [address] [place] [address] 04/14/2025 8:00 AM EST Office Visit [facility] Multidisciplinary Oncology Clinic [address] [place] [address] Edison Skaggs MD [address] [place] [address] 04/14/2025 9:30 AM EST Appointment [facility] [address] [place] [address] 04/16/2025 10:30 AM EST Appointment [facility] [address] [place] [address] 04/28/2025 8:30 AM EST Appointment [facility] [address] [place] [address] 04/30/2025 10:00 AM EST Appointment [facility] [address] [place] [address] 06/29/2025 12:30 PM EDT Clinical Support [facility] [address] [address] 06/29/2025 1:00 PM EDT Office Visit [facility] [address] [address] [place] [address] [place] [phone] Scheduled Referrals Name Type Priority Associated Diagnoses Order Schedule Discharge Ambulatory referral to Interventional Pain Outpatient Referral Routine Lymph node enlargement Expected: 02/28/2025, Expires: 08/18/2026 documented as of this encounter Procedures Procedure Name Priority Date/Time Associated Diagnosis Comments PROCALCITONIN, PLASMA STAT 02/14/2025 7:18 AM EST SEDIMENTATION RATE, AUTOMATED STAT 02/14/2025 7:18 AM EST CBC WITH AUTO DIFFERENTIAL STAT 02/14/2025 7:18 AM EST C-REACTIVE PROTEIN, PLASMA STAT 02/14/2025 7:18 AM EST PHOSPHORUS, PLASMA STAT 02/14/2025 7: 18 AM EST MAGNESIUM, PLASMA STAT 02/14/2025 7:1 8 AM EST BASIC METABOLIC PANEL, PLASMA STAT 02/14/2025 7:[address] ABDOMEN PELVIS WO IV CONTRAST Routine 02/13/2025 12:16 PM EST EXTRA TUBE GOLD TOP Routine 02/13/2025 6 :28 AM EST EXTRA TUBES Routine 02/13/2025 6:28 AM EST IRON & TOTAL IRON BINDING CAPACITY, PLASMA (INCLUDES TRANSFERRIN) Routine 02/13/2025 6:28 AM EST CBC WITH AUTO DIFFERENTIAL Routine 02/13/2025 6:28 AM EST PHOSPHORUS, PLASMA Routine 02/13/2025 6: 28 AM EST MAGNESIUM, PLASMA Routine 02/13/2025 6:2 8 AM EST FERRITIN, SERUM Routine 02/13/2025 6:28 AM EST VITAMIN B12, SERUM Routine 02/13/2025 6: 28 AM EST CEA, SERUM Routine 02/13/2025 6:28 AM EST COMPREHENSIVE METABOLIC PANEL, PLASMA Routine 02/13/2025 6:28 AM EST ECG ADULT Routine 02/13/2025 1:40 AM EST BLOOD CULTURE (AEROBIC/ANAEROBIC SET) STAT 02/12/2025 9:07 PM EST URINALYSIS WITH REFLEX MICROSCOPIC AND CULTURE STAT 02/12/2025 8:27 PM EST URINE JIN PANEL STAT 02/12/2025 8:27 PM EST URINALYSIS WITH REFLEX MICROSCOPIC STAT 02/12/2025 8:27 PM EST ED HIV 1/2 ANTIBODY/ANTIGEN SCREEN WITH REFLEX TO HIV I/II DIFFERENTIATION STAT 02/12/2025 7:30 PM EST ED PROTOCOL HIV 1/2 ANTIBODY/ANTIGEN SCREEN W/REFLEX TO HIV 1/2 ANTIBODY DIFFERENTIATION STAT 02/12/2025 7:30 PM EST LACTATE, VENOUS STAT 02/12/2025 7:30 PM EST PROCALCITONIN, PLASMA Add-On 02/12/2025 7:30 PM EST HEPATITIS C ANTIBODY - ED W/REFLEX TO HCV QUANT PCR STAT 02/12/2025 7:30 PM EST CBC WITH AUTO DIFFERENTIAL STAT 02/12/2025 7:30 PM EST C-REACTIVE PROTEIN, PLASMA Add-On 02/12/2025 7:30 PM EST MAGNESIUM, PLASMA STAT 02/12/2025 7:3 0 PM EST LIPASE, PLASMA STAT 02/12/2025 7:30 PM EST COMPREHENSIVE METABOLIC PANEL, PLASMA STAT 02/12/2025 7:30 PM EST documented in this encounter Results * (ABNORMAL) C-Reactive Protein, Plasma (02/14/2025 7:18 AM EST) CRP, Plasma 109.4(H) <=8.0 mg/L 02/14/2025 8:11 AM EST [facility] Blood Venous blood specimen / Unknown Venipuncture / Unknown 02/14/2025 7:18 AM EST 02/14/2025 7:35 AM EST Narrative [facility] - 02/14/2025 8:11 AM EST This CRP test is appropriate for assessment of infection, systemic inflammation and/or tissue injury. To assess cardiovascular disease risk order high sensitivity CRP (CRPH). us Angelito Martin MD LAB BLOOD ORDERABLES Final Res ult Performing Organization Address City/[facility] [address]/ZIP Co de Phone Number [facility] [address] [place] [address] * (ABNORMAL) Sedimentation Rate, Automated (02/14/2025 7:18 AM EST) Pathologist [facility] Sedimentation Rate 99(H) <20 mm/hr 2024 7:52 AM EST [facility] Blood Venous blood specimen / Unknown Venipuncture / Unknown 02/14/2025 7:18 AM EST 02/14/2025 7:35 AM EST us Angelito Martin MD LAB BLOOD ORDERABLES Final Res ult Performing Organization Address City/[facility] [address]/ZIP Co de Phone Number [facility] [address] [place] [address] * Procalcitonin, Plasma (02/14/2025 7:18 AM EST) Procalcitonin, Plasma 0.08 <0.09 ng/mL 02/14/2025 8:27 AM EST [facility] Blood Venous blood specimen / Unknown Venipuncture / Unknown 02/14/2025 7:18 AM EST 02/14/2025 7:35 AM EST Narrative [facility] - 02/14/2025 8:27 AM EST Procalcitonin concentrations in healthy individuals are <0.09 ng/mL. Published data support the following interpretive risk assessment: An elevated procalcitonin result does not always indicate sepsis. Various non-infectious conditions are known to increase procalcitonin. Results should be considered in the context of clinical symptoms and other laboratory tests. Procalcitonin >2.0 ng/mL: Concentrations >2.0 ng/mL on the first day of ICU admission are associated with a higher risk of progression to severe sepsis and/or septic shock. The change in PCT over time may help predict 28 day mortality risk. Please consult [email or web address] for more information. Test performed at [facility]. us Angelito Martin MD LAB BLOOD ORDERABLES Final Res ult [facility] [address] [place] [address] * (ABNORMAL) CBC and Differential (02/14/2025 7:18 AM EST) WBC Count 8.60 3.70 - 10.30 10*3/uL LAB HEMATOLOGY METHOD 02/14/2025 7:42 AM EST [facility] RBC Count 4.48 3.90 - 5.20 10*6/uL LAB HEMATOLOGY METHOD 02/14/2025 7:42 AM EST [facility] HGB 12.4 11.2 - 15.7 g/dL LAB HEMATOLOGY METHOD 02/14/2025 7:42 AM EST [facility] HCT 39.6 34.0 - 45.0 % LAB HEMATOLOGY METHOD 02/14/2025 7:42 AM EST [facility] Platelet Count 352 155 - 369 10*3/uL LAB HEMATOLOGY METHOD 02/14/2025 7:42 AM EST [facility] MCV 88 79 - 98 fL LAB HEMATOLOGY METHOD 02/14/2025 7:42 AM EST [facility] MCH 27.7 26.0 - 32.0 pg LAB HEMATOLOGY METHOD 02/14/2025 7:42 AM EST [facility] MCHC 31.3 30.7 - 35.5 g/dL LAB HEMATOLOGY METHOD 02/14/2025 7:42 AM EST [facility] RDW 14.8(H) 11.5 - 14.5 % LAB HEMATOLOGY METHOD 02/14/2025 7:42 AM EST [facility] MPV 8.9 8.8 - 12.5 fL LAB HEMATOLOGY METHOD 02/14/2025 7:42 AM EST [facility] nRBC 0.0 <=0.0 per 100 WBCs LAB HEMATOLOGY METHOD 02/14/2025 7:42 AM EST [facility] Differential Type Automated LAB HEMATOLOGY METHOD 02/14/2025 7:42 AM EST [facility] Neutrophils % 64 % LAB HEMATOLOGY METHOD 02/14/2025 7:42 AM EST [facility] Lymphocytes % 22 % LAB HEMATOLOGY METHOD 02/14/2025 7:42 AM EST [facility] Monocytes % 8 % LAB HEMATOLOGY METHOD 02/14/2025 7:42 AM EST [facility] Eosinophils % 5 % LAB HEMATOLOGY METHOD 02/14/2025 7:42 AM EST [facility] Basophils % 1 % LAB HEMATOLOGY METHOD 02/14/2025 7:42 AM EST [facility] Immature Granulocytes % 0 % LAB HEMATOLOGY METHOD 02/14/2025 7:42 AM EST [facility] Neutrophils Absolute 5.59 1.60 - 6.10 10*3/uL LAB HEMATOLOGY METHOD 02/14/2025 7:42 AM EST [facility] Lymphocytes Absolute 1.88 1.20 - 3.90 10*3/uL LAB HEMATOLOGY METHOD 02/14/2025 7:42 AM EST [facility] Monocytes Absolute 0.65 0.30 - 0.90 10*3/uL LAB HEMATOLOGY METHOD 02/14/2025 7:42 AM EST [facility] Eosinophils Absolute 0.42 0.00 - 0.50 10*3/uL LAB HEMATOLOGY METHOD 02/14/2025 7:42 AM EST [facility] Basophils Absolute 0.04 0.00 - 0.10 10*3/uL LAB HEMATOLOGY METHOD 02/14/2025 7:42 AM EST [facility] Immature Granulocytes Absolute 0.02 0.00 - 0.06 10*3/uL LAB HEMATOLOGY METHOD 02/14/2025 7:42 AM EST [facility] Blood Venous blood specimen / Unknown Venipuncture / Unknown 02/14/2025 7:18 AM EST 02/14/2025 7:35 AM EST Narrative [facility] - 02/14/2025 7:42 AM EST Therapeutic decision making should be based on absolute values, rather than percentages. us Angelito Martin MD LAB BLOOD ORDERABLES Final Res ult [facility] [address] [place] [address] * Phosphorus, Plasma (02/14/2025 7:18 AM EST) Phosphorus, Plasma 4.0 2.5 - 4.5 mg/dL 02/14/2025 8:11 AM EST [facility] Blood Venous blood specimen / Unknown Venipuncture / Unknown 02/14/2025 7:18 AM EST 02/14/2025 7:35 AM EST Result Ana Luisa Martin MD LAB BLOOD ORDERABLES Final Res ult Performing Organization Address City/[facility] [address]/ZIP Co de Phone Number [facility] [address] [place] [address] * Magnesium, Plasma (02/14/2025 7:18 AM EST) Magnesium, Plasma 2.0 1.9 - 2.4 mg/dL 02/14/2025 8:11 AM EST [facility] Blood Venous blood specimen / Unknown Venipuncture / Unknown 02/14/2025 7:18 AM EST 02/14/2025 7:35 AM EST us Angelito Martin MD LAB BLOOD ORDERABLES Final Res ult [facility] [address] [place] [address] * Basic Metabolic Panel, Plasma (02/14/2025 7:18 AM EST) Glucose, Plasma 86 74 - 99 mg/dL 02/14/2025 8:11 AM EST [facility] BUN, Plasma 7 7 - 21 mg/dL 02/14/2025 8:11 AM EST [facility] Creatinine, Plasma 0.76 0.60 - 1.10 mg/dL 02/14/2025 8:11 AM EST [facility] BUN/Creatinine Ratio 9 02/14/2025 8:11 AM EST [facility] Sodium, Plasma 144 136 - 145 mmol/L 02/14/2025 8:11 AM EST [facility] Potassium, Plasma 4.1 3.6 - 4.9 mmol/L 02/14/2025 8:11 AM EST [facility] Chloride, Plasma 106 97 - 107 mmol/L 02/14/2025 8:11 AM EST [facility] CO2, Plasma 27 22 - 29 mmol/L 02/14/2025 8:11 AM EST [facility] Anion Gap 11 6 - 16 mmol/L 02/14/2025 8:11 AM EST [facility] Total Calcium, Plasma 9.3 8.9 - 10.2 mg/dL 02/14/2025 8:11 AM EST [facility] eGFRcr 98.0 mL/min/1.7 3m*2 02/14/2025 8:11 AM EST [facility] Comment:Reported eGFRcr in m L/min/1.73m2 is based the CKD-EPI 2020 equation that does not use a race coefficient. Blood Venous blood specimen / Unknown Venipuncture / Unknown 02/14/2025 7:18 AM EST 02/14/2025 7:35 AM EST us Angelito Martin MD LAB BLOOD ORDERABLES Final Res ult [facility] [address] [place] [address] * CT Abdomen Pelvis wo IV Contrast (02/13/2025 12:16 PM EST) Anatomical Region Laterality Modality Abdomen, Pelvis Computed Tomogra phy Impressions 02/13/2025 2:00 PM EST Diffuse retroperitoneal and middle mediastinal adenopathy with associated inflammation, unchanged accounting for differences in technique. CRITICAL RESULT: No. COMMUNICATION: Per this written report. Drafted by Jean Kumar MD on 02/13/2025 1:57 PM Final report signed by Jean Kumar MD on 02/13/2025 2:00 PM Narrative 02/13/2025 2:00 PM EST CLINICAL INDICATION: Abdominal pain, acute, nonlocalized TECHNIQUE: Multiple axial CT images were obtained from lung bases through pubic symphysis without the administration of IV contrast. Reformatted images in the coronal and sagittal planes were generated from the axial data set to facilitate diagnostic accuracy. Total DLP (Dose-Length Product): 355.36 mGy.cm. Please note: The reported value represents the total of one or more individual components during the CT acquisition on this date and at this time, and as such, the same value may appear in more than one CT report depending on the interpreting/reporting physicians. COMPARISON: February 12, 2025 FINDINGS: Lower Chest: Included lungs are clear Analysis of the abdominopelvic viscera is limited by the absence of intravenous contrast material. Solid Abdominal Organs: No focal liver lesion. The gallbladder is absent. No bile duct dilation. The pancreas is normal. Calcified granuloma in the spleen. The adrenal glands are normal. There is an exophytic simple cyst in the left kidney. GI Tract/Mesentery/Peritoneum: The esophagus and stomach are normal. There is no evidence of bowel obstruction. No sign of appendicitis. No colonic obstruction or inflammation. No peritoneal nodularity. No free Pelvic Viscera: The bladder is thick-walled. Uterus normal. No pelvic mass Lymph Nodes/Vasculature: There is retroperitoneal adenopathy with associated inflammation. A left periaortic lymph node measures 2.1 cm in short axis. Adenopathy is seen extending into the middle mediastinum. It is unchanged from the day prior. Mild atherosclerosis of aorta and iliacs. Free Fluid: No free fluid Musculoskeletal and Body Wall: No suspicious osseous abnormality Procedure Note Jean Kumar MD - 02/13/2025 CLINICAL INDICATION: Abdominal pain, acute, nonlocalized TECHNIQUE: Multiple axial CT images were obtained from lung bases through pubicsymphysis without the administration of IV contrast. Reformatted images inthe coronal and sagittal planes were generated from the axial data set tofacilitate diagnostic accuracy. Total DLP (Dose-Length Product): 355.36 mGy.cm. Please note: The reportedvalue represents the total of one or more individual components during theCT acquisition on this date and at this time, and as such, the same valuemay appear in more than one CT report depending on theinterpreting/reporting physicians. COMPARISON: February 12, 2025 FINDINGS: Lower Chest: Included lungs are clear Analysis of the abdominopelvic viscera is limited by the absence ofintravenous contrast material. Solid Abdominal Organs: No focal liver lesion. The gallbladder is absent.No bile duct dilation. The pancreas is normal. Calcified granuloma in thespleen. The adrenal glands are normal. There is an exophytic simple cystin the left kidney. GI Tract/Mesentery/Peritoneum: The esophagus and stomach are normal. Thereis no evidence of bowel obstruction. No sign of appendicitis. No colonicobstruction or inflammation. No peritoneal nodularity. No free Pelvic Viscera: The bladder is thick-walled. Uterus normal. No pelvicmass Lymph Nodes/Vasculature: There is retroperitoneal adenopathy withassociated inflammation. A left periaortic lymph node measures 2.1 cm inshort axis. Adenopathy is seen extending into the middle mediastinum. Itis unchanged from the day prior. Mild atherosclerosis of aorta andiliacs. Free Fluid: No free fluid Musculoskeletal and Body Wall: No suspicious osseous abnormality IMPRESSION: Diffuse retroperitoneal and middle mediastinal adenopathy with associatedinflammation, unchanged accounting for differences in technique. CRITICAL RESULT: No. COMMUNICATION: Per this written report. Drafted by Jean Kumar MD on 02/13/2025 1:57 PM Final report signed by Jean Kumar MD on 02/13/2025 2:00 PM Angelito Martin MD IM CT PROCEDURES Final Result * Gold Top (02/13/2025 6:28 AM EST) Extra Hold for add-ons 02/13/2025 9:02 AM EST [facility] Comment:Auto resulted. Blood Venous blood specimen / Unknown 02/13/2025 6:28 AM EST 02/13/2025 6:37 AM EST Angelito Martin MD LAB BLOOD ORDERABLES Final Res ult Performing Organization Address [facility] [address] [facility] [place] [address] * (ABNORMAL) CEA (02/13/2025 6:28 AM EST) CEA, Serum 18.0(H) <4.0 ng/mL 02/13/2025 7:15 AM EST [facility] Blood Venous blood specimen / Unknown Venipuncture / Unknown 02/13/2025 6:28 AM EST 02/13/2025 6:38 AM EST Narrative [facility] - 02/13/2025 7:15 AM EST Normal range for smokers: < 5.5 ng/ml Normal range for non-smokers: <=4.0 ng/ml Performed by [employer] electrochemiluminescent immunoassay. Results obtained with different test methods or kits cannot be used interchangeably. Werner Grullon MD LAB BLOOD ORDERABLES Final Re sult Performing Organization Address [facility] [address] [facility] [place] [address] * Vitamin B12 (02/13/2025 6:28 AM EST) Vitamin B12, Serum 445 210 - 1,033 pg/mL 02/13/2025 7:23 AM EST [facility] Blood Venous blood specimen / Unknown Venipuncture / Unknown 02/13/2025 6:28 AM EST 02/13/2025 6:37 AM EST Werner Grullon MD LAB BLOOD ORDERABLES Final Re sult Performing Organization Address City/[facility] [address]/[facility] [place] [address] * (ABNORMAL) Iron & Total Iron Binding Capacity, Plasma (Includes Transferrin) (02/13/2025 6:28 AM EST) Iron, Plasma 22(L) 30 - 160 ug/dL 02/13/2025 7:11 AM EST [facility] Transferrin, Plasma 156(L) 200 - 360 mg/dL 02/13/2025 7:11 AM EST [facility] Total Iron Binding Capacity, Plasma 195(L) 240 - 450 ug/mL 02/13/2025 7:11 AM EST [facility] Transferrin Saturation 11(L) 14 - 50 % 02/13/2025 7:11 AM EST [facility] Blood Venous blood specimen / Unknown Venipuncture / Unknown 02/13/2025 6:28 AM EST 02/13/2025 6:38 AM EST us Werner Grullon MD LAB BLOOD ORDERABLES Final Re sult Performing Organization Address City/[facility] [address]/ZIP Co de Phone Number [facility] [address] [place] [address] * (ABNORMAL) Ferritin, Serum (02/13/2025 6:28 AM EST) Ferritin, Serum 196(H) 13 - 150 ng/mL 02/13/2025 7:15 AM EST [facility] Blood Venous blood specimen / Unknown Venipuncture / Unknown 02/13/2025 6:28 AM EST 02/13/2025 6:38 AM EST us Werner Grullon MD LAB BLOOD ORDERABLES Final Re sult [facility] [address] [place] [address] * Phosphorus (02/13/2025 6:28 AM EST) Phosphorus, Plasma 3.0 2.5 - 4.5 mg/dL 02/13/2025 7:11 AM EST [facility] Blood Venous blood specimen / Unknown Venipuncture / Unknown 02/13/2025 6:28 AM EST 02/13/2025 6:38 AM EST us Werner Grullon MD LAB BLOOD ORDERABLES Final Re sult [facility] [address] [place] [address] * (ABNORMAL) Magnesium (02/13/2025 6:28 AM EST) Pathologist [facility] Magnesium, Plasma 1.7(L) 1.9 - 2.4 mg/dL 02/13/2025 7:11 AM EST [facility] Blood Venous blood specimen / Unknown Venipuncture / Unknown 02/13/2025 6:28 AM EST 02/13/2025 6:38 AM EST us Werner Grullon MD LAB BLOOD ORDERABLES Final Re sult Performing Organization Address City/[facility] [address]/ZIP Co de Phone Number [facility] [address] [place] [address] * (ABNORMAL) Comprehensive metabolic panel (02/13/2025 6:28 AM EST) Pathologist [facility] Glucose, Plasma 89 74 - 99 mg/dL 02/13/2025 7:11 AM EST [facility] BUN, Plasma 8 7 - 21 mg/dL 02/13/2025 7:11 AM EST [facility] Creatinine, Plasma 0.67 0.60 - 1.10 mg/dL 02/13/2025 7:11 AM EST [facility] BUN/Creatinine Ratio 12 02/13/2025 7:11 AM EST [facility] Sodium, Plasma 141 136 - 145 mmol/L 02/13/2025 7:11 AM EST [facility] Potassium, Plasma 4.4 3.6 - 4.9 mmol/L 02/13/2025 7:11 AM EST [facility] Chloride, Plasma 107 97 - 107 mmol/L 02/13/2025 7:11 AM EST [facility] CO2, Plasma 27 22 - 29 mmol/L 02/13/2025 7:11 AM EST [facility] Anion Gap 7 6 - 16 mmol/L 02/13/2025 7:11 AM EST [facility] Total Calcium, Plasma 8.7(L) 8.9 - 10.2 mg/dL 02/13/2025 7:11 AM EST [facility] Total Protein 6.4 6.3 - 7.9 g/dL 02/13/2025 7:11 AM EST [facility] Albumin, Plasma 3.2(L) 3.5 - 5.2 g/dL 02/13/2025 7:11 AM EST [facility] AST, Plasma 21 10 - 35 U/L 02/13/2025 7:11 AM EST [facility] ALT, Plasma 13 10 - 35 U/L 02/13/2025 7:11 AM EST [facility] Alkaline Phosphatase, Plasma 116(H) 35 - 104 U/L 02/13/2025 7:11 AM EST [facility] Total Bilirubin, Plasma 0.2 0.2 - 1.1 mg/dL 02/13/2025 7:11 AM EST [facility] eGFRcr 109.3 mL/min/1.7 3m*2 02/13/2025 7:11 AM EST [facility] Comment:Reported eGFRcr in m L/min/1.73m2 is based the CKD-EPI 2020 equation that does not use a race coefficient. Blood Venous blood specimen / Unknown Venipuncture / Unknown 02/13/2025 6:28 AM EST 02/13/2025 6:38 AM EST us Werner Grullon MD LAB BLOOD ORDERABLES Final Re sult [facility] [address] [place] [address] * (ABNORMAL) CBC and Differential (02/13/2025 6:28 AM EST) WBC Count 6.21 3.70 - 10.30 10*3/uL LAB HEMATOLOGY METHOD 02/13/2025 6:37 AM EST [facility] RBC Count 3.79(L) 3.90 - 5.20 10*6/uL LAB HEMATOLOGY METHOD 02/13/2025 6:37 AM EST [facility] HGB 10.5(L) 11.2 - 15.7 g/dL LAB HEMATOLOGY METHOD 02/13/2025 6:37 AM EST [facility] HCT 33.0(L) 34.0 - 45.0 % LAB HEMATOLOGY METHOD 02/13/2025 6:37 AM EST [facility] Platelet Count 273 155 - 369 10*3/uL LAB HEMATOLOGY METHOD 02/13/2025 6:37 AM EST [facility] MCV 87 79 - 98 fL LAB HEMATOLOGY METHOD 02/13/2025 6:37 AM [facility] MCH 27.7 26.0 - 32.0 pg LAB HEMATOLOGY METHOD 02/13/2025 6:37 AM EST [facility] MCHC 31.8 30.7 - 35.5 g/dL LAB HEMATOLOGY METHOD 02/13/2025 6:37 AM EST [facility] RDW 15.1(H) 11.5 - 14.5 % LAB HEMATOLOGY METHOD 02/13/2025 6:37 AM [facility] MPV 8.8 8.8 - 12.5 fL LAB HEMATOLOGY METHOD 02/13/2025 6:37 AM EST [facility] nRBC 0.0 <=0.0 per 100 WBCs LAB HEMATOLOGY METHOD 02/13/2025 6:37 AM [facility] Differential Type Automated LAB HEMATOLOGY METHOD 02/13/2025 6:37 AM [facility] Neutrophils % 56 % LAB HEMATOLOGY METHOD 02/13/2025 6:37 AM [facility] Lymphocytes % 28 % LAB HEMATOLOGY METHOD 02/13/2025 6:37 AM [facility] Monocytes % 9 % LAB HEMATOLOGY METHOD 02/13/2025 6:37 AM [facility] Eosinophils % 6 % LAB HEMATOLOGY METHOD 02/13/2025 6:37 AM EST [facility] Basophils % 1 % LAB HEMATOLOGY METHOD 02/13/2025 6:37 AM [facility] Immature Granulocytes % 0 % LAB HEMATOLOGY METHOD 02/13/2025 6:37 AM [facility] Neutrophils Absolute 3.50 1.60 - 6.10 10*3/uL LAB HEMATOLOGY METHOD 02/13/2025 6:37 AM EST [facility] Lymphocytes Absolute 1.75 1.20 - 3.90 10*3/uL LAB HEMATOLOGY METHOD 02/13/2025 6:37 AM EST [facility] Monocytes Absolute 0.55 0.30 - 0.90 10*3/uL LAB HEMATOLOGY METHOD 02/13/2025 6:37 AM EST [facility] Eosinophils Absolute 0.36 0.00 - 0.50 10*3/uL LAB HEMATOLOGY METHOD 02/13/2025 6:37 AM EST [facility] Basophils Absolute 0.03 0.00 - 0.10 10*3/uL LAB HEMATOLOGY METHOD 02/13/2025 6:37 AM EST [facility] Immature Granulocytes Absolute 0.02 0.00 - 0.06 10*3/uL LAB HEMATOLOGY METHOD 02/13/2025 6:37 AM EST [facility] Blood Venous blood specimen / Unknown Venipuncture / Unknown 02/13/2025 6:28 AM EST 02/13/2025 6:34 AM EST Narrative [facility] - 02/13/2025 6:37 AM EST Therapeutic decision making should be based on absolute values, rather than percentages. us Werner Grullon MD LAB BLOOD ORDERABLES Final Re sult [facility] [address] [place] [address] * ECG Adult (02/13/2025 1:40 AM EST) EKG DIAGNOSIS CLASS Abnormal MUSE ECG Ventricular Rate 88 BPM MUSE ECG Atrial Rate 88 BPM MUSE ECG HI Interval 134 ms MUSE ECG QRSD Interval 78 ms MUSE ECG QT Interval 358 ms MUSE ECG QTC Interval 433 ms MUSE ECG P [place] 86 degrees MUSE ECG R [place] 34 degrees MUSE ECG T Wave [place] 69 degrees MUSE ECG Diagnosis Normal sinus rhythm MUSE ECG Diagnosis Low voltage QRS MUSE ECG Diagnosis Septal infarct , age undetermined MUSE ECG Diagnosis Abnormal ECG MUSE ECG Diagnosis MUSE ECG Diagnosis Confirmed by Yehuda Schofield ([id number]) on 02/13/2025 5:51:32 PM MUSE ECG 02/13/2025 1:40 AM EST 02/13/2025 5:51 PM EST us Werner Grullon MD ECG ORDERABLES Final Result MUSE ECG * Blood Culture (Aerobic/Anaerobet Set) (02/12/2025 9:07 PM EST) Culture No growth at day 5 02/17/2025 10:01 PM EST [facility] Blood Venous blood specimen / Unknown Venipuncture / Unknown 02/12/2025 9:07 PM EST 02/12/2025 9:52 PM EST us Jamir Chiu MD LAB MICROBIOLOGY - GENERAL ORD ERABLES Final Result Performing Organization Address City/[facility] [address]/ZIP Co de Phone Number [facility] [address] [place] [address] * Urine Jin Panel (02/12/2025 8:27 PM EST) Extra Reflex urine culture not indicated 02/13/2025 5:02 AM EST [facility] Comment: Previously prelim verified as Specimen evaluation in progress on 02/12/2025 at 2202 EST. Previously prelim verified as Specimen evaluation in progress on 02/12/2025 at 2302 EST. Previously prelim verified as Specimen evaluation in progress on 02/13/2025 at 0002 EST. Previously prelim verified as Specimen evaluation in progress on 02/13/2025 at 0104 EST. Previously prelim verified as Specimen evaluation in progress on 02/13/2025 at 0202 EST. Previously prelim verified as Specimen evaluation in progress on 02/13/2025 at 0302 EST. Previously prelim verified as Specimen evaluation in progress on 02/13/2025 at 0402 EST. Urine Urine specimen obtained by clean catch procedure / Unknown Non-blood Collection / Unknown 02/12/2025 8:27 PM EST 02/12/2025 8:37 PM EST us Jamir Chiu MD LAB URINE ORDERABLES Final Res ult Performing Organization Address City/[facility] [address]/ZIP Co de Phone Number [facility] [address] [place] [address] * Urinalysis with reflex microscopic (Culture NOT Included) (02/12/2025 8:27 PM EST) Color, Urine Yellow LAB URINALYSIS - AUTOMATED METHOD 02/12/2025 8:51 PM EST [facility] Clarity, Urine Clear LAB URINALYSIS - AUTOMATED METHOD 02/12/2025 8:51 PM EST [facility] Spec [place], Urine 1.006 1.005 - 1.030 LAB URINALYSIS - AUTOMATED METHOD 02/12/2025 8:51 PM EST [facility] pH, Urine 6.5 5.0 - 8.0 LAB URINALYSIS - AUTOMATED METHOD 02/12/2025 8:51 PM EST [facility] Protein, Urine Negative Negative mg/dL LAB URINALYSIS - AUTOMATED METHOD 02/12/2025 8:51 PM EST [facility] Glucose, Urine Negative Negative mg/dL LAB URINALYSIS - AUTOMATED METHOD 02/12/2025 8:51 PM EST [facility] Ketones, Urine Negative Negative mg/dL LAB URINALYSIS - AUTOMATED METHOD 02/12/2025 8:51 PM EST [facility] Blood, Urine Negative Negative LAB URINALYSIS - AUTOMATED METHOD 02/12/2025 8:51 PM EST [facility] Bilirubin, Urine Negative Negative LAB URINALYSIS - AUTOMATED METHOD 02/12/2025 8:51 PM EST [facility] Urobilinogen, Urine 0.2 0.2 to 1.0 mg/dL LAB URINALYSIS - AUTOMATED METHOD 02/12/2025 8:51 PM EST [facility] Leukocytes, Urine Negative Negative LAB URINALYSIS - AUTOMATED METHOD 02/12/2025 8:51 PM [facility] Nitrite, Urine Negative Negative LAB URINALYSIS - AUTOMATED METHOD 02/12/2025 8:51 PM EST [facility] Urine Urine specimen obtained by clean catch procedure / Unknown Non-blood Collection / Unknown 02/12/2025 8:27 PM EST 02/12/2025 8:30 PM EST us Jamir Chiu MD LAB URINE ORDERABLES Final Res ult [facility] [address] [place] [address] * Procalcitonin (02/12/2025 7:30 PM EST) Procalcitonin, Plasma 0.06 <0.09 ng/mL 02/13/2025 2:28 AM EST [facility] Blood Venous blood specimen / Unknown Venipuncture / Unknown 02/12/2025 7:30 PM EST 02/12/2025 7:41 PM EST Narrative [facility] - 02/13/2025 2:28 AM EST Procalcitonin concentrations in healthy individuals are <0.09 ng/mL. Published data support the following interpretive risk assessment: An elevated procalcitonin result does not always indicate sepsis. Various non-infectious conditions are known to increase procalcitonin. Results should be considered in the context of clinical symptoms and other laboratory tests. Procalcitonin >2.0 ng/mL: Concentrations >2.0 ng/mL on the first day of ICU admission are associated with a higher risk of progression to severe sepsis and/or septic shock. The change in PCT over time may help predict 28 day mortality risk. Please consult [email or web address] for more information. Test performed at [facility]. us Werner Grullon MD LAB BLOOD ORDERABLES Final Re sult Performing Organization Address City/[facility] [address]/ZIP Co de Phone Number [facility] [address] [place] [address] * (ABNORMAL) C-Reactive Protein, Plasma (02/12/2025 7:30 PM EST) [facility] CRP, Plasma 127.4(H) <=8.0 mg/L 02/13/2025 2:28 AM EST [facility] Blood Venous blood specimen / Unknown Venipuncture / Unknown 02/12/2025 7:30 PM EST 02/12/2025 7:41 PM EST Narrative [facility] - 02/13/2025 2:28 AM EST This CRP test is appropriate for assessment of infection, systemic inflammation and/or tissue injury. To assess cardiovascular disease risk order high sensitivity CRP (CRPH). us Werner Grullon MD LAB BLOOD ORDERABLES Final Re sult Performing Organization Address City/[facility] [address]/ZIP Co de Phone Number [facility] [address] [place] [address] * ED HIV 1/2 Antibody/Antigen Screen w/Reflex to HIV 1/2 Differentiation (02/12/2025 7:30 PM EST) Pathologist [facility] HIV 1 & 2 Antibody/Antigen Screen Non Reactive Non Reactive 02/12/2025 8:31 PM EST [facility] Comment:Screening for HIV 1 & 2 antibodies, and P24 antigen is NONREACTIVE. No confirmatory testing is required. Blood Venous blood specimen / Unknown Venipuncture / Unknown 02/12/2025 7:30 PM EST 02/12/2025 7:41 PM EST us Jamir Chiu MD LAB BLOOD ORDERABLES Final Res ult Performing Organization Address City/[facility] [address]/ZIP Co de Phone Number [facility] [address] [place] [address] * Hepatitis C Antibody - ED (02/12/2025 7:30 PM EST) Pathologist [facility] Hepatitis C Antibody Negative Negative 02/12/2025 8:31 PM EST [facility] Blood Venous blood specimen / Unknown Venipuncture / Unknown 02/12/2025 7:30 PM EST 02/12/2025 7:41 PM EST us Jamir Chiu MD LAB BLOOD ORDERABLES Final Res ult Performing Organization Address City/[facility] [address]/ZIP Co de Phone Number [facility] [address] [place] [address] * (ABNORMAL) Lipase (02/12/2025 7:30 PM EST) [facility] Lipase, Plasma 14(L) 19 - 63 U/L 02/12/2025 8:05 PM EST [facility] Blood Venous blood specimen / Unknown Venipuncture / Unknown 02/12/2025 7:30 PM EST 02/12/2025 7:41 PM EST us Jamir Chiu MD LAB BLOOD ORDERABLES Final Res ult Performing Organization Address City/[facility] [address]/ZIP Co de Phone Number [facility] [address] [place] [address] * Lactic acid, venous (02/12/2025 7:30 PM EST) Lactate, Venous, Whole Blood 0.5 0.5 - 2.2 mmol/L LAB HEMATOLOGY METHOD 02/12/2025 7:42 PM EST [facility] Blood Venous blood specimen / Unknown Venipuncture / Unknown 02/12/2025 7:30 PM EST 02/12/2025 7:40 PM EST Jamir Chiu MD LAB BLOOD ORDERABLES Final Res ult [facility] [address] [place] [address] * (ABNORMAL) Magnesium (02/12/2025 7:30 PM EST) Magnesium, Plasma 1.7(L) 1.9 - 2.4 mg/dL 02/12/2025 8:05 PM EST [facility] Blood Venous blood specimen / Unknown Venipuncture / Unknown 02/12/2025 7:30 PM EST 02/12/2025 7:41 PM EST us Jamir Chiu MD LAB BLOOD ORDERABLES Final Res ult [facility] [address] [place] [address] * (ABNORMAL) CMP (02/12/2025 7:30 PM EST) Glucose, Plasma 80 74 - 99 mg/dL 02/12/2025 8:05 PM EST [facility] BUN, Plasma 6(L) 7 - 21 mg/dL 02/12/2025 8:05 PM EST [facility] Creatinine, Plasma 0.63 0.60 - 1.10 mg/dL 02/12/2025 8:05 PM EST [facility] BUN/Creatinine Ratio 10 02/12/2025 8:05 PM EST [facility] Sodium, Plasma 142 136 - 145 mmol/L 02/12/2025 8:05 PM EST [facility] Potassium, Plasma 3.8 3.6 - 4.9 mmol/L 02/12/2025 8:05 PM EST [facility] Chloride, Plasma 108(H) 97 - 107 mmol/L 02/12/2025 8:05 PM EST [facility] CO2, Plasma 24 22 - 29 mmol/L 02/12/2025 8:05 PM EST [facility] Anion Gap 10 6 - 16 mmol/L 02/12/2025 8:05 PM EST [facility] Total Calcium, Plasma 8.3(L) 8.9 - 10.2 mg/dL 02/12/2025 8:05 PM EST [facility] Total Protein 5.8(L) 6.3 - 7.9 g/dL 02/12/2025 8:05 PM [facility] Albumin, Plasma 2.8(L) 3.5 - 5.2 g/dL 02/12/2025 8:05 PM EST [facility] AST, Plasma 19 10 - 35 U/L 02/12/2025 8:05 PM EST [facility] ALT, Plasma 10 10 - 35 U/L 02/12/2025 8:05 PM EST [facility] Alkaline Phosphatase, Plasma 110(H) 35 - 104 U/L 02/12/2025 8:05 PM EST [facility] Total Bilirubin, Plasma <0.2(L) 0.2 - 1.1 mg/dL 02/12/2025 8:05 PM EST [facility] eGFRcr 111.0 mL/min/1.7 3m*2 02/12/2025 8:05 PM EST [facility] Comment:Reported eGFRcr in m L/min/1.73m2 is based the CKD-EPI 2020 equation that does not use a race coefficient. Blood Venous blood specimen / Unknown Venipuncture / Unknown 02/12/2025 7:30 PM EST 02/12/2025 7:41 PM EST us Jamir Chiu MD LAB BLOOD ORDERABLES Final Res ult [facility] [address] [place] [address] * (ABNORMAL) CBC w/diff (02/12/2025 7:30 PM EST) WBC Count 7.70 3.70 - 10.30 10*3/uL LAB HEMATOLOGY METHOD 02/12/2025 7:47 PM EST [facility] RBC Count 3.42(L) 3.90 - 5.20 10*6/uL LAB HEMATOLOGY METHOD 02/12/2025 7:47 PM EST [facility] HGB 9.5(L) 11.2 - 15.7 g/dL LAB HEMATOLOGY METHOD 02/12/2025 7:47 PM EST [facility] HCT 30.3(L) 34.0 - 45.0 % LAB HEMATOLOGY METHOD 02/12/2025 7:47 PM EST [facility] Platelet Count 270 155 - 369 10*3/uL LAB HEMATOLOGY METHOD 02/12/2025 7:47 PM EST [facility] MCV 89 79 - 98 fL LAB HEMATOLOGY METHOD 02/12/2025 7:47 PM EST [facility] MCH 27.8 26.0 - 32.0 pg LAB HEMATOLOGY METHOD 02/12/2025 7:47 PM EST [facility] MCHC 31.4 30.7 - 35.5 g/dL LAB HEMATOLOGY METHOD 02/12/2025 7:47 PM EST [facility] RDW 15.2(H) 11.5 - 14.5 % LAB HEMATOLOGY METHOD 02/12/2025 7:47 PM EST [facility] MPV 9.0 8.8 - 12.5 fL LAB HEMATOLOGY METHOD 02/12/2025 7:47 PM EST [facility] nRBC 0.0 <=0.0 per 100 WBCs LAB HEMATOLOGY METHOD 02/12/2025 7:47 PM EST [facility] Differential Type Automated LAB HEMATOLOGY METHOD 02/12/2025 7:47 PM EST [facility] Neutrophils % 53 % LAB HEMATOLOGY METHOD 02/12/2025 7:47 PM EST [facility] Lymphocytes % 31 % LAB HEMATOLOGY METHOD 02/12/2025 7:47 PM EST [facility] Monocytes % 11 % LAB HEMATOLOGY METHOD 02/12/2025 7:47 PM EST [facility] Eosinophils % 5 % LAB HEMATOLOGY METHOD 02/12/2025 7:47 PM EST [facility] Basophils % 0 % LAB HEMATOLOGY METHOD 02/12/2025 7:47 PM EST [facility] Immature Granulocytes % 0 % LAB HEMATOLOGY METHOD 02/12/2025 7:47 PM EST [facility] Neutrophils Absolute 4.09 1.60 - 6.10 10*3/uL LAB HEMATOLOGY METHOD 02/12/2025 7:47 PM EST [facility] Lymphocytes Absolute 2.37 1.20 - 3.90 10*3/uL LAB HEMATOLOGY METHOD 02/12/2025 7:47 PM EST [facility] Monocytes Absolute 0.84 0.30 - 0.90 10*3/uL LAB HEMATOLOGY METHOD 02/12/2025 7:47 PM EST [facility] Eosinophils Absolute 0.35 0.00 - 0.50 10*3/uL LAB HEMATOLOGY METHOD 02/12/2025 7:47 PM EST [facility] Basophils Absolute 0.03 0.00 - 0.10 10*3/uL LAB HEMATOLOGY METHOD 02/12/2025 7:47 PM EST [facility] Immature Granulocytes Absolute 0.02 0.00 - 0.06 10*3/uL LAB HEMATOLOGY METHOD 02/12/2025 7:47 PM EST [facility] Blood Venous blood specimen / Unknown Venipuncture / Unknown 02/12/2025 7:30 PM EST 02/12/2025 7:41 PM EST Narrative [facility] - 02/12/2025 7:47 PM EST Therapeutic decision making should be based on absolute values, rather than percentages. us Jamir Chiu MD LAB BLOOD ORDERABLES Final Res ult [facility] [address] [place] [address] documented in this encounter Visit Diagnoses Diagnosis Hypotension due to hypovolemia- Primary Lymph node enlargement Enlargement of lymph nodes Hypotension, unspecified hypotension type Generalized abdominal pain Abdominal pain, generalized Nausea and vomiting, unspecified vomiting type Recurrent thyroid cancer (CMS/HCC) Colon cancer (CMS/HCC) Malignant neoplasm of colon, unspecified site Hypotension Unspecified hypotension Lymph node enlargement Enlargement of lymph nodes documented in this encounter Admitting Diagnoses Diagnosis Hypotension Unspecified hypotension documented in this encounter Administered Medications Inactive Administered Medications - up to 3 most recent administrations Medication Order MAR Action Action Date Dose Rate Site acetaminophen (Tylenol) tablet 650 mg 650 mg, Oral, Every 8 hours PRN, Starting on 02/13/25 at 0126, Until Fri02/14/25 at 1625, Routine, Mild Plus Pain with CPOT DVPRS FLACC PAINAD NPASS NRS Saba-Evans Faces score of 1 or greater OR NIPS score 2 or greater Given 02/14/2025 7:53 AM EST 650 mg Given 02/13/2025 12:27 PM EST 650 mg calcium carbonate (Tums) chewable tablet 500 mg 500 mg, Oral, Once, 1 dose, On 02/13/25 at 2230, Routine Given 02/13/2025 9:38 PM EST 500 mg cyclobenzaprine (Flexeril) tablet 5 mg 5 mg, Oral, 3 times daily PRN, Starting on 02/13/25 at 0122, Until Fri02/14/25 at 1625, muscle spasms Given 02/14/2025 7:53 AM EST 5 mg Given 02/13/2025 3:53 PM EST 5 mg enoxaparin (Lovenox) syringe 40 mg 40 mg, Subcutaneous, Daily, First dose on 02/13/25 at 0900, Until Discontinued, Routine Given 02/13/2025 8:17 AM EST 40 mg Left Lower Abdomen heparin flush (porcine) 100 UNIT/ML injection 500 Units 500 Units, Intracatheter, Once, 1 dose, On Fri02/14/25 at 1330, Routine Given 02/14/2025 12:47 PM EST 500 Units iohexol (OMNIPaque) 9 MG/ML oral contrast 500 mL 500 mL, Oral, Once in imaging, 1 dose, Starting on 02/13/25 at 1025, Until 02/13/25 at 1216, Routine, Imaging Protocol Orders Given 02/13/2025 12:16 PM EST 500 mL iohexol (OMNIPaque) 9 MG/ML oral contrast 500 mL 500 mL, Oral, Once in imaging, 1 dose, Starting on Fri02/14/25 at 0821, Until Fri02/14/25 at 1625, Routine, Imaging Protocol Orders ketorolac (Toradol) injection 15 mg 15 mg, Intravenous, Once, 1 dose, On 02/12/25 at 1930, STAT Given 02/12/2025 7:37 PM EST 15 mg levothyroxine (Synthroid, Levoxyl) tablet 125 mcg 125 mcg, Oral, Daily, First dose on 02/13/25 at 0900, Until Discontinued, Routine Given 02/14/2025 8:00 AM EST 125 mcg Given 02/13/2025 8:50 AM EST 125 mcg magnesium sulfate IVPB 4 g 4 g, Intravenous, Once, 1 dose, On 02/13/25 at 0800, Routine New Bag 02/13/2025 8:17 AM EST 4 g 25 mL/hr mupirocin (Bactroban) 2 % ointment 1 Application Each Nostril, 2 times daily, 10 doses, First dose on Fri02/14/25 at 0945, Last dose on Fri02/18/25 at 2100, Routine Given 02/14/2025 9:52 AM EST 1 Application ondansetron (Zofran) injection 4 mg 4 mg, Intravenous, Every 6 hours PRN, Starting on 02/13/25 at 0203, Until Fri02/14/25 at 1625, Routine, nausea, vomiting Given 02/14/2025 7:49 AM EST 4 mg Given 02/14/2025 1:03 AM EST 4 mg Given 02/13/2025 6:11 PM EST 4 mg oxyCODONE (Roxicodone) immediate release tablet 5 mg 5 mg, Oral, Once, 1 dose, On 02/12/25 at 2020, STAT Given 02/12/2025 8:24 PM EST 5 mg oxyCODONE (Roxicodone) immediate release tablet 5 mg 5 mg, Oral, Every 4 hours PRN, Starting on 02/13/25 at 0126, Until Fri02/14/25 at 1625, Routine, Moderate Severe Pain with CPOT score of 3 or greater OR FLACC PAINAD NPASS NRS Saba-Evans Faces score of 4 or greater OR DVPRS NIPS score of 5 or greater Given 02/14/2025 1:49 PM EST 5 mg Given 02/14/2025 9:52 AM EST 5 mg Given 02/14/2025 4:51 AM EST 5 mg sodium chloride 0.9 % flush 10 mL 10 mL, Intravenous, Every 12 hours, First dose on 02/13/25 at 0130, Until Discontinued, Routine Given 02/14/2025 7:54 AM EST 10 mL Given 02/14/2025 1:03 AM EST 10 mL Given 02/13/2025 2:04 PM EST 10 mL sodium chloride 0.9 % flush 10 mL 10 mL, Intravenous, As needed, Starting on 02/13/25 at 0124, Until Fri02/14/25 at 1625, Routine, line care tenofovir disoproxil fumarate (Viread) tablet 300 mg 300 mg, Oral, Daily, First dose on Fri02/14/25 at 0900, Until Discontinued, Routine Given 02/14/2025 8:00 AM EST 300 mg Umeclidinium-Vilanterol (Anoro) 62.5-25 MCG/ACT aerosol powder 1 Inhalation 1 Inhalation, Inhalation, Daily, First dose on 02/13/25 at 0900, Until Discontinued, Routine Given 02/14/2025 8:00 AM EST 1 Inhalation Given 02/13/2025 9:32 AM EST 1 Inhalation documented in this encounter Active and Recently Administered Medications Times are shown in EST. Scheduled Medication Order 02/12/2025 02/13/2025 02/14/2025 calcium carbonate (Tums) chewable tablet 500 mg (COMPLETED) 500 mg, Oral, Once, 1 dose, On 02/13/25 at 2230, Routine 2138 (Given - Provider: Sapphire Carlson LPN) enoxaparin (Lovenox) syringe 40 mg 40 mg, Subcutaneous, Daily, First dose on 02/13/25 at 0900, Until Discontinued, Routine 0817 (Given - Provider: Dennise Hernandez RN) 0754 (Not Given - Provider: Caterina Gregg RN - Reason: Patient/Family/Repres entative Refused) heparin flush (porcine) 100 UNIT/ML injection 500 Units (COMPLETED) 500 Units, Intracatheter, Once, 1 dose, On Fri02/14/25 at 1330, Routine 1247 (Given - Provider: Caterina Gregg RN) heparin flush (porcine) 100 UNIT/ML injection 500 Units 500 Units, Intracatheter, Once, 1 dose, On Fri02/14/25 at 1330, Routine 1245 (Canceled Entry - Provider: Caterina Gregg RN - Comment: duplicate order) iohexol (OMNIPaque) 9 MG/ML oral contrast 500 mL (COMPLETED) 500 mL, Oral, Once in imaging, 1 dose, Starting on 02/13/25 at 1025, Until 02/13/25 at 1216, Routine, Imaging Protocol Orders 1216 (Given - Provider: Amanda Munguia) iohexol (OMNIPaque) 9 MG/ML oral contrast 500 mL 500 mL, Oral, Once in imaging, 1 dose, Starting on Fri02/14/25 at 0821, Until Fri02/14/25 at 1625, Routine, Imaging Protocol Orders ketorolac (Toradol) injection 15 mg (COMPLETED) 15 mg, Intravenous, Once, 1 dose, On 02/12/25 at 1930, STAT 1937 (Given - Provider: Dimas Brian RN) levothyroxine (Synthroid, Levoxyl) tablet 125 mcg 125 mcg, Oral, Daily, First dose on 02/13/25 at 0900, Until Discontinued, Routine 0850 (Given - Provider: Dennise Hernandez RN) 0800 (Given - Provider: Caterina Gregg RN) magnesium sulfate IVPB 4 g (COMPLETED) 4 g, Intravenous, Once, 1 dose, On 02/13/25 at 0800, Routine 0817 (New Bag - Provider: Dennise Hernandez RN)1246 (Stopped - Provider: Dennise Hernandez RN) mupirocin (Bactroban) 2 % ointment 1 Application Each Nostril, 2 times daily, 10 doses, First dose on Fri02/14/25 at 0945, Last dose on Fri02/18/25 at 2100, Routine 0952 (Given - Provider: Caterina Gregg, RN) oxyCODONE (Roxicodone) immediate release tablet 5 mg (COMPLETED) 5 mg, Oral, Once, 1 dose, On 02/12/25 at 2020, STAT 202 (Given - Provider: Alessio Brian RN) sodium chloride 0.9 % flush 10 mL(Linked Group 1) 10 mL, Intravenous, Every 12 hours, First dose on 02/13/25 at 0130, Until Discontinued, Routine 0929 (Given - Provider: Dennise Hernandez RN)1404 (Given - Provider: Dennise Hernandez RN) 0103 (Given - Provider: Sapphire L Carlson, CAN STERILIZER)0754 (Given - Provider: Caterina Gregg, RN) tenofovir disoproxil fumarate (Viread) tablet 300 mg 300 mg, Oral, Daily, First dose on Fri02/14/25 at 0900, Until Discontinued, Routine 0800 (Given - Provider: Caterina Gregg, RN) Umeclidinium-Vilantero l (Anoro) 62.5-25 MCG/ACT aerosol powder 1 Inhalation 1 Inhalation, Inhalation, Daily, First dose on 02/13/25 at 0900, Until Discontinued, Routine 0932 (Given - Provider: Dennise Hernandez RN) 0800 (Given - Provider: Caterina Gregg, RN) PRN Medication Order 02/12/2025 02/13/2025 02/14/2025 acetaminophen (Tylenol) tablet 650 mg 650 mg, Oral, Every 8 hours PRN, Starting on 02/13/25 at 0126, Until Fri02/14/25 at 1625, Routine, Mild Plus Pain with CPOT DVPRS FLACC PAINAD NPASS NRS Saba-Evans Faces score of 1 or greater OR NIPS score 2 or greater 1227 (Given - Provider: Dennise Hernandez RN)1628 (Not Given - Provider: Caterina Gregg, RN - Reason: Order parameters not met) 0753 (Given - Provider: Caterina Gregg, RN) albuterol 108 (90 Base) MCG/ACT inhaler 2 puff 2 puff, Inhalation, Every 4 hours PRN, Starting on 02/13/25 at 0122, Until Fri02/14/25 at 1625, Routine, shortness of breath, wheezing cyclobenzaprine (Flexeril) tablet 5 mg 5 mg, Oral, 3 times daily PRN, Starting on 02/13/25 at 0122, Until Fri02/14/25 at 1625, muscle spasms 1553 (Given - Provider: Caterina Gregg, RN) 0753 (Given - Provider: Caterina Gregg, RN) HYDROmorphone (Dilaudid) injection 0.5 mg 0.5 mg, Intravenous, Every 4 hours PRN, Starting on 02/13/25 at 0126, Until Fri02/14/25 at 1625, Routine, Moderate Severe Pain with CPOT score of 3 or greater OR FLACC PAINAD NPASS NRS Saba-Evans Faces score of 4 or greater OR DVPRS NIPS score of 5 or greater ondansetron (Zofran) injection 4 mg 4 mg, Intravenous, Every 6 hours PRN, Starting on Fri02/13/25 at 0203, Until Fri02/14/25 at 1625, Routine, nausea, vomiting 1811 (Given - Provider: Caterina Gregg RN) 0103 (Given - Provider: Sapphire Carlson LPN)0749 (Given - Provider: Caterina Gregg RN)1347 (Canceled Entry - Provider: Caterina Gregg RN) oxyCODONE (Roxicodone) immediate release tablet 5 mg 5 mg, Oral, Every 4 hours PRN, Starting on 02/13/25 at 0126, Until Fri02/14/25 at 1625, Routine, Moderate Severe Pain with CPOT score of 3 or greater OR FLACC PAINAD NPASS NRS Saba-Evans Faces score of 4 or greater OR DVPRS NIPS score of 5 or greater 0613 (Given - Provider: Marielle Evans RN)1227 (Given - Provider: Dennise Hernandez RN)1628 (Given - Provider: Caterina Gregg RN)2032 (Given - Provider: Sapphire Carlson LPN) 0451 (Given - Provider: Sapphire Carlson LPN)0749 (Not Given - Provider: Caterina Gregg RN - Reason: Order parameters not met)0952 (Given - Provider: Caterina Gregg RN)1349 (Given - Provider: Caterina Gregg RN) sodium chloride 0.9 % flush 10 mL(Linked Group 1) 10 mL, Intravenous, As needed, Starting on Fri02/13/25 at 0124, Until Fri02/14/25 at 1625, Routine, line care Linked Groups Order Group 1: Insert peripheral IV (COMPLETED) Once, On Fri02/13/25 at 0125, For 1 occurrence And Saline lock IV (COMPLETED) Once, On Fri02/13/25 at 0125, For 1 occurrence And sodium chloride 0.9 % flush 10 mLJump to med 10 mL, Intravenous, Every 12 hours, First dose on 02/13/25 at 0130, Until Discontinued, Routine And sodium chloride 0.9 % flush 10 mLJump to med 10 mL, Intravenous, As needed, Starting on 11/16/25 at 0124, Until 02/14/25 at 1625, Routine, line care documented in this encounter Additional Health Concerns Assessment Noted Time PHQ-9 Depression Total Score: 0 06/22/19 1:53 PM EDT A fall risk assessment has been complete d for the patient 12/29/2024 1:10 PM EDT A Body Mass Index follow-up plan has been documented for the patient 02/14/2025 12:44 PM EST documented as of this encounter 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
--- OUTSIDE RECORDS SUMMARY | 2025-02-17 08:00 | XMS_ITS | Encounter Summary ---
Author Organization [facility] Address [address] [place] [address] Care Team Providers Care Refining Machine Operator Name Role Phone Sergey Oh MD Primary Care Provider [phone] Jean Mak MD Unavailable [phone] Alice Chou RN Unavailable Unavailable Reason for Visit * Reason Comments Follow-up History of colon can cer, stage II Encounter Details Date Type Department Care Team (Latest Contact Info) Description 02/17/2025 8:00 AM EST Office Visit [facility] Multidisciplinary Oncology Clinic [address] [place] [phone] Edison Skaggs MD [address] [place] [id number] Colorectal cancer (CMS/HCC) (Primary Dx); Overlapping malignant neoplasm of colon (CMS/HCC) Social History Tobacco Use Types Packs/Day Years Used Date Smoking Tobacco: Former Cigarettes 1 32.6 S tarted: 03/31/1994 Passive Smoke Exposure: Current Smokeless Tobacco: [...] drink 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) to 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 your nerves or to get [...] Sign Reading Time Taken Comments Blood Pressure 105/74 02/17/2025 9:18 AM EST Pulse 102 02/17/2025 9:18 AM EST Temperature 36.7 C (98 F) 02/17/2025 9:18 AM EST Respiratory Rate 16 02/17/2025 9:18 AM EST Oxygen Saturation 98% 02/17/2025 9:18 AM EST Inhaled Oxygen Concentration - - Weight 66.3 kg (146 lb 2.6 oz) 02/17/2025 9:18 A M EST Height 157.5 cm (5' 2.01 ) 02/17/2025 9:18 AM ES T Body Mass Index 26.73 02/17/2025 9:18 AM EST documented in this encounter Functional [...] all 02/17/2025 10:13 AM Jamir Mcgraw * How difficult have these problems made it for you to do your work, take care of things at home, or get along with other people? Answer Date of Assessment Author Not difficult at all 02/17/2025 10:13 AM Jamir Singh documented as of this encounter Miscellaneous Notes * Progress Notes - Edison Skaggs MD - 02/17/2025 8:[address] General Medical Oncology Clinic Note: Cancer Staging [...] She had surgery about 1 year ago in 11/2023 Her last treatment was on March 2024. She had finished 3 cycles of adjuvant FOLFOX stopped due totolerability. The patient had CAT scan on January 11 2025 that revealed stable to decreased multiple bilateral lung nodules and increased reticular and retroperitoneal adenopathy with a close attention has been required. Of note, the patient had bone scan back on January 31, 2025 and didn't reveal any evidence of bone metastases. Patient was admitted recently to the hospital from February 13 to February 14 due to increasing abdominal pain, was given hydromorphone every 8 hours for 3 days for pain, cat scan of the abdomen and pelvis without contrast was done and revealed increase in size of the retrocrural adenopathy from 1 cm to 1.8 cm and small right common iliac lymph nodes. Patient is scheduled for biopsy with IR. A recent CT scan without contrast showed an increase in size of the left periaortic lymph nodes to 2.1 cm We had a discussion today with the patient about our plan framework, with biopsy of the left paraaortic lymph nodes. Patient is scheduled for IR appointment on February 21. We will discuss with the patient that we are worry about her lymph nodes that could represent recurrence of her tumor. We will see the patient on March 10, we will schedule her CAT scan of the chest abdomen pelvis with contrast on that day, we will send for Shae from the original surgical specimen and the peripheral blood samples respectively. We will determine our next course of action at the next clinic visit , our discussion with her for today visit on 02/17/25 as follows History of Present Illness The patient is a 44-year-old female who presents for evaluation of abdominal pain. She was recently hospitalized due to knife-like abdominal pain that intensified upon standing aftersitting for a while. The pain was localized to the colon and described as pulsating. Despite receiving pain medication in the emergency department, she required hospitalization from Friday until Friday. A CT scan without contrast revealed enlarged lymph nodes, which were previously noted during herlast visit. She has an upcoming appointment with interventional radiology on 02/21/2025 for a biopsy. She also has a scheduled consultation with pain management today for potential internal pain relief measures. She reports no numbness or tingling in her hands or feet. She experiences fatigue easily, necessitating rest after activities such as showering. Her fatigue has been progressively worsening, with a recent episode of a resting heart rate of 128 following a short walk from her car to therapy. She hasno history of cardiac issues. She continues to vape and has a poor appetite, often consuming only asmall hamburger throughout the day. She does not feel hungry and experiences bloating when she eatsslowly. Her weight has remained stable. She received a blood thinner injection in her abdomen during her hospital stay and reports no leg swelling. 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 She still has her port in place. PAST SURGICAL HISTORY: Surgery for stage II cancer in 12/2023. SOCIAL HISTORY The patient admits to vaping. Review of systems: A 14 point review [...] Patient presented to her local ER in [facility] with 2-3 weeks of progressive abdominal [...] cystic neck mass in the right neck. [facility] Path: follicular cells in a background [...] Age of Onset Lung cancer Mother Zara Melia Hypercholesterolemia Mother Zara Melia Hypertension Mother Zara Melia Hypertension Father Brian Serrano Hypercholesterolemia Father Brian [...] 3 months of treatment in March 2024. Patient had CAT scan back in December 2024 which revealed more prominent retroperitoneal lymph nodes, she had stable lung nodules, she was admitted to the hospital from February 13 and was discharged February 14 with a increasing abdominal pain and was discharged on hydrocodone and was scheduled forIR directed biopsy from the retrocrural lymph node that appears more conspicuous and has been increase in size in the CAT scan without contrast that was done on February 13, 2025 compared to the CAT scan that was on January 11, 2025 We will send for tumor CT DNA today Patient is scheduled for bone with intervention Radiology for biopsy of the increase in size retroperitoneal lymph node We will update cat scan of the chest abdomen pelvis on mid February and patient will be seen at that time after we have the results of the CT DNA, and potentially the IR guided biopsy CARIS from the old specimen was requested ( she has MSI stable based on IHC) 2. Tobacco use - Complicates care currently [...] seen and examined with attending physician, Dr. Delacruz, who assisted with formulation ofthe plan as described. Edison Skaggs MD, PGY5 Hematology and Medical Oncology fellow Pager number : [phone] [facility] HEMATOLOGY/BMT AND CELLULAR THERAPY PROGRAM [address] [place] [phone] Cosigned by Franchesca Delacruz MD at 02/18/2025 8:05 PM EST Associated attestation - Franchesca Delacruz MD - 02/18/2025 8:05 PM EST I saw and evaluated the patient with the resident/fellow. I discussed the case with the resident/fellow and agree with the findings and plan as documented. 35 minutes were spent with the patient of which 23 or more were counseling minutes regarding plan and coordination of care and follow up scheduling, symptom management, and possible treatment side effects. Pending biopsy documented in this encounter Plan of Treatment Upcoming Encounters Date Type Department Care Team ([facility] Contact Info) Description 03/30/2025 8:30 AM EST Appointment [facility] Infusion Clinic [address] [place] [address] 2025 9:00 AM EST Appointment [facility] Infusion Clinic [address] [place] [address] 04/14/2025 7:45 AM EST Clinical Support [facility] Multidisciplinary Oncology Clinic [address] [place] [address] 04/14/2025 8:00 AM EST Office Visit [facility] Multidisciplinary Oncology Clinic [address] [place] [address] Edison Skaggs MD [address] [place] [address] 04/14/2025 9:30 AM EST Appointment [facility] [address] [place] [address] 04/16/2025 10:30 AM EST Appointment [facility] [address] [place] [address] 04/28/2025 8:30 AM EST Appointment [facility] [address] [place] [address] 04/30/2025 10:00 AM EST Appointment [facility] Infusion Clinic [address] [place] [address] 06/29/2025 12:30 PM EDT Clinical Support [facility] [address] [facility]nd [place] [address] 06/29/2025 1:00 PM EDT Office Visit [facility] [address] [place] [address] Danny Coon MD [address] [place] [address] Pending Results Name Type Priority Associated Diagnoses Date /Time Signatera Only Initial Draw Lab Routine Colorectal cancer (CMS/HCC) 02/17/2025 8:54 AM EST Scheduled Orders Name Type Priority Associated Diagnoses Orde r Schedule Signatera Only Initial Draw Lab Routine Colorectal cancer (CMS/HCC) Expected: 02/17/2025, Expires: 08/20/2026 documented as of this encounter Procedures Procedure Name Priority Date/Time Associated Diagnosis Comments SIGNATERA (NAY COLLECTION) Routine 02/28/2025 4:19 PM EST Colorectal cancer (CMS/HCC) [facility] TUMOR SEEK HYBRID + IHCS AND OTHER TESTS BY TUMOR TYPE Routine 02/17/2025 11:16 AM EST Colorectal cancer (CMS/HCC) documented in this encounter Results * (ABNORMAL) Signatera Only Nay Managed Subsequent Draws (02/28/2025 4:19 PM EST) SIGNATERA TEST RESULT POSITIVE (A) 02/28/2025 4:19 PM EST [facility] SIGNATERA MTM READOUT 505.41(A ) MTM/ml 02/28/2025 4:19 PM EST [facility] Comment: Please see the attached PDF for more information. Limitations Signatera is a personalized, tumor-informed test for the longitudinal detection of circulating tumor DNA (ctDNA). Interval testing is recommended for all patients. Studies have demonstrated that when ctDNA is detected (Signatera Positive) following surgery or definitive treatment, the risk for disease relapse is high without further treatment. Conversely, when ctDNA is not detected, the patient may be considered at lower risk for relapse. For those with multiple timepoints, upward trending ctDNA levels are suggestive of increasing tumor burden (1,2). For a single time point in isolation, the absolute MTM/mL value has no known clinical significance and should not be compared across patients. Test results should be interpreted in context of other clinicopathological features. ctDNA detection sensitivity may be limited due to blood collection within two weeks of surgery and while the patient is on therapy. Signatera is a quantitative test and reports in units of mean tumor molecules per ml (MTM/mL), which is comprised of three measured components (plasma volume, cell free DNA (cfDNA) concentration, and Variant Allele Frequency (VAF)). The MTM/mL number will be qualified if any measured component falls outside the analytical measurement range for that component. The analytical sensitivity is 95% at the limit of detection (0.3 MTM/mL). Results obtained are specific to the assessed time point. A negative test result does not definitively indicate the absence of cancer. This test is not designed to detect or report germline variation, nor does it infer hereditary cancer risk for the patient. Each Signatera assay is designed to a single tumor for a given patient. At this time, multiple personalized Signatera assays cannot be developed for the same patient. This test is designed to detect ctDNA from the assayed tumor only; new primary tumors will not be detected. There is a low risk that a new primary may share a variant that could interfere with the Signatera test. Testing cannot be performed in patients who are , have a history of bone marrow transplant, or history of blood transfusion within three months. This test is expected to have limited sensitivity in cancer types such as GIST, renal cell carcinomas, primary brain tumors, and lymphoma due to limited ctDNA shed. 1 Cy SV, Easton SYC, Karthik MENENDEZ, et al. Personalized circulating tumor DNA analysis as a predictive biomarker in solid tumor patients treated with pembrolizumab. Nature Cancer. 2020;1(9):873-881. 2 Deidra TV, Jessica N, et al., Circulating Tumor DNA in Stage III Colorectal Cancer, beyond Minimal Residual Disease Detection, toward Assessment of Adjuvant Therapy Efficacy and Clinical Behavior of Recurrences. Clin Cancer Res. 2020; 28(3):507-517. Methodology FFPE samples are reviewed by a pathologist to assess tumor content and percent tumor nuclei. Tumor DNA is extracted using Digital [employer]ing[employer] Mag-Bind FFPE DNA/RNA kit. Whole genomic DNA is isolated from peripheral blood using QIAamp DNA Blood MiniKit to provide DNA for germline sequencing. Circulating tumor DNA (ctDNA) is extracted from plasma derived from whole blood samples collected in cell-free DNA blood tubes ([employer]) using the QIAsymphony automated or manual extraction method (Qiagen). Whole-exome sequencing is performed on tumor and peripheral blood DNA using the [employer] whole-exome sequencing assay. Using a proprietary algorithm, putative, clonal variants present in the tumor but absent in the germline DNA are identified to design the customized multiplex PCR assay. The customized PCR assays are run to detect presence or absence of these variants within circulating plasma. A patient's plasma sample is considered ctDNA positive when at least two individual-specific tumor variants are detected. When fewer than two individual-specific tumor variants are observed, a negative result is issued. Pathology services and whole exome sequencing is performed at [facility] (CLIA ID# [id number]), [address] [place] [address]. Disclaimer The extraction, library preparation, and sequencing for this test were performed by [facility] [address] [place] [address] (CLIA ID [id number]). The data analysis and reporting for this test were performed by [facility] [address] [place] [address]. [address] [place] [address] (CLIA ID [id number]). This test was developed and its performance characteristics determined by [facility]. The test has not been cleared or approved by the U.S. Food and Drug Administration (FDA). CAP accredited, ISO 58360 certified, and CLIA certified. Pathology services and whole exome sequencing for this test were performed by [facility] [address] [place] [address] (CLIA ID [id number]). 2020 [employer]. All Rights Reserved. Blood specimen (specimen) Venous blood specimen / Unknown 02/19/2025 3:00 AM EST us Broderick Taylor MD [facility] BLOOD ORDERABLES Yoanna sagastume Result [facility] [address] [place] [address], [facility] [address] [place], [place] [address] * (ABNORMAL) [facility] [place] Cancer Seek Hybrid??? + IHCs and Other Tests by Tumor Type (02/17/2025 11:16 AMEST) CARON PD-L1 (22C3) Negative 2024 8:42 PM EST [facility] CARIS Mismatch Repair Status Proficient (Intact) 02/27/2025 8:42 PM EST [facility] CARIS Genomic Loss of Heterozygosity - Exome Low 10% 02/27/2025 8:42 PM EST [facility] CARIS Microsatellite Instability - Exome Stable 02/27/2025 8:42 PM EST [facility] CARIS Tumor Mutational Bethel - Exome Low 3 per Mb 02/27/2025 8:42 PM EST [facility] CARIS Her2/Karl Negative 02/27/2025 8:42 PM EST [facility] CARIS MLH1 Intact nuclear expression 02/27/2025 8:42 PM EST [facility] CARIS MSH2 Intact nuclear expression 02/27/2025 8:42 PM EST [facility] CARIS MSH6 Intact nuclear expression 02/27/2025 8:42 PM EST [facility] CARIS PMS2 Intact nuclear expression 02/27/2025 8:42 PM EST [facility] CARIS HLA-A - Exome A*03:01,A*25: 01 02/27/2025 8:42 PM EST [facility] CARIS HLA-B - Exome B*07:02,B*18: 01 02/27/2025 8:42 PM EST [facility] CARIS HLA-C - Exome C*12:03,C*07: 02 02/27/2025 8:42 PM EST [facility] Tissue Non-blood Collection / Unknown 02/17/2025 11:16 AM EST 02/17/2025 11:17 AM EST Narrative This result has genomic variants that were not included in this document. us Franchesca Delacruz MD LAB MOL DX NO SOURCE Final Resu lt [facility] [address] [place] [id number], * Thyroglobulin Antibody and Thyroglobulin (MARIA TERESA or LC-MSMS) (02/17/2025 8:54 AM EST) Thyroglobulin Antibody <1.0 <4.0 IU/mL 02/17/2025 10:44 AM EST [facility] Blood Venous blood specimen / Unknown Venipuncture / Unknown 02/17/2025 8:54 AM EST 02/17/2025 9:19 AM EST Broderick Taylor MD LAB BLOOD ORDERABLES Final R esult Performing Organization Address [facility] Co de Phone Number [facility] [address] [place] [address] * (ABNORMAL) CEA (02/17/2025 8:54 AM EST) CEA, Serum 18.5(H) <4.0 ng/mL 02/17/2025 10:26 AM EST [facility] Blood Venous blood specimen / Unknown Venipuncture / Unknown 02/17/2025 8:54 AM EST 02/17/2025 9:16 AM EST Narrative [facility] - 02/17/2025 10:26 AM EST Normal range for smokers: < 5.5 ng/ml Normal range for non-smokers: <=4.0 ng/ml Performed by [employer] electrochemiluminescent immunoassay. Results obtained with different test methods or kits cannot be used interchangeably. Broderick Taylor MD LAB BLOOD ORDERABLES Final R esult Performing Organization Address City/[facility]/ZIP Co de Phone Number [facility] [address] [place] [address] documented in this encounter Visit Diagnoses Diagnosis Colorectal cancer (CMS/HCC)- Primary Malignant neoplasm of colon, unspecified site Overlapping malignant neoplasm of colon (CMS/HCC) documented in this encounter Additional Health Concerns Assessment Noted Time PHQ-9 Depression Total Score: 0 06/22/19 25 1:53 PM EDT A fall risk assessment has been complete d for the patient 02/17/2025 10:13 AM EST A Body Mass Index follow-up plan has been documented for the patient 02/17/2025 12:13 PM EST documented as of this encounter Care Teams Refining Machine Operator Relationship Specialty Start Date End Date Sergey Oh MD PCP - General 11/13/21 Jean Mak MD [address] [address] Surgeon Otolaryngology 11/21/21 Alice Chou, RN None None Registered Nurse 02/14/25 documented as of this encounter
--- OUTSIDE RECORDS SUMMARY | 2025-02-17 10:00 | XMS_ITS | Encounter Summary ---
Author Organization [facility] Address [address] [place] [address] Care Team Providers Care Supervisor Yard Name Role Phone Sergey Oh MD Primary Care Provider [phone] Jean Mak MD Unavailable [phone] Alice Chou RN Unavailable Unavailable Reason for Referral * Imaging (Routine) - Pending Review Specialty Diagnoses / Procedures Referred By Contac t Referred To Contact Radiology Diagnoses Thoracic spine pain Procedures CT Thoracic Spine wo IV Contrast Abdiel Ortez MD [address] [facility] [address] [address] Phone: tel: fax: Referral ID Status Reason Start Date Expiration Date V isits Requested Visits Authorized [id number] Pending Review 02/17/2025 08/19/2026 1 1 * Imaging (Routine) - Pending Review Specialty Diagnoses / Procedures Referred By Contac t Referred To Contact Radiology Diagnoses Spondylosis of cervical region without myelopathy or radiculopathy Procedures CT Cervical Spine wo IV Contrast Abdiel Ortez MD [address] [facility] [address] [address] Phone: tel: fax: Referral ID Status Reason Start Date Expiration Date V isits Requested Visits Authorized [id number] Pending Review 02/17/2025 08/19/2026 1 1 * Consultation (Routine) - Authorized Specialty Diagnoses / Procedures Referred By Contact Referred To Contact Physical Medicine and Rehabilitation Diagnoses Spondylosis of cervical region without myelopathy or radiculopathy Myalgia, other site Thoracic spine pain Abdiel Ortez MD [address] [address] Phone: tel: fax: [facility] [place] [facility] [address] [place] [address] Phone: tel: fax: Referral ID Status Reason Start Date Expiration Date Visits Requested Visits Authorized [id number] Authorized Specialty Services Required 08/19/2026 1 1 Scheduling Instructions Myofascial Pain Cervical and Thoracic region. CT Scans pending Reason for Visit * Reason Comments Consult * Consultation (Routine) - Closed Specialty Diagnoses / Procedures Referred By Contac t Referred To Contact Pain Medicine Diagnoses Lymph node enlargement Angelito Martin MD [address] [place] [address] Phone: tel: fax: [facility] Interventional Pain Medicine [address] [place] [phone] Phone: tel: fax: Referral ID Status Reason Start Date Expiration Date V isits Requested Visits Authorized [id number] Closed Specialty Services Required 02/14/2025 08/16/2026 1 1 Encounter Details Date Type Department Care Team (Late st Contact Info) Description 02/17/2025 10:00 AM EST Office Visit [facility] Interventional Pain Medicine [address] [place] [address] Abdiel Ortez MD [address] [place] [address] 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); Myalgia, other site; Thoracic spine pain Social History Tobacco Use Types Packs/Day Years Used Date Smoking Tobacco: Former Cigarettes 1 32.6 S tarted: 03/31/1994 Passive Smoke Exposure: Current Smokeless Tobacco: Never Tobacco Cessation:Counseling Given: Not Answered Comments:Vaping Alcohol Use Standard [...] drink first t mono in the morning ([employer]) to steady your nerves or to get [...] Sign Reading Time Taken Comments Blood Pressure 93/71 02/17/2025 10:13 AM EST Pulse 103 02/17/2025 10:13 AM EST Temperature 36.3 C (97.4 F) 02/17/2025 10:13 AM EST Respiratory Rate 18 02/17/2025 10:13 AM EST Oxygen Saturation 97% 02/17/2025 10:13 AM EST Inhaled Oxygen Concentration - - Weight 68 kg (150 lb) 02/17/2025 10:13 AM EST Height 160 cm (5' 3 ) 02/17/2025 10:13 AM EST Body Mass Index 26.57 02/17/2025 10:13 AM EST documented in this encounter Functional Status * Over the past 2 weeks, how often have you been bothered by any of the following problems? Question Answer Date of Assessment Author Little interest or pleasure in doing things Not at all 02/17/2025 10:13 AM EST Jamir Shelton Feeling down, depressed, or hopeless Not at all 02/17/2025 10:13 AM EST Jamir Shelton Patient Health Questionnaire -2 Score 0 02/17/2025 10:13 AM EST Jamir Shelton * Question Answer Date of Assessment Author Thoughts that you would be b anel off or hurting yourself in some way Not at all 02/17/2025 10:13 AM EST Jamir Shelton * How difficult have these problems made it for you to do your work, take care of things at home, or get along with other people? Answer Date of Assessment Author Not difficult at all 02/17/2025 10:13 AM EST Jamir Hughes documented as of this encounter Miscellaneous Notes * Progress Notes - Abdiel Ortez MD - 02/17/2025 10:00 AM EST Images from the original note were not included. Interventional Pain Medicine New Patient Note Subjective: Referring Physician: Angelito Martin MD [address] [place] [phone] Record Review: I personally reviewed Discharge Records records Chief Complaint: Consult History of Present Illness: Anita Finnegan is a 44 y.o. female with PMHx of Medical History[1] Here to get help with her pain other than pain meds since they aren't working/helping- multiple areas of pain to address, she has chosen the top 2. Presents with: Site: Mid Back below bra strap to low back Severity: 11/07 Onset: 1 year- started after stomach surgery Descriptors: twisting, popping Aggravating Factors: everything Relieving Factors: nothing except for the pop Associated Symptoms: hip pain when she is sitting too long Site: Neck Pain- has a pinched nerve, Right Trap pain Severity: 11/07 Onset: years Descriptors: pulling frozen Aggravating Factors: using it Relieving Factors: heat/cold Associated Symptoms: makes her arm not work Current Medication: Current Pain Medications cyclobenzaprine (Flexeril) 10 MG tablet Take 1 tablet by mouth 3 times a day as needed for muscle spasms. HYDROcodone-acetaminophen ([place]) 7.5-325 MG tablet Take 1 tablet by mouth every 8 hours for 3 days. Previous Pain Medications: Previous Non-Interventional Treatment: heat ice inability to complete HEP due to increased pain Previous Interventions/Consults: Epidural Other Medical History reports that she has quit smoking. Her smoking use included cigarettes. She started smoking about 30 years ago. She has a 32.5 pack-year smoking history. She has been exposed to tobacco smoke. She has never used smokeless tobacco. Diabetes: na A1C: No results found for: HGBA1C Anticoagulation: Work Status/Pain related to work injury: na Review of Systems: CONSTITUTIONAL: denies fevers, chills HEENT: denies swallowing difficulties, sore throat CARDIOVASCULAR: denies chest pain, palpitations, syncope RESPIRATORY: denies shortness of breath, cough, wheezing GI: denies change in bowel habits, nausea, vomiting : denies change in bladder function, frequency, dysuria SKIN: denies rash, skin changes MSK: Per HPI NEURO: Per HPI PSYCH: Per HPI General Physical Exam: Constitutional Appears well-developed and well-nourished Neurological Alert and oriented to person, place, and time Psychiatric Normal mood and affect, behavior and judgment Head Normocephalic and atraumatic. Eyes Pupils are equal, round, and reactive to light. Neck Neck supple Cardiovascular Minimal to no peripheral edema, intact distal pulses Pulmonary/Chest Effort normal, no shortness of breath noted Skin Skin is warm and dry Neurologic & Musculoskeletal Exam Cervical Region Exam Right (+/-) Left (+/-) Cervical Musculature Tender w/ Palpation ++ - Cervical Facets Pain w/ Extension - - Upper Extremity Spurling's - - Upper Extremity Bakody's - - Sensation Right Left Neck normal normal C5: Shoulder normal normal C6: Thumb, radial aspect hand/forearm (Radial Nerve) normal normal C7: Long finger (Median Nerve) normal normal C8: Little finger, ulnar aspect of hand/forearm (Ulnar n.) normal normal T1: Medial forearm/arm normal normal Motor Strength Right Left C5: Shoulder abduction (Deltoid) 08/02 08/02 C5: Elbow flexion (Biceps, Brachialis) 08/02 08/02 C6: Wrist extension (ECRB, ECRL) 08/02 08/02 C7: Elbow extension (Triceps) 08/02 08/02 C8: Finger flexion (Manager Target Strength) 08/02 08/02 T1: Finger abduction 08/02 08/02 Reflexes Right Left C5: Biceps 2/4 2/4 C6: Brachioradialus 2/4 2 C7: Triceps 2/ 2 Hoffmans absent absent Clonus <3 beat <3 beat Lumbar Region Exam Right (+/-) Left (+/-) Lumbar Musculature Tender w/ palpation ++ ++ Posterior Column Pain w/ extension - - Anterior Column Pain w/ Flexion Sensation Right Left L2: Proximal anterior thigh normal normal L3: Mid anterior thigh normal normal L4: Medial leg/foot, great toe (Saphenous n.) normal normal L5: Dorsum of mid foot normal normal S1: Lateral leg/foot, little toe, Back of leg (Sural n.) normal normal Motor Strength Right Left L2: Hip flexion (Iliopsoas) 08/02 08/02 L3: Knee extension (Quad) 08/02 08/02 L4: Ankle DF (TA) 08/02 08/02 L5: Great Toe DF (EHL) 08/02 08/02 S1: Ankle PF, Foot Eversion (Peroneal longus/brevis) 08/02 08/02 S2: Great toe flexion (FHL), Knee Flexion 08/02 08/02 Reflexes Right Left L4: Patellar 2/4 2/4 S1: Achilles 2/4 2/4 Babinski Absent Absent Clonus Absent Absent SLR - - Crossed SLR - - Slump - - Thoracic TTP B/L Paraspinous at the bra line Imaging: Images of the following studies have been personally reviewed and my independent interpretation reveals as written: None Labs: Lab Results Component Value Date PLT 352 02/14/2025 Lab Results Component Value Date INR 1.0 06/21/2024 INR 0.9 03/18/2024 INR 1.0 05/21/2023 Assessment & Plan Latrice Finnegan is a 44 y.o. female myofascial pain in the cervical, thoracic regions. No conservative treatments. She does have extensive cancer hx. Needs imaging. Has port so no MRI. #Cervical pain -myofascial recommend OMT -obtain C-spine CT scan #Thoracic Pain -myofascial recommend OMT -obtain T-spine CT scan [1] Past Medical History: Diagnosis Date Anemia [...] (CMS/HCC) 12/2019 with left nasal bone fracture documented in this encounter Plan of Treatment Upcoming Encounters Date Type Department Care Team (Late st Contact Info) Description 03/30/2025 8:30 AM EST Appointment [facility] Infusion [facility] [address] [place] [address] 2025 9:00 AM EST Appointment [facility] [address] [place] [address] 04/14/2025 7:45 AM EST Clinical Support [facility] Multidisciplinary Oncology Clinic [address] [place] [address] 04/14/2025 8:00 AM EST Office Visit [facility] Multidisciplinary Oncology Clinic [address] [place] [address] Edison Skaggs MD [address] [place] [address] 04/14/2025 9:30 AM EST Appointment [facility] [address] [place] [address] 04/16/2025 10:30 AM EST Appointment [facility] [address] [place] [address] 04/28/2025 8:30 AM EST Appointment [facility] [address] [place] [address] 04/30/2025 10:00 AM EST Appointment [facility] [address] [place] [address] 06/29/2025 12:30 PM EDT Clinical Support [facility] [address] [facility] [place] [address] 06/29/2025 1:00 PM EDT Office Visit [facility] [address] [facility] [place] [address] Danny Coon MD [address] [facility] [address] [place] [address] Scheduled Orders Name Type Priority Associated Diagnoses Orde r Schedule CT Cervical Spine wo IV Contrast Imaging Routine Spondylosis of cervical region without myelopathy or radiculopathy Expected: 02/17/2025 (Approximate), Expires: 08/21/2026 CT Thoracic Spine wo IV Contrast Imaging Routine Thoracic spine pain Expected: 02/17/2025 (Approximate), Expires: 08/21/2026 Scheduled Referrals Name Type Priority Associated Diagnoses Order Schedule Ambulatory referral to Physical Medicine and Rehab Osteopathic Manual Medicine Outpatient Referral Routine Spondylosis of cervical region without myelopathy or radiculopathy Myalgia, other site Thoracic spine pain Expected: 02/17/2025 (Approximate), Expires: 08/21/2026 documented as of this encounter Visit Diagnoses Diagnosis Spondylosis of cervical region without myelopathy or radiculopathy- Primary Myalgia, other site Thoracic spine pain Pain in thoracic spine documented in this encounter Additional Health Concerns Assessment Noted Time PHQ-9 Depression Total Score: 0 06/22/19 25 1:53 PM EDT A fall risk assessment has been complete d for the patient 02/17/2025 10:13 AM EST A Body Mass Index follow-up plan has been documented for the patient 02/17/2025 12:13 PM EST documented as of this encounter Care Teams Supervisor Yard Relationship Specialty Start Date End Date Sergey Oh MD PCP - General 11/13/21 Jaen Mak MD [address] [address] Surgeon Otolaryngology 11/21/21 Alice Chou, RN None None Registered Nurse 02/14/25 documented as of this encounter
--- OUTSIDE RECORDS SUMMARY | 2025-02-21 13:00 | XMS_ITS | Encounter Summary ---
Author Organization Healthcare Address [address] [place] [address] Care Team Providers Care Mat Linker Name Role Phone Sergey Oh MD Primary Care Provider [phone] Jean Mak MD Unavailable [phone] Alice Chou RN Unavailable Unavailable Reason for Visit * Reason Comments Consult Encounter Details Date Type Department Care Team (Latest Contact Info) Description 02/21/2025 1:00 PM EST Office Visit MD Clinic Vascular Interventional Radiology [address], [place] [address] [place] [address] Manuela Pedersen, PRODUCTION SOLDERER, DNP [address] [place] [address] Localized enlarged lymph nodes (Primary Dx) Social History Tobacco Use Types [...] drink first t mono in the morning (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 0 02/12/2025 CAGE Questionnaire Score 0 PHQ-2A Answer Date Recorded Patient Health Questionnaire-2 [...] Sign Reading Time Taken Comments Blood Pressure 111/76 02/21/2025 12:59 PM EST Pulse 110 02/21/2025 12:59 PM EST Temperature 36.9 C (98.5 F) 02/21/2025 12:59 PM EST Respiratory Rate - - Oxygen Saturation 99% 02/21/2025 12: 59 PM EST Inhaled Oxygen Concentration - - Weight 66.1 kg (145 lb 11.6 oz) 025 12:59 PM EST Height 160 cm (5' 2.99 ) 02/21/2025 12: 59 PM EST Body Mass Index 25.82 02/21/2025 12:59 PM EST documented in this encounter Miscellaneous Notes * H&P - Manuela Pedersen, CASSIUS, CHARLI - 02/21/2025 1:00 PM EST Images from the original note were not included. Verbal consent was obtained to use ambient listening technology to assist in the documentation of the encounter: yes Latrice Finnegan presents today for consultation as requested by No ref. provider found, regarding assessment prior to CT guided lymph node biopsy. Subjective History of Present Illness: HPI History of Present Illness Latrice Finnegan is a 44 y.o. year old female with a PMHx of COPD, thyroid cancer s/p thyroidectomy, colon cancer stage II A s/p sigmoidectomy and adjuvant chemotherapy completed in March 2024, COPD. Presents to the [facility] clinic for lymph node biopsy. She was recently hospitalized 02/12/25-02/14/25 for worsening abdominal pain, and poor oral intake. Of note CT AP on 01/11 noted increased retrocrural and retroperitoneal adenopathy. [facility] CT AP 02/12 noted worsening retrocrural and retroperitoneal adenopathy concern of necrotic lymph node. 02/13/25 CT AP noted diffuse retroperitoneal adenopathy with inflammation. The patient reports constant abdominal pain rated 4/10, to 10/10 radiating to her back and associated with a hernia, which has been present since last Thanks. She describes the pain as stretching and heartbeat-like, worsened with movement and relieved by specific positions. She notes tenderness in the middle and lower left abdomen, occasional hernia protrusion that she manually reduces, andpoor appetite, typically consuming only one meal per day. She follows with Oncology for ongoing surveillance. She reports a history of sedation without complications; however, she experienced hypotension and bleeding during a due to uterine or placental abruption. She also notes postoperative dropsin blood pressure and oxygen saturation. Following her stomach surgery, administration of oxycodoneand tramadol caused hypotension and respiratory depression, necessitating home oxygen therapy. She states she is able to lay flat. Allergies: Patient has no known allergies. Medications: Current Medications[1] Past Surgical History: Latrice has a past surgical history that includes Total thyroidectomy (Bilateral, 09/09/2019); Modified radical neck dissection (Bilateral, 09/09/2019); section, classic; Tubal ligation; Tonsillectomy; Cholecystectomy; Knee surgery (Right); Modified radical neck dissection (Right, 12/10/2021); Colon surgery; cervical conization; Colonoscopy; Upper gastrointestinal endoscopy; Portacath placement; and Bladder diverticulectomy. Past Medical History: She has a past medical history of Anemia (When i was in low grade school 1-4), Arthritis, Colon cancer (CMS/HCC), Colon cancer (CMS/HCC), COPD (chronic obstructive pulmonary disease), Cyst of uterus,DDD (degenerative disc disease), cervical (01/21/2024), Dental disease (01/21/2024), Diverticulitis, Drug abuse, Exercise tolerance finding (01/21/2024), Fractured hand, Headaches, Hearing trouble, Hepatitis B, HPV in female, Hyperlipidemia, Hypothyroidism, IV drug abuse, Left breast mass, Lung cancer (CMS/HCC), Nicotine addiction, Ovarian cyst, and Traumatic subdural hematoma (CMS/HCC) (12/2019). Past Family History: Herfamily history includes Hypercholesterolemia in her father and mother; Hypertension in her father and mother; Lung cancer in her mother; Thyroid disease in her father. Past Social History: She reports that she has quit smoking. Her smoking use included cigarettes. She started smoking about 30 years ago. She has a 32.5 pack-year smoking history. She has been exposed to tobacco smoke. She has never used smokeless tobacco. She reports current alcohol use of about 2.0 standard drinks of alcohol per week. She reports that she does not currently use drugs after having used the following drugs: Marijuana. Review of Systems: Review of Systems 14 point ROS negative except for above. Objective Physical Exam: There were no vitals filed for this visit. Physical Exam Vitals and nursing note reviewed. Constitutional: General: She is not in acute distress. Appearance: Normal appearance. She is obese. HENT: Head: Normocephalic and atraumatic. Mouth/Throat: Mouth: Mucous membranes are moist. Eyes: Extraocular Movements: Extraocular movements intact. Cardiovascular: Rate and Rhythm: Normal rate and regular rhythm. Pulses: Normal pulses. Pulmonary: Effort: Pulmonary effort is normal. No respiratory distress. Abdominal: General: There is no distension. Palpations: Abdomen is soft. Tenderness: There is no abdominal tenderness. Musculoskeletal: General: Normal range of motion. Cervical back: Neck supple. No tenderness. Right lower leg: No edema. Left lower leg: No edema. Skin: General: Skin is warm and dry. Neurological: General: No focal deficit present. Mental Status: She is alert and oriented to person, place, and time. Imaging: CT Abdomen Pelvis wo IV Contrast Narrative: CLINICAL INDICATION: Abdominal pain, acute, nonlocalized TECHNIQUE: Multiple axial CT images were obtained from lung bases through pubic symphysis without the administration of IV contrast. Reformatted images in the coronal and sagittal planes were generated from theaxial data set to facilitate diagnostic accuracy. Total [...] and Body Wall: No suspicious osseous abnormality Impression: Diffuse retroperitoneal and middle mediastinal adenopathy with associated inflammation,unchanged accounting for differences in technique. CRITICAL RESULT: No. COMMUNICATION: Per this written report. Drafted by Jean Kumar MD on 02/13/2025 1:57 PM Final report signed by Jean Kumar MD on 02/13/2025 2:00 PM Labs: Lab Results Component Value Date WBC 8.60 02/14/2025 HGB 12.4 02/14/2025 HCT 39.6 02/14/2025 PLT 352 02/14/2025 Lab Results Component Value Date CALCIUM 9.3 02/14/2025 MG 2.0 02/14/2025 PHOS 4.0 02/14/2025 Lab Results Component Value Date AST 21 02/13/2025 ALT 13 02/13/2025 ALKPHOS 116 (H) 02/13/2025 Lab Results Component Value Date APTT 28 03/18/2024 INR 1.0 06/21/2024 Assessment/Plan Medical Decision Making/Plan: Assessment & Plan Localized enlarged lymph nodes Acute on chronic abdominal pain Concern for necrotic retroperitoneal lymph node Colon cancer stage II A - s/p sigmoidectomy and adjuvant chemotherapy completed in March 2024 -Follows with [facility] - Hospitalized 02/12-02/14/25 Severe abdominal pain and decrease PO intake - Personally reviewed CT AP on 01/11 noted increased retrocrural and retroperitoneal adenopathy. Increased retrocrural adenopathy, with an index node measuring 1.8 cm. Increased retroperitoneal adenopathy. For example left para- aortic lymph notes measure up to 1.6 cm. A right common iliac lymph node measures 9 mm. - Personally reviewed A CT AP 02/12 revealed necrotic lymph nodes - Personally reviewed CT AP 02/13: noted left periaortic lymph node measures 2.1 cm and enlarged right common iliac lymph node, unchanged from 02/[address] AP[address] - Right common iliac LN - Periaortic LN PLAN: - Will perform CT guided retroperitoneal lymph node biopsy (Periaortic or right common iliac LN) on03/01. - Denies anticoagulation - NPO at 0000 prior to procedure - Ordered INR - Consent obtained Thank you for allowing me to participate in the care of Latrice Finnegan. Manuela Pedersen APRN, DNP Vascular & Interventional Radiology I spent >49 minutes on this encounter; including preparing to see the patient, which involved review/interpretation of diagnostics and reports; obtaining and/or reviewing separately obtained history; performing appropriate physical exam; communicating finding, reviewing labs/imaging, counseling/educating the patient, discussing potential complications (Bleeding, infection, damage to surrounding structures) ; documentation in EMR; and formulating subsequent treatment plan. [1] Current Outpatient Medications: albuterol 108 (90 Base) MCG/ACT inhaler, Inhale 2 puffs 4 times a day as needed., Disp: , Rfl: cyclobenzaprine (Flexeril) 10 MG tablet, Take 1 tablet by mouth 3 times a day as needed for muscle spasms., Disp: , Rfl: ergocalciferol 1.25 MG (33416 UT) capsule, TAKE ONE (1) CAPSULE BY MOUTH ONE (1) TIME PER WEEK. (Patient taking differently: Take 1 capsule by mouth 1 time per week.), Disp: 12 capsule, Rfl: 3 ipratropium-albuterol (Duo-Neb) 0.5-2.5 mg/3 mL nebulizer solution, Take 3 mL by nebulization 4 times a day as needed., Disp: , Rfl: levothyroxine (Synthroid, Levoxyl) 125 MCG tablet, Take 1 tablet by mouth daily. (Patient taking differently: Take by mouth. 125mcg daily except for Friday she takes 1.5 tablets (187.5mcg)), Disp: 90tablet, Rfl: 1 naloxone (Narcan) 4 mg/0.1 mL nasal spray, 1. Give 1 spray in nostril for no/slow breathing or cannot wake after opioid use 2. Call 911 3. Repeat in other nostril if symptoms continue, Disp: 1 each, Rfl: 0 polyethylene glycol (Miralax) 17 GM/SCOOP powder, Take 17 g by mouth 2 times a day., Disp: , Rfl: tenofovir disoproxil fumarate (Viread) 300 MG tablet, Take 1 tablet (300 mg) by mouth daily., Disp:30 tablet, Rfl: 11 tiotropium-olodaterol (Stiolto Respimat) 2.5-2.5 MCG/ACT aerosol solution inhaler, Inhale 2 Inhalations daily., Disp: , Rfl: documented in this encounter Plan of Treatment Upcoming Encounters Date Type Department Care Team (Late st Contact Info) Description 03/30/2025 8:30 AM EST Appointment [facility] [address] [place] [address] 2025 9:00 AM EST Appointment [facility] [address] [place] [address] 04/14/2025 7:45 AM EST Clinical Support [facility] [address] [place] [address] 04/14/2025 8:00 AM EST Office Visit [facility] [address] [place] [address] Edison Skaggs MD [address] [place] [address] 04/14/2025 9:30 AM EST Appointment [facility] [address] [place] [address] 04/16/2025 10:30 AM EST Appointment [facility] [address] [place] [address] 04/28/2025 8:30 AM EST Appointment [facility] [address] [place] [address] 04/30/2025 10:00 AM EST Appointment [facility] [address] [place] [address] 06/29/2025 12:30 PM EDT Clinical Support [facility] [address] [address] 06/29/2025 1:00 PM EDT Office Visit [facility] [address] [address] Danny Coon MD [address] [place] [phone] documented as of this encounter Results * Prothrombin Time/INR (02/21/2025 1:32 PM EST) [facility] Prothrombin Time 13.7 12.0 - 14.3 sec LAB COAGULATION METHOD 02/21/2025 3:06 PM EST [facility] INR 1.0 0.9 - 1.1 LAB COAGULATION METHOD 02/21/2025 3:06 PM EST [facility] Blood Venous blood specimen / Unknown Venipuncture / Unknown 02/21/2025 1:32 PM EST 02/21/2025 1:33 PM EST Narrative [facility] - 02/21/2025 3:06 PM EST OPTIMAL INR RANGES FOR PATIENT ON ORAL ANTICOAGULANT THERAPY Prevention of venous thromboembolism INR 2.0 to 3.0 In patients with heart disease: Atrial fibrillation INR 2.0 to 3.0 Valvular heart disease INR 2.0 to 3.0 Tissue heart valves INR 2.0 to 3.0 Mechanical prosthetic valves INR 2.5 to 3.5 Prevention of recurrent FL INR 2.5 to 3.5 Manuela Pedersen PRODUCTION SOLDERER, DNP LAB BLOOD ORDERABLES F inal Result [facility] [address] [place] [address] documented in this encounter Visit Diagnoses Diagnosis Localized enlarged lymph nodes- Primary documented in this encounter Additional Health Concerns Assessment Noted Time PHQ-9 Depression Total Score: 0 06/22/19 1:53 PM EDT A fall risk assessment has been complete d for the patient 02/17/2025 10:13 AM EST A Body Mass Index follow-up plan has been documented for the patient 02/21/2025 7:21 PM EST documented as of this encounter Care Teams Mat Linker Relationship Specialty Start Date End Date Sergey Oh MD PCP - General 11/13/21 Jean Mak MD [address] [facility] Cancer [address] [phone] Surgeon Otolaryngology 11/21/21 Alice Chou RN None None Registered Nurse 02/14/25 documented as of this encounter
--- OUTSIDE RECORDS SUMMARY | 2025-03-09 06:11 | XMS_ITS | Encounter Summary ---
Author Organization [facility] Address [address] [id number] Care Team Providers Care Washcoat Wiper Name Role Phone Sergey Oh MD Primary Care Provider [phone] Jean Mak MD Unavailable [phone] Alice Chou RN Unavailable Unavailable Reason for Referral * Imaging (Routine) - Closed Specialty Diagnoses / Procedures Referred By Dhruv kebede Referred To Contact Radiology Diagnoses Localized enlarged lymph nodes Procedures CT Guided Biopsy Retroperitoneal Manuela Pedersen APRN, DNP [address] [place] [address] Phone: tel: fax: Referral ID Status Reason Start Date Expiration Date Visits Re quested Visits Authorized [id number] Closed 02/13/2025 08/15/2026 1 1 Reason for Visit * Imaging (Routine) - Closed Specialty Diagnoses / Procedures Referred By Dhruv kebede Referred To Contact Radiology Diagnoses Localized enlarged lymph nodes Procedures CT Guided Biopsy Retroperitoneal Manuela Pedersen APRN, DNP [address] [place] [address] Phone: tel: fax: Referral ID Status Reason Start Date Expiration Date Visits Re quested Visits Authorized [id number] Closed 02/13/2025 08/15/2026 1 1 Encounter Details Date Type Department Care Team (Latest Contact Info) Description 03/09/2025 6:11 AM EST - 03/09/2025 11:59 PM EST Hospital Encounter [facility] [address] [place] [address] Dallin Garrett, RN None None Localized enlarged lymph nodes Discharge Disposition: Home or Self Care Social History Tobacco Use Types Packs/Day Years Used Date Smoking Tobacco: Former Cigarettes 1 32.6 S tarted: 03/31/1994 Passive Smoke Exposure: Current Smokeless Tobacco: Never Comments:Vaping Alcohol Use Standard Drinks/Week Comments Yes 2 (1 standard drink = 0.6 oz pur e alcohol) Occasional PHQ-2 Answer Date Recorded Patient Health Questionnaire-2 Score 0 03/10/2025 PHQ-9 Answer Date Recorded Patient Health Questionnaire-9 [...] drink first t 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) to steady your nerves or to get [...] Sign Reading Time Taken Comments Blood Pressure 111/72 03/09/2025 9:30 AM EST Pulse 88 03/09/2025 9:30 AM EST Temperature 36.5 C (97.7 F) 03/09/2025 9:00 AM EST Respiratory Rate 21 03/09/2025 9:30 AM EST Oxygen Saturation 97% 03/09/2025 9:30 AM EST Inhaled Oxygen Concentration - - Weight 67.2 kg (148 lb 2.4 oz) 03/09/2025 6:35 A M EST Height 160 cm (5' 3 ) 03/09/2025 6:35 AM EST Body Mass Index 26.24 03/09/2025 6:35 AM EST documented in this encounter Functional Status * Calculated C-SSRS Risk Score (Lifetime/Recent) Answer Date of Assessment Author No Risk Indicated 03/09/2025 6:36 AM EST Christo Garrett RN * Question Answer Date of Assessment Author 1. Wish to be (Past 1 Month) No 025 6:36 AM EST Dallin Garrett RN 2. Non-Specific Active Suici juanis Thoughts (Past 1 Month) No 03/09/2025 6:36 AM EST Dallin Garrett RN 6. Suicidal Behavior (Lifetime) No 6:36 AM EST Dallin Garrett RN documented as of this encounter Discharge Instructions * Discharge Instructions* Dallin Garrett RN - 03/09/2025 9:06 AM EST General Biopsy Discharge The site of the biopsy may feel numb for a while if you got numbing medicine. You might have a little soreness after the needle biopsy. Keep the bandage clean, dry, and intact for 48 hours. Do not shower for 24 hours. Keep the bandage covered during showering. After 48 hours you may remove the bandage when showering. Let warm, soapy water run over the biopsy site, but do not scrub or pick at it. You may be sleepy after the biopsy if you got medicine to help you relax (sedation). Don't drive for 24 hours. Don't do heavy lifting, a lot of stair climbing, vigorous exercise, or take part in sports the day of your biopsy. You can get back to your regular activities as instructed by your healthcare provider. Call your healthcare provider right away if any of these occur: Infection (redness, pain, swelling, or drainage at the site of your biopsy). Excessive bleeding at the site of the biopsy. Call 911 right away if any of these occur: Shortness of breath Chest pain documented in this encounter Medications at Time of Discharge albuterol 108 (90 Base) MCG/ACT inhaler Inhale 2 puffs 4 times a day as needed. 09/19/2023 cyclobenzaprine (Flexeril) 10 MG tablet Take 1 tablet by mouth 3 times a day as needed for muscle spasms. ergocalciferol 1.25 MG (08219 UT) capsule TAKE ONE (1) CAPSULE BY [...] by mouth daily. 30 tablet 11 06/21/2024 tiotropium-oloda terol (Stiolto Respimat) 2.5-2.5 MCG/ACT aerosol solution inhaler Inhale 2 Inhalations daily. documented as of this encounter Miscellaneous Notes * Susana Valentin - Dallin Garrett RN - 03/09/2025 9:05 AM EST Images from the original note were not included. 229 Conscious Sedation FAQ What is conscious sedation and why would I need it? Conscious sedation uses pain medicines and sedatives to reduce the pain and anxiety of a procedure.Under conscious sedation, you are usually able to talk and answer questions during the procedure. But, you will probably not have any memory of it. It is often used for outpatient procedures because it often lets you to go home the same day. What can I expect during conscious sedation? When you arrive at the holding area, several things will happen. ? We will start an IV for medicines. You will be connected to a heart, blood pressure, and oxygen saturation monitor. ? We will take your vital signs and a brief history, then ask you about medicines you take. ? We will take you to have your procedure. You will receive the conscious sedation medicines through your IV. You will continue to be monitored during the entire procedure. ? As mentioned above, you will likely able to talk and answer questions. But you may not have any memory of the procedure. What can I expect after the procedure? After the procedure, we will take you to a recovery area. Your heart rate and blood pressure will be checked often. As the sedation wears off, you may feel some pain or discomfort. We will ask you torate your pain on a scale between 0 and 10. You will receive pain medicine as needed. You may have nausea and vomiting, but these can be helped with medicine. You may need oxygen while you are wakingup. What kind of recovery can I expect after conscious sedation? You may feel drowsy after conscious sedation. You may also have muscle aches, sore throat, occasional dizziness and headaches. Nausea can occur. Vomiting is less common. These side effects usually goaway quickly in the hours after conscious sedation. Please plan to take it easy for a few days until you feel back to normal. When can I go home? Most patients are ready to go home in about 1 to 3 hours. You may need to drink fluids and use the bathroom before you can leave. What can I do when I go home and how long will it take for the sedation to wear off? It usually takes about 24 hours for the sedation to wear off. ? Do not drive or run dangerous machines for 24 hours after receiving sedation medicines ? Do not use alcohol or non-prescription drugs for 24 hours after receiving sedation medicines ? Do not make important decisions for 24 hours after receiving sedation medicines You will receive specific instructions about your procedure and telephone numbers where your doctorcan be reached for any questions or concerns. * Post-Procedure Note - Elmira Lainez MD - 03/09/2025 8:00 AM EST Vascular and Interventional Radiology Brief Postprocedure Note Attending: Dr. Lainez First Aid Instructor: Chapincito Goyal MS Pre-operative Diagnosis: Periaortic adenopathy Post-operative Diagnosis: Same Type of Anesthesia: Conscious Sedation Description of Findings: Multiple 18g core biopsies were obtained from a periaortic lymph node Technical/Surgical Procedures Used: CT Specimen Obtained: Yes, 13 cores Complications: None Estimated Blood Loss: minimal Procedure Events Event Event Time Sedation Start 03/09/2025 8:19 AM Sedation Stop 03/09/2025 8:42 AM See detailed result report with images in PACS. The patient tolerated the procedure well without incident or complication and is in stable condition. * Pre-Procedure Note - Chapincito Goyal - 03/09/2025 8:00 AM EST Images from the original note were not included. INTERVENTIONAL RADIOLOGY SEDATION PRE-PROCEDURAL ASSESSMENT AND PLAN OF CARE Indication for procedure: The encounter diagnosis was Localized enlarged lymph nodes. Planned Procedure: Retroperitoneal lymph node biopsy Relevant past medical history: Colon cancer stage IIA s/p sigmoidectomy Previous problems with surgery, anesthesia or sedation: No Previous family history or problems with anesthesia or sedation: No History of tobacco use, alcohol use, or substance abuse: Tobacco Use History[1], Social History Substance and Sexual Activity Alcohol Use Yes Alcohol/week: 2.0 standard drinks of alcohol Types: 2 Shots of liquor per week Comment: Occasional , Social History Substance and Sexual Activity Drug Use Not Currently Types: Marijuana Comment: 01/21/24 no use for last 2 months Height and Weight: Visit Vitals BP 121/89 Pulse 94 Temp 36.5 ??C (97.7 ??F) (Temporal) Ht 1.6 m (5' 3 ) Wt 67.2 kg (148 lb 2.4 oz) SpO2 96% BMI 26.24 kg/m?? Allergies to medication: Patient has no known allergies. Current medications: Current Medications[2] Relevant Labs: Lab Results Component Value Date CREATININE 0.76 02/14/2025 EGFR 98.0 02/14/2025 INR 1.0 02/21/2025 PREGTESTUR 06/05/2022 Negative - women after 7 weeks gestation and dilute urine (specific gravity <1.010) may have false negative results. Plasma HCG testing is recommended. Test performed at Point of Care. Planned Sedation/Anesthesia: Moderate Airway assessment: normal Mallampati Score: II (hard and soft palate, upper portion of tonsils anduvula visible) ASA: ASA 2 - Patient with mild systemic disease with no functional limitations Directed physical examination: Vitals: 03/09/25 0900 BP: 121/89 Pulse: 94 Resp: 17 Temp: 36.5 ??C (97.7 ??F) SpO2: 96% GENERAL: Awake, alert, NAD CARDIAC: NSR on monitor PULM: Symmetric chest rise, no accessory muscle use ABD: Non-distended NEURO: A&Ox4, moving all extremities spontaneously Benefits, risks and alternatives of procedure and planned sedation have been discussed with the patient and/or their business center representative. All questions answered and they agree to proceed. [1] Social History Tobacco Use Smoking Status Former Current packs/day: 1.00 Average packs/day: 1 pack/day for 32.5 years (32.5 ttl pk-yrs) Types: Cigarettes Start date: 03/31/1994 Passive exposure: Current Smokeless Tobacco Never Tobacco Comments Vaping [2] Current Outpatient Medications Medication Sig Dispense Refill albuterol 108 (90 Base) MCG/ACT inhaler Inhale 2 puffs 4 times a day as needed. cyclobenzaprine (Flexeril) 10 MG tablet Take 1 tablet by mouth 3 times a day as needed for muscle spasms. ergocalciferol 1.25 MG (50026 UT) capsule TAKE ONE (1) CAPSULE BY MOUTH ONE (1) TIME PER WEEK. (Patient taking differently: Take 1 capsule by mouth 1 time per week.) 12 capsule 3 ipratropium-albuterol (Duo-Neb) 0.5-2.5 mg/3 mL nebulizer solution Take 3 mL by nebulization 4 times a day as needed. levothyroxine (Synthroid, Levoxyl) 125 MCG tablet Take 1 tablet by mouth daily. (Patient taking differently: Take by mouth. 125mcg daily except for Friday she takes 1.5 tablets (187.5mcg)) 90 tablet 1 naloxone (Narcan) 4 mg/0.1 mL nasal spray 1. Give 1 spray in nostril for no/slow breathing or cannot wake after opioid use 2. Call 911 3. Repeat in other nostril if symptoms continue 1 each 0 polyethylene glycol (Miralax) 17 GM/SCOOP powder Take 17 g by mouth 2 times a day. tenofovir disoproxil fumarate (Viread) 300 MG tablet Take 1 tablet (300 mg) by mouth daily. 30 tablet 11 tiotropium-olodaterol (Stiolto Respimat) 2.5-2.5 MCG/ACT aerosol solution inhaler Inhale 2 Inhalations daily. No current facility-administered medications for this encounter. Cosigned by Elmira Lainez MD at 03/09/2025 9:33 AM EST Associated attestation - Elmira Lainez MD - 03/09/2025 9:33 AM EST I saw and evaluated the patient with the medical/NUTRITION ASSOCIATE/PA student. I discussed the case with the medical/NUTRITION ASSOCIATE/PA student and agree with the findings and plan as documented. I personally performed the Examand Medical Decision Making. * Interval H&P Note - Chapincito Goyal - 03/09/2025 8:00 AM EST H&P reviewed. The patient was examined and there are no changes to the H&P. Will proceed with image guided periaortic lymph node biopsy. Cosigned by Elmira Lainez MD at 03/10/2025 10:33 AM EST Associated attestation - Elmira Lainez MD - 03/10/2025 10:33 AM EST I saw and evaluated the patient with the medical/NUTRITION ASSOCIATE/PA student. I discussed the case with the medical/NUTRITION ASSOCIATE/PA student and agree with the findings and plan as documented. I personally performed the Examand Medical Decision Making. Source Note - Manuela Pedersen APRN, CHARLI - 02/21/2025 1:00 PM EST Images [...] in March 2024, COPD. Presents to the [facility] clinic for lymph node biopsy. She was recently hospitalized 02/12/25-02/14/25 for worsening abdominal pain, and poor oral intake. Of note CT AP on 01/11 noted increased retrocrural and retroperitoneal adenopathy. [facility] CT AP 02/12 noted worsening retrocrural and retroperitoneal adenopathy concern of necrotic lymph node. 02/13/25 CT AP noted diffuse retroperitoneal adenopathy with inflammation. The patient reports constant abdominal pain rated 4/10, to 10/10 radiating to her back and associated with a hernia, which has been present since last . She describes the pain as stretching and heartbeat-like, worsened with movement and relieved by specific positions. She notes tenderness in the middle and lower left abdomen, occasional hernia protrusion that she manually reduces, andpoor appetite, typically consuming only one meal per day. She follows with [facility] for ongoing surveillance. She reports a [...] in the care of Latrice Finnegan. Manuela Pedersen, HSE COORDINATOR, DNP Vascular & Interventional Radiology I spent [...] spasms., Disp: , Rfl: ergocalciferol 1.25 MG (96992 UT) capsule, TAKE ONE (1) CAPSULE BY [...] Upcoming Encounters Date Type Department Care Team ([facility] st Contact Info) Description 03/30/2025 8:30 AM EST Appointment [facility] [address] [place] [address] 2025 9:00 AM EST Appointment [facility] [address] [place] [address] 04/14/2025 7:45 AM EST Clinical Support [facility] [address] [place] [address] 04/14/2025 8:00 AM EST Office Visit [facility] [address] [place] [address] Edison Skaggs MD [address] [place] [address] 04/14/2025 9:30 AM EST Appointment [facility] [address] [place] [address] 04/16/2025 10:30 AM EST Appointment [facility] [address] [place] [address] 04/28/2025 8:30 AM EST Appointment [facility] [address] [place] [address] 04/30/2025 10:00 AM EST Appointment [facility] [address] [place] [address] 06/29/2025 12:30 PM EDT Clinical Support [facility] [address] [address] 06/29/2025 1:00 PM EDT Office Visit [facility] [address] [address] [place] [address] [place] [phone] documented as of this encounter Procedures Procedure Name Priority Date/Time Associated Diagnosis Comments CT GUIDED BIOPSY RETROPERITONEAL Routine 03/09/2025 8:43 AM EST Localized enlarged lymph nodes FINE NEEDLE ASPIRATION - CORE BIOPSY Routine 03/09/2025 8:30 AM EST POCT , URINE Routine 03/09/2025 6:24 AM EST documented in this encounter Results * CT Guided Biopsy Retroperitoneal (03/09/2025 8:43 AM EST) Anatomical Region Laterality Modality Abdomen Computed Tomogra phy Impressions 03/09/2025 9:[address]-guided periaortic lymph node biopsy, as described above. PLAN: -Standard postprocedural monitoring while in recovery -Patient will follow-up with ordering provider for biopsy results CRITICAL RESULT: No. COMMUNICATION: Per this written report. Drafted by Elmira Lainez MD on 03/09/2025 9:34 AM Final report signed by Elmira Lainez MD on 03/09/2025 9:42 AM Narrative 03/09/2025 9:42 AM EST CLINICAL INDICATION: 44-year-old female with history of COPD, thyroid cancer s/p thyroidectomy, colon cancer s/p sigmoidectomy and adjuvant chemotherapy. CT abdomen/pelvis on 01/12/2020 and 02/13/2025 demonstrated retroperitoneal/periaortic adenopathy. Patient presents for image guided periaortic lymph node biopsy. TECHNIQUE: Isotope Technologist: Elmira Lainez M.D. Secondary Wind Turbine Machinist: Chapincito Goyal MS Nurse: Valentino Padilla Technologist: Kendall Sams Rad Dose (DLP): 538 mGy-cm Medications: IV conscious sedation with continuous physiologic monitoring provided by a qualified healthcare professional using Versed 2 mg IV and Fentanyl 100 mcg IV. 1% Lidocaine SQ. Antibiotics: None. Duration of Conscious Sedation: Time out: 0819 hours close out: 0842 hours Procedure: After discussion of risks and benefits, informed written consent was obtained. Appropriate time out was performed to confirm patient identity and planned procedure and side. Strict hand hygiene protocol was observed. All personnel in the room were attired in surgical hat and mask. The operators were in surgical hat, mask, sterile gloves, and sterile gowns. The site was prepped with 2% chlorhexidine for cutaneous antisepsis followed by sterile barrier draping. The patient was placed prone on the CT table and initial scanning carried out. The skin overlying the planned tract was prepped and draped, and local anesthetic administered. The periaortic lymph node was accessed under CT guidance with a 17-gauge coaxial needle and position confirmed. Via the coaxial needle 13 cores were taken with an 18-gauge biopsy device. Once sampling was felt sufficient the needle was removed as Gelfoam was instilled along the biopsy tract. Post scanning revealed no evidence of bleeding. A sterile dressing was applied to the puncture site. The patient tolerated the procedure well, and was transferred to the recovery in good condition. Specimens handed over to pathology team. COMPARISON: CT abdomen/pelvis 02/13/2025 FINDINGS: Preprocedure limited CT of the abdomen demonstrated multiple enlarged retroperitoneal/periaortic lymph nodes. Post procedure limited CT of the abdomen demonstrated expected postprocedural changes with no evidence of acute complication. COMPLICATION: No. Procedure Note Elmira Lainez MD - 03/09/2025 CLINICAL INDICATION: 44-year-old female with history of COPD, thyroid cancer s/p thyroidectomy,colon cancer s/p sigmoidectomy and adjuvant chemotherapy. CTabdomen/pelvis on 01/12/2020 and 02/13/2025 demonstratedretroperitoneal/periaortic adenopathy. Patient presents for image guidedperiaortic lymph node biopsy. TECHNIQUE: Isotope Technologist: Elmira Lainez M.D. Secondary Wind Turbine Machinist: Chapincito Goyal MS Nurse: Valentino Padilla Technologist: Kendall Sams Rad Dose (DLP): 538 mGy-cm Medications: IV conscious sedation with continuous physiologic monitoringprovided by a qualified healthcare professional using Versed 2 mg IV andFentanyl 100 mcg IV. 1% Lidocaine SQ. Antibiotics: None. Duration of Conscious Sedation: Time out: 0819 hours close out: 0842hours Procedure: After discussion of risks and benefits, informed written consent wasobtained. Appropriate time out was performed to confirm patient identityand planned procedure and side. Strict hand hygiene protocol was observed. All personnel in the room wereattired in surgical hat and mask. The operators were in surgical hat,mask, sterile gloves, and sterile gowns. The site was prepped with 2%chlorhexidine for cutaneous antisepsis followed by sterile barrierdraping. The patient was placed prone on the CT table and initial scanning carriedout. The skin overlying the planned tract was prepped and draped, andlocal anesthetic administered. The periaortic lymph node was accessedunder CT guidance with a 17- gauge coaxial needle and position confirmed.Via the coaxial needle 13 cores were taken with an 18-gauge biopsy device.Once sampling was felt sufficient the needle was removed as Gelfoam wasinstilled along the biopsy tract. Post scanning revealed no evidence ofbleeding. A sterile dressing was applied to the puncture site. The patienttolerated the procedure well, and was transferred to the recovery in goodcondition. Specimens handed over to pathology team. COMPARISON: CT abdomen/pelvis 02/13/2025 FINDINGS: Preprocedure limited CT of the abdomen demonstrated multiple enlargedretroperitoneal/periaortic lymph nodes. Post procedure limited CT of theabdomen demonstrated expected postprocedural changes with no evidence ofacute complication. COMPLICATION: No. IMPRESSION: Successful CT-guided periaortic lymph node biopsy, as described above. PLAN: -Standard postprocedural monitoring while in recovery -Patient will follow-up with ordering provider for biopsy results CRITICAL RESULT: No. COMMUNICATION: Per this written report. Drafted by Elmira Lainez MD on 03/09/2025 9:34 AM Final report signed by Elmira Lainez MD on 03/09/2025 9:42 AM Manuela Pedersen HSE COORDINATOR, DNP IMG CT PROCEDURES Yoanna l Result * Fine needle aspiration - Core Biopsy (03/09/2025 8:30 AM EST) Case Report Cytology Case: [id number] Authorizing Provider: Eloy Estrada MD Collected: 03/09/2025 0800 Ordering Location: [facility] Inter[facility] Received: 03/09/2025 0911 Radiology Pathologist: Gita Vale MD Specimen: Retroperitoneal Mass, Core Biopsy with Touch Preparation, RETROPERITONEAL MASS, CT GUIDED CORE BIOPSY WITH TOUCH PREPS 5 5:33 PM EST [facility] Final Diagnosis A. RETROPERITONEAL MASS, CT GUIDED CORE BIOPSY: - POSITIVE FOR MALIGNANCY, METASTATIC CARCINOMA CONSISTENT WITH COLON PRIMARY. 5 5:33 PM EST [facility] at 1733 EST Special and Immunohistochemical Stains IHC: A1-1 CK7 Negative A1-2 CK20 Patchy positive A1-3 SATB2 Positive All controls show appropriate reactivity. All immunohistochemis try, in situ hybridization, and histochemical tests were developed by and are performed at the [facility], [address] [place] [address]. All tests reported here, except those addressing [...] likelihood of false negativity on decalcified specimens. 5 5:33 PM EST [facility] Immediate Evaluation Core biopsy performed by: Dr. Lainez Number of sticks: 13 Touch Prep performed by: Dr. Vale / SP Immediate evaluation episode Touch Prep # 1-4: Lesional with abundant necrosis. Nine additional passes added directly to plasmalyte. The immediate evaluation in this case was performed via telecytology by the attending physician listed above. This service has been rendered in part by a resident. A pathologist has personally reviewed the slides/tissue and has rendered and is responsible for diagnosis for the diagnosis that appears on the report. 5 5:33 PM EST [facility] Clinical History colon cancer 5 5:33 PM EST [facility] Procedure Type CT 5 5:33 PM EST [facility] Size/Description of Lesion Retroperitoneal mass 5 5:33 PM EST [facility] Cancer History Yes 5 5:33 PM EST [facility] Comment:colon cancer Gross Description A. RETROPERITONEAL MASS, CT GUIDED CORE BIOPSY WITH TOUCH PREPS Multiple white donald cores of friable tissue, all measuring less than 0.1 cm in diameter and ranging from 0.01 cm to 0.5 cm in length, entirely submitted in biowrap and/or cassette. Received 4 diff quick touch prep slides. Specimen was placed in formalin at 8:57 am in cytology, and then taken to histology at 4:30 pm where it received an additional 3 hours of formalin fixation. Cold Time: 26m 5:33 PM EST [facility] Note: A resident was involved in the service. I attest I examined the relevant preparations for the specimens and confirmed the diagnosis or interpretation. 5:33 PM EST [facility] Clinical Information No Dx found. 5:33 PM EST [facility] Fine Needle Aspirate Retroperitoneal mass / Unknown Non-blood Collection / Unknown 03/09/2025 8:30 AM EST 03/09/2025 9:22 AM EST us Eloy Estrada MD LAB CYTOLOGY ORDERABLES Final Result [facility] [address] [place] [address] * POCT , URINE (03/09/2025 6:24 AM EST) POCT Test, Urine Negative Males and Non- Females: Negative 03/09/2025 6:31 AM EST [facility] [employer] Machinist ID Theresa Pastor 03/09/2025 6:31 AM EST [facility] Device ID [id number] 03/09/2025 6:31 AM EST [facility] Urine Urine specimen obtained by clean catch procedure / Unknown 03/09/2025 6:24 AM EST 03/09/2025 6:31 AM EST us Dallin Garrett DEICER TESTER POINT OF CARE TE ST DOCKED DEVICE UNSOLICITED RESULTS Final Result Performing Organization Address City/[facility]/ZIP Co de Phone Number [facility] [address] [place] [address] documented in this encounter Visit Diagnoses Diagnosis Localized enlarged lymph nodes documented in this encounter Administered Medications Inactive Administered Medications - up to 3 most recent administrations Medication Order MAR Action Action Date Dose Rate Site fentaNYL (Sublimaze) injection Intravenous, As needed, Starting on Fri03/09/25 at 0819, Until Fri03/09/25 at 0834, Routine, Intraprocedure Given 03/09/2025 8:34 AM EST 25 mcg Given 03/09/2025 8:26 AM EST 25 mcg Given 03/09/2025 8:19 AM EST 50 mcg heparin flush (porcine) 100 UNIT/ML injection 500 Units 500 Units, Intracatheter, As needed, Starting on Fri03/09/25 at 0928, Until Peg 03/10/25 at 0240, Routine, Recovery(Phase II-Outpatient)/On Unit(Inpatient), line care Given 03/09/2025 9:44 AM EST 500 Units lidocaine (Xylocaine) 1 % injection Intradermal, As needed, Starting on Fri03/09/25 at 0823, Until Fri03/09/25 at 0823, Routine, Intraprocedure Given 03/09/2025 8:23 AM EST 10 mL Back midazolam (Versed) injection Intravenous, As needed, Starting on Fri03/09/25 at 0819, Until Fri03/09/25 at 0826, Routine, Intraprocedure Given 03/09/2025 8:26 AM EST 1 mg Given 03/09/2025 8:19 AM EST 1 mg documented in this encounter Additional Health Concerns Assessment Noted Time PHQ-9 Depression Total Score: 0 06/22/19 1:53 PM EDT A fall risk assessment has been complete d for the patient 02/17/2025 10:13 AM EST A Body Mass Index follow-up plan has been documented for the patient 03/09/2025 9:06 AM EST documented as of this encounter Care Teams Washcoat Wiper Relationship Specialty Start Date End Date Sergey Oh MD PCP - General 11/13/21 Jean Mak MD [address] [id number] Surgeon Otolaryngology 11/21/21 Alice Chou, RN None None Registered Nurse 02/14/25 documented as of this encounter
--- OUTSIDE RECORDS SUMMARY | 2025-03-10 07:21 | XMS_ITS | Encounter Summary ---
Author Organization [facility] Address [address] [place] [address] Care Team Providers Care Battery Container Inspector Name Role Phone Sergey Oh MD Primary Care Provider [phone] Jean Mak MD Unavailable [phone] Alice Chou RN Unavailable Unavailable Reason for Referral * Imaging (Routine) - Closed Specialty Diagnoses / Procedures Referred By Dhruv kebede Referred To Contact Radiology Diagnoses History of colon cancer, stage II Procedures CT Chest w IV Contrast Franchesca Delacruz MD [address] [address] Phone: tel: fax: Referral ID Status Reason Start Date Expiration Date Visits Re quested Visits Authorized [id number] Closed 12/23/2024 06/24/2026 1 1 * Imaging (Routine) - Closed Specialty Diagnoses / Procedures Referred By Dhruv kebede Referred To Contact Radiology Diagnoses History of colon cancer, stage II Procedures CT Abdomen Pelvis w IV Contrast Franchesca Delacruz MD [address] [address] Phone: tel: fax: Referral ID Status Reason Start Date Expiration Date Visits Re quested Visits Authorized [id number] Closed 12/23/2024 06/24/2026 1 1 Reason for Visit * Imaging (Routine) - Closed Specialty Diagnoses / Procedures Referred By Contac t Referred To Contact Radiology Diagnoses History of colon cancer, stage II [address] Abdomen Pelvis w IV Contrast Franchesca Delacruz MD [address] [facility] [address] [place] [address] Phone: tel: fax: Referral ID Status Reason Start Date Expiration Date Visits Re quested Visits Authorized [id number] Closed 12/23/2024 06/24/2026 1 1 Encounter Details Date Type Department Care Team (Latest Contact Info) Description 03/10/2025 7:21 AM EST - 03/10/2025 11:59 PM EST Hospital Encounter [facility] [address] [place] [address] Kassi Villarreal RN [facility] None History of colon cancer, stage II Discharge [...] drink 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 t 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 09/19/2023 cyclobenzaprine (Flexeril) 10 MG tablet Take 1 tablet by mouth 3 times a day as needed for muscle spasms. dexamethasone (Decadron) 4 MG tabletIndication s:Malignant neoplasm of sigmoid colon (CMS/HCC) Take 2 tablets by mouth daily. Take for two days starting the day after treatment 48 tablet 03/11/2025 ergocalciferol 1.25 MG (80369 UT) capsule TAKE ONE (1) CAPSULE BY MOUTH ONE (1) TIME PER WEEK. 12 capsule 3 12/22/2024 HYDROcodone-acet aminophen ([place]) 10-325 MG tablet Take 1 tablet by mouth every 6 hours as needed for severe pain. 15 tablet 03/10/2025 HYDROcodone-acet aminophen ([place]) 7.5-325 MG tablet ipratropium-albu terol (Duo-Neb) 0.5-2.5 mg/3 mL nebulizer solution Take 3 mL by nebulization 4 times a day as needed. 06/18/2024 levothyroxine (Synthroid, Levoxyl) 125 MCG tablet Take 1 tablet by mouth daily. 90 tablet 1 01/02/2025 loperamide (Imodium A-D) 2 MG tabletIndication s:Malignant neoplasm of sigmoid colon (CMS/HCC) 2 mg by mouth every 2 hours as needed for diarrhea; Not to exceed 16 mg in 24 hours 30 tablet 5 03/11/2025 naloxone (Narcan) 4 mg/0.1 mL nasal spray 1. Give 1 spray in nostril for no/slow breathing or cannot wake after opioid use 2. Call 911 3. Repeat in other nostril if symptoms continue 1 each 02/14/2025 polyethylene glycol (Miralax) 17 GM/SCOOP powder Take 17 g by mouth 2 times a day. prochlorperazine (Compazine) 10 MG tabletIndication s:Malignant neoplasm of sigmoid colon (CMS/HCC) Take 1 tablet by mouth every 6 hours as needed for nausea or vomiting. 30 tablet 5 03/11/2025 tenofovir disoproxil fumarate (Viread) 300 MG tabletIndication s:Chronic viral hepatitis B without delta agent and without coma (CMS/HCC) Take 1 tablet (300 mg) by mouth daily. 30 tablet 11 06/21/2024 tiotropium-oloda terol (Stiolto Respimat) 2.5-2.5 MCG/ACT aerosol solution inhaler Inhale 2 Inhalations daily. documented as of this encounter Miscellaneous Notes * Antonio Justice - 03/10/2025 7:28 AM EST Images from the original note [...] Info) Description 03/30/2025 8:30 AM EST Appointment [facility] In[facility] [address] [place] [address] 2025 9:00 AM EST Appointment [facility] [address] [place] [address] 04/14/2025 7:45 AM EST Clinical Support [facility] [address] [place] [address] 04/14/2025 8:00 AM EST Office Visit [facility] Multidisciplinary Oncology Clinic [address] [place] [address] Edison Skaggs MD [address] [place] [address] 04/14/2025 9:30 AM EST Appointment [facility] [address] [place] [address] 04/16/2025 10:30 AM EST Appointment [facility] [address] [place] [address] 04/28/2025 8:30 AM EST Appointment [facility] [address] [place] [address] 04/30/2025 10:00 AM EST Appointment [facility] [address] [place] [address] 06/29/2025 12:30 PM EDT Clinical Support [facility] [address] [address] 06/29/2025 1:00 PM EDT Office Visit [facility] [address] [address] Danny Coon MD [address] [address] documented as of this encounter Procedures Procedure Name Priority Date/Time Associated Diagnosis Comments CT ABDOMEN PELVIS W IV CONTRAST Routine 03/10/2025 8:19 AM EST History of colon cancer, stage II CT CHEST W IV CONTRAST Routine 03/10/2025 8:19 AM EST History of colon cancer, stage II documented in this encounter Results * CT Chest w IV Contrast (03/10/2025 8:19 AM EST) Anatomical Region Laterality Modality Chest Computed Tomogra phy Impressions 03/10/2025 11:04 AM EST Chest: Stable lung micronodules. Attention on follow-up is recommended Abdomen/Pelvis: Redemonstration of retrocrural and retroperitoneal lymphadenopathy, similar in volume, extent and distribution. . CRITICAL RESULT: No. COMMUNICATION: Per this written report. By electronically signing this report, I, the attending physician, attest that I have personally reviewed the images/data for the above examination(s) and agree with the final edited report. Drafted by Gilberto Klein MD on 03/10/2025 8:58 AM Final report signed by Porter Ha MD on 03/10/2025 11:04 AM Narrative 03/10/2025 11:04 AM EST CLINICAL INDICATION: Abdominal pain, acute, nonlocalized TECHNIQUE: Multiple axial CT images were obtained from thoracic inlet through pubic symphysis following administration of IV contrast, Omnipaque 300, 100 mL. Reformatted images in the coronal and sagittal planes were generated from the axial data set to facilitate diagnostic accuracy. Total DLP (Dose-Length Product): 349.21 mGy.cm (accession [id number]), 349.21 mGy.cm (accession [id number]). Please note: The reported value represents the total of one or more individual components during the CT acquisition on this date and at this time, and as such, the same value may appear in more than one CT report depending on the interpreting/reporting physicians. COMPARISON: CT chest/ abdomen and pelvis January 11, 2025, CT abdomen and pelvis February 13, 2025. FINDINGS: Chest: Lymph Nodes and Mediastinum: Stable right paratracheal lymph node measuring 10 mm (series 2 image 153). Stable right hilar lymph node measuring 8 mm (series 2 image 169). No mediastinal mass lesions. Status post total thyroidectomy. Cardiovascular: The heart is normal in caliber. No pericardial effusion. Thoracic great vessels are patent. Right Port-A-Cath terminates in the superior vena cava in unchanged position from prior. Lungs and Pleura: The central airways patent. Redemonstration of emphysematous most notable in the upper lobes. Multiple bilateral micro-nodules, are grossly stable. For example within the left lower lobe there is a subcentimeter nodule (series 4 image 74). No pleural effusions or suspicious thickening. Musculoskeletal and Body Wall: No clearly aggressive bone lesions. Abdomen/Pelvis: Liver, Gallbladder, Biliary Tract: Unchanged contour lobulation along the surface of the right hemiliver secondary to prior wedge resection. No focal suspicious liver lesions. No intra-axial hepatic biliary ductal dilatation. Prior cholecystectomy. Spleen: Unremarkable spleen with multiple granulomas. Pancreas: The pancreas is unremarkable. Adrenal Glands: The adrenals are morphologically unremarkable. Kidneys: The kidneys the liver enhance homogenously with no suspicious lesions. Small left renal cyst. No hydronephrosis. Lymph Nodes: A 1.9 cm left para-aortic lymph node (series 3 image 86) is grossly stable in size. A further 2.5 x 1.2 cm retrocaval lymph node (series 3 image 84) has increased in size, previously 1.7 x 0.8 cm. A 1.9 cm lymph node within the left para-aortic location (series 3 image 113) is grossly stable. Gas noted along the left para-aortic region consistent with recent biopsy. Lower thoracic aorta/retrocrural lymphadenopathy is again noted, similar in bulk.. Vasculature: The aortoiliac vasculature is normal in caliber and patent throughout demonstrating moderate atherosclerotic changes. GI Tract/Mesentery/Peritoneum: The large and small bowel appear normal in caliber. Sigmoid anastomosis is noted. No evidence of inflammatory change. No suspicious peritoneal/mesenteric findings. Pelvic Viscera: Unremarkable. No suspicious pelvic mass lesions. Free Fluid: No ascites. Musculoskeletal and Body Wall: No clearly aggressive bone lesions. Fat- containing ventral abdominal wall hernia is again noted. Procedure Note Porter Ha MD - 03/10/2025 CLINICAL INDICATION: Abdominal pain, acute, nonlocalized TECHNIQUE: Multiple axial CT images were obtained from thoracic inlet through pubicsymphysis following administration of IV contrast, Omnipaque 300, 100 mL.Reformatted images in the coronal and sagittal planes were generated fromthe axial data set to facilitate diagnostic accuracy. Total DLP (Dose-Length Product): 349.21 mGy.cm (accession [id number]),349.21 mGy.cm (accession [id number]). Please note: The reported valuerepresents the total of one or more individual components during the CTacquisition on this date and at this time, and as such, the same value mayappear in more than one CT report depending on the interpreting/reportingphysicians. COMPARISON: CT chest/ abdomen and pelvis January 11, 2025, CT abdomen and pelvisFebruary 13, 2025. FINDINGS: Chest: Lymph Nodes and Mediastinum: Stable right paratracheal lymph nodemeasuring 10 mm (series 2 image 153). Stable right hilar lymph nodemeasuring 8 mm (series 2 image 169). No mediastinal mass lesions. Statuspost total thyroidectomy. Cardiovascular: The heart is normal in caliber. No pericardial effusion.Thoracic great vessels are patent. Right Port-A-Cath terminates in thesuperior vena cava in unchanged position from prior. Lungs and Pleura: The central airways patent. Redemonstration ofemphysematous most notable in the upper lobes. Multiple bilateralmicro-nodules, are grossly stable. For example within the left lower lobethere is a subcentimeter nodule (series 4 image 74). No pleural effusionsor suspicious thickening. Musculoskeletal and Body Wall: No clearly aggressive bone lesions. Abdomen/Pelvis: Liver, Gallbladder, Biliary Tract: Unchanged contour lobulation along thesurface of the right hemiliver secondary to prior wedge resection. Nofocal suspicious liver lesions. No intra-axial hepatic biliary ductaldilatation. Prior cholecystectomy. Spleen: Unremarkable spleen with multiple granulomas. Pancreas: The pancreas is unremarkable. Adrenal Glands: The adrenals are morphologically unremarkable. Kidneys: The kidneys the liver enhance homogenously with no suspiciouslesions. Small left renal cyst. No hydronephrosis. Lymph Nodes: A 1.9 cm left para-aortic lymph node (series 3 image 86) isgrossly stable in size. A further 2.5 x 1.2 cm retrocaval lymph node(series 3 image 84) has increased in size, previously 1.7 x 0.8 cm. A 1.9cm lymph node within the left para-aortic location (series 3 image 113) isgrossly stable. Gas noted along the left para-aortic region consistentwith recent biopsy. Lower thoracic aorta/retrocrural lymphadenopathy isagain noted, similar in bulk.. Vasculature: The aortoiliac vasculature is normal in caliber and patentthroughout demonstrating moderate atherosclerotic changes. GI Tract/Mesentery/Peritoneum: The large and small bowel appear normal incaliber. Sigmoid anastomosis is noted. No evidence of inflammatory change.No suspicious peritoneal/mesenteric findings. Pelvic Viscera: Unremarkable. No suspicious pelvic mass lesions. Free Fluid: No ascites. Musculoskeletal and Body Wall: No clearly aggressive bone lesions.Fat-containing ventral abdominal wall hernia is again noted. IMPRESSION: Chest: Stable lung micronodules. Attention on follow-up is recommended Abdomen/Pelvis: Redemonstration of retrocrural and retroperitoneallymphadenopathy, similar in volume, extent and distribution. . CRITICAL RESULT: No. COMMUNICATION: Per this written report. By electronically signing this report, I, the attending physician, attestthat I have personally reviewed the images/data for the aboveexamination(s) and agree with the final edited report. Drafted by Gilberto Klein MD on 03/10/2025 8:58 AM Final report signed by Porter Ha MD on 03/10/2025 11:04 AM Franchesca Delacruz MD IMG CT PROCEDURES Final Result * CT Abdomen Pelvis w IV Contrast (03/10/2025 8:19 AM EST) Anatomical Region Laterality Modality Abdomen, Pelvis Computed Tomogra phy Impressions 03/10/2025 11:04 AM EST Chest: Stable lung micronodules. Attention on follow-up is recommended Abdomen/Pelvis: Redemonstration of retrocrural and retroperitoneal lymphadenopathy, similar in volume, extent and distribution. . CRITICAL RESULT: No. COMMUNICATION: Per this written report. By electronically signing this report, I, the attending physician, attest that I have personally reviewed the images/data for the above examination(s) and agree with the final edited report. Drafted by Gilberto Klein MD on 03/10/2025 8:58 AM Final report signed by Porter Ha MD on 03/10/2025 11:04 AM Narrative 03/10/2025 11:04 AM EST CLINICAL INDICATION: Abdominal pain, acute, nonlocalized TECHNIQUE: Multiple axial CT images were obtained from thoracic inlet through pubic symphysis following administration of IV contrast, Omnipaque 300, 100 mL. Reformatted images in the coronal and sagittal planes were generated from the axial data set to facilitate diagnostic accuracy. Total DLP (Dose-Length Product): 349.21 mGy.cm (accession [id number]), 349.21 mGy.cm (accession [id number]). Please note: The reported value represents the total of one or more individual components during the CT acquisition on this date and at this time, and as such, the same value may appear in more than one CT report depending on the interpreting/reporting physicians. COMPARISON: CT chest/ abdomen and pelvis January 11, 2025, CT abdomen and pelvis February 13, 2025. FINDINGS: Chest: Lymph Nodes and Mediastinum: Stable right paratracheal lymph node measuring 10 mm (series 2 image 153). Stable right hilar lymph node measuring 8 mm (series 2 image 169). No mediastinal mass lesions. Status post total thyroidectomy. Cardiovascular: The heart is normal in caliber. No pericardial effusion. Thoracic great vessels are patent. Right Port-A-Cath terminates in the superior vena cava in unchanged position from prior. Lungs and Pleura: The central airways patent. Redemonstration of emphysematous most notable in the upper lobes. Multiple bilateral micro-nodules, are grossly stable. For example within the left lower lobe there is a subcentimeter nodule (series 4 image 74). No pleural effusions or suspicious thickening. Musculoskeletal and Body Wall: No clearly aggressive bone lesions. Abdomen/Pelvis: Liver, Gallbladder, Biliary Tract: Unchanged contour lobulation along the surface of the right hemiliver secondary to prior wedge resection. No focal suspicious liver lesions. No intra-axial hepatic biliary ductal dilatation. Prior cholecystectomy. Spleen: Unremarkable spleen with multiple granulomas. Pancreas: The pancreas is unremarkable. Adrenal Glands: The adrenals are morphologically unremarkable. Kidneys: The kidneys the liver enhance homogenously with no suspicious lesions. Small left renal cyst. No hydronephrosis. Lymph Nodes: A 1.9 cm left para-aortic lymph node (series 3 image 86) is grossly stable in size. A further 2.5 x 1.2 cm retrocaval lymph node (series 3 image 84) has increased in size, previously 1.7 x 0.8 cm. A 1.9 cm lymph node within the left para-aortic location (series 3 image 113) is grossly stable. Gas noted along the left para-aortic region consistent with recent biopsy. Lower thoracic aorta/retrocrural lymphadenopathy is again noted, similar in bulk.. Vasculature: The aortoiliac vasculature is normal in caliber and patent throughout demonstrating moderate atherosclerotic changes. GI Tract/Mesentery/Peritoneum: The large and small bowel appear normal in caliber. Sigmoid anastomosis is noted. No evidence of inflammatory change. No suspicious peritoneal/mesenteric findings. Pelvic Viscera: Unremarkable. No suspicious pelvic mass lesions. Free Fluid: No ascites. Musculoskeletal and Body Wall: No clearly aggressive bone lesions. Fat- containing ventral abdominal wall hernia is again noted. Procedure Note Porter Ha MD - 03/10/2025 CLINICAL INDICATION: Abdominal pain, acute, nonlocalized TECHNIQUE: Multiple axial CT images were obtained from thoracic inlet through pubicsymphysis following administration of IV contrast, Omnipaque 300, 100 mL.Reformatted images in the coronal and sagittal planes were generated fromthe axial data set to facilitate diagnostic accuracy. Total DLP (Dose-Length Product): 349.21 mGy.cm (accession [id number]),349.21 mGy.cm (accession [id number]). Please note: The reported valuerepresents the total of one or more individual components during the CTacquisition on this date and at this time, and as such, the same value mayappear in more than one CT report depending on the interpreting/reportingphysicians. COMPARISON: CT chest/ abdomen and pelvis January 11, 2025, CT abdomen and pelvisNov2024. FINDINGS: Chest: Lymph Nodes and Mediastinum: Stable right paratracheal lymph nodemeasuring 10 mm (series 2 image 153). Stable right hilar lymph nodemeasuring 8 mm (series 2 image 169). No mediastinal mass lesions. Statuspost total thyroidectomy. Cardiovascular: The heart is normal in caliber. No pericardial effusion.Thoracic great vessels are patent. Right Port-A-Cath terminates in thesuperior vena cava in unchanged position from prior. Lungs and Pleura: The central airways patent. Redemonstration ofemphysematous most notable in the upper lobes. Multiple bilateralmicro-nodules, are grossly stable. For example within the left lower lobethere is a subcentimeter nodule (series 4 image 74). No pleural effusionsor suspicious thickening. Musculoskeletal and Body Wall: No clearly aggressive bone lesions. Abdomen/Pelvis: Liver, Gallbladder, Biliary Tract: Unchanged contour lobulation along thesurface of the right hemiliver secondary to prior wedge resection. Nofocal suspicious liver lesions. No intra-axial hepatic biliary ductaldilatation. Prior cholecystectomy. Spleen: Unremarkable spleen with multiple granulomas. Pancreas: The pancreas is unremarkable. Adrenal Glands: The adrenals are morphologically unremarkable. Kidneys: The kidneys the liver enhance homogenously with no suspiciouslesions. Small left renal cyst. No hydronephrosis. Lymph Nodes: A 1.9 cm left para-aortic lymph node (series 3 image 86) isgrossly stable in size. A further 2.5 x 1.2 cm retrocaval lymph node(series 3 image 84) has increased in size, previously 1.7 x 0.8 cm. A 1.9cm lymph node within the left para-aortic location (series 3 image 113) isgrossly stable. Gas noted along the left para-aortic region consistentwith recent biopsy. Lower thoracic aorta/retrocrural lymphadenopathy isagain noted, similar in bulk.. Vasculature: The aortoiliac vasculature is normal in caliber and patentthroughout demonstrating moderate atherosclerotic changes. GI Tract/Mesentery/Peritoneum: The large and small bowel appear normal incaliber. Sigmoid anastomosis is noted. No evidence of inflammatory change.No suspicious peritoneal/mesenteric findings. Pelvic Viscera: Unremarkable. No suspicious pelvic mass lesions. Free Fluid: No ascites. Musculoskeletal and Body Wall: No clearly aggressive bone lesions.Fat-containing ventral abdominal wall hernia is again noted. IMPRESSION: Chest: Stable lung micronodules. Attention on follow-up is recommended Abdomen/Pelvis: Redemonstration of retrocrural and retroperitoneallymphadenopathy, similar in volume, extent and distribution. . CRITICAL RESULT: No. COMMUNICATION: Per this written report. By electronically signing this report, I, the attending physician, attestthat I have personally reviewed the images/data for the aboveexamination(s) and agree with the final edited report. Drafted by Gilberto Klein MD on 03/10/2025 8:58 AM Final report signed by Porter Ha MD on 03/10/2025 11:04 AM Franchesca Delacruz MD IMG CT PROCEDURES Final Result documented in [...] in imaging, 1 dose, Starting on Peg 03/10/25 at 0727, Until Peg 03/10/25 at 0810, Routine, Imaging Protocol Orders Given 03/10/2025 8:10 AM EST 100 mL iohexol (OMNIPaque) 9 MG/ML oral contrast 500 mL 500 mL, Oral, Once in imaging, 1 dose, Starting on Peg 03/10/25 at 0727, Until Peg 03/10/25 at 0738, Routine, Imaging Protocol Orders Given 03/10/2025 7:38 AM EST 500 mL documented in this encounter Additional Health Concerns Assessment Noted Time PHQ-9 Depression Total Score: 0 06/22/19 1:53 PM EDT A fall risk assessment has been complete d for the patient 03/10/2025 10:37 AM EST A Body Mass Index follow-up plan has been documented for the patient 03/09/2025 9:06 AM EST documented as of this encounter Care Teams Battery Container Inspector Relationship Specialty Start Date End Date Sergey Oh MD PCP - General 11/13/21 Jean Mak MD [address] [place] [address] [address] Surgeon Otolaryngology 11/21/21 Alice Chou, RN None None Registered Nurse 02/14/25 documented as of this encounter
--- OUTSIDE RECORDS SUMMARY | 2025-03-10 10:50 | XMS_ITS | Encounter Summary ---
Author Organization Healthcare Address [address] [place] [address] Care Team Providers Care Comedian Name Role Phone Sergey Oh MD Primary Care Provider [phone] Jean Mak MD Unavailable [phone] Alice Chou RN Unavailable Unavailable Encounter Details Date Type Department Care Team (Latest Contact Info) Description 03/10/2025 10:50 AM EST Clinical Support [facility] Mult[facility] On[facility] [address] [place] [address] Nannette Medina, RN None None Colorectal cancer (CMS/HCC) Social History Tobacco Use Types Packs/Day [...] drink first t mono in the morning ([employer]) to steady your nerves or to get [...] Elena Mackay documented as of this encounter Plan of Treatment Upcoming Encounters Date Type Department Care Team (Late st Contact Info) Description 03/30/2025 8:30 AM EST Appointment [facility] [address] [place] [address] 2025 9:00 AM EST Appointment [facility] [address] [place] [address] 04/14/2025 7:45 AM EST Clinical Support [facility] [address] [place] [address] 04/14/2025 8:00 AM EST Office Visit [facility] [address] [place] [address] Edison Skaggs MD [address] [place] [address] 04/14/2025 9:30 AM EST Appointment [facility] [address] [place] [address] 04/16/2025 10:30 AM EST Appointment [facility] [address] [place] [address] 04/28/2025 8:30 AM EST Appointment [facility] [address] [place] [address] 04/30/2025 10:00 AM EST Appointment [facility] [address] [place] [address] 06/29/2025 12:30 PM EDT Clinical Support [facility] [address] [facility] [place] [address] 06/29/2025 1:00 PM EDT Office Visit [facility] [address] [address] Danny Coon MD [address] [place] [phone] documented as of this encounter Procedures Procedure Name Priority Date/Time Associated Diagnosis Comments URINALYSIS WITH REFLEX MICROSCOPIC Routine 03/10/2025 12:10 PM EST Colorectal cancer (CMS/HCC) CBC WITH AUTO DIFFERENTIAL Routine 03/10/2025 12:10 PM EST Colorectal cancer (CMS/HCC) COMPREHENSIVE METABOLIC PANEL, PLASMA Routine 03/10/2025 12:10 PM EST Colorectal cancer (CMS/HCC) documented in this encounter Results * (ABNORMAL) Urinalysis with reflex microscopic (Culture NOT Included) (03/10/2025 12:10 PM EST) [facility] Color, Urine Yellow LAB URINALYSIS - AUTOMATED METHOD 03/10/2025 12:50 PM EST [facility] Clarity, Urine Clear LAB URINALYSIS - AUTOMATED METHOD 03/10/2025 12:50 PM EST [facility] Spec [place], Urine >1.030(H) 1.005 - 1.030 LAB URINALYSIS - AUTOMATED METHOD 03/10/2025 12:50 PM EST [facility] pH, Urine 7.0 5.0 - 8.0 LAB URINALYSIS - AUTOMATED METHOD 03/10/2025 12:50 PM EST [facility] Protein, Urine Negative Negative mg/dL LAB URINALYSIS - AUTOMATED METHOD 03/10/2025 12:50 PM EST [facility] Glucose, Urine Negative Negative mg/dL LAB URINALYSIS - AUTOMATED METHOD 03/10/2025 12:50 PM EST [facility] Ketones, Urine Negative Negative mg/dL LAB URINALYSIS - AUTOMATED METHOD 03/10/2025 12:50 PM EST [facility] Blood, Urine Negative Negative LAB URINALYSIS - AUTOMATED METHOD 03/10/2025 12:50 PM EST [facility] Bilirubin, Urine Negative Negative LAB URINALYSIS - AUTOMATED METHOD 03/10/2025 12:50 PM EST [facility] Urobilinogen, Urine 0.2 0.2 to 1.0 mg/dL LAB URINALYSIS - AUTOMATED METHOD 03/10/2025 12:50 PM EST [facility] Leukocytes, Urine Negative Negative LAB URINALYSIS - AUTOMATED METHOD 03/10/2025 12:50 PM EST [facility] Nitrite, Urine Negative Negative LAB URINALYSIS - AUTOMATED METHOD 03/10/2025 12:50 PM EST [facility] Urine Urine specimen obtained by clean catch procedure / Unknown Non-blood Collection / Unknown 03/10/2025 12:10 PM EST 03/10/2025 12:41 PM EST us Caroline Means MD LAB URINE ORDERABLES Final Resul t [facility] [address] [place] [address] * (ABNORMAL) Comprehensive metabolic panel (03/10/2025 12:10 PM EST) Glucose, Plasma 86 74 - 99 mg/dL 03/10/2025 1:17 PM [facility] BUN, Plasma 12 7 - 21 mg/dL 03/10/2025 1:17 PM [facility] Creatinine, Plasma 0.67 0.60 - 1.10 mg/dL 03/10/2025 1:17 PM [facility] BUN/Creatinine Ratio 18 03/10/2025 1:17 PM [facility] Sodium, Plasma 139 136 - 145 mmol/L 03/10/2025 1:17 PM [facility] Potassium, Plasma 3.7 3.6 - 4.9 mmol/L 03/10/2025 1:17 PM [facility] Chloride, Plasma 100 97 - 107 mmol/L 03/10/2025 1:17 PM [facility] CO2, Plasma 27 22 - 29 mmol/L 03/10/2025 1:17 PM [facility] Anion Gap 12 6 - 16 mmol/L 03/10/2025 1:17 PM [facility] Total Calcium, Plasma 8.8(L) 8.9 - 10.2 mg/dL 03/10/2025 1:17 PM [facility] Total Protein 7.1 6.3 - 7.9 g/dL 03/10/2025 1:17 PM [facility] Albumin, Plasma 3.7 3.5 - 5.2 g/dL 03/10/2025 1:17 PM [facility] AST, Plasma 26 10 - 35 U/L 03/10/2025 1:17 PM [facility] Comment:Hemolyzed, result ma y be falsely increased. ALT, Plasma 18 10 - 35 U/L 03/10/2025 1:17 PM [facility] Alkaline Phosphatase, Plasma 133(H) 35 - 104 U/L 03/10/2025 1:17 PM [facility] Total Bilirubin, Plasma 0.2 0.2 - 1.1 mg/dL 03/10/2025 1:17 PM [facility] eGFRcr 109.3 mL/min/1.7 3m*2 03/10/2025 1:17 PM [facility] Comment:Reported eGFRcr in m L/min/1.73m2 is based the CKD-EPI 2020 equation that does not use a race coefficient. Blood Blood sample taken from central line / Unknown (Port) Long-term Catheter / Unknown 03/10/2025 12:10 PM EST 03/10/2025 12:45 PM EST us Caroline Means MD LAB BLOOD ORDERABLES Final Resul t [facility] [address] [place] [address] * (ABNORMAL) CBC and differential (03/10/2025 12:10 PM EST) WBC Count 8.30 3.70 - 10.30 10*3/uL LAB HEMATOLOGY METHOD 03/10/2025 12:35 PM EST [facility] RBC Count 4.15 3.90 - 5.20 10*6/uL LAB HEMATOLOGY METHOD 03/10/2025 12:35 PM EST [facility] HGB 11.6 11.2 - 15.7 g/dL LAB HEMATOLOGY METHOD 03/10/2025 12:35 PM EST [facility] HCT 36.1 34.0 - 45.0 % LAB HEMATOLOGY METHOD 03/10/2025 12:35 PM EST [facility] Platelet Count 274 155 - 369 10*3/uL LAB HEMATOLOGY METHOD 03/10/2025 12:35 PM EST [facility] MCV 87 79 - 98 fL LAB HEMATOLOGY METHOD 03/10/2025 12:35 PM EST [facility] MCH 28.0 26.0 - 32.0 pg LAB HEMATOLOGY METHOD 03/10/2025 12:35 PM EST [facility] MCHC 32.1 30.7 - 35.5 g/dL LAB HEMATOLOGY METHOD 03/10/2025 12:35 PM EST [facility] RDW 15.5(H) 11.5 - 14.5 % LAB HEMATOLOGY METHOD 03/10/2025 12:35 PM EST [facility] MPV 8.9 8.8 - 12.5 fL LAB HEMATOLOGY METHOD 03/10/2025 12:35 PM EST [facility] nRBC 0.0 <=0.0 per 100 WBCs LAB HEMATOLOGY METHOD 03/10/2025 12:35 PM EST [facility] Differential Type Automated LAB HEMATOLOGY METHOD 03/10/2025 12:35 PM EST [facility] Neutrophils % 52 % LAB HEMATOLOGY METHOD 03/10/2025 12:35 PM EST [facility] Lymphocytes % 34 % LAB HEMATOLOGY METHOD 03/10/2025 12:35 PM EST [facility] Monocytes % 8 % LAB HEMATOLOGY METHOD 03/10/2025 12:35 PM EST [facility] Eosinophils % 5 % LAB HEMATOLOGY METHOD 03/10/2025 12:35 PM EST [facility] Basophils % 1 % LAB HEMATOLOGY METHOD 03/10/2025 12:35 PM EST [facility] Immature Granulocytes % 0 % LAB HEMATOLOGY METHOD 03/10/2025 12:35 PM EST [facility] Neutrophils Absolute 4.31 1.60 - 6.10 10*3/uL LAB HEMATOLOGY METHOD 03/10/2025 12:35 PM EST [facility] Lymphocytes Absolute 2.81 1.20 - 3.90 10*3/uL LAB HEMATOLOGY METHOD 03/10/2025 12:35 PM EST [facility] Monocytes Absolute 0.66 0.30 - 0.90 10*3/uL LAB HEMATOLOGY METHOD 03/10/2025 12:35 PM EST [facility] Eosinophils Absolute 0.44 0.00 - 0.50 10*3/uL LAB HEMATOLOGY METHOD 03/10/2025 12:35 PM EST [facility] Basophils Absolute 0.05 0.00 - 0.10 10*3/uL LAB HEMATOLOGY METHOD 03/10/2025 12:35 PM EST [facility] Immature Granulocytes Absolute 0.03 0.00 - 0.06 10*3/uL LAB HEMATOLOGY METHOD 03/10/2025 12:35 PM EST [facility] Blood Blood sample taken from central line / Unknown (Port) Long-term Catheter / Unknown 03/10/2025 12:10 PM EST 03/10/2025 12:32 PM EST Narrative [facility] - 03/10/2025 12:35 PM EST Therapeutic decision making should be based on absolute values, rather than percentages. us Caroline Means MD LAB BLOOD ORDERABLES Final Resul t [facility] [address] [place] [id number] documented in this encounter Visit Diagnoses Diagnosis Colorectal cancer (CMS/HCC) Malignant neoplasm of colon, unspecified site documented in this encounter Additional Health Concerns Assessment Noted Time PHQ-9 Depression Total Score: 0 06/22/19 25 1:53 PM EDT A fall risk assessment has been complete d for the patient 03/10/2025 10:37 AM EST A Body Mass Index follow-up plan has been documented for the patient 03/09/2025 9:06 AM EST documented as of this encounter Care Teams Comedian Relationship Specialty Start Date End Date Sergey Oh MD PCP - General 11/13/21 Jean Mak MD [address] [facility] [address] [address] Surgeon Otolaryngology 11/21/21 Alice Chou RN None None Registered Nurse 02/14/25 documented as of this encounter
--- OUTSIDE RECORDS SUMMARY | 2025-03-10 11:00 | XMS_ITS | Encounter Summary ---
Author Organization [facility] Address [address] [id number] Care Team Providers Care Flare Breaker Name Role Phone Sergey Oh MD Primary Care Provider [phone] Jean Mak MD Unavailable [phone] Alice Chou RN Unavailable Unavailable Reason for Referral * Consultation (Routine) - Authorized Specialty Diagnoses / Procedures Referred By Dhruv kebede Referred To Contact Medical Oncology Diagnoses Colorectal cancer (CMS/HCC) Caroline Means MD [facility] Emily Silveira [address] [address] Phone: tel: fax: [facility] [address] [facility] [address] [place] [address] Phone: tel: Referral ID Status Reason Start Date Expiration Date Visits Requested Visits Authorized [id number] Authorized Specialty Services Required 5 09/09/2026 1 1 * Episode Based Medications (Routine) - Pending Review Specialty Diagnoses / Procedures Referred By Contac t Referred To Contact Diagnoses Colorectal cancer (CMS/HCC) Procedures Fluorouracil (5-FU) Disconnect Caroline Means MD [address] Whitney Hendrickson [address] [address] Phone: tel: fax: Referral ID Status Reason Start Date Expiration Date V isits Requested Visits Authorized [id number] Pending Review 03/10/2025 09/09/2026 50 50 Encounter Details Date Type Department Care Team (Latest Contact Info) Description 03/10/2025 11:00 AM EST Office Visit [facility] Multidisciplinary Oncology Clinic [address] [place] [phone] Edison Skaggs MD [address] [place] [phone] Colorectal cancer (CMS/HCC) (Primary Dx); Malignant neoplasm of sigmoid colon (CMS/HCC) Social [...] drink first t mono in the morning (EYE-CAT SCAN TECHNOLOGIST) to steady your nerves or to get [...] Sign Reading Time Taken Comments Blood Pressure 115/78 03/10/2025 10:35 AM EST Pulse 96 03/10/2025 10:35 AM EST Temperature 37 C (98.6 F) 03/10/2025 10:35 AM EST Respiratory Rate 16 03/10/2025 10:35 AM EST Oxygen Saturation 92% 03/10/2025 10:35 AM EST Inhaled Oxygen Concentration - - Weight 67.8 kg (149 lb 7.6 oz) 03/10/2025 10:35 AM EST Height 157.5 cm (5' 2 ) 03/10/2025 10:35 AM EST Body Mass Index 27.34 03/10/2025 10:35 AM EST documented in this encounter Functional Status * Over the past 2 weeks, how often have you been bothered by any of the following problems? Question Answer Date of Assessment Author Little interest or pleasure in doing things Not at all 03/10/2025 10:37 AM EST Luz Elena Mckeon Feeling down, depressed, or hopeless Not at all 03/10/2025 10:37 AM EST Luz Elena Mckeon Patient Health Questionnaire -2 Score 0 03/10/2025 10:37 AM EST Luz Elena Mckeon * Question Answer Date of Assessment Author Thoughts that you would be b anel off or hurting yourself in some way Not at all 03/10/2025 10:37 AM EST Luz Elena Mckeon documented as of this encounter Miscellaneous Notes * Clinician Note - Nannette Medina, RN - 03/10/2025 11:00 AM EST Port labs drawn. Initially unable to obtain blood return. Patient reported right pain in th which she attributes to raising arm earlier in day with CT Scan. Absence of swelling of shoulder, neck or arm. Reported to Dr Skaggs. * Progress Notes - Edison Skaggs MD - 03/10/2025 11:[address] General Medical Oncology Clinic [...] referring provider defined for this encounter. Subjective Patient was evaluated in the clinic today. 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 Currently develop retroperitoneal lymph nodes, biopsy has been done but ct DNA is positive highly suggestive for recurrence. Patient reports that shehas fair appetite, her weight has been steady, she denies any nausea or vomiting, she reports intermittent abdominal pain, her pain got exaggerated after she had CT-guided biopsy from the retroperitoneal lymph nodes yesterday on March 09, 2025 Interval history: Mrs. Finnegan is a 43-year-old [...] left periaortic lymph nodes to 2.[address]-guided biopsy of the retroperitoneal lymph nodes on March 09, 2025, resultspending but ctDNA from January 2025 his positive suggestive of tumor recurrence. Cat scan of the chest abdomen pelvis from March 10, 2025 revealed stable small lung micronodulesand redemonstration of the retrocrural retroperitoneal lymphadenopathy with a maximum size of diameter of 2.5 x 1.2 cm Review of systems: A 14 point review [...] Patient presented to her local ER in [facility] with 2-3 weeks of progressive abdominal [...] cystic neck mass in the right neck. 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 Tobacco Use Smoking status: Former Current packs/day: 1.00 Average packs/day: 1 pack/day for 32.5 years (32.5 ttl pk-yrs) Types: Cigarettes Start date: 03/31/1994 Passive exposure: Current Smokeless tobacco: Never Tobacco comments: Vaping Vaping Use Vaping status: Every Day Start date: 03/31/2021 Substances: Nicotine, Flavoring Devices: [...] Not on file Social Drivers of Health Food Insecurity: Not on file Alcohol Use: Low Risk (02/12/2025) CAGE ASSESSMENT Cage unable to access: Not on file Cage max number of drinks: 0 drinks Cage Beverages a week: 0 - 7 per week Cage Questionnaire cut down: 0 Cage questionnaire annoyed: 0 Cage questionnaire guilty: 0 Cage questionnaire eye brazer crawler torch: 0 Cage Overall score: 0 Housing Stability: Not on file Tobacco Use: Medium Risk (03/09/2025) Patient History Smoking Tobacco Use: Former Smokeless Tobacco Use: Never Passive Exposure: Current Transportation Needs: Not on file Depression: Not At Risk (02/17/2025) PHQ-2 PHQ-2 Score: 0 Utilities: Not on file Stress: Not on file Intimate Partner Violence: Not on file Physical Activity: Not on file Social Connections: Not on file Financial Resource Strain: Not on file Objective Medications: Reviewed and [...] 02/05/24 - 04/15/24 Cancer management: 43-year-old female patient with left-sided KRAS mutated colorectal cancer, recurrent after she underwent allogeneic surgery with the end-to-end anastomosis on December 2023 followed by adjuvant 3 months of FOLFOX chemotherapy. CT-guided biopsy was done on March 09, 2025, results pending but CT DNA is positive highly suggestive of tumor recurrence. Next generation sequencing revealed MSI stable tumor, KRAS mutated Plan: Patient consented FOLFOX and bevacizumab with a plan to start that next week 2. Tobacco use - Complicates care currently [...] seen and examined with attending physician, Dr. Means , who assisted with formulation of the plan as described. Edison Skaggs MD, PGY5 Hematology and Medical Oncology fellow Pager number : [phone] [facility] HEMATOLOGY/BMT AND CELLULAR THERAPY PROGRAM [address] [place] [phone] I, Caroline Means MD, saw and evaluated the patient. I discussed the case with the medical student and resident/fellow and agree with the findings and plan as documented. I personally performed the Exam and Medical Decision Making. * Progress Notes - Leigh Corral, PharmD - 03/10/2025 11:00 AM EST Pharmacy Hematology/Oncology Patient Education Note I counseled the patient on their chemotherapy regimen, which was scheduled to start 03/17/25. The chemotherapy agents that this patient is scheduled to receive include: FOLFOX + Bevacizumab. I provided the patient with a written explanation of the drugs contained in the regimen and their expected side effects, toxicities, and adverse reactions. I provided verbal explanation of the same material and provided methods for self-monitoring. I answered all questions that the patient and/or caregiver had. The patient and/or caregiver demonstrated understanding of the material, and wished to proceed with the treatment. Leigh Corral, PharmD, BCOP Clinical Oncology Pharmacist documented in this encounter Plan of Treatment Upcoming Encounters Date Type Department Care Team ([facility] st Contact Info) Description 03/30/2025 8:30 AM EST Appointment [facility] [address] [place] [address] 2025 9:00 AM EST Appointment [facility] [address] [place] [address] 04/14/2025 7:45 AM EST Clinical Support [facility] [address] [place] [address] 04/14/2025 8:00 AM EST Office Visit [facility] [address] [place] [address] Edison Skaggs MD [address] [place] [address] 04/14/2025 9:30 AM EST Appointment [facility] [address] [place] [address] 04/16/2025 10:30 AM EST Appointment [facility] [address] [place] [address] 04/28/2025 8:30 AM EST Appointment [facility] [address] [place] [address] 04/30/2025 10:00 AM EST Appointment [facility] [address] [place] [address] 06/29/2025 12:30 PM EDT Clinical Support [facility] [address] [address] 06/29/2025 1:00 PM EDT Office Visit [facility] [address] [address] Danny Coon MD [address] [phone] Scheduled Orders Name Type Priority Associated Diagnoses Orde r Schedule Fluorouracil (5-FU) Disconnect Procedures Routine Colorectal cancer (CMS/HCC) 50 Occurrences starting 03/10/2025 until 09/08/2026 CBC and differential Lab Routine Malignant neoplasm of sigmoid colon (CMS/HCC) Expected: 03/30/2025, Expires: 03/30/2026 Comprehensive metabolic panel Lab Routine Malignant neoplasm of sigmoid colon (CMS/HCC) Expected: 03/30/2025, Expires: 03/30/2026 Scheduled Referrals Name Type Priority Associated Diagnoses Order Schedule Ambulatory referral to Hematology Oncology/Medical Oncology Outpatient Referral Routine Colorectal cancer (CMS/HCC) Expected: 03/10/2025 (Approximate), Expires: 09/11/2026 documented as of this encounter Results * Urinalysis, manual only (03/17/2025 7:59 AM EST) Color, Urine Yellow LAB URINALYSIS - AUTOMATED METHOD 03/17/2025 8:48 AM [facility] Clarity, Urine Clear LAB URINALYSIS - AUTOMATED METHOD 03/17/2025 8:48 AM [facility] Spec [place], Urine 1.014 1.005 - 1.030 LAB URINALYSIS - AUTOMATED METHOD 03/17/2025 8:48 AM [facility] pH, Urine 6.5 5.0 - 8.0 LAB URINALYSIS - AUTOMATED METHOD 03/17/2025 8:48 AM [facility] Protein, Urine Negative Negative mg/dL LAB URINALYSIS - AUTOMATED METHOD 03/17/2025 8:48 AM [facility] Glucose, Urine Negative Negative mg/dL LAB URINALYSIS - AUTOMATED METHOD 03/17/2025 8:48 AM [facility] Ketones, Urine Negative Negative mg/dL LAB URINALYSIS - AUTOMATED METHOD 03/17/2025 8:48 AM [facility] Blood, Urine Negative Negative LAB URINALYSIS - AUTOMATED METHOD 03/17/2025 8:48 AM [facility] Bilirubin, Urine Negative Negative LAB URINALYSIS - AUTOMATED METHOD 03/17/2025 8:48 AM [facility] Urobilinogen, Urine 0.2 0.2 to 1.0 mg/dL LAB URINALYSIS - AUTOMATED METHOD 03/17/2025 8:48 AM EST [facility] Leukocytes, Urine Negative Negative LAB URINALYSIS - AUTOMATED METHOD 03/17/2025 8:48 AM EST [facility] Nitrite, Urine Negative Negative LAB URINALYSIS - AUTOMATED METHOD 03/17/2025 8:48 AM EST [facility] Urine Urine specimen obtained by clean catch procedure / Unknown Non-blood Collection / Unknown 03/17/2025 7:59 AM EST 03/17/2025 8:39 AM EST us Franchesca Delacruz MD LAB URINE ORDERABLES Final Resu lt [facility] [address] [place] [address] * (ABNORMAL) Comprehensive metabolic panel (03/17/2025 7:59 AM EST) Glucose, Plasma 81 74 - 99 mg/dL 03/17/2025 9:07 AM [facility] BUN, Plasma 10 7 - 21 mg/dL 03/17/2025 9:07 AM [facility] Creatinine, Plasma 0.79 0.60 - 1.10 mg/dL 03/17/2025 9:07 AM [facility] BUN/Creatinine Ratio 13 03/17/2025 9:07 AM [facility] Sodium, Plasma 142 136 - 145 mmol/L 03/17/2025 9:07 AM [facility] Potassium, Plasma 3.6 3.6 - 4.9 mmol/L 03/17/2025 9:07 AM [facility] Chloride, Plasma 102 97 - 107 mmol/L 03/17/2025 9:07 AM [facility] CO2, Plasma 29 22 - 29 mmol/L 03/17/2025 9:07 AM [facility] Anion Gap 11 6 - 16 mmol/L 03/17/2025 9:07 AM [facility] Total Calcium, Plasma 9.4 8.9 - 10.2 mg/dL 03/17/2025 9:07 AM [facility] Total Protein 7.7 6.3 - 7.9 g/dL 03/17/2025 9:07 AM EST [facility] Albumin, Plasma 4.1 3.5 - 5.2 g/dL 03/17/2025 9:07 AM EST [facility] AST, Plasma 25 10 - 35 U/L 03/17/2025 9:07 AM EST [facility] ALT, Plasma 16 10 - 35 U/L 03/17/2025 9:07 AM EST [facility] Alkaline Phosphatase, Plasma 132(H) 35 - 104 U/L 03/17/2025 9:07 AM EST [facility] Total Bilirubin, Plasma 0.2 0.2 - 1.1 mg/dL 03/17/2025 9:07 AM EST [facility] eGFRcr 93.6 mL/min/1.7 3m*2 03/17/2025 9:07 AM EST [facility] Comment:Reported eGFRcr in m L/min/1.73m2 is based the CKD-EPI 2020 equation that does not use a race coefficient. Blood Venous blood specimen / Unknown Venipuncture / Unknown 03/17/2025 7:59 AM EST 03/17/2025 8:38 AM EST us Franchesca Delacruz MD LAB BLOOD ORDERABLES Final Resu lt [facility] [address] [place] [address] * (ABNORMAL) CBC and differential (03/17/2025 7:59 AM EST) WBC Count 8.79 3.70 - 10.30 10*3/uL LAB HEMATOLOGY METHOD 03/17/2025 8:39 AM EST [facility] RBC Count 4.47 3.90 - 5.20 10*6/uL LAB HEMATOLOGY METHOD 03/17/2025 8:39 AM EST [facility] HGB 12.5 11.2 - 15.7 g/dL LAB HEMATOLOGY METHOD 03/17/2025 8:39 AM EST [facility] HCT 38.5 34.0 - 45.0 % LAB HEMATOLOGY METHOD 03/17/2025 8:39 AM EST [facility] Platelet Count 348 155 - 369 10*3/uL LAB HEMATOLOGY METHOD 03/17/2025 8:39 AM [facility] MCV 86 79 - 98 fL LAB HEMATOLOGY METHOD 03/17/2025 8:39 AM EST [facility] MCH 28.0 26.0 - 32.0 pg LAB HEMATOLOGY METHOD 03/17/2025 8:39 AM EST [facility] MCHC 32.5 30.7 - 35.5 g/dL LAB HEMATOLOGY METHOD 03/17/2025 8:39 AM EST [facility] RDW 15.4(H) 11.5 - 14.5 % LAB HEMATOLOGY METHOD 03/17/2025 8:39 AM EST [facility] MPV 9.0 8.8 - 12.5 fL LAB HEMATOLOGY METHOD 03/17/2025 8:39 AM [facility] nRBC 0.0 <=0.0 per 100 WBCs LAB HEMATOLOGY METHOD 03/17/2025 8:39 AM [facility] Differential Type Automated LAB HEMATOLOGY METHOD 03/17/2025 8:39 AM [facility] Neutrophils % 61 % LAB HEMATOLOGY METHOD 03/17/2025 8:39 AM [facility] Lymphocytes % 28 % LAB HEMATOLOGY METHOD 03/17/2025 8:39 AM [facility] Monocytes % 7 % LAB HEMATOLOGY METHOD 03/17/2025 8:39 AM [facility] Eosinophils % 3 % LAB HEMATOLOGY METHOD 03/17/2025 8:39 AM [facility] Basophils % 1 % LAB HEMATOLOGY METHOD 03/17/2025 8:39 AM [facility] Immature Granulocytes % 0 % LAB HEMATOLOGY METHOD 03/17/2025 8:39 AM [facility] Neutrophils Absolute 5.31 1.60 - 6.10 10*3/uL LAB HEMATOLOGY METHOD 03/17/2025 8:39 AM [facility] Lymphocytes Absolute 2.50 1.20 - 3.90 10*3/uL LAB HEMATOLOGY METHOD 03/17/2025 8:39 AM [facility] Monocytes Absolute 0.63 0.30 - 0.90 10*3/uL LAB HEMATOLOGY METHOD 03/17/2025 8:39 AM EST [facility] Eosinophils Absolute 0.29 0.00 - 0.50 10*3/uL LAB HEMATOLOGY METHOD 03/17/2025 8:39 AM EST [facility] Basophils Absolute 0.04 0.00 - 0.10 10*3/uL LAB HEMATOLOGY METHOD 03/17/2025 8:39 AM [facility] Immature Granulocytes Absolute 0.02 0.00 - 0.06 10*3/uL LAB HEMATOLOGY METHOD 03/17/2025 8:39 AM EST [facility] Blood Venous blood specimen / Unknown Venipuncture / Unknown 03/17/2025 7:59 AM EST 03/17/2025 8:28 AM EST Narrative [facility] - 03/17/2025 8:39 AM EST Therapeutic decision making should be based on absolute values, rather than percentages. us Franchesca Delacruz MD LAB BLOOD ORDERABLES Final Resu lt [facility] [address] [place] [address] * (ABNORMAL) Urinalysis with reflex microscopic (Culture NOT Included) (03/10/2025 12:10 PM EST) Color, Urine Yellow LAB URINALYSIS - AUTOMATED METHOD 03/10/2025 12:50 PM EST [facility] Clarity, Urine Clear LAB URINALYSIS - AUTOMATED METHOD 03/10/2025 12:50 PM EST [facility] Spec [place], Urine >1.030(H) 1.005 - 1.030 LAB URINALYSIS - AUTOMATED METHOD 03/10/2025 12:50 PM EST [facility] pH, Urine 7.0 5.0 - 8.0 LAB URINALYSIS - AUTOMATED METHOD 03/10/2025 12:50 PM EST [facility] Protein, Urine Negative Negative mg/dL LAB URINALYSIS - AUTOMATED METHOD 03/10/2025 12:50 PM EST [facility] Glucose, Urine Negative Negative mg/dL LAB URINALYSIS - AUTOMATED METHOD 03/10/2025 12:50 PM [facility] Ketones, Urine Negative Negative mg/dL LAB URINALYSIS - AUTOMATED METHOD 03/10/2025 12:50 PM EST [facility] Blood, Urine Negative Negative LAB URINALYSIS - AUTOMATED METHOD 03/10/2025 12:50 PM EST [facility] Bilirubin, Urine Negative Negative LAB URINALYSIS - AUTOMATED METHOD 03/10/2025 12:50 PM EST [facility] Urobilinogen, Urine 0.2 0.2 to 1.0 mg/dL LAB URINALYSIS - AUTOMATED METHOD 03/10/2025 12:50 PM EST [facility] Leukocytes, Urine Negative Negative LAB URINALYSIS - AUTOMATED METHOD 03/10/2025 12:50 PM EST [facility] Nitrite, Urine Negative Negative LAB URINALYSIS - AUTOMATED METHOD 03/10/2025 12:50 PM EST [facility] Urine Urine specimen obtained by clean catch procedure / Unknown Non-blood Collection / Unknown 03/10/2025 12:10 PM EST 03/10/2025 12:41 PM EST us Caroline Means MD LAB URINE ORDERABLES Final Resul t [facility] [address] [place] [address] * (ABNORMAL) Comprehensive metabolic panel (03/10/2025 12:10 PM EST) Glucose, Plasma 86 74 - 99 mg/dL 03/10/2025 1:17 PM EST [facility] BUN, Plasma 12 7 - 21 mg/dL 03/10/2025 1:17 PM EST [facility] Creatinine, Plasma 0.67 0.60 - 1.10 mg/dL 03/10/2025 1:17 PM EST [facility] BUN/Creatinine Ratio 18 03/10/2025 1:17 PM EST [facility] Sodium, Plasma 139 136 - 145 mmol/L 03/10/2025 1:17 PM EST [facility] Potassium, Plasma 3.7 3.6 - 4.9 mmol/L 03/10/2025 1:17 PM EST [facility] Chloride, Plasma 100 97 - 107 mmol/L 03/10/2025 1:17 PM EST [facility] CO2, Plasma 27 22 - 29 mmol/L 03/10/2025 1:17 PM EST [facility] Anion Gap 12 6 - 16 mmol/L 03/10/2025 1:17 PM EST [facility] Total Calcium, Plasma 8.8(L) 8.9 - 10.2 mg/dL 03/10/2025 1:17 PM EST [facility] Total Protein 7.1 6.3 - 7.9 g/dL 03/10/2025 1:17 PM EST [facility] Albumin, Plasma 3.7 3.5 - 5.2 g/dL 03/10/2025 1:17 PM EST [facility] AST, Plasma 26 10 - 35 U/L 03/10/2025 1:17 PM EST [facility] Comment:Hemolyzed, result ma y be falsely increased. ALT, Plasma 18 10 - 35 U/L 03/10/2025 1:17 PM EST [facility] Alkaline Phosphatase, Plasma 133(H) 35 - 104 U/L 03/10/2025 1:17 PM EST [facility] Total Bilirubin, Plasma 0.2 0.2 - 1.1 mg/dL 03/10/2025 1:17 PM EST [facility] eGFRcr 109.3 mL/min/1.7 3m*2 03/10/2025 1:17 PM EST [facility] Comment:Reported eGFRcr in m L/min/1.73m2 is based the CKD-EPI 2020 equation that does not use a race coefficient. Blood Blood sample taken from central line / Unknown (Port) Long-term Catheter / Unknown 03/10/2025 12:10 PM EST 03/10/2025 12:45 PM EST us Caroline Means MD LAB BLOOD ORDERABLES Final Resul t [facility] [address] [place] [address] * (ABNORMAL) CBC and differential (03/10/2025 12:10 PM EST) WBC Count 8.30 3.70 - 10.30 10*3/uL LAB HEMATOLOGY METHOD 03/10/2025 12:35 PM EST [facility] RBC Count 4.15 3.90 - 5.20 10*6/uL LAB HEMATOLOGY METHOD 03/10/2025 12:35 PM EST [facility] HGB 11.6 11.2 - 15.7 g/dL LAB HEMATOLOGY METHOD 03/10/2025 12:35 PM EST [facility] HCT 36.1 34.0 - 45.0 % LAB HEMATOLOGY METHOD 03/10/2025 12:35 PM EST [facility] Platelet Count 274 155 - 369 10*3/uL LAB HEMATOLOGY METHOD 03/10/2025 12:35 PM EST [facility] MCV 87 79 - 98 fL LAB HEMATOLOGY METHOD 03/10/2025 12:35 PM EST [facility] MCH 28.0 26.0 - 32.0 pg LAB HEMATOLOGY METHOD 03/10/2025 12:35 PM EST [facility] MCHC 32.1 30.7 - 35.5 g/dL LAB HEMATOLOGY METHOD 03/10/2025 12:35 PM EST [facility] RDW 15.5(H) 11.5 - 14.5 % LAB HEMATOLOGY METHOD 03/10/2025 12:35 PM EST [facility] MPV 8.9 8.8 - 12.5 fL LAB HEMATOLOGY METHOD 03/10/2025 12:35 PM EST [facility] nRBC 0.0 <=0.0 per 100 WBCs LAB HEMATOLOGY METHOD 03/10/2025 12:35 PM EST [facility] Differential Type Automated LAB HEMATOLOGY METHOD 03/10/2025 12:35 PM EST [facility] Neutrophils % 52 % LAB HEMATOLOGY METHOD 03/10/2025 12:35 PM EST [facility] Lymphocytes % 34 % LAB HEMATOLOGY METHOD 03/10/2025 12:35 PM EST [facility] Monocytes % 8 % LAB HEMATOLOGY METHOD 03/10/2025 12:35 PM EST [facility] Eosinophils % 5 % LAB HEMATOLOGY METHOD 03/10/2025 12:35 PM EST [facility] Basophils % 1 % LAB HEMATOLOGY METHOD 03/10/2025 12:35 PM EST [facility] Immature Granulocytes % 0 % LAB HEMATOLOGY METHOD 03/10/2025 12:35 PM EST [facility] Neutrophils Absolute 4.31 1.60 - 6.10 10*3/uL LAB HEMATOLOGY METHOD 03/10/2025 12:35 PM EST [facility] Lymphocytes Absolute 2.81 1.20 - 3.90 10*3/uL LAB HEMATOLOGY METHOD 03/10/2025 12:35 PM EST [facility] Monocytes Absolute 0.66 0.30 - 0.90 10*3/uL LAB HEMATOLOGY METHOD 03/10/2025 12:35 PM EST [facility] Eosinophils Absolute 0.44 0.00 - 0.50 10*3/uL LAB HEMATOLOGY METHOD 03/10/2025 12:35 PM EST [facility] Basophils Absolute 0.05 0.00 - 0.10 10*3/uL LAB HEMATOLOGY METHOD 03/10/2025 12:35 PM EST [facility] Immature Granulocytes Absolute 0.03 0.00 - 0.06 10*3/uL LAB HEMATOLOGY METHOD 03/10/2025 12:35 PM EST [facility] Blood Blood sample taken from central line / Unknown (Port) Long-term Catheter / Unknown 03/10/2025 12:10 PM EST 03/10/2025 12:32 PM EST Narrative [facility] - 03/10/2025 12:35 PM EST Therapeutic decision making should be based on absolute values, rather than percentages. us Caroline Means MD LAB BLOOD ORDERABLES Final Resul t [facility] [address] [place] [address] documented in this encounter Visit Diagnoses Diagnosis Colorectal cancer (CMS/HCC)- Primary Malignant neoplasm of colon, unspecified site Malignant neoplasm of sigmoid colon (CMS/HCC) Malignant [...] documented as of this encounter Care Teams Flare Breaker Relationship Specialty Start Date End Date Sergey Oh MD PCP - General 11/13/21 Jean Mak MD [address] [place] [address] [phone] Surgeon Otolaryngology 11/21/21 Alice Chou, ROSHNI None None Registered Nurse 02/14/25 documented as of this encounter
--- OUTSIDE RECORDS SUMMARY | 2025-03-17 07:45 | XMS_ITS | Encounter Summary ---
Author Organization Healthcare Address [address] [place] [address] Care Team Providers Care [employer] Employee Name Role Phone Sergey Oh MD Primary Care Provider [phone] Jean Mak MD Unavailable Alice Chou RN Unavailable Unavailable Encounter Details Date Type Department Care Team (Latest Contact Info) Description 03/17/2025 7:45 AM EST Clinical Support [facility] Multidisciplinary Oncology Clinic [address] [place] [phone] Nannette Medina, RN None None Malignant neoplasm of sigmoid colon (CMS/HCC); Malignant neoplasm of descending colon (CMS/HCC) Social History Tobacco Use Types [...] drink first t mono in the morning ([employer]) to steady your nerves or to [...] Clinician Note - Nannette Medina, RN - 03/17/2025 7:45 AM EST Port accessed. Absence of blood return. Care team notified. Alteplase requested. Peripheral labs drawn documented in this encounter Plan of Treatment Upcoming Encounters Date Type Department Care Team (Late st Contact Info) Description 03/30/2025 8:30 AM EST Appointment [facility] Infusion Clinic [address] [place] [address] 2025 9:00 AM EST Appointment [facility] Infusion Clinic [address] [place] [address] 04/14/2025 7:45 AM EST Clinical Support [facility] Multidisciplinary Oncology Clinic [address] [place] [address] 04/14/2025 8:00 AM EST Office Visit [facility] Multidisciplinary Oncology Clinic [address] [place] [phone] Edison Skaggs MD [address] [place] [address] 04/14/2025 9:30 AM EST Appointment [facility] [address] [place] [address] 04/16/2025 10:30 AM EST Appointment [facility] [address] [place] [address] 04/28/2025 8:30 AM EST Appointment [facility] [address] [place] [address] 04/30/2025 10:00 AM EST Appointment [facility] [address] [place] [address] 06/29/2025 12:30 PM EDT Clinical Support [facility] [address] [facility]nd [place] [address] 06/29/2025 1:00 PM EDT Office Visit [facility] [address] [facility]nd [place] [address] Danny Coon MD [address] [facility] [address] [place] [address] documented as of this encounter Procedures Procedure Name Priority Date/Time Associated Diagnosis Comments URINALYSIS, DIPSTICK Routine 03/17/2025 7:59 AM EST Malignant neoplasm of sigmoid colon (CMS/HCC) CBC WITH AUTO DIFFERENTIAL Routine 03/17/2025 7:59 AM EST Malignant neoplasm of sigmoid colon (CMS/HCC) CEA, SERUM Routine 03/17/2025 7:59 AM EST Malignant neoplasm of descending colon (CMS/HCC) COMPREHENSIVE METABOLIC PANEL, PLASMA Routine 03/17/2025 7:59 AM EST Malignant neoplasm of sigmoid colon (CMS/HCC) documented in this encounter Results * (ABNORMAL) CEA (03/17/2025 7:59 AM EST) CEA, Serum 21.8(H) <4.0 ng/mL 03/17/2025 9:13 AM EST [facility] Blood Venous blood specimen / Unknown Venipuncture / Unknown 03/17/2025 7:59 AM EST 03/17/2025 8:38 AM EST [facility] - 03/17/2025 9:13 AM EST Normal range for smokers: < 5.5 ng/ml Normal range for non-smokers: <=4.0 ng/ml Performed by [employer] electrochemiluminescent immunoassay. Results obtained with different test methods or kits cannot be used interchangeably. us Caroline Means MD LAB BLOOD ORDERABLES Final Resul t [facility] [address] [place] [address] * Urinalysis, manual only (03/17/2025 7:59 AM EST) Color, Urine Yellow LAB URINALYSIS - AUTOMATED METHOD 03/17/2025 8:48 AM EST [facility] Clarity, Urine Clear LAB URINALYSIS - AUTOMATED METHOD 03/17/2025 8:48 AM EST [facility] Spec [place], Urine 1.014 1.005 - 1.030 LAB URINALYSIS - AUTOMATED METHOD 03/17/2025 8:48 AM EST [facility] pH, Urine 6.5 5.0 - 8.0 LAB URINALYSIS - AUTOMATED METHOD 03/17/2025 8:48 AM EST [facility] Protein, Urine Negative Negative mg/dL LAB URINALYSIS - AUTOMATED METHOD 03/17/2025 8:48 AM EST [facility] Glucose, Urine Negative Negative mg/dL LAB URINALYSIS - AUTOMATED METHOD 03/17/2025 8:48 AM EST [facility] Ketones, Urine Negative Negative mg/dL LAB URINALYSIS - AUTOMATED METHOD 03/17/2025 8:48 AM EST [facility] Blood, Urine Negative Negative LAB URINALYSIS - AUTOMATED METHOD 03/17/2025 8:48 AM EST [facility] Bilirubin, Urine Negative Negative LAB URINALYSIS - AUTOMATED METHOD 03/17/2025 8:48 AM EST [facility] Urobilinogen, Urine 0.2 0.2 to 1.0 mg/dL LAB URINALYSIS - AUTOMATED METHOD 03/17/2025 8:48 AM EST [facility] Leukocytes, Urine Negative Negative LAB URINALYSIS - AUTOMATED METHOD 03/17/2025 8:48 AM EST [facility] Nitrite, Urine Negative Negative LAB URINALYSIS - AUTOMATED METHOD 03/17/2025 8:48 AM EST [facility] Urine Urine specimen obtained by clean catch procedure / Unknown Non-blood Collection / Unknown 03/17/2025 7:59 AM EST 03/17/2025 8:39 AM EST us Franchesca Delacruz MD LAB URINE ORDERABLES Final Resu lt [facility] [address] [place] [address] * (ABNORMAL) Comprehensive metabolic panel (03/17/2025 7:59 AM EST) Glucose, Plasma 81 74 - 99 mg/dL 03/17/2025 9:07 AM EST [facility] BUN, Plasma 10 7 - 21 mg/dL 03/17/2025 9:07 AM EST [facility] Creatinine, Plasma 0.79 0.60 - 1.10 mg/dL 03/17/2025 9:07 AM EST [facility] BUN/Creatinine Ratio 13 03/17/2025 9:07 AM EST [facility] Sodium, Plasma 142 136 - 145 mmol/L 03/17/2025 9:07 AM EST [facility] Potassium, Plasma 3.6 3.6 - 4.9 mmol/L 03/17/2025 9:07 AM EST [facility] Chloride, Plasma 102 97 - 107 mmol/L 03/17/2025 9:07 AM EST [facility] CO2, Plasma 29 22 - 29 mmol/L 03/17/2025 9:07 AM EST [facility] Anion Gap 11 6 - 16 mmol/L 03/17/2025 9:07 AM EST [facility] Total Calcium, Plasma 9.4 8.9 - 10.2 mg/dL 03/17/2025 9:07 AM EST [facility] Total Protein 7.7 6.3 - 7.9 g/dL 03/17/2025 9:07 AM EST [facility] Albumin, Plasma 4.1 3.5 - 5.2 g/dL 03/17/2025 9:07 AM EST [facility] AST, Plasma 25 10 - 35 U/L 03/17/2025 9:07 AM EST [facility] ALT, Plasma 16 10 - 35 U/L 03/17/2025 9:07 AM EST [facility] Alkaline Phosphatase, Plasma 132(H) 35 - 104 U/L 03/17/2025 9:07 AM EST [facility] Total Bilirubin, Plasma 0.2 0.2 - 1.1 mg/dL 03/17/2025 9:07 AM EST [facility] eGFRcr 93.6 mL/min/1.7 3m*2 03/17/2025 9:07 AM EST [facility] Comment:Reported eGFRcr in m L/min/1.73m2 is based the CKD-EPI 2020 equation that does not use a race coefficient. Blood Venous blood specimen / Unknown Venipuncture / Unknown 03/17/2025 7:59 AM EST 03/17/2025 8:38 AM EST us Franchesca Delacruz MD LAB BLOOD ORDERABLES Final Resu lt [facility] [address] [place] [address] * (ABNORMAL) CBC and differential (03/17/2025 7:59 AM EST) WBC Count 8.79 3.70 - 10.30 10*3/uL LAB HEMATOLOGY METHOD 03/17/2025 8:39 AM EST [facility] RBC Count 4.47 3.90 - 5.20 10*6/uL LAB HEMATOLOGY METHOD 03/17/2025 8:39 AM EST [facility] HGB 12.5 11.2 - 15.7 g/dL LAB HEMATOLOGY METHOD 03/17/2025 8:39 AM EST [facility] HCT 38.5 34.0 - 45.0 % LAB HEMATOLOGY METHOD 03/17/2025 8:39 AM EST [facility] Platelet Count 348 155 - 369 10*3/uL LAB HEMATOLOGY METHOD 03/17/2025 8:39 AM [facility] MCV 86 79 - 98 fL LAB HEMATOLOGY METHOD 03/17/2025 8:39 AM EST [facility] MCH 28.0 26.0 - 32.0 pg LAB HEMATOLOGY METHOD 03/17/2025 8:39 AM EST [facility] MCHC 32.5 30.7 - 35.5 g/dL LAB HEMATOLOGY METHOD 03/17/2025 8:39 AM EST [facility] RDW 15.4(H) 11.5 - 14.5 % LAB HEMATOLOGY METHOD 03/17/2025 8:39 AM EST [facility] MPV 9.0 8.8 - 12.5 fL LAB HEMATOLOGY METHOD 03/17/2025 8:39 AM [facility] nRBC 0.0 <=0.0 per 100 WBCs LAB HEMATOLOGY METHOD 03/17/2025 8:39 AM [facility] Differential Type Automated LAB HEMATOLOGY METHOD 03/17/2025 8:39 AM [facility] Neutrophils % 61 % LAB HEMATOLOGY METHOD 03/17/2025 8:39 AM [facility] Lymphocytes % 28 % LAB HEMATOLOGY METHOD 03/17/2025 8:39 AM [facility] Monocytes % 7 % LAB HEMATOLOGY METHOD 03/17/2025 8:39 AM [facility] Eosinophils % 3 % LAB HEMATOLOGY METHOD 03/17/2025 8:39 AM [facility] Basophils % 1 % LAB HEMATOLOGY METHOD 03/17/2025 8:39 AM [facility] Immature Granulocytes % 0 % LAB HEMATOLOGY METHOD 03/17/2025 8:39 AM [facility] Neutrophils Absolute 5.31 1.60 - 6.10 10*3/uL LAB HEMATOLOGY METHOD 03/17/2025 8:39 AM [facility] Lymphocytes Absolute 2.50 1.20 - 3.90 10*3/uL LAB HEMATOLOGY METHOD 03/17/2025 8:39 AM [facility] Monocytes Absolute 0.63 0.30 - 0.90 10*3/uL LAB HEMATOLOGY METHOD 03/17/2025 8:39 AM EST [facility] Eosinophils Absolute 0.29 0.00 - 0.50 10*3/uL LAB HEMATOLOGY METHOD 03/17/2025 8:39 AM EST [facility] Basophils Absolute 0.04 0.00 - 0.10 10*3/uL LAB HEMATOLOGY METHOD 03/17/2025 8:39 AM EST [facility] Immature Granulocytes Absolute 0.02 0.00 - 0.06 10*3/uL LAB HEMATOLOGY METHOD 03/17/2025 8:39 AM EST [facility] Blood Venous blood specimen / Unknown Venipuncture / Unknown 03/17/2025 7:59 AM EST 03/17/2025 8:28 AM EST Narrative [facility] - 03/17/2025 8:39 AM EST Therapeutic decision making should be based on absolute values, rather than percentages. us Franchesca Delacruz MD LAB BLOOD ORDERABLES Final Resu lt [facility] [address] [place] [address] documented in this encounter Visit Diagnoses Diagnosis Malignant neoplasm of sigmoid colon (CMS/HCC) Malignant neoplasm of sigmoid colon Malignant neoplasm of descending colon (CMS/HCC) Malignant neoplasm of descending colon documented in this encounter Additional Health Concerns Assessment Noted Time PHQ-9 Depression Total Score: 0 06/22/19 25 1:53 PM EDT A fall risk assessment has been complete d for the patient 03/17/2025 8:56 AM EST A Body Mass Index follow-up plan has been documented for the patient 03/09/2025 9:06 AM EST documented as of this encounter Care Teams [employer] Employee Relationship Specialty Start Date End Date Sergey Oh MD PCP - General 11/13/21 Jean Mak MD [address] [place] [address] [phone] Surgeon Otolaryngology 11/21/21 Alice Chou, ROSHNI None None Registered Nurse 02/14/25 documented as of this encounter
--- OUTSIDE RECORDS SUMMARY | 2025-03-17 07:50 | XMS_ITS | Encounter Summary ---
Author Organization [facility] Address [address] [id number] Care Team Providers Care Bobbin Washer Name Role Phone Sergey Oh MD Primary Care Provider [phone] Jean Mak MD Unavailable [phone] Alice Chou RN Unavailable Unavailable Reason for Visit * Reason Comments Follow-up Colorectal cancer Encounter Details Date Type Department Care Team (Latest Contact Info) Description 03/17/2025 7:50 AM EST Office Visit [facility] Multidisciplinary Oncology Clinic [address] [place] [phone] Edison Skaggs MD [address] [place] [phone] 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) Social History Tobacco [...] drink first t mono in the morning (EYE-TAILER IN) to steady your nerves or to get [...] Sign Reading Time Taken Comments Blood Pressure 114/82 03/17/2025 7:44 AM EST Pulse 90 03/17/2025 7:44 AM EST Temperature 37.2 C (99 F) 03/17/2025 7:44 AM EST Respiratory Rate - - Oxygen Saturation 94% 03/17/2025 7:44 AM EST Inhaled Oxygen Concentration - - Weight 65.8 kg (145 lb) 03/17/2025 7:44 AM EST Height 157.5 cm (5' 2 ) 03/17/2025 7:44 AM EST Body Mass Index 26.52 03/17/2025 7:44 AM EST documented in this encounter Miscellaneous Notes * Addendum Note - Erich Delacruz MD - 03/17/2025 7:50 AM ESTAddended by: ERICH DELACRUZ on: 03/18/2025 08:50 AM Modules accepted: Level of Service * Progress Notes - Edison Skaggs MD - 03/17/2025 7:[address] General Medical Oncology Clinic [...] defined for this encounter. Subjective Patient was seen and evaluated today in the clinic, patient is doing fairly well, patient will be started today on FOLFOX with bevacizumab for metastatic recurrent colorectal cancer, left-sided with K-sanford mutation. She has been maintaining her weight but she reports chronic poor appetite due to intermittent abdominal pain, we will discuss sending her protein shakes to take at home to maintain her weight during the chemotherapy. She is otherwise doing well and eager to start her treatment. Interval history: 43-year-old female patient, has been getting adjuvant FOLFOX for high-risk stage II colorectal cancer. On serum follow up, the patient was found to have recurrence of the retroperitoneal lymph nodes,biopsy proved adenocarcinoma consistent with colon cancer. The patient is originally restricted left-sided colorectal cancer, patient underwent CT-guided biopsy of the retroperitoneal lymph nodes and proved recurrence of colon adenocarcinoma. Patient received adjuvant FOLFOX and finished that in Mar 2024. Patient underwent CT-guided biopsy of the retroperitoneal lymph nodes on March 09, 2025., results pending but ctDNA from January 2025 his positive suggestive of tumor recurrence. Cat scan of the chest abdomen pelvis from March 10, 2025 revealed stable small lung micronodulesand redemonstration of the retrocrural retroperitoneal lymphadenopathy with a maximum size of diameter of 2.5 x 1.2 cm Of note, she finished adjuvant chemotherapy treatment for stage II high-risk colorectal cancer in /2024, 3 cycles at the time, no significant neuropathy. Review of systems: A 14 point review [...] Patient presented to her local ER in [facility] with 2-3 weeks of progressive abdominal [...] cystic neck mass in the right neck. [facility] Path: follicular cells in a background [...] (03/18/2024), 3,950 mg (2024), 3,950 mg (04/15/2024) 03/17/2025 - Chemotherapy leucovorin (Wellcovorin) 700 mg in dextrose 5 % 100 mL IVPB, 400 mg/m2 = 700 mg, Intravenous, Once,0 of 6 cycles bevacizumab-awwb (Mvasi) 350 mg in sodium chloride 0.9 % 100 mL IVPB, 5 mg/kg = 350 mg, Intravenous, Once, 0 of 6 cycles OXALIplatin (Eloxatin) 142.5 mg in dextrose 5 % 250 mL IVPB, 85 mg/m2 = 142.5 mg, Intravenous, Once, 0 of 6 cycles fluorouracil (Adrucil) chemo injection 700 mg, 400 mg/m2 = 700 mg, Intravenous, Once, 0 of 6 cycles fluorouracil (Adrucil) 4,000 mg in sodium chloride 0.9 % 101 mL infusion - for home use, 2,400 mg/m2 = 4,000 mg, Intravenous, Over 46 hours, 0 of 6 cycles Past medical history: Past Medical History: Diagnosis [...] cancer Mother Zara Cárdenas Hypercholesterolemia Mother Zara Melia Hypertension Mother Zara Ann Hypertension Father Brian Serrano Hypercholesterolemia Father Brian Serrano Thyroid disease Father Brian Zach Thyroid cancer Neg Hx Malig Hyperthermia Neg Hx Social history: Social History Socioeconomic History Marital status: Spouse name: Gal Manuel Number of children: 4 Years of education: Not on file Highest education level: Associate degree: academic program Occupational History Occupation: Unemployed 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 Tobacco Use Smoking status: Former Current packs/day: 1.00 Average packs/day: 1 pack/day for 32.6 years (32.6 ttl pk-yrs) Types: Cigarettes Start date: 03/31/1994 [...] Cage questionnaire guilty: 0 Cage questionnaire 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 CT-guided biopsy was done on March 09, 2025, results revealed recurrent colorectal cancer, left-sided, MSI stable, K-sanford mutated.. Plan: Patient consented FOLFOX and bevacizumab C1D1 on 03/17/25 RTC in [address] scans after 3 months Follow up ctDNA 2. Tobacco use - Complicates care currently [...] seen and examined with attending physician, Dr. Delacruz , who assisted with formulation of the plan as described. Edison Skaggs MD, PGY5 Hematology and Medical Oncology fellow Pager number : [phone] [facility] HEMATOLOGY/BMT AND CELLULAR THERAPY PROGRAM [address] [place] [phone] g. Cosigned by Erich Delacruz MD at 03/18/2025 8:50 AM EST Associated attestation - Erich Delacruz MD - 03/18/2025 8:50 AM EST I saw and evaluated the patient with the resident/fellow. I discussed the case with the resident/fellow and agree with the findings and plan as documented. Plan to start therapy today No acute questions at this time Labs reviewed with respect to bone marrow, renal, and hepatic function and appropriate to proceed with treatment. Orders reviewed. 45 minutes were spent with the patient of which 30 or more were counseling minutes regarding plan and coordination of care and follow up lab and/or scan review, scheduling, symptom management, and possible treatment side effects of anti-cancer therapy. * Progress Notes - Leigh Corral, PharmD - 03/17/2025 7:50 AM EST Pharmacy Hematology/Oncology Treatment Note Anita Finnegan is a 44 y.o. female with Cancer Staging Colon cancer (CMS/HCC) Staging form: Colon and Rectum, AJCC 8th Edition - Clinical stage from 01/15/2024: Stage IIA (cT3, cN0, cM0) - Unsigned Papillary microcarcinoma of thyroid (CMS/HCC) Staging form: Thyroid - Differentiated, AJCC 8th Edition - Clinical stage from 09/09/2019: Stage I (cT1a, cN1b, cM0, Age at diagnosis: < 55 years) - Signed by Jean Mak MD on 11/04/2021 Study Patient: no Treatment Plan reviewed for FOLFOX + Bevacizumab every 14 days every 28 days [x] Follow-Up Clinical Review for Cycle 1 Days 1, 15 Interval History: 02/05/24: Ms. Finnegan is doing well today. She was previously seen in clinic for workup, there was concern for small pulmonary nodules, however, these are stable, and thoracic surgery noted that none are currently resectable or safe to biopsy. She previously underwent colectomy on 12/12/23, will treat as a stage IIA disease. Plan is for 3 months of FOLFOX. Patient counseled in clinic. Labs appropriate for treatment. 02/19/24: Ms. Finnegan is doing well after initiating treatment, only reports one episode of nausea and vomiting after day 1, she said this occurred after she felt a burst of energy and cleaned her house. Platelets are appropriate for treatment, but have decreased by almost half of previous value, will drop 5-FU and LCV bolus due to thrombocytopenia. 03/18/24: Team discussed possibly adding back 5FU/LCV but ultimately decided to leave out. 04/15/24: Today is Ms. Finnegan's last dose of FOLFOX. Labs reviewed and okay to proceed. 03/17/25: Ms. Finnegan unfortunately has recurrence. Will proceed with folfox and bevacizumab and drop 5-FU bolus/LCV for predicted tolerability. Today's Wt: Wt Readings from Last 1 Encounters: 03/17/25 66.7 kg (147 lb 0.8 oz) Dosing Wt: 67.8 kg Dosing Ht: 157.5 cm DosingBSA: 1.69 m2 Recent Labs: Lab Results Component Value Date WBC 8.79 03/17/2025 HGB 12.5 03/17/2025 HCT 38.5 03/17/2025 MCV 86 03/17/2025 PLT 348 03/17/2025 Lab Results Component Value Date GLUCOSE 81 03/17/2025 CALCIUM 9.4 03/17/2025 NA 142 03/17/2025 K 3.6 03/17/2025 CO2 29 03/17/2025 CL 102 03/17/2025 BUN 10 03/17/2025 CREATININE 0.79 03/17/2025 Lab Results Component Value Date ALT 16 03/17/2025 AST 25 03/17/2025 ALKPHOS 132 (H) 03/17/2025 BILITOT 0.2 03/17/2025 Lab Results Component Value Date NEUTROABS 5.31 03/17/2025 Lab Results Component Value Date MG 2.0 02/14/2025 Lab Results Component Value Date TSH 0.01 (L) 12/29/2024 Lab Results Component Value Date URINEPRO Negative 03/17/2025 Vitals: Visit Vitals BP 114/82 Pulse 90 Temp 37.2 ??C (99 ??F) Other Relevant Monitoring: none Treatment/Therapy Plan: Oxaliplatin 85 mg/m2 (142.5 mg) IV D1, D15 Bevacizumab 5 mg/kg (350 mg) IV D1, D15 5-FU 2400 mg/m2 (4000 mg) IV D1, D15 over 46 hours [x] 5-FU and LCV bolus omitted due to thrombocytopenia Current Treatment Plan History: FOLFOX + Tati Cycle 1: 03/17, 03/30/25 Prior Treatment History: FOLFOX Cycle 1: 02/04, 02/19/24 Cycle 2: 03/04/24, 03/18/24 Cycle 3: 04/01/24, 04/15/24 Plan: Patient will return to clinic in 4 weeks. Will follow-up at that time. Pharmacist Attestation: Leigh Corral, IsauraD, OP Clinical Oncology Pharmacist documented in this encounter Plan of Treatment Upcoming Encounters Date Type Department Care Team (Late st Contact Info) Description 03/30/2025 8:30 AM EST Appointment [facility] [address] [place] [address] 2025 9:00 AM EST Appointment [facility] [address] [place] [address] 04/14/2025 7:45 AM EST Clinical Support [facility] [address] [place] [address] 04/14/2025 8:00 AM EST Office Visit [facility] [address] [place] [address] Edison Skaggs MD [address] [place] [address] 04/14/2025 9:30 AM EST Appointment [facility] [address] [place] [address] 04/16/2025 10:30 AM EST Appointment [facility] [address] [place] [address] 04/28/2025 8:30 AM EST Appointment [facility] [address] [place] [phone] 04/30/2025 10:00 AM EST Appointment [facility] [address] [place] [address] 06/29/2025 12:30 PM EDT Clinical Support [facility] [address] [phone] 06/29/2025 1:00 PM EDT Office Visit [facility] [address] [phone] [place] [address] [place] [phone] documented as of this encounter Results * (ABNORMAL) CEA (03/17/2025 7:59 AM EST) CEA, Serum 21.8(H) <4.0 ng/mL 03/17/2025 9:13 AM EST [facility] Blood Venous blood specimen / Unknown Venipuncture / Unknown 03/17/2025 7:59 AM EST 03/17/2025 8:38 AM EST Narrative [facility] - 03/17/2025 9:13 AM EST Normal range for smokers: < 5.5 ng/ml Normal range for non-smokers: <=4.0 ng/ml Performed by [employer] electrochemiluminescent immunoassay. Results obtained with different test methods or kits cannot be used interchangeably. us Caroline Means MD LAB BLOOD ORDERABLES Final Resul t [facility] [address] [place] [address] documented in this encounter Visit Diagnoses Diagnosis Malignant neoplasm of descending colon (CMS/HCC)- Primary Malignant neoplasm of descending colon documented in this encounter Administered Medications Inactive Administered Medications - up to 3 most recent administrations Medication Order MAR Action Action Date Dose Rate Site alteplase (Cathflo Activase) injection 2 mg 2 mg, Intracatheter, Once, 1 dose, On Peg 03/17/25 at 0830, RoutineIndications:Malignant neoplasm of descending colon (CMS/HCC) Given 03/17/2025 8:29 AM EST 2 mg Port documented in this encounter Additional Health Concerns Assessment Noted Time PHQ-9 Depression Total Score: 0 06/22/19 1:53 PM EDT A fall risk assessment has been complete d for the patient 03/17/2025 8:56 AM EST A Body Mass Index follow-up plan has been documented for the patient 03/09/2025 9:06 AM EST documented as of this encounter Care Teams Bobbin Washer Relationship Specialty Start Date End Date Sergey Oh MD PCP - General 11/13/21 Jean Mak MD [address] [facility] [address] [place] [phone] Surgeon Otolaryngology 11/21/21 Alice Chou, ROSHNI None None Registered Nurse 02/14/25 documented as of this encounter
--- OUTSIDE RECORDS SUMMARY | 2025-03-17 08:51 | XMS_ITS | Encounter Summary ---
Author Organization [facility] Address [address] [place] [address] Care Team Providers Care Form Designer Name Role Phone Sergey Oh MD Primary Care Provider [phone] Jean Mak MD Unavailable [phone] Alice Chou RN Unavailable Unavailable Reason for Visit * Episode Based Medications (Routine) - Authorized Specialty Diagnoses / Procedures Referred By Contac t Referred To Contact Diagnoses Malignant neoplasm of sigmoid colon (CMS/HCC) Procedures [id number] + Bevacizumab: Leucovorin + Fluorouracil + OXALIplatin + Bevacizumab Every 14 Days x 2 Every 28 Days Franchesca Delacruz MD 800 [facility] [place] [address] [address] Phone: tel: fax: Franchesca Delacruz MD 800 [facility] [place] [address] [address] Phone: tel: fax: Referral ID Status Reason Start Date Expiration Date V isits Requested Visits Authorized [id number] Authorized 03/17/2025 09/16/2026 1 117 Encounter Details Date Type Department Care Team (Latest Contact Info) Description 03/17/2025 8:51 AM EST - 03/17/2025 11:59 PM EST Hospital Encounter [facility] [address] [place] [phone] Malignant neoplasm of sigmoid colon (CMS/HCC) (Primary Dx); Malignant neoplasm of thyroid metastatic to lymph [...] drink first t mono in the morning (EYE-WEEKEND RECEPTIONIST) to steady your nerves or to get [...] Sign Reading Time Taken Comments Blood Pressure 96/68 03/17/2025 12:01 PM EST Pulse 92 03/17/2025 12:01 PM EST Temperature 36.3 C (97.4 F) 03/17/2025 8:51 AM EST Respiratory Rate 16 03/17/2025 8:51 AM EST Oxygen Saturation 99% 03/17/2025 8:51 AM EST Inhaled Oxygen Concentration - - Weight 66.7 kg (147 lb 0.8 oz) 03/17/2025 8:51 A M EST Height 157.5 cm (5' 2 ) 03/17/2025 8:51 AM EST Body Mass Index 26.9 03/17/2025 8:51 AM EST documented in this encounter Medications at Time [...] treatment 48 tablet 03/11/2025 ergocalciferol 1.25 MG (31323 UT) capsule TAKE ONE (1) CAPSULE BY MOUTH ONE (1) TIME PER WEEK. 12 capsule 3 12/22/2024 HYDROcodone-acet aminophen ([facility]) 10-325 MG tablet Take 1 tablet by mouth every 6 hours as needed for severe pain. 15 tablet 03/10/2025 HYDROcodone-acet aminophen ([facility]) 7.5-325 MG tablet ipratropium-albu terol (Duo-Neb) 0.5-2.5 [...] nostril if symptoms continue 1 each 02/14/2025 nutritional drink (Boost) liquid liquid Take 1 Bottle by mouth daily. 7110 mL 2 03/17/2025 polyethylene glycol (Miralax) 17 GM/SCOOP powder Take [...] encounter Miscellaneous Notes * Addendum Note - Alexis Crocker - 03/17/2025 9:30 AM ESTEncounter addended by: Alexis Crocker on: 03/18/2025 10:58 AM Actions taken: Charge Capture section accepted documented in this encounter Plan of Treatment Upcoming Encounters Date Type Department Care Team (Late st Contact Info) Description 03/30/2025 8:30 AM EST Appointment [facility] Infusion [facility] [address] [place] [address] 2025 9:00 AM EST Appointment [facility]fusion [facility] 2 [address] [place] [address] 04/14/2025 7:45 AM EST Clinical Support [facility] Multidisciplinary Oncology Clinic [address] [place] [address] 04/14/2025 8:00 AM EST Office Visit [facility] Multidisciplinary Oncology Clinic [address] [place] [address] Edison Skaggs MD [address] [place] [address] 04/14/2025 9:30 AM EST Appointment [facility] [address] [place] [address] 04/16/2025 10:30 AM EST Appointment [facility] [address] [place] [address] 04/28/2025 8:30 AM EST Appointment [facility] [address] [place] [address] 04/30/2025 10:00 AM EST Appointment [facility] 1 [address] [place] [address] 06/29/2025 12:30 PM EDT Clinical Support [facility] 800 [facility], [address] [place] [address] 06/29/2025 1:00 PM EDT Office Visit [facility] [address] [phone] Danny Coon MD [address] [facility] [address] [place] [address] documented as of this encounter Visit Diagnoses Diagnosis Malignant neoplasm of sigmoid colon (CMS/HCC)- Primary Malignant neoplasm of sigmoid 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 Hold for at least 28 days after surgery. Monitor BP prior to and upon completion of infusion. Specific administration requirements refer to A14-065., On Peg 03/17/25 at 1230, For 1 dose, NS 100 mLIndications:Malignant neoplasm of sigmoid colon (CMS/HCC) New Bag 03/17/2025 11:51 AM EST 350 mg 864 mL/hr dexamethasone (Decadron) tablet 12 mg 12 mg, Oral, Once, 1 dose, On Peg 03/17/25 at 0945, RoutineIndications:Malignant neoplasm of sigmoid colon (CMS/HCC) Given 03/17/2025 9:23 AM EST 12 mg fluorouracil (Adrucil) 4,000 mg in sodium chloride 0.9 % 101 mL infusion - for home use 4,000 mg (rounded from 4,056 mg = 2,400 mg/m2 1.69 m2 Treatment Plan BSA from Recorded weight), Intravenous, at 2.2 mL/hr, Administer over 46 Hours, Over 46 hours, Dispense from [facility] Pharmacy Hazardous Drug-Tier 1 Precautions. Administer via [facility]. Dispose in BLACK Hazardous Waste Container. Chemotherapy: refer to A14-065., First dose on Peg 03/17/25 at 1245, For 1 dose, [facility] SuppliedIndications:Malignant neoplasm of sigmoid colon (CMS/HCC) Given 03/17/2025 12:02 PM EST 4,000 mg 2.2 mL/hr ondansetron ODT (Zofran-ODT) disintegrating tablet 16 mg 16 mg, Oral, Once, 1 dose, On Peg 03/17/25 at 0945, RoutineIndications:Malignant neoplasm of sigmoid colon (CMS/HCC) Given 03/17/2025 9:23 AM EST 16 mg OXALIplatin (Eloxatin) 142.5 mg in dextrose 5 % 250 mL IVPB 142.5 mg (rounded from 143.65 mg = 85 mg/m2 1.69 m2 Treatment Plan BSA from Recorded weight), Intravenous, at 162 mL/hr, Administer over 2 Hours, Once, Hazardous Drug-Tier 1 Precautions. Dispose in BLACK Hazardous Waste Container. 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 Given 03/17/2025 9:23 AM EST 40 mEq documented in this encounter Additional Health Concerns Assessment Noted Time PHQ-9 Depression Total Score: 0 06/22/19 25 1:53 PM EDT A fall risk assessment has been complete d for the patient 03/17/2025 8:56 AM EST A Body Mass Index follow-up plan has been documented for the patient 03/09/2025 9:06 AM EST documented as of this encounter Care Teams Form Designer Relationship Specialty Start Date End Date Sergey Oh MD PCP - General 11/13/21 Jean Mak MD 800 [facility] [address] [address] Surgeon Otolaryngology 11/21/21 Alice Chou, RN None None Registered Nurse 02/14/25 documented as of this encounter
--- OUTSIDE RECORDS SUMMARY | 2025-03-19 10:22 | XMS_ITS | Encounter Summary ---
Author Organization [facility] Address [address] 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) Discharge Disposition: Home or Self Care Social [...] drink first t mono in the morning (EYE-DIRECT SUPPORT PROFESSIONAL) to steady your nerves or to get [...] Sign Reading Time Taken Comments Blood Pressure 109/71 03/19/2025 10:31 AM EST Pulse 90 03/19/2025 10:31 AM EST Temperature 36.6 C (97.9 F) 03/19/2025 10:31 AM EST Respiratory Rate 16 03/19/2025 10:31 AM EST Oxygen Saturation 98% 03/19/2025 10:31 AM EST Inhaled Oxygen Concentration - - Weight 66.3 kg (146 lb 2.6 oz) 03/19/2025 10:31 AM EST Height 160 cm (5' 3 ) 03/19/2025 10:31 AM EST Body Mass Index 25.89 03/19/2025 10:31 AM EST documented in this encounter Medications [...] treatment 48 tablet 03/11/2025 ergocalciferol 1.25 MG (61331 UT) capsule TAKE ONE (1) CAPSULE BY MOUTH ONE (1) TIME PER WEEK. 12 capsule 3 12/22/2024 HYDROcodone-acet aminophen ([facility]) 10-325 MG tablet Take 1 tablet by mouth every 6 hours as needed for severe pain. 15 tablet 03/10/2025 HYDROcodone-acet aminophen ([facility]) 7.5-325 MG tablet ipratropium-albu terol ([facility]) 0.5-2.5 [...] Inhalations daily. documented as of this encounter Plan of Treatment Upcoming Encounters Date Type Department Care Team (Priscilla galvez Contact Info) Description 03/30/2025 8:30 AM EST Appointment [facility] 2 [address] [place] [address] 2025 9:00 AM EST Appointment [facility] 2 [address] [place] [address] 04/14/2025 7:45 AM EST Clinical Support [facility] 800 [place] [address] 04/14/2025 8:00 AM EST Office Visit [facility] [address] [place] [address] Edison Skaggs MD 800 [place] [address] 04/14/2025 9:30 AM EST Appointment [facility] [address] [place] [address] 04/16/2025 10:30 AM EST Appointment [facility] [address] [place] [address] 04/28/2025 8:30 AM EST Appointment [facility] [address] [place] [address] 04/30/2025 10:00 AM EST Appointment [facility] 1 [address] [place] [address] 06/29/2025 12:30 PM EDT Clinical Support [facility] [address] [address] 06/29/2025 1:00 PM EDT Office Visit [facility] [address] [address] Danny Coon MD [address] [place] [address] documented as of this encounter Visit Diagnoses Diagnosis Malignant neoplasm of splenic flexure (CMS/HCC)- Primary Malignant neoplasm of splenic flexure documented in this encounter Additional Health Concerns Assessment Noted Time PHQ-9 Depression Total Score: 0 06/22/19 1:53 PM EDT A fall risk assessment has been complete d for the patient 03/19/2025 10:30 AM EST A Body Mass Index follow-up plan has been documented for the patient 03/09/2025 9:06 AM EST documented as of this encounter Care Teams Middleware Systems Architect Relationship Specialty Start Date End Date Sergey Oh MD PCP - General 11/13/21 Jean Mak MD 800 [facility] Cancer [address] [address] Surgeon Otolaryngology 11/21/21 Alice Chou, RN None None Registered Nurse 02/14/25 documented as of this encounter
--- OUTSIDE RECORDS SUMMARY | 2025-03-22 09:55 | XMS_ITS | Encounter Summary ---
Author Organization [facility] Address [address] [place] [address] Care Team Providers Care Ip Counsel Name Role Phone Sergey Oh MD Primary Care Provider [phone] Jean Mak MD Unavailable [phone] Alice Chou RN Unavailable Unavailable Reason for Visit * Reason Comments Med Refill Encounter Details Date Type Department Care Team (Late st Contact Info) Description 05/12/2024 Refill [facility] [address] [place] [address] Danny Coon MD [address] [facility] 125 [place] [address] Social History Tobacco Use Types [...] EST Appointment [facility] 2 [address] [place] [address] 2025 9:00 AM EST Appointment [facility] 2 [address] [place] [address] 04/14/2025 7:45 AM EST Clinical Support [facility] 800 [place] [address] 04/14/2025 8:00 AM EST Office Visit [facility] 800 [place] [address] Edison Skaggs MD 800 [place] [address] 04/14/2025 9:30 AM EST Appointment [facility] 800 [place] [address] 04/16/2025 10:30 AM EST Appointment [facility] [address] [place] [address] 04/28/2025 8:30 AM EST Appointment [facility] [address] [place] [address] 04/30/2025 10:00 AM EST Appointment [facility] 1 [address] [place] [address] 06/29/2025 12:30 PM EDT Clinical Support [facility] 800 [facility], 2nd [place] [address] 06/29/2025 1:00 PM EDT Office Visit [facility] 800 [facility], [address]nd [place] [address] Danny Coon MD 2[address] [facility] [address] [place] [address] documented as of this encounter Visit Diagnoses [...] documented as of this encounter Care Teams Ip Counsel Relationship Specialty Start Date End Date Sergey Oh MD PCP - General 11/13/21 Jean Mak MD 800 [facility] [address] [place] [address] Surgeon Otolaryngology 11/21/21 Alice Chou RN None None Registered Nurse 02/14/25 documented as of this encounter
--- OUTSIDE RECORDS SUMMARY | 2025-03-22 09:55 | XMS_ITS | Encounter Summary ---
Author Organization [facility] Address [address] [place] [address] Care Team Providers Care Product Info Specialist Name Role Phone Pcp, No Primary Care Provider Unavailabl Sergey Oreilly MD Primary Care Provider [phone] Jean Mak MD Unavailable [phone] Alice Chou RN Unavailable Unavailable Encounter Details Date Type Department Care Team (Late Contact Info) Description 06/06/2016 Orders Only External Location 800 [place] [address] Provider, External Social History Tobacco Use Types [...] Department Care Team (Late Contact Info) Description 03/30/2025 8:30 AM EST Appointment [facility] 2 [address] [place] [address] 2025 9:00 AM EST Appointment [facility] 2 [address] [place] [address] 04/14/2025 7:45 AM EST Clinical Support [facility] 800 [place] [address] 04/14/2025 8:00 AM EST Office Visit [facility] 800 [place] [address] Edison Skaggs MD 800 [place] [address] 04/14/2025 9:30 AM EST Appointment [facility] 800 [place] [address] 04/16/2025 10:30 AM EST Appointment [facility] 800 [place] [address] 04/28/2025 8:30 AM EST Appointment [facility] 800 [place] [address] 04/30/2025 10:00 AM EST Appointment [facility] 1 [address] [place] [address] 06/29/2025 12:30 PM EDT Clinical Support [facility] 800 [facility], 2nd [place] [address] 06/29/2025 1:00 PM EDT Office Visit [facility] [address] [address] Danny Coon MD [address] [place] [address] documented as of this encounter Procedures [...] on filedocumented in this encounter Care Teams Product Info Specialist Relationship Specialty Start Date End Date Pcp, No 800 [place] [address] PCP - General Family Medicine 03/31/21 11/12/21 Sergey Oh MD 800 [place] [address] PCP - General 11/13/21 Jean Mak MD 800 [facility] Cancer [address] [address] Surgeon Otolaryngology 11/21/21 Alice Chou RN None None Registered Nurse 02/14/25 documented as of this encounter
--- OUTSIDE RECORDS SUMMARY | 2025-03-22 09:55 | XMS_ITS | Encounter Summary ---
Author Organization [facility] Address [address] [id number] Care Team Providers Care Fishing Vessel Operator Name Role Phone Sergey Oh MD Primary Care Provider [phone] Jean Mak MD Unavailable [phone] Alice Chou RN Unavailable Unavailable Encounter Details Date Type Department Care Team (Late st Contact Info) Description 01/19/2025 Orders Only [facility] Hematology/BMT and Cellular Therapy Program [address] [place] [address] [place] [address] Edison Skaggs MD [address] [place] [phone] Malignant neoplasm of ascending colon (CMS/HCC) (Primary [...] Care Team ([facility] Contact Info) Description 03/30/2025 8:30 AM EST Appointment [facility] 2 [address] [place] [address] 2025 9:00 AM EST Appointment [facility] 2 [address] [place] [address] 04/14/2025 7:45 AM EST Clinical Support [facility] 800 [place] [address] 04/14/2025 8:00 AM EST Office Visit [facility] [address] Edison Skaggs MD [address] [place] [phone] 04/14/2025 9:30 AM EST Appointment [facility] 800 [place] [address] 04/16/2025 10:30 AM EST Appointment [facility] 800 [place] [address] 04/28/2025 8:30 AM EST Appointment [facility] 800 [place] [address] 04/30/2025 10:00 AM EST Appointment [facility] 1 [address] [place] [address] 06/29/2025 12:30 PM EDT Clinical Support [facility] [address] [address] 06/29/2025 1:00 PM EDT Office Visit [facility] [address] [address] Danny Coon MD 6[address] [facility] 125 [place] [address] Scheduled Orders Name Type Priority Associated Diagnoses [...] documented as of this encounter Care Teams Fishing Vessel Operator Relationship Specialty Start Date End Date Sergey Oh MD PCP - General 11/13/21 Jean Mak MD 800 [facility] Cancer [address] [address] Surgeon Otolaryngology 11/21/21 Alice Chou, ROSHNI None None Registered Nurse 02/14/25 documented as of this encounter
--- OUTSIDE RECORDS SUMMARY | 2025-03-22 09:55 | XMS_ITS | Encounter Summary ---
Author Organization [facility] Address [address] [place] [address] Care Team Providers Care Geospatial Technician Name Role Phone Sergey Oh MD Primary Care Provider [phone] Jean Mak MD Unavailable [phone] Alice Chou RN Unavailable Unavailable Encounter Details Date Type Department Care Team (Late st Contact Info) Description 11/23/2021 Lab Requisition [facility] 800 [place] [address] Jean Mak MD 800 [facility] 2nd [place] [address] Malignant neoplasm of thyroid gland (CMS/HCC) Social History Tobacco Use Types Packs/Day Years Used Date Smoking Tobacco: Every Day Cigarettes 2 31 Started: 1994 Smokeless Tobacco: Former Comments:Vaping Alcohol [...] Upcoming Encounters Date Type Department Care Team ([facility] Contact Info) Description 03/30/2025 8:30 AM EST Appointment [facility] 2 [address] [place] [address] 2025 9:00 AM EST Appointment [facility] 2 [address] [place] [address] 04/14/2025 7:45 AM EST Clinical Support [facility] 800 [place] [address] 04/14/2025 8:00 AM EST Office Visit [facility] Multidisciplinary Oncology Clinic 800 [place] [address] Edison Skaggs MD 800 [place] [address] 04/14/2025 9:30 AM EST Appointment [facility] 800 [place] [address] 04/16/2025 10:30 AM EST Appointment [facility] [address] [place] [address] 04/28/2025 8:30 AM EST Appointment [facility] 800 [place] [address] 04/30/2025 10:00 AM EST Appointment [facility] 1 [address] [place] [address] 06/29/2025 12:30 PM EDT Clinical Support [facility] [address] [address] 06/29/2025 1:00 PM EDT Office Visit [facility] [address] [address] Danny Coon MD [address] [address] documented as of this encounter Procedures Procedure Name Priority Date/Time Associated Diagnosis Comments SURGICAL PATHOLOGY CONSULT Routine 11/23/2021 10:54 AM EDT Malignant neoplasm of thyroid gland (CMS/HCC) documented in this encounter Results * Surgical Pathology Consult (11/23/2021 10:54 AM EDT) Case Report Sugical Pathology Consult Case: [id number] Authorizing Provider: Jean Mak MD Collected: 11/23/2021 1054 Ordering Location: [facility] Lab Received: 11/23/2021 1055 Pathologist: Sona Montiel MD Specimen: Thyroid, [id number] 11/27/2021 5:00 PM EDT [email or web address] Final Diagnosis A. THYROID, RIGHT LOBE, HEMITHYROIDECTOMY : (OUTSIDE CASE #[id number], COLLECTED DATED: 09/09/2019) - PAPILLARY THYROID CARCINOMA, [...] FOR EXTRANODAL EXTENSION. 11/27/2021 5:00 PM EDT [email or web address] at 1700 EDT Synoptic Checklist THYROID [...] LEFT LOBE. 11/27/2021 5:00 PM EDT [facility] Clinical Information C73 - Malignant neoplasm of thyroid gland [ICD-10-CM] 11/27/2021 5:00 PM EDT [facility] Gross Description A. [id number] Received along with a corresponding pathology report from [facility] are 39 slide(s) labeled outside case: [id number] collected on 09/09/2019. 11/27/2021 5:00 PM EDT [...] ORDERABLES Fin al Result [facility] 800 [place] [address] documented in this encounter Visit Diagnoses Diagnosis Malignant neoplasm of thyroid gland (CMS/HCC) Malignant neoplasm of thyroid gland documented in this encounter Additional Health Concerns Assessment Noted Time A fall risk assessment has been complete d for the patient 11/23/2021 12:37 PM EDT documented as of this encounter Care Teams Geospatial Technician Relationship Specialty Start Date End Date Sergey Oh MD PCP - General 11/13/21 Jean Mak MD [address] [place] [address] [address] Surgeon Otolaryngology 11/21/21 Alice Chou, RN None None Registered Nurse 02/14/25 documented as of this encounter
--- OUTSIDE RECORDS SUMMARY | 2025-03-22 09:55 | XMS_ITS | Clinical Summary ---
Author Organization [facility] Address [address] [place] [address] [place] [address] Phone Care Team Providers Care Placement Interviewer Name Role Phone Riddhi Knox Dia Primary Care Provider [phone] Allergies No known active allergies Medications albuterol [...] Date Smoking Tobacco: Every Day Cigarettes 1 35 Started: 03/31/1990 Smokeless Tobacco: Never Alcohol Use [...] to complete this topic Insurance [address] [place] [address] [facility] MEDICAID FORMERLY [facility], [facility]–[address] [place] [address] MEDICAID Care Teams Placement Interviewer Relationship Specialty Start Date End Date Riddhi Knox [address] [place] [address] PCP - General Job Analysis Manager 03/01/13
--- OUTSIDE RECORDS SUMMARY | 2025-03-22 09:55 | XMS_ITS | Encounter Summary ---
Author Organization [facility] Address [address] [id number] Care Team Providers Care Smudger Name Role Phone Sergey Oh MD Primary Care Provider [phone] Jean Mak MD Unavailable [phone] Encounter Details Date Type Department Care Team (Late st Contact Info) Description 01/03/2025 Telephone [facility] [address] [place] [address] Edison Skaggs MD [address] [place] [phone] Social History Tobacco Use Types Packs/Day Years [...] optimal time of day to reach caller: [phone] Note: Please do not reply to this message. Follow-up communication and further actions as a result of this message need to be communicated with the patient directly, if the patient is not active onMyChart. If the patient is active on MyChart, they will receive notification of the communication/outcome via MyChart. documented in this encounter Plan of Treatment Upcoming Encounters Date Type Department Care Team (Late st Contact Info) Description 03/30/2025 8:30 AM EST Appointment [facility] 2 [address] [place] [address] 2025 9:00 AM EST Appointment [facility] 2 [address] [place] [address] 04/14/2025 7:45 AM EST Clinical Support [facility] 800 [place] [address] 04/14/2025 8:00 AM EST Office Visit [facility] 800 [place] [address] Edison Skaggs MD 800 [place] [address] 04/14/2025 9:30 AM EST Appointment [facility] [address] [place] [address] 04/16/2025 10:30 AM EST Appointment [facility] [address] [place] [address] 04/28/2025 8:30 AM EST Appointment [facility] [address] [place] [address] 04/30/2025 10:00 AM EST Appointment [facility] 1 [address] [place] [address] 06/29/2025 12:30 PM EDT Clinical Support [facility] [address] [address] 06/29/2025 1:00 PM EDT Office Visit [facility] [address] [address] Danny Coon MD [address] [place] [address] documented as of this encounter Visit Diagnoses [...] documented as of this encounter Care Teams Smudger Relationship Specialty Start Date End Date Sergey Oh MD PCP - General 11/13/21 Jean Mak MD 800 [facility] Cancer [address] [address] Surgeon Otolaryngology 11/21/21 documented as of this encounter
--- OUTSIDE RECORDS SUMMARY | 2025-03-22 09:55 | XMS_ITS | Encounter Summary ---
Author Organization [facility] Address [address] [place] [address] Care Team Providers Care Hourly Sales Staff Name Role Phone Pcp, No Primary Care Provider Unavailabl Sergey Oreilly MD Primary Care Provider [phone] Jean Mak MD Unavailable [phone] Alice Chou RN Unavailable Unavailable Encounter Details Date Type Department Care Team (Late Contact Info) Description 10/13/2018 Orders Only External Location 800 [place] [address] Provider, External Social History Tobacco Use Types [...] EST Appointment [facility] 2 [address] [place] [address] 2025 9:00 AM EST Appointment [facility] 2 [address] [place] [address] 04/14/2025 7:45 AM EST Clinical Support [facility] 800 [place] [address] 04/14/2025 8:00 AM EST Office Visit [facility] 800 [place] [address] Edison Skaggs MD 800 [place] [address] 04/14/2025 9:30 AM EST Appointment [facility] 800 [place] [address] 04/16/2025 10:30 AM EST Appointment [facility] 800 [place] [address] 04/28/2025 8:30 AM EST Appointment [facility] 800 [place] [address] 04/30/2025 10:00 AM EST Appointment [facility] 1 [address] [place] [address] 06/29/2025 12:30 PM EDT Clinical Support [facility] 800 [facility], 2nd [place] [address] 06/29/2025 1:00 PM EDT Office Visit [facility] [address] [address] Danny Coon MD [address] [place] [address] documented as of this encounter Procedures [...] on filedocumented in this encounter Care Teams Hourly Sales Staff Relationship Specialty Start Date End Date Pcp, No 800 [place] [address] PCP - General Family Medicine 03/31/21 11/12/21 Sergey Oh MD 800 [place], [place] [phone] PCP - General 11/13/21 Jean Mak MD 800 [facility] Cancer [address] [address] Surgeon Otolaryngology 11/21/21 Alice Chou RN None None Registered Nurse 02/14/25 documented as of this encounter
--- OUTSIDE RECORDS SUMMARY | 2025-03-22 09:55 | XMS_ITS | Encounter Summary ---
Author Organization [facility] Address [address] [place] [address] Care Team Providers Care Carpenter Streetcar Name Role Phone Pcp, No Primary Care Provider Unavailabl Sergey Oreilly MD Primary Care Provider [phone] Jean Mak MD Unavailable [phone] Alice Chou RN Unavailable Unavailable Encounter Details Date Type Department Care Team (Late Contact Info) Description 02/12/2017 Orders Only External Location 800 [place] [address] Provider, External Social History Tobacco Use Types [...] EST Appointment [facility] 2 [address] [place] [address] 2025 9:00 AM EST Appointment [facility] 2 [address] [place] [address] 04/14/2025 7:45 AM EST Clinical Support [facility] 800 [place] [address] 04/14/2025 8:00 AM EST Office Visit [facility] 800 [place] [address] Edison Skaggs MD 800 [place] [address] 04/14/2025 9:30 AM EST Appointment [facility] 800 [place] [address] 04/16/2025 10:30 AM EST Appointment [facility] 800 [place] [address] 04/28/2025 8:30 AM EST Appointment [facility] 800 [place] [address] 04/30/2025 10:00 AM EST Appointment [facility] 1 [address] [place] [address] 06/29/2025 12:30 PM EDT Clinical Support [facility] 800 [facility], 2nd [place] [address] 06/29/2025 1:00 PM EDT Office Visit [facility] [address] [address] Danny Coon MD [address] [place] [address] documented as of this encounter Procedures [...] on filedocumented in this encounter Care Teams Carpenter Streetcar Relationship Specialty Start Date End Date Pcp, No 800 [place] [address] PCP - General Family Medicine 03/31/21 11/12/21 Sergey Oh MD 800 [place] [address] PCP - General 11/13/21 Jean Mak MD 800 [facility] Cancer [address] [address] Surgeon Otolaryngology 11/21/21 Alice Chou RN None None Registered Nurse 02/14/25 documented as of this encounter
--- OUTSIDE RECORDS SUMMARY | 2025-03-22 09:56 | XMS_ITS | Encounter Summary ---
Author Organization [facility] Address [address] [place] [address] Care Team Providers Care Magnetic Resonance Technologist Name Role Phone Sergey Oh MD Primary Care Provider [phone] Jean Mak MD Unavailable [phone] Alice Chou RN Unavailable Unavailable Encounter Details Date Type Department Care Team (Latest Contact Info) Description 03/10/2025 Travel Social History Tobacco Use Types Packs/Day [...] drink first t mono in the morning (EYE-LOCOMOTIVE LUBRICATING SYSTEMS CLERK) to steady your nerves or to get [...] EST Appointment [facility] 2 [address] [place] [address] 2025 9:00 AM EST Appointment [facility] 2 [address] [place] [address] 04/14/2025 7:45 AM EST Clinical Support [facility] Multidisciplinary Oncology Clinic 800 [place] [address] 04/14/2025 8:00 AM EST Office Visit [facility] Multidisciplinary Oncology Clinic 800 [place] [address] Edison Skaggs MD 800 [place] [address] 04/14/2025 9:30 AM EST Appointment [facility] 800 [place] [address] 04/16/2025 10:30 AM EST Appointment [facility] 800 [place] [address] 04/28/2025 8:30 AM EST Appointment [facility] 800 [place] [address] 04/30/2025 10:00 AM EST Appointment [facility] 1 [address] [place] [address] 06/29/2025 12:30 PM EDT Clinical Support [facility] [address] [address] 06/29/2025 1:00 PM EDT Office Visit [facility] [address] [phone] Danny Coon MD [address] [place] [address] documented as of this encounter Visit Diagnoses [...] documented as of this encounter Care Teams Magnetic Resonance Technologist Relationship Specialty Start Date End Date Sergey Oh MD PCP - General 11/13/21 Jean Mak MD 800 [facility] 2nd [place] [address] Surgeon Otolaryngology 11/21/21 Alice Chou, RN None None Registered Nurse 02/14/25 documented as of this encounter
--- OUTSIDE RECORDS SUMMARY | 2025-03-22 09:56 | XMS_ITS | Encounter Summary ---
Author Organization Healthcare Address [address] [place] [address] Care Team Providers Care Section Plotter Operator Name Role Phone Sergey Oh MD Primary Care Provider [phone] Jean Mak MD Unavailable [phone] Alice Chou RN Unavailable Unavailable Encounter Details Date Type Department Care Team (Late Contact Info) Description 12/06/2023 Orders Only External Location [address] [place] [phone] Provider, External Social History Tobacco Use Types [...] Info) Description 03/30/2025 8:30 AM EST Appointment [facility] Infusion Clinic 2 [address] [place] [address] 2025 9:00 AM EST Appointment [facility] Infusion Clinic 2 [address] [place] [address] 04/14/2025 7:45 AM EST Clinical Support [facility] Multidisciplinary Oncology Clinic [address] [place] [address] 04/14/2025 8:00 AM EST Office Visit [facility] Multidisciplinary Oncology Clinic [address] [place] [address] Edison Skaggs MD [address] [place] [address] 04/14/2025 9:30 AM EST Appointment [facility] [address] [place] [address] 04/16/2025 10:30 AM EST Appointment [facility] [address] [place] [address] 04/28/2025 8:30 AM EST Appointment [facility] [address] [place] [address] 04/30/2025 10:00 AM EST Appointment [facility] Infusion Clinic 1 [address] [place] [address] 06/29/2025 12:30 PM EDT Clinical Support [facility] [address] [address] 06/29/2025 1:00 PM EDT Office Visit [facility] [address] [address] Danny Coon MD [address] [place] [address] documented as of this encounter Procedures [...] documented as of this encounter Care Teams Section Plotter Operator Relationship Specialty Start Date End Date Sergey Oh MD PCP - General 11/13/21 Jean Mak MD [address] [place] [address] [address] Surgeon Otolaryngology 11/21/21 Alice Chou RN None None Registered Nurse 02/14/25 documented as of this encounter
--- OUTSIDE RECORDS SUMMARY | 2025-03-22 09:56 | XMS_ITS | Encounter Summary ---
Author Organization Healthcare Address [address] [place] [address] Care Team Providers Care Statistician Name Role Phone Sergey Oh MD Primary Care Provider [phone] Jean Mak MD Unavailable [phone] Alice Chou RN Unavailable Unavailable Encounter Details Date Type Department Care Team (Late Contact Info) Description 12/13/2023 Orders Only External Location [address] [place] [phone] Provider, External Social History Tobacco Use Types [...] Info) Description 03/30/2025 8:30 AM EST Appointment [facility] Infusion Clinic 2 [address] [place] [address] 2025 9:00 AM EST Appointment [facility] 2 [address] [place] [address] 04/14/2025 7:45 AM EST Clinical Support [facility] Multidisciplinary Oncology Clinic [address] [place] [address] 04/14/2025 8:00 AM EST Office Visit [facility] [address] [place] [address] Edison Skaggs MD 800 [place] [address] 04/14/2025 9:30 AM EST Appointment [facility] [address] [place] [address] 04/16/2025 10:30 AM EST Appointment [facility] [address] [place] [address] 04/28/2025 8:30 AM EST Appointment [facility] [address] [place] [address] 04/30/2025 10:00 AM EST Appointment [facility] Infusion Clinic 1 [address] [place] [address] 06/29/2025 12:30 PM EDT Clinical Support [facility] [address] [address] 06/29/2025 1:00 PM EDT Office Visit [facility] [address] [address] Danny Coon MD [address] [place] [phone] documented as of this encounter Procedures Procedure Name Priority Date/Time Associated Diagnosis Comments XR OUTSIDE IMAGES 12/13/2023 10:49 AM EDT documented in this encounter Results * XR OUTSIDE IMAGES (12/13/2023 10:49 AM EDT) Anatomical Region Laterality Modality Radiographic Jeniffer ging 12/13/2023 10:4 9 AM EDT External Provider IMG XR PROCEDURES [...] documented as of this encounter Care Teams Statistician Relationship Specialty Start Date End Date Sergey Oh MD PCP - General 11/13/21 Jean Mak MD 800 [facility] Cancer [address] [address] Surgeon Otolaryngology 11/21/21 Alice Chou RN None None Registered Nurse 02/14/25 documented as of this encounter
--- OUTSIDE RECORDS SUMMARY | 2025-03-22 09:56 | XMS_ITS | Encounter Summary ---
Author Organization Healthcare Address [address] [place] [id number] Care Team Providers Care Culture Room Worker Name Role Phone Sergey Oh MD Primary Care Provider Jean Mak MD Unavailable [phone] Alice Chou RN Unavailable Unavailable Encounter Details Date Type Department Care Team (Late st Contact Info) Description 01/08/2024 Lab Requisition [facility] [address] [place] [address] Broderick Taylor MD 800 [facility] [address] [place] [address] Polyp of colon Social History [...] Upcoming Encounters Date Type Department Care Team ([facility] Contact Info) Description 03/30/2025 8:30 AM EST Appointment [facility] 2 [address] [place] [address] 2025 9:00 AM EST Appointment [facility] 2 [address] [place] [address] 04/14/2025 7:45 AM EST Clinical Support [facility] [address] [place] [address] 04/14/2025 8:00 AM EST Office Visit [facility] [address] [place] [address] Edison Skaggs MD 800 [place] [address] 04/14/2025 9:30 AM EST Appointment [facility] [address] [place] [address] 04/16/2025 10:30 AM EST Appointment [facility] [address] [place] [address] 04/28/2025 8:30 AM EST Appointment [facility] [address] [place] [address] 04/30/2025 10:00 AM EST Appointment [facility] 1 [address] [place] [address] 06/29/2025 12:30 PM EDT Clinical Support [facility] [address] [address] 06/29/2025 1:00 PM EDT Office Visit [facility] [address] [address] Danny Coon MD [address] [phone] documented as of this encounter Procedures Procedure Name Priority Date/Time Associated Diagnosis Comments SURGICAL PATHOLOGY CONSULT Routine 01/08/2024 10:42 AM EDT Polyp of colon documented in this encounter Results * Surgical Pathology Consult (01/08/2024 10:42 AM EDT) Case Report Sugical Pathology Consult Case: [id number] Authorizing Provider: Broderick Taylor MD Collected: 01/08/20241041 Ordering Location: [facility] Lab Received: 01/08/20241041 Pathologist: Dimas Becker DO Specimen: Sigmoid Colon, [id number] 1:22 PM EDT [facility] Final Diagnosis OUTSIDE SLIDES; [id number], A-C; 12/12/23 A. COLON, POLYP AT 25 [...] PMS2, MSH2 AND MSH6). 1:22 PM EDT [facility] at 1321 EDT Clinical Information K63.5 - Polyp of colon [ICD-10-CM] 1:22 PM EDT [facility] Special and Immunohistochemical Stains Special [...] at the [facility], [address] [place] [address]. All tests reported here, except those addressing [...] negativity on decalcified specimens. 1:22 PM EDT [facility] Gross Description A. [id number] Received along with a corresponding pathology report from [facility] ([place]) are 47 slide(s) labeled outside case: [id number] collected on 12/12/23. Also received 2 blocks as noted per Dr. Becker on 01/15/2024. 1:22 PM EDT [facility] Intradepartmental Consultation with Agreement Dr. Palmer (vascular invasion, staging and mesenteric margin). 1:22 PM EDT [facility] Note: A resident was involved in the service. I attest I examined the relevant preparations for the specimens and confirmed the diagnosis or interpretation. 1:22 PM EDT [facility] Tissue Sigmoid colon structure / Unknown 01/08/2024 10:42 AM EDT 01/08/2024 10:42 AM EDT Broderick Taylor MD LAB PATHOLOGY ORDERABLES Fin al Result [facility] [address] [place] [address] documented in this encounter Visit Diagnoses Diagnosis [...] documented as of this encounter Care Teams Culture Room Worker Relationship Specialty Start Date End Date Sergey Oh MD PCP - General 11/13/21 Jean Mak MD 800 [facility] Cancer [address] [address] Surgeon Otolaryngology 11/21/21 Alice Chou, RN None None Registered Nurse 02/14/25 documented as of this encounter
--- OUTSIDE RECORDS SUMMARY | 2025-03-22 09:56 | XMS_ITS | Encounter Summary ---
Author Organization Healthcare Address [address] [place] [address] Care Team Providers Care Trimming Department Blocker Name Role Phone Sergey Oh MD Primary Care Provider [phone] Jean Mak MD Unavailable [phone] Alice Chou RN Unavailable Unavailable Encounter Details Date Type Department Care Team (Late Contact Info) Description 12/06/2023 Orders Only External Location [address] [place] [phone] Provider, External Social History Tobacco Use Types [...] Info) Description 03/30/2025 8:30 AM EST Appointment [facility] Infusion Clinic 2 [address] [place] [address] 2025 9:00 AM EST Appointment [facility] Infusion Clinic 2 [address] [place] [address] 04/14/2025 7:45 AM EST Clinical Support [facility] Multidisciplinary Oncology Clinic [address] [place] [address] 04/14/2025 8:00 AM EST Office Visit [facility] Multidisciplinary Oncology Clinic [address] [place] [address] Edison Skaggs MD 800 [place] [address] 04/14/2025 9:30 AM EST Appointment [facility] [address] [place] [address] 04/16/2025 10:30 AM EST Appointment [facility] [address] [place] [address] 04/28/2025 8:30 AM EST Appointment [facility] [address] [place] [address] 04/30/2025 10:00 AM EST Appointment [facility] Infusion Clinic 1 [address] [place] [address] 06/29/2025 12:30 PM EDT Clinical Support [facility] [address] [address] 06/29/2025 1:00 PM EDT Office Visit [facility] [address] [address] Danny Coon MD [address] [place] [address] documented as of this encounter Procedures [...] documented as of this encounter Care Teams Trimming Department Blocker Relationship Specialty Start Date End Date Sergey Oh MD PCP - General 11/13/21 Jean Mak MD 800 [facility] Cancer [address] [address] Surgeon Otolaryngology 11/21/21 Alice Chou RN None None Registered Nurse 02/14/25 documented as of this encounter
--- OUTSIDE RECORDS SUMMARY | 2025-03-22 09:56 | XMS_ITS | Encounter Summary ---
Author Organization Healthcare Address [address] [place] [address] Care Team Providers Care Attendant [facility] Name Role Phone Sergey Oh MD Primary Care Provider [phone] Jean Mak MD Unavailable [phone] Alice Chou RN Unavailable Unavailable Encounter Details Date Type Department Care Team (Latest Contact Info) Description 03/09/2025 Travel Social History Tobacco Use Types Packs/Day [...] drink first t mono in the morning (EYE-GREENHOUSE OR NURSERY TRANSPLANTER) to steady your nerves or to get [...] as of this encounter Functional Status * Calculated C-SSRS Risk Score (Lifetime/Recent) Answer Date of Assessment Author No Risk Indicated 03/09/2025 6:36 AM Christo Barney RN * Question Answer Date of Assessment Author 1. Wish to be (Past 1 Month) No 025 6:36 AM Dallin Barney RN 2. Non-Specific Active Suici juanis Thoughts (Past 1 Month) No 03/09/2025 6:36 AM Dallin Barney RN 6. Suicidal Behavior (Lifetime) No 6:36 AM Dallin Barney RN documented as of this encounter Plan of Treatment Upcoming Encounters Date Type Department Care Team (Late st Contact Info) Description 03/30/2025 8:30 AM EST Appointment [facility] Infusion Clinic 2 [address] [place] [address] 2025 9:00 AM EST Appointment [facility] Infusion Clinic 2 [address] [place] [address] 04/14/2025 7:45 AM EST Clinical Support [facility] Multidisciplinary Oncology Clinic [address] [place] [address] 04/14/2025 8:00 AM EST Office Visit [facility] Multidisciplinary Oncology Clinic [address] [place] [address] Edison Skaggs MD 800 [place] [address] 04/14/2025 9:30 AM EST Appointment [facility] [address] [place] [address] 04/16/2025 10:30 AM EST Appointment [facility] [address] [place] [address] 04/28/2025 8:30 AM EST Appointment [facility] [address] [place] [address] 04/30/2025 10:00 AM EST Appointment [facility] In[facility] Clinic 1 [address] [place] [address] 06/29/2025 12:30 PM EDT Clinical Support [facility] [address] [address] 06/29/2025 1:00 PM EDT Office Visit [facility] [address] [address] Danny Coon MD [address] [place] [phone] documented as of this encounter Visit Diagnoses [...] documented as of this encounter Care Teams Attendant [facility] Relationship Specialty Start Date End Date Sergey Oh MD PCP - General 11/13/21 Jaen Mak MD 800 [facility] [address] [place] [phone] Surgeon Otolaryngology 11/21/21 Alice Chou RN None None Registered Nurse 02/14/25 documented as of this encounter
--- OUTSIDE RECORDS SUMMARY | 2025-03-22 09:56 | XMS_ITS | Encounter Summary ---
Author Organization Healthcare Address [address] [place] [address] Care Team Providers Care Hotel Lobby Concierge Name Role Phone Sergey Oh MD Primary Care Provider [phone] Jean Mak MD Unavailable [phone] Alice Chou RN Unavailable Unavailable Encounter Details Date Type Department Care Team (Late st Contact Info) Description 12/06/2023 Orders Only External Location [address] [place] [address] Daryl Pina MD [address] [place] [address] Social History Tobacco Use Types Packs/Day [...] Encounters Date Type Department Care Team ([facility] Contact Info) Description 03/30/2025 8:30 AM EST Appointment [facility] 2 [address] [place] [address] 2025 9:00 AM EST Appointment [facility] 2 [address] [place] [address] 04/14/2025 7:45 AM EST Clinical Support [facility] [address] [place] [address] 04/14/2025 8:00 AM EST Office Visit [facility] [address] [place] [address] Edison Skaggs MD 800 [place] [address] 04/14/2025 9:30 AM EST Appointment [facility] [address] [place] [address] 04/16/2025 10:30 AM EST Appointment [facility] [address] [place] [address] 04/28/2025 8:30 AM EST Appointment [facility] [address] [place] [address] 04/30/2025 10:00 AM EST Appointment [facility] 1 [address] [place] [address] 06/29/2025 12:30 PM EDT Clinical Support [facility] 800 [facility] [address] [place] [address] 06/29/2025 1:00 PM EDT Office Visit [facility] [address] [address] Danny Coon MD [address] [address] documented as of this encounter Procedures Procedure [...] documented as of this encounter Care Teams Hotel Lobby Concierge Relationship Specialty Start Date End Date Sergey Oh MD PCP - General 11/13/21 Jean Mak MD 800 [facility] Cancer [address] [address] Surgeon Otolaryngology 11/21/21 Alice Chou, RN None None Registered Nurse 02/14/25 documented as of this encounter
--- OUTSIDE RECORDS SUMMARY | 2025-03-22 09:56 | XMS_ITS | Encounter Summary ---
Author Organization Healthcare Address [address] [place] [address] Care Team Providers Care Cylinder Dyer Name Role Phone Sergey Oh MD Primary Care Provider [phone] Jean Mak MD Unavailable [phone] Alice Chou RN Unavailable Unavailable Encounter Details Date Type Department Care Team (Late Contact Info) Description 12/11/2023 Orders Only External Location 800 [place] [phone] Provider, External Social History Tobacco Use Types [...] Description 03/30/2025 8:30 AM EST Appointment [facility] Infusion Clinic 2 [address] [place] [address] 2025 9:00 AM EST Appointment [facility] Infusion Clinic 2 [address] [place] [address] 04/14/2025 7:45 AM EST Clinical Support [facility] Multidisciplinary Oncology Clinic 800 [place] [address] 04/14/2025 8:00 AM EST Office Visit [facility] Multidisciplinary Oncology Clinic [address] [place] [address] Edison Skaggs MD 800 [place] [address] 04/14/2025 9:30 AM EST Appointment [facility] 800 [place] [address] 04/16/2025 10:30 AM EST Appointment [facility] [address] [place] [address] 04/28/2025 8:30 AM EST Appointment [facility] [address] [place] [address] 04/30/2025 10:00 AM EST Appointment [facility] Infusion Clinic 1 [address] [place] [address] 06/29/2025 12:30 PM EDT Clinical Support [facility] [address] [address] 06/29/2025 1:00 PM EDT Office Visit [facility] [address] [address] Danny Coon MD [address] [place] [address] documented as of this encounter Procedures [...] documented as of this encounter Care Teams Cylinder Dyer Relationship Specialty Start Date End Date Sergey Oh MD PCP - General 11/13/21 Jean Mak MD 800 [facility] Cancer [address] [address] Surgeon Otolaryngology 11/21/21 Alice Chou RN None None Registered Nurse 02/14/25 documented as of this encounter
--- OUTSIDE RECORDS SUMMARY | 2025-03-22 09:56 | XMS_ITS | Encounter Summary ---
Author Organization Healthcare Address [address] [place] [address] Care Team Providers Care Psychiatric Social Worker Supervisor Name Role Phone Sergey Oh MD Primary Care Provider [phone] Jean Mak MD Unavailable [phone] Alice Chou RN Unavailable Unavailable Encounter Details Date Type Department Care Team (Late st Contact Info) Description 02/12/2025 Orders Only External Location [address] [place] [phone] Provider, External Social History Tobacco Use Types [...] drink first t mono in the morning (EYE-DEVELOPER EVANGELIST) to steady your nerves or to get [...] as of this encounter Functional Status * Question Answer Date of Assessment Author Kanu Environmental surveillance 02/14/2025 2:0 0 PM Caterina [place], ROSHNI * Calculated C-SSRS Risk Score (Lifetime/Recent) Answer Date of Assessment Author No Risk Indicated 02/14/2025 7:20 AM Caterina Ferguson, ROSHNI * Question Answer Date of Assessment Author 1. Wish to be (Past 1 Month) No 02/14/2025 7:20 AM Vishnu [place] RN 2. Non-Specific Active Suici juanis Thoughts (Past 1 Month) No 02/14/2025 7:20 AM Ryan [place], ROSHNI 6. Suicidal Behavior (Lifetime) No 7:20 AM Caterina [place], ROSHNI documented as of this encounter Mental Status * Question Answer Entry Date Author Kanu Environmental surveillance 02/14/2025 2:0 0 PM Caterina [place], RN documented in this encounter Plan of Treatment Upcoming Encounters Date Type Department Care Team (Late st Contact Info) Description 03/30/2025 8:30 AM EST Appointment [facility] 2 [address] [place] [address] 2025 9:00 AM EST Appointment [facility] 2 [address] [place] [address] 04/14/2025 7:45 AM EST Clinical Support [facility] [address] [place] [address] 04/14/2025 8:00 AM EST Office Visit [facility] [address] [place] [address] Edison Skaggs MD 800 [place] [address] 04/14/2025 9:30 AM EST Appointment [facility] [address] [place] [address] 04/16/2025 10:30 AM EST Appointment [facility] [address] [place] [address] 04/28/2025 8:30 AM EST Appointment [facility] [address] [place] [address] 04/30/2025 10:00 AM EST Appointment [facility] 1 [address] [place] [address] 06/29/2025 12:30 PM EDT Clinical Support [facility] [address] [address] 06/29/2025 1:00 PM EDT Office Visit [facility] [address] [address] [place] [address] [place] [address] documented as of this encounter Procedures Procedure Name Priority Date/Time Associated Diagnosis Comments CT OUTSIDE IMAGES 02/12/2025 12:08 AM EST documented in this encounter Results * CT OUTSIDE IMAGES (02/12/2025 12:08 AM EST) Anatomical Region Laterality Modality Computed Tomogra phy 02/12/2025 12:0 8 AM EST us External Provider IMG CT PROCEDURES Edited Resul t - Final documented in this encounter Visit Diagnoses Not [...] documented as of this encounter Care Teams Psychiatric Social Worker Supervisor Relationship Specialty Start Date End Date Sergey Oh MD PCP - General 11/13/21 Jean Mak MD [address] [place] [address] [address] Surgeon Otolaryngology 11/21/21 Alice Chou, ROSHNI None None Registered Nurse 02/14/25 documented as of this encounter
--- OUTSIDE RECORDS SUMMARY | 2025-03-22 09:56 | XMS_ITS | Encounter Summary ---
Author Organization Healthcare Address [address] [place] [address] Care Team Providers Care Tree Chipper Name Role Phone Sergey Oh MD Primary Care Provider [phone] Jean Mak MD Unavailable [phone] Alice Chou RN Unavailable Unavailable Encounter Details Date Type Department Care Team (Late Contact Info) Description 12/13/2023 Orders Only External Location [address] [place] [phone] Provider, External Social History Tobacco Use Types [...] 8:30 AM EST Appointment [facility] Infusion Clinic 2 [address] [place] [address] 2025 9:00 AM EST Appointment [facility] 2 [address] [place] [address] 04/14/2025 7:45 AM EST Clinical Support [facility] Multidisciplinary Oncology Clinic [address] [place] [address] 04/14/2025 8:00 AM EST Office Visit [facility] [address] [place] [address] Edison Skaggs MD 800 [place] [address] 04/14/2025 9:30 AM EST Appointment [facility] [address] [place] [address] 04/16/2025 10:30 AM EST Appointment [facility] [address] [place] [address] 04/28/2025 8:30 AM EST Appointment [facility] [address] [place] [address] 04/30/2025 10:00 AM EST Appointment [facility] Infusion Clinic 1 [address] [place] [address] 06/29/2025 12:30 PM EDT Clinical Support [facility] [address] [address] 06/29/2025 1:00 PM EDT Office Visit [facility] [address] [address] Danny Coon MD [address] [place] [phone] documented as of this encounter Procedures Procedure [...] documented as of this encounter Care Teams Tree Chipper Relationship Specialty Start Date End Date Sergey Oh MD PCP - General 11/13/21 Jean Mak MD 800 [facility] Cancer [address] [address] Surgeon Otolaryngology 11/21/21 Alice Chou, ROSHNI None None Registered Nurse 02/14/25 documented as of this encounter
--- OUTSIDE RECORDS SUMMARY | 2025-03-22 09:57 | XMS_ITS | Encounter Summary ---
Author Organization Healthcare Address [address] [place] [address] Care Team Providers Care Ice Skater Name Role Phone Pcp, No Primary Care Provider Unavailabl Sergey Oreilly MD Primary Care Provider [phone] Jean Mak MD Unavailable [phone] Alice Chou RN Unavailable Unavailable Encounter Details Date Type Department Care Team (Late Contact Info) Description 08/30/2019 Orders Only External Location 800 [place] [address] Provider, External Social History Tobacco Use Types [...] EST Appointment [facility] [address] [place] [address] 2025 9:00 AM EST Appointment [facility] [address] [place] [address] 04/14/2025 7:45 AM EST Clinical Support [facility] [address] [place] [address] 04/14/2025 8:00 AM EST Office Visit [facility] [address] [place] [address] Edison Skaggs MD 800 [place] [address] 04/14/2025 9:30 AM EST Appointment [facility] [address] [place] [address] 04/16/2025 10:30 AM EST Appointment [facility] [address] [place] [address] 04/28/2025 8:30 AM EST Appointment [facility] [address] [place] [address] 04/30/2025 10:00 AM EST Appointment [facility] 1 [address] [place] [address] 06/29/2025 12:30 PM EDT Clinical Support [facility] 800 [facility], 2nd [place] [address] 06/29/2025 1:00 PM EDT Office Visit [facility] [address] [address] Danny Coon MD [address] [place] [address] documented as of this encounter Procedures [...] on filedocumented in this encounter Care Teams Ice Skater Relationship Specialty Start Date End Date Pcp, No 800 [place] [address] PCP - General Family Medicine 03/31/21 11/12/21 Sergey Oh MD 800 [place], [place] [id number] PCP - General 11/13/21 Jean Mak MD 800 [facility] Cancer [address] [address] Surgeon Otolaryngology 11/21/21 Alice Chou RN None None Registered Nurse 02/14/25 documented as of this encounter
--- OUTSIDE RECORDS SUMMARY | 2025-03-22 09:57 | XMS_ITS | Encounter Summary ---
Author Organization Healthcare Address [address] [place] [address] Care Team Providers Care High Man Name Role Phone Pcp, No Primary Care Provider Unavailabl Sergey Oreilly MD Primary Care Provider [phone] Jean Mak MD Unavailable [phone] Alice Chou RN Unavailable Unavailable Encounter Details Date Type Department Care Team (Late Contact Info) Description 11/19/2019 Orders Only External Location [address] [place] [id number] Provider, External Social History Tobacco Use Types [...] EST Appointment [facility] [address] [place] [address] 2025 9:00 AM EST Appointment [facility] 2 [address] [place] [address] 04/14/2025 7:45 AM EST Clinical Support [facility] [address] [place] [address] 04/14/2025 8:00 AM EST Office Visit [facility] [address] [place] [address] Edison Skaggs MD 800 [place] [address] 04/14/2025 9:30 AM EST Appointment [facility] [address] [place] [address] 04/16/2025 10:30 AM EST Appointment [facility] [address] [place] [address] 04/28/2025 8:30 AM EST Appointment [facility] [address] [place] [address] 04/30/2025 10:00 AM EST Appointment [facility] 1 [address] [place] [address] 06/29/2025 12:30 PM EDT Clinical Support [facility] 800 [facility], 2nd [place] [address] 06/29/2025 1:00 PM EDT Office Visit [facility] [address] [address] Danny Coon MD [address] [place] [address] documented as of this encounter Procedures [...] on filedocumented in this encounter Care Teams High Man Relationship Specialty Start Date End Date Pcp, No 800 [place] [address] PCP - General Family Medicine 03/31/21 11/12/21 Sergey Oh MD 800 [place] [address] PCP - General 11/13/21 Jean Mak MD 800 [facility] Cancer [address] [address] Surgeon Otolaryngology 11/21/21 Aliec Chou RN None None Registered Nurse 02/14/25 documented as of this encounter
--- OUTSIDE RECORDS SUMMARY | 2025-03-22 09:57 | XMS_ITS | Encounter Summary ---
Author Organization Healthcare Address [address] [place] [address] Care Team Providers Care Financial Services Officer Name Role Phone Sergey Oh MD Primary Care Provider [phone] Jean Mak MD Unavailable [phone] Alice Chou RN Unavailable Unavailable Encounter Details Date Type Department Care Team (Latest Contact Info) Description 02/21/2025 Travel Social History Tobacco Use Types Packs/Day [...] drink first t mono in the morning (EYE-LIMOUSINE AND HEARSE UPHOLSTERER) to steady your nerves or to get [...] Upcoming Encounters Date Type Department Care Team ([facility] Contact Info) Description 03/30/2025 8:30 AM EST Appointment [facility] [address] [place] [address] 2025 9:00 AM EST Appointment [facility] 2 [address] [place] [address] 04/14/2025 7:45 AM EST Clinical Support [facility] Multidisciplinary Oncology Clinic 800 [place] [address] 04/14/2025 8:00 AM EST Office Visit [facility] [address] [place] [address] Edison Skaggs MD 800 [place] [address] 04/14/2025 9:30 AM EST Appointment [facility] [address] [place] [address] 04/16/2025 10:30 AM EST Appointment [facility] [address] [place] [address] 04/28/2025 8:30 AM EST Appointment [facility] [address] [place] [address] 04/30/2025 10:00 AM EST Appointment [facility] 1 [address] [place] [address] 06/29/2025 12:30 PM EDT Clinical Support [facility] 800 [facility], 2nd [place] [address] 06/29/2025 1:00 PM EDT Office Visit [facility] 800 [facility], 2nd [place] [address] Danny Coon MD 2195 [facility] 125 [place] [address] documented as of this encounter Visit Diagnoses [...] as of this encounter Care Teams Financial Services Officer Relationship Specialty Start Date End Date Sergey Oh MD PCP - General 11/13/21 Jean Mak MD 800 [facility] 2nd [place] [address] Surgeon Otolaryngology 11/21/21 Alice Chou, ROSHNI None None Registered Nurse 02/14/25 documented as of this encounter
--- OUTSIDE RECORDS SUMMARY | 2025-03-22 09:57 | XMS_ITS | Encounter Summary ---
Author Organization Healthcare Address [address] [place] [address] Care Team Providers Care Test Consultant Name Role Phone Sergey Oh MD Primary Care Provider [phone] Jean Mak MD Unavailable [phone] Alice Chou RN Unavailable Unavailable Encounter Details Date Type Department Care Team (Latest Contact Info) Description 03/17/2025 Travel Social History Tobacco Use Types Packs/Day [...] drink first t mono in the morning (EYE-OPEN SOAPER TENDER) to steady your nerves or to get [...] Upcoming Encounters Date Type Department Care Team ([facility] Contact Info) Description 03/30/2025 8:30 AM EST Appointment [facility] [address] [place] [address] 2025 9:00 AM EST Appointment [facility] 2 [address] [place] [address] 04/14/2025 7:45 AM EST Clinical Support [facility] Multidisciplinary Oncology Clinic 800 [place] [address] 04/14/2025 8:00 AM EST Office Visit [facility] 800 [place] [address] Edison Skaggs MD 800 [place] [address] 04/14/2025 9:30 AM EST Appointment [facility] [address] [place] [address] 04/16/2025 10:30 AM EST Appointment [facility] [address] [place] [address] 04/28/2025 8:30 AM EST Appointment [facility] [address] [place] [address] 04/30/2025 10:00 AM EST Appointment [facility] 1 [address] [place] [address] 06/29/2025 12:30 PM EDT Clinical Support [facility] 800 [facility], 2nd [place] [address] 06/29/2025 1:00 PM EDT Office Visit [facility] 800 [facility], 2nd [place] [address] Danny Coon MD 2195 [facility] 125 [place] [address] documented as of this encounter Visit Diagnoses [...] documented as of this encounter Care Teams Test Consultant Relationship Specialty Start Date End Date Sergey Oh MD PCP - General 11/13/21 Jean Mak MD 800 [facility] [address] [place] [address] Surgeon Otolaryngology 11/21/21 Alice Chou, ROSHNI None None Registered Nurse 02/14/25 documented as of this encounter
--- OUTSIDE RECORDS SUMMARY | 2025-03-22 09:57 | XMS_ITS | Encounter Summary ---
Author Organization Healthcare Address [address] [place] [address] Care Team Providers Care Hydrology Professor Name Role Phone Pcp, No Primary Care Provider Unavailabl Sergey Oreilly MD Primary Care Provider [phone] Jean Mak MD Unavailable [phone] Alice Chou RN Unavailable Unavailable Encounter Details Date Type Department Care Team (Late Contact Info) Description 11/24/2019 Orders Only External Location 800 [place] [address] Provider, External Social History Tobacco Use Types [...] EST Appointment [facility] 2 [address] [place] [address] 2025 9:00 AM EST Appointment [facility] 2 [address] [place] [address] 04/14/2025 7:45 AM EST Clinical Support [facility] [address] [place] [address] 04/14/2025 8:00 AM EST Office Visit [facility] [address] [place] [address] Edison Skaggs MD 800 [place] [address] 04/14/2025 9:30 AM EST Appointment [facility] [address] [place] [address] 04/16/2025 10:30 AM EST Appointment [facility] [address] [place] [address] 04/28/2025 8:30 AM EST Appointment [facility] [address] [place] [address] 04/30/2025 10:00 AM EST Appointment [facility] 1 [address] [place] [address] 06/29/2025 12:30 PM EDT Clinical Support [facility] 800 [facility], 2nd [place] [address] 06/29/2025 1:00 PM EDT Office Visit [facility] [address] [address] Danny Coon MD [address] [place] [address] documented as of this encounter Procedures [...] on filedocumented in this encounter Care Teams Hydrology Professor Relationship Specialty Start Date End Date Pcp, No 800 [place] [address] PCP - General Family Medicine 03/31/21 11/12/21 Sergey Oh MD 800 [place] [address] PCP - General 8/16/22 Jean Mak MD 800 [facility] Cancer [address] [address] Surgeon Otolaryngology 11/21/21 Alice Chou, RN None None Registered Nurse 02/14/25 documented as of this encounter
--- OUTSIDE RECORDS SUMMARY | 2025-03-22 09:57 | XMS_ITS | Encounter Summary ---
Author Organization Healthcare Address [address] [place] [address] Care Team Providers Care Making Line Worker Name Role Phone Pcp, No Primary Care Provider Unavailabl Sergey Oreilly MD Primary Care Provider Jean Mak MD Unavailable [phone] Alice Chou RN Unavailable Unavailable Encounter Details Date Type Department Care Team (Late st Contact Info) Description 09/20/2021 Orders Only External Location 800 [place] [address] Cristian Griffith MD [address] [place] [address] Social History Tobacco Use Types Packs/Day Years [...] EST Appointment [facility] 2 [address] [place] [address] 2025 9:00 AM EST Appointment [facility] 2 [address] [place] [address] 04/14/2025 7:45 AM EST Clinical Support [facility] 800 [place] [address] 04/14/2025 8:00 AM EST Office Visit [facility] 800 [place] [address] Edison Skaggs MD 800 [place] [address] 04/14/2025 9:30 AM EST Appointment [facility] 800 [place] [address] 04/16/2025 10:30 AM EST Appointment [facility] 800 [place] [address] 04/28/2025 8:30 AM EST Appointment [facility] 800 [place] [address] 04/30/2025 10:00 AM EST Appointment [facility] 1 [address] [place] [address] 06/29/2025 12:30 PM EDT Clinical Support [facility] [address] [address] 06/29/2025 1:00 PM EDT Office Visit [facility] [address] [address] [place] [address] [place] [address] documented as of this encounter Procedures Procedure [...] on filedocumented in this encounter Care Teams Making Line Worker Relationship Specialty Start Date End Date Pcp, No 800 [place] [address] PCP - General Family Medicine 03/31/21 11/12/21 Sergey Oh MD 800 [place] [address] PCP - General 11/13/21 Jean Mak MD 800 [facility] Cancer [address] [address] Surgeon Otolaryngology 11/21/21 Alice Chou, RN None None Registered Nurse 02/14/25 documented as of this encounter
--- OUTSIDE RECORDS SUMMARY | 2025-03-22 09:57 | XMS_ITS | Encounter Summary ---
Author Organization Healthcare Address [address] [place] [address] Care Team Providers Care Skylights Assembler Name Role Phone Sergey Oh MD Primary Care Provider [phone] Jean Mak MD Unavailable [phone] Alice Chou RN Unavailable Unavailable Encounter Details Date Type Department Care Team (Late Contact Info) Description 10/21/2023 Orders Only External Location [address] [place] [address] Provider, External Social History Tobacco Use Types [...] Info) Description 03/30/2025 8:30 AM EST Appointment [facility] Infusion Clinic 2 [address] [place] [address] 2025 9:00 AM EST Appointment [facility] 2 [address] [place] [address] 04/14/2025 7:45 AM EST Clinical Support [facility] Multidisciplinary Oncology Clinic 800 [place] [address] 04/14/2025 8:00 AM EST Office Visit [facility] 800 [place] [address] Edison Skaggs MD 800 [place] [address] 04/14/2025 9:30 AM EST Appointment [facility] 800 [place] [address] 04/16/2025 10:30 AM EST Appointment [facility] [address] [place] [address] 04/28/2025 8:30 AM EST Appointment [facility] [address] [place] [address] 04/30/2025 10:00 AM EST Appointment [facility] Infusion Clinic 1 [address] [place] [address] 06/29/2025 12:30 PM EDT Clinical Support [facility] [address] [address] 06/29/2025 1:00 PM EDT Office Visit [facility] [address] [address] Danny Coon MD [address] [place] [address] documented as of this encounter Procedures [...] documented as of this encounter Care Teams Skylights Assembler Relationship Specialty Start Date End Date Sergey Oh MD PCP - General 11/13/21 Jean Mak MD 800 [facility] Cancer [address] [address] Surgeon Otolaryngology 11/21/21 Alice Chou RN None None Registered Nurse 02/14/25 documented as of this encounter
--- OUTSIDE RECORDS SUMMARY | 2025-03-22 09:57 | XMS_ITS | Encounter Summary ---
Author Organization Healthcare Address [address] [place] [address] Care Team Providers Care Agriscience Teacher Name Role Phone Pcp, No Primary Care Provider Unavailabl Sergey Oreilly MD Primary Care Provider [phone] Jean Mak MD Unavailable [phone] Alice Chou RN Unavailable Unavailable Encounter Details Date Type Department Care Team (Late Contact Info) Description 11/19/2019 Orders Only External Location 800 [place] [address] Provider, External Social History Tobacco Use Types [...] EST Appointment [facility] 2 [address] [place] [address] 2025 9:00 AM EST Appointment [facility] 2 [address] [place] [address] 04/14/2025 7:45 AM EST Clinical Support [facility] [address] [place] [address] 04/14/2025 8:00 AM EST Office Visit [facility] 800 [place] [address] Edison Skaggs MD 800 [place] [address] 04/14/2025 9:30 AM EST Appointment [facility] [address] [place] [address] 04/16/2025 10:30 AM EST Appointment [facility] [address] [place] [address] 04/28/2025 8:30 AM EST Appointment [facility] [address] [place] [address] 04/30/2025 10:00 AM EST Appointment [facility] 1 [address] [place] [address] 06/29/2025 12:30 PM EDT Clinical Support [facility] 800 [facility], 2nd [place] [address] 06/29/2025 1:00 PM EDT Office Visit [facility] [address] [address] Danny Coon MD [address] [place] [address] documented as of this encounter Procedures [...] on filedocumented in this encounter Care Teams Agriscience Teacher Relationship Specialty Start Date End Date Pcp, No 800 [place] [address] PCP - General Family Medicine 03/31/21 11/12/21 Sergey Oh MD 800 [place] [address] PCP - General 11/13/21 Jean Mak MD 800 [facility] Cancer [address] [address] Surgeon Otolaryngology 11/21/21 Alice Chou RN None None Registered Nurse 02/14/25 documented as of this encounter
--- OUTSIDE RECORDS SUMMARY | 2025-03-22 09:57 | XMS_ITS | Encounter Summary ---
Author Organization Healthcare Address [address] [place] [address] Care Team Providers Care Safety Admin Assistant Name Role Phone Pcp, No Primary Care Provider Unavailabl Sergey Oreilly MD Primary Care Provider [phone] Jean Mak MD Unavailable [phone] Alice Chou RN Unavailable Unavailable Encounter Details Date Type Department Care Team (Late Contact Info) Description 07/15/2019 Orders Only External Location 800 [place] [address] Provider, External Social History Tobacco Use Types [...] EST Appointment [facility] 2 [address] [place] [address] 2025 9:00 AM EST Appointment [facility] 2 [address] [place] [address] 04/14/2025 7:45 AM EST Clinical Support [facility] [address] [place] [address] 04/14/2025 8:00 AM EST Office Visit [facility] [address] [place] [address] Edison Skaggs MD 800 [place] [address] 04/14/2025 9:30 AM EST Appointment [facility] 800 [place] [address] 04/16/2025 10:30 AM EST Appointment [facility] 800 [place] [address] 04/28/2025 8:30 AM EST Appointment [facility] [address] [place] [address] 04/30/2025 10:00 AM EST Appointment [facility] 1 [address] [place] [address] 06/29/2025 12:30 PM EDT Clinical Support [facility] 800 [facility], 2nd [place] [address] 06/29/2025 1:00 PM EDT Office Visit [facility] [address] [address] Danny Coon MD [address] [place] [address] documented as of this encounter Procedures [...] on filedocumented in this encounter Care Teams Safety Admin Assistant Relationship Specialty Start Date End Date Pcp, No 800 [place] [address] PCP - General Family Medicine 03/31/21 11/12/21 Sergey Oh MD [address] [place] [id number] PCP - General 11/13/21 Jean Mak MD 800 [facility] Cancer [address] [address] Surgeon Otolaryngology 11/21/21 Alice Chou RN None None Registered Nurse 02/14/25 documented as of this encounter
--- OUTSIDE RECORDS SUMMARY | 2025-03-22 09:57 | XMS_ITS | Encounter Summary ---
Author Organization Healthcare Address [address] [place] [address] Care Team Providers Care Bus Monitor Name Role Phone Pcp, No Primary Care Provider Unavailabl Sergey Oreilly MD Primary Care Provider [phone] Jean Mak MD Unavailable [phone] Alice Chou RN Unavailable Unavailable Encounter Details Date Type Department Care Team (Late Contact Info) Description 02/14/2020 Orders Only External Location 800 [place] [address] Provider, External Social History Tobacco Use Types [...] EST Appointment [facility] 2 [address] [place] [address] 2025 9:00 AM EST Appointment [facility] 2 [address] [place] [address] 04/14/2025 7:45 AM EST Clinical Support [facility] 800 [place] [address] 04/14/2025 8:00 AM EST Office Visit [facility] 800 [place] [address] Edison Skaggs MD 800 [place] [address] 04/14/2025 9:30 AM EST Appointment [facility] 800 [place] [address] 04/16/2025 10:30 AM EST Appointment [facility] 800 [place] [address] 04/28/2025 8:30 AM EST Appointment [facility] 800 [place] [address] 04/30/2025 10:00 AM EST Appointment [facility] 1 [address] [place] [address] 06/29/2025 12:30 PM EDT Clinical Support [facility] 800 [facility], 2nd [place] [address] 06/29/2025 1:00 PM EDT Office Visit [facility] [address] [address] Danny Coon MD [address] [place] [address] documented as of this encounter Procedures [...] on filedocumented in this encounter Care Teams Bus Monitor Relationship Specialty Start Date End Date Pcp, No 800 [place] [address] PCP - General Family Medicine 03/31/21 11/12/21 Sergey Oh MD 800 [place] [address] PCP - General 11/13/21 Jean Mak MD 800 [facility] Cancer [address] [address] Surgeon Otolaryngology 11/21/21 Alice Chou RN None None Registered Nurse 02/14/25 documented as of this encounter
--- OUTSIDE RECORDS SUMMARY | 2025-03-22 09:57 | XMS_ITS | Encounter Summary ---
Author Organization Healthcare Address [address] [place] [address] Care Team Providers Care Bus Starter Name Role Phone Pcp, No Primary Care Provider Unavailabl Sergey Oreilly MD Primary Care Provider [phone] Jean Mak MD Unavailable [phone] Alice Chou RN Unavailable Unavailable Encounter Details Date Type Department Care Team (Late Contact Info) Description 01/22/2020 Orders Only External Location [address] [place] [phone] Provider, External Social History Tobacco Use Types [...] EST Appointment [facility] 2 [address] [place] [address] 2025 9:00 AM EST Appointment [facility] 2 [address] [place] [address] 04/14/2025 7:45 AM EST Clinical Support [facility] [address] [place] [address] 04/14/2025 8:00 AM EST Office Visit [facility] [address] [place] [address] Edison Skaggs MD 800 [place] [address] 04/14/2025 9:30 AM EST Appointment [facility] [address] [place] [address] 04/16/2025 10:30 AM EST Appointment [facility] [address] [place] [address] 04/28/2025 8:30 AM EST Appointment [facility] [address] [place] [address] 04/30/2025 10:00 AM EST Appointment [facility] 1 [address] [place] [address] 06/29/2025 12:30 PM EDT Clinical Support [facility] 800 [facility], 2nd [place] [address] 06/29/2025 1:00 PM EDT Office Visit [facility] [address] [address] Danny Coon MD [address] [place] [address] documented as of this encounter Procedures [...] filedocumented in this encounter Care Teams Bus Starter Relationship Specialty Start Date End Date Pcp, No 800 [place] [address] PCP - General Family Medicine 03/31/21 11/12/21 Sergey Oh MD 800 [place], [place] [id number] PCP - General 11/13/21 Jean Mak MD 800 [facility] Cancer [address] [address] Surgeon Otolaryngology 11/21/21 Alice Chou RN None None Registered Nurse 02/14/25 documented as of this encounter
--- OUTSIDE RECORDS SUMMARY | 2025-03-22 09:57 | XMS_ITS | Clinical Summary ---
Author Organization [facility] Address [address] [place] [address] Care Team Providers Care Hot Tamale Worker Name Role Phone Melia Knox Primary Care Provider [phone] Medications OTHER - BILL ONLY Ac tive [...] 2024 Influenza Vaccination (#1) 2024 Care Teams Hot Tamale Worker Relationship Specialty Start Date End Date Melia Knox [address] [facility] [place] [address] PCP - General Family Medicine 09/29/17
--- OUTSIDE RECORDS SUMMARY | 2025-03-22 09:57 | XMS_ITS | Encounter Summary ---
Author Organization Healthcare Address [address] [place] [address] Care Team Providers Care Ordnance Engineer Name Role Phone Sergey Oh MD Primary Care Provider [phone] Jean Mak MD Unavailable [phone] Alice Chou RN Unavailable Unavailable Encounter Details Date Type Department Care Team (Latest Contact Info) Description 03/19/2025 Travel Social History Tobacco Use Types Packs/Day [...] drink first t mono in the morning (EYE-DIRECTOR INPATIENT HEADACHE PROGRAM) to steady your nerves or to get [...] Upcoming Encounters Date Type Department Care Team ([facility] Contact Info) Description 03/30/2025 8:30 AM EST Appointment [facility] 2 [address] [place] [address] 2025 9:00 AM EST Appointment [facility] 2 [address] [place] [address] 04/14/2025 7:45 AM EST Clinical [address] [facility] Multidisciplinary Oncology Clinic [address] [place] [address] 04/14/2025 8:00 AM EST Office Visit [facility] [address] [place] [address] Edison Skaggs MD 800 [place] [address] 04/14/2025 9:30 AM EST Appointment [facility] [address] [place] [address] 04/16/2025 10:30 AM EST Appointment [facility] [address] [place] [address] 04/28/2025 8:30 AM EST Appointment [facility] [address] [place] [address] 04/30/2025 10:00 AM EST Appointment [facility] 1 [address] [place] [address] 06/29/2025 12:30 PM EDT Clinical Support [facility] 800 [facility], 2nd [place] [address] 06/29/2025 1:00 PM EDT Office Visit [facility] 800 [facility], [address]nd [place] [phone] Danny Coon MD 2[address] [facility] 125 [place] [phone] documented as of this encounter Visit Diagnoses [...] documented as of this encounter Care Teams Ordnance Engineer Relationship Specialty Start Date End Date Sergey Oh MD PCP - General 11/13/21 Jean Mak MD 800 [facility] [address]nd [place] [address] Surgeon Otolaryngology 11/21/21 Alice Chou, ROSHNI None None Registered Nurse 02/14/25 documented as of this encounter
--- OUTSIDE RECORDS SUMMARY | 2025-03-22 09:57 | XMS_ITS | Encounter Summary ---
Author Organization Healthcare Address [address] [place] [address] Care Team Providers Care Soil Analyst Name Role Phone Pcp, No Primary Care Provider Unavailabl Sergey Oreilly MD Primary Care Provider [phone] Jean Mak MD Unavailable [phone] Alice Chou RN Unavailable Unavailable Encounter Details Date Type Department Care Team (Late Contact Info) Description 01/22/2020 Orders Only External Location 800 [place] [phone] Provider, External Social History Tobacco Use Types [...] EST Appointment [facility] 2 [address] [place] [address] 2025 9:00 AM EST Appointment [facility] 2 [address] [place] [address] 04/14/2025 7:45 AM EST Clinical Support [facility] [address] [place] [address] 04/14/2025 8:00 AM EST Office Visit [facility] [address] [place] [address] Edison Skaggs MD 800 [place] [address] 04/14/2025 9:30 AM EST Appointment [facility] [address] [place] [address] 04/16/2025 10:30 AM EST Appointment [facility] [address] [place] [address] 04/28/2025 8:30 AM EST Appointment [facility] [address] [place] [address] 04/30/2025 10:00 AM EST Appointment [facility] 1 [address] [place] [address] 06/29/2025 12:30 PM EDT Clinical Support [facility] 800 [facility], 2nd [place] [address] 06/29/2025 1:00 PM EDT Office Visit [facility] [address] [address] Danny Coon MD [address] [place] [address] documented as of this encounter Procedures [...] on filedocumented in this encounter Care Teams Soil Analyst Relationship Specialty Start Date End Date Pcp, No 800 [place] [address] PCP - General Family Medicine 03/31/21 11/12/21 Sergey Oh MD 800 [place] [address] PCP - General 11/13/21 Jean Mak MD 800 [facility] Cancer [address] [address] Surgeon Otolaryngology 11/21/21 Alice Chou RN None None Registered Nurse 02/14/25 documented as of this encounter
--- OUTSIDE RECORDS SUMMARY | 2025-03-22 09:57 | XMS_ITS | Encounter Summary ---
Author Organization Healthcare Address [address] [place] [address] Care Team Providers Care Assistant Press Operator Offset Name Role Phone Sergey Oh MD Primary Care Provider [phone] Jean Mak MD Unavailable [phone] Alice Chou RN Unavailable Unavailable Encounter Details Date Type Department Care Team (Late st Contact Info) Description 02/21/2025 Telephone [facility] Interventional Radiology [address] [place] [address] Dorota Coleman, RN None None Social History Tobacco Use Types Packs/Day Years [...] drink first t mono in the morning (EYE-WIRELESS SALES ASSOCIATE) to steady your nerves or to get [...] as of this encounter Miscellaneous Notes * Nursing Note - Dorota Coleman RN - 02/21/2025 2:02 PM EST Called patient regarding 03/01/2025 CT guided biopsy retroperitoneal. Patient did not answer. Left voicemail with instructions for upcoming procedure: -NPO @ [facility] the night before the procedure -gravel truck driver required to and from procedure -arrival time: 9:30 -location and directions to the department given Patient does not have any anticoagulants in their medication list. Callback number provided. documented in this encounter Plan of Treatment Upcoming Encounters Date Type Department Care Team (Late st Contact Info) Description 03/30/2025 8:30 AM EST Appointment [facility] 2 [address] [place] [address] 2025 9:00 AM EST Appointment [facility] Infusion Clinic 2 [address] [place] [address] 04/14/2025 7:45 AM EST Clinical Support [facility] Multidisciplinary Oncology Clinic 800 [place] [address] 04/14/2025 8:00 AM EST Office Visit [facility] Multidisciplinary Oncology Clinic [address] [place] [address] Edison Skaggs MD 800 [place] [address] 04/14/2025 9:30 AM EST Appointment [facility] [address] [place] [address] 04/16/2025 10:30 AM EST Appointment [facility] [address] [place] [address] 04/28/2025 8:30 AM EST Appointment [facility] [address] [place] [address] 04/30/2025 10:00 AM EST Appointment [facility] 1 [address] [place] [address] 06/29/2025 12:30 PM EDT Clinical Support [facility] [address] [phone] 06/29/2025 1:00 PM EDT Office Visit [facility] [address] [phone] Danny Coon MD [facility] [address] [address] documented as of this encounter [...] documented as of this encounter Care Teams Assistant Press Operator Offset Relationship Specialty Start Date End Date Sergey Oh MD PCP - General 11/13/21 Jean Mak MD 800 [facility] [address] [place] [phone] Surgeon Otolaryngology 11/21/21 Alice Chou, RN None None Registered Nurse 02/14/25 documented as of this encounter
--- OUTSIDE RECORDS SUMMARY | 2025-03-22 09:57 | XMS_ITS | Encounter Summary ---
Author Organization Healthcare Address [address] [place] [address] Care Team Providers Care Cloth Grader Supervisor Name Role Phone Pcp, No Primary Care Provider Unavailabl Sergey Oreilly MD Primary Care Provider [phone] Jean Mak MD Unavailable [phone] Alice Chou RN Unavailable Unavailable Encounter Details Date Type Department Care Team (Late Contact Info) Description 01/23/2020 Orders Only External Location 800 [place] [phone] Provider, External Social History Tobacco Use Types [...] EST Appointment [facility] 2 [address] [place] [address] 2025 9:00 AM EST Appointment [facility] 2 [address] [place] [address] 04/14/2025 7:45 AM EST Clinical Support [facility] 800 [place] [address] 04/14/2025 8:00 AM EST Office Visit [facility] 800 [place] [address] Edison Skgags MD 800 [place] [address] 04/14/2025 9:30 AM EST Appointment [facility] 800 [place] [address] 04/16/2025 10:30 AM EST Appointment [facility] [address] [place] [address] 04/28/2025 8:30 AM EST Appointment [facility] 800 [place] [address] 04/30/2025 10:00 AM EST Appointment [facility] 1 [address] [place] [address] 06/29/2025 12:30 PM EDT Clinical Support [facility] 800 [facility], 2nd [place] [address] 06/29/2025 1:00 PM EDT Office Visit [facility] [address] [address] Danny Coon MD [address] [place] [address] documented as of this encounter Procedures [...] filedocumented in this encounter Care Teams Cloth Grader Supervisor Relationship Specialty Start Date End Date Pcp, No [address] [place] [address] PCP - General Family Medicine 03/31/21 11/12/21 Sergey Oh MD 800 [place], [place] [phone] PCP - General 11/13/21 Jean Mak MD 800 [facility] Cancer [address] [address] Surgeon Otolaryngology 11/21/21 Alice Chou RN None None Registered Nurse 02/14/25 documented as of this encounter
--- OUTSIDE RECORDS SUMMARY | 2025-03-22 09:58 | XMS_ITS | Encounter Summary ---
Author Organization [facility] Address [address] [place] [address] Care Team Providers Care School Adjustment Counselor Name Role Phone Sergey Oh MD Primary Care Provider [phone] Jean Mak MD Unavailable [phone] Alice Chou RN Unavailable Unavailable Reason for Referral * Consultation (Routine) - Authorized Specialty Diagnoses / Procedures Referred By Contac t Referred To Contact Diagnoses Encounter for support and coordination of transition of care [facility] [address] [facility] [address] [place] [address] Phone: tel: [address] [place], [facility] 100 [place] [address] Phone: tel: Referral ID Status Reason Start Date Expiration Date Visits Requested Visits Authorized [id number] Authorized Other Co-Managemen t of Problem 5 08/16/2026 1 1 Encounter Details Date Type Department Care Team (Late st Contact Info) Description 02/14/2025 Patient Outreach [facility] [facility] 100 [place] [address] Lori Wagner Social History Tobacco Use Types Packs/Day Years [...] drink first t mono in the morning (EYE-SENIOR PROCUREMENT MANAGER) to steady your nerves or to [...] of Assessment Author Precautions Environmental surveillance 02/14/2025 12: 00 PM Caterina Mayfield, ROSHNI * Calculated C-SSRS Risk Score (Lifetime/Recent) Answer Date of Assessment Author No Risk Indicated 02/14/2025 7:20 AM Caterina Ferguson RN * Question Answer Date of Assessment Author 1. Wish to be (Past 1 Month) No 02/14/2025 7:20 AM Vishnu Mayfield, ROSHNI 2. Non-Specific Active Suici juanis Thoughts (Past 1 Month) No 02/14/2025 7:20 AM Ryan Mayfield RN 6. Suicidal Behavior (Lifetime) No 7:20 AM EST Caterina Gregg, RN documented as of this encounter Mental Status * Question Answer Entry Date Author Precautions Environmental surveillance 02/14/2025 12: 00 PM EST Caterina Gregg RN documented in this encounter Miscellaneous Notes * Progress Notes - Lori Wagner - 02/14/2025 1:21 PM EST Pop [facility] Enrollment 02/14/2025 Pop [facility] Program: [] LINK [x] HRCM Primary Facility: [x] Lane [] Garret Mark [x] Spoke with CM [x] Spoke with patient/caregiver [] PCP [x] Outside PCP - [facility] [place] [facility] ([facility]) [x] Confirmed/Updated Patient's Contact Information, Voicemail, Preferred Method SDOH Needs/Assessment [] Transportation [] Food [] Housing [] Utility [x] Medication [x] Health Education [] Insurance [] Legal [] Unable to assess Discussion Summary: Population [facility] SW met with pt bedside for introductions and review of [facility] programs. Pt verified contact info and PCP; verbalized understanding of benefits of DEEP appt. [facility] SW provided contact card for f/u questions. Discharge Disposition [] Sub-Acute Rehab [x] Home [] Other: Lori Wagner, LUKE, POLICY OFFICER Population Health Navigator [email or web address] documented in this encounter Plan of Treatment Upcoming Encounters Date Type Department Care Team (Late st Contact Info) Description 03/30/2025 8:30 AM EST Appointment [facility] 2 [address] [place] [address] 2025 9:00 AM EST Appointment [facility] 2 [address] [place] [address] 04/14/2025 7:45 AM EST Clinical Support [facility] 800 [place] [address] 04/14/2025 8:00 AM EST Office Visit [facility] Multidisciplinary Oncology Clinic 800 [place] [address] Edison Skaggs MD 800 [place] [address] 04/14/2025 9:30 AM EST Appointment [facility] 800 [place] [address] 04/16/2025 10:30 AM EST Appointment [facility] 800 [place] [address] 04/28/2025 8:30 AM EST Appointment [facility] 800 [place] [address] 04/30/2025 10:00 AM EST Appointment [facility] 1 [address] [place] [address] 06/29/2025 12:30 PM EDT Clinical Support [facility] [address] [place] [address] 06/29/2025 1:00 PM EDT Office Visit [facility] [address] [address] Danny Coon MD [address] [address] Scheduled Referrals Name Type Priority Associated Diagnoses Orde r Schedule Ambulatory referral to [facility] Outpatient Referral Routine Encounter for support and coordination of transition of care 1 Occurrences starting 02/14/2025 until 08/18/2026 documented as of this encounter Visit Diagnoses Diagnosis Encounter for support and coordination of transition of care- Primary documented in this encounter Additional Health Concerns Assessment Noted Time PHQ-9 Depression Total Score: 0 06/22/19 25 1:53 PM EDT A fall risk assessment has been complete d for the patient 12/29/2024 1:10 PM EDT A Body Mass Index follow-up plan has been documented for the patient 02/14/2025 12:44 PM EST documented as of this encounter Care Teams School Adjustment Counselor Relationship Specialty Start Date End Date Sergey Oh MD PCP - General 11/13/21 Jean Mak MD [address] [place], [place] [address]ach Cancer [address] [address] Surgeon Otolaryngology 11/21/21 Alice Chou, RN None None Registered Nurse 02/14/25 documented as of this encounter
--- OUTSIDE RECORDS SUMMARY | 2025-03-22 09:58 | XMS_ITS | Encounter Summary ---
Author Organization Healthcare Address [address] [place] [address] Care Team Providers Care Dude Ranch Manager Name Role Phone Sergey Oh MD Primary Care Provider [phone] Jean Mak MD Unavailable [phone] Alice Chou RN Unavailable Unavailable Encounter Details Date Type Department Care Team (Late st Contact Info) Description 02/14/2025 Referral Triage [facility] [place] [address] [facility], [address] [place] [address] Alice Chou RN None None Social History Tobacco Use [...] drink first t mono in the morning (EYE-PANEL INSTRUMENT REPAIRER) to steady your nerves or to [...] Environmental surveillance 02/14/2025 12: 00 PM Caterina Mayfield RN * Calculated C-SSRS Risk Score (Lifetime/Recent) Answer [...] Suicidal Behavior (Lifetime) No 7:20 AM Caterina Mayfield RN documented as of this encounter Mental Status * Question Answer Entry Date Author Precautions Environmental surveillance 02/14/2025 12: 00 PM Caterina Mayfield RN documented in this encounter Miscellaneous Notes * Progress Notes - Alice Chou RN - 02/14/2025 1:34 PM EST HRCM Inpatient Review Reason for Note: Inpatient Admission Review HRCM nurse will coordinate with TATE/EVAN MAJANO during admission and continue to follow the patient after discharge. HRCM Nurse: Alice Chou RN 02/14/2025 1:34 PM documented in this encounter Plan of Treatment Upcoming Encounters Date Type Department Care Team (Late st Contact Info) Description 03/30/2025 8:30 AM EST Appointment [facility] 2 [address] [place] [address] 2025 9:00 AM EST Appointment [facility] 2 [address] [place] [address] 04/14/2025 7:45 AM EST Clinical Support [facility] 800 [place] [address] 04/14/2025 8:00 AM EST Office Visit [facility] 800 [place] [address] Edison Skaggs MD 800 [place] [address] 04/14/2025 9:30 AM EST Appointment [facility] 800 [place] [address] 04/16/2025 10:30 AM EST Appointment [facility] 800 [place] [address] 04/28/2025 8:30 AM EST Appointment [facility] 800 [place] [address] 04/30/2025 10:00 AM EST Appointment [facility] 1 [address] [place] [address] 06/29/2025 12:30 PM EDT Clinical Support [facility] [address] [address] 06/29/2025 1:00 PM EDT Office Visit [facility] [address] [address] Danny Coon MD [address] [address] documented as of this encounter Visit Diagnoses [...] documented as of this encounter Care Teams Dude Ranch Manager Relationship Specialty Start Date End Date Sergey Oh MD PCP - General 11/13/21 Jean Mak MD 800 [facility] Cancer [address] [address] Surgeon Otolaryngology 11/21/21 Alice Chou, RN None None Registered Nurse 02/14/25 documented as of this encounter
--- OUTSIDE RECORDS SUMMARY | 2025-03-22 09:58 | XMS_ITS | Encounter Summary ---
Author Organization [facility] Address [address] [place] [address] Care Team Providers Care Resident Doctor Name Role Phone Sergey Oh MD Primary Care Provider [phone] Jean Mak MD Unavailable [phone] Encounter Details Date Type Department Care Team (Latest Contact Info) Description 02/12/2025 Travel Social History Tobacco Use Types Packs/Day [...] drink first t mono in the morning (EYE-FIXTURE REPAIRER FABRICATOR) to steady your nerves or to get [...] Date of Assessment Author No Risk Indicated 02/12/2025 6:08 PM Jeb Brown RN * Question Answer Date of Assessment Author 1. Wish to be (Past 1 Month) No 025 6:08 PM Jeb Brown, RN 2. Non-Specific Active Suici juanis Thoughts (Past 1 Month) No 02/12/2025 6:08 PM Patrick Brown RN 6. Suicidal Behavior (Lifetime) No 6:08 PM Jeb Brown RN documented as of this encounter Plan of Treatment Upcoming Encounters Date Type Department Care Team (Late st Contact Info) Description 03/30/2025 8:30 AM EST Appointment [facility] Infusion Clinic 2 4 [place] [address] 2025 9:00 AM EST Appointment [facility] Infusion Clinic 2 4 [place] [address] 04/14/2025 7:45 AM EST Clinical Support [facility] Multidisciplinary Oncology Clinic 800 [place] [address] 04/14/2025 8:00 AM EST Office Visit [facility] Multidisciplinary Oncology Clinic [address] [place] [phone] Edison Skaggs MD 800 [place] [address] 04/14/2025 9:30 AM EST Appointment [facility] 800 [place] [address] 04/16/2025 10:30 AM EST Appointment [facility] 800 [place] [address] 04/28/2025 8:30 AM EST Appointment [facility] [address] [place] [address] 04/30/2025 10:00 AM EST Appointment [facility] 1 [address] [place] [address] 06/29/2025 12:30 PM EDT Clinical Support [facility] 800 [facility] [place] [facility], [address]nd [place] [address] 06/29/2025 1:00 PM EDT Office Visit [facility] [address] [address] Danny Coon MD [address] [place] [phone] documented as of this encounter Visit Diagnoses [...] documented as of this encounter Care Teams Resident Doctor Relationship Specialty Start Date End Date Sergey Oh MD PCP - General 11/13/21 Jean Mak MD 800 [facility] [place] [facility] [address]nd [place] [phone] Surgeon Otolaryngology 11/21/21 documented as of this encounter
--- OUTSIDE RECORDS SUMMARY | 2025-03-22 09:58 | XMS_ITS | Encounter Summary ---
Author Organization [facility] Address [address] [place] [address] Care Team Providers Care Rag Grader Name Role Phone Sergey Oh MD Primary Care Provider [phone] Jean Mak MD Unavailable [phone] Encounter Details Date Type Department Care Team (Latest Contact Info) Description 02/13/2025 Travel Social History Tobacco Use Types Packs/Day [...] drink first t mono in the morning (EYE-SWEDISH MASSEUSE) to steady your nerves or to get [...] Date of Assessment Author Precautions Environmental surveillance 02/13/2025 8:0 0 PM EST Sapphire Carlson LPN * Calculated C-SSRS Risk Score (Lifetime/Recent) Answer Date of Assessment Author No Risk Indicated 02/13/2025 8:00 PM EST Sapphire Carlson LPN * Question Answer Date of Assessment Author 1. Wish to be (Past 1 Month) No 025 8:00 PM EST Sapphire Carlson LPN 2. Non-Specific Active Suici juanis Thoughts (Past 1 Month) No 02/13/2025 8:00 PM EST Sapphire Carlson LPN 6. Suicidal Behavior (Lifetime) No 8:00 PM EST Sapphire Carlson LPN documented as of this encounter Mental Status * Question Answer Entry Date Author Precautions Environmental surveillance 02/13/2025 8:0 0 PM EST Sapphire Carlson LPN documented in this encounter Plan of Treatment Upcoming Encounters Date Type Department Care Team (Late st Contact Info) Description 03/30/2025 8:30 AM EST Appointment [facility] 2 [address] [place] [address] 2025 9:00 AM EST Appointment [facility] 2 [address] [place] [address] 04/14/2025 7:45 AM EST Clinical Support [facility] 800 [place] [address] 04/14/2025 8:00 AM EST Office Visit [facility] 800 [place] [address] Edison Skaggs MD 800 [place] [address] 04/14/2025 9:30 AM EST Appointment [facility] 800 [place] [address] 04/16/2025 10:30 AM EST Appointment [facility] 800 [place] [address] 04/28/2025 8:30 AM EST Appointment [facility] 800 [place] [address] 04/30/2025 10:00 AM EST Appointment [facility] 1 [address] [place] [address] 06/29/2025 12:30 PM EDT Clinical Support [facility] [address] [phone] 06/29/2025 1:00 PM EDT Office Visit [facility] [address] [phone] Danny Coon MD [address] [place] [address] documented as of this encounter Visit [...] documented as of this encounter Care Teams Rag Grader Relationship Specialty Start Date End Date Sergey Oh MD PCP - General 11/13/21 Jean Mak MD 800 [facility] [address]nd [place] [address] Surgeon Otolaryngology 11/21/21 documented as of this encounter
--- OUTSIDE RECORDS SUMMARY | 2025-03-22 09:58 | XMS_ITS | Encounter Summary ---
Author Organization Healthcare Address [address] [place] [address] Care Team Providers Care Audio Visual Specialist Name Role Phone Sergey Oh MD Primary Care Provider [phone] Jean Mak MD Unavailable [phone] Alice Chou RN Unavailable Unavailable Encounter Details Date Type Department Care Team (Latest Contact Info) Description 02/17/2025 Travel Social History Tobacco Use Types Packs/Day [...] drink first t mono in the morning (EYE-GROMMET MAN) to steady your nerves or to get [...] things Not at all 02/17/2025 10:13 AM Jamir Mcgraw Feeling down, depressed, or hopeless Not at [...] Jamir Singh documented as of this encounter Plan of Treatment Upcoming Encounters Date Type Department Care Team (Late st Contact Info) Description 03/30/2025 8:30 AM EST Appointment [facility] [address] [place] [address] 2025 9:00 AM EST Appointment [facility] [address] [place] [address] 04/14/2025 7:45 AM EST Clinical Support [facility] [address] [place] [address] 04/14/2025 8:00 AM EST Office Visit [facility] [address] [place] [address] Edison Skaggs MD [address] [place] [address] 04/14/2025 9:30 AM EST Appointment [facility] [address] [place] [phone] 04/16/2025 10:30 AM EST Appointment [facility] [address] [place] [phone] 04/28/2025 8:30 AM EST Appointment [facility] [address] [place] [phone] 04/30/2025 10:00 AM EST Appointment [facility] [address] [place] [phone] 06/29/2025 12:30 PM EDT Clinical Support [facility] [address] [phone] 06/29/2025 1:00 PM EDT Office Visit [facility] [address] [phone] [place] [address] [place] [phone] documented as of this encounter Visit Diagnoses [...] documented as of this encounter Care Teams Audio Visual Specialist Relationship Specialty Start Date End Date Sergey Oh MD PCP - General 11/13/21 Jean Mak MD 800 [facility] Cancer [address] [phone] Surgeon Otolaryngology 11/21/21 Alice Chou, RN None None Registered Nurse 02/14/25 documented as of this encounter
--- OUTSIDE RECORDS SUMMARY | 2025-03-22 09:58 | XMS_ITS | Encounter Summary ---
Author Organization [facility] Address [address] [place] [address] Care Team Providers Care Scientific Investigator Name Role Phone Sergey Oh MD Primary Care Provider [phone] Jean Mak MD Unavailable [phone] Reason for Referral * Imaging (Routine) - Closed Specialty Diagnoses / Procedures Referred By Contac t Referred To Contact Radiology Diagnoses Localized enlarged lymph nodes Procedures CT Guided Biopsy Retroperitoneal Manuela Pedersen APRN, DNP [address] [place] [address] Phone: tel: fax: Referral ID Status Reason Start Date Expiration Date Visits Re quested Visits Authorized [id number] Closed 02/13/2025 08/15/2026 1 1 Encounter Details Date Type Department Care Team (Late st Contact Info) Description 02/13/2025 Orders Only [facility] [address] [place] [address] [place] [address] Manuela Pedersen APRN, DNP [address] [place] [address] Localized enlarged lymph nodes (Primary [...] drink first t mono in the morning (EYE-WAFER FAB OPERATOR) to steady your nerves or to [...] documented as of this encounter Functional Status documented as of this encounter Mental Status * Question Answer Entry Date Author Precautions None 02/13/2025 2:00 AM EST Marielle Evans RN documented in this encounter Plan of Treatment Upcoming Encounters Date Type Department Care Team (Late st Contact Info) Description 03/30/2025 8:30 AM EST Appointment [facility] [address] [place] [address] 2025 9:00 AM EST Appointment [facility] [address] [place] [phone] 04/14/2025 7:45 AM EST Clinical Support [facility] [address] [place] [address] 04/14/2025 8:00 AM EST Office Visit [facility] [address] [place] [address] Edison Skaggs MD [address] [place] [address] 04/14/2025 9:30 AM EST Appointment [facility] [address] [place] [address] 04/16/2025 10:30 AM EST Appointment [facility] [address] [place] [address] 04/28/2025 8:30 AM EST Appointment [facility] [address] [place] [phone] 04/30/2025 10:00 AM EST Appointment [facility] [address] [place] [address] 06/29/2025 12:30 PM EDT Clinical Support [facility] [address] [address] 06/29/2025 1:00 PM EDT Office Visit [facility] [address] [address] Danny Coon MD [address] [place] [phone] documented as of this encounter Results * CT Guided Biopsy [...] image guided periaortic lymph node biopsy. TECHNIQUE: Mail List Librarian: Elmira Lainez M.D. Secondary Radar Engineer: Chapincito Goyal MS Nurse: Valentino Padilla Technologist: [...] for image guidedperiaortic lymph node biopsy. TECHNIQUE: Mail List Librarian: Elmira Lainez M.D. Secondary Radar Engineer: Chapincito Goyal MS Nurse: Valentino Padilla Technologist: [...] MD on 03/09/2025 9:42 AM Manuela Pedersen CORE OVEN TENDER, DNP IMG CT PROCEDURES Yoanna l Result documented in this encounter Visit Diagnoses Diagnosis Localized enlarged lymph nodes- Primary Localized enlarged lymph nodes documented in this encounter Additional Health Concerns Assessment Noted Time PHQ-9 Depression Total Score: 0 06/22/19 25 1:53 PM EDT A fall risk assessment has been complete d for the patient 12/29/2024 1:10 PM EDT A Body Mass Index follow-up plan has been documented for the patient 02/14/2025 12:44 PM EST documented as of this encounter Care Teams Scientific Investigator Relationship Specialty Start Date End Date Sergey Oh MD PCP - General 11/13/21 Jean Mak MD [address] [place] [address] [address] Surgeon Otolaryngology 11/21/21 documented as of this encounter
--- OUTSIDE RECORDS SUMMARY | 2025-03-22 09:58 | XMS_ITS | Encounter Summary ---
Author Organization Healthcare Address [address] [place] [address] Care Team Providers Care Counselor Aid Name Role Phone Sergey Oh MD Primary Care Provider [phone] Jean Mak MD Unavailable [phone] Alice Chou RN Unavailable Unavailable Reason for Visit * Reason Comments TCM Encounter Details Date Type Department Care Team (Late st Contact Info) Description 02/15/2025 Patient Outreach [facility] [address] [facility] [place] [address] Alice Chou, RN None None TCM Social History Tobacco Use Types Packs/Day Years [...] drink first t mono in the morning (EYE-ACCOUNT SUPPORT REP) to steady your nerves or to get [...] Progress Notes - Alice Chou RN - 02/15/2025 10:52 AM EST Admit Date: 02/12 Discharge Date: 02/14 Hospital Service: Medicine Discharge Diagnosis: Acute on Chronic Abdominal Pain 02/15/2025 TCM call # 1 Patient Reached: Yes, but she declined call. Did not review medications or dc report and reported Icould help her by letting her go back to sleep. Outcome: N/a Action: N/a Medication changes: N/a DEEP appointment: n/a Items to address at DEEP: n/a documented in this encounter Plan of Treatment Upcoming Encounters Date Type Department Care Team (Late st Contact Info) Description 03/30/2025 8:30 AM EST Appointment [facility] [address] [place] [address] 2025 9:00 AM EST Appointment [facility] [address] [place] [address] 04/14/2025 7:45 AM EST Clinical Support [facility] [address] [place] [address] 04/14/2025 8:00 AM EST Office Visit [facility] [address] [place] [address] Edison Skaggs MD [address] [place] [address] 04/14/2025 9:30 AM EST Appointment [facility] [address] [place] [address] 04/16/2025 10:30 AM EST Appointment [facility] [address] [place] [address] 04/28/2025 8:30 AM EST Appointment [facility] [address] [place] [address] 04/30/2025 10:00 AM EST Appointment [facility] [address] [place] [address] 06/29/2025 12:30 PM EDT Clinical Support [facility] [address] [address] 06/29/2025 1:00 PM EDT Office Visit [facility] [address] [address] Danny Coon MD [address] [place] [phone] documented as of this encounter Visit Diagnoses [...] documented as of this encounter Care Teams Counselor Aid Relationship Specialty Start Date End Date Sergey Oh MD PCP - General 11/13/21 Jean Mak MD 800 [facility] Cancer [address] [address] Surgeon Otolaryngology 11/21/21 Alice Chou, ROSHNI None None Registered Nurse 02/14/25 documented as of this encounter
--- OUTSIDE RECORDS SUMMARY | 2025-03-22 09:58 | XMS_ITS | Data Portability ---
Author Organization Formerly [facility], 1928–1983 Address [address] [place] [address] Assessment No assessment recorded. Plan of Treatment Reminders Order Date Submit Date Provider Last Modified By Organization Details Last Modified Time Details Appointments None recorded . Lab None recorded . Referral None recorded . Procedures nebulize r treatmen t (PROC) 2024 025 [email or web address] Not available 16:45:16 Surgeries None recorded . Imaging XR, thoracic spine, 2 view 2024 025 [email or web address] [employer] (Centralized Scheduling), [address] [place] [address] [place], [address], 5 14:48:25 XR, lumbar spine, 2 view 2024 025 [email or web address] (Centralized Scheduling), [address] [place] [address] [place], [address], 5 14:48:25 Medication Orders hydrocod one 7.5 mg-aceta minophen 325 mg tablet 2024 025 [facility] [place], [address] [facility], [place], [address], 5 16:54:41 ceftriax one 1 gram solution for injectio n 2024 025 [email or web address] Not available 16:06:41 ipratrop ium 0.5 mg-albut armando 3 mg (2.5 mg base)/3 mL nebuliza tion soln 2024 025 [facility], [address] [place] [address], [address], 5 16:26:12 hydrocod one 7.5 mg-aceta minophen 325 mg tablet [address], [address], 5 13:47:00 ketorola c 60 mg/2 mL intramus cular solution 2024 025 [email or web address] Not available 5 08:31:55 ketorola c 10 mg tablet 2024 025 [facility], [address] [place] [address], [address], 5 14:07:59 hydrocod one 7.5 mg-aceta minophen 325 mg tablet 2023 024 [facility], [address] [place] [address], [address], 4 10:29:34 olanzapi ne 10 mg tablet [address], [address], 5 13:52:26 Ventolin HFA 90 mcg/actu ation aerosol inhaler 2023 024 [facility], [address] [place], [address], 4 17:01:03 hydrocod one 7.5 mg-aceta minophen 325 mg tablet 2023 024 [facility], [address] [place], [address], 17:01:01 Patient TargetsNo targets recorded. Patient InstructionsNo instructions recorded. Reason for Referral None Reported. Results Created Date Observation Date Name Description Value Unit Range Abnormal Flag Note LastModifiedBy Organization Detail LastModifiedTime 01/20/20 24 12/06/2023 CT, abdom en + pelvi s, w/ contr ast No observ ation record ed. Not Available 2023 08:01:47 01/20/20 24 12/06/2023 CT, abdom en + pelvi s, w/ contr ast No observ ation record ed. [email or web address] Not Available 2023 08:01:48 01/20/2012/11/2023 CT, abdom en + pelvi s, w/ contr ast No observ ation record ed. [email or web address] Not Available 12/30 16:34:15 02/16/20 24 02/13/2024 MAMMO , scree kendall, digit al, bilat eral [facility] Name: FERNY INGRAM [address] [place], [place] [address]a [employer] [facility] Phys: Cisco (Apple aly) ,[facility] [place] [address] : 1980 Age: 43 Sex: F Acct: [id number] Loc: G.MAMM PHONE #: Exam Date: 2023 Status : DEP CLI FAX #: Rad# [id number] Unit# [id number] Admit Date: 2023 EXAMS: CPT CODE: [id number] SCN DIG BREAST TOMOSY N ALLEN 17409 BILATE RAL DIGITA L SCREEN ING MAMMOG [...] by the attend ing physic blanca. *Brenina kebede imagin g has a false negati ve [...] MD PAGE 1 Signed Report (SALOMON NUED) [facility] Name: FERNY INGRAM [facility] Phys: [employer] EDGAR (Apple ton),[place] [address] : 1980 Age: 43 Sex: F Acct: [id number] Loc: G.MAMM PHONE #: Exam Date: 2023 Status : DEP CLI FAX #: Rad# [id number] Unit# [id number] Admit Date: 2023 EXAMS: CPT CODE: [id number] SCN DIG BREAST TOMOSY N ALLEN [id number] CC: Altaf Peck MD (Apple ton); VINCENT [...] ALTAF Consul ting Provid er: MORENO ARANA [email or web address] [address] [place], [address], 03/16/2024 12:50:29 05/27/19 25 05/27/2024 XR, thora cic spine , 2 view No observ ation record ed. [address] (Centralized Scheduling) [address] [place] [address] [place], [address], 05/28/2024 12:57:58 05/27/19 25 05/27/2024 XR, lumba r spine , 2 view No observ ation record ed. [address] (Centralized Scheduling) [address] [place] [address] [place], [address], 05/28/2024 12:57:59 Result Notes None recorded. Problems Name Problem SNOMED Code Status Onset Date Resolution Date Notes Provider Name and Address Organization Details Recorded Time Malignant neoplasm of thyroid gland 936986126 Active Lori Langley null, [place] - [facility] 3 14:13:49 Suspected COVID-19 247550603 Completed 05/19/2020 Removal Reason: Problem added by user [email or web address] from the COVID-19 watch flag Shi Sneed null, [place] - [facility] 1 14:56:55 Adult health examinati on Completed 201609/15/2017 Riddhi Knox MD [address], [place], [address] [place] - [facility] 8 17:07:52 Sinusitis 21886748 Completed 201705/19/2020 Karen Durán null, [place] - [facility] 1 14:56:18 History of hepatitis B 690519800 Active 2020 Lori Langley null, [place] - [facility] 3 14:13:41 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 Procedures Surgical History Date Name Laterality Status Provider Name and Address Organization Details Recorded Time 02/02/20 24 IV Infusion completed Rosalee Florentino [place] - [facility] 02/02/2024 17:07:58 12/19/19 24 Medication Reconcilliation completed Daria Sullivan [place] - [facility] 12/19/2023 16:26:21 07/22/19 24 Date of Last Pap Smear completed Avelina Lamas APRN [address], [place], [address], [place] - [facility] 07/29/2023 08:30:14 04/24/19 23 Cold Knife Cone completed Lori Langley [place] - [facility] 05/02/2022 14:15:02 04/04/19 23 Colposcopy completed Avelina Lamas APRN [address], [place], [address], [place] - [facility] 04/04/2022 13:08:25 04/04/19 23 Colposcopy completed Avelina Lamas APRN [address], [place], [address], [place] [facility] 04/04/2022 13:08:55 04/04/19 23 Colposcopy completed Avelina Lamas APRN [address], [place], [address], [place] [facility] 04/04/2022 13:09:12 09/21/19 22 Date of Last Mammogram completed Avelina Lamas APRN [address], [place], [address], [place] [facility] 03/13/2022 09:55:52 08/15/19 21 Colposcopy cancelled Miguelina Durand [place] - [facility] 07/26/2020 08:35:54 06/03/19 21 Systolic B/P less than 130 mm Hg completed Avelina Lamas, [employer]TRIDGE ASSEMBLING MACHINE ADJUSTER [address], [place], [address], [place] [facility] 06/05/2020 06:02:52 06/03/19 21 Diastolic B/P less than 80 mm Hg completed Avelina Lamas, CARTRIDGE ASSEMBLING MACHINE ADJUSTER [address], [place], [address], [place] [facility] 06/05/2020 06:02:56 05/19/19 21 Systolic B/P less than 130 mm Hg completed Shi Sneed [place] - [facility] 05/19/2020 15:01:32 05/19/19 21 Diastolic B/P less than 80 mm Hg completed Shi Sneed [place] - [facility] 05/19/2020 15:01:35 03/29/20 02 delivery completed Archana Otoniel [place] - [facility] 06/02/2020 16:11:04 03/29/20 01 Tubal Ligation completed Isabela Michelle [place] - [facility] 04/05/2016 10:34:26 03/31/18 99 Cholecystectomy, laparoscopic completed Isabela Michelle [place] - [facility] 04/05/2016 10:33:43 03/31/18 80 Tonsillectomy completed Isabela Martinez [place] - [facility] 04/05/2016 10:34:43 thyroidectomy completed Archana Frederick [place] - [facility] 06/02/2020 16:18:00 excision of lymph node completed Archana Frederick [place] - [facility] 03/12/2022 15:32:16 Knee Surgery completed Archana Frederick [place] - [facility] 07/22/2023 16:25:32 Imaging Results None [...] e 50 mcg/actua tion nasal spray,[employer] pension [place] 1 spray every day by intranas al [...] Disconti nued on: 04/19/19 11 2:04PM;U ser: [email or web address];Est. Completi on: 02/17/20 09;Indic ation: - [...] (BMI) Body weight Heart rate Oxygen saturation Respiratory rate Systolic And Diastolic Provider Name and Address Organization Details Last Updated DateTime 5 162.56 cm 24.7 kg/m2 82394.3 g 98 /min 94 % 18 /min 110/78 mm[Hg] Daria brumfield [place] - [facility] 5 13:39:51 Date Recorded Body height Body mass index (BMI) Body weight Body temperature Heart rate Oxygen saturation Respiratory rate Systolic And Diastolic Provider Name and Address Organization Details Last Updated DateTime 5 162.56 cm 25.2 kg/m2 68351.0 8 g 97.5 [degF] 90 /min 95 % 18 /min 114/76 mm[Hg] Daria MonSamina [facility] - [facility] 5 16:14:55 Date Recorded Body height Body mass index (BMI) Body weight Body temperature Heart rate Oxygen saturation Respiratory rate Systolic And Diastolic Provider Name and Address Organization Details Last Updated DateTime 4 162.56 cm 25 kg/m2 14030.9 9 g 98.2 [degF] 94 /min 97 % 18 /min 100/72 mm[Hg] Vincent Mayer MD [address], [address], [place] - [facility] 4 16:49:18 Date Recorded Body height Body mass index (BMI) Body weight Body temperature Heart rate Oxygen saturation Respiratory rate Systolic And Diastolic Provider Name and Address Organization Details Last Updated DateTime 4 162.56 cm 23.5 kg/m2 43358.1 5 g 97.8 [degF] 53 /min 91 % 18 /min 110/76 mm[Hg] Daria MonLaurentoseas [facility] - [facility] 4 10:03:54 Social History Question Answer Notes LastModified by Organizat ion Details LastModified Time Tobacco Smoking Status Current Every Day Smoker Isabela rosenberg, [place] - [facility] 04/05/2016 10:31:38 Do You Have An Advance Directive? No Information not available 04/05/2016 Are You Blind Or Do You Have Difficulty Seeing? No [email or web address] Information not available 06/02/2020 Is Blood Transfusion Acceptable In An Emergency? Yes Information not available 06/02/2020 What Is Your Level Of Caffeine Consumption? Heavy Information not available 04/05/2016 How Much Tobacco Do You Chew? None Information not available 04/05/2016 In The 14 Days Before Symptom Onset, Have You Had Close Contact With A Laboratory-confir med COVID-19 While That Case Was Ill? No [email or web address] Information not available 03/12/2022 In The 14 Days Before Symptom Onset, Have You Had Close Contact With A Person Who Is Under Investigation For COVID-19 While That Person Was Ill? No [email or web address] Information not available 03/12/2022 Have You Been To An Area Known To Be High Risk For COVID-19? No [email or web address] Information not available 03/12/2022 Are You Deaf Or Do You Have Serious Difficulty Hearing? No [email or web address] Information not available 06/02/2020 What Type Of Diet Are You Following? REGULAR Information not available 06/02/2020 Have You Processed Blood Or Body Fluids From An Ebola Virus Disease Patient Without Appropriate PPE? No [email or web address] Information not available 03/12/2022 Do You Reside In Or Have You Traveled To An Area Where Ebola Virus Transmission Is Active? No [email or web address] Information not available 03/12/2022 What Is The Highest Grade Or Level Of School You Have Completed Or The Highest Degree You Have Received? SV03058-5 [email or web address] Information not available 06/02/2020 How Many Days Of Moderate To Strenuous Exercise, Like A Brisk Walk, Did You Do In The Last 7 Days? 0 Information not available 06/02/2020 On Those Days That You Engage In Moderate To Strenuous Exercise, How Many Minutes, On Average, Do You Exercise? 0 [email or web address] Information not available 06/02/2020 Have There Been Any Changes To Your Family Or Social Situation? No [email or web address] Information no t available 03/12/2022 How Hard Is It For You To Pay For The Very Basics Like Food, Housing, Medical Care, And Heating? Not Very Hard [email or web address] Information not available 03/12/2022 What Is The Fluoride Status Of Your Home? Fluoridated [email or web address] Information not available 03/12/2022 Hard Of Hearing Or Deaf In One Or Both Ears? No Information not available 04/05/2016 Have You Recently Or Are You Planning To Travel To An Area With Zika Virus? No [email or web address] Information not available 03/12/2022 Legally Blind In One Or Both Eyes? No Information no t available 04/05/2016 Live Alone Or With Others? With Others Information not available 04/05/2016 Last Menstrual Period? 10/29/2021 [email or web address] Information not available 03/12/2022 Do You Have A Medical Power Of Bulk Plant Agent? No [email or web address] Information not available 03/12/2022 What Was The Date Of Your Most Recent Tobacco Screening? 06/18/2024 Information not available 06/18/2024 How Many Children Do You Have? 4 Information not available 04/05/2016 What Is Your Current Pack Years? 20-29packyears [email or web address] Information not available 03/12/2022 Performs Monthly Self-breast Exam? Yes [email or web address] Information no t available 06/02/2020 Do You Use Protection During Sex? Always [email or web address] Information not available 06/02/2020 Do You Use Protection Against STDs? No [email or web address] Information not available 03/12/2022 What Is Your Relationship Status? [email or web address] Information not available 03/12/2022 Seat Belts Used Routinely Yes Information not available 04/05/2016 Are You Sexually Active? Yes [email or web address] Information not available 06/02/2020 Do You Have Smoke And Carbon Monoxide Detectors In Your Home? Yes [email or web address] Information not available 03/12/2022 At What Age Did You Start Smoking Tobacco? 11 [email or web address] Information not available 06/02/2020 Are You Passively Exposed To Smoke? Yes [email or web address] Information no t available 03/12/2022 How Much Tobacco Do You Smoke? 1 PPD Information not available 04/05/2016 General Stress Level Low [email or web address] Information not available 06/02/2020 Do You Use Sunscreen Routinely? No [email or web address] Information not available 06/02/2020 Has Tobacco Cessation Counseling Been Provided? Yes [email or web address] Information not available 07/22/2023 On What Date Was Tobacco Cessation Counseling Provided? 06/18/2024 Information not available 06/18/2024 How Many Years Have You Smoked Tobacco? 30 [email or web address] Information not available 03/12/2022 Do You Have Difficulty Walking Or Climbing Stairs? No [email or web address] Information not available 06/02/2020 What Contraceptive Method Was Reported At Start Of This Visit? Female Sterilization [email or web address] Information not available 03/12/2022 What Contraceptive Method Was Reported At End Of This Visit? Female Sterilization [email or web address] Information not available 03/12/2022 Do You Want To Talk About Contraception Or Prevention During Your Visit Today? No - I Do Not Want To Talk About Contraception Today Because I Am Here For Something Else [email or web address] Information not available 03/12/2022 How Was The Contraceptive Method Provided? Provided On Site [email or web address] Information no t available 03/12/2022 Do You Have Any Future Plans To Get ? No, I Don't Want To Become [email or web address] Information not available 03/12/2022 Sex: Female Functional Status Question Answer Note LastModified by Stupil Details LastModified Time Do you or have you ever used smokeless tobacco? Never used smokeless tobacco [email or web address] Information not available 06/02/2020 Are you currently employed? No Information not available 04/05/2016 Do you have transportation difficulties? No [email or web address] Information not available 03/12/2022 Are you able to care for yourself independently? Yes Information not available 04/05/2016 Do you have difficulty dressing, bathing, grooming, or toileting? No [email or web address] Information not available 06/02/2020 Do you or have you ever used e-cigarettes or vape? Current user of electronic cigarettes [email or web address] Information not available 03/12/2022 What is your exercise level? None Information not available 04/05/2016 Do you use any illicit or recreational drugs? No [email or web address] Information not available 03/12/2022 Do you or have you ever used any other forms of tobacco or nicotine? Yes Information not available 03/12/2022 What is your level of alcohol consumption? Occasional Information not available 04/05/2016 What is your status? Not Information no t available 03/12/2022 Are you able to walk independently without assistance or assistive devices? YESWOREST [email or web address] Information not available 06/02/2020 Do you have difficulty doing errands alone? No [email or web address] Information not available 06/02/2020 Mental Status Question Answer Note LastModified by Organizat ion Details LastModified Time Do you feel stressed (tense, restless, nervous, or anxious, or unable to sleep at night)? [id number] [email or web address] Information not available 06/02/2020 Do you have difficulty concentrating, remembering or making decisions? No [email or web address] Information no t available 06/02/2020 Family History Relationship Description Onset Age of this Age Resolved Age Notes LastModified by Organization Details LastModified Time Mother Congestive heart failure [email or web address] Not available 2016 08:11:25 Mother Essential hypertension [email or web address] Not available 08:11:34 Mother Hypercholest erolemia [email or web address] Not available 2016 08:13:32 Mother Malignant neoplasm of lung [email or web address] Not available 2021 15:28:55 Father Family history [...] Response Pancreatitis N Coronary Artery Disease N Gout N Other N Atrial Fibrillation N congenital heart disease N Blood Diseases N Kidney Stones N Hyperthyroidism N Rheumatoid arthritis N Blood [...] Than N Lung Disease N Hypothyroidism N Developmental or Behavioral Disorders N Defects or Inherited Disease N Breast Problem N Difficulty Swallowing N Ovarian Cyst N Anesthesia Complications N Testosterone Deficiency N Meniere's disease N Head Injury/Concussion N Interstitial Cystitis N Congenital Anomalies N Hypoglycemia N Blood clot N Vitamin D Deficiency N Cellulitis N Endometriosis N Fracture N Bladder or Kidney Problems N Liver Disease N Schizophrenia N Panic [...] Congestive Heart Failure (CHF) N Syncope N Insomnia N Hyperlipidemia N Eczema N Diverticulitis N Dementia N Attention Deficient Disorder N Abuse/Domestic Violence N Ulcerative colitis N Cerebrovascular Disease N Depression N Guillain-[place] N Sleep Apnea N Aneurysm N Heart Disease N Bronchitis N Suicidal Ideation N Pre-Eclampsia N Hypertension [...] Recorded Time Tdap [address] [facility] 05/01/2019 02:21:37 Influenza, split virus, quadrivalent, preservative [address] [facility] 04/17/2019 03:54:43 Influenza, split virus, trivalent, preservative 4 completed Daria [place], [place] - [facility] 02/20/2024 14:53:30 COVID-19, mRNA, LNP-S, PF, 100 mcg/0.5mL dose or 50 mcg/0.25mL dose 2 completed Archana Frederick null, [place] - [facility] 07/22/2023 16:21:29 Pneumococcal conjugate PCV20, polysaccharide QSV872 conjugate, adjuvant, PF 2 completed Archana [place] - [facility] 07/22/2023 16:21:29 Influenza, split virus, quadrivalent, PF 2 completed Archana [place] - [facility] 07/22/2023 16:21:29 Tdap 4 completed Avelina Lamas, CASSIUS [address], [place], [address], [place] [facility] 07/23/2023 05:21:42 Hep A, adult 4 completed Avelina Lamas APRN [address], [place], [address], [place] [facility] 07/23/2023 05:22:06 Past Encounters Encounter ID Performer Location Encounter Start Date Encounter Closed Date Diagnosis/Indication Diagnosis SNOMED-CT Code Diagnosis ICD10 Code Diagnosis IMO Codes Diagnosis Note [id number] Gregory Elizalde [address] [place] [address] 04/05/2016 10:05:22 04/05/2016 11:01:43 Epigastric pain 40491806 R10.13 Start Prilosec 20mg twice daily. [id number] Gregory Elizalde [address] [place] [address] 04/19/2016 07:52:22 04/19/2016 08:44:27 Type B viral hepatitis 51217518 B19.10 [id number] Riddhi Knox MD [address] [place] [address] 04/25/2016 08:30:39 04/25/2016 09:40:52 Adult health examination 943016114 Z00.00 [id number] Riddhi Knox MD [address] [place] [address] 01/30/2017 14:56:11 01/30/2017 15:56:54 Influenza vaccine needed 5027333472 106 Z23 Major depr essive disorder 479149528 F32.9 Hyperglycemia 11766249 R 73.9 [id number] Cody Swann MD [address] [place] [address] 03/06/2017 10:38:42 03/06/2017 11:11:28 Upper respiratory infection 21246639 J06.9 Acute bron chitis with bronchospasm 73820909 J20.9 Pruritic rash 34279444 L 28.2 [id number] Riddhi Knox MD [address] [place] [address] 04/24/2017 15:36:54 04/24/2017 16:35:48 Adult health examination 313391360 Z00.00 Sinusitis 72444971 J32.9 Hyperlipid emia screening 352914207 Z13.058 [id number] Riddhi Knox MD [address] [place] [address] 05/14/2017 08:59:46 05/14/2017 09:49:48 Blood glucose outside reference range 660719861 R73.09 Mixed hyperlipidemia 267 531321 E78.2 Tobacco user 852149162 Z 72.0 [id number] Riddhi Knox MD [address] [place] [address] 09/15/2017 16:51:43 09/15/2017 17:34:12 Pain of multiple joints 93914312 M25.50 Nicotine dependence 5629 4008 F17.200 Lateral epicondylitis 20 7766755 M77.12 Pruritic rash 16803153 L 28.2 [id number] Riddhi Knox MD [address] [place] [address] 10/13/2017 16:55:14 10/13/2017 17:48:28 Pain of multiple joints 52340772 M25.50 Gastroesop hageal reflux disease without esophagitis 125417738 K21.9 Asthma 941169393 J45.90 9 Nicotine dependence 5629 4008 F17.583 [id number] Karen Durán [facility] [address] [place] [address] 05/19/2020 14:24:48 05/19/2020 15:15:26 Viral screening 860380757 Z11.52 Body mass index 20-24 - normal 056987024 Z68.22 Streptococ kasey sore throat 85421875 J02.0 [id number] CASSIUS Matt CVOR NURSE [address] [place] [address] [place] [address] 06/02/2020 16:01:47 06/02/2020 16:56:06 Routine gynecologic examination done 8742039043 9101 Z01.419 Examinatio n of blood pressure 597812893 Z01.30 BP goal < 140/90 Depression screening 171 547554 Z13.31 Diet education 68374177 Z71.3 5330-2649 calorie diet recommende d with emphasis on low saturated fat, low carbohydra te, and adequate protein intake. She does not require dietary consult. Counseling 350112977 Z71 .82 Exercise counsellin benji. Patient encouraged to exercise 30 minutes 5 days a week. Screening for malignant neoplasm of cervix 873488010 Z12.4 Z11.51 Z11.8 History of tubal ligation 186364553 Z98.51 Screening mammography 24 472015 Z12.31 Malignant neoplasm of thyroid gland 809633566 C73 History of hepatitis B 819213471 Z86.19 Body mass index 20-24 - normal 330038719 Z68.23 Venereal d isease screening 921920725 Z11.3 Cigarette smoker 4415629 7 F17.210 Tobacco use discourage d. Techniques for quitting smoking discussed including pharmaceut icals (Nicotine patches, gum, Zyban, and Chantix) and behavioral therapy (Otoniel Almeida). Immediate and termination clerk cardiovasc ular and respirator y benefits of smoking cessation discussed. Lung cancer risk reduction also discussed. [id number] CASSIUS Matt CVOR NURSE [address] [place] [address] [place] [address] 03/12/2022 14:53:10 03/12/2022 16:15:31 Routine gynecologic examination done 2465927147 9101 Z01.419 Examinatio n of blood pressure 060261660 Z01.30 BP goal < 140/90 Depression screening 171 344677 Z13.31 Diet education 62372622 Z71.3 3598-2271 calorie diet recommende d with an emphasis on reducing sugar and refined carbohydra [place], avoiding highly processed foods and decreasing saturated fats. She does not require dietary consult. Counseling 848502774 Z71 .82 Exercise counseleric leblanc. Patient encouraged to exercise 30 minutes 5 days a week. Vaccine de clined by patient 4604163594 02 Z28.21 Screening for malignant neoplasm of cervix 373091482 Z12.4 Z11.8 Abnormal u terine bleeding 3243038805 9100 N93.9 Screening for malignant neoplasm of breast 343032420 Z12.39 Body mass index 20-24 - normal 205831764 Z68.23 History of tubal ligation 678383306 Z98.51 History of malignant neoplasm of thyroid 441588181 Z85.850 Cigarette smoker 1051049 7 F17.210 Tobacco use discourage d. Techniques for quitting smoking discussed including pharmaceut icals (Nicotine patches, gum, Zyban, and Chantix) and behavioral therapy (Otoniel Almeida). Immediate and senior living cardiovasc ular and respirator y benefits of smoking cessation discussed. Lung cancer risk reduction also discussed. [id number] CASSIUS Matt CVOR NURSE [address] [place] [address] [place] [address] 04/04/2022 11:08:39 04/04/2022 12:07:54 High grade squamous intraepithelial lesion on cervical Papanicolaou smear 8445288169 9107 R87.613 R87.810 Malignant neoplasm of thyroid gland 692758714 C73 [id number] DO Hilaria [place] CVOR NURSE [address] [place] [address] HEATH Man [address] 7 04/19/2022 11:43:37 04/19/2022 12:06:06 Pre-surgery evaluation 563494124 Z01.818 High grade squamous intraepithelial lesion on cervical Papanicolaou smear 4219187134 9107 R87.613 Cervical intraepithelial neoplasia grade III with severe dysplasia 558629426 D06.9 Scheduled for [facility] [place] [id number] DO Jose E Dorsey CVOR NURSE [address] [place] [address] HEATH Man [address] 7 05/02/2022 14:03:40 05/02/2022 14:35:56 Surgical follow-up 041349355 Z09 Cervical intraepithelial neoplasia grade III with severe dysplasia 594974571 D06.9 [id number] DO Leslie [place] CVOR NURSE [address] [place] [address] HEATH Man [address] 7 05/21/2022 13:57:29 05/21/2022 14:56:25 Surgical follow-up 570136186 Z09 Candidiasis of skin 4988 3006 B37.2 [id number] CASSIUS Matt CVOR NURSE [address] [place] [address] HEATH Man [address] 7 07/22/2023 16:03:21 07/22/2023 17:13:03 Screening for malignant neoplasm of cervix 840947532 Z12.4 Z11.8 History of tubal ligation 014702414 Z98.51 History of dysplasia of cervix 871943459 Z87.410 JERED 3 in 2021 Dyspareunia 17431686 N94 .10 Menopausal syndrome 1237 49490 N95.9 Cigarette smoker 5741512 7 F17.210 Tobacco use discourage d. Techniques for quitting smoking discussed including pharmaceut icals (Nicotine patches, gum, Zyban, and Chantix) and behavioral therapy (Otoniel Almeida). Immediate and senior living cardiovasc ular and respirator y benefits of smoking cessation discussed. Lung cancer risk reduction also discussed. History of hepatitis B 126966599 Z86.19 History of malignant neoplasm of thyroid 097928105 Z85.401 [id number] Vincent Mayer MD [place] [address] [place] [address] 10/14/2023 09:10:06 10/14/2023 10:42:44 Abdominal pain 05663074 R10.9 XR showed significan t constipati on [id number] Vincent Mayer MD [address] [place] [address] 10/16/2023 10:36:23 10/16/2023 12:43:15 Menometrorrhagia 857934706 N92.1 [id number] Vincent Mayer MD [address] [place] [address] 11/04/2023 16:42:17 11/04/2023 17:44:28 Abdominal pain 60705806 R10.9 Pt is following with ObGyn at this time; imaging reviewed with Pt; no anatomic abnormalit ies at this time. Will continue to follow closely. [id number] MD Jose E Tran CVOR NURSE [address] [place] [address] [place] [address] 11/13/2023 13:41:41 11/13/2023 14:29:43 History of dysplasia of cervix 102353898 Z87.410 Contact de rmatitis caused by urushiol from [place] 665989966 L25.5 Postmenopa usal bleeding 66588418 N95.0 Screening for malignant neoplasm of colon 546735755 Z12.11 Screening for malignant neoplasm of breast 336851200 Z12.39 [id number] Vincent Mayer MD [place] [address] [place] [address] 12/19/2023 16:23:07 12/31/2023 14:36:58 Pain due to neoplastic disease 8009118408 9102 G89.3 [id number] Vincent Mayer MD [place] [address] [place] [address] 01/02/2024 09:11:10 01/02/2024 10:29:44 Malignant neoplasm of thyroid gland 003431016 C73 actively following with Onc; chemo regimen to be decided in the next 2 weeks. Pain due t o neoplastic disease 9325714753 9102 G89.3 Long-term drug therapy 317740693 Z79.131 [id number] Vincent Mayer MD [address] [place] [address] 01/12/2024 13:57:05 01/12/2024 15:40:14 Pain due to neoplastic disease 5439355913 9102 G89.3 Chemotherapy 084923289 Z 51.11 [id number] Vincent Mayer MD [address] [place] [address] 02/02/2024 16:30:31 02/04/2024 11:43:12 Chemotherapy 921084050 Z51.11 Pt tolerated well [id number] Vincent Mayer MD [address] [place] [address] 02/20/2024 14:34:57 02/20/2024 14:53:38 Influenza vaccine needed 5566384624 106 Z23 [id number] Vincent Mayer MD [address] [place] [address] 03/04/2024 16:42:19 03/04/2024 17:02:28 Asthma 196432912 J45.909 Pain due t o neoplastic disease 4572971962 9102 G89.3 [id number] Vincent Mayer MD [address] [place] [address] 03/25/2024 09:58:39 03/25/2024 10:35:14 Pain due to neoplastic disease 8693183655 9102 G89.3 Chronic anxiety 33120755 9 F41.9 [id number] Vincent Mayer MD [address] [place] [address] 05/27/2024 13:32:48 05/27/2024 14:48:25 Chronic back pain 153707182 G89.29 Pain due t o neoplastic disease 5930359384 9102 G89.3 [id number] Vincent Mayer MD [facility] [address] [place] [address] 06/18/2024 16:04:50 06/18/2024 16:45:54 Bronchitis 58856558 J40 Pain due t o neoplastic disease 9486471555 9102 G89.3 refill requested so Pt does not have to return in 4 days Health Concerns Section Related Observation LastModified by Organization Detai ls LastModified Time None Recorded Concern Status LastModified by Organization Details LastModified Time None Recorded Advance Directives Directive N: Payers Insurance Date Sequence Insurance Name Policy Number Policy Bernard Covered Member ID Bernard Member ID Guarantor Name 07/22/2023 1 [facility] (MEDICAID REPLACEMENT - HMO) Latrice Finnegan [id number] Latrice Finnegan 05/19/2020 1 *SELF PAY* Ca kervin Finnegan 04/19/2022 1 [facility] [id number] Latrice Finnegan [id number] Latrice Finnegan 06/18/2024 1 [place] [id number] Latrice Finnegan [id number] Latrice Finnegan 06/29/2024 1 [facility] Latrice Finnegan [id number] Latrice Finnegan 06/29/2024 [facility] Latrice Finnegan [id number] Latrice Finnegan 06/30/2024 [place] Latrice Finnegan [id number] Latrice Finnegan 08/22/2020 1 UNSPECIFIED REMIT PAYOR [...] reviewed and appropriate. Vincent Mayer MD [address], [place], [address], [facility] 03/25/2024 13:30:14 03/25/2024 text/html Pt [...] reviewed and appropriate. Vincent Mayer MD [address], [place], [address], [facility] 03/25/2024 10:46:47 05/27/2024 text/html ROS [...] appropriate. Vincent Mayer MD [address], [place], [address], [facility] 05/27/2024 14:40:14 06/18/2024 text/html Pt [...] multiple sick contacts. Vincent Mayer MD [address], [place], [address], [facility] 06/18/2024 18:36:50 OBGyn Episode No OBEpisode recorded.
--- OUTSIDE RECORDS SUMMARY | 2025-03-22 09:58 | XMS_ITS | Encounter Summary ---
Author Organization Healthcare Address [address] [place] [address] Care Team Providers Care Aircraft Inspection Record Clerk Name Role Phone Sergey Oh MD Primary Care Provider [phone] Jean Mak MD Unavailable [phone] Alice Chou RN Unavailable Unavailable Encounter Details Date Type Department Care Team (Late st Contact Info) Description 01/31/2025 Results Follow-Up [facility] Endocrinology [address] [place] [address] Danny Coon MD [address] [place] [address] Social History Tobacco Use Types [...] Upcoming Encounters Date Type Department Care Team ([facility] Contact Info) Description 03/30/2025 8:30 AM EST Appointment [facility] 2 [address] [place] [address] 2025 9:00 AM EST Appointment [facility] 2 [address] [place] [address] 04/14/2025 7:45 AM EST Clinical Support [facility] [address] [place] [address] 04/14/2025 8:00 AM EST Office Visit [facility] [address] [place] [address] Edison Skaggs MD 800 [place] [address] 04/14/2025 9:30 AM EST Appointment [facility] [address] [place] [address] 04/16/2025 10:30 AM EST Appointment [facility] [address] [place] [address] 04/28/2025 8:30 AM EST Appointment [facility] [address] [place] [address] 04/30/2025 10:00 AM EST Appointment [facility] 1 [address] [place] [address] 06/29/2025 12:30 PM EDT Clinical Support [facility] [address] [address] 06/29/2025 1:00 PM EDT Office Visit [facility] [address] [address] Danny Coon MD [address] [address] documented as of this encounter [...] documented as of this encounter Care Teams Aircraft Inspection Record Clerk Relationship Specialty Start Date End Date Sergey Oh MD PCP - General 11/13/21 Jean Mak MD 800 [facility] Cancer [address] [address] Surgeon Otolaryngology 11/21/21 Alice Chou RN None None Registered Nurse 02/14/25 documented as of this encounter
--- OUTSIDE RECORDS SUMMARY | 2025-03-22 09:58 | XMS_ITS ---
Author Organization [facility] Address [address] [place] [id number] Care Team Providers Care Drum Saw Operator Name Role Phone Sergey Oh MD Primary Care Provider [phone] Jean Mak MD Unavailable [phone] Alice Chou RN Unavailable Unavailable High Risk Care Management Status:Identified (Enrolling) Program category:Care Coordination Start date:02/14/2025 Enrollment reason:Identified using referral data Case Team Name Relationship Phone Alice Chou RN(Responsible Staff) Registered Nurse Continued Care and Services Coordination
--- OUTSIDE RECORDS SUMMARY | 2025-03-22 09:58 | XMS_ITS | Encounter Summary ---
Author Organization [facility] Address [address] [place] [address] Care Team Providers Care Systems Programmer Analyst Name Role Phone Sergey Oh MD Primary Care Provider [phone] Jean Mak MD Unavailable [phone] Encounter Details Date Type Department Care Team (Latest Contact Info) Description 01/31/2025 Travel Social History Tobacco Use Types Packs/Day [...] Upcoming Encounters Date Type Department Care Team ( Contact Info) Description 03/30/2025 8:30 AM EST Appointment [facility] 2 [address] [place] [address] 2025 9:00 AM EST Appointment [facility] 2 [address] [place] [address] 04/14/2025 7:45 AM EST Clinical Support [facility] [address] [place] [address] 04/14/2025 8:00 AM EST Office Visit [facility] [address] [place] [address] Edison Skaggs MD 800 [place] [address] 04/14/2025 9:30 AM EST Appointment [facility] [address] [place] [address] 04/16/2025 10:30 AM EST Appointment [facility] [address] [place] [address] 04/28/2025 8:30 AM EST Appointment [facility] [address] [place] [address] 04/30/2025 10:00 AM EST Appointment [facility] 1 [address] [place] [address] 06/29/2025 12:30 PM EDT Clinical Support [facility] [address] [address] 06/29/2025 1:00 PM EDT Office Visit [facility] [address] [address] Danny Coon MD [address] [address] documented as of this encounter [...] documented as of this encounter Care Teams Systems Programmer Analyst Relationship Specialty Start Date End Date Sergey Oh MD PCP - General 11/13/21 Jean Mak MD 800 [facility] Cancer [address] [address] Surgeon Otolaryngology 11/21/21 documented as of this encounter
--- OUTSIDE RECORDS SUMMARY | 2025-03-22 09:59 | XMS_ITS | Encounter Summary ---
Author Organization Healthcare Address [address] [place] [address] Care Team Providers Care Administrative Liaison Name Role Phone Pcp, No Primary Care Provider Unavailabl Sergey Oreilly MD Primary Care Provider [phone] Jean Mak MD Unavailable [phone] Alice Chou RN Unavailable Unavailable Encounter Details Date Type Department Care Team (Late Contact Info) Description 10/29/2021 Lab Requisition [facility] 800 [place] [address] Jean Mak MD 800 [facility] [address] [place] [address] Localized swelling, mass and lump, neck [...] EST Appointment [facility] 2 [address] [place] [address] 2025 9:00 AM EST Appointment [facility] 2 [address] [place] [address] 04/14/2025 7:45 AM EST Clinical Support [facility] [address] [place] [address] 04/14/2025 8:00 AM EST Office Visit [facility] [address] [place] [address] Edison Skaggs MD 800 [place] [address] 04/14/2025 9:30 AM EST Appointment [facility] [address] [place] [address] 04/16/2025 10:30 AM EST Appointment [facility] [address] [place] [address] 04/28/2025 8:30 AM EST Appointment [facility] [address] [place] [address] 04/30/2025 10:00 AM EST Appointment [facility] 1 [address] [place] [address] 06/29/2025 12:30 PM EDT Clinical Support [facility] [address] [address] 06/29/2025 1:00 PM EDT Office Visit [facility] [address] [address] Danny Coon MD [address] [place] [address] documented as of this encounter Procedures Procedure Name Priority Date/Time Associated Diagnosis Comments CYTOLOGY CONSULT Routine 10/29/2021 10:3 1 AM EDT Localized swelling, mass and lump, neck documented in this encounter Results * Cytology Consult (10/29/2021 10:31 AM EDT) Case Report Cytology Case: [id number] Authorizing Provider: Jean Mak MD Collected: 10/29/2021 1031 Ordering Location: [facility] H Lab Received: 10/29/2021 1031 Pathologist: Sourav Olvera MD Specimen: Neck, FNA, [id number] 10/30/2021 12:43 PM EDT [facility] Final Diagnosis A. NECK, RIGHT, FINE NEEDLE ASPIRATION (OUTSIDE CASE [id number], COLLECTED 09/04/2021): - MARKEDLY ATYPICAL CELLS, SUSPICIOUS FOR INVOLVEMENT BY PAPILLARY THYROID CARCINOMA 10/30/2021 12:43 PM EDT [facility] at 1243 EDT Clinical Information R22.1 - Localized swelling, mass and lump, neck [ICD-10-CM] 10/30/2021 12:43 PM EDT HEALTHCARE LAB Gross Description A. [id number] For clinical data and diagnosis (SUSPICIOUS) for this specimen ([id number]/FN A) see final report issued by [facility] Pathology Department. 10/30/2021 12:43 PM EDT [facility] Fine Needle Aspirate Neck structure / Unknown 10/29/2021 10:31 AM EDT 10/29/2021 10:31 AM EDT Jean Mak MD LAB PATHOLOGY ORDERABLES Fin al Result [facility] [address] [place] [address] documented in this encounter Visit Diagnoses Diagnosis Localized swelling, mass and lump, neck Swelling, mass, or lump in head and neck documented in this encounter Care Teams Administrative Liaison Relationship Specialty Start Date End Date Pcp, No 800 [place] [address] PCP - General Family Medicine 03/31/21 11/12/21 Sergey Oh MD [address] [place] [address] PCP - General 11/13/21 Jean Mak MD [address] [place] [address] [address] Surgeon Otolaryngology 11/21/21 Alice Chou, RN None None Registered Nurse 02/14/25 documented as of this encounter
--- OUTSIDE RECORDS SUMMARY | 2025-03-22 09:59 | XMS_ITS | Encounter Summary ---
Author Organization Healthcare Address [address] [place] [address] Care Team Providers Care Manager Portable Name Role Phone Pcp, No Primary Care Provider Unavailabl Sergey Oreilly MD Primary Care Provider [phone] Jean Mak MD Unavailable [phone] Alice Chou RN Unavailable Unavailable Encounter Details Date Type Department Care Team (Late Contact Info) Description 05/22/2021 Orders Only External Location 800 [place] [address] Provider, External Social History Tobacco Use Types [...] EST Appointment [facility] 2 [address] [place] [address] 2025 9:00 AM EST Appointment [facility] 2 [address] [place] [address] 04/14/2025 7:45 AM EST Clinical Support [facility] [address] [place] [address] 04/14/2025 8:00 AM EST Office Visit [facility] [address] [place] [address] Edison Skaggs MD 800 [place] [address] 04/14/2025 9:30 AM EST Appointment [facility] [address] [place] [address] 04/16/2025 10:30 AM EST Appointment [facility] [address] [place] [address] 04/28/2025 8:30 AM EST Appointment [facility] [address] [place] [address] 04/30/2025 10:00 AM EST Appointment [facility] 1 [address] [place] [address] 06/29/2025 12:30 PM EDT Clinical Support [facility] 800 [facility], [address] [place] [address] 06/29/2025 1:00 PM EDT Office Visit [facility] [address] [address] Danny Coon MD [address] [place] [address] documented as of this encounter Procedures [...] filedocumented in this encounter Care Teams Manager Portable Relationship Specialty Start Date End Date Pcp, No 800 [place] [address] PCP - General Family Medicine 03/31/21 11/12/21 Sergey Oh MD 800 [place] [address] PCP - General 11/13/21 Jean Mak MD 800 [facility] Cancer [address] [address] Surgeon Otolaryngology 11/21/21 Alice Chou RN None None Registered Nurse 02/14/25 documented as of this encounter
--- OUTSIDE RECORDS SUMMARY | 2025-03-22 09:59 | XMS_ITS ---
Author Organization [facility] Address [address] [place] [address] Care Team Providers Care Legal Consultant Name Role Phone Sergey Oh MD Primary Care Provider [phone] Jean Mak MD Unavailable [phone] Alice Chou RN Unavailable Unavailable Active Problems Problem Noted Date Diagnosed Date Hypotension due to hypovolemia 02/13/2025 Hypotension 02/13/2025 Lymph node enlargement 02/13/2025 Encounter for antineoplastic chemotherapy 2023 Vertigo 01/15/2024 [...] hypothyroidism 10/23/2019 Current Treatment and Therapy Plans (ONC) Med Onc Outpatient Electrolyte Replacement Protocol for OXALIplatin* Plan Start Date:03/17/2025 Plan Provider:Caroline Means MD Linked Problems 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 mFOLFOX6 + Bevacizumab: Leucovorin + Fluorouracil + OXALIplatin + Bevacizumab Every 14 Days x 2 Every 28 Days* Plan Start Date:03/16/2025 Plan Provider:Franchesca Delacruz MD Linked Problems Malignant neoplasm of sigmoi d colon (CMS/HCC) Treatment Medications Current Day (Day 1 5, Cycle 1 - Planned for 03/30/2025) Next Day (Day 17, Cycle 1 - Planned for 2025) 5-FU (Adrucil) infusion - fo r home use ([facility] supplied) CADD [id number] CHEMO INFUSION ([facility] SUPPLIED) CADD ORDERABLEbevacizumab-awwb (MVASI)bevacizumab-awwb (Mvasi) IVPBOxaliplatin (Eloxatin)OXALIplatin (Eloxatin) IVPB bevacizumab-awwb (Mvasi) 350 mg in sodium chloride 0.9 % 100 mL IVPBfluorouracil (Adrucil) 4,000 mg in sodium chloride 0.9 % 101 mL infusion - for home useOXALIplatin (Eloxatin) 142.5 mg in dextrose 5 % 250 mL IVPB No medications scheduled. Past Treatment and Therapy Plans Infusion Treatment 1 Plan Name Start Date Discontinue Date Treatment Medications Discontinue Reason Plan Provider THYROTROPIN GEOFFREY (THYROGEN) 11/19/2021 01/15/2024 No medications scheduled. Therapy Complete [facility] Treatment Plan Name Start Date Discontinue Date Treatment Medications Discontinue Reason Plan Provider Cycles mFOLFOX6: Leucovorin + Fluorouracil + OXALIplatin Every 14 Days x 2 Every 28 Days 4 06/23/2024 5-FU (Adrucil) infusion - for home use ([facility] supplied) CADD 100MLfluoroura cil (Adrucil)OXALI platin (Eloxatin) IVPB Therapy Complete Franchesca Delacruz MD 3 of 3 cycles started Lifetime Dose Tracking * Chemical Lifetime Dose Automatic Entry Manual Entr y Fluoro Time 0.053 minutes 0.053 minutes 0 minutes Air Kerma 0.15 mGy 0.15 mGy 0 mGy CTDIvol 127 mGy 0 mGy 127 mGy Radiation (DLP) 538 mGy-cm 0 mGy-cm 538 mGy-cm Resolved Problems Problem Noted Date Diagnosed Date Resolved Date Second hand smoke exposure 03/13/2022 0 12/19/2024 Dysphonia 02/25/2022 12/19/[address] 11/23/2021 12/19/2024 Arthritis 11/13/2021 12/19/2024
--- OUTSIDE RECORDS SUMMARY | 2025-03-22 09:59 | XMS_ITS | Encounter Summary ---
Author Organization Healthcare Address [address] [place] [address] Care Team Providers Care Library Historian Name Role Phone Pcp, No Primary Care Provider Unavailabl Sergey Oreilly MD Primary Care Provider [phone] Jean Mak MD Unavailable [phone] Alice Chou RN Unavailable Unavailable Encounter Details Date Type Department Care Team (Late Contact Info) Description 06/30/2020 Orders Only External Location 800 [place] [address] Provider, External Social History Tobacco Use Types [...] EST Appointment [facility] 2 [address] [place] [address] 2025 9:00 AM EST Appointment [facility] 2 [address] [place] [address] 04/14/2025 7:45 AM EST Clinical Support [facility] 800 [place] [address] 04/14/2025 8:00 AM EST Office Visit [facility] [address] [place] [address] Edison Skaggs MD 800 [place] [address] 04/14/2025 9:30 AM EST Appointment [facility] [address] [place] [address] 04/16/2025 10:30 AM EST Appointment [facility] [address] [place] [address] 04/28/2025 8:30 AM EST Appointment [facility] [address] [place] [address] 04/30/2025 10:00 AM EST Appointment [facility] 1 [address] [place] [address] 06/29/2025 12:30 PM EDT Clinical Support [facility] 800 [facility] [address] [place] [address] 06/29/2025 1:00 PM EDT Office Visit [facility] [address] [address] Danny Coon MD [address] [place] [address] documented as of this encounter Procedures [...] on filedocumented in this encounter Care Teams Library Historian Relationship Specialty Start Date End Date Pcp, No 800 [place] [address] PCP - General Family Medicine 03/31/21 11/12/21 Sergey Oh MD [address] [place] [address] PCP - General 11/13/21 Jean Mak MD 800 [facility] [address] [address] Surgeon Otolaryngology 11/21/21 Alice Chou, ROSHNI None None Registered Nurse 02/14/25 documented as of this encounter
--- OUTSIDE RECORDS SUMMARY | 2025-03-22 09:59 | XMS_ITS | Encounter Summary ---
Author Organization Healthcare Address [address] [place] [address] Care Team Providers Care Vector Control Specialist Name Role Phone Pcp, No Primary Care Provider Unavailabl Sergey Oreilly MD Primary Care Provider [phone] Jean Mak MD Unavailable [phone] Alice Chou RN Unavailable Unavailable Encounter Details Date Type Department Care Team (Late st Contact Info) Description 10/31/2021 Lab Requisition [facility] [address] [place] [address] Jean Mak MD 800 [facility] [address] [place] [phone] Nontoxic single thyroid nodule Social History [...] Wish to be (Past 1 Month) No 022 1:13 PM EDT Anna Hathaway 2. Non-Specific Active Suici juanis Thoughts (Past 1 Month) No 11/02/2021 1:13 PM EDT Kendal Hathaway 6. Suicidal Behavior (Lifetime) No 1:13 PM EDT Anna Hathaway documented as of this encounter Plan of Treatment Upcoming Encounters Date Type Department Care Team (Late st Contact Info) Description 03/30/2025 8:30 AM EST Appointment [facility] [address] [place] [address] 2025 9:00 AM EST Appointment [facility] [address] [place] [address] 04/14/2025 7:45 AM EST Clinical Support [facility] [address] [place] [address] 04/14/2025 8:00 AM EST Office Visit [facility] [address] [place] [address] Edison Skaggs MD [address] [place] [address] 04/14/2025 9:30 AM EST Appointment [facility] [address] [place] [address] 04/16/2025 10:30 AM EST Appointment [facility] [address] [place] [address] 04/28/2025 8:30 AM EST Appointment [facility] [address] [place] [address] 04/30/2025 10:00 AM EST Appointment [facility] 1 [address] [place] [address] 06/29/2025 12:30 PM EDT Clinical Support [facility] 800 [facility], [address]nd [place] [address] 06/29/2025 1:00 PM EDT Office Visit [facility] [address] [address] Danny Coon MD [address] [phone] documented as of this encounter Visit Diagnoses Diagnosis Nontoxic single thyroid nodule Nontoxic uninodular goiter documented in this encounter Care Teams Vector Control Specialist Relationship Specialty Start Date End Date Pcp, No [address] [place] [address] PCP - General Family Medicine 03/31/21 11/12/21 Sergey Oh MD [address] [place] [address] PCP - General 11/13/21 Jean Mak MD 800 [facility] [address] [place] [address] Surgeon Otolaryngology 11/21/21 Alice Chou, RN None None Registered Nurse 02/14/25 documented as of this encounter
--- OUTSIDE RECORDS SUMMARY | 2025-03-22 09:59 | XMS_ITS | Encounter Summary ---
Author Organization Healthcare Address [address] [place] [address] Care Team Providers Care Networking Administrator Name Role Phone Pcp, No Primary Care Provider Unavailabl Sergey Oreilly MD Primary Care Provider [phone] Jean Mak MD Unavailable [phone] Alcie Chou RN Unavailable Unavailable Encounter Details Date Type Department Care Team (Late Contact Info) Description 08/09/2021 Orders Only External Location [address] [place] [phone] Provider, External Social History Tobacco Use Types [...] EST Appointment [facility] [address] [place] [address] 2025 9:00 AM EST Appointment [facility] 2 [address] [place] [address] 04/14/2025 7:45 AM EST Clinical Support [facility] [address] [place] [address] 04/14/2025 8:00 AM EST Office Visit [facility] [address] [place] [phone] Edison Skaggs MD 800 [place] [address] 04/14/2025 9:30 AM EST Appointment [facility] [address] [place] [address] 04/16/2025 10:30 AM EST Appointment [facility] [address] [place] [address] 04/28/2025 8:30 AM EST Appointment [facility] [address] [place] [address] 04/30/2025 10:00 AM EST Appointment [facility] 1 [address] [place] [phone] 06/29/2025 12:30 PM EDT Clinical Support [facility] 800 [facility], [address]nd [place] [address] 06/29/2025 1:00 PM EDT Office Visit [facility] [address] [address] Danny Coon MD [address] [place] [address] documented as of this encounter Procedures [...] on filedocumented in this encounter Care Teams Networking Administrator Relationship Specialty Start Date End Date Pcp, No [address] [place] [address] PCP - General Family Medicine 03/31/21 11/12/21 Sergey Oh MD [address] [place] [address] PCP - General 11/13/21 Jean Mak MD 800 [facility] [address] [address] Surgeon Otolaryngology 11/21/21 Alice Chou RN None None Registered Nurse 02/14/25 documented as of this encounter
--- OUTSIDE RECORDS SUMMARY | 2025-03-22 09:59 | XMS_ITS | Encounter Summary ---
Author Organization Healthcare Address [address] [place] [address] Care Team Providers Care Maintenance Fitter Name Role Phone Pcp, No Primary Care Provider Unavailabl Sergey Oreilly MD Primary Care Provider Jean Mak MD Unavailable [phone] Alice Chou RN Unavailable Unavailable Encounter Details Date Type Department Care Team (Late Contact Info) Description 07/05/2020 Orders Only External Location [address] [place] [phone] Provider, External Social History Tobacco Use Types [...] EST Appointment [facility] [address] [place] [address] 2025 9:00 AM EST Appointment [facility] 2 [address] [place] [address] 04/14/2025 7:45 AM EST Clinical Support [facility] [address] [place] [address] 04/14/2025 8:00 AM EST Office Visit [facility] [address] [place] [phone] Edison Skaggs MD [address] [place] [address] 04/14/2025 9:30 AM EST Appointment [facility] [address] [place] [address] 04/16/2025 10:30 AM EST Appointment [facility] [address] [place] [address] 04/28/2025 8:30 AM EST Appointment [facility] [address] [place] [address] 04/30/2025 10:00 AM EST Appointment [facility] 1 [address] [place] [phone] 06/29/2025 12:30 PM EDT Clinical Support [facility] 800 [facility], [address] [place] [address] 06/29/2025 1:00 PM EDT Office Visit [facility] [address] [address] Danny Coon MD [address] [place] [address] documented as of this encounter Procedures [...] on filedocumented in this encounter Care Teams Maintenance Fitter Relationship Specialty Start Date End Date Pcp, No [address] [place] [address] PCP - General Family Medicine 03/31/21 11/12/21 Sergey Oh MD [address] [place] [address] [id number] PCP - General 11/13/21 Jean Mak MD 800 [facility] [address] [address] Surgeon Otolaryngology 11/21/21 Alice Chou RN None None Registered Nurse 02/14/25 documented as of this encounter
--- OUTSIDE RECORDS SUMMARY | 2025-03-22 09:59 | XMS_ITS | Clinical Summary ---
Author Organization [facility] Address [address] [place] [address] Care Team Providers Care [employer] Professor Name Role Phone Sergey Oh MD Primary Care Provider [phone] Jean Mak MD Unavailable [phone] Alice Chou RN Unavailable Unavailable Allergies No known active allergies Medications albuterol 108 (90 Base) MCG/ACT inhaler Inhale 2 puffs 4 times a day as needed. 4 Active cyclobenzaprin e (Flexeril) 10 MG tablet Take 1 tablet by mouth 3 times a day as needed for muscle spasms. Active tenofovir disoproxil fumarate (Viread) 300 MG tabletIndicati ons:Chronic viral hepatitis B without delta agent and without coma (CMS/HCC) Take 1 tablet (300 mg) by mouth daily. 30 tablet 11 5 06/22/19 26 Active ipratropium-al buterol (Duo-Neb) 0.5-2.5 mg/3 mL nebulizer solution Take 3 mL by nebulization 4 times a day as needed. 5 Active ergocalciferol 1.25 MG (95621 UT) capsule TAKE ONE (1) CAPSULE BY MOUTH ONE (1) TIME PER WEEK. 12 capsule 3 5 Active Additional Information Patient taking differently: 50,000 Units Oral Weekly, Reported on 03/17/2025 levothyroxine (Synthroid, Levoxyl) 125 MCG tablet Take 1 tablet by mouth daily. 90 tablet 1 5 Active Additional Information Patient taking differently: (No dose reported), Oral,(No frequency reported), 125mcg daily except for Friday she takes 1.5 tablets (187.5mcg), Reported on 03/17/2025 tiotropium-olo daterol (Stiolto Respimat) 2.5-2.5 MCG/ACT aerosol solution inhaler Inhale 2 Inhalations daily. Active polyethylene glycol (Miralax) 17 GM/SCOOP powder Take 17 g by mouth 2 times a day. Active naloxone (Narcan) 4 mg/0.1 mL nasal spray 1. Give 1 spray in nostril for no/slow breathing or cannot wake after opioid use 2. Call 911 3. Repeat in other nostril if symptoms continue 1 each 5 Active HYDROcodone-ac etaminophen (Pinetops) 7.5-325 MG tablet Active HYDROcodone-ac etaminophen ([place]) 10-325 MG tablet Take 1 tablet by mouth every 6 hours as needed for severe pain. 15 tablet 5 Active dexamethasone (Decadron) 4 MG tabletIndicati ons:Malignant neoplasm of sigmoid colon (CMS/HCC) Take 2 tablets by mouth daily. Take for two days starting the day after treatment 48 tablet 5 Active prochlorperazi ne (Compazine) 10 MG tabletIndicati ons:Malignant neoplasm of sigmoid colon (CMS/HCC) Take 1 tablet by mouth every 6 hours as needed for nausea or vomiting. 30 tablet 5 5 Active loperamide (Imodium A-D) 2 MG tabletIndicati ons:Malignant neoplasm of sigmoid colon (CMS/HCC) 2 mg by mouth every 2 hours as needed for diarrhea; Not to exceed 16 mg in 24 hours 30 tablet 5 5 Active nutritional drink (Boost) liquid liquid Take 1 Bottle by mouth daily. 7110 mL 2 5 04/16/19 26 Active HYDROcodone-ac etaminophen (Pinet[place]) 7.5-325 MG tablet Take 1 tablet by mouth every 8 hours for 3 days. 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) Discharge Disposition: Home or Self Care 03/19/2025 Travel 03/17/2025 8:51 AM EST - 03/17/2025 11:59 PM EST Hospital Encounter [facility] [address] [place] [address] Malignant neoplasm of sigmoid colon (CMS/HCC) (Primary Dx); 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 Discharge Disposition: Home or Self Care 03/17/2025 7:50 AM EST Office Visit [facility] [address] [place] [phone] Edison Skaggs MD 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) 03/17/2025 7:45 AM EST Clinical Support [facility] [address] [place] [phone] Nannette Medina RN Malignant neoplasm of sigmoid colon (CMS/HCC); Malignant neoplasm of descending colon (CMS/HCC) 03/17/2025 Travel 03/10/2025 11:00 AM EST Office Visit [facility] [address] [place] [phone] Edison Skaggs MD Colorectal cancer (CMS/HCC) (Primary Dx); Malignant neoplasm of sigmoid colon (CMS/HCC) 03/10/2025 10:50 AM EST Clinical Support [facility] [address] [place] [phone] Nannette Medina RN Colorectal cancer (CMS/HCC) 03/10/2025 7:21 AM EST - 03/10/2025 11:59 PM EST Hospital Encounter [facility] Radiology [address] [place] [address] Kassi Villarreal RN History of colon cancer, stage II Discharge Disposition: Home or Self Care 03/10/2025 Travel 03/09/2025 6:11 AM EST - 03/09/2025 11:59 PM EST Hospital Encounter [facility] Interventional Radiology [address] [place] [phone] Dallin Garrett RN Localized enlarged lymph nodes Discharge Disposition: Home or Self Care 03/09/2025 Travel 02/21/2025 1:00 PM EST Office Visit [facility] Interventional Radiology [address] [place] [address] Manuela Pedersen APRN, CHARLI Localized enlarged lymph nodes (Primary Dx) 02/21/2025 Telephone [facility] Radiology [address] [place] [phone] Dorota Coleman RN 02/21/2025 Travel 02/17/2025 10:00 AM EST Office Visit [facility] Interventional Pain Medicine [address] [place] [phone] Abdiel Ortez MD 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); Myalgia, other site; Thoracic spine pain 02/17/2025 8:00 AM EST Office Visit [facility] Multidisciplinary Oncology Clinic [address] [place] [phone] Edison Skaggs MD Colorectal cancer (CMS/HCC) (Primary Dx); Overlapping malignant neoplasm of colon (CMS/HCC) 02/17/2025 Travel 02/15/2025 Patient Outreach [address] [place], [address] [place] [address] Alice Chou RN [facility] 02/14/2025 Referral Triage [address] [place], [address] [place] [address] Alice Chou RN 02/14/2025 Patient Outreach [address] [place], [address] [place] [address] Lori Wagner Christo 02/13/2025 Travel 02/13/2025 Orders Only [facility] Interventional Radiology [address] [place] [address] Manuela Pedersen, [employer], DNP Localized enlarged lymph nodes (Primary Dx) 02/12/2025 5:47 PM EST - 02/14/2025 2:25 PM EST Hospital Encounter [facility] Inpatient [address] [place] [address] Jamir Chiu MD Labrada, Diana V, MD Al Nimri, Fadi W, MD Ramani, Ashok A, MD Lymph node enlargement (Primary Dx); Hypotension, unspecified hypotension type; Generalized abdominal pain; Nausea and vomiting, unspecified vomiting type Discharge Disposition: Home or Self Care 02/12/2025 Travel 02/12/2025 Orders Only External Location [address] [place] [address] Provider, External 01/31/2025 2:30 PM EST - 01/31/2025 11:59 PM EST Hospital Encounter [facility] Nuclear Medicine [address] [place] [phone] Discharge Disposition: Home or Self Care 01/31/2025 12:15 PM EST - 01/31/2025 12:31 PM EST Hospital Encounter [facility] Nuclear Medicine [address] [place] [address] Abdiel Haji RN Elevated alkaline phosphatase level; Malignant neoplasm of sigmoid colon (CMS/HCC); 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 Discharge Disposition: Home or Self Care 01/31/2025 Results Follow-Up [facility] Endocrinology [address] [place] [phone] Danny Coon MD 01/31/2025 Travel 01/19/2025 Orders Only [facility] Hematology/BMT and Cellular Therapy Program [address] [facility] [address] [place] [address] Edison Skaggs MD Malignant neoplasm of ascending colon (CMS/HCC) (Primary Dx) 01/11/2025 2:33 PM EDT - 01/11/2025 11:59 PM EDT Hospital Encounter [facility] [address] [place] [address] History of colon cancer, stage II Discharge Disposition: Home or Self Care 01/11/2025 Travel 01/03/2025 Telephone [facility] [address] [place] [phone] Edison Skaggs MD 12/29/2024 1:30 PM EDT Office Visit [facility] [address] [place] [phone] Danny Coon MD 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 (Primary Dx); Multiple lung nodules on CT; Post-surgical hypothyroidism; Vitamin D deficiency; Elevated alkaline phosphatase level 12/29/2024 Travel 12/23/2024 11:00 AM EDT Clinical Support [facility] [address] [place] [phone] History of colon cancer, stage II 12/23/2024 11:00 AM EDT Office Visit [facility] [address] [place] [phone] Edison Skaggs MD History of colon cancer, stage II (Primary Dx) 12/23/2024 Travel from Last 3 Months Immunizations Immunization [...] drink first t mono in the morning ([employer]) to steady your nerves or to get [...] Mass Index 25.89 03/19/2025 10:31 AM EST Plan of Treatment Upcoming Encounters Date Type Department Care Team ([facility] st Contact Info) Description 03/30/2025 8:30 AM EST Appointment [facility] [address] [place] [address] 2025 9:00 AM EST Appointment [facility] [address] [place] [address] 04/14/2025 7:45 AM EST Clinical Support [facility] Multidisciplinary Oncology Clinic [address] [place] [address] 04/14/2025 8:00 AM EST Office Visit [facility] Multidisciplinary Oncology Clinic [address] [place] [address] Edison Skaggs MD [address] [place] [address] 04/14/2025 9:30 AM EST Appointment [facility] [address] [place] [address] 04/16/2025 10:30 AM EST Appointment [facility] [address] [place] [address] 04/28/2025 8:30 AM EST Appointment [facility] [address] [place] [address] 04/30/2025 10:00 AM EST Appointment [facility] 1 [address] [place] [address] 06/29/2025 12:30 PM EDT Clinical Support [facility] [address] [phone] 06/29/2025 1:00 PM EDT Office Visit [facility] [address] [phone] [place] [address] [place] [phone] Health Maintenance Due Date Last Done Comments [facility]-/Child/Adol SDOH Screenings 1978 [facility]- SDOH Screenings 1996 [facility]-Adult SDOH Screenings 1996 [facility]-Hepatitis B Vaccines (1 of 3 - 19+ 3-dose series) 1997 09/29/2024, 06/21/2024, 06/21/2024, Additional history exists [facility]-Zoster Vaccines (1 of 2) 1997 [facility]-Pap Smear 1999 [facility]-Cervical Cancer Screening 2008 [facility]-HPV/Cotest 2008 [id number] Vaccine (2 - Moderna risk series) 12/14/2021 11/16/2021 CT Colonography 2023 Colonoscopy 2023 FIT-DNA 2023 FIT 2023 FOBT 2023 Sigmoidoscopy 2023 [facility]-Colorectal Cancer Screening 2023 [facility]-Hepatitis A Vaccines (2 of 2 - Risk 2-dose series) 11/19/2023 05/21/2023 [facility]-DTaP,Tdap,and Td Vaccines (3 - Td or Tdap) 06/28/2025 06/29/2015, 02/23/2014 [facility]-Depression Screening 03/10/2026 , 06/21/2024, 01/08/2022 [facility]-Pneumococcal Vaccine: Pediatrics (0 to 5 Years) and At-Risk Patients (6 to 49 Years) Completed 11/16/2021 [facility]-HIV Screening Completed 02/12/2025 [facility]-Hepatitis C Screening Completed 02/12/2025, 07/2021 [facility]-Obesity Intervention Completed 025, 02/21/2025, 02/17/2025, Additional history exists [facility]-Influenza Vaccine Completed 03/11/2025 , 02/20/2024, 11/16/2021, Additional history exists HPV Vaccines (No Doses Required) Completed [facility]-HIB Vaccines Aged Out No longer e ligible based on patient's age to complete this topic [facility]-IPV Vaccines Aged Out No longer e ligible based on patient's age to complete this topic [facility]-Rotavirus Vaccines Aged Out No lo nger eligible based on patient's age to complete this topic Medical Devices Implanted Type Area Income Auditor Device Identifier Shelf Expiration Date Model / Serial / Lot Port Evanue Power 8fr - [id number] Implanted:Qt y: 1 on 01/22/2024 by Clay in, Whitney Smith MD at [facility] Catheter Right: Subclavian Bard Per[employer] [id number] MEDIPORT 05/28/2025 [id number] / / [id number] Procedures Procedure Name Priority Date/Time Associated Diagnosis Comments CEA, SERUM Routine 03/17/2025 7:59 AM EST Malignant neoplasm of descending colon (CMS/HCC) URINALYSIS, DIPSTICK Routine 03/17/2025 7:59 AM EST Malignant neoplasm of sigmoid colon (CMS/HCC) COMPREHENSIVE METABOLIC PANEL, PLASMA Routine 03/17/2025 7:59 AM EST Malignant neoplasm of sigmoid colon (CMS/HCC) CBC WITH AUTO DIFFERENTIAL Routine 03/17/2025 7:59 AM EST Malignant neoplasm of sigmoid colon (CMS/HCC) URINALYSIS WITH REFLEX MICROSCOPIC Routine 03/10/2025 12:10 PM EST Colorectal cancer (CMS/HCC) COMPREHENSIVE METABOLIC PANEL, PLASMA Routine 03/10/2025 12:10 PM EST Colorectal cancer (CMS/HCC) CBC WITH AUTO DIFFERENTIAL Routine 03/10/2025 12:10 PM EST Colorectal cancer (CMS/HCC) CT CHEST W IV CONTRAST Routine 8:19 AM EST History of colon cancer, stage II CT ABDOMEN PELVIS W IV CONTRAST Routine 03/10/2025 8:19 AM EST History of colon cancer, stage II CT GUIDED BIOPSY RETROPERITONEAL Routine 03/09/2025 8:43 AM EST Localized enlarged lymph nodes FINE NEEDLE ASPIRATION - CORE BIOPSY Routine 03/09/2025 8:30 AM EST POCT , URINE Routine 03/09/2025 6:24 AM EST SIGNATERA (NAY COLLECTION) Routine 02/28/2025 4:19 PM EST Colorectal cancer (CMS/HCC) PROTHROMBIN TIME(PT) / INR Routine 02/21/2025 1:32 PM EST Localized enlarged lymph nodes CARIS AZ TUMOR SEEK HYBRID + IHCS AND OTHER TESTS BY TUMOR TYPE Routine 02/17/2025 11:16 AM EST Colorectal cancer (CMS/HCC) THYROGLOBULIN (INHOUSE- REFLEX ONLY) Routine 02/17/2025 8:54 AM EST Colorectal cancer (CMS/HCC) THYROGLOBULIN ANTIBODY AND THYROGLOBULIN (MARIA TERESA OR LC-MSMS) Routine 02/17/2025 8:54 AM EST Colorectal cancer (CMS/HCC) CEA, SERUM Routine 02/17/2025 8:54 AM EST Colorectal cancer (CMS/HCC) C-REACTIVE PROTEIN, PLASMA STAT 02/14/2025 7:18 AM EST SEDIMENTATION RATE, AUTOMATED STAT 02/14/2025 7:18 AM EST PROCALCITONIN, PLASMA STAT 02/14/2025 7:18 AM EST CBC WITH AUTO DIFFERENTIAL STAT 02/14/2025 7:18 AM EST PHOSPHORUS, PLASMA STAT 02/14/2025 7: 18 AM EST MAGNESIUM, PLASMA STAT 02/14/2025 7:1 8 AM EST BASIC METABOLIC PANEL, PLASMA STAT 02/14/2025 7:[address] ABDOMEN PELVIS WO IV CONTRAST Routine 02/13/2025 12:16 PM EST EXTRA TUBE GOLD TOP Routine 02/13/2025 6 :28 AM EST EXTRA TUBES Routine 02/13/2025 6:28 AM EST CEA, SERUM Routine 02/13/2025 6:28 AM EST VITAMIN B12, SERUM Routine 02/13/2025 6: 28 AM EST IRON & TOTAL IRON BINDING CAPACITY, PLASMA (INCLUDES TRANSFERRIN) Routine 02/13/2025 6:28 AM EST FERRITIN, SERUM Routine 02/13/2025 6:28 AM EST PHOSPHORUS, PLASMA Routine 02/13/2025 6: 28 AM EST MAGNESIUM, PLASMA Routine 02/13/2025 6:2 8 AM EST COMPREHENSIVE METABOLIC PANEL, PLASMA Routine 02/13/2025 6:28 AM EST CBC WITH AUTO DIFFERENTIAL Routine 02/13/2025 6:28 AM EST ECG ADULT Routine 02/13/2025 1:40 AM EST BLOOD CULTURE (AEROBIC/ANAEROBIC SET) STAT 02/12/2025 9:07 PM EST URINE JIN PANEL STAT 02/12/2025 8:27 PM EST URINALYSIS WITH REFLEX MICROSCOPIC STAT 02/12/2025 8:27 PM EST URINALYSIS WITH REFLEX MICROSCOPIC AND CULTURE STAT 02/12/2025 8:27 PM EST PROCALCITONIN, PLASMA Add-On 02/12/2025 7:30 PM EST C-REACTIVE PROTEIN, PLASMA Add-On 02/12/2025 7:30 PM EST ED HIV 1/2 ANTIBODY/ANTIGEN SCREEN WITH REFLEX TO HIV I/II DIFFERENTIATION STAT 02/12/2025 7:30 PM EST ED PROTOCOL HIV 1/2 ANTIBODY/ANTIGEN SCREEN W/REFLEX TO HIV 1/2 ANTIBODY DIFFERENTIATION STAT 02/12/2025 7:30 PM EST HEPATITIS C ANTIBODY - ED W/REFLEX TO HCV QUANT PCR STAT 02/12/2025 7:30 PM EST LIPASE, PLASMA STAT 02/12/2025 7:30 PM EST LACTATE, VENOUS STAT 02/12/2025 7:30 PM EST MAGNESIUM, PLASMA STAT 02/12/2025 7:3 0 PM EST COMPREHENSIVE METABOLIC PANEL, PLASMA STAT 02/12/2025 7:30 PM EST CBC WITH AUTO DIFFERENTIAL STAT 02/12/2025 7:[address] OUTSIDE IMAGES 02/12/2025 12: 08 AM EST NM BONE SCAN WHOLE BODY Routine 01/31/2025 3:25 PM EST Elevated alkaline phosphatase level 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 CT CHEST W IV CONTRAST Routine 3:08 PM EDT History of colon cancer, [...] EDT History of colon cancer, stage II from Last 3 Months Results * Urinalysis, manual only (03/17/2025 7:59 AM EST) Color, Urine Yellow LAB URINALYSIS - AUTOMATED METHOD 03/17/2025 8:48 AM [facility] Clarity, Urine Clear LAB URINALYSIS - AUTOMATED METHOD 03/17/2025 8:48 AM [facility] Spec [place], Urine 1.014 1.005 - 1.030 LAB URINALYSIS - AUTOMATED METHOD 03/17/2025 8:48 AM [facility] pH, Urine 6.5 5.0 - 8.0 LAB URINALYSIS - AUTOMATED METHOD 03/17/2025 8:48 AM [facility] Protein, Urine Negative Negative mg/dL LAB URINALYSIS - AUTOMATED METHOD 03/17/2025 8:48 AM [facility] Glucose, Urine Negative Negative mg/dL LAB URINALYSIS - AUTOMATED METHOD 03/17/2025 8:48 AM [facility] Ketones, Urine Negative Negative mg/dL LAB URINALYSIS - AUTOMATED METHOD 03/17/2025 8:48 AM [facility] Blood, Urine Negative Negative LAB URINALYSIS - AUTOMATED METHOD 03/17/2025 8:48 AM [facility] Bilirubin, Urine Negative Negative LAB URINALYSIS - AUTOMATED METHOD 03/17/2025 8:48 AM [facility] Urobilinogen, Urine 0.2 0.2 to 1.0 mg/dL LAB URINALYSIS - AUTOMATED METHOD 03/17/2025 8:48 AM [facility] Leukocytes, Urine Negative Negative LAB URINALYSIS - AUTOMATED METHOD 03/17/2025 8:48 AM [facility] Nitrite, Urine Negative Negative LAB URINALYSIS - AUTOMATED METHOD 03/17/2025 8:48 AM [facility] Urine Urine specimen obtained by clean catch procedure / Unknown Non-blood Collection / Unknown 03/17/2025 7:59 AM EST 03/17/2025 8:39 AM EST us Franchesca Delacruz MD LAB URINE ORDERABLES Final Resu lt [facility] [address] [place] [address] * (ABNORMAL) CBC and differential (03/17/2025 7:59 AM EST) Only the most recent of5 resultswithin the time period is included. WBC Count 8.79 3.70 - 10.30 10*3/uL LAB HEMATOLOGY METHOD 03/17/2025 8:39 AM EST [facility] RBC Count 4.47 3.90 - 5.20 10*6/uL LAB HEMATOLOGY METHOD 03/17/2025 8:39 AM EST [facility] HGB 12.5 11.2 - 15.7 g/dL LAB HEMATOLOGY METHOD 03/17/2025 8:39 AM EST [facility] HCT 38.5 34.0 - 45.0 % LAB HEMATOLOGY METHOD 03/17/2025 8:39 AM EST [facility] Platelet Count 348 155 - 369 10*3/uL LAB HEMATOLOGY METHOD 03/17/2025 8:39 AM EST [facility] MCV 86 79 - 98 fL LAB HEMATOLOGY METHOD 03/17/2025 8:39 AM EST [facility] MCH 28.0 26.0 - 32.0 pg LAB HEMATOLOGY METHOD 03/17/2025 8:39 AM EST [facility] MCHC 32.5 30.7 - 35.5 g/dL LAB HEMATOLOGY METHOD 03/17/2025 8:39 AM EST [facility] RDW 15.4(H) 11.5 - 14.5 % LAB HEMATOLOGY METHOD 03/17/2025 8:39 AM EST [facility] MPV 9.0 8.8 - 12.5 fL LAB HEMATOLOGY METHOD 03/17/2025 8:39 AM EST [facility] nRBC 0.0 <=0.0 per 100 WBCs LAB HEMATOLOGY METHOD 03/17/2025 8:39 AM EST [facility] Differential Type Automated LAB HEMATOLOGY METHOD 03/17/2025 8:39 AM EST [facility] Neutrophils % 61 % LAB HEMATOLOGY METHOD 03/17/2025 8:39 AM EST [facility] Lymphocytes % 28 % LAB HEMATOLOGY METHOD 03/17/2025 8:39 AM EST [facility] Monocytes % 7 % LAB HEMATOLOGY METHOD 03/17/2025 8:39 AM EST [facility] Eosinophils % 3 % LAB HEMATOLOGY METHOD 03/17/2025 8:39 AM EST [facility] Basophils % 1 % LAB HEMATOLOGY METHOD 03/17/2025 8:39 AM EST [facility] Immature Granulocytes % 0 % LAB HEMATOLOGY METHOD 03/17/2025 8:39 AM EST [facility] Neutrophils Absolute 5.31 1.60 - 6.10 10*3/uL LAB HEMATOLOGY METHOD 03/17/2025 8:39 AM [facility] Lymphocytes Absolute 2.50 1.20 - 3.90 10*3/uL LAB HEMATOLOGY METHOD 03/17/2025 8:39 AM EST [facility] Monocytes Absolute 0.63 0.30 - 0.90 10*3/uL LAB HEMATOLOGY METHOD 03/17/2025 8:39 AM EST [facility] Eosinophils Absolute 0.29 0.00 - 0.50 10*3/uL LAB HEMATOLOGY METHOD 03/17/2025 8:39 AM EST [facility] Basophils Absolute 0.04 0.00 - 0.10 10*3/uL LAB HEMATOLOGY METHOD 03/17/2025 8:39 AM EST [facility] Immature Granulocytes Absolute 0.02 0.00 [...] MD LAB BLOOD ORDERABLES Final Resu lt [facility] [address] [place] [address] * (ABNORMAL) CEA (03/17/2025 7:59 AM EST) Only the most recent of4 resultswithin the time period is included. CEA, Serum 21.8(H) <4.0 ng/mL 03/17/2025 9:13 AM EST [facility] Blood Venous blood specimen / Unknown Venipuncture / Unknown 03/17/2025 7:59 AM EST 03/17/2025 8:38 AM EST Narrative [facility] - 03/17/2025 9:13 AM EST Normal range for smokers: < 5.5 ng/ml Normal range for non-smokers: <=4.0 ng/ml Performed by [employer] electrochemiluminescent immunoassay. Results obtained with different test methods or kits cannot be used interchangeably. us Caroline Means MD LAB BLOOD ORDERABLES Final Resul t [facility] [address] [place] [address] * (ABNORMAL) Comprehensive metabolic panel (03/17/2025 7:59 AM EST) Only the most recent of4 resultswithin the time period is included. Glucose, Plasma 81 74 - 99 mg/dL 03/17/2025 9:07 AM EST [facility] BUN, Plasma 10 7 - 21 mg/dL 03/17/2025 9:07 AM EST [facility] Creatinine, Plasma 0.79 0.60 - 1.10 mg/dL 03/17/2025 9:07 AM EST [facility] BUN/Creatinine Ratio 13 03/17/2025 9:07 AM EST [facility] Sodium, Plasma 142 136 - 145 mmol/L 03/17/2025 9:07 AM EST [facility] Potassium, Plasma 3.6 3.6 - 4.9 mmol/L 03/17/2025 9:07 AM EST [facility] Chloride, Plasma 102 97 - 107 mmol/L 03/17/2025 9:07 AM EST [facility] CO2, Plasma 29 22 - 29 mmol/L 03/17/2025 9:07 AM EST [facility] Anion Gap 11 6 - 16 mmol/L 03/17/2025 9:07 AM EST [facility] Total Calcium, Plasma 9.4 8.9 - 10.2 mg/dL 03/17/2025 9:07 AM EST [facility] Total Protein 7.7 6.3 - 7.9 g/dL 03/17/2025 9:07 AM EST [facility] Albumin, Plasma 4.1 3.5 - 5.2 g/dL 03/17/2025 9:07 AM EST [facility] AST, Plasma 25 10 - 35 U/L 03/17/2025 9:07 AM EST [facility] ALT, Plasma 16 10 - 35 U/L 03/17/2025 9:07 AM EST [facility] Alkaline Phosphatase, Plasma 132(H) 35 - 104 U/L 03/17/2025 9:07 AM EST [facility] Total Bilirubin, Plasma 0.2 0.2 - 1.1 mg/dL 03/17/2025 9:07 AM EST [facility] eGFRcr 93.6 mL/min/1.7 3m*2 03/17/2025 9:07 AM EST [facility] Comment:Reported eGFRcr in m L/min/1.73m2 is based the CKD-EPI 2020 equation that does not use a race coefficient. Blood Venous blood specimen / Unknown Venipuncture / Unknown 03/17/2025 7:59 AM EST 03/17/2025 8:38 AM EST us Franchesca Delacruz MD LAB BLOOD ORDERABLES Final Resu lt [facility] [address] [place] [address] * (ABNORMAL) Urinalysis with reflex microscopic (Culture NOT Included) (03/10/2025 12:10 PM EST) Only the most recent of2 resultswithin the time period is included. Color, Urine Yellow LAB URINALYSIS - AUTOMATED METHOD 03/10/2025 12:50 PM EST [facility] Clarity, Urine Clear LAB URINALYSIS - AUTOMATED METHOD 03/10/2025 12:50 PM EST [facility] Spec [place], Urine >1.030(H) 1.005 - 1.030 LAB URINALYSIS - AUTOMATED METHOD 03/10/2025 12:50 PM EST [facility] pH, Urine 7.0 5.0 - 8.0 LAB URINALYSIS - AUTOMATED METHOD 03/10/2025 12:50 PM EST [facility] Protein, Urine Negative Negative mg/dL LAB URINALYSIS - AUTOMATED METHOD 03/10/2025 12:50 PM EST [facility] Glucose, Urine Negative Negative mg/dL LAB URINALYSIS - AUTOMATED METHOD 03/10/2025 12:50 PM EST [facility] Ketones, Urine Negative Negative mg/dL LAB URINALYSIS - AUTOMATED METHOD 03/10/2025 12:50 PM EST [facility] Blood, Urine Negative Negative LAB URINALYSIS - AUTOMATED METHOD 03/10/2025 12:50 PM EST [facility] Bilirubin, Urine Negative Negative LAB URINALYSIS - AUTOMATED METHOD 03/10/2025 12:50 PM EST [facility] Urobilinogen, Urine 0.2 0.2 to 1.0 mg/dL LAB URINALYSIS - AUTOMATED METHOD 03/10/2025 12:50 PM EST [facility] Leukocytes, Urine Negative Negative LAB URINALYSIS - AUTOMATED METHOD 03/10/2025 12:50 PM EST [facility] Nitrite, Urine Negative Negative LAB URINALYSIS - AUTOMATED METHOD 03/10/2025 12:50 PM EST [facility] Urine Urine specimen obtained by clean catch procedure / Unknown Non-blood Collection / Unknown 03/10/2025 12:10 PM EST 03/10/2025 12:41 PM EST us Caroline Means MD LAB URINE ORDERABLES Final Resul t [facility] [address] [place] [address] * CT Abdomen Pelvis w IV Contrast (03/10/2025 8:19 AM EST) Only the most recent of2 resultswithin the time period is included. Anatomical Region Laterality Modality Abdomen, Pelvis Computed [...] Total DLP (Dose-Length Product): 349.21 mGy.cm (accession [id number]), 349.21 mGy.cm (accession [id number]). Please note: The reported value represents the [...] Total DLP (Dose-Length Product): 349.21 mGy.cm (accession [id number]),349.21 mGy.cm (accession [id number]). Please note: The reported valuerepresents the total [...] Porter Ha MD on 03/10/2025 11:04 AM us Franchesca Delacruz MD IMG CT PROCEDURES Final Result * CT Chest w IV Contrast (03/10/2025 8:19 AM EST) Only the most recent of2 resultswithin the time period is included. Anatomical Region Laterality Modality Chest Computed Tomogra [...] Total DLP (Dose-Length Product): 349.21 mGy.cm (accession [id number]), 349.21 mGy.cm (accession [id number]). Please note: The reported value represents the [...] Total DLP (Dose-Length Product): 349.21 mGy.cm (accession [id number]),349.21 mGy.cm (accession [id number]). Please note: The reported valuerepresents the total [...] Porter Ha MD on 03/10/2025 11:04 AM us Franchesca Delacruz MD IMG CT PROCEDURES Final Result * CT Guided Biopsy Retroperitoneal (03/09/2025 8:43 [...] image guided periaortic lymph node biopsy. TECHNIQUE: Research Worker Encyclopedia: Elmira Lainez M.D. Secondary Automobile Sales Consultant: Chapincito Goyal MS Nurse: Valentino Padilla Technologist: [...] for image guidedperiaortic lymph node biopsy. TECHNIQUE: Research Worker Encyclopedia: Elmira Lainez M.D. Secondary Automobile Sales Consultant: Chapincito Goyal MS Nurse: Valentino Padilla Technologist: [...] Elmira Lainez MD on 03/09/2025 9:42 AM us Manuela Pedersen LAND APPRAISER, DNP IMG CT PROCEDURES Yoanna sagastume Result * Fine needle aspiration - Core Biopsy (03/09/2025 8:30 AM EST) Case Report Cytology Case: [id number] Authorizing Provider: Eloy Estrada MD Collected: 03/09/2025 0830 Ordering Location: [facility] A Interventional Received: 03/09/2025 0922 Radiology Pathologist: Gita Vale MD Specimen: Retroperitoneal Mass, Core Biopsy with Touch Preparation, RETROPERITONEAL MASS, CT GUIDED CORE BIOPSY WITH TOUCH PREPS 5 5:33 PM EST [facility] Final Diagnosis A. RETROPERITONEAL MASS, CT GUIDED CORE BIOPSY: - POSITIVE FOR MALIGNANCY, METASTATIC CARCINOMA CONSISTENT WITH COLON PRIMARY. 5 5:33 PM EST [facility] at 1733 EST Special and Immunohistochemical Stains IHC: A1-1 CK7 Negative A1-2 CK20 Patchy positive A1-3 SATB2 Positive All controls show appropriate reactivity. All immunohistochemis try, in situ hybridization, and histochemical tests were developed by and are performed at the [facility], [address] [place] [address]. All tests reported here, except those addressing [...] negativity on decalcified specimens. 5 5:33 PM [facility] Immediate Evaluation Core biopsy performed by: [...] appears on the report. 5 5:33 PM [facility] Clinical History colon cancer 5 5:33 PM [facility] Procedure Type CT 5 5:33 PM [facility] Size/Description of Lesion Retroperitoneal mass 5 5:33 PM [facility] Cancer History Yes 5 5:33 PM [facility] Comment:colon cancer Gross Description A. RETROPERITONEAL [...] hours of formalin fixation. Cold Time: 26m 5 5:33 PM [facility] Note: A resident was involved in the service. I attest I examined the relevant preparations for the specimens and confirmed the diagnosis or interpretation. 5 5:33 PM [facility] Clinical Information No Dx found. 5 5:33 PM [facility] Fine Needle Aspirate Retroperitoneal mass / Unknown Non-blood Collection / Unknown 03/09/2025 8:30 AM EST 03/09/2025 9:22 AM EST us Eloy Estrada MD LAB CYTOLOGY ORDERABLES Final Result Performing Organization Address City/[facility]/ZIP Co de Phone Number [facility] [address] [place] [address] * POCT , URINE (03/09/2025 6:24 AM EST) [facility] POCT Test, Urine Negative Males and Non- Females: Negative 03/09/2025 6:31 AM EST [facility] Automobile Sales Consultant ID Theresa Pastor 03/09/2025 6:31 AM EST [facility]ARE LAB Device ID [id number] 03/09/2025 6:31 AM EST [facility] Urine Urine specimen obtained by clean catch procedure / Unknown 03/09/2025 6:24 AM EST 03/09/2025 6:31 AM EST us Dallin Garrett RN LAB POINT OF CARE TE ST DOCKED DEVICE UNSOLICITED RESULTS Final Result Performing Organization Address City/[facility] Co de Phone Number [facility] [address] [place] [address] * (ABNORMAL) Signatera Only Nay Managed Subsequent Draws (02/28/2025 4:19 PM EST) [facility] SIGNATERA TEST RESULT POSITIVE (A) 02/28/2025 4:19 [...] limited ctDNA shed. 1 Cy SV, Easton RAEC, Karthik SHON, et al. Personalized circulating tumor DNA analysis as a predictive biomarker in solid tumor patients treated with pembrolizumab. Nature Cancer. 2020;1(9):873-881. 2 Deidra BARRIOS, Jessica Mccullough, et al., Circulating Tumor DNA in Stage III Colorectal Cancer, beyond Minimal Residual Disease Detection, toward Assessment of Adjuvant Therapy Efficacy and Clinical Behavior of Recurrences. Clin Cancer Res. 202; 28(3):507-517. Methodology FFPE samples are reviewed by a pathologist to assess tumor content and percent tumor nuclei. Tumor DNA is extracted using [employer] Bio-dominga Mag-Bind FFPE DNA/RNA kit. Whole genomic DNA is isolated from peripheral blood using QIAamp DNA Blood MiniKit to provide DNA for germline sequencing. Circulating tumor DNA (ctDNA) is extracted from plasma derived from whole blood samples collected in cell-free DNA blood tubes (PostalGuard) using the QIAsymphony automated or manual extraction method (Qiagen). Whole-exome sequencing is performed on tumor and peripheral blood DNA using the Chromasun whole-exome sequencing assay. Using a proprietary algorithm, [...] and whole exome sequencing is performed at [facility]. (CLIA ID# [id number]), [address] [place] [address]. Disclaimer The extraction, library preparation, and sequencing for this test were performed by [facility] [address] [place] [address] (CLIA ID [id number]). The data analysis and reporting for this test were performed by [facility] [address] [place] [address] Rd[address] [place] [address] (CLIA ID [id number]). This test was developed and its performance characteristics determined by [facility]. The test has not been cleared or approved by the U.S. Food and Drug Administration (FDA). CAP accredited, ISO 47671 certified, and CLIA certified. Pathology services and whole exome sequencing for this test were performed by [facility] [address] [place] [address] Rd. [address] [place] [address] (CLIA ID [id number]). 2020 [employer]. All Rights Reserved. Blood specimen (specimen) Venous blood specimen / Unknown 02/19/2025 3:00 AM EST Broderick Taylor MD [facility] BLOOD ORDERABLES Yoanna sagastume Result [facility] [address] [place] [address], [facility] [address] [place] [address] * Prothrombin Time/INR (02/21/2025 1:32 PM EST) Prothrombin Time 13.7 12.0 - 14.3 sec LAB COAGULATION METHOD 02/21/2025 3:06 PM EST [facility] INR 1.0 0.9 - 1.1 LAB COAGULATION METHOD 02/21/2025 3:06 PM EST [facility] Blood Venous blood specimen / Unknown Venipuncture / Unknown 02/21/2025 1:32 PM EST 02/21/2025 1:33 PM EST Narrative [facility] - 02/21/2025 3:06 PM EST [...] of recurrent [place] INR 2.5 to 3.5 Manuela Pedersen LAND APPRAISER, DNP LAB BLOOD ORDERABLES F inal Result [facility] [address] [place] [address] * (ABNORMAL) [facility] [place] Cancer Seek Hybrid??? + IHCs and Other Tests by Tumor Type (02/17/2025 11:16 AMEST) [facility] PD-L1 (22C3) Negative 2024 8:42 PM EST [facility] Mismatch Repair Status Proficient (Intact) 02/27/2025 8:42 PM EST [facility] [employer] [facility] Genomic Loss of Heterozygosity - Exome Low 10% 02/27/2025 8:42 PM EST [facility] [employer] [facility] Microsatellite Instability - Exome Stable 02/27/2025 8:42 PM EST [facility] [employer] [facility] Tumor Mutational [place] - Exome Low 3 per Mb 02/27/2025 8:42 PM EST [facility] [employer] [facility] Her2/Karl Negative 02/27/2025 8:42 PM EST [facility] MLH1 Intact nuclear expression 02/27/2025 8:42 PM EST [facility] [employer] [facility] MSH2 Intact nuclear expression 02/27/2025 8:42 PM EST [facility] MSH6 Intact nuclear expression 02/27/2025 8:42 PM EST [facility] PMS2 Intact nuclear expression 02/27/2025 8:42 PM EST [facility] HLA-A - Exome A*03:01,A*25: 01 02/27/2025 8:42 PM EST [facility] HLA-B - Exome B*07:02,B*18: 01 02/27/2025 8:42 PM EST [facility] HLA-C - Exome C*12:03,C*07: 02 02/27/2025 8:42 PM EST [facility] Tissue Non-blood Collection / Unknown 02/17/2025 11:16 AM EST 02/17/2025 11:17 AM EST Narrative This result has genomic variants that were not included in this document. Franchesca Delacruz MD LAB MOL DX NO SOURCE Final Resu lt [facility] [address] [place] [address], * Thyroglobulin Antibody and Thyroglobulin (MARIA TERESA or LC-MSMS) (02/17/2025 8:54 AM EST) Thyroglobulin Antibody <1.0 <4.0 IU/mL 02/17/2025 10:44 AM EST [facility] Blood Venous blood specimen / Unknown Venipuncture / Unknown 02/17/2025 8:54 AM EST 02/17/2025 9:19 AM EST Broderick Taylor MD LAB BLOOD ORDERABLES Final R esult [facility] [address] [place] [address] * Thyroglobulin (02/17/2025 8:54 AM EST) Thyroglobulin (Inhouse) 0.1 <=31.8 ng/mL 02/17/2025 11:25 AM EST [facility] Blood Venous blood specimen / Unknown Venipuncture / Unknown 02/17/2025 8:54 AM EST 02/17/2025 9:19 AM EST Narrative [facility] - 02/17/2025 11:25 AM EST Performed by Fransico Rose 2nd generation TG chemiluminescent immunoassay. Results obtained with different test methods or kits cannot be used interchangeably. us Broderick Taylor MD LAB BLOOD ORDERABLES Final R esult Performing Organization Address [facility] Co de Phone Number [facility] [address] [place] [address] * Procalcitonin, Plasma (02/14/2025 7:18 AM EST) Only the most recent of2 resultswithin the time period is included. [facility] Procalcitonin, Plasma 0.08 <0.09 ng/mL 02/14/2025 8:27 AM EST [facility] Blood Venous blood specimen / Unknown Venipuncture / Unknown 02/14/2025 7:18 AM EST 02/14/2025 7:35 AM EST Narrative [facility] - 02/14/2025 8:27 AM [...] predict 28 day mortality risk. Please consult [email or web address] for more information. Test performed at [facility]. us Angelito Martin MD LAB BLOOD ORDERABLES Final Res ult [facility] [address] [place] [address] * (ABNORMAL) Sedimentation Rate, Automated (02/14/2025 7:18 AM EST) Sedimentation Rate 99(H) <20 mm/hr 2024 7:52 AM EST [facility] Blood Venous blood specimen / Unknown Venipuncture / Unknown 02/14/2025 7:18 AM EST 02/14/2025 7:35 AM EST Angelito Martin MD LAB BLOOD ORDERABLES Final Res ult Performing Organization Address City/[facility]/ZIP Co de Phone Number [facility] [address] [place] [address] * (ABNORMAL) C-Reactive Protein, Plasma (02/14/2025 7:18 AM EST) Only the most recent of2 resultswithin the time period is included. CRP, Plasma 109.4(H) <=8.0 mg/L 02/14/2025 8:11 AM EST [facility] Blood Venous blood specimen / Unknown Venipuncture / Unknown 02/14/2025 7:18 AM EST 02/14/2025 7:35 AM EST Narrative [facility] - 02/14/2025 8:11 AM EST This CRP test is appropriate for assessment of infection, systemic inflammation and/or tissue injury. To assess cardiovascular disease risk order high sensitivity CRP (CRPH). us Angelito Martin MD LAB BLOOD ORDERABLES Final Res ult [facility] [address] [place] [address] * Phosphorus, Plasma (02/14/2025 7:18 AM EST) Only the most recent of2 resultswithin the time period is included. Phosphorus, Plasma 4.0 2.5 - 4.5 mg/dL 02/14/2025 8:11 AM EST [facility] Blood Venous blood specimen / Unknown Venipuncture / Unknown 02/14/2025 7:18 AM EST 02/14/2025 7:35 AM EST us Angelito Martin MD LAB BLOOD ORDERABLES Final Res ult Performing Organization Address [facility] Co de Phone Number [facility] [address] [place] [address] * Magnesium, Plasma (02/14/2025 7:18 AM EST) Only the most recent of3 resultswithin the time period is included. Magnesium, Plasma 2.0 1.9 - 2.4 mg/dL 02/14/2025 8:11 AM EST [facility] Blood Venous blood specimen / Unknown Venipuncture / Unknown 02/14/2025 7:18 AM EST 02/14/2025 7:35 AM EST us Angelito Martin MD LAB BLOOD ORDERABLES Final Res ult Performing Organization Address [facility] de Phone Number [facility] [address] [place] [address] * Basic Metabolic Panel, Plasma (02/14/2025 7:18 AM EST) Glucose, Plasma 86 74 - 99 mg/dL 02/14/2025 8:11 AM EST [facility] BUN, Plasma 7 7 - 21 mg/dL 02/14/2025 8:11 AM EST [facility] Creatinine, Plasma 0.76 0.60 - 1.10 mg/dL 02/14/2025 8:11 AM EST [facility] BUN/Creatinine Ratio 9 02/14/2025 8:11 AM EST [facility] Sodium, Plasma 144 136 - 145 mmol/L 02/14/2025 8:11 AM EST [facility] Potassium, Plasma 4.1 3.6 - 4.9 mmol/L 02/14/2025 8:11 AM EST [facility] Chloride, Plasma 106 97 - 107 mmol/L 02/14/2025 8:11 AM EST [facility] CO2, Plasma 27 22 - 29 mmol/L 02/14/2025 8:11 AM EST [facility] Anion Gap 11 6 - 16 mmol/L 02/14/2025 8:11 AM EST [facility] Total Calcium, Plasma 9.3 8.9 - 10.2 mg/dL 02/14/2025 8:11 AM EST [facility] eGFRcr 98.0 mL/min/1.7 3m*2 02/14/2025 8:11 AM EST [facility] Comment:Reported eGFRcr in m L/min/1.73m2 is based the CKD-EPI 2020 equation that does not use a race coefficient. Blood Venous blood specimen / Unknown Venipuncture / Unknown 02/14/2025 7:18 AM EST 02/14/2025 7:35 AM EST us Angelito Martin MD LAB BLOOD ORDERABLES Final Res ult [facility] [address] [place] [address] * CT Abdomen Pelvis wo IV Contrast [...] Jean Kumar MD on 02/13/2025 2:00 PM us Angelito Martin MD IMG CT PROCEDURES Final Result * Gold Top (02/13/2025 6:28 AM EST) Pathologist [facility] Extra Hold for add-ons 02/13/2025 9:02 AM EST [facility] Comment:Auto resulted. Blood Venous blood specimen / Unknown 02/13/2025 6:28 AM EST 02/13/2025 6:37 AM EST us Angelito Martin MD LAB BLOOD ORDERABLES Final Res ult [facility] [address] [place] [address] * (ABNORMAL) Iron & Total Iron Binding Capacity, Plasma (Includes Transferrin) (02/13/2025 6:28 AM EST) Pathologist [facility] Iron, Plasma 22(L) 30 - 160 ug/dL 02/13/2025 7:11 AM EST [facility] Transferrin, Plasma 156(L) 200 - 360 mg/dL 02/13/2025 7:11 AM EST [facility] Total Iron Binding Capacity, Plasma 195(L) 240 - 450 ug/mL 02/13/2025 7:11 AM EST [facility] Transferrin Saturation 11(L) 14 - 50 % 02/13/2025 7:11 AM EST [facility] Blood Venous blood specimen / Unknown Venipuncture / Unknown 02/13/2025 6:28 AM EST 02/13/2025 6:38 AM EST us Mitesh Reynoso MD LAB BLOOD ORDERABLES Final Re sult Performing Organization Address [facility] Co de Phone Number [facility] [address] [place] [address] * (ABNORMAL) Ferritin, Serum (02/13/2025 6:28 AM EST) Ferritin, Serum 196(H) 13 - 150 ng/mL 02/13/2025 7:15 AM EST [facility] Blood Venous blood specimen / Unknown Venipuncture / Unknown 02/13/2025 6:28 AM EST 02/13/2025 6:38 AM EST us Mitesh Reynoso MD LAB BLOOD ORDERABLES Final Re sult Performing Organization Address [facility] de Phone Number [facility] [address] [place] [address] * Vitamin B12 (02/13/2025 6:28 AM EST) Pathologist [facility] Vitamin B12, Serum 445 210 - 1,033 pg/mL 02/13/2025 7:23 AM EST [facility] Blood Venous blood specimen / Unknown Venipuncture / Unknown 02/13/2025 6:28 AM EST 02/13/2025 6:37 AM EST us Mitesh Reynoso MD LAB BLOOD ORDERABLES Final Re sult Performing Organization Address City/[facility] Co de Phone Number [facility] [address] [place] [address] * ECG Adult (02/13/2025 1:40 AM EST) EKG DIAGNOSIS CLASS Abnormal MUSE ECG Ventricular Rate 88 BPM MUSE ECG Atrial Rate 88 BPM MUSE ECG OR Interval 134 ms MUSE ECG QRSD Interval 78 ms MUSE ECG QT Interval 358 ms MUSE ECG QTC Interval 433 ms MUSE ECG P Lacon 86 degrees MUSE ECG R Lacon 34 degrees MUSE ECG T Wave Lacon 69 degrees MUSE ECG Diagnosis Normal sinus rhythm MUSE ECG Diagnosis Low voltage QRS MUSE ECG Diagnosis Septal infarct , age undetermined MUSE ECG Diagnosis Abnormal ECG MUSE ECG Diagnosis MUSE ECG Diagnosis Confirmed by Yehuda Schofield ([id number]) on 02/13/2025 5:51:32 PM MUSE ECG 02/13/2025 1:40 AM EST 02/13/2025 5:51 PM EST us Mitesh Reynoso MD ECG ORDERABLES Final Result MUSE ECG * Blood Culture (Aerobic/Anaerobet Set) (02/12/2025 9:07 PM EST) Culture No growth at day 5 02/17/2025 10:01 PM EST [facility] Blood Venous blood specimen / Unknown Venipuncture / Unknown 02/12/2025 9:07 PM EST 02/12/2025 9:52 PM EST us Jamir Chiu MD LAB MICROBIOLOGY - GENERAL ORD ERABLES Final Result [facility] [address] [place] [address] * Urine Jin Panel (02/12/2025 8:27 PM EST) Extra Reflex urine culture not indicated 02/13/2025 5:02 AM EST [facility] Comment: Previously prelim verified [...] ORDERABLES Final Res ult Performing Organization Address City/[facility]/ZIP Co de Phone Number [facility] [address] [place] [address] * ED HIV 1/2 Antibody/Antigen Screen w/Reflex to HIV 1/2 Differentiation (02/12/2025 7:30 PM EST) HIV 1 & 2 Antibody/Antigen Screen Non Reactive Non Reactive 02/12/2025 8:31 PM EST [facility] Comment:Screening for HIV 1 & 2 antibodies, and P24 antigen is NONREACTIVE. No confirmatory testing is required. Blood Venous blood specimen / Unknown Venipuncture / Unknown 02/12/2025 7:30 PM EST 02/12/2025 7:41 PM EST us Jamir Chiu MD LAB BLOOD ORDERABLES Final Res ult Performing Organization Address [facility] Co de Phone Number [facility] [address] [place] [address] * Lactic acid, venous (02/12/2025 7:30 PM EST) [facility] Lactate, Venous, Whole Blood 0.5 0.5 - 2.2 mmol/L LAB HEMATOLOGY METHOD 02/12/2025 7:42 PM EST [facility] Blood Venous blood specimen / Unknown Venipuncture / Unknown 02/12/2025 7:30 PM EST 02/12/2025 7:40 PM EST us Jamir Chiu MD LAB BLOOD ORDERABLES Final Res ult Performing Organization Address City/[facility]/ZIP Co de Phone Number [facility] [address] [place] [address] * Hepatitis C Antibody - ED (02/12/2025 7:30 PM EST) Pathologist [facility] Hepatitis C Antibody Negative Negative 02/12/2025 8:31 PM EST [facility] Blood Venous blood specimen / Unknown Venipuncture / Unknown 02/12/2025 7:30 PM EST 02/12/2025 7:41 PM EST us Jamir Chiu MD LAB BLOOD ORDERABLES Final Res ult Performing Organization Address [facility] Co de Phone Number [facility] [address] [place] [address] * (ABNORMAL) Lipase (02/12/2025 7:30 PM EST) Lipase, Plasma 14(L) 19 - 63 U/L 02/12/2025 8:05 PM EST [facility] Blood Venous blood specimen / Unknown Venipuncture / Unknown 02/12/2025 7:30 PM EST 02/12/2025 7:41 PM EST Jamir Chiu MD LAB BLOOD ORDERABLES Final Res ult Performing Organization Address [facility] [place] [address] * CT OUTSIDE IMAGES (02/12/2025 12:08 AM EST) Anatomical Region Laterality Modality Computed Tomogra phy 02/12/2025 12:0 8 AM EST us External Provider IMG CT PROCEDURES Edited Resul t - Final * NM Bone Scan Whole Body (01/31/2025 [...] Adán Bowers on 01/31/2025 8:13 PM Danny Jaymie EDG[facility] PROCEDURES Final Result * (ABNORMAL) Alkaline phosphatase, isoenzymes (12/29/2024 1:51 PM EDT) ALKALINE PHOSPHATASE 163(H) 40 - 120 U/L 01/02/2025 1:09 AM EDT [facility] ALKALINE PHOSPHATASE BONE CALC 62(H) 0 - 55 U/L 01/02/2025 1:09 AM EDT [facility] ALKALINE PHOSPHATASE LIVER CALC 101(H) 0 - 94 U/L 01/02/2025 1:09 AM EDT [facility] ALKALINE PHOSPHATASE OTHER CALC 0 U/L 01/02/2025 1:09 AM EDT [facility] Blood Blood sample taken from central line / Unknown (Port) Long-term Catheter / Unknown 12/29/2024 1:51 PM EDT 12/29/2024 5:19 PM EDT Narrative [facility] KRISTIE DICKEY) - 01/02/2025 1:09 AM EDT INTERPRETIVE INFORMATION: Alk-Phosphatase Liver Calc Bone Specific Alkaline Phosphatase (1880939) and 5'-nucleotidase ([id number]) may be useful in identifying disorders of bone and liver, respectively. This test was developed and its performance characteristics determined by [facility]. It has not been cleared or approved by the U.S. Food and Drug Administration. This test was performed in a CLIA-certified laboratory and is intended for clinical purposes. Performed By: [facility] [address] [place] [id number] [employer]: Jose Gan MD, PhD CLIA Number: [id number] us Danny Coon MD LAB BLOOD ORDERABLES Final Resu lt Performing Organization Address City/[facility]/ZIP Co de Phone Number [facility]) [address] [place] [address] * (ABNORMAL) Thyroid Stimulating Hormone, Plasma (12/29/2024 1:51 PM EDT) Thyroid Stimulating Hormone, Plasma 0.01(L) 0.40 - 4.20 uIU/mL 12/29/2024 3:18 PM EDT [facility] Blood Blood sample taken from central line / Unknown (Port) Long-term Catheter / Unknown 12/29/2024 1:51 PM EDT 12/29/2024 2:36 PM EDT Narrative [facility] - 12/29/2024 3:18 PM EDT Trimester Specific Ranges TSH ( IU/mL) 1st Trimester 0.1 - 3.0 2nd Trimester 0.19 - 4.06 3rd Trimester 0.3 - 3.7 us Danny Coon MD LAB BLOOD ORDERABLES Final Resu lt [facility] [address] [place] [address] * Free T4, Plasma (12/29/2024 1:51 PM EDT) Free T4, Plasma 1.5 0.8 - 1.7 ng/dL 12/29/2024 3:18 PM EDT [facility] Blood Blood sample taken from central line / Unknown (Port) Long-term Catheter / Unknown 12/29/2024 1:51 PM EDT 12/29/2024 2:36 PM EDT Narrative [facility] - 12/29/2024 3:18 PM EDT Free T4 Trimester Specific Ranges 1st Trimester 0.9 - 1.50 ng/dL 2nd Trimester 0.7 - 1.40 ng/dL 3rd Trimester 0.7 - 1.24 ng/dL us Danny Coon MD LAB BLOOD ORDERABLES Final Resu lt [facility] [address] [place] [address] from Last 3 Months Insurance [facility] MEDICAID Advance Directives * Full Code (Latest Code Status on File) Date Activated Date Inactivated Comments 02/13/2025 1:27 AM 02/14/2025 4:30 PM Question Answer Comments I have reviewed the capacity from the link above and, if needed, have updated to appropriate status: Yes * Full Code Date Activated Date Inactivated Comments 12/10/2021 3:22 PM 12/11/2021 9:56 PM Question Answer Comments Patient has decision-making capacity? Yes Care Teams Mass Communications Professor Relationship Specialty Start Date End Date Sergey Oh MD PCP - General 11/13/21 Jean Mak MD [address] [facility] Cancer [address] [address] Surgeon Otolaryngology 11/21/21 Alice Chou, RN None None Registered Nurse 02/14/25
--- OUTSIDE RECORDS SUMMARY | 2025-03-22 09:59 | XMS_ITS | Encounter Summary ---
Author Organization Healthcare Address [address] [place] [address] Care Team Providers Care Cam Maker Name Role Phone Pcp, No Primary Care Provider Unavailabl Sergey Oreilly MD Primary Care Provider [phone] Jean Mak MD Unavailable [phone] Alice Chou RN Unavailable Unavailable Encounter Details Date Type Department Care Team (Late st Contact Info) Description 09/04/2021 Orders Only External Location [address] [place] [id number] Cristian Griffith MD [address] [place] [address] Social History Tobacco Use Types Packs/Day Years [...] EST Appointment [facility] [address] [place] [phone] 2025 9:00 AM EST Appointment [facility] [address] [place] [address] 04/14/2025 7:45 AM EST Clinical Support [facility] [address] [place] [address] 04/14/2025 8:00 AM EST Office Visit [facility] [address] [place] [address] Edison Skaggs MD [address] [place] [address] 04/14/2025 9:30 AM EST Appointment [facility] [address] [place] [address] 04/16/2025 10:30 AM EST Appointment [facility] [address] [place] [address] 04/28/2025 8:30 AM EST Appointment [facility] [address] [place] [address] 04/30/2025 10:00 AM EST Appointment [facility] [address] [place] [address] 06/29/2025 12:30 PM EDT Clinical Support [facility] [address] [address] 06/29/2025 1:00 PM EDT Office Visit [facility] [address] [phone] Danny Coon MD [address] [phone] documented as of this encounter Procedures Procedure [...] on filedocumented in this encounter Care Teams Cam Maker Relationship Specialty Start Date End Date Pcp, No [address] [place] [address] PCP - General Family Medicine 03/31/21 11/12/21 Sergey Oh MD [address] [place] [address] PCP - General 11/13/21 Jean Mak MD 800 [facility] Cancer [address] [address] Surgeon Otolaryngology 11/21/21 Alice Chou, RN None None Registered Nurse 02/14/25 documented as of this encounter
--- OUTSIDE RECORDS SUMMARY | 2025-03-22 09:59 | XMS_ITS | Encounter Summary ---
Author Organization Healthcare Address [address] [place] [address] Care Team Providers Care Calibration Technician Name Role Phone Pcp, No Primary Care Provider Unavailabl Sergey Oreilly MD Primary Care Provider [phone] Jean Mak MD Unavailable [phone] Alice Chou RN Unavailable Unavailable Encounter Details Date Type Department Care Team (Late Contact Info) Description 08/11/2020 Orders Only External Location [address] [place] [phone] Provider, External Social History Tobacco Use Types [...] EST Appointment [facility] [address] [place] [address] 2025 9:00 AM EST Appointment [facility] [address] [place] [address] 04/14/2025 7:45 AM EST Clinical Support [facility] [address] [place] [address] 04/14/2025 8:00 AM EST Office Visit [facility] [address] [place] [address] Edison Skaggs MD [address] [place] [address] 04/14/2025 9:30 AM EST Appointment [facility] [address] [place] [address] 04/16/2025 10:30 AM EST Appointment [facility] [address] [place] [address] 04/28/2025 8:30 AM EST Appointment [facility] [address] [place] [address] 04/30/2025 10:00 AM EST Appointment [facility] [address] [place] [phone] 06/29/2025 12:30 PM EDT Clinical Support [facility] 800 [facility], [address] [place] [phone] 06/29/2025 1:00 PM EDT Office Visit [facility] [address] [address] Danny Coon MD [address] [place] [phone] documented as of this encounter Procedures Procedure Name Priority Date/Time Associated Diagnosis Comments CT NEURO OUTSIDE IMAGES 08/11/2020 10:22 PM EDT documented in this encounter Results * CT NEURO OUTSIDE IMAGES (08/11/2020 10:22 PM EDT) Anatomical Region Laterality Modality Computed Tomogra phy 08/11/2020 10:2 2 PM EDT External Provider IMG CT PROCEDURES Final Result documented in this encounter Visit Diagnoses Not on filedocumented in this encounter Care Teams Calibration Technician Relationship Specialty Start Date End Date Pcp, No [address] [place] [address] PCP - General Family Medicine 03/31/21 11/12/21 Sergey Oh MD [address] [place] [phone] PCP - General 11/13/21 Jean Mak MD [address] [place] [address] [address] Surgeon Otolaryngology 11/21/21 Alice Chou RN None None Registered Nurse 02/14/25 documented as of this encounter
--- NOTE | 2025-03-22 11:08 | PC.NURSE ---
6 Minute Minute Walk test completed without incident.
== END 2025-03-22 23:59 | disposition home or self-care (01) ==
LOC: RT 09:53
PROVIDERS: PCP Family Medicine; Visit Provider Internal Medicine Pulmonary Disease
DX: R06.09 Other forms of dyspnea (principal); R06.02 Shortness of breath
CPT/HCPCS: 94618